=== PATIENT | male | born 1950 | race Caucasian/White ===

== ENCOUNTER 2016-10-10 00:38 | Observation (INO) | payer OTHER ==
[~2016-10-10] VITALS: Ht 172.7 cm; Wt 76.0 kg
[2016-10-10] VITALS (32 sets, daily range): BP systolic 100–145; BP diastolic 50–96; PULSE 48–116; RESP 16–20; TEMP 97.9–98.8; O2SAT 92–100
[~2016-10-10 00:38] MED LIST: 1-ME1LIQ OR; ASPI81TA11 OR; CYCL1PAK PO; GEMF600T PO; IBUP800T23 PO; LEVI20TA PO; LIPI20TA PO; LISI-360 PO; METO25 PO; PRIL40CA PO; RANI150 PO; VENTAER INH
[2016-10-10] MEDS ORDERED: ATOR40TA16 PO (00:49)
[2016-10-10] MEDS ORDERED: ASPI81CH CHEW (00:49)
[2016-10-10] MEDS ORDERED: AMLO10TA2 PO (00:49)
[2016-10-10] MEDS ORDERED: PRIL20TA2 PO (00:49)
[2016-10-10] MEDS ORDERED: METO-424 PO (00:49)
[2016-10-10] MEDS ORDERED: LISI10TA3 PO (00:49)
[2016-10-10] MEDS ORDERED: ASPIRIN 81 MG CHEW TAB PO ONE (01:00)
[2016-10-10] MEDS ORDERED: SODIUM CHLORIDE 0.9% FLUSH 10 ML FLUSH IVF PRN (01:00)
[2016-10-10] MEDS ORDERED: DILTIAZEM HCL 25 MG/5 ML VIAL IV ONE (01:00)
--- NOTE | 2016-10-10 01:06 | RADRPT ---
EXAM DATE/TIME: 10/10/2016 00:45 [place] COMPARISON: No previous studies available for comparison. INDICATIONS : Pt having chest palpitations and A-Fib tonight. MEDICAL HISTORY : Hypertension. Hypercholesterolemia. Gastroesophageal reflux disease. SURGICAL HISTORY : None. ENCOUNTER: Initial ACUITY: 1 day PAIN SCORE: 8/10 LOCATION: Bilateral chest FINDINGS: 2 AP semierect views of the chest demonstrates the lungs to be symmetrically aerated without evidence of mass, infiltrate or effusion. The cardiomediastinal contours are unremarkable. Osseous structur es are intact. CONCLUSION: No acute disease. Mt Dodd MD on October 10, 2016 at 1:04 Board Certified Radiologist. This report was verified electronically.
[2016-10-10] MEDS ORDERED: DILTIAZEM INJ 125 MG in SODIUM CHLORIDE 0.9% INJ 100 ML IV SCH (01:15)
[2016-10-10] MEDS ORDERED: DILTIAZEM HCL 50 MG/10 ML VIAL IV PUSH ONE (01:15)
[2016-10-10 01:17] LABS: AUTOMATED NEUTROPHIL # 4.3 TH/MM3 (1.8-7.7); BASOPHIL # 0.1 TH/MM3 (0-0.2); BASOPHIL % 0.8 % (0.0-2.0); EOSINOPHIL # 0.1 TH/MM3 (0-0.4); EOSINOPHIL % 1.3 % (0.0-4.0); HEMATOCRIT 46.8 % (39.0-51.0); HEMO FLAGS DIFF FINAL; LYMPH % 33.1 % (9.0-44.0); LYMPHOCYTE # 2.4 TH/MM3 (1.0-4.8); MEAN CELL VOLUME 97.3 FL (80.0-100.0); MEAN CORPUSCULAR HEMOGLOBIN 33.8 PG (27.0-34.0); MEAN CORPUSCULAR HGB CONC 34.8 % (32.0-36.0); MONO % 6.4 % (0.0-8.0); NEUT % 58.4 % (16.0-70.0); PLATELET COUNT 219 TH/MM3 (150-450); RED BLOOD COUNT 4.81 MIL/MM3 (4.50-5.90); RED CELL DISTRIBUTION WIDTH 12.5 % (11.6-17.2); WHITE BLOOD COUNT 7.3 TH/MM3 (4.0-11.0)
[2016-10-10] MEDS ORDERED: MORPHINE SULFATE 4 MG/ML INJ IV PUSH ONE ×2 (01:30→05:15)
[2016-10-10 01:38] LABS: ANION GAP 13 MEQ/L (5-15); BICARBONATE 19.9 MEQ/L (21.0-32.0); BLOOD UREA NITROGEN 13 MG/DL (7-18); CHLORIDE 107 MEQ/L (98-107); GLOMERULAR FILTRATION RATE 71 ML/MIN (>89); POTASSIUM 3.6 MEQ/L (3.5-5.1); SODIUM (NA) 140 MEQ/L (136-145)
[2016-10-10 01:42] LABS: CREATINE KINASE 121 U/L (39-308)
[2016-10-10 01:45] LABS: INTERNATIONAL NORMALIZED RATIO 0.9 RATIO; PROTHROMBIN TIME - PATIENT 10.4 SEC (9.8-11.6)
[2016-10-10 01:54] LABS: CKMB 1.7 NG/ML (0.5-3.6)
--- NOTE | 2016-10-10 02:32 | PD ---
HPI Chief Complaint: Cardiac Complaint Time Seen by Provider: 00:47 Travel History International Travel<30 days: No Contact w/Intl Traveler<30days: No Traveled to known affect area: No History of Present Illness HPI Patient is a 66-year-old male who comes in complaining of heart palpitations, chest pain, shortness of breath. He said this started this evening. He says he had about 3 beers tonight. He says he is feeling well prior to the event. He says this happened to him about 10 years ago, and it sounds like he might of had an ablation at that time. He has not been on any medications for this. He denies fever or chills. He denies any recent travel. He denies any leg swelling or calf tenderness. PFSH Past Medical History Blood Disorders: No Anxiety: No Depression: No Heart Rhythm Problems: No Cancer: No Cardiovascular Problems: Yes High Cholesterol: Yes Chemotherapy: No Chest Pain: No Congestive Heart Failure: No Diminished Hearing: No Endocrine: No Gastrointestinal Disorders: Yes GERD: Yes Genitourinary: No Hepatitis: No Hiatal Hernia: No Hypertension: Yes Immune Disorder: No Musculoskeletal: No Neurologic: No Psychiatric: No Reproductive: No Respiratory: No Myocardial Infarction: No Radiation Therapy: No Ulcer: No Past Surgical History Abdominal Surgery: No AICD: No Appendectomy: No Arteriovenous Shunt: No Cardiac Surgery: No Cholecystectomy: No Ear Surgery: No Endocrine Surgery: No Eye Surgery: No Genitourinary Surgery: No Gynecologic Surgery: No Insulin Pump: No Joint Replacement: No Oral Surgery: No Pacemaker: No Thoracic Surgery: No Other Surgery: Yes Social History Alcohol Use: Yes (SOCIAL) Tobacco Use: Yes (1/2 PACK A DAY) Substance Use: No Allergies-Medications (Allergen,Severity, Reaction): Coded Allergies: Monosodium Glutamate (Verified Allergy, Intermediate, Hives, 10/10/16) Reported Meds & Prescriptions Reported Meds & Active Scripts Active Reported Prilosec (Omeprazole Magnesium) 20 Mg Tab 20 Mg PO DAILY Aspirin 81 Mg Chew 81 Mg CHEW DAILY Atorvastatin (Atorvastatin Calcium) 40 Mg Tab 40 Mg PO HS Metoprolol Tartrate 37.5 Mg Tab 37.5 Mg PO DAILY Lisinopril 10 Mg Tab 10 Mg PO DAILY Amlodipine (Amlodipine Besylate) 10 Mg Tab 10 Mg PO DAILY Review of Systems Except as stated in HPI: all other systems reviewed are Neg General / Constitutional: No: Fever, Chills HENT: No: Headaches, Lightheadedness Cardiovascular: Positive: Chest Pain or Discomfort, Palpitations Respiratory: Positive: Shortness of Breath Gastrointestinal: No: Nausea, Vomiting Musculoskeletal: No: Myalgias, Edema, Pain Skin: No Rash, No Change in Pigmentation Neurologic: No: Weakness, Dizziness Physical Exam Narrative GENERAL: Awake and alert, in no acute distress. SKIN: Focused skin assessment warm/dry. HEAD: Atraumatic. Normocephalic. EYES: Pupils equal and round. No scleral icterus. ENT: Mucous membranes pink and moist. NECK: Trachea midline. No JVD. CARDIOVASCULAR: Irregular rhythm, rapid rate. No murmur appreciated. RESPIRATORY: No accessory muscle use. Clear to auscultation. Breath sounds equal bilaterally. GASTROINTESTINAL: Abdomen soft, non-tender, nondistended. MUSCULOSKELETAL: No obvious deformities. No clubbing. No cyanosis. No edema. NEUROLOGICAL: Awake and alert. No obvious cranial nerve deficits. Motor grossly within normal limits. Normal speech. PSYCHIATRIC: Appropriate mood and affect; insight and judgment normal. Data Data Last Documented VS Vital Signs Date Time Temp Pulse Resp B/P Pulse Ox O2 Delivery O2 Flow Rate FiO2 10/10/16 03:00 90 16 105/65 98 Nasal Cannula 2 10/10/16 00:41 98.8 Orders Ecg Monitoring (10/10/16 00:47) Blood Pressure (10/10/16 00:47) Iv Access Insert/Monitor (10/10/16 00:47) Oximetry (10/10/16 00:47) Vital Signs (10/10/16 00:47) Sodium Chloride 0.9% Flush (Ns Flush) (10/10/16 01:00) Diltiazem Inj (Cardizem Inj) (10/10/16 01:15) Basic Metabolic Panel (Bmp) (10/10/16 00:47) Ckmb (Isoenzyme) Profile (10/10/16 00:47) Complete Blood Count With Diff (10/10/16 00:47) Magnesium (Mg) (10/10/16 00:47) Prothrombin Time / Inr (Pt) (10/10/16 00:47) Act Partial Throm Time (Ptt) (10/10/16 00:47) Troponin I (10/10/16 00:47) Chest, Single Ap (10/10/16 00:47) Aspirin Chew (Aspirin Chew) (10/10/16 01:00) Diltiazem Inj (Cardizem Inj) (10/10/16 01:00) Diltiazem Inj (Cardizem Inj) (10/10/16 01:15) Morphine Inj (Morphine Inj) (10/10/16 01:30) CKMB (10/10/16 00:58) CKMB% (10/10/16 00:58) Electrocardiogram (10/10/16 ) Admit Order (Ed Use Only) (10/10/16 ) Labs Laboratory Tests Test 10/10/16 00:58 White Blood Count 7.3 TH/MM3 Red Blood Count 4.81 MIL/MM3 Hemoglobin 16.3 GM/DL Hematocrit 46.8 % Mean Corpuscular Volume 97.3 FL Mean Corpuscular Hemoglobin 33.8 PG Mean Corpuscular Hemoglobin 34.8 % Concent Red Cell Distribution Width 12.5 % Platelet Count 219 TH/MM3 Mean Platelet Volume 7.9 FL Neutrophils (%) (Auto) 58.4 % Lymphocytes (%) (Auto) 33.1 % Monocytes (%) (Auto) 6.4 % Eosinophils (%) (Auto) 1.3 % Basophils (%) (Auto) 0.8 % Neutrophils # (Auto) 4.3 TH/MM3 Lymphocytes # (Auto) 2.4 TH/MM3 Monocytes # (Auto) 0.5 TH/MM3 Eosinophils # (Auto) 0.1 TH/MM3 Basophils # (Auto) 0.1 TH/MM3 CBC Comment DIFF FINAL Differential Comment Prothrombin Time 10.4 SEC Prothromb Time International 0.9 RATIO Ratio Activated Partial 29.0 SEC Thromboplast Time Sodium Level 140 MEQ/L Potassium Level 3.6 MEQ/L Chloride Level 107 MEQ/L Carbon Dioxide Level 19.9 MEQ/L Anion Gap 13 MEQ/L Blood Urea Nitrogen 13 MG/DL Creatinine 1.05 MG/DL Estimat Glomerular Filtration 71 ML/MIN Rate Random Glucose 194 MG/DL Calcium Level 8.7 MG/DL Magnesium Level 2.0 MG/DL Total Creatine Kinase 121 U/L Creatine Kinase MB 1.7 NG/ML Troponin I LESS THAN 0.02 NG/ML MDM Medical Decision Making Medical Screen Exam Complete: Yes Emergency Medical Condition: Yes Medical Record Reviewed: Yes Interpretation(s) ECG shows A. fib with RVR. Differential Diagnosis ACS versus atrial fibrillation versus electrolyte abnormality versus dehydration versus NSTEMI versus STEMI Narrative Course Patient is a 66-year-old male comes in complaining of rapid heart rate and chest pain. He is found to have any irregular rhythm, rapid rate. He is in A. fib with RVR. IV established, patient connected to secured entrance monitor. Labs sent. He received 20 mg of Cardizem by EMS prior to arrival. Given second bolus of Cardizem here and started on a drip. His pulse improved from those 140s to the high 90s, low 100s. He is given morphine for chest pain. Labs show no acute abnormalities. Chest x-ray shows no acute abnormalities. He will be admitted for further management. Diagnosis Primary Impression: Atrial fibrillation with RVR Additional Impression: Chest pain Qualified Code: R07.9 - Chest pain, unspecified type Admitting Information Admitting Physician Requests: Admit Condition: Stable Suzy Ovalle MD Oct 10, 2016 02:32
[2016-10-10] MEDS ORDERED: POTASSIUM CHLORIDE 20 MEQ CONTROLLED RELEASE TAB PO ONE (05:15)
[2016-10-10] MEDS: METOPROLOL TARTRATE 25 MG TAB PO SCH ×2 (09:33→21:15)
[2016-10-10] MEDS ORDERED: CALCIUM CARBONATE 500 MG CHEWABLE TAB CHEW PRN (12:00)
[2016-10-10] MEDS ORDERED: DILTIAZEM HCL 60 MG TAB PO SCH (12:00)
--- NOTE | 2016-10-10 12:11 | ECHRPT ---
Indication: Persistent atrial fibrillation CONCLUSIONS Normal left ventricular size. The left ventricular systolic function is normal with an estimated ejection fraction in the range of 55-60%. Normal left ventricular size. The left ventricular systolic function is normal with an estimated ejection fraction in the range of 55-60%. Mild concentric left ventricular hypertrophy. Normal atrial septal thickness. Mild mitral annular calcification. Mild thickening of the mitral valve leaflets. Trace mitral valve regurgitation. . The aortic valve is not well visualized. Aortic valve sclerosis is present. Mild aortic valve regurgitation. There is mild tricuspid valve regurgitation. RVSP 35mmhg The pulmonary valve is not well visualized. The inferior vena cava is dilated. BP: 100 / 50 HR: 72 Rhythm: MEASUREMENTS (Male / Female) Normal Values Technical Quality:Good, Fair 2D ECHO LV Diastolic Diameter PLAX 4.4 cm 4.2 - 5.9 / 3.9 - 5.3 cm LV Systolic Diameter PLAX 3.2 cm IVS Diastolic Thickness 1.7 cm 0.6 - 1.0 / 0.6 - 0.9 cm LVPW Diastolic Thickness 1.2 cm 0.6 - 1.0 / 0.6 - 0.9 cm LV Relative Wall Thickness 0.7 RV Internal Dim ED PLAX 2.5 cm M-MODE Aortic Root Diameter MM 3.3 cm LA Systolic Diameter MM 3.2 cm LA Ao Ratio MM 1.0 AV Cusp Separation MM 2.1 cm DOPPLER TR Peak Velocity 251.0 cm/s TR Peak Gradient 25.2 mmHg FINDINGS LEFT VENTRICLE Normal left ventricular size. The left ventricular systolic function is normal with an estimated ejection fraction in the range of 55-60%. Mild concentric left ventricular hypertrophy. RIGHT VENTRICLE Normal right ventricular size and systolic function. LEFT ATRIUM The left atrial size is normal. RIGHT ATRIUM The right atrial size is normal. ATRIAL SEPTUM Normal atrial septal thickness. AORTA The aortic root and proximal ascending aorta are normal in size on limited imaging. MITRAL VALVE Mild mitral annular calcification. Mild thickening of the mitral valve leaflets. Trace mitral valve regurgitation. AORTIC VALVE . The aortic valve is not well visualized. Aortic valve sclerosis is present. Mild aortic valve regurgitation. TRICUSPID VALVE Structurally normal tricuspid valve. No tricuspid valve stenosis or regurgitation. There is mild tricuspid valve regurgitation. RVSP 35mmhg PULMONARY VALVE The pulmonary valve is not well visualized. VESSELS The inferior vena cava is dilated. PERICARDIUM No pericardial effusion. OTHER FINDINGS IVC 2.3 Tommy Hill MD (Electronically Signed) Final Date:10 October 2016 12:11
[2016-10-10 12:13] LABS: ANION GAP 10 MEQ/L (5-15); BLOOD UREA NITROGEN 14 MG/DL (7-18); CHLORIDE 108 MEQ/L (98-107); GLOMERULAR FILTRATION RATE 99 ML/MIN (>89); POTASSIUM 4.8 MEQ/L (3.5-5.1); SODIUM (NA) 140 MEQ/L (136-145)
[2016-10-10] MEDS: PANTOPRAZOLE SOD 20 MG DELAYED RELEASE TAB PO SCH (12:14)
[2016-10-10] MEDS: DILTIAZEM HCL 30 MG TAB PO SCH (12:14)
--- NOTE | 2016-10-10 12:43 | HHI.HP ---
HPI Service CP Hospitalists Primary Care Physician No Primary Care Physician Admission Diagnosis Afib with RVR Chief Complaint: palpitations Travel History International Travel<30 Days: No Contact w/Intl Traveler <30 Da: No Traveled to Known Affected Are: No History of Present Illness Patient is a pleasant 66-year-old male with history of hypertension, hyperlipidemia, and prostate cancer. Patient presented to the ER yesterday with complaint of palpitations which had been occurring for approximately 90 minutes prior to arrival. Patient stated that he had some associated mild chest pain. There was no shortness of breath, no nausea or vomiting, no diaphoresis. Per patient in the field his heart rate was in the 130s. In the ER patient was found to be in atrial fibrillation with rapid ventricular response. Patient was given IV Cardizem and then started on a Cardizem drip. This morning patient was hypotensive with controlled heart rate, so Cardizem drip was stopped. Blood pressure readings have improved, and I have started patient on PO Cardizem. Patient has a long smoking history. Patient chronically has what he describes as GERD. Patient complains of a burning pain with GERD and points to his mid chest and left chest. Patient states that he is prescribed Prilosec, but this does not really improve his symptoms. Patient states that he has previously been admitted for palpitations, but could not remember the specifics. I have reviewed the patient's records in [facility]. Patient had several admissions and ER visits in 2005 and 2006 for palpitations. In 2005 patient was brought to the ER by EMS for possible SVT patient received Adenocard in the ER. But per the ER physician's notes, there were no cardiac strips to review. Patient was again in the ER and subsequently admitted in June 2006 with complaint of chest pain and palpitations. 06/17/2006 patient had a Lexiscan which was essentially normal. Patient returned to the ER January 2007 with complaint of chest pain at that time patient had a cardiac catheterization performed by Dr. Bullard 01/14/17. The diagonal branches were noted to have a 30% to 40% stenosis proximally. The first obtuse marginal branch artery mid segment noted to have a 40-50% stenosis. The right coronary artery had a 30-40% stenosis of the mid segment. EF was estimated at 60%. Review of Systems Constitutional: DENIES: Diaphoretic episodes, Fatigue, Fever, Weight gain, Weight loss, Chills, Dizziness, Change in appetite, Night Sweats Endocrine: DENIES: Heat/cold intolerance, Polydipsia, Polyuria, Polyphagia Eyes: DENIES: Blurred vision, Diplopia, Eye inflammation, Eye pain, Vision loss , Photosensitivity, Double Vision Ears, nose, mouth, throat: DENIES: Tinnitus, Hearing loss, Vertigo, Nasal discharge, Oral lesions, Throat pain, Hoarseness, Ear Pain, Running Nose, Epistaxis, Sinus Pain, Toothache, Odynophagia Respiratory: DENIES: Apneas, Cough, Snoring, Wheezing, Hemoptysis, Sputum production, Shortness of breath Cardiovascular: COMPLAINS OF: Chest pain, Palpitations, DENIES: Syncope, Dyspnea on Exertion, PND, Lower Extremity Edema, Orthopnea, Claudication Gastrointestinal: DENIES: Abdominal pain, Black stools, Bloody stools, BRB per rectum, Constipation, Diarrhea, GERD, Nausea, Reflux, Vomiting, Difficulty Swallowing, Anorexia Genitourinary: DENIES: Urinary frequency, Urinary incontinence, Urgency, Hematuria, Dysuria, Nocturia Musculoskeletal: DENIES: Joint pain, Muscle aches, Stiffness, Joint Swelling, Back pain, Neck pain Integumentary: DENIES: Abnormal pigmentation, Nail changes, Pruritus, Rash Hematologic/lymphatic: DENIES: Bruising, Lymphadenopathy Immunologic/allergic: DENIES: Eczema, Urticaria Neurologic: DENIES: Abnormal gait, Headache, Localized weakness, Paresthesias, Seizures, Speech Problems, Tremor, Poor Balance Psychiatric: DENIES: Anxiety, Confusion, Mood changes, Depression, Hallucinations, Agitation, Suicidal Ideation, Homicidal Ideation, Delusions, History of Bipolar, History of Schizophrenia Past Family Social History Past Medical History 1) hypertension 2) hyperlipidemia 3) GERD 4) erectile dysfunction 5) history of prostate cancer, received radiation therapy Past Surgical History Repair of left ankle fracture following orthopedic injuries secondary to fall Reported Medications Reported Meds & Active Scripts Active Reported Prilosec (Omeprazole Magnesium) 20 Mg Tab 20 Mg PO DAILY Aspirin 81 Mg Chew 81 Mg CHEW DAILY Atorvastatin (Atorvastatin Calcium) 40 Mg Tab 40 Mg PO HS Metoprolol Tartrate 37.5 Mg Tab 37.5 Mg PO DAILY Lisinopril 10 Mg Tab 10 Mg PO DAILY Amlodipine (Amlodipine Besylate) 10 Mg Tab 10 Mg PO DAILY Allergies: Coded Allergies: Monosodium Glutamate (Verified Allergy, Intermediate, Hives, 10/10/16) Family History Mother secondary to cancer, possibly lung cancer Father to dates 78, possibly due to unspecified liver disease Patient has 2 brothers and 2 sisters, some of whom have hypertension Social History - originally from [facility] - Patient is retired - , 2 grown children but they do not live locally - Patient smokes one pack per day for the last 45 years - Alcohol: 2 beers per day, patient denies any history of alcohol withdrawal - Patient denies use of marijuana or any other illicit drugs Physical Exam Vital Signs Vital Signs Date Time Temp Pulse Resp B/P Pulse Ox O2 Delivery O2 Flow Rate FiO2 10/10/16 11:21 98.3 92 18 123/96 92 10/10/16 11:01 64 10/10/16 10:00 74 10/10/16 09:00 74 10/10/16 08:45 94 Nasal Cannula 10/10/16 08:45 97.9 97 18 114/77 94 10/10/16 08:01 62 10/10/16 07:00 72 10/10/16 06:15 98.0 79 20 100/50 92 10/10/16 06:15 Nasal Cannula 2.00 10/10/16 05:25 88 16 111/68 98 Nasal Cannula 2 10/10/16 04:32 105 16 127/62 100 Nasal Cannula 2 10/10/16 04:15 95 16 137/84 95 Nasal Cannula 2 10/10/16 03:00 90 16 105/65 98 Nasal Cannula 2 10/10/16 02:27 79 16 138/65 94 Room Air 10/10/16 02:00 105 130/60 10/10/16 01:45 105 110/56 10/10/16 01:30 100 109/57 10/10/16 01:15 105 16 130/67 98 10/10/16 00:41 98.8 116 17 145/86 94 Physical Exam GENERAL: This is a well-nourished, well-developed patient, in no apparent distress. SKIN: No rashes, ecchymoses or lesions. Cool and dry. HEAD: Atraumatic. Normocephalic. No temporal or scalp tenderness. EYES: Pupils equal round and reactive. Extraocular motions intact. No scleral icterus. No injection or drainage. ENT: Nose without bleeding, purulent drainage or septal hematoma. Throat without erythema, tonsillar hypertrophy or exudate. Uvula midline. Airway patent. NECK: Trachea midline. No JVD or lymphadenopathy. Supple, nontender, no meningeal signs. CARDIOVASCULAR: Regular rate and rhythm without murmurs, gallops, or rubs. RESPIRATORY: Clear to auscultation. Breath sounds equal bilaterally. No wheezes , rales, or rhonchi. GASTROINTESTINAL: Abdomen soft, non-tender, nondistended. No hepato-splenomegaly , or palpable masses. No guarding. MUSCULOSKELETAL: Extremities without clubbing, cyanosis, or edema. No joint tenderness, effusion, or edema noted. No calf tenderness. Negative Homans sign bilaterally. NEUROLOGICAL: Awake and alert. Cranial nerves II through XII intact. Motor and sensory grossly within normal limits. Five out of 5 muscle strength in all muscle groups. Normal speech. Laboratory Laboratory Tests Test 10/10/16 10/10/16 10/10/16 00:58 05:09 11:23 White Blood Count 7.3 Red Blood Count 4.81 Hemoglobin 16.3 Hematocrit 46.8 Mean Corpuscular Volume 97.3 Mean Corpuscular Hemoglobin 33.8 Mean Corpuscular Hemoglobin 34.8 Concent Red Cell Distribution Width 12.5 Platelet Count 219 Mean Platelet Volume 7.9 Neutrophils (%) (Auto) 58.4 Lymphocytes (%) (Auto) 33.1 Monocytes (%) (Auto) 6.4 Eosinophils (%) (Auto) 1.3 Basophils (%) (Auto) 0.8 Neutrophils # (Auto) 4.3 Lymphocytes # (Auto) 2.4 Monocytes # (Auto) 0.5 Eosinophils # (Auto) 0.1 Basophils # (Auto) 0.1 CBC Comment DIFF FINAL Differential Comment Prothrombin Time 10.4 Prothromb Time International 0.9 Ratio Activated Partial 29.0 Thromboplast Time Sodium Level 140 140 Potassium Level 3.6 4.8 Chloride Level 107 108 Carbon Dioxide Level 19.9 22.0 Anion Gap 13 10 Blood Urea Nitrogen 13 14 Creatinine 1.05 0.79 Estimat Glomerular Filtration 71 99 Rate Random Glucose 194 101 Calcium Level 8.7 8.8 Magnesium Level 2.0 Total Creatine Kinase 121 Creatine Kinase MB 1.7 Troponin I LESS THAN 0.02 LESS THAN 0.02 LESS THAN 0.02 Thyroid Stimulating Hormone 0.417 3rd Gen Result Diagram: 10/10/16 0058 10/10/16 1123 Imaging Last Impressions Chest X-Ray 10/10/16 0047 Signed Impressions: Service Date/Time: Monday, October 10, 2016 00:45 - CONCLUSION: No acute disease. Mt Dodd MD Septic Shock Reassessment Heart: Regular rate and rhythm Lungs: Clear Skin: Warm Peripheral Pulses: Bounding Right Radial Bounding Left Radial Bounding Right Popliteal Bounding Left Popliteal Bounding Right Dorsalis Pedis Bounding Left Dorsalis Pedis Bounding Right Posterior Tibial Bounding Left Posterior Tibial Capillary Refill: Brisk Assessment and Plan Problem List: (1) Atrial fibrillation with RVR Status: Acute Plan: - Patient admitted with atrial fibrillation with rapid ventricular response - He should receive IV Cardizem boluses and started on Cardizem drip in the ER - Cardizem drip stopped (10/10/16) due to hypotension, blood pressure recovered - Patient started on short acting by mouth Cardizem 30 mg by mouth every 6 hours - TSH is within normal limits - Echocardiogram pending - Patient seen by cardiology, Dr. Hill - Continue aspirin 81 mg by mouth daily - We'll review antiplatelet therapy prior to discharge X - Patient with history of hospitalization in 2005 and 2006 with complaints of chest pain or palpitations - Lexiscan 06/17/2006 --> no acute findings - [facility] 01/[address] Bullard - The diagonal branches were noted to have a 30% to 40% stenosis proximally. - The first obtuse marginal branch artery mid segment noted to have a 40-50% stenosis. - The right coronary artery had a 30-40% stenosis of the mid segment. - EF was estimated at 60%. - Holter 06/2006 - NSR, runs of SVT with longest of 8 beats - case d/w Dr. Hill (10/10/16) - Serial cardiac enzymes are negative - Obtain Lexiscan in a.m. (2) Chest pain Status: Acute Plan: - see above (3) GERD (gastroesophageal reflux disease) Status: Acute Plan: - continue PPI - tums prn - anginal equivalent? (4) Hyperlipidemia Status: Acute Plan: - LDL 141 (09/09/16) - Triglycerides 261 (09/09/16) - Continue statin therapy - Obtain fasting lipid panel in a.m. (5) History of prostate cancer Status: Acute (6) Hypertension Status: Chronic Plan: - Outpatient Mr. Carrasco takes metoprolol, lisinopril, Norvasc - I am starting patient on short acting Cardizem - Hold outpatient blood pressure medications for now - Observe blood pressure readings Physician Certification 2 Midnight Certification Type: Admission for Inpatient Services Order for Inpatient Services The services are ordered in accordance with Medicare regulations or non- Medicare payer requirements, as applicable. In the case of services not specified as inpatient-only, they are appropriately provided as inpatient services in accordance with the 2-midnight benchmark. Estimated LOS (days): 3 3 days is the estimated time the patient will need to remain in the hospital, assuming treatment plan goals are met and no additional complications. Post-Hospital Plan: Not yet determined Problem Qualifiers (1) Chest pain: Qualified Code: R07.9 - Chest pain, unspecified type (2) GERD (gastroesophageal reflux disease): Qualified Code: K21.9 - Gastroesophageal reflux disease, esophagitis presence not specified (3) Hyperlipidemia: Qualified Code: E78.2 - Mixed hyperlipidemia (4) Hypertension: Qualified Code: I10 - Essential hypertension Jaylen Menjivar DO Oct 10, 2016 12:43
--- NOTE | 2016-10-10 14:22 | MB ---
cc: TOMMY HILL EDWARD B. DO DATE OF CONSULTATION 10/10/16 I have reviewed prior hospital records and spoken with the patient. HISTORY OF PRESENT ILLNESS He is a 66-year-old white man I am seeing for atrial fibrillation. The patient has had atypical left-sided chest discomfort in the past with normal SPECT nuclear in 2006. Catheterization 01/2007 showed normal left ventricular function, 30-40% narrowing of the diagonal, 40-50% obtuse marginal #1, 30-40% mid RCA. He gets occasional atypical chest discomfort and reflux which is not exertional and unchanged. Late last night the patient developed fluttering in his heart beat. There were no associated symptoms. He sought attention in the emergency room and apparently had atrial fibrillation with mildly elevated response and was given diltiazem by paramedics. His diltiazem has been stopped because of some bradycardia. EKG showed no acute changes. Chest x-ray showed no active disease. LABORATORY FINDINGS TSH is pending. CBC, PT/PTT normal. Potassium 3.6, glucose 194, troponins negative x2 with normal CPK. MEDICATIONS PRIOR TO ADMISSION Reviewed. PAST MEDICAL HISTORY 1. Hypertension. 2. Hyperlipidemia. 3. COPD with tobacco abuse. 4. Prostate cancer with radiation therapy. 5. Atypical chest pain. SOCIAL HISTORY He is and smokes a half-pack per day and has two to three beers per day. ALLERGIES MSG. FAMILY HISTORY Noncontributory for premature coronary disease. The patient has mild stable dyspnea on exertion but no other cardiopulmonary symptoms or history except for atypical chest discomfort which he still has and has had since yesterday in his left upper anterolateral chest. The patient has mild stable dyspnea at moderate activity level such as climbing stairs. He notes no fevers, chills, sputum production. PHYSICAL EXAMINATION VITAL SIGNS: On exam afebrile. Vital signs stable. HEENT: There are no xanthelasma and oral pharyngeal mucosa normal. CHEST: Without significant kyphoscoliosis. There is markedly decreased breath sounds with mild giang expiratory wheezes. NECK: JVD normal. CARDIOVASCULAR: S1-S2. No murmurs or gallops with an irregular rhythm. ABDOMEN: Benign. EXTREMITIES: Show no cyanosis, clubbing or edema. Pulses 1 to 2+ throughout without bruits. He has not ambulated. PROBLEM 1. Atrial fibrillation with mildly rapid response. 2. Atypical chest pain. 3. Hypertension. 4. Probable diabetes. 5. Hyperlipidemia. 6. Tobacco abuse. RECOMMENDATIONS 1. Diltiazem has been discontinued. I will restart his beta blockers. This can be increased for rate control. 2. Given the patient's risk factors I would lean towards full anticoagulation with one of the newer agents. The risks/benefits/alternatives have been explained. The patient is hesitant and I will leave it to the [facility] hospitalist to discuss with the patient and possibly start. This would be instead of aspirin 3. Low cholesterol/salt diet. 4. Diabetic workup per primary service. 5. TSH level and echocardiogram are pending. 6. Tobacco abstinence which we have discussed. 7. 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 He will likely need a SPECT nuclear stress test as an outpatient but with negative enzyme this can be deferred. I have gone over the importance of risk factor modification. I will not follow but be available if needed. All questions were answered. Tommy Hill MD ASG/DOMITILA /8:30 AM /2:08 PM
[2016-10-10] MEDS: ATORVASTATIN 40 MG TAB PO SCH (21:15)
[2016-10-11] VITALS (27 sets, daily range): BP systolic 104–152; BP diastolic 58–89; PULSE 48–97; RESP 16–20; TEMP 97.8–98.2; O2SAT 92–97
[2016-10-11 05:17] LABS: BICARBONATE 23.2 MEQ/L (21.0-32.0); MAGNESIUM 2.1 MG/DL (1.5-2.5); POTASSIUM 4.2 MEQ/L (3.5-5.1)
[2016-10-11] MEDS: DILTIAZEM HCL 30 MG TAB PO SCH ×2 (06:00→11:10)
[2016-10-11] MEDS: PANTOPRAZOLE SOD 20 MG DELAYED RELEASE TAB PO SCH (08:18)
[2016-10-11] MEDS: ASPIRIN 81 MG CHEW TAB CHEW SCH (08:19)
[2016-10-11] MEDS: METOPROLOL TARTRATE 25 MG TAB PO SCH ×3 (09:00→20:24)
--- NOTE | 2016-10-11 09:52 | EKG ---
Date Performed: 10/10/2016 Time Performed: 04:55:51 PTAGE: 66 years EKG: ATRIAL FIBRILLATION ABNORMAL RHYTHM ECG PREVIOUS TRACING : 01/14/2007 03.38 DOCTOR: Ramiro Arredondo Interpretating Date/Time 10/11/2016 09:41:42
--- NOTE | 2016-10-11 09:55 | EKG ---
Date Performed: 10/10/2016 Time Performed: 00:44:08 PTAGE: 66 years EKG: ATRIAL FIBRILLATION WITH RAPID VENTRICULAR RESPONSE NONSPECIFIC ST & T-WAVE ABNORMALITY ABN ORMAL ECG NO PREVIOUS TRACING DOCTOR: Ramiro Arredondo Interpretating Date/Time 10/11/2016 09:45:42
[2016-10-11] MEDS ORDERED: INFLUENZA VIRUS VACCINE (QUADRIVALENT) 0.5 ML SYR IM ONE (10:00)
[2016-10-11] MEDS ORDERED: PNEUMOCOCCAL POLYVALENT INJ 25 MCG/0.5 ML SYR IM ONE (10:00)
--- NOTE | 2016-10-11 11:24 | HHI.PR ---
Subjective Remarks No palpitations. No chest pain, sob, n/v, or diaphoresis. Objective Vitals Vital Signs Date Time Temp Pulse Resp B/P Pulse Ox O2 Delivery O2 Flow Rate FiO2 10/11/16 10:01 62 10/11/16 09:00 56 10/11/16 08:01 97.9 97 18 132/85 94 10/11/16 08:01 61 10/11/16 08:01 94 Nasal Cannula 10/11/16 07:01 50 10/11/16 06:00 49 10/11/16 05:00 50 10/11/16 04:21 98.1 51 16 112/58 94 10/11/16 04:00 56 10/11/16 03:00 50 10/11/16 02:00 54 10/11/16 01:00 58 10/11/16 00:46 98.1 54 16 104/58 92 10/11/16 00:00 55 10/10/16 23:00 52 10/10/16 22:00 56 10/10/16 21:22 95 Room Air 10/10/16 21:18 63 135/73 10/10/16 21:00 66 10/10/16 20:00 56 10/10/16 20:00 98.0 58 18 135/73 96 10/10/16 19:00 59 10/10/16 18:01 56 10/10/16 17:00 48 10/10/16 16:01 48 10/10/16 15:01 98.0 55 18 120/71 95 10/10/16 15:00 56 10/10/16 14:00 58 10/10/16 13:00 88 10/10/16 12:00 84 10/10/16 10/10/16 10/11/16 15:00 23:00 07:00 Intake Total 740 ml Output Total 1700 ml Balance -960 ml Intake Oral 690 ml IV Total 50 ml Output Urine Total 1700 ml # Voids 5 # Bowel Movements 0 Result Diagram: 10/10/16 0058 10/11/16 0420 Imaging Last Impressions Chest X-Ray 10/10/16 0047 Signed Impressions: Service Date/Time: Monday, October 10, 2016 00:45 - CONCLUSION: No acute disease. Mt Dodd MD Objective Remarks GENERAL: This is a well-nourished, well-developed patient, in no apparent distress. CARDIOVASCULAR: Regular rate and rhythm without murmurs, gallops, or rubs. RESPIRATORY: Clear to auscultation. Breath sounds equal bilaterally. No wheezes , rales, or rhonchi. GASTROINTESTINAL: Abdomen soft, non-tender, nondistended. Normal active bowel sounds MUSCULOSKELETAL: Extremities without clubbing, cyanosis, or edema. NEURO: Alert & Oriented x4 to person, place, time, situation. Moves all ext x4 A/P Problem List: (1) Atrial fibrillation with RVR Status: Acute Plan: - Patient admitted with atrial fibrillation with rapid ventricular response - He should receive IV Cardizem boluses and started on Cardizem drip in the ER - Cardizem drip stopped (10/10/16) due to hypotension, blood pressure recovered - Patient started on short acting by mouth Cardizem 30 mg by mouth every 6 hours , change to long acting cardizem, continue metoprolol 25mg BID - TSH is within normal limits - Echocardiogram pending - Patient seen by cardiology, Dr. Hill - Continue aspirin 81 mg by mouth daily - We'll review antiplatelet therapy prior to discharge X - Patient with history of hospitalization in 2005 and 2006 with complaints of chest pain or palpitations - Lexiscan 06/17/2006 --> no acute findings - [facility] 01/[address] Bullard - The diagonal branches were noted to have a 30% to 40% stenosis proximally. - The first obtuse marginal branch artery mid segment noted to have a 40-50% stenosis. - The right coronary artery had a 30-40% stenosis of the mid segment. - EF was estimated at 60%. - Holter 06/2006 - NSR, runs of SVT with longest of 8 beats - case d/w Dr. Hill (10/10/16) - Serial cardiac enzymes are negative - serial EKGs do NOT show acute ischemic changes - Lexiscan in a.m. 10/12/16. Pt received caffeine 10/11, so the study was postponed. - [id number] score is 1. The score will be 2, once pt turns 67 in 9 months. - would prefer pt start on eliquis. Pt is hesitant. - anticipate d/c to home 10/12, if lexiscan is WNL. (2) Chest pain Status: Acute Plan: - see above (3) GERD (gastroesophageal reflux disease) Status: Acute Plan: - continue PPI - tums prn - anginal equivalent? (4) Hyperlipidemia Status: Acute Plan: - LDL 141 (09/09/16) - Triglycerides 261 (09/09/16) - Continue statin therapy - Obtain fasting lipid panel in a.m. (5) History of prostate cancer Status: Acute (6) Hypertension Status: Chronic Plan: - Outpatient Mr. Carrasco takes metoprolol, lisinopril, Norvasc - I am starting patient on short acting Cardizem - Hold outpatient blood pressure medications for now - Observe blood pressure readings Problem Qualifiers (1) Chest pain: Qualified Code: R07.9 - Chest pain, unspecified type (2) GERD (gastroesophageal reflux disease): Qualified Code: K21.9 - Gastroesophageal reflux disease, esophagitis presence not specified (3) Hyperlipidemia: Qualified Code: E78.2 - Mixed hyperlipidemia (4) Hypertension: Qualified Code: I10 - Essential hypertension Jaylen Menjivar DO Oct 11, 2016 11:24
[2016-10-11] MEDS: DILTIAZEM-CD 120 MG CAP ER PO SCH (20:24)
[2016-10-11] MEDS: ATORVASTATIN 40 MG TAB PO SCH (20:24)
[2016-10-12] VITALS (15 sets, daily range): BP systolic 132–140; BP diastolic 70–87; PULSE 43–80; RESP 18–20; TEMP 97.6–98; O2SAT 94–95
--- NOTE | 2016-10-12 08:27 | HHI.PR ---
Subjective Remarks anxious. Objective Vitals heart reg lung cta abd s/nt ext no edema Vital Signs Date Time Temp Pulse Resp B/P Pulse Ox O2 Delivery O2 Flow Rate FiO2 10/12/16 08:00 52 10/12/16 07:00 97.7 59 20 137/81 95 10/12/16 07:00 61 10/12/16 07:00 95 Room Air 10/12/16 06:00 44 10/12/16 05:00 56 10/12/16 04:00 Room Air 10/12/16 04:00 97.8 43 18 134/87 94 10/12/16 04:00 43 10/12/16 03:00 45 10/12/16 02:00 43 10/12/16 01:00 46 10/12/16 00:00 Room Air 10/12/16 00:00 48 10/12/16 00:00 98.0 46 18 132/74 95 10/11/16 23:00 48 10/11/16 22:00 50 10/11/16 21:00 64 10/11/16 20:00 98.2 66 20 133/82 97 10/11/16 20:00 66 10/11/16 20:00 Room Air 10/11/16 18:01 64 10/11/16 17:00 60 10/11/16 16:01 62 10/11/16 15:01 97.9 61 18 152/85 96 10/11/16 15:00 64 10/11/16 14:00 52 10/11/16 13:01 52 10/11/16 12:00 64 10/11/16 11:01 97.8 72 18 149/89 95 10/11/16 11:00 50 10/11/16 10:01 62 10/11/16 09:00 56 10/11/16 10/11/16 10/12/16 15:00 23:00 07:00 Intake Total 240 ml 720 ml 490 ml Output Total 775 ml 500 ml 900 ml Balance -535 ml 220 ml -410 ml Intake Oral 240 ml 720 ml 480 ml IV Total 10 ml Output Urine Total 775 ml 500 ml 900 ml # Voids 3 # Bowel Movements 0 1 0 Result Diagram: 10/10/16 0058 10/11/16419 Imaging Last Impressions Chest X-Ray 10/10/1646 Signed Impressions: Service Date/Time: Monday, October 10, 2016 00:45 - CONCLUSION: No acute disease. Mt Dodd MD A/P Problem List: (1) Atrial fibrillation with RVR Status: Acute Plan: - Patient admitted with atrial fibrillation with rapid ventricular response - He receive IV Cardizem boluses and started on Cardizem drip in the ER - Cardizem drip stopped (10/10/16) due to hypotension, blood pressure recovered - Patient started on short acting by mouth Cardizem 30 mg by mouth every 6 hours , changed to long acting cardizem, continue metoprolol 25mg BID - TSH is within normal limits - Echocardiogram pending - Patient seen by cardiology, Dr. Hill - Continue aspirin 81 mg by mouth daily - Patient with history of hospitalization in 2005 and 2006 with complaints of chest pain or palpitations - Lexiscan 06/17/2006 --> no acute findings - [facility] 01/[address] Bullard - The diagonal branches were noted to have a 30% to 40% stenosis proximally. - The first obtuse marginal branch artery mid segment noted to have a 40-50% stenosis. - The right coronary artery had a 30-40% stenosis of the mid segment. - EF was estimated at 60%. - Holter 06/2006 - NSR, runs of SVT with longest of 8 beats - Serial cardiac enzymes are negative - serial EKGs do NOT show acute ischemic changes -lexiscan today. long discussion with pt regarding anticoagulation. if juliana neg then d/c home today on bb/ccb/eliquis if he is agreeable. (2) Chest pain Status: Acute Plan: - see above (3) GERD (gastroesophageal reflux disease) Status: Acute Plan: - continue PPI - tums prn - anginal equivalent? (4) Hyperlipidemia Status: Acute Plan: - LDL 141 (09/09/16) - Triglycerides 261 (09/09/16) - Continue statin therapy - Obtain fasting lipid panel in a.m. (5) History of prostate cancer Status: Acute (6) Hypertension Status: Chronic Plan: - Outpatient Mr. Carrasco takes metoprolol, lisinopril, Norvasc - I am starting patient on short acting Cardizem - Hold outpatient blood pressure medications for now - Observe blood pressure readings Problem Qualifiers (1) Chest pain: Qualified Code: R07.9 - Chest pain, unspecified type (2) GERD (gastroesophageal reflux disease): Qualified Code: K21.9 - Gastroesophageal reflux disease, esophagitis presence not specified (3) Hyperlipidemia: Qualified Code: E78.2 - Mixed hyperlipidemia (4) Hypertension: Qualified Code: I10 - Essential hypertension Moises Mcdaniel MD Oct 12, 2016 08:27
[2016-10-12] MEDS ORDERED: REGADENOSON INJ 0.4 MG/5 ML SYR ONE (09:13)
--- NOTE | 2016-10-12 10:23 | RADRPT ---
EXAM DATE/TIME: 10/12/2016 00:00 [place] COMPARISON: No previous studies available for comparison. INDICATIONS : Atrial fibrillation. Left chest pain. Abnormal EKG. DOSE: 27.2 mCi Tc99m Myoview at stress. 8.8 mCi Tc99m Myoview at rest. 0.4 mg Lexiscan STRESS SYMPTOMS: Chest heaviness. EJECTION FRACTION: 61% MEDICAL HISTORY : Hypercholesterolemia. Hypertension. Chronic obstructive pulmonary disease. GERD. Smoker. SURGICAL HISTORY : Tonsillectomy. ENCOUNTER: Initial ACUITY: 1 day PAIN SCALE: 3/10 LOCATION: Left chest TECHNIQUE: The patient underwent pharmacologic stress with infusion of prescribed dose. Continuous ECG tracing was monitored during stress. Gated SPECT imaging was performed after stress and conventional SPECT i maging was performed at rest. The examination was performed on a SPECT/CT scanner, both attenuation and non-corrected datasets were reviewed. FINDINGS: DISTRIBUTION: The maximum perfused segment at stress is in the anteroseptal wall. PERFUSION STUDY: The pattern of perfusion at stress is within normal limits. GATED STUDY: There is intact wall motion and thickening without hypokinetic or dyskinetic segments. CONCLUSION: 1. No reversible perfusion defect to indicate stress-induced myocardial ischemia identified. RISK CATEGORY: Low (<1% Annual Mortality Rate) Bakari Vera MD on October 12, 2016 at 10:20 Board Certified Radiologist. This report was verified electronically.
[2016-10-12] MEDS: DILTIAZEM-CD 120 MG CAP ER PO SCH (10:25)
[2016-10-12] MEDS: METOPROLOL TARTRATE 25 MG TAB PO SCH (10:25)
[2016-10-12] MEDS: ASPIRIN 81 MG CHEW TAB CHEW SCH (10:26)
[2016-10-12] MEDS: PANTOPRAZOLE SOD 20 MG DELAYED RELEASE TAB PO SCH (10:26)
[2016-10-12] MEDS ORDERED: CARD120C4 PO (16:49)
[2016-10-12] MEDS ORDERED: METO25TA3 PO (16:49)
[2016-10-12] MEDS ORDERED: APIX5TAB PO (16:49)
--- NOTE | 2016-10-12 16:54 | HHI.DCPOC ---
Discharge Care Plan Diagnosis: (1) Atrial fibrillation with RVR (2) Hypertension (3) GERD (gastroesophageal reflux disease) (4) Hyperlipidemia Goals to Promote Your Health - NEW MEDICATIONS: - Cardizem 120mg once daily (Heart rate controlling medicine) - Metoprolol 25mg twice daily (Heart rate controlling medicine) --HOLD FOR HEART RATE AT 50 OR BELOW - Eliquis 5mg twice daily (Blood thinner) - HOME MEDICATIONS TO BE STOPPED: - Lisinopril - Amlodipine - Pt is to establish with a PCP, He is assigned to [facility], call for an appt for 1 week after discharge. - Followup with [facility], either Dr. Young or Dr. Arredondo, call for an appt. Directions to Meet Your Goals Take your medications as prescribed Follow your dietary instruction Follow activity as directed Keep your appointments as scheduled Take your immunizations and boosters as scheduled If your symptoms worsen call your PCP, if no PCP go to Urgent Care Center or Emergency Room Smoking is Dangerous to Your Health. Avoid second hand smoke Call the 24-hour hour crisis hotline for domestic abuse at Adeline Joyce Oct 12, 2016 16:54
== END 2016-10-12 17:40 | disposition home or self-care (01) ==
LOC: NEPE 00:38 → NEDA 03:07 → INTOOBSV 03:07 → HCIS 05:51 → UNDODISIN 10-12 17:40
PROVIDERS: ADMIT Hospitalist; ATTEND Hospitalist
DX: I48.91 Unspecified atrial fibrillation (principal); J44.9 Chronic obstructive pulmonary disease, unspecified; I10 Essential (primary) hypertension; R07.89 Other chest pain; K21.0 Gastro-esophageal reflux disease with esophagitis; E78.2 Mixed hyperlipidemia; I47.1 Supraventricular tachycardia; I25.10 Atherosclerotic heart disease of native coronary artery without angina pectoris; F17.210 Nicotine dependence, cigarettes, uncomplicated; Z23 Encounter for immunization; Z80.1 Family history of malignant neoplasm of trachea, bronchus and lung; Z82.49 Family history of ischemic heart disease and other diseases of the circulatory system; Z85.46 Personal history of malignant neoplasm of prostate; Z92.3 Personal history of irradiation
CPT/HCPCS: 71010; 78452; 80048; 82550; 82552; 82948; 83735; 84439; 84443; 84484; 85025; 85610; 85730; 90732; 93005; 93017; 93306; 96365; 96375; 99285; A9502; G0009; G0378; J2270; J2785; 90471

== ENCOUNTER 2016-10-23 21:40 | Inpatient (IN) | payer OTHER ==
[~2016-10-23 21:40] MED LIST changes: -1-ME1LIQ OR; +APIX5TAB PO; -ASPI81TA11 OR; +ATOR40TA16 PO; +CARD120C4 PO; -CYCL1PAK PO; -GEMF600T PO; -IBUP800T23 PO; -LEVI20TA PO; -LIPI20TA PO; -LISI-360 PO; -METO25 PO; +METO25TA3 PO; +PRIL20TA2 PO; -PRIL40CA PO; -RANI150 PO; -VENTAER INH
[2016-10-23 22:15] VITALS: BP 136/76; PULSE 111; RESP 16; TEMP 98.2; O2SAT 95
[2016-10-23] MEDS ORDERED: DILTIAZEM INJ 125 MG in SODIUM CHLORIDE 0.9% INJ 100 ML IV SCH (22:30)
[2016-10-23] MEDS: DILTIAZEM HCL 25 MG/5 ML VIAL IV ONE ×2 (22:30→22:35)
--- NOTE | 2016-10-23 22:35 | PD ---
HPI Chief Complaint: palpitations Time Seen by Provider: 22:14 Travel History International Travel<30 days: No Contact w/Intl Traveler<30days: No Traveled to known affect area: No History of Present Illness HPI The patient states he is watching TV earlier tonight when he developed left- sided chest pain and palpitations. The patient monitors his heart rate, stated it was in the 130s and 140s, subsequently went to the fire department who transferred the patient to the emergency department. The patient has a recent diagnosis of atrial fibrillation in October 2016. The patient was seen in the hospital placed on metoprolol and Cartia, was subsequently discharged home with outpatient follow-up with his real estate intern, Dr. Young. However, the patient has not yet seen Dr. Young, has an appointment later this month. The patient has been taking the metoprolol and Cartia as directed. He did complain of some left-sided chest pain discomfort with his fluttering, mild shortness of breath, but denied any nausea, vomiting, or diaphoresis. The patient was prescribed Eliquis, however, has not taken it, states he would like to have a discussion with his real estate intern prior to taking any anticoagulation medications. The patient did take a baby aspirin earlier today and was provided aspirin by EMS, prior to arrival. The patient's primary physician is Dr. Dickens. [facility] Past Medical History Autoimmune Disease: No Blood Disorders: No Anxiety: Yes Depression: No Heart Rhythm Problems: Yes (Atrial Fib) Cancer: Yes (prostate) Cardiovascular Problems: Yes High Cholesterol: Yes Chemotherapy: No Chest Pain: Yes Congestive Heart Failure: No COPD: Yes Diminished Hearing: No Endocrine: No Gastrointestinal Disorders: Yes GERD: Yes Genitourinary: Yes Hepatitis: No Hiatal Hernia: No Hypertension: Yes Immune Disorder: No Musculoskeletal: No Neurologic: No Psychiatric: Yes Reproductive: No Respiratory: Yes Myocardial Infarction: No Radiation Therapy: Yes Sleep Apnea: No Ulcer: No Past Surgical History Abdominal Surgery: No AICD: No Appendectomy: No Arteriovenous Shunt: No Cardiac Surgery: No Cholecystectomy: No Ear Surgery: No Endocrine Surgery: No Eye Surgery: No Genitourinary Surgery: No Gynecologic Surgery: No Insulin Pump: No Joint Replacement: No Oral Surgery: Yes (Tonsillectomy) Pacemaker: No Thoracic Surgery: No Other Surgery: Yes Social History Alcohol Use: Yes (SOCIAL) Tobacco Use: Yes (1/2 PACK A DAY) Substance Use: No (just alcohol) Allergies-Medications (Allergen,Severity, Reaction): Coded Allergies: Monosodium Glutamate (Verified Allergy, Intermediate, Hives, 10/23/16) Reported Meds & Prescriptions Reported Meds & Active Scripts Active Eliquis (Apixaban) 5 Mg Tab 5 Mg PO BID Metoprolol Tartrate 25 Mg Tab 25 Mg PO Q12HR Ok to hold for heart rate at 50 or below Cardizem CD 24 HR (Diltiazem CD 24 HR) 120 Mg Caper 120 Mg PO DAILY Reported Aspirin 81 Mg Chew 81 Mg CHEW DAILY Hydrochlorothiazide 25 Mg Tab 25 Mg PO DAILY Lisinopril 10 Mg Tab 10 Mg PO DAILY Atorvastatin (Atorvastatin Calcium) 40 Mg Tab 40 Mg PO HS Review of Systems Except as stated in HPI: all other systems reviewed are Neg General / Constitutional: No: Fever HENT: No: Lightheadedness Cardiovascular: Positive: Chest Pain or Discomfort, Palpitations, Irregular Rhythm, Tachycardia, No: Diaphoresis Respiratory: Positive: Shortness of Breath Gastrointestinal: No: Nausea, Vomiting Neurologic: No: Dizziness Physical Exam Narrative GENERAL: Awake, alert, 66-year-old male who appears his stated age and is in no acute respiratory distress. SKIN: Focused skin assessment warm/dry. HEAD: Atraumatic. Normocephalic. EYES: Pupils equal and round. No scleral icterus. No injection or drainage. ENT: No nasal bleeding or discharge. Mucous membranes pink and moist. NECK: Trachea midline. No JVD. CARDIOVASCULAR: Irregularly irregular, heart rate in the 130s. RESPIRATORY: No accessory muscle use. Clear to auscultation. Breath sounds equal bilaterally. GASTROINTESTINAL: Abdomen soft, non-tender, nondistended. No rebound tenderness. MUSCULOSKELETAL: No obvious deformities. No clubbing. No cyanosis. No edema. NEUROLOGICAL: Awake and alert. No obvious cranial nerve deficits. Motor grossly within normal limits. Normal speech. Nonfocal. PSYCHIATRIC: Appropriate mood and affect; insight and judgment normal. Data Data Last Documented VS Vital Signs Date Time Temp Pulse Resp B/P Pulse Ox O2 Delivery O2 Flow Rate FiO2 10/23/16 22:46 96 Nasal Cannula 2 10/23/16 22:15 98.2 111 16 136/76 Orders Electrocardiogram (10/23/16 22:16) Ckmb (Isoenzyme) Profile (10/23/16 22:16) Complete Blood Count With Diff (10/23/16 22:16) Comprehensive Metabolic Panel (10/23/16 22:16) Magnesium (Mg) (10/23/16 22:16) Prothrombin Time / Inr (Pt) (10/23/16 22:16) Act Partial Throm Time (Ptt) (10/23/16 22:16) Troponin I (10/23/16 22:16) Chest, Single Ap (10/23/16 22:16) Ecg Monitoring (10/23/16 22:16) Bilateral Bp Monitoring (10/23/16 22:16) Iv Access Insert/Monitor (10/23/16 22:16) Oximetry (10/23/16 22:16) Oxygen Administration (10/23/16 22:16) Diltiazem Inj (Cardizem Inj) (10/23/16 22:30) Diltiazem Inj (Cardizem Inj) (10/23/16 22:30) Labs Laboratory Tests Test 10/23/16 22:25 White Blood Count 7.5 TH/MM3 Red Blood Count 4.87 MIL/MM3 Hemoglobin 16.2 GM/DL Hematocrit 46.2 % Mean Corpuscular Volume 95.0 FL Mean Corpuscular Hemoglobin 33.2 PG Mean Corpuscular Hemoglobin 34.9 % Concent Red Cell Distribution Width 12.4 % Platelet Count 217 TH/MM3 Mean Platelet Volume 7.6 FL Neutrophils (%) (Auto) 74.5 % Lymphocytes (%) (Auto) 16.5 % Monocytes (%) (Auto) 7.8 % Eosinophils (%) (Auto) 0.6 % Basophils (%) (Auto) 0.6 % Neutrophils # (Auto) 5.6 TH/MM3 Lymphocytes # (Auto) 1.2 TH/MM3 Monocytes # (Auto) 0.6 TH/MM3 Eosinophils # (Auto) 0.0 TH/MM3 Basophils # (Auto) 0.0 TH/MM3 CBC Comment DIFF FINAL Differential Comment Prothrombin Time 10.5 SEC Prothromb Time International 1.0 RATIO Ratio Activated Partial 24.4 SEC Thromboplast Time Sodium Level 138 MEQ/L Potassium Level 3.6 MEQ/L Chloride Level 104 MEQ/L Carbon Dioxide Level 25.6 MEQ/L Anion Gap 8 MEQ/L Blood Urea Nitrogen 21 MG/DL Creatinine 1.03 MG/DL Estimat Glomerular Filtration 73 ML/MIN Rate Random Glucose 109 MG/DL Calcium Level 8.4 MG/DL Magnesium Level 1.8 MG/DL Total Bilirubin 0.9 MG/DL Aspartate Amino Transf 20 U/L (AST/SGOT) Alanine Aminotransferase 41 U/L (ALT/SGPT) Alkaline Phosphatase 82 U/L Total Creatine Kinase 96 U/L Troponin I LESS THAN 0.02 NG/ML Total Protein 6.9 GM/DL Albumin 3.8 GM/DL MDM Medical Decision Making Medical Screen Exam Complete: Yes Emergency Medical Condition: Yes Medical Record Reviewed: Yes Interpretation(s) EKG reveals irregular irregular rhythm, A. fib with RVR, nonspecific T-wave changes. EKG #2 reveals normal sinus rhythm with a rate of 60. No ischemic changes or ectopy noted. Laboratory Tests Test 10/23/16 22:25 White Blood Count 7.5 TH/MM3 Red Blood Count 4.87 MIL/MM3 Hemoglobin 16.2 GM/DL Hematocrit 46.2 % Mean Corpuscular Volume 95.0 FL Mean Corpuscular Hemoglobin 33.2 PG Mean Corpuscular Hemoglobin 34.9 % Concent Red Cell Distribution Width 12.4 % Platelet Count 217 TH/MM3 Mean Platelet Volume 7.6 FL Neutrophils (%) (Auto) 74.5 % Lymphocytes (%) (Auto) 16.5 % Monocytes (%) (Auto) 7.8 % Eosinophils (%) (Auto) 0.6 % Basophils (%) (Auto) 0.6 % Neutrophils # (Auto) 5.6 TH/MM3 Lymphocytes # (Auto) 1.2 TH/MM3 Monocytes # (Auto) 0.6 TH/MM3 Eosinophils # (Auto) 0.0 TH/MM3 Basophils # (Auto) 0.0 TH/MM3 CBC Comment DIFF FINAL Differential Comment Prothrombin Time 10.5 SEC Prothromb Time International 1.0 RATIO Ratio Activated Partial 24.4 SEC Thromboplast Time Sodium Level 138 MEQ/L Potassium Level 3.6 MEQ/L Chloride Level 104 MEQ/L Carbon Dioxide Level 25.6 MEQ/L Anion Gap 8 MEQ/L Blood Urea Nitrogen 21 MG/DL Creatinine 1.03 MG/DL Estimat Glomerular Filtration 73 ML/MIN Rate Random Glucose 109 MG/DL Calcium Level 8.4 MG/DL Magnesium Level 1.8 MG/DL Total Bilirubin 0.9 MG/DL Aspartate Amino Transf 20 U/L (AST/SGOT) Alanine Aminotransferase 41 U/L (ALT/SGPT) Alkaline Phosphatase 82 U/L Total Creatine Kinase 96 U/L Troponin I LESS THAN 0.02 NG/ML Total Protein 6.9 GM/DL Albumin 3.8 GM/DL Differential Diagnosis Differential diagnosis includes atrial fibrillation with RVR, atrial flutter, tachyarrhythmia, electrolyte abnormality, hypokalemia, hypomagnesemia, acute coronary syndrome, congestive heart failure, pulmonary edema, pulmonary embolism , hyperthyroidism, noncompliance. Narrative Course IV was established, labs are drawn and sent, and the patient was placed on cardiac telemetry monitoring and continuous pulse oximetry monitoring. The patient received Cardizem 20 mg intravenously by EMS prior to arrival, his heart rate came down to 120s and 130s, the patient was placed on a Cardizem drip and his heart rate came down and very between the 80s and 120s. Chest x- ray was obtained. EKG was ordered and interpreted. Chest x-ray unremarkable. EKG revealed atrial fibrillation with RVR, rate approximately 110. Nonspecific T-wave changes. The patient states he recently had an echocardiogram and stress test performed, were unremarkable. The patient's echocardiogram revealed an ejection fraction of 55-60%. Nuclear medicine myocardial perfusion scan was unremarkable. The patient continued be somewhat tachycardic, will be admitted on a Cardizem drip. I discussed patient with Dr. Bernardo Hodgson who agrees with admission. Just after 11 PM the patient appeared to convert to normal sinus rhythm with a rate in the 60s, therefore, Cardizem drip was held, the patient will be kept on telemetry monitoring to evaluate if he goes back in A. fib with RVR or continues to stay in normal sinus rhythm. Physician Communication Physician Communication I discussed patient with Dr. Hodgson who agrees with admission. Diagnosis Primary Impression: Atrial fibrillation with RVR Admitting Information Admitting Physician Requests: Admit Condition: Stable Oziel Meyer MD Oct 23, 2016 22:35
--- NOTE | 2016-10-23 22:45 | RADRPT ---
EXAM DATE/TIME: 10/23/2016 22:36 [facility] COMPARISON: CHEST SINGLE AP, October 10, 2016, 0:45. INDICATIONS : Chest pain MEDICAL HISTORY : Cardiovascular disease. Hypertension SURGICAL HISTORY : None. ENCOUNTER: Initial ACUITY: 1 day PAIN SCORE: 5/10 LOCATION: Bilateral chest FINDINGS: A single view of the chest demonstrates the lungs to be symmetrically aerated without evidence of mas s, infiltrate or effusion. The cardiomediastinal contours are unremarkable. Osseous structures are intact. CONCLUSION: No acute disease. Aristeo Marti Jr., MD on October 23, 2016 at 22:43 Board Certified Radiologist. This report was verified electronically.
[2016-10-23 22:46] LABS: AUTOMATED NEUTROPHIL # 5.6 TH/MM3 (1.8-7.7); BASOPHIL % 0.6 % (0.0-2.0); EOSINOPHIL % 0.6 % (0.0-4.0); HEMATOCRIT 46.2 % (39.0-51.0); HEMO FLAGS DIFF FINAL; LYMPH % 16.5 % (9.0-44.0); LYMPHOCYTE # 1.2 TH/MM3 (1.0-4.8); MEAN CORPUSCULAR HEMOGLOBIN 33.2 PG (27.0-34.0); MEAN CORPUSCULAR HGB CONC 34.9 % (32.0-36.0); MONO % 7.8 % (0.0-8.0); NEUT % 74.5 % (16.0-70.0); PLATELET COUNT 217 TH/MM3 (150-450); RED BLOOD COUNT 4.87 MIL/MM3 (4.50-5.90); RED CELL DISTRIBUTION WIDTH 12.4 % (11.6-17.2); WHITE BLOOD COUNT 7.5 TH/MM3 (4.0-11.0)
[2016-10-23] MEDS ORDERED: LISI10TA3 PO (22:53)
[2016-10-23] MEDS ORDERED: HYDR25TA5 PO (22:53)
[2016-10-23] MEDS ORDERED: ASPI81CH CHEW (22:53)
[2016-10-23 23:03] LABS: APTT (PATIENT) 24.4 SEC (24.3-30.1); PROTHROMBIN TIME - PATIENT 10.5 SEC (9.8-11.6)
[2016-10-23 23:05] LABS: ALKALINE PHOSPHATASE 82 U/L (45-117); TOTAL BILIRUBIN ADULT 0.9 MG/DL (0.2-1.0)
[2016-10-23 23:06] LABS: CREATINE KINASE 96 U/L (39-308)
[2016-10-23 23:07] LABS: ALT (GPT) 41 U/L (12-78); ANION GAP 8 MEQ/L (5-15); AST (GOT) 20 U/L (15-37); BICARBONATE 25.6 MEQ/L (21.0-32.0); BLOOD UREA NITROGEN 21 MG/DL (7-18); CHLORIDE 104 MEQ/L (98-107); GLOMERULAR FILTRATION RATE 73 ML/MIN (>89); MAGNESIUM 1.8 MG/DL (1.5-2.5); POTASSIUM 3.6 MEQ/L (3.5-5.1); SODIUM (NA) 138 MEQ/L (136-145)
[2016-10-23] MEDS ORDERED: SODIUM CHLORIDE 0.9% FLUSH 10 ML FLUSH IV FLUSH PRN (23:15)
[2016-10-23] MEDS: APIXABAN 5 MG TABLET PO SCH (23:44)
[2016-10-24] VITALS (26 sets, daily range): BP systolic 106–141; BP diastolic 62–82; PULSE 44–58; RESP 14–20; TEMP 97.6–98.6; O2SAT 95–97
[2016-10-24] MEDS: SODIUM CHLORIDE 0.9% FLUSH 10 ML FLUSH IV FLUSH SCH ×2 (09:00→20:10)
[2016-10-24] MEDS: METOPROLOL TARTRATE 50 MG TAB PO SCH ×2 (09:28→20:10)
[2016-10-24] MEDS: APIXABAN 5 MG TABLET PO SCH ×2 (09:28→20:10)
[2016-10-24] MEDS: DILTIAZEM-CD 240 MG CAP ER PO SCH (09:28)
--- NOTE | 2016-10-24 11:32 | MB ---
cc: [facility] DATE OF CONSULTATION: 10/24/2016 REASON FOR CONSULTATION: Atrial fibrillation. HISTORY OF PRESENT ILLNESS The patient is a pleasant 66-year-old gentleman with a history of paroxysmal atrial fibrillation which was of relatively new diagnosis for him. He has been started on Eliquis and Cardizem / Metoprolol. The patient was doing well over the last 10 days or so until he experienced another bout of rapid palpitations and was found to be in rapid atrial fibrillation was given Cardizem and he converted to sinus rhythm. Currently the patient is asymptomatic denying any current chest pains though he did have some chest discomfort with his palpitations. He has had no lightheadedness or dizziness, syncope or shortness of breath. PAST MEDICAL HISTORY 1. Paroxysmal atrial fibrillation on Eliquis. 2. 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 3. Hyperlipidemia 4. Hypertensive with COPD. 5. Atypical chest pain. CURRENT MEDICATIONS 1. Lopressor 50 mg q. 12 2. Eliquis 5 mg b.i.d. Home medications for rate control included; 3. Lopressor 25 mg twice a day. 4. Cardizem CD 120 mg daily. ALLERGIES MSG PHYSICAL EXAMINATION IN GENERAL: Afebrile, VITAL SIGNS: Pulse 52, respiratory rate 180, BP 106/70 satting 95 room air. IN GENERAL: A very pleasant well-appearing gentleman in no distress. NECK: No JVD. LUNGS: Decreased breath sounds in all cook. CARDIOVASCULAR SYSTEM: Regular rate rhythm. No murmurs appreciated. ABDOMEN: The abdomen is benign. EXTREMITIES: No edema. RADIOLOGIC: Nuclear stress test from October 2016 showed no ischemia. Echocardiogram from October 17 showed normal left ventricular function with left ventricular hypertrophy. LABORATORY DATA Sodium 38,[id number], bicarb 25.6, BUN 21, creatinine 0.03, glucose 29, cardiac enzymes are negative x1. EKG initially showed a mildly rapid atrial fibrillation and now shows sinus rhythm. IMPRESSION 1. Paroxysmal atrial fibrillation. The patient has symptomatic paroxysmal atrial fibrillation and sinus bradycardia. This is somewhat difficult to control medically and I did recommend an ablation. He is considering whether he would like to remain in the hospital until Wednesday for the procedure. Potentially or whether he would like to be discharged home. I do think that it would be safe to discharge him home on a slightly increased oral regimen but does seem somewhat uncomfortable so I will leave that decision to him. I will increase his oral Cardizem 240 mg daily, he can tolerate these slower sinus heart rates. 2. Tobacco abuse, he is in early remission over the last couple of weeks. I have counseled at length for continued tobacco cessation. 3. Further recommendations based on his clinical course. He has needed be discharged home on his increased Cardizem and metoprolol and I would discontinue his lisinopril for now given somewhat low blood pressures currently. 4. I would also continues Eliquis. His other options are to remain in the hospital until deer farm worker can see him next week. Thank you for the opportunity to participate in this patients care. MD INDER Desouza/surendra /8:39 AM /11:26 AM
--- NOTE | 2016-10-24 11:45 | EKG ---
Date Performed: 10/23/2016 Time Performed: 22:03:52 PTAGE: 66 years EKG: ATRIAL FIBRILLATION WITH RAPID VENTRICULAR RESPONSE NONSPECIFIC ST & T-WAVE ABNORMALITY Sin ce previous tracing, no significant change noted ABNORMAL RHYTHM ECG PREVIOUS TRACING : 10/10/2016 04.55 DOCTOR: Nathan Young Interpretating Date/Time 10/24/2016 12:05:14
--- NOTE | 2016-10-24 12:07 | HHI.HP ---
HPI Service CP Hospitalists Primary Care Physician No Primary Care Physician Admission Diagnosis atrial fibrillation with RVR Chief Complaint: palpitations Travel History International Travel<30 Days: No Contact w/Intl Traveler <30 Da: No Traveled to Known Affected Are: No History of Present Illness Patient is a pleasant 66-year-old male with history of hypertension, tobacco use , COPD, and hyperlipidemia. Patient recently diagnosed with paroxysmal atrial fibrillation. Pt was hospitalized at [facility] 10/10 - 10/12/16 d/t [facility] with RVR. Patient was discharged on oral Cardizem, Lopressor, and Eliquis. Per patient he has been taking both the cardizem and the lopressor, but NOT yet taking the Eliquis. Patient presented to the ER complaints of palpitations. Patient found to be in atrial fibrillation with rapid ventricular response patient was given IV Cardizem with conversion to normal sinus rhythm. Patient denies chest pain, shortness breath, nausea vomiting, diaphoresis. - Patient with history of hospitalization in 2005 and 2006 with complaints of chest pain or palpitations - Lexiscan 06/17/2006 --> no acute findings - [facility] 01/[address] Bullard - The diagonal branches were noted to have a 30% to 40% stenosis proximally. - The first obtuse marginal branch artery mid segment noted to have a 40-50% stenosis. - The right coronary artery had a 30-40% stenosis of the mid segment. - EF was estimated at 60%. - Holter 06/2006 - NSR, runs of SVT with longest of 8 beats - Lexiscan 10/12/16 --> no reversible perfusion defects Pt is currently chest pain free. Pt denies palpitations. No dizziness. No SOB or n/v. Review of Systems Constitutional: DENIES: Diaphoretic episodes, Fatigue, Fever, Weight gain, Weight loss, Chills, Dizziness, Change in appetite, Night Sweats Endocrine: DENIES: Heat/cold intolerance, Polydipsia, Polyuria, Polyphagia Eyes: DENIES: Blurred vision, Diplopia, Eye inflammation, Eye pain, Vision loss , Photosensitivity, Double Vision Ears, nose, mouth, throat: DENIES: Tinnitus, Hearing loss, Vertigo, Nasal discharge, Oral lesions, Throat pain, Hoarseness, Ear Pain, Running Nose, Epistaxis, Sinus Pain, Toothache, Odynophagia Respiratory: DENIES: Apneas, Cough, Snoring, Wheezing, Hemoptysis, Sputum production, Shortness of breath Cardiovascular: COMPLAINS OF: Palpitations, DENIES: Chest pain, Syncope, Dyspnea on Exertion, PND, Lower Extremity Edema, Orthopnea, Claudication Gastrointestinal: DENIES: Abdominal pain, Black stools, Bloody stools, BRB per rectum, Constipation, Diarrhea, GERD, Nausea, Reflux, Vomiting, Difficulty Swallowing, Anorexia Genitourinary: DENIES: Urinary frequency, Urinary incontinence, Urgency, Hematuria, Dysuria, Nocturia Musculoskeletal: DENIES: Joint pain, Muscle aches, Stiffness, Joint Swelling, Back pain, Neck pain Integumentary: DENIES: Abnormal pigmentation, Nail changes, Pruritus, Rash Hematologic/lymphatic: DENIES: Bruising, Lymphadenopathy Immunologic/allergic: DENIES: Eczema, Urticaria Neurologic: DENIES: Abnormal gait, Headache, Localized weakness, Paresthesias, Seizures, Speech Problems, Tremor, Poor Balance Psychiatric: COMPLAINS OF: Anxiety, DENIES: Confusion, Mood changes, Depression, Hallucinations, Agitation, Suicidal Ideation, Homicidal Ideation, Delusions, History of Bipolar, History of Schizophrenia Past Family Social History Past Medical History 1) paroxysmal atrial fibrillation - Recent [facility] hospitalization 10/10 through 10/12/16 2) hypertension 3) hyperlipidemia 4) GERD 5) erectile dysfunction 6) history of prostate cancer, received radiation therapy 7) tobacco use Past Surgical History Repair of left ankle fracture following orthopedic injuries secondary to a fall Reported Medications Reported Meds & Active Scripts Active Eliquis (Apixaban) 5 Mg Tab 5 Mg PO BID Metoprolol Tartrate 25 Mg Tab 25 Mg PO Q12HR Ok to hold for heart rate at 50 or below Cardizem CD 24 HR (Diltiazem CD 24 HR) 120 Mg Caper 120 Mg PO DAILY Reported Aspirin 81 Mg Chew 81 Mg CHEW DAILY Hydrochlorothiazide 25 Mg Tab 25 Mg PO DAILY Lisinopril 10 Mg Tab 10 Mg PO DAILY Atorvastatin (Atorvastatin Calcium) 40 Mg Tab 40 Mg PO HS Allergies: Coded Allergies: Monosodium Glutamate (Verified Allergy, Intermediate, Hives, 10/23/16) Family History - Mother secondary to cancer, possibly lung cancer - Father age 78, possibly due to unspecified liver disease - Patient has 2 brothers and 2 sisters, some of whom have hypertension Social History - Patient is originally from [place], [place] - Patient is retired - - 2 grown children, but they do not live locally - Tobacco: Patient has smoked one pack per day for the last 45 years - Alcohol: 2 beers per day, patient denies any history of alcohol withdrawal - No illicit street drugs Physical Exam Vital Signs Vital Signs Date Time Temp Pulse Resp B/P Pulse Ox O2 Delivery O2 Flow Rate FiO2 10/24/16 06:00 52 10/24/16 05:00 52 10/24/16 04:00 52 10/24/16 04:00 97.6 58 18 106/70 95 10/24/16 03:00 55 10/24/16 02:00 50 10/24/16 01:00 54 10/24/16 00:30 97.7 57 14 111/74 96 10/23/16 22:46 96 Nasal Cannula 2 10/23/16 22:15 98.2 111 16 136/76 95 Physical Exam GENERAL: This is a well-nourished, well-developed patient, in no apparent distress. SKIN: No rashes, ecchymoses or lesions. Cool and dry. HEAD: Atraumatic. Normocephalic. No temporal or scalp tenderness. EYES: Pupils equal round and reactive. Extraocular motions intact. No scleral icterus. No injection or drainage. ENT: Nose without bleeding, purulent drainage or septal hematoma. Throat without erythema, tonsillar hypertrophy or exudate. Uvula midline. Airway patent. NECK: Trachea midline. No JVD or lymphadenopathy. Supple, nontender, no meningeal signs. CARDIOVASCULAR: Regular rate and rhythm without murmurs, gallops, or rubs. RESPIRATORY: Clear to auscultation. Breath sounds equal bilaterally. No wheezes , rales, or rhonchi. GASTROINTESTINAL: Abdomen soft, non-tender, nondistended. No hepato-splenomegaly , or palpable masses. No guarding. MUSCULOSKELETAL: Extremities without clubbing, cyanosis, or edema. No joint tenderness, effusion, or edema noted. No calf tenderness. Negative Homans sign bilaterally. NEUROLOGICAL: Awake and alert. Cranial nerves II through XII intact. Motor and sensory grossly within normal limits. Five out of 5 muscle strength in all muscle groups. Normal speech. Laboratory Laboratory Tests Test 10/23/16 22:25 White Blood Count 7.5 Red Blood Count 4.87 Hemoglobin 16.2 Hematocrit 46.2 Mean Corpuscular Volume 95.0 Mean Corpuscular Hemoglobin 33.2 Mean Corpuscular Hemoglobin 34.9 Concent Red Cell Distribution Width 12.4 Platelet Count 217 Mean Platelet Volume 7.6 Neutrophils (%) (Auto) 74.5 Lymphocytes (%) (Auto) 16.5 Monocytes (%) (Auto) 7.8 Eosinophils (%) (Auto) 0.6 Basophils (%) (Auto) 0.6 Neutrophils # (Auto) 5.6 Lymphocytes # (Auto) 1.2 Monocytes # (Auto) 0.6 Eosinophils # (Auto) 0.0 Basophils # (Auto) 0.0 CBC Comment DIFF FINAL Differential Comment Prothrombin Time 10.5 Prothromb Time International 1.0 Ratio Activated Partial 24.4 Thromboplast Time Sodium Level 138 Potassium Level 3.6 Chloride Level 104 Carbon Dioxide Level 25.6 Anion Gap 8 Blood Urea Nitrogen 21 Creatinine 1.03 Estimat Glomerular Filtration 73 Rate Random Glucose 109 Calcium Level 8.4 Magnesium Level 1.8 Total Bilirubin 0.9 Aspartate Amino Transf 20 (AST/SGOT) Alanine Aminotransferase 41 (ALT/SGPT) Alkaline Phosphatase 82 Total Creatine Kinase 96 Troponin I LESS THAN 0.02 Total Protein 6.9 Albumin 3.8 Result Diagram: 10/23/16222410/23/162224 Imaging Last Impressions Chest X-Ray 10/23/162215 Signed Impressions: Service Date/Time: Sunday, October 23, 2016 22:36 - CONCLUSION: No acute disease. Aristeo Marti Jr., MD Septic Shock Reassessment Heart: Regular rate and rhythm Lungs: Clear Skin: Warm Peripheral Pulses: Bounding Right Radial Bounding Left Radial Bounding Right Popliteal Bounding Left Popliteal Bounding Right Dorsalis Pedis Bounding Left Dorsalis Pedis Bounding Right Posterior Tibial Bounding Left Posterior Tibial Capillary Refill: Brisk Assessment and Plan Problem List: (1) Atrial fibrillation with RVR Status: Acute Plan: - Recent, similar hospitalization 10/10- 10/12/16 - Comanagement with cardiology, appreciate input from Dr. Crespo - Cardizem increased to 240 mg daily - Metoprolol 50 mg BID - Some bradycardia which cardiology feels it is okay for now - Patient recommended to have evaluation by electrophysiology and possible EPS study with ablation - Continue Eliquis (2) Hypertension Status: Chronic Plan: - Stable - Cardizem, metoprolol - Lisinopril stopped (3) GERD (gastroesophageal reflux disease) Status: Acute Plan: - Continue PPI (4) Hyperlipidemia Status: Chronic Plan: - Continue Lipitor (5) Tobacco abuse Status: Chronic Plan: - Patient reports no smoking since earlier hospitalization in October (6) History of prostate cancer Status: Acute Physician Certification 2 Midnight Certification Type: Admission for Inpatient Services Order for Inpatient Services The services are ordered in accordance with Medicare regulations or non- Medicare payer requirements, as applicable. In the case of services not specified as inpatient-only, they are appropriately provided as inpatient services in accordance with the 2-midnight benchmark. Estimated LOS (days): 3 3 days is the estimated time the patient will need to remain in the hospital, assuming treatment plan goals are met and no additional complications. Post-Hospital Plan: Home Problem Qualifiers (1) Hypertension: Qualified Code: I10 - Essential hypertension (2) GERD (gastroesophageal reflux disease): Qualified Code: K21.9 - Gastroesophageal reflux disease, esophagitis presence not specified Jaylen Menjivar DO Oct 24, 2016 12:07
--- NOTE | 2016-10-24 12:08 | EKG ---
Date Performed: 10/23/2016 Time Performed: 23:02:45 PTAGE: 66 years EKG: Sinus rhythm Compared to previous tracing, sinus rhythm has replaced atrial fibrillation. NORMAL ECG PREVIOUS TRACING : 10/23/2016 22.03 DOCTOR: Nathan Young Interpretating Date/Time 10/24/2016 12:07:35
[2016-10-25] VITALS (27 sets, daily range): BP systolic 115–131; BP diastolic 68–78; PULSE 42–58; RESP 16–19; TEMP 97.5–98.3; O2SAT 95–96
[2016-10-25] MEDS: APIXABAN 5 MG TABLET PO SCH ×2 (08:41→21:08)
[2016-10-25] MEDS: DILTIAZEM-CD 240 MG CAP ER PO SCH (08:41)
[2016-10-25] MEDS: SODIUM CHLORIDE 0.9% FLUSH 10 ML FLUSH IV FLUSH SCH ×2 (08:41→21:08)
[2016-10-25] MEDS: METOPROLOL TARTRATE 50 MG TAB PO SCH (09:00)
--- NOTE | 2016-10-25 09:35 | HHI.PR ---
Subjective Remarks No new complaints. Pt denies chest pain, palpitations, or dizziness. Objective Vitals Vital Signs Date Time Temp Pulse Resp B/P Pulse Ox O2 Delivery O2 Flow Rate FiO2 10/25/16 06:00 44 10/25/16 05:00 46 10/25/16 04:00 56 10/25/16 03:00 42 10/25/16 03:00 97.5 49 16 116/68 95 10/25/16 02:00 42 10/25/16 01:00 42 10/25/16 00:00 44 10/24/16 23:00 98.4 44 14 114/70 97 10/24/16 23:00 46 10/24/16 22:00 46 10/24/16 21:00 54 10/24/16 20:00 47 10/24/16 19:00 50 10/24/16 19:00 98.6 52 20 113/62 95 10/24/16 18:14 52 10/24/16 17:00 50 10/24/16 16:00 52 10/24/16 15:45 97.7 49 16 121/72 96 10/24/16 15:00 48 10/24/16 14:01 47 10/24/16 13:05 52 10/24/16 12:16 54 10/24/16 11:30 97.7 54 16 127/73 97 10/24/16 11:00 53 10/24/16 10:00 54 10/24/16 10/24/16 10/25/16 15:00 23:00 07:00 Intake Total 1220 ml 480 ml Balance 1220 ml 480 ml Intake Oral 1220 ml 480 ml # Voids 5 3 # Bowel Movements 2 Result Diagram: 10/23/16222410/23/162224 Imaging Last Impressions Chest X-Ray 10/23/162215 Signed Impressions: Service Date/Time: Sunday, October 23, 2016 22:36 - CONCLUSION: No acute disease. Aristeo Marti Jr., MD Objective Remarks GENERAL: This is a well-nourished, well-developed patient, in no apparent distress. CARDIOVASCULAR: Regular rate and rhythm without murmurs, gallops, or rubs. RESPIRATORY: Clear to auscultation. Breath sounds equal bilaterally. No wheezes , rales, or rhonchi. GASTROINTESTINAL: Abdomen soft, non-tender, nondistended. Normal active bowel sounds MUSCULOSKELETAL: Extremities without clubbing, cyanosis, or edema. NEURO: Alert & Oriented x4 to person, place, time, situation. Moves all ext x4 A/P Problem List: (1) Atrial fibrillation with RVR Status: Acute Plan: - Recent, similar hospitalization 10/10- 10/12/16 - Comanagement with cardiology, appreciate input from Dr. Crespo - Cardizem increased to 240 mg daily - Some bradycardia which cardiology feels it is okay for now - Patient recommended to have evaluation by electrophysiology and possible EPS study with ablation - Continue Eliquis - Pt became bradycardic overnight with HR at times dropping into the upper 30s - NO c/o dizziness - stop metoprolol - await [facility] Cardiology Wednesday - consult Dr. Diamond in AM Wednesday (2) Hypertension Status: Chronic Plan: - Stable - Cardizem, metoprolol - Lisinopril stopped (3) GERD (gastroesophageal reflux disease) Status: Acute Plan: - Continue PPI (4) Hyperlipidemia Status: Chronic Plan: - Continue Lipitor (5) Tobacco abuse Status: Chronic Plan: - Patient reports no smoking since earlier hospitalization in October (6) History of prostate cancer Status: Acute Problem Qualifiers (1) Hypertension: Qualified Code: I10 - Essential hypertension (2) GERD (gastroesophageal reflux disease): Qualified Code: K21.9 - Gastroesophageal reflux disease, esophagitis presence not specified Jaylen Menjivar DO Oct 25, 2016 09:35
[2016-10-26] VITALS (13 sets, daily range): BP systolic 123–131; BP diastolic 74–78; PULSE 44–62; RESP 18–20; TEMP 97.7–98; O2SAT 95–98
[2016-10-26 07:33] LABS: BICARBONATE 27.8 MEQ/L (21.0-32.0); MAGNESIUM 2.2 MG/DL (1.5-2.5); POTASSIUM 4.3 MEQ/L (3.5-5.1)
--- NOTE | 2016-10-26 08:17 | HHI.PR ---
Subjective Remarks feels ok no dizziness Objective Vitals heart irreg lung cta abd s/nt ext no edema Vital Signs Date Time Temp Pulse Resp B/P Pulse Ox O2 Delivery O2 Flow Rate FiO2 10/26/16 07:00 97.7 53 20 131/78 98 10/26/16 07:00 58 10/26/16 06:00 46 10/26/16 04:00 44 10/26/16 03:00 98.0 49 18 124/76 95 10/26/16 02:00 46 10/26/16 01:00 56 10/26/16 00:00 53 10/25/16 23:00 44 10/25/16 23:00 98.3 48 18 127/76 96 10/25/16 22:00 50 10/25/16 21:00 48 10/25/16 20:00 54 10/25/16 19:00 98.3 54 18 127/76 96 10/25/16 19:00 50 10/25/16 18:15 51 10/25/16 17:09 46 10/25/16 16:47 58 10/25/16 15:10 98.0 50 16 123/74 96 10/25/16 15:00 49 10/25/16 14:00 56 10/25/16 13:00 56 10/25/16 12:10 53 10/25/16 11:21 97.8 51 19 115/69 96 10/25/16 11:00 48 10/25/16 10:00 54 10/25/16 09:00 46 10/25/16 10/25/16 10/26/16 15:00 23:00 07:00 Intake Total 480 ml 480 ml Output Total 600 ml Balance -120 ml 480 ml Intake Oral 480 ml 480 ml Output Urine Total 600 ml # Voids 3 # Bowel Movements 2 Result Diagram: 10/23/16222410/26/16 0636 Imaging Last Impressions Chest X-Ray 10/23/162215 Signed Impressions: Service Date/Time: Sunday, October 23, 2016 22:36 - CONCLUSION: No acute disease. Aristeo Marti Jr., MD A/P Problem List: (1) Atrial fibrillation with RVR Status: Acute Plan: - Recent, similar hospitalization 10/10- 10/12/16 - Cardizem increased to 240 mg daily and metoprolol was stopped - Patient recommended to have evaluation by electrophysiology and possible EPS study with ablation per cardiology over the weekend due to bradycardia issues with medications - Continue Eliquis consult Dr Diamond per cardiology reccs to consider for ablation cont current medications today. (2) Hypertension Status: Chronic Plan: stop hctz/lisinipril (3) GERD (gastroesophageal reflux disease) Status: Acute Plan: - Continue PPI (4) Hyperlipidemia Status: Chronic Plan: - Continue Lipitor (5) Tobacco abuse Status: Chronic Plan: - Patient reports no smoking since earlier hospitalization in October (6) History of prostate cancer Status: Resolved Problem Qualifiers (1) Hypertension: Qualified Code: I10 - Essential hypertension (2) GERD (gastroesophageal reflux disease): Qualified Code: K21.9 - Gastroesophageal reflux disease, esophagitis presence not specified Moises Mcdaniel MD Oct 26, 2016 08:17
[2016-10-26] MEDS: DILTIAZEM-CD 240 MG CAP ER PO SCH (09:11)
[2016-10-26] MEDS: SODIUM CHLORIDE 0.9% FLUSH 10 ML FLUSH IV FLUSH SCH (09:11)
[2016-10-26] MEDS: APIXABAN 5 MG TABLET PO SCH (09:11)
--- NOTE | 2016-10-26 11:03 | MB ---
cc: STEPHANIE WILSON M.D. DATE OF CONSULTATION: 10/26/2016 REASON FOR CONSULTATION Atrial fibrillation with biventricular response. HISTORY OF PRESENT ILLNESS Mr. Carrasco is a 66-year-old gentleman with history of high blood pressure, hyperlipidemia, atypical chest pain, recent nuclear stress test was negative. The patient used to smoke a pack of cigarettes a day, just stopped a couple of weeks ago. He was admitted through the emergency room due to atrial fibrillation with biventricular response. During hospitalization heart rate was controlled, the patient came back into sinus rhythm. I was consulted for evaluation and management. The chart was reviewed, the patient was evaluated. ALLERGIES MONOSODIUM GLUCOMATE. SOCIAL HISTORY As mentioned before the gentleman is positive for smoking and just stopped a couple of weeks ago. FAMILY HISTORY Noncontributory to his current medical condition. MEDICATIONS The patient currently is on Eliquis 5 mg twice a day. Cardizem CD 240 mg a day. REVIEW OF SYSTEMS The patient refers no chest pain, no chest discomfort. On and off palpitation in the past but no vomiting, no fever. PHYSICAL EXAMINATION GENERAL: Alert, fully oriented. VITAL SIGNS: Blood pressure 124/76, pulse around 56, respiratory rate 18. LUNGS: Ventilated. CARDIOVASCULAR: S1-S2, no gallop or murmur. ABDOMEN: Soft. No mass. No bruit. EXTREMITIES: No edema. ELECTROCARDIOGRAM On hospitalization showed atrial fibrillation, diffuse ST changes. Current electrocardiogram done on the at 11:02 p.m. indicates sinus rhythm, no acute ST and T-wave changes. LABORATORY DATA Hemoglobin 16.2, white blood cell 7.5, potassium 4.3, creatinine 0.90, troponin less than 0.02. INR 1.0. ASSESSMENT AND RECOMMENDATIONS Mr. Carrasco currently is in sinus rhythm. His last nuclear stress study was negative for ischemia. He has a normal ejection fraction. He is back in sinus rhythm. He is on Cardizem as well as Eliquis. The gentleman was in the hospital on October 10 and atrial fibrillation resolved. Most likely he is having on and off episode of atrial fibrillation. My recommendation at this point is continue on Cardizem. Anticoagulation for 3 weeks and readmit the patient for ablation. I did explain to Mr. Carrasco if his atrial fibrillation unable to control, then I will proceed with ablation, otherwise to decrease the risks of stroke and thromboembolism he needs to be anticoagulated for at least 3 weeks. The case was extensively discussed with him. He can be discharged home, he is going to be admitted on November 16 in the afternoon for EP and atrial fibrillation ablation. MD ALEN Hurley/TLL /9:31 AM /10:55 AM
[2016-10-26] MEDS ORDERED: CARD240C6 PO (13:58)
--- NOTE | 2016-10-26 13:59 | HHI.DCPOC ---
Discharge Care Plan Diagnosis: (1) Atrial fibrillation with RVR Goals to Promote Your Health * To prevent worsening of your condition and complications * To maintain your health at the optimal level Directions to Meet Your Goals Take your medications as prescribed Follow your dietary instruction Follow activity as directed Keep your appointments as scheduled Take your immunizations and boosters as scheduled If your symptoms worsen call your PCP, if no PCP go to Urgent Care Center or Emergency Room Smoking is Dangerous to Your Health. Avoid second hand smoke Call the 24-hour hour crisis hotline for domestic abuse at Moises Mcdaniel MD Oct 26, 2016 13:59
== END 2016-10-26 14:45 | disposition home or self-care (01) | DRG 310 ==
LOC: NEPE 21:40 → NEDA 23:12 → HCIS 10-24 00:08 → OBSVTOIN 10-25 09:37
PROVIDERS: ADMIT Hospitalist; ATTEND Hospitalist
DX: I48.0 Paroxysmal atrial fibrillation (principal); J44.9 Chronic obstructive pulmonary disease, unspecified; I10 Essential (primary) hypertension; F41.9 Anxiety disorder, unspecified; K21.9 Gastro-esophageal reflux disease without esophagitis; E78.5 Hyperlipidemia, unspecified; R07.9 Chest pain, unspecified; R00.1 Bradycardia, unspecified; Z92.3 Personal history of irradiation; Z85.46 Personal history of malignant neoplasm of prostate; Z79.82 Long term (current) use of aspirin; Z87.891 Personal history of nicotine dependence
CPT/HCPCS: 71010; 80048; 80053; 82550; 83735; 84484; 85025; 85610; 85730; 93005

== ENCOUNTER 2016-11-02 18:52 | Inpatient (IN) | payer OTHER ==
[~2016-11-02] VITALS: Ht 172.7 cm; Wt 75.5 kg
[~2016-11-02 18:52] MED LIST changes: -CARD120C4 PO; +CARD240C6 PO; -METO25TA3 PO; -PRIL20TA2 PO
[2016-11-02 19:10] VITALS: BP 181/74; PULSE 116; RESP 16; TEMP 98.1; O2SAT 96
[2016-11-02 19:12] VITALS: RESP 16; O2SAT 96
[2016-11-02] MEDS ORDERED: SODIUM CHLORIDE 0.9% FLUSH 10 ML FLUSH IVF PRN (19:15)
[2016-11-02] MEDS ORDERED: DILTIAZEM HCL 25 MG/5 ML VIAL IV ONE (19:15)
--- NOTE | 2016-11-02 19:16 | PD ---
HPI Chief Complaint: Cardiac Complaint Time Seen by Provider: 19:09 Travel History International Travel<30 days: No Contact w/Intl Traveler<30days: No Traveled to known affect area: No History of Present Illness HPI 66-year-old male recently diagnosed with atrial fibrillation, here for the third time for A. fib with RVR. The patient was at his friend's warehouse today when he began to experience palpitations. He is scheduled to have an ablation with production estimator Dr. Diamond. He reports compliance with his Cardizem 240 mg daily. He is also on Eliquis. He denies chest pain or dyspnea. No lightheadedness. No fevers or recent illness. He was given 20 mg of IV Cardizem by EMS prior to arrival for a heart rate of 170. He quit smoking cigarettes 3 weeks ago. He denies alcohol or illicit drug use. PFSH Past Medical History Atrial Fibrillation: Yes Autoimmune Disease: No Blood Disorders: No Anxiety: Yes Depression: No Heart Rhythm Problems: Yes (Atrial Fib) Cancer: Yes (prostate) Cardiovascular Problems: Yes High Cholesterol: Yes Chemotherapy: No Chest Pain: Yes Congestive Heart Failure: No COPD: Yes Diminished Hearing: No Endocrine: No Gastrointestinal Disorders: Yes GERD: Yes Genitourinary: Yes Hepatitis: No Hiatal Hernia: No Hypertension: Yes Immune Disorder: No Musculoskeletal: No Neurologic: No Psychiatric: Yes Reproductive: No Respiratory: Yes Immunizations Current: Yes Myocardial Infarction: No Radiation Therapy: Yes Sleep Apnea: No Ulcer: No Past Surgical History Abdominal Surgery: No AICD: No Appendectomy: No Arteriovenous Shunt: No Cardiac Surgery: No Cholecystectomy: No Ear Surgery: No Endocrine Surgery: No Eye Surgery: No Genitourinary Surgery: No Gynecologic Surgery: No Insulin Pump: No Joint Replacement: No Oral Surgery: Yes (Tonsillectomy) Pacemaker: No Thoracic Surgery: No Other Surgery: Yes Social History Alcohol Use: Yes (SOCIAL) Tobacco Use: No (QUIT EARLY OCTOBER 2016) Substance Use: No (just alcohol) Allergies-Medications (Allergen,Severity, Reaction): Coded Allergies: Monosodium Glutamate (Verified Allergy, Intermediate, Hives, 11/02/16) Reported Meds & Prescriptions Reported Meds & Active Scripts Active Cardizem CD 24 HR (Diltiazem CD 24 HR) 240 Mg Caper 240 Mg PO DAILY Eliquis (Apixaban) 5 Mg Tab 5 Mg PO BID Reported Atorvastatin (Atorvastatin Calcium) 40 Mg Tab 40 Mg PO HS Review of Systems Except as stated in HPI: all other systems reviewed are Neg Physical Exam Narrative GENERAL: Well-developed, well-nourished, awake, alert, comfortable, no acute distress. SKIN: Focused skin assessment warm/dry. HEAD: Atraumatic. Normocephalic. EYES: Pupils equal and round. No scleral icterus. No injection or drainage. ENT: No nasal bleeding or discharge. Mucous membranes pink and moist. NECK: Trachea midline. No JVD. CARDIOVASCULAR: Tachycardic, irregularly irregular, rate 120. RESPIRATORY: No accessory muscle use. Clear to auscultation. Breath sounds equal bilaterally. GASTROINTESTINAL: Abdomen soft, non-tender, nondistended. MUSCULOSKELETAL: No obvious deformities. No clubbing. No cyanosis. No edema. NEUROLOGICAL: Awake and alert. No obvious cranial nerve deficits. Motor grossly within normal limits. Normal speech. PSYCHIATRIC: Appropriate mood and affect; insight and judgment normal. Data Data Last Documented VS Vital Signs Date Time Temp Pulse Resp B/P Pulse Ox O2 Delivery O2 Flow Rate FiO2 11/02/16 19:48 106 16 143/77 97 Room Air 11/02/16 19:10 98.1 Orders Basic Metabolic Panel (Bmp) (11/02/16 19:09) Ckmb (Isoenzyme) Profile (11/02/16 19:09) Complete Blood Count With Diff (11/02/16 19:09) Magnesium (Mg) (11/02/16 19:09) Prothrombin Time / Inr (Pt) (11/02/16 19:09) Act Partial Throm Time (Ptt) (11/02/16 19:09) Troponin I (11/02/16 19:09) Ecg Monitoring (11/02/16 19:09) Iv Access Insert/Monitor (11/02/16 19:09) Oximetry (11/02/16 19:09) Sodium Chloride 0.9% Flush (Ns Flush) (11/02/16 19:15) Diltiazem Inj (Cardizem Inj) (11/02/16 19:15) Labs Laboratory Tests Test 11/02/16 19:20 White Blood Count 5.8 TH/MM3 Red Blood Count 4.68 MIL/MM3 Hemoglobin 15.8 GM/DL Hematocrit 44.2 % Mean Corpuscular Volume 94.5 FL Mean Corpuscular Hemoglobin 33.8 PG Mean Corpuscular Hemoglobin 35.8 % Concent Red Cell Distribution Width 12.2 % Platelet Count 215 TH/MM3 Mean Platelet Volume 8.2 FL Neutrophils (%) (Auto) 61.7 % Lymphocytes (%) (Auto) 28.2 % Monocytes (%) (Auto) 7.9 % Eosinophils (%) (Auto) 1.3 % Basophils (%) (Auto) 0.9 % Neutrophils # (Auto) 3.6 TH/MM3 Lymphocytes # (Auto) 1.6 TH/MM3 Monocytes # (Auto) 0.5 TH/MM3 Eosinophils # (Auto) 0.1 TH/MM3 Basophils # (Auto) 0.1 TH/MM3 CBC Comment DIFF FINAL Differential Comment Prothrombin Time 10.8 SEC Prothromb Time International 1.0 RATIO Ratio Activated Partial 27.8 SEC Thromboplast Time Carbon Dioxide Level 22.8 MEQ/L Blood Urea Nitrogen 16 MG/DL Creatinine 0.99 MG/DL Estimat Glomerular Filtration 76 ML/MIN Rate Random Glucose 96 MG/DL Calcium Level 9.3 MG/DL Magnesium Level 1.6 MG/DL [facility] Medical Decision Making Medical Screen Exam Complete: Yes Emergency Medical Condition: Yes Medical Record Reviewed: Yes Differential Diagnosis A. fib with RVR, metabolic abnormality, ACS Narrative Course Patient's initial heart rate was 120s, A. fib. He was already given 20 mg of IV Cardizem by EMS for heart rate of 170. He was given another 10 mg by me. Heart rate improved, however is irregular with a rate between 90 and 115. Case discussed with [facility] physician Dr. Menjivar. He will start the patient on a Cardizem drip and will admit the patient to his service to the [facility]. Diagnosis Primary Impression: Atrial fibrillation with RVR Admitting Information Admitting Physician Requests: Admit Salvador Sawyer MD Nov 02, 2016 19:16
[2016-11-02 19:45] LABS: AUTOMATED NEUTROPHIL # 3.6 TH/MM3 (1.8-7.7); BASOPHIL # 0.1 TH/MM3 (0-0.2); BASOPHIL % 0.9 % (0.0-2.0); EOSINOPHIL # 0.1 TH/MM3 (0-0.4); EOSINOPHIL % 1.3 % (0.0-4.0); HEMATOCRIT 44.2 % (39.0-51.0); HEMO FLAGS DIFF FINAL; LYMPH % 28.2 % (9.0-44.0); LYMPHOCYTE # 1.6 TH/MM3 (1.0-4.8); MEAN CELL VOLUME 94.5 FL (80.0-100.0); MEAN CORPUSCULAR HEMOGLOBIN 33.8 PG (27.0-34.0); MEAN CORPUSCULAR HGB CONC 35.8 % (32.0-36.0); MONO % 7.9 % (0.0-8.0); NEUT % 61.7 % (16.0-70.0); PLATELET COUNT 215 TH/MM3 (150-450); RED BLOOD COUNT 4.68 MIL/MM3 (4.50-5.90); RED CELL DISTRIBUTION WIDTH 12.2 % (11.6-17.2); WHITE BLOOD COUNT 5.8 TH/MM3 (4.0-11.0)
[2016-11-02 19:48] VITALS: BP 143/77; PULSE 106; RESP 16; O2SAT 97
[2016-11-02 19:56] LABS: APTT (PATIENT) 27.8 SEC (24.3-30.1); BICARBONATE 22.8 MEQ/L (21.0-32.0); BLOOD UREA NITROGEN 16 MG/DL (7-18); GLOMERULAR FILTRATION RATE 76 ML/MIN (>89); MAGNESIUM 1.6 MG/DL (1.5-2.5); PROTHROMBIN TIME - PATIENT 10.8 SEC (9.8-11.6)
[2016-11-02 20:25] LABS: ANION GAP 11 MEQ/L (5-15); CHLORIDE 101 MEQ/L (98-107); POTASSIUM 3.5 MEQ/L (3.5-5.1); SODIUM (NA) 135 MEQ/L (136-145)
[2016-11-02] MEDS ORDERED: MAGNESIUM HYDROXIDE SUSP 30 ML CUP PO PRN (20:30)
[2016-11-02] MEDS ORDERED: TEMAZEPAM 15 MG CAP PO PRN (20:30)
[2016-11-02] MEDS ORDERED: ONDANSETRON HCL 4 MG/2 ML VIAL IVP PRN (20:30)
[2016-11-02] MEDS ORDERED: NALOXONE HCL 0.4 MG/ML AMP IV PRN (20:30)
[2016-11-02] MEDS ORDERED: SODIUM CHLORIDE 0.9% FLUSH 10 ML FLUSH IV FLUSH PRN (20:30)
[2016-11-02 20:32] LABS: CREATINE KINASE 85 U/L (39-308)
[2016-11-02] MEDS ORDERED: DILTIAZEM INJ 125 MG in SODIUM CHLORIDE 0.9% INJ 100 ML IV SCH (21:00)
[2016-11-02] MEDS: APIXABAN 5 MG TABLET PO SCH (21:53)
[2016-11-02] MEDS: SODIUM CHLORIDE 0.9% FLUSH 10 ML FLUSH IV FLUSH SCH (21:53)
[2016-11-02] MEDS: ATORVASTATIN 40 MG TAB PO SCH (21:53)
[2016-11-02 22:05] VITALS: BP 125/96; PULSE 104; RESP 16; TEMP 98.2; O2SAT 96
[2016-11-02 22:10] VITALS: PULSE 93
[2016-11-02 23:00] VITALS: PULSE 85
[2016-11-03] VITALS (25 sets, daily range): BP systolic 91–129; BP diastolic 62–85; PULSE 48–96; RESP 16–18; TEMP 97.3–98.5; O2SAT 95–97
[2016-11-03] MEDS ORDERED: DILTIAZEM INJ 125 MG in SODIUM CHLORIDE 0.9% INJ 100 ML IV PRN (00:45)
[2016-11-03 04:37] LABS: AUTOMATED NEUTROPHIL # 3.1 TH/MM3 (1.8-7.7); BASOPHIL % 0.5 % (0.0-2.0); EOSINOPHIL # 0.1 TH/MM3 (0-0.4); EOSINOPHIL % 1.6 % (0.0-4.0); HEMATOCRIT 42.4 % (39.0-51.0); HEMO FLAGS DIFF FINAL; LYMPH % 32.4 % (9.0-44.0); LYMPHOCYTE # 1.9 TH/MM3 (1.0-4.8); MEAN CELL VOLUME 94.6 FL (80.0-100.0); MEAN CORPUSCULAR HEMOGLOBIN 33.7 PG (27.0-34.0); MEAN CORPUSCULAR HGB CONC 35.7 % (32.0-36.0); MONO % 10.6 % (0.0-8.0); NEUT % 54.9 % (16.0-70.0); PLATELET COUNT 221 TH/MM3 (150-450); RED BLOOD COUNT 4.48 MIL/MM3 (4.50-5.90); RED CELL DISTRIBUTION WIDTH 12.4 % (11.6-17.2); WHITE BLOOD COUNT 5.7 TH/MM3 (4.0-11.0)
[2016-11-03 05:04] LABS: POTASSIUM 3.7 MEQ/L (3.5-5.1)
--- NOTE | 2016-11-03 08:22 | HHI.HP ---
HPI Service [facility] Hospitalists Primary Care Physician Dr. Kyra Dickens Admission Diagnosis A. fib with RVR Chief Complaint: Palpitations Travel History International Travel<30 Days: No Contact w/Intl Traveler <30 Da: No Traveled to Known Affected Are: No History of Present Illness Mr. Carrasco is a pleasant 66 y/o male with A. fib with RVR, hypertension, hx of tobacco use, COPD, and hyperlipidemia. This is the patients third hospitalization in the last month and a half with A. fib RVR. He was hospitalized at [place] 10/10 - 10/12/16 d/t [facility] with RVR. During that admission he had a Lexiscan on 10/12/16 which noted no reversible perfusion defects. Patient was discharged on oral Cardizem, Lopressor, and Eliquis during that admission. Pt was admitted again 10/23-10/26 again with A. fib RVR and was given IV Cardizem with conversion to normal sinus rhythm. His dose of oral Cardizem was increased to 240 mg daily and metoprolol was stopped. pt was seen by Dr. Diamond and was recommended to have evaluation by electrophysiology and possible EPS study with ablation per which was scheduled for November 16, 2016. He was continued on Eliquis. His KEESHA and diuretic were stopped to avoid hypotension. Pt presented to the ED on 11/02/16 again with complaints of palpitations. He was given 20 mg of IV Cardizem by EMS prior to arrival for a heart rate of 170. He was given another 10 mg IV Cardizem in the ED and heart rate improved, however still irregular with a rate between 90 and 115 per the ED notes. Pt was started on a Cardizem gtt and pt converted to NSR. HR has been somewhat bradycardic into the 50's. Pt resumed on Cardizem 240mg po daily. Patient denies chest pain , shortness breath, nausea/vomiting, diaphoresis. He quit smoking cigarettes 3 weeks ago. He denies alcohol or illicit drug use. Review of Systems Constitutional: DENIES: Fever, Chills Eyes: DENIES: Vision loss Ears, nose, mouth, throat: DENIES: Hearing loss Respiratory: DENIES: Cough, Shortness of breath Cardiovascular: COMPLAINS OF: Palpitations, DENIES: Chest pain, Dyspnea on Exertion, Lower Extremity Edema Gastrointestinal: DENIES: Abdominal pain, Nausea, Vomiting Genitourinary: DENIES: Dysuria Musculoskeletal: DENIES: Back pain Integumentary: DENIES: Rash Neurologic: DENIES: Headache Psychiatric: DENIES: Confusion Past Family Social History Past Medical History Paroxysmal atrial fibrillation Hypertension Hyperlipidemia GERD Erectile dysfunction History of prostate cancer, received radiation therapy Hx of tobacco use Past Surgical History Repair of left ankle fracture following orthopedic injuries secondary to a fall [facility] 01/[address] Bullard - The diagonal branches were noted to have a 30% to 40% stenosis proximally. - The first obtuse marginal branch artery mid segment noted to have a 40-50% stenosis. - The right coronary artery had a 30-40% stenosis of the mid segment. - EF was estimated at 60%. Reported Medications Cardizem CD 24 HR 240 Mg PO DAILY Eliquis 5 Mg PO BID Atorvastatin 40 Mg PO HS Allergies: Coded Allergies: Monosodium Glutamate (Verified Allergy, Intermediate, Hives, 11/02/16) Family History Mother secondary to cancer, possibly lung cancer Father age 78, possibly due to unspecified liver disease Patient has 2 brothers and 2 sisters, some of whom have hypertension Social History (+)Hx of tobacco, patient has smoked one pack per day for the last 45 years, quit 3 weeks ago (+)Alcohol use, 2 beers per day, patient denies any history of alcohol withdrawal Denies any illicit drug use Patient is originally from [place], [place] Patient is retired 2 grown children, but they do not live locally Physical Exam Vital Signs Vital Signs Date Time Temp Pulse Resp B/P Pulse Ox O2 Delivery O2 Flow Rate FiO2 11/03/16 06:30 48 11/03/16 05:00 50 11/03/16 04:20 60 11/03/16 03:20 50 11/03/16 03:20 98.5 53 16 113/70 97 11/03/16 02:10 65 11/03/16 01:45 58 11/03/16 00:00 67 11/03/16 00:00 98.3 96 18 91/62 95 11/02/16 23:00 85 11/02/16 22:10 93 11/02/16 22:05 98.2 104 16 125/96 96 11/02/16 19:48 106 16 143/77 97 Room Air 11/02/16 19:17 118 16 100 Room Air 11/02/16 19:12 16 96 Room Air 11/02/16 19:10 98.1 116 16 181/74 96 Physical Exam GENERAL: This is a well-nourished, well-developed patient, in no apparent distress. HEENT: Atraumatic. Normocephalic. No temporal or scalp tenderness. No scleral icterus. Airway patent. NECK: Trachea midline, supple, nontender. CARDIO: Regular RESP: CTA bilaterally. No wheezes, rales, or rhonchi. ABD: +BS, soft, non-tender, nondistended. EXT: Extremities without clubbing, cyanosis, or edema. NEURO: Awake and alert. Motor and sensory grossly within normal limits. Normal speech. Laboratory Laboratory Tests Test 11/02/16 11/03/16 19:20 03:59 White Blood Count 5.8 5.7 Red Blood Count 4.68 4.48 Hemoglobin 15.8 15.1 Hematocrit 44.2 42.4 Mean Corpuscular Volume 94.5 94.6 Mean Corpuscular Hemoglobin 33.8 33.7 Mean Corpuscular Hemoglobin 35.8 35.7 Concent Red Cell Distribution Width 12.2 12.4 Platelet Count 215 221 Mean Platelet Volume 8.2 7.6 Neutrophils (%) (Auto) 61.7 54.9 Lymphocytes (%) (Auto) 28.2 32.4 Monocytes (%) (Auto) 7.9 10.6 Eosinophils (%) (Auto) 1.3 1.6 Basophils (%) (Auto) 0.9 0.5 Neutrophils # (Auto) 3.6 3.1 Lymphocytes # (Auto) 1.6 1.9 Monocytes # (Auto) 0.5 0.6 Eosinophils # (Auto) 0.1 0.1 Basophils # (Auto) 0.1 0.0 CBC Comment DIFF FINAL DIFF FINAL Differential Comment Prothrombin Time 10.8 Prothromb Time International 1.0 Ratio Activated Partial 27.8 Thromboplast Time Sodium Level 135 140 Potassium Level 3.5 3.7 Chloride Level 101 105 Carbon Dioxide Level 22.8 26.0 Anion Gap 11 9 Blood Urea Nitrogen 16 16 Creatinine 0.99 1.00 Estimat Glomerular Filtration 76 75 Rate Random Glucose 96 88 Calcium Level 9.3 9.1 Magnesium Level 1.6 Total Creatine Kinase 85 Troponin I LESS THAN 0.02 Result Diagram: 11/03/16 0359 11/03/16 0359 Septic Shock Reassessment Heart: Regular rate and rhythm Lungs: Clear Skin: Warm Assessment and Plan Problem List: (1) Atrial fibrillation with RVR Status: Chronic Plan: - Pt is a 66 y/o with A. fib RVR. This is the patients third hospitalization in the last month and a half for A. fib RVR. - He was hospitalized at [place] 10/10-10/12/16 during which he had a Lexiscan on 10/12/16 which noted no reversible perfusion defects. Patient was discharged on oral Cardizem, Lopressor, and Eliquis during that admission. - Pt was admitted again 10/23-10/26 again with A. fib RVR and was given IV Cardizem with conversion to normal sinus rhythm. His dose of oral Cardizem was increased to 240 mg daily and metoprolol was stopped. Pt was seen by Dr. Diamond and was recommended to have evaluation by electrophysiology and possible EPS study with ablation per which was scheduled for November 16, 2016. He was continued on Eliquis. His KEESHA and diuretic were stopped to avoid hypotension. - Pt presented to the ED on 11/02/16 again with complaints of palpitations. He was given 20 mg of IV Cardizem by EMS prior to arrival for a heart rate of 170. He was given another 10 mg IV Cardizem in the ED and heart rate improved, however still irregular with a rate between 90 and 115 per the ED notes. Pt was started on a Cardizem gtt and pt converted to NSR. HR has been somewhat bradycardic into the 50's. - Pt resumed on Cardizem 240mg po daily. - Cardiology consulted - Pt continued on Eliquis - Telemetry - Supportive care - DVT prophylaxis (2) Hypertension Status: Chronic Plan: - BP is stable. - Monitor (3) Hyperlipidemia Status: Chronic Plan: - Cont. home meds (4) GERD (gastroesophageal reflux disease) Status: Chronic Plan: - PPI (5) Tobacco abuse Status: Chronic Plan: - Pt quit smoking about 3 weeks ago. Assessment and Plan Patient examined. Assessment and plan formulated with Adeline Joyce PA-C. I agree with the above. Physician Certification 2 Midnight Certification Type: Admission for Inpatient Services Order for Inpatient Services The services are ordered in accordance with Medicare regulations or non- Medicare payer requirements, as applicable. In the case of services not specified as inpatient-only, they are appropriately provided as inpatient services in accordance with the 2-midnight benchmark. Estimated LOS (days): 3 3 days is the estimated time the patient will need to remain in the hospital, assuming treatment plan goals are met and no additional complications. Post-Hospital Plan: Home Adeline Joyce Nov 03, 2016 08:22 Jaylen Menjivar DO Nov 04, 2016 09:50
[2016-11-03] MEDS: SODIUM CHLORIDE 0.9% FLUSH 10 ML FLUSH IV FLUSH SCH ×2 (09:00→19:49)
[2016-11-03] MEDS: DILTIAZEM-CD 240 MG CAP ER PO SCH (09:33)
[2016-11-03] MEDS: APIXABAN 5 MG TABLET PO SCH ×2 (09:33→19:47)
--- NOTE | 2016-11-03 13:20 | EKG ---
Date Performed: 11/02/2016 Time Performed: 19:01:51 PTAGE: 66 years EKG: ATRIAL FIBRILLATION MODERATE ST DEPRESSION ABNORMAL ECG PREVIOUS TRACING : 10/23/2016 23.02 compared to the previous EKG atrial fibrillation with cont rolled ventricular responses new DOCTOR: Danny Abad Interpretating Date/Time 11/03/2016 13:15:27
--- NOTE | 2016-11-03 16:14 | MB ---
cc: ELPIDIO GRIFFITH DO DATE OF CONSULTATION November 03, 2016 REASON FOR CONSULTATION Atrial fibrillation with rapid ventricular response. HISTORY OF PRESENT ILLNESS Hector Carrasco is a pleasant 66-year-old male who presented to [facility] Emergency Room on November 02, 2016 due to palpitations. 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 EMS was called and on arrival he was found to be in atrial fibrillation with rapid ventricular response at a heart rate of 150-170. He was given 20 milligrams of IV Cardizem and then an additional 10 milligrams in the ER. He was placed on a Cardizem drip and admitted to [facility] floor. He has recently had two other episodes of atrial fibrillation with rapid ventricular response on October 25 and October 10. During that time he was seen by Dr. Diamond, EP cardiology, for consideration of ablation. He recommended at that time that the patient be anticoagulated for 3 weeks and then readmitted for possible ablation. In seeing him today he is currently without chest pain or shortness of breath. During the episode that brought him into the emergency room he denies chest pain or shortness of breath, with his only complaint being palpitations. Overnight, he converted from atrial fibrillation to sinus bradycardia but now is currently in atrial fibrillation with a controlled ventricular response around 70-80 beats per minute. PAST MEDICAL HISTORY 1. Paroxysmal atrial fibrillation. 2. Hypertension. 3. Hyperlipidemia. 4. GERD. 5. Erectile dysfunction. 6. History of prostate cancer for which he received radiation therapy. 7. History of tobacco abuse. PAST SURGICAL HISTORY 1. Repair of left ankle fracture following orthopedic injuries secondary to fall. 2. Left heart catheterization (January 14, 2007) left main no significant disease. LAD no significant disease. Diagonal has about a 30-40% stenosis diffuse in the proximal portion. Left circumflex gives rise to two obtuse marginal branches. First obtuse marginal has 44-50% stenosis. RCA has about a 30-40% stenosis of the midportion. ALLERGIES MONOSODIUM GLUTAMATE. MEDICATIONS 1. Eliquis 5 milligrams b.i.d. 2. Cardizem CD 240 milligrams daily 3. Lipitor 40 milligrams every night. FAMILY HISTORY Mother secondary to cancer, thought to be lung cancer. Father at the age of 78 due to unspecified liver disease. The patient has two brothers and two sisters of which their only significant disease is hypertension. SOCIAL HISTORY The patient has a history of tobacco abuse, previously smoking one pack a day for at least 45 years but quit 3 weeks ago. He has a history of drinking two beers per day. Denies illicit drug abuse. REVIEW OF SYSTEMS 14-systems were reviewed including osteopathic, pertinent positives and negatives above otherwise negative. PHYSICAL EXAMINATION VITAL SIGNS: Temperature 97.8, heart rate 70, blood pressure 129/70, respirations 18, pulse ox 95% on room air. GENERAL: In general, the patient appears well in no acute distress, alert, awake and oriented x3. HEENT: Extraocular muscles intact. Mucous membranes moist. NECK: Neck is supple. No JVD at 45 degrees. No carotid bruits heard bilaterally. CARDIOVASCULAR: Heart is irregularly irregular. Positive first and second heart sounds with no noted murmurs, gallops or rubs. PMI is difficult to ascertain but does not appear displaced. LUNGS: Clear to auscultation bilaterally. No wheezes, rales or rhonchi. ABDOMEN: Soft, nontender, nondistended. No organomegaly noted. EXTREMITIES: Show no clubbing, cyanosis or edema. Femoral and distal pulses intact bilaterally. NEUROLOGICALLY: No focal deficits. SKIN: Warm, dry and intact. OSTEOPATHIC: No kyphoscoliosis, lordosis or paraspinal tender points. LABORATORY FINDINGS Hemoglobin 15.1, hematocrit 42.4, platelets 221. Potassium 3.7, BUN 16, creatinine 1.0. Troponin 0.02. CARDIOLOGY STUDIES Electrocardiogram: (November 02, 2016 at 19:01) atrial fibrillation with controlled ventricular response, nonspecific ST-T wave changes. IMPRESSION 1. Multiple admissions for atrial fibrillation with rapid ventricular response. 2. Hypertension. 3. Hyperlipidemia. 4. Gastroesophageal reflux disease. 5. History of tobacco abuse, quitting cigarette 3 weeks ago. 6. Normal myocardial perfusion scan showing no ischemia (October 12, 2016). RECOMMENDATIONS 1. Mr. Carrasco appeared to have presented with atrial fibrillation with rapid ventricular response and has since been placed on a Cardizem drip. Since that time he has converted back to sinus bradycardia and now is in atrial fibrillation with a controlled ventricular response. 2. He had previously seen Dr. Diamond and he is considering atrial fibrillation ablation, although, he would like to have him anticoagulated for three weeks' time before this procedure is done to decrease his risk of stroke. 3. At this time Mr. Carrasco's heart rate is currently controlled on his Cardizem 240 milligrams daily. When he does convert out of atrial fibrillation he is in sinus bradycardia with heart rates in the upper 40s, low 50s, so I have trouble further increasing any of his medications at this time. 4. My goal would be to hopefully discharge him today and have him avoid strenuous activity until seeing Dr. Diamond, as Dr. Diamond is currently out on vacation and unable to consider ablation. 5. Mr. Carrasco should continue on his Eliquis as previously instructed. Thank you for allowing me to see Froy Carrasco. If there are any questions please do not hesitate to call. Elpidio Griffith DO VGP/EO /2:21 PM /4:02 PM
[2016-11-03] MEDS: ATORVASTATIN 40 MG TAB PO SCH (19:47)
[2016-11-03] MEDS: ACETAMINOPHEN 325 MG TAB PO PRN (19:47)
[2016-11-04] VITALS (26 sets, daily range): BP systolic 111–139; BP diastolic 76–89; PULSE 43–80; RESP 18; TEMP 97.6–98.7; O2SAT 94–98
[2016-11-04 06:43] LABS: AUTOMATED NEUTROPHIL # 2.9 TH/MM3 (1.8-7.7); BASOPHIL % 0.8 % (0.0-2.0); EOSINOPHIL # 0.1 TH/MM3 (0-0.4); EOSINOPHIL % 2.4 % (0.0-4.0); HEMATOCRIT 42.1 % (39.0-51.0); HEMO FLAGS DIFF FINAL; LYMPH % 30.2 % (9.0-44.0); LYMPHOCYTE # 1.5 TH/MM3 (1.0-4.8); MEAN CELL VOLUME 95.1 FL (80.0-100.0); MEAN CORPUSCULAR HEMOGLOBIN 34.1 PG (27.0-34.0); MEAN CORPUSCULAR HGB CONC 35.9 % (32.0-36.0); MONO % 8.6 % (0.0-8.0); PLATELET COUNT 206 TH/MM3 (150-450); RED BLOOD COUNT 4.43 MIL/MM3 (4.50-5.90); RED CELL DISTRIBUTION WIDTH 12.3 % (11.6-17.2)
[2016-11-04 07:14] LABS: BICARBONATE 26.8 MEQ/L (21.0-32.0); MAGNESIUM 1.9 MG/DL (1.5-2.5); POTASSIUM 4.3 MEQ/L (3.5-5.1)
--- NOTE | 2016-11-04 08:27 | HHI.DCPOC ---
Discharge Care Plan Diagnosis: (1) Atrial fibrillation with RVR (2) Hypertension (3) Hyperlipidemia (4) GERD (gastroesophageal reflux disease) Goals to Promote Your Health * To prevent worsening of your condition and complications * To maintain your health at the optimal level Directions to Meet Your Goals Take your medications as prescribed Follow your dietary instruction Follow activity as directed Keep your appointments as scheduled Take your immunizations and boosters as scheduled If your symptoms worsen call your PCP, if no PCP go to Urgent Care Center or Emergency Room Smoking is Dangerous to Your Health. Avoid second hand smoke Call the 24-hour hour crisis hotline for domestic abuse at Adeline Joyce Nov 04, 2016 08:26 Jaylen Menjivar DO Nov 08, 2016 10:57
--- NOTE | 2016-11-04 08:48 | HHI.PR ---
Subjective Remarks No new complaints. HR stable overnight. Pt currently in sinus rhythm with HR in the 40's Objective Vitals Vital Signs Date Time Temp Pulse Resp B/P Pulse Ox O2 Delivery O2 Flow Rate FiO2 11/04/16 08:00 98.2 62 18 122/76 96 11/04/16 07:00 52 11/04/16 06:00 47 11/04/16 05:00 48 11/04/16 04:00 45 11/04/16 04:00 98.1 60 18 111/77 96 11/04/16 03:00 58 11/04/16 02:00 46 11/04/16 01:00 43 11/04/16 00:00 97.9 55 18 121/77 97 11/04/16 00:00 47 11/03/16 23:00 50 11/03/16 22:00 52 11/03/16 21:00 56 11/03/16 20:00 98.0 54 18 127/85 97 11/03/16 20:00 64 11/03/16 19:00 58 11/03/16 18:00 54 11/03/16 17:00 76 11/03/16 16:00 97.3 56 18 113/70 95 11/03/16 16:00 52 11/03/16 15:00 52 11/03/16 14:00 60 11/03/16 13:00 60 11/03/16 12:00 58 11/03/16 11:30 97.8 56 18 129/78 95 11/03/16 11:00 58 11/03/16 09:00 62 11/03/16 11/03/16 11/04/16 15:00 23:00 07:00 Intake Total 600 ml 240 ml Output Total 575 ml Balance 600 ml -335 ml Intake Oral 600 ml 240 ml Output Urine Total 575 ml # Voids 4 Result Diagram: 11/04/1661811/04/16618 Other Results Laboratory Tests Test 11/02/16 11/03/16 11/04/16 19:20 03:59 06:19 White Blood Count 5.8 TH/MM3 5.7 TH/MM3 5.0 TH/MM3 Red Blood Count 4.68 MIL/MM3 4.48 MIL/MM3 4.43 MIL/MM3 Hemoglobin 15.8 GM/DL 15.1 GM/DL 15.1 GM/DL Hematocrit 44.2 % 42.4 % 42.1 % Mean Corpuscular Volume 94.5 FL 94.6 FL 95.1 FL Mean Corpuscular Hemoglobin 33.8 PG 33.7 PG 34.1 PG Mean Corpuscular Hemoglobin 35.8 % 35.7 % 35.9 % Concent Red Cell Distribution Width 12.2 % 12.4 % 12.3 % Platelet Count 215 TH/MM3 221 TH/MM3 206 TH/MM3 Mean Platelet Volume 8.2 FL 7.6 FL 7.8 FL Neutrophils (%) (Auto) 61.7 % 54.9 % 58.0 % Lymphocytes (%) (Auto) 28.2 % 32.4 % 30.2 % Monocytes (%) (Auto) 7.9 % 10.6 % 8.6 % Eosinophils (%) (Auto) 1.3 % 1.6 % 2.4 % Basophils (%) (Auto) 0.9 % 0.5 % 0.8 % Neutrophils # (Auto) 3.6 TH/MM3 3.1 TH/MM3 2.9 TH/MM3 Lymphocytes # (Auto) 1.6 TH/MM3 1.9 TH/MM3 1.5 TH/MM3 Monocytes # (Auto) 0.5 TH/MM3 0.6 TH/MM3 0.4 TH/MM3 Eosinophils # (Auto) 0.1 TH/MM3 0.1 TH/MM3 0.1 TH/MM3 Basophils # (Auto) 0.1 TH/MM3 0.0 TH/MM3 0.0 TH/MM3 CBC Comment DIFF FINAL DIFF FINAL DIFF FINAL Differential Comment Prothrombin Time 10.8 SEC Prothromb Time International 1.0 RATIO Ratio Activated Partial 27.8 SEC Thromboplast Time Sodium Level 135 MEQ/L 140 MEQ/L 139 MEQ/L Potassium Level 3.5 MEQ/L 3.7 MEQ/L 4.3 MEQ/L Chloride Level 101 MEQ/L 105 MEQ/L 107 MEQ/L Carbon Dioxide Level 22.8 MEQ/L 26.0 MEQ/L 26.8 MEQ/L Anion Gap 11 MEQ/L 9 MEQ/L 5 MEQ/L Blood Urea Nitrogen 16 MG/DL 16 MG/DL 13 MG/DL Creatinine 0.99 MG/DL 1.00 MG/DL 0.92 MG/DL Estimat Glomerular Filtration 76 ML/MIN 75 ML/MIN 83 ML/MIN Rate Random Glucose 96 MG/DL 88 MG/DL 90 MG/DL Calcium Level 9.3 MG/DL 9.1 MG/DL 8.9 MG/DL Magnesium Level 1.6 MG/DL 1.9 MG/DL Total Creatine Kinase 85 U/L Troponin I LESS THAN 0.02 NG/ML Objective Remarks General: NAD, AAOx3 Chest: CTA Cardiac: Regular Abd: +BS, soft ND/NT Ext: No edema A/P Problem List: (1) Atrial fibrillation with RVR Status: Chronic Plan: - Pt is a 66 y/o with A. fib RVR. This is the patients third hospitalization in the last month and a half for A. fib RVR. - He was hospitalized at [place] 10/10-10/12/16 during which he had a Lexiscan on 10/12/16 which noted no reversible perfusion defects. Patient was discharged on oral Cardizem, Lopressor, and Eliquis during that admission. - Pt was admitted again 10/23-10/26 again with A. fib RVR and was given IV Cardizem with conversion to normal sinus rhythm. His dose of oral Cardizem was increased to 240 mg daily and metoprolol was stopped. Pt was seen by Dr. Diamond and was recommended to have evaluation by electrophysiology and possible EPS study with ablation per which was scheduled for November 16, 2016. He was continued on Eliquis. His KEESHA and diuretic were stopped to avoid hypotension. - Pt presented to the ED on 11/02/16 again with complaints of palpitations. He was given 20 mg of IV Cardizem by EMS prior to arrival for a heart rate of 170. He was given another 10 mg IV Cardizem in the ED and heart rate improved, however still irregular with a rate between 90 and 115 per the ED notes. Pt was started on a Cardizem gtt and pt converted to NSR. HR has been somewhat bradycardic into the 50's. - Pt resumed on Cardizem 240mg po daily. - Cardiology consulted and has recommended that the patient be discharged to followup outpt with Dr. Diamond as he is currently on vacation and unable to see the pt now. Recommended no strenuous activity until seen by Dr. Diamond. - The pt is currently in sinus rhythm, bradycardic into the 40's, which is not unusual for him. - Cont. Cardizem 240mg po daily - Continue Eliquis - Telemetry - Supportive care - We will discuss the case with Cardiology today for clarification on when Dr. Diamond will be back in town. - DVT prophylaxis (2) Hypertension Status: Chronic Plan: - BP is stable. - Monitor (3) Hyperlipidemia Status: Chronic Plan: - Cont. home meds (4) GERD (gastroesophageal reflux disease) Status: Chronic Plan: - PPI (5) Tobacco abuse Status: Chronic Plan: - Pt quit smoking about 3 weeks ago. Assessment and Plan Patient examined. Assessment and plan formulated with Adeline Joyce PA-C. I agree with the above. Adeline Joyce Nov 04, 2016 08:48 Jaylen Menjivar DO Nov 06, 2016 09:39
[2016-11-04] MEDS: DILTIAZEM-CD 240 MG CAP ER PO SCH (09:33)
[2016-11-04] MEDS: SODIUM CHLORIDE 0.9% FLUSH 10 ML FLUSH IV FLUSH SCH ×2 (09:33→19:36)
[2016-11-04] MEDS: APIXABAN 5 MG TABLET PO SCH ×2 (09:33→19:35)
--- NOTE | 2016-11-04 16:16 | PD.CARD.PN ---
Subjective Subjective Remarks No events over night No chest pain, no shortness of breath Telemetry showing sinus tj/sinus rhythm, no atrial fibrillation since yesterday Objective Medications Current Medications Medications (Trade) Dose Ordered Sig/Michelle Route Start Time Stop Time Status Last Admin (NS Flush) 2 ml UNSCH PRN IV FLUSH 11/02/16 20:30 (NS Flush) 2 ml BID IV FLUSH 11/02/16 21:00 11/04/16 09:33 (Tylenol) 650 mg Q4H PRN PO 11/02/16 20:30 11/03/16 19:47 (Zofran Inj) 4 mg Q6H PRN IVP 11/02/16 20:30 (Restoril) 15 mg HS PRN PO 11/02/16 20:30 (Narcan Inj) 0.4 mg UNSCH PRN IV 11/02/16 20:30 (Milk Of Magnesia Liq) 30 ml Q12H PRN PO 11/02/16 20:30 (Eliquis) 5 mg BID PO 11/02/16 21:00 11/04/16 09:33 (Lipitor) 40 mg HS PO 11/02/16 21:00 11/03/16 19:47 Diltiazem HCl 240 mg 240 mg DAILY PO 11/03/16 09:00 11/04/16 09:33 (Cardizem Inj/NS Inj) 125 ml @ 0 mls/hr TITRATE PRN IV 11/03/16 00:45 (Multaq) 400 mg BID PO 11/04/16 21:00 Vital Signs / I&O Vital Signs Date Time Temp Pulse Resp B/P Pulse Ox O2 Delivery O2 Flow Rate FiO2 11/04/16 12:00 60 11/04/16 11:30 97.6 62 18 139/89 94 11/04/16 11:00 67 11/04/16 10:00 60 11/04/16 09:00 58 11/04/16 08:00 98.2 62 18 122/76 96 11/04/16 08:00 46 11/04/16 07:00 52 11/04/16 06:00 47 11/04/16 05:00 48 11/04/16 04:00 45 11/04/16 04:00 98.1 60 18 111/77 96 11/04/16 03:00 58 11/04/16 02:00 46 11/04/16 01:00 43 11/04/16 00:00 97.9 55 18 121/77 97 11/04/16 00:00 47 11/03/16 23:00 50 11/03/16 22:00 52 11/03/16 21:00 56 11/03/16 20:00 98.0 54 18 127/85 97 11/03/16 20:00 64 11/03/16 19:00 58 11/03/16 18:00 54 11/03/16 17:00 76 I/O 11/03/16 11/03/16 11/03/16 11/04/16 11/04/16 11/04/16 07:00 15:00 23:00 07:00 15:00 23:00 Intake Total 252 ml 600 ml 240 ml Output Total 525 ml 575 ml Balance -273 ml 600 ml -335 ml Intake Oral 240 ml 600 ml 240 ml IV Total 12 ml Output Urine Total 525 ml 575 ml # Voids 4 Physical Exam GENERAL: NAD, AAOx3 SKIN: Warm and dry. HEAD: Atraumatic. Normocephalic. EYES: Pupils equal and round. No scleral icterus. No injection or drainage. ENT: No nasal bleeding or discharge. Mucous membranes pink and moist. NECK: Trachea midline. No JVD. CARDIOVASCULAR: Regular rhythm, bradycardic RESPIRATORY: No accessory muscle use. Clear to auscultation. Breath sounds equal bilaterally. GASTROINTESTINAL: Abdomen soft, non-tender, nondistended. Hepatic and splenic margins not palpable. MUSCULOSKELETAL: Extremities without clubbing, cyanosis, or edema. No obvious deformities. NEUROLOGICAL: Awake and alert. No obvious cranial nerve deficits. Motor grossly within normal limits. Five out of 5 muscle strength in the arms and legs. Normal speech. PSYCHIATRIC: Appropriate mood and affect; insight and judgment normal. Laboratory Laboratory Tests Test 11/04/16 06:19 White Blood Count 5.0 TH/MM3 Red Blood Count 4.43 MIL/MM3 Hemoglobin 15.1 GM/DL Hematocrit 42.1 % Mean Corpuscular Volume 95.1 FL Mean Corpuscular Hemoglobin 34.1 PG Mean Corpuscular Hemoglobin 35.9 % Concent Red Cell Distribution Width 12.3 % Platelet Count 206 TH/MM3 Mean Platelet Volume 7.8 FL Neutrophils (%) (Auto) 58.0 % Lymphocytes (%) (Auto) 30.2 % Monocytes (%) (Auto) 8.6 % Eosinophils (%) (Auto) 2.4 % Basophils (%) (Auto) 0.8 % Neutrophils # (Auto) 2.9 TH/MM3 Lymphocytes # (Auto) 1.5 TH/MM3 Monocytes # (Auto) 0.4 TH/MM3 Eosinophils # (Auto) 0.1 TH/MM3 Basophils # (Auto) 0.0 TH/MM3 CBC Comment DIFF FINAL Differential Comment Sodium Level 139 MEQ/L Potassium Level 4.3 MEQ/L Chloride Level 107 MEQ/L Carbon Dioxide Level 26.8 MEQ/L Anion Gap 5 MEQ/L Blood Urea Nitrogen 13 MG/DL Creatinine 0.92 MG/DL Estimat Glomerular Filtration 83 ML/MIN Rate Random Glucose 90 MG/DL Calcium Level 8.9 MG/DL Magnesium Level 1.9 MG/DL Assessment and Plan Problem List: (1) Atrial fibrillation with RVR (2) Hypertension (3) Hyperlipidemia (4) History of prostate cancer Assessment and Plan 1) Multiple admissions for atrial fibrillation with RVR 2) For ablation by Dr. Diamond Wants to have at least 3 weeks of anti-coagulation 3) Con't Eliquis 4) Started on Multaq by Elpidio Duran DO Nov 04, 2016 16:16
[2016-11-04] MEDS: ATORVASTATIN 40 MG TAB PO SCH (19:35)
[2016-11-04] MEDS: DRONEDARONE 400 MG TAB PO SCH (19:36)
[2016-11-05] VITALS (24 sets, daily range): BP systolic 125–133; BP diastolic 76–87; PULSE 42–77; RESP 18–20; TEMP 97.4–98.7; O2SAT 94–98
--- NOTE | 2016-11-05 08:25 | MB ---
cc: DOMINGO WEATHERS MD DATE OF CONSULTATION November 04, 2016 DATE OF [address] Beth and Dr. Menjivar. REASON FOR CONSULTATION Management of atrial fibrillation including evaluation for ablation. HISTORY OF PRESENT ILLNESS Mr. Carrasco is a 66-year-old gentleman known to Dr. Diamond. He does have symptomatic paroxysmal atrial fibrillation with recent multiple hospitalizations for atrial fibrillation. He was admitted between October 10 and October 12 and again on October 23 to October 26 for symptomatic atrial fibrillation. Over the last few days the patient has noticed palpitations, admitted and so far he has come back into a normal sinus rhythm. Occasionally he has sinus bradycardia. He was seen by Dr. Menjivar and Dr. Beth. So far he has been put on Eliquis and scheduled to have ablation with Dr. Diamond on November 16, 2016. He did have cardiac catheterization 2006 which showed 30-40% disease in multiple areas. So far he has converted back in a normal rhythm. No TIA or stroke. He is on Eliquis 5 mg b.i.d. PAST MEDICAL HISTORY As above. Also he is a smoker and has some degree of COPD. ALLERGIES MONOSODIUM GLUTAMATE. FAMILY HISTORY Mother of cancer. Father at age 78 of liver disease. REVIEW OF SYSTEMS HEENT: Normal. GI: No nausea or vomiting. : No dysuria. MSK: Fatigue. CVS: As above. CHEST: Some dyspnea. ENDOCRINE: Normal. SKIN: Normal. PSYCH: Normal. 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 MEDICATIONS 1. Cardizem CD 240 mg daily. 2. Eliquis 5 mg b.i.d. PHYSICAL EXAMINATION VITAL SIGNS: Blood pressure 139/89 with pulse in the 60s and sinus. The patient is afebrile. HEENT: Normal. PERRLA. NECK: There is no thyroid enlargement. LYMPHATIC SYSTEM: No lymphadenopathy. RESPIRATORY: Decreased breath sounds bilaterally but no crackles. CARDIOVASCULAR: Regular rhythm. No rubs, no murmurs. No JVP visualized. GI: Active bowel sounds in all four quadrants. : Deferred. MSK: Normal range of motion. SKIN: No ecchymosis. PSYCH: Patient with good mood and good judgment. TESTS So fat the WBCs of 5.0. Creatinine 0.92. TELEMETRY Sinus with heart rate in the 60s. ASSESSMENT 1. Symptomatic paroxysmal atrial fibrillation with intermittent tachycardia. 2. Palpitations. 3. Hypertension. 4. Hypercholesteremia. 5. Smoking and COPD. PLAN I did discuss with the patient all the options. Dr. Diamond currently is away until Wednesday. I would try to have the patient taking Multaq to see how he does in the next few days. If he is okay, without recurrence of atrial fibrillation, can be discharged with outpatient followup. Dr. Diamond will try to move the patient up sooner once insurance approves ablation for the outpatient setting. I will Eliquis for prevention of stroke. I did emphasize the importance of smoking cessation. Continue Cardizem. If he does have occasional bradycardia, we will see how he does with Multaq at least overnight. If he is feeling okay, may discharge home tomorrow with scheduled outpatient ablation for atrial fibrillation by Dr. Diamond. I would like to thank Dr. Menjivar and Dr. Beth for letting me participate in the care of Mr. Carrasco. MD CHARLENE Madera/DEBORAH /12:56 PM /8:28 AM
[2016-11-05] MEDS: DILTIAZEM-CD 240 MG CAP ER PO SCH (08:48)
[2016-11-05] MEDS: APIXABAN 5 MG TABLET PO SCH ×2 (08:48→22:10)
[2016-11-05] MEDS: DRONEDARONE 400 MG TAB PO SCH (08:49)
[2016-11-05] MEDS: SODIUM CHLORIDE 0.9% FLUSH 10 ML FLUSH IV FLUSH SCH ×2 (08:49→22:11)
--- NOTE | 2016-11-05 09:03 | HHI.PR ---
Subjective Remarks Pt is anxious to go home. No specific complaints today Objective Vitals Vital Signs Date Time Temp Pulse Resp B/P Pulse Ox O2 Delivery O2 Flow Rate FiO2 11/05/16 06:01 50 11/05/16 05:07 50 11/05/16 04:39 98.7 54 18 133/80 95 11/05/16 04:21 49 11/05/16 03:11 52 11/05/16 02:02 42 11/05/16 01:02 53 11/05/16 00:07 52 11/04/16 23:27 98.7 54 18 123/81 98 11/04/16 23:13 54 11/04/16 22:12 58 11/04/16 21:20 61 11/04/16 20:49 58 11/04/16 19:38 98.7 58 18 130/86 96 11/04/16 18:00 50 11/04/16 17:00 56 11/04/16 16:00 50 11/04/16 16:00 97.6 65 18 125/84 96 11/04/16 15:00 58 11/04/16 14:00 66 11/04/16 13:00 80 11/04/16 12:00 60 11/04/16 11:30 97.6 62 18 139/89 94 11/04/16 11:00 67 11/04/16 10:00 60 11/04/16 11/04/16 11/05/16 14:59 22:59 06:59 Intake Total 720 ml 240 ml Balance 720 ml 240 ml Intake Oral 720 ml 240 ml # Voids 4 3 Result Diagram: 11/04/1661811/04/16618 Other Results Laboratory Tests Test 11/04/16 06:19 White Blood Count 5.0 TH/MM3 Red Blood Count 4.43 MIL/MM3 Hemoglobin 15.1 GM/DL Hematocrit 42.1 % Mean Corpuscular Volume 95.1 FL Mean Corpuscular Hemoglobin 34.1 PG Mean Corpuscular Hemoglobin 35.9 % Concent Red Cell Distribution Width 12.3 % Platelet Count 206 TH/MM3 Mean Platelet Volume 7.8 FL Neutrophils (%) (Auto) 58.0 % Lymphocytes (%) (Auto) 30.2 % Monocytes (%) (Auto) 8.6 % Eosinophils (%) (Auto) 2.4 % Basophils (%) (Auto) 0.8 % Neutrophils # (Auto) 2.9 TH/MM3 Lymphocytes # (Auto) 1.5 TH/MM3 Monocytes # (Auto) 0.4 TH/MM3 Eosinophils # (Auto) 0.1 TH/MM3 Basophils # (Auto) 0.0 TH/MM3 CBC Comment DIFF FINAL Differential Comment Sodium Level 139 MEQ/L Potassium Level 4.3 MEQ/L Chloride Level 107 MEQ/L Carbon Dioxide Level 26.8 MEQ/L Anion Gap 5 MEQ/L Blood Urea Nitrogen 13 MG/DL Creatinine 0.92 MG/DL Estimat Glomerular Filtration 83 ML/MIN Rate Random Glucose 90 MG/DL Calcium Level 8.9 MG/DL Magnesium Level 1.9 MG/DL Objective Remarks General: NAD, AAOx3 Chest: CTA Cardiac: Regular Abd: +BS, soft ND/NT Ext: No edema A/P Problem List: (1) Atrial fibrillation with RVR Status: Chronic Plan: - Pt is a 66 y/o with A. fib RVR. This is the patients third hospitalization in the last month and a half for A. fib RVR. - He was hospitalized at [place] 10/10-10/12/16 during which he had a Lexiscan on 10/12/16 which noted no reversible perfusion defects. Patient was discharged on oral Cardizem, Lopressor, and Eliquis during that admission. - Pt was admitted again 10/23-10/26 again with A. fib RVR and was given IV Cardizem with conversion to normal sinus rhythm. His dose of oral Cardizem was increased to 240 mg daily and metoprolol was stopped. Pt was seen by Dr. Diamond and was recommended to have evaluation by electrophysiology and possible EPS study with ablation per which was scheduled for November 16, 2016. He was continued on Eliquis. His KEESHA and diuretic were stopped to avoid hypotension. - Pt presented to the ED on 11/02/16 again with complaints of palpitations. He was given 20 mg of IV Cardizem by EMS prior to arrival for a heart rate of 170. He was given another 10 mg IV Cardizem in the ED and heart rate improved, however still irregular with a rate between 90 and 115 per the ED notes. Pt was started on a Cardizem gtt and pt converted to NSR. HR has been somewhat bradycardic into the 50's. - Pt resumed on Cardizem 240mg po daily. - Appreciate Cardiology consult - Pt has been seen by Dr. Beth and Dr. Sosa. - Pt was to have Multaq 400mg BID started in addition to the Cardizem but his HR has been too low to administer this medication. - Pt continued on Eliquis - Dr. Menjivar spoke with Dr. Sosa this morning and the plan is to d/c the Cardizem and resume the Multaq tomorrow morning. - We will monitor on telemetry - Supportive care - DVT prophylaxis (2) Hypertension Status: Chronic Plan: - BP is stable. - Monitor (3) Hyperlipidemia Status: Chronic Plan: - Cont. home meds (4) GERD (gastroesophageal reflux disease) Status: Chronic Plan: - PPI (5) Tobacco abuse Status: Chronic Plan: - Pt quit smoking about 3 weeks ago. Assessment and Plan Patient examined. Assessment and plan formulated with Adeline Joyce PA-C. I agree with the above. Adeline Joyce Nov 05, 2016 09:03 Jaylen Menjivar DO Nov 07, 2016 12:27
--- NOTE | 2016-11-05 12:39 | PD.CARD.PN ---
Subjective Subjective Remarks No events over night Telemetry showing sinus rhythm, no events No chest pain, no shortness of breath Objective Medications Current Medications Medications (Trade) Dose Ordered Sig/Michelle Route Start Time Stop Time Status Last Admin (NS Flush) 2 ml UNSCH PRN IV FLUSH 11/02/16 20:30 (NS Flush) 2 ml BID IV FLUSH 11/02/16 21:00 11/05/16 08:49 (Tylenol) 650 mg Q4H PRN PO 11/02/16 20:30 11/03/16 19:47 (Zofran Inj) 4 mg Q6H PRN IVP 11/02/16 20:30 (Restoril) 15 mg HS PRN PO 11/02/16 20:30 (Narcan Inj) 0.4 mg UNSCH PRN IV 11/02/16 20:30 (Milk Of Magnesia Liq) 30 ml Q12H PRN PO 11/02/16 20:30 (Eliquis) 5 mg BID PO 11/02/16 21:00 11/05/16 08:48 (Lipitor) 40 mg HS PO 11/02/16 21:00 11/04/16 19:35 Diltiazem HCl 240 mg 240 mg DAILY PO 11/03/16 09:00 11/05/16 08:48 (Cardizem Inj/NS Inj) 125 ml @ 0 mls/hr TITRATE PRN IV 11/03/16 00:45 (Multaq) 400 mg BID PO 11/04/16 21:00 Vital Signs / I&O Vital Signs Date Time Temp Pulse Resp B/P Pulse Ox O2 Delivery O2 Flow Rate FiO2 11/05/16 12:14 59 11/05/16 11:14 97.4 68 18 129/79 95 11/05/16 11:14 68 11/05/16 10:17 64 11/05/16 09:50 63 11/05/16 08:01 59 11/05/16 07:24 49 11/05/16 07:24 97.6 49 18 125/80 98 11/05/16 06:01 50 11/05/16 05:07 50 11/05/16 04:39 98.7 54 18 133/80 95 11/05/16 04:21 49 11/05/16 03:11 52 11/05/16 02:02 42 11/05/16 01:02 53 11/05/16 00:07 52 11/04/16 23:27 98.7 54 18 123/81 98 11/04/16 23:13 54 11/04/16 22:12 58 11/04/16 21:20 61 11/04/16 20:49 58 11/04/16 19:38 98.7 58 18 130/86 96 11/04/16 18:00 50 11/04/16 17:00 56 11/04/16 16:00 50 11/04/16 16:00 97.6 65 18 125/84 96 11/04/16 15:00 58 11/04/16 14:00 66 11/04/16 13:00 80 I/O 11/04/16 11/04/16 11/04/16 11/05/16 11/05/16 11/05/16 07:00 15:00 23:00 07:00 15:00 23:00 Intake Total 240 ml 720 ml 240 ml Output Total 575 ml Balance -335 ml 720 ml 240 ml Intake Oral 240 ml 720 ml 240 ml Output Urine Total 575 ml # Voids 4 3 Physical Exam GENERAL: NAD, AAOx3 SKIN: Warm and dry. HEAD: Atraumatic. Normocephalic. EYES: Pupils equal and round. No scleral icterus. No injection or drainage. ENT: No nasal bleeding or discharge. Mucous membranes pink and moist. NECK: Trachea midline. No JVD. CARDIOVASCULAR: Regular rhythm, bradycardic RESPIRATORY: No accessory muscle use. Clear to auscultation. Breath sounds equal bilaterally. GASTROINTESTINAL: Abdomen soft, non-tender, nondistended. Hepatic and splenic margins not palpable. MUSCULOSKELETAL: Extremities without clubbing, cyanosis, or edema. No obvious deformities. NEUROLOGICAL: Awake and alert. No obvious cranial nerve deficits. Motor grossly within normal limits. Five out of 5 muscle strength in the arms and legs. Normal speech. PSYCHIATRIC: Appropriate mood and affect; insight and judgment normal. Assessment and Plan Problem List: (1) Atrial fibrillation with RVR (2) Hypertension (3) Hyperlipidemia (4) History of prostate cancer Assessment and Plan 1) Multiple admissions for atrial fibrillation with RVR 2) For ablation by Dr. Diamond Wants to have at least 3 weeks of anti-coagulation 3) Con't Eliquis 4) Started on Multaq by Dr. Sosa, but not receiving due to heart rates below 60 5) Patient concerned about heart rate increasing while up walking, was told it was up to 150 bpms... but was all artifact on telemetry Elpidio Beth DO Nov 05, 2016 12:39
[2016-11-05] MEDS: ATORVASTATIN 40 MG TAB PO SCH (22:10)
[2016-11-06] VITALS (24 sets, daily range): BP systolic 120–152; BP diastolic 77–94; PULSE 50–94; RESP 16–18; TEMP 97.6–98.2; O2SAT 94–96
[2016-11-06] MEDS: APIXABAN 5 MG TABLET PO SCH ×2 (08:40→20:37)
[2016-11-06] MEDS: DRONEDARONE 400 MG TAB PO SCH ×2 (08:40→20:37)
[2016-11-06] MEDS: SODIUM CHLORIDE 0.9% FLUSH 10 ML FLUSH IV FLUSH SCH ×2 (08:41→20:37)
--- NOTE | 2016-11-06 09:41 | HHI.PR ---
Subjective Remarks No new complaints. Telemetry still sinus tj Objective Vitals Vital Signs Date Time Temp Pulse Resp B/P Pulse Ox O2 Delivery O2 Flow Rate FiO2 11/06/16 06:00 52 11/06/16 05:00 50 11/06/16 04:00 50 11/06/16 04:00 97.8 58 18 120/84 96 11/06/16 03:00 50 11/06/16 02:00 52 11/06/16 01:00 52 11/06/16 01:00 52 11/06/16 00:00 98.2 54 18 120/82 94 11/06/16 00:00 52 11/05/16 23:00 50 11/05/16 22:00 54 11/05/16 21:00 52 11/05/16 20:00 98.0 58 20 128/87 94 11/05/16 20:00 56 11/05/16 18:24 77 11/05/16 17:03 56 11/05/16 16:47 65 11/05/16 15:41 52 11/05/16 15:41 97.5 56 18 126/76 95 11/05/16 14:03 52 11/05/16 13:05 54 11/05/16 12:14 59 11/05/16 11:14 97.4 68 18 129/79 95 11/05/16 11:14 68 11/05/16 10:17 64 11/05/16 09:50 63 11/05/16 11/05/16 11/06/16 15:00 23:00 07:00 Intake Total 840 ml 240 ml Balance 840 ml 240 ml Intake Oral 840 ml 240 ml # Voids 4 5 # Bowel Movements 1 Result Diagram: 11/04/1661811/04/16618 Objective Remarks General: NAD, AAOx3 Chest: CTA Cardiac: Regular, tj Abd: +BS, soft ND/NT Ext: No edema A/P Problem List: (1) Atrial fibrillation with RVR Status: Chronic Plan: - Pt is a 66 y/o with A. fib RVR. This is the patients third hospitalization in the last month and a half for A. fib RVR. - He was hospitalized at [facility] 10/10-10/12/16 during which he had a Lexiscan on 10/12/16 which noted no reversible perfusion defects. Patient was discharged on oral Cardizem, Lopressor, and Eliquis during that admission. - Pt was admitted again 10/23-10/26 again with A. fib RVR and was given IV Cardizem with conversion to normal sinus rhythm. His dose of oral Cardizem was increased to 240 mg daily and metoprolol was stopped. Pt was seen by Dr. Diamond and was recommended to have evaluation by electrophysiology and possible EPS study with ablation per which was scheduled for November 16, 2016. He was continued on Eliquis. His KEESHA and diuretic were stopped to avoid hypotension. - Pt presented to the ED on 11/02/16 again with complaints of palpitations. He was given 20 mg of IV Cardizem by EMS prior to arrival for a heart rate of 170. He was given another 10 mg IV Cardizem in the ED and heart rate improved, however still irregular with a rate between 90 and 115 per the ED notes. Pt was started on a Cardizem gtt and pt converted to NSR. HR has been somewhat bradycardic into the 50's. - Pt resumed on Cardizem 240mg po daily. - Appreciate Cardiology consult - Pt has been seen by Dr. Beth and Dr. Sosa. - Pt was to have Multaq 400mg BID started in addition to the Cardizem but his HR has been too low to administer this medication. - Pt continued on Eliquis - Dr. Menjivar spoke with Dr. Sosa on 11/05 and the Cardizem was d/c'd and pt is to continue on just Multaq - Still with sinus tj on telemetry - Pt will likely need to stay until Wednesday for continued monitoring of his HR on telemetry and with the change in medications and then be re-evaluated by Dr. Diamond on Wednesday. - Supportive care - DVT prophylaxis (2) Hypertension Status: Chronic Plan: - BP is stable. - Monitor (3) Hyperlipidemia Status: Chronic Plan: - Cont. home meds (4) GERD (gastroesophageal reflux disease) Status: Chronic Plan: - PPI (5) Tobacco abuse Status: Chronic Plan: - Pt quit smoking about 3 weeks ago. Assessment and Plan Patient examined. Assessment and plan formulated with Adeline Joyce PA-C. I agree with the above. Adeline Joyce Nov 06, 2016 09:41 Jaylen Menjivar DO Nov 07, 2016 12:27
--- NOTE | 2016-11-06 14:42 | PD.CARD.PN ---
Subjective Subjective Remarks No events, up and ambulating Telemetry sinus tj/sinus rhythm Objective Medications Current Medications Medications (Trade) Dose Ordered Sig/Michelle Route Start Time Stop Time Status Last Admin (NS Flush) 2 ml UNSCH PRN IV FLUSH 11/02/16 20:30 (NS Flush) 2 ml BID IV FLUSH 11/02/16 21:00 11/06/16 08:41 (Tylenol) 650 mg Q4H PRN PO 11/02/16 20:30 11/03/16 19:47 (Zofran Inj) 4 mg Q6H PRN IVP 11/02/16 20:30 (Restoril) 15 mg HS PRN PO 11/02/16 20:30 (Narcan Inj) 0.4 mg UNSCH PRN IV 11/02/16 20:30 (Milk Of Magnesia Liq) 30 ml Q12H PRN PO 11/02/16 20:30 (Eliquis) 5 mg BID PO 11/02/16 21:00 11/06/16 08:40 Atorvastatin Calcium 40 mg 40 mg HS PO 11/02/16 21:00 11/05/16 22:10 (Cardizem Inj/NS Inj) 125 ml @ 0 mls/hr TITRATE PRN IV 11/03/16 00:45 (Multaq) 400 mg BID PO 11/06/16 09:00 11/06/16 08:40 Vital Signs / I&O Vital Signs Date Time Temp Pulse Resp B/P Pulse Ox O2 Delivery O2 Flow Rate FiO2 11/06/16 14:11 66 11/06/16 13:06 61 11/06/16 12:21 64 11/06/16 11:19 97.9 70 18 131/77 96 11/06/16 11:19 61 11/06/16 10:04 60 11/06/16 09:36 55 11/06/16 08:09 62 11/06/16 07:32 55 11/06/16 07:32 97.8 62 18 122/83 96 11/06/16 06:00 52 11/06/16 05:00 50 11/06/16 04:00 50 11/06/16 04:00 97.8 58 18 120/84 96 11/06/16 03:00 50 11/06/16 02:00 52 11/06/16 01:00 52 11/06/16 01:00 52 11/06/16 00:00 98.2 54 18 120/82 94 11/06/16 00:00 52 11/05/16 23:00 50 11/05/16 22:00 54 11/05/16 21:00 52 11/05/16 20:00 98.0 58 20 128/87 94 11/05/16 20:00 56 11/05/16 18:24 77 11/05/16 17:03 56 11/05/16 16:47 65 11/05/16 15:41 52 11/05/16 15:41 97.5 56 18 126/76 95 I/O 11/05/16 11/05/16 11/05/16 11/06/16 11/06/16 11/06/16 07:00 15:00 23:00 07:00 15:00 23:00 Intake Total 240 ml 840 ml 240 ml Balance 240 ml 840 ml 240 ml Intake Oral 240 ml 840 ml 240 ml # Voids 3 4 5 # Bowel Movements 1 Physical Exam GENERAL: NAD, AAOx3 SKIN: Warm and dry. HEAD: Atraumatic. Normocephalic. EYES: Pupils equal and round. No scleral icterus. No injection or drainage. ENT: No nasal bleeding or discharge. Mucous membranes pink and moist. NECK: Trachea midline. No JVD. CARDIOVASCULAR: Regular rhythm, bradycardic RESPIRATORY: No accessory muscle use. Clear to auscultation. Breath sounds equal bilaterally. GASTROINTESTINAL: Abdomen soft, non-tender, nondistended. Hepatic and splenic margins not palpable. MUSCULOSKELETAL: Extremities without clubbing, cyanosis, or edema. No obvious deformities. NEUROLOGICAL: Awake and alert. No obvious cranial nerve deficits. Motor grossly within normal limits. Five out of 5 muscle strength in the arms and legs. Normal speech. PSYCHIATRIC: Appropriate mood and affect; insight and judgment normal. Assessment and Plan Problem List: (1) Atrial fibrillation with RVR (2) Hypertension (3) Hyperlipidemia (4) History of prostate cancer Assessment and Plan 1) Multiple admissions for atrial fibrillation with RVR 2) For ablation by Dr. Diamond, planned 11/16/16 Wants to have at least 3 weeks of anti-coagulation 3) Con't Eliquis 4) Started on Multaq by Dr. Sosa, but not receiving due to heart rates below 60... Cardizem has been stopped, will attempt Multaq without AV shobha blockade 5) Patient concerned about heart rate increasing while up walking, was told it was up to 150 bpms... but was all artifact on telemetry, has been all sinus/ sinus bradycardia 6) Will see PRN, call with questions Dr. Diamond to be back on Wednesday, if patient still around, can be followed up on Elpidio Beth DO Nov 06, 2016 14:42
[2016-11-06] MEDS: PANTOPRAZOLE SOD 40 MG DELAYED RELEASE TAB PO SCH (19:53)
[2016-11-06] MEDS: CALCIUM CARBONATE 500 MG CHEWABLE TAB CHEW PRN (19:53)
[2016-11-06] MEDS: ATORVASTATIN 40 MG TAB PO SCH (20:37)
[2016-11-07] VITALS (26 sets, daily range): BP systolic 122–144; BP diastolic 80–91; PULSE 53–84; RESP 16–19; TEMP 97.6–99; O2SAT 96–99
[2016-11-07] MEDS: APIXABAN 5 MG TABLET PO SCH ×2 (08:32→20:16)
[2016-11-07] MEDS: PANTOPRAZOLE SOD 40 MG DELAYED RELEASE TAB PO SCH (08:32)
[2016-11-07] MEDS: SODIUM CHLORIDE 0.9% FLUSH 10 ML FLUSH IV FLUSH SCH ×2 (08:34→20:16)
[2016-11-07] MEDS: DRONEDARONE 400 MG TAB PO SCH ×2 (09:00→20:16)
--- NOTE | 2016-11-07 12:34 | HHI.PR ---
Subjective Remarks No new complaints. Telemetry: rhythm converted to NSR Objective Vitals Vital Signs Date Time Temp Pulse Resp B/P Pulse Ox O2 Delivery O2 Flow Rate FiO2 11/07/16 11:15 97.6 64 18 137/87 96 11/07/16 07:40 97.8 72 19 138/88 97 11/07/16 05:00 60 11/07/16 04:00 53 11/07/16 04:00 98.1 62 16 122/80 99 11/07/16 03:00 56 11/07/16 02:00 58 11/07/16 01:00 56 11/07/16 00:00 98.3 72 16 140/91 97 11/07/16 00:00 63 11/06/16 23:00 64 11/06/16 22:00 68 11/06/16 21:00 68 11/06/16 20:00 97.6 74 16 145/94 96 11/06/16 20:00 87 11/06/16 19:00 72 11/06/16 18:16 81 11/06/16 17:26 68 11/06/16 16:23 94 11/06/16 15:39 69 11/06/16 15:39 98.0 81 18 152/93 94 11/06/16 14:11 66 11/06/16 13:06 61 11/06/16 11/06/16 11/07/16 15:00 23:00 07:00 Intake Total 720 ml 620 ml Balance 720 ml 620 ml Intake Oral 720 ml 620 ml IV Total 0 ml # Voids 3 5 # Bowel Movements 1 1 Result Diagram: 11/04/1661811/04/16618 Objective Remarks General: NAD, AAOx3 Chest: CTA Cardiac: Regular, tj Abd: +BS, soft ND/NT Ext: No edema A/P Problem List: (1) Atrial fibrillation with RVR Status: Chronic Plan: - Pt is a 66 y/o with A. fib RVR. This is the patients third hospitalization in the last month and a half for A. fib RVR. - He was hospitalized at [facility] 10/10-10/12/16 during which he had a Lexiscan on 10/12/16 which noted no reversible perfusion defects. Patient was discharged on oral Cardizem, Lopressor, and Eliquis during that admission. - Pt was admitted again 10/23-10/26 again with A. fib RVR and was given IV Cardizem with conversion to normal sinus rhythm. His dose of oral Cardizem was increased to 240 mg daily and metoprolol was stopped. Pt was seen by Dr. Diamond and was recommended to have evaluation by electrophysiology and possible EPS study with ablation per which was scheduled for November 16, 2016. He was continued on Eliquis. His KEESHA and diuretic were stopped to avoid hypotension. - Pt presented to the ED on 11/02/16 again with complaints of palpitations. He was given 20 mg of IV Cardizem by EMS prior to arrival for a heart rate of 170. He was given another 10 mg IV Cardizem in the ED and heart rate improved, however still irregular with a rate between 90 and 115 per the ED notes. Pt was started on a Cardizem gtt and pt converted to NSR. HR has been somewhat bradycardic into the 50's. - Pt resumed on Cardizem 240mg po daily. - Appreciate Cardiology consult - Pt has been seen by Dr. Beth and Dr. Sosa. - Pt was to have Multaq 400mg BID started in addition to the Cardizem but his HR has been too low to administer this medication. - Pt continued on Eliquis - spoke with Dr. Sosa on 11/05 and the Cardizem was d/c'd and pt is to continue on just Multaq - Telemetry (11/07/16) NSR - await Dr. Diamond's review of the case on Wednesday . - Supportive care - DVT prophylaxis (2) Hypertension Status: Chronic Plan: - BP is stable. - Monitor (3) Hyperlipidemia Status: Chronic Plan: - Cont. home meds (4) GERD (gastroesophageal reflux disease) Status: Chronic Plan: - PPI (5) Tobacco abuse Status: Chronic Plan: - Pt quit smoking about 3 weeks ago. Jaylen Menjivar DO Nov 07, 2016 12:34
[2016-11-07] MEDS: ACETAMINOPHEN 325 MG TAB PO PRN (20:15)
[2016-11-07] MEDS: ATORVASTATIN 40 MG TAB PO SCH (20:16)
[2016-11-08] VITALS (26 sets, daily range): BP systolic 109–134; BP diastolic 72–81; PULSE 62–88; RESP 16–20; TEMP 97.7–98.8; O2SAT 96–97
[2016-11-08] MEDS: ACETAMINOPHEN 325 MG TAB PO PRN ×3 (00:10→17:28)
[2016-11-08] MEDS: PANTOPRAZOLE SOD 40 MG DELAYED RELEASE TAB PO SCH (08:33)
[2016-11-08] MEDS: APIXABAN 5 MG TABLET PO SCH (08:33)
[2016-11-08] MEDS: DRONEDARONE 400 MG TAB PO SCH (08:33)
[2016-11-08] MEDS: SODIUM CHLORIDE 0.9% FLUSH 10 ML FLUSH IV FLUSH SCH ×2 (08:35→21:00)
--- NOTE | 2016-11-08 12:58 | HHI.PR ---
Subjective Remarks No new complaints. No chest pain, no palpitations, no sob. Telemetry: NSR 70-80 Objective Vitals Vital Signs Date Time Temp Pulse Resp B/P Pulse Ox O2 Delivery O2 Flow Rate FiO2 11/08/16 12:05 65 11/08/16 11:25 97.8 78 16 109/72 96 11/08/16 11:00 75 11/08/16 10:00 76 11/08/16 09:00 74 11/08/16 08:00 74 11/08/16 07:00 73 11/08/16 07:00 98.7 87 16 113/74 96 11/08/16 06:00 64 11/08/16 05:00 77 11/08/16 04:00 73 11/08/16 04:00 98.0 84 16 134/81 97 11/08/16 03:00 66 11/08/16 02:00 68 11/08/16 01:00 77 11/08/16 00:00 88 16 112/78 96 11/08/16 00:00 83 11/07/16 23:00 82 11/07/16 22:00 84 11/07/16 21:00 84 11/07/16 20:00 99.0 83 16 136/82 96 11/07/16 20:00 81 11/07/16 19:00 82 11/07/16 18:42 82 11/07/16 17:43 70 11/07/16 16:04 73 11/07/16 15:30 97.7 73 16 144/86 96 11/07/16 15:00 73 11/07/16 14:22 70 11/07/16 13:24 59 11/07/16 11/07/16 11/08/16 15:00 23:00 07:00 Intake Total 900 ml 720 ml Balance 900 ml 720 ml Intake Oral 900 ml 720 ml # Voids 4 2 # Bowel Movements 1 Result Diagram: 11/04/1661811/04/16618 Objective Remarks General: NAD, AAOx3 Chest: CTA Cardiac: Regular Abd: +BS, soft ND/NT Ext: No edema A/P Problem List: (1) Atrial fibrillation with RVR Status: Chronic Plan: - comgmt with Cardiology - Pt is a 66 y/o with A. fib RVR. This is the patients third hospitalization in the last month and a half for A. fib RVR. - He was hospitalized at [facility] 10/10-10/12/16 during which he had a Lexiscan on 10/12/16 which noted no reversible perfusion defects. Patient was discharged on oral Cardizem, Lopressor, and Eliquis during that admission. - Pt was admitted again 10/23-10/26 again with A. fib RVR and was given IV Cardizem with conversion to normal sinus rhythm. His dose of oral Cardizem was increased to 240 mg daily and metoprolol was stopped. Pt was seen by Dr. Diamond and was recommended to have evaluation by electrophysiology and possible EPS study with ablation per which was scheduled for November 16, 2016. He was continued on Eliquis. His KEESHA and diuretic were stopped to avoid hypotension. - Pt presented to the ED on 11/02/16 again with complaints of palpitations. He was given 20 mg of IV Cardizem by EMS prior to arrival for a heart rate of 170. He was given another 10 mg IV Cardizem in the ED and heart rate improved, however still irregular with a rate between 90 and 115 per the ED notes. Pt was started on a Cardizem gtt and pt converted to NSR. HR has been somewhat bradycardic into the 50's. - Pt has been seen by Dr. Beth and Dr. Sosa. - Pt started on Multaq 400mg BID, a few dose have been held d/t bradycardia. - Cardizem stopped - Eliquis - Telemetry (11/08/16) --> NSR 70-80 bpm - Case d/w Dr. Diamond (11/08/16). He will round on Mr. Carrasco this evening. - NPO after MN - EPS with possible ablation 11/09/16 - Supportive care - DVT prophylaxis (2) Hypertension Status: Chronic Plan: - BP is stable. - Monitor (3) Hyperlipidemia Status: Chronic Plan: - Cont. home meds (4) GERD (gastroesophageal reflux disease) Status: Chronic Plan: - PPI (5) Tobacco abuse Status: Chronic Plan: - Pt quit smoking about 3 weeks ago. Jaylen Menjivar DO Nov 08, 2016 12:58
[2016-11-08] MEDS ORDERED: LORazepam 1 MG TAB SL SCH (19:30)
--- NOTE | 2016-11-08 20:24 | MB ---
cc: JAMAAL WATTERS HANSCY M.D. Electrophysiology consultation. DATE OF CONSULTATION 11/08/2016 REASON FOR CONSULTATION Atrial fibrillation with rapid ventricular response unable to control with medications. HISTORY OF THE PRESENT ILLNESS Mr. Carrasco is a 66-year-old gentleman with a history of atrial fibrillation. He has previous hospitalization. The gentleman was on Multaq, Cardizem, metoprolol, flecainide. Despite that heart rate still unable to control. The gentleman was discharged home and re-admitted again for atrial fibrillation with rapid ventricular response. Anticoagulation was initiated around two weeks ago. He is on Eliquis. I was consulted for evaluation and management. This is a patient I previously evaluated around a week and a half to two weeks ago. The chart was reviewed. The patient was evaluated. ALLERGIES NONE REPORTED. SOCIAL HISTORY The gentleman was still smoking a week ago. FAMILY HISTORY Noncontributory to his current medical condition. MEDICATIONS Currently he is on: 1. Cardizem IV as needed. 2. Eliquis. 3. Lipitor. 4. Multaq. 5. Reglan. 6. Restoril. REVIEW OF SYSTEMS He refers currently no chest pain or chest discomfort. Some anxiety about the palpitations. No vomiting. No fever. PHYSICAL EXAMINATION GENERAL: Alert and fully oriented. VITAL SIGNS: Blood pressure is 130/79, pulse 76, respiratory rate 18. LUNGS: Ventilated. CARDIOVASCULAR: S1-S2. No gallops. No murmur. ABDOMEN: Soft. No mass. EXTREMITIES: No edema. Electrocardiogram on hospitalization shows atrial fibrillation. Telemetry currently shows sinus rhythm. LABORATORY DATA Hemoglobin is 15.5, white blood cell count 5.0. Potassium is 4.3. Creatinine is 0.92. Troponin less than 0.02. INR 1.0. ASSESSMENT AND RECOMMENDATIONS Mr. Carrasco has incessant episode of atrial fibrillation. Very difficult to control with medications. On Eliquis. He has [id number] maybe 1. He is on Eliquis. Recent left heart catheterization showed no significant occlusion and ejection fraction normal. At this point the best approach is electrophysiology study and ablation. Because the gentleman has incessant episode and multiple hospitalizations, despite less than 3 weeks on anticoagulation, ablation discussed. The risks, the nature and the benefits of the procedure were clearly stated to him. The risks include pneumothorax, cardiac perforation, stroke and even . He understands and agrees to proceed. The procedure will be performed during the hospitalization. The patient will be kept n.p.o. after midnight for procedure in the morning. MD ALEN Hurley/KK /7:33 PM /7:38 PM
[2016-11-08] MEDS: ATORVASTATIN 40 MG TAB PO SCH (21:25)
[2016-11-09] VITALS (21 sets, daily range): BP systolic 109–133; BP diastolic 64–85; PULSE 61–93; RESP 18–20; TEMP 97.4–98.6; O2SAT 93–96
[2016-11-09] MEDS: PANTOPRAZOLE SOD 40 MG DELAYED RELEASE TAB PO SCH (09:00)
[2016-11-09] MEDS: SODIUM CHLORIDE 0.9% FLUSH 10 ML FLUSH IV FLUSH SCH ×2 (09:00→20:43)
--- NOTE | 2016-11-09 09:02 | HHI.PR ---
Subjective Remarks doing ok. no complaints Objective Vitals heart reg lung cta abd s/nt ext no edema Vital Signs Date Time Temp Pulse Resp B/P Pulse Ox O2 Delivery O2 Flow Rate FiO2 11/09/16 06:00 67 11/09/16 05:00 68 11/09/16 04:00 97.7 80 18 128/80 96 11/09/16 04:00 75 11/09/16 03:00 68 11/09/16 02:00 74 11/09/16 01:00 74 11/09/16 00:00 97.8 61 18 109/64 96 11/09/16 00:00 72 11/08/16 23:00 62 11/08/16 22:00 70 11/08/16 21:00 70 11/08/16 20:00 97.7 76 20 124/78 96 11/08/16 20:00 76 11/08/16 19:00 76 11/08/16 18:11 80 11/08/16 17:00 76 11/08/16 16:00 76 11/08/16 15:45 98.8 81 20 130/79 96 11/08/16 15:00 80 11/08/16 14:12 74 11/08/16 13:07 65 11/08/16 12:05 65 11/08/16 11:25 97.8 78 16 109/72 96 11/08/16 11:00 75 11/08/16 10:00 76 11/08/16 09:00 74 11/08/16 11/08/16 11/09/16 15:00 23:00 07:00 Intake Total 920 ml 360 ml Balance 920 ml 360 ml Intake Oral 920 ml 360 ml # Voids 3 4 # Bowel Movements 1 A/P Problem List: (1) Atrial fibrillation with RVR Status: Chronic Plan: - Pt is a 66 y/o with A. fib RVR. This is the patients third hospitalization in the last month and a half for A. fib RVR. - He was hospitalized at [facility] 10/10-10/12/16 during which he had a Lexiscan on 10/12/16 which noted no reversible perfusion defects. Patient was discharged on oral Cardizem, Lopressor, and Eliquis during that admission. - Pt was admitted again 10/23-6/26 again with A. fib RVR and was given IV Cardizem with conversion to normal sinus rhythm. His dose of oral Cardizem was increased to 240 mg daily and metoprolol was stopped. Pt was seen by Dr. Diamond and was recommended to have evaluation by electrophysiology and possible EPS study with ablation per which was scheduled for November 16, 2016. He was continued on Eliquis. His KEESHA and diuretic were stopped to avoid hypotension. - Pt presented to the ED on 11/02/16 again with complaints of palpitations. He was given 20 mg of IV Cardizem by EMS prior to arrival for a heart rate of 170. He was given another 10 mg IV Cardizem in the ED and heart rate improved, however still irregular with a rate between 90 and 115 per the ED notes. Pt was started on a Cardizem gtt and pt converted to NSR. HR has been somewhat bradycardic into the 50's. - Pt has been seen by Dr. Beth and Dr. Sosa. - Pt started on Multaq 400mg BID, a few dose have been held d/t bradycardia. - Cardizem stopped - Petey Diamond to do EPS today (2) Hypertension Status: Chronic Plan: - BP is stable. - Monitor (3) Hyperlipidemia Status: Chronic Plan: - Cont. home meds (4) GERD (gastroesophageal reflux disease) Status: Chronic Plan: - PPI (5) Tobacco abuse Status: Chronic Plan: - Pt quit smoking about 3 weeks ago. Moises Mcdaniel MD Nov 09, 2016 09:02
[2016-11-09] MEDS ORDERED: METOCLOPRAMIDE HCL 10 MG/2 ML VIAL IV PRN (11:45)
[2016-11-09] MEDS ORDERED: LORazepam 2 MG/ML VIAL IV PRN (11:45)
[2016-11-09] MEDS ORDERED: LIDOCAINE HCL 1% 50 ML VIAL INFIL PRN (11:45)
[2016-11-09] MEDS ORDERED: BACITRACIN OINT 0.9 GM PKT TOP ONE (11:45)
[2016-11-09] MEDS ORDERED: oxyCODONE/ACETAMINOPHEN 5 MG/325 MG TAB PO PRN (11:45)
[2016-11-09] MEDS ORDERED: SODIUM CHLOR 0.9% 250 ML INJ 250 ML IV PRN (11:45)
[2016-11-09] MEDS ORDERED: ATROPINE SULFATE 1 MG/ML VIAL IV PRN (11:45)
--- NOTE | 2016-11-09 12:21 | CATHPROC ---
[employer] HIS Report Study Information Study Number Scheduled Start Study Start [id number] 11/09/2016 Nov 09 2016 8:11AM Referring Institution Admit Source Facility Department 1 Other [facility] - Parachute Panel Joiner Physician and Clinical Staff Initial Maria T Blas Habilitation Training Specialist Sterling Best,RT(R) Other Anesthesia, LOFT WORKER PILE DRIVING Recorder Maria Esther Paredes,RN Scrub Sharmaine Kulkarni,DOCUMENT IMPROVEMENT SPECIALIST TECH2 Procedures Performed Procedure Location (Site) Vessel Name Ablation Procedure ICE CATHETER INSERT RA Atruim RF Ablation LT. ATRIUM LT. ATRIUM Equipment Time Electric Power Machine Operator Description Size Mfg Part Number Used/Scraped NEEDLE, TRANSSEPTAL NRG 98 09:37 [facility] [id number] Used C1 [employer]/ EP 09:37 KIT, TRANSDUCER / AFIB [id number] Used PACER [id number] CATHETER, TACTICATH ABLAT BUNDLE 09:37 [facility] Used 65 BUNDLE *[id number] BUNDLE [id number] CATHETER, FR7 OPTIMA SPIRAL 09:37 [facility] FR7 *[id number] Used BUNDLE BUNDLE [id number] 09:37 [facility] CATHETER, JSN, QUAD BUNDLE FR 5 *[id number] Used BUNDLE [id number] 09:37 [facility]UN[facility] CATHETER, JSN, QUAD BUNDLE FR 5 *[id number]- Used BUNDLE [id number] SET, COOL POINT TUBING 09:37 BUND[facility] *[id number]- Used BUNDLE BUNDLE SHEATH, FR8.5 STEERABLE SM 09:37 BUN[facility] 71CM [id number] Used 71CM BUNDLE COVER, TRANSDUCER CABLE 09:37 [employer] [id number] Used ACUNAV 09:37 CORDIS/PACER SHEATH, FR10 EVELYN 11CM FR 10 [id number] Used 09:37 CORDIS/PACER SHEATH, FR9 EVELYN 11CM FR 9 [id number] Used [id number] 09:37 [employer] INDUSTRIES PACK, CCL CUSTOM * Used *[id number] 09:37 [employer] PACER GARCIA, LIMB * 2530 *[id number] Used [id number] 09:37 [employer] MEDICAL SHEATH, FR4.5 PRELUDE 11CM FR 4.5 Used [id number] 09:37 NAMIC TUBING, HIGH PRESSURE 48" 48" Used *[id number] 09:37 NAMIC TUBING, HIGH PRESSURE 48" 48" Used *[id number] 09:37 [employer] MEDICAL BLANKET,WARM AIR CCL * Used *[id number] CATHETER, TACTICATH ABLAT [id number] 10:32 [facility] Used 65 *[id number] 09:37 [facility] MEDICAL ELECTRODE KIT, CRESENCIO X SURFACE * [id number] Used 09:37 [facility] MEDICAL SHEATH, EPS, FR6 FAST CATH FR 6 [id number] Used 09:37 [facility] MEDICAL SHEATH, EPS, FR7 FAST CATH FR 7 [id number] Used 09:37 [facility] MEDICAL SHEATH, EPS, FR8 FAST CATH FR 8 [id number] Used [facility] PAD, ELECTROSURGICAL 09:37 * [id number] *[id number] Used SURGICAL GROUNDING (BLUE) History: Risk Factors Hypertension Dyslipidemia Yes Yes Chronic Lung Disease Labs Hgb (g/dl) Hct (%) RBC (MIL/MM3) WBC (l/cumm) Platelets (thousands) 11.60-17.00 35.00-51.00 4.00-5.90 4.00-11.00 150.00-450.00 15.0 42 5 4.4 206 Glucose (mg/dl) BUN (mg/dl) Creatinine (mg/dl) BUN:Creatinine (1:x) 74.00-106.00 7.00-18.00 0.50-1.30 10.00-20.00 90 13 0.9 14.4 Na (meq/l) K (meq/l) 136.00-145.00 3.50-5.10 139 4.3 INR (PTT:PT) 0.90-1.10 1 Medication Medication Total Dose (Bolus/Oral) Medication Total Dosage/Unit 1% XYLOCAINE 40 mL HEPARIN 27297 units Medications (Bolus/Oral) Medication Time Given Dosage/Unit Administered By Reason 1% XYLOCAINE 11/09/2016 10:05:05 AM 20 mL Maria T Diamond 20 mL 1% XYLOCAINE given in lab by Maria T Diamond in Left Groin via Subcutaneous. 1% XYLOCAINE 11/09/2016 10:08:52 AM 20 mL Maria T Diamond 20 mL 1% XYLOCAINE given in lab by Maria T Diamond in Right Groin via Subcutaneous. HEPARIN 11/09/2016 10:21:04 AM 97933 units Anesthesia, LOFT WORKER PILE DRIVING As per physicians verbal order 02305 units HEPARIN given in lab by Anesthesia, LOFT WORKER PILE DRIVING via Peripheral IV. Ordered by Maria T Diamond. Priscila son: As per physicians verbal order. HEPARIN 11/09/2016 10:34:30 AM 2000 units Anesthesia, LOFT WORKER PILE DRIVING 2000 units HEPARIN given in lab by Anesthesia, LOFT WORKER PILE DRIVING via Peripheral IV. Ordered by Maria T Diamond. Medication (Drip) Medication Time Given Dosage/Unit Concentration/Unit Diluent (ml) Solution HEPARIN DRIP 11/09/2016 10:35:42 AM 1000 units/hr 19029 units 250 D5W 1000 units/hr HEPARIN DRIP given in lab by Anesthesia, LOFT WORKER PILE DRIVING via Peripheral IV. Pump/Drip Flow = 10 ml /hr using D5[place] [address] units in 250 ml. Ordered by Maria T Diamond. ISUPREL 11/09/2016 11:21:24 AM 20 mcg/min 1 mg 250 NaCl .9 20 mcg/min ISUPREL given in lab by Anesthesia, LOFT WORKER PILE DRIVING via Peripheral IV. Pump/Drip Flow = 300 ml/hr usi ng NaCl .9 with a concentration of 1 mg in 250 ml. Ordered by Maria T Diamond. LEVAQUIN 11/09/2016 9:47:46 AM 100 mL/hr 500 100 NaCl .9 100 mL/hr LEVAQUIN given in lab by Anesthesia, LOFT WORKER PILE DRIVING via Peripheral IV. Pump/Drip Flow = 0 ml/hr using NaCl .9 with a concentration of 500 in 100 ml. Ordered by Maria T Diamond. Reason: As per physicians verbal order. vincent insertion Initial Case Assessment Cardiovascular HR Rhythm NIBP Chest Pain 80 sr 166/95 0 Edema Present Skin color Skin None Normal Warm Dry Circulatory - Right Pulses Dorsalis Pedis 3 Scale (0,1,2,3,4,d) Circulatory - Left Pulses Dorsalis Pedis 3 Scale (0,1,2,3,4,d) Circulatory - Lower Extremities Color Lower Right Color Lower Left Normal Normal Neurological State Oriented to time-place- Alert Moves all extremities person Respiration - General Respiration Rate SpO2 (%) (B/min) 20 95 Final Case Assessment Cardiovascular HR Rhythm NIBP Chest Pain 84 REGULAR 179/101 0 Edema Present Skin color Skin None Normal Warm Dry Circulatory - Right Pulses Dorsalis Pedis 3 Scale (0,1,2,3,4,d) Circulatory - Left Pulses Dorsalis Pedis 3 Scale (0,1,2,3,4,d) Neurological State Oriented to time-place- Alert Moves all extremities person Respiration - General Respiration Rate SpO2 (%) O2 (lpm) (B/min) 18 96 4 Chronological Log Time Study Chronological Log 9:08:41 Patient arrived via Bed. 9:08:42 Patient Name, D.O.B, / Armband Verified By R.N. 9:08:43 Consent signed by the physician and the patient and verified by the Parachute Panel Joiner staff. 9:12:57 Pre-op and post- op instructions given; patient acknowledges understanding of instructions. 9:13:00 Verbal Stimulation=2 Physical Stimulation=2 Airway=2 Respiration=2 TOTAL=8. (0=absent, 1=li mited, 2=present) 9:13:12 Patient has been NPO for More than 6Hrs. 9:13:14 Skin Breakdown- none per pt 9:13:22 Patient Warmer Placed on the Table. 9:13:23 Disposable Defibrillator Pads Placed On Patient. 9:13:24 Dorita Prominences Protected 9:13:26 A # 20 IV was noted in the Wrist (left). Grade = 0 0.9ns kvo 9:13:27 A # 20 IV was noted in the Forearm (right). Grade = 0 0.9ns kvo 9:13:28 History and physical on the chart or being dictated. Assessment: Initial Case, HR=80 BPM, Rhythm=sr, FMTH=934/95 mmhg, Chest Pain=0, Edema=None, Col or=Normal, Skin = Warm, Dry Right Pulses: Azar Ped=3 Left Pulses: Azar Ped=3 9:26:07 Lower Right Extremities: Color=Normal Lower Left Extremities: Color=Normal Neurological: State=Alert, Ox3, TOBIAS Respiration: Resp=20 B/min, SpO2=95 % 9:28:55 Table restraints applied according to hospital policy 9:30:45 Anesthesia at bedside. Assumes care of patient. 9:33:40 Reference ECG taken 9:45:20 Anesthesiologist present for intubation. 14 Fr vincent inserted w/o difficulty. Clear yellow u rine obtained. 100 mL/hr LEVAQUIN given in lab by Anesthesia, LOFT WORKER PILE DRIVING via Peripheral IV. Pump/Drip Flow = 0 ml/hr using NaCl .9 with 9:47:46 a concentration of 500 in 100 ml. Ordered by Maria T Diamond. Reason: As per physicians verbal or ree. vincent insertion 9:48:25 Bilateral groins prepped with 2% chlorhexidine, and with a 3 min. waiting time. 9:51:00 MD paged 9:52:03 MD responded 9:58:33 MD arrived. Time Out. Correct patient, procedure, procedure equipment, site and side verified with physicia n present. Time 10:00:00 concurred by MD, individual staff and LOFT WORKER PILE DRIVING. Time Out #2 - Consents verified, patient in correct position, all results are labled and displa yed, safety precautions 10:00:28 taken, antibiotics administered. Time out concurred by MD, individual staff and LOFT WORKER PILE DRIVING in procedu re 10:00:48 Case Start 10:00:51 YEISON in progress 10:04:25 Yeison complete 10:05:05 20 mL 1% XYLOCAINE given in lab by Maria T Diamond in Left Groin via Subcutaneous. 10:05:48 Vascular access was obtained in the Fem Vein (left). 10:05:50 Vascular access was obtained in the Fem Vein (left). 10:05:55 Vascular access was obtained in the Fem Vein (left). 10:06:03 Vascular access was obtained in the Fem Art (left). A SHEATH, FR4.5 PRELUDE 11CM FR 4.5 was advanced into the Fem Art (left) using the Modified Angle mera technique. 10:06:34 0.9ns pressure bag connected. 10:07:05 A SHEATH, EPS, FR6 FAST CATH FR 6 was advanced into the Fem Vein (left) using the Modified Seldinger technique. 10:07:19 A SHEATH, EPS, FR7 FAST CATH FR 7 was advanced into the Fem Vein (left) using the Modified Seldinger technique. 10:07:57 A SHEATH, FR10 EVELYN 11CM FR 10 was advanced into the Fem Vein (left) using the Modified S eldinger technique. 10:08:52 20 mL 1% XYLOCAINE given in lab by Maria T Diamond in Right Groin via Subcutaneous. 10:10:02 Vascular access was obtained in the Fem Vein (right). 10:11:16 A SHEATH, EPS, FR8 FAST CATH FR 8 was advanced into the Fem Vein (right) using the Modified Seldinger technique. A CATHETER, JSN, QUAD BUNDLE FR 5 was advanced vis Fem Vein (left) and placed in the CS. Placem ent was visually 10:13:44 confirmed under fluoroscopy. A CATHETER, JSN, QUAD BUNDLE FR 5 was advanced vis Fem Vein (left) and placed in the HIS. Place ment was 10:13:54 visually confirmed under fluoroscopy. 10:15:36 ice catheter Was Postioned. A SHEATH, FR8.5 STEERABLE SM 71CM BUNDLE 71CM was exchanged in the Fem Vein (right). This was n ecessary in 10:15:56 order for catheter support. 10:16:45 BAYLIS IN FEM VEIN RIGHT 10:20:26 A eps was advanced to the right atrium and passed through the septal wall to the left atriu [place]. 21273 units HEPARIN given in lab by Anesthesia, LOFT WORKER PILE DRIVING via Peripheral IV. Ordered by Eugene Diamond Reason: As per 10:21:04 physicians verbal order. 10:21:09 BAYLIS OUT A CATHETER, FR7 OPTIMA SPIRAL BUNDLE FR7 was advanced vis Fem Vein (right) and placed in the LA . Placement 10:22:29 was visually confirmed under fluoroscopy. MAPPING IN PROGRESS 10:27:29 Activated Clotting Time Drawn 10:30:42 MAPPING COMPLETE. SPIRAL Catheter was removed A CATHETER, TACTICATH ABLAT 65 was advanced vis Fem Vein (right) and placed in the LA. Placemen t was visually 10:31:33 confirmed under fluoroscopy. 10:34:13 ACT (Normal Range 90-180) = 314 10:34:30 2000 units HEPARIN given in lab by Anesthesia, LOFT WORKER PILE DRIVING via Peripheral IV. Ordered by Shad Diamond 1000 units/hr HEPARIN DRIP given in lab by Anesthesia, LOFT WORKER PILE DRIVING via Peripheral IV. Pump/Drip Flow = 10 ml/hr using 10:35:42 [place] [address] units in 250 ml. Ordered by Hanscy. Lobo 10:36:35 RF Ablation of the LT. ATRIUM with a eps. 10:41:40 Activated Clotting Time Drawn 10:50:34 ACT (Normal Range 90-180) = 351 11:09:01 ABL Catheter was removed A CATHETER, FR7 OPTIMA SPIRAL BUNDLE FR7 was advanced vis Fem Vein (right) and placed in the LA . Placement 11:09:10 was visually confirmed under fluoroscopy. A CATHETER, TACTICATH ABLAT 65 was advanced vis Fem Vein (right) and placed in the LA. Placemen t was visually 11:13:00 confirmed under fluoroscopy. 11:13:32 RF Ablation of the LT. ATRIUM with a eps. 11:16:25 Activated Clotting Time Drawn 11:21:13 ABLATION COMPLETE 20 mcg/min ISUPREL given in lab by Anesthesia, LOFT WORKER PILE DRIVING via Peripheral IV. Pump/Drip Flow = 300 ml/ hr using NaCl .9 11:21:24 with a concentration of 1 mg in 250 ml. Ordered by Maria T Diamond. 11:26:12 ACT (Normal Range 90-180) = 342 11:30:12 ISUPREL OFF 11:34:08 Catheter(s) removed without difficulty 11:34:27 Ablation procedure performed: AFIB. 11:34:32 EP Procedure was performed. 11:34:48 Case End 11:34:51 No case complications noted. 11:34:55 Bedside Report will be given. 11:34:58 PACU called. Spoke to JESSEE 11:35:00 Bedside Report will be given. 11:35:06 Defibrillator and ground pads removed. Skin intact. 11:35:16 40MG PROTAMINE IV GIVEN BY LOFT WORKER PILE DRIVING. 11:44:00 Activated Clotting Time Drawn 11:52:41 ACT (Normal Range 90-180) = 141 11:52:48 Sheath removed; pressure applied to access site. DC to right groin. DB to left groin. Assessment: Final Case, HR=84 BPM, Rhythm=REGULAR, UBWB=217/101 mmhg, Chest Pain=0, Edema=None, Color=Normal, Skin = Warm, Dry Right Pulses: Azar Ped=3 12:00:56 Left Pulses: Azar Ped=3 Neurological: State=Alert, Ox3, TOBIAS Respiration: Resp=18 B/min, SpO2=96 %, O2=4 lpm 12:11:22 Cine recording checked. 12:11:33 Verbal Stimulation=2 Physical Stimulation=2 Airway=2 Respiration=2 TOTAL=8. (0=absent, 1=li mited, 2=present) 12:20:00 Sterile dressings applied to sites. Bilateral groins wnl. 12:25:29 Patient moved to the [facility] End Study - Contrast Media Used In Study Contrast Total Opened (mL) Total Used (mL) Total Wasted (mL) Unspecified 0 0 0 End Study - Maximum Contrast Load Max Contrast Load (mL) 416.7 End Study - Radiation Exposure Fluoro Time (minutes) 1.1 End Study - Sheaths Sheaths Pulled By Sheath Hold Time (min) Sterling Best 20 End Study - Patient Disposition Complications Transferred To Interventional Outcome No Telemetry Bed successful
[2016-11-09] MEDS ORDERED: DO NOT ADM ANY ANTICOAGULANT DRUGS PRN (12:34)
[2016-11-09] MEDS: ONDANSETRON HCL 4 MG/2 ML VIAL IV PRN (13:00)
[2016-11-09] MEDS: oxyCODONE/ACETAMINOPHEN 5 MG/325 MG TAB PO PRN (14:51)
[2016-11-09] MEDS ORDERED: PROPOFOL 200 MG/20 ML AMP IV ONE (15:54)
[2016-11-09] MEDS: ATORVASTATIN 40 MG TAB PO SCH (20:43)
[2016-11-09] MEDS: APIXABAN 5 MG TABLET PO SCH (20:43)
[2016-11-09] MEDS: METOPROLOL SUCCINATE 25 MG EXTENDED RELEASE TAB PO SCH (20:46)
[2016-11-09] MEDS: ACETAMINOPHEN 325 MG TAB PO PRN (23:52)
[2016-11-10] VITALS (10 sets, daily range): BP systolic 123–148; BP diastolic 73–88; PULSE 60–78; RESP 20; TEMP 97.4–97.7; O2SAT 93–97
[2016-11-10] MEDS: oxyCODONE/ACETAMINOPHEN 5 MG/325 MG TAB PO PRN (02:52)
[2016-11-10] MEDS: ONDANSETRON HCL 4 MG/2 ML VIAL IV PRN (03:15)
[2016-11-10] MEDS: CALCIUM CARBONATE 500 MG CHEWABLE TAB CHEW PRN (03:17)
[2016-11-10 06:14] LABS: APTT (PATIENT) 29.4 SEC (24.3-30.1); PROTHROMBIN TIME - PATIENT 10.9 SEC (9.8-11.6)
--- NOTE | 2016-11-10 08:25 | PD.CARD ---
Atrial Fibrillation Ablation PROCEDURE DATE: Nov 09, 2016 PROCEDURES PERFORMED: 1. Electrophysiology study on Isuprel infusion 2. CS cannulation 3. 3-D mapping 4. Transseptal approach 5. Right and left heart catheterization 6. Intracardiac echo 7. Radiofrequency ablation of atrial fibrillation 8. Pulmonary vein isolation 9. Posterior wall ablation 10. Mitral line creation 11. Anterior wall ablation INDICATIONS FOR THE PROCEDURE Mr. Carrasco is a 66-year-old male with recurrent episodes of atrial fibrillation despite multiple medications, very symptomatic, referred for electrophysiology study and ablation. The risks, the nature and the benefits of the procedure were clearly stated to him. The risks include pneumothorax, cardiac perforation, stroke, need for open heart surgery and even . The patient understood and agreed to proceed. DESCRIPTION OF THE PROCEDURE IN DETAIL As written informed consent was obtained prior to esophageal echocardiogram, the patient was kept on the table where he was prepped and draped in the usual sterile fashion. Conscious sedation was initiated and maintained throughout the procedure by the anesthesiologist. Once sedation was verified, the right and left inguinal areas were anesthetized with 2% Xylocaine. Using modified Seldinger technique, the left femoral vein was cannulated on three occasions, three guidewires were advanced. Over the wire a 6, 7 and a 10-[place] Hemaquet were advanced. Then the left femoral artery was cannulated on one occasion, one guidewire was advanced. Over the wire a 4-[place] Hemaquet was advanced. Then the right femoral vein was cannulated on one occasion, one guidewire was advanced. Over the wire a 8-[place] Hemaquet was advanced. Then under fluoroscopic guidance through the 6 and 7-[place]icar[place] Hemaquet, two 5-[place]icaraguan Kwasi curved quadripolar electrophysiology catheters were advanced and placed around the His as well as coronary sinus. Basic interval was measured. The patient was in sinus rhythm. Through the 10-[place] Hemaquet, a Cordis Ybarra AcuNav intracardiac echo catheter was advanced and placed at the right atrium. Multiple view was obtained. There is pericardial effusion, pulmonary vein was seen, atrial septal was visualized. Then the 8-[place] Hemaquet in the right femoral vein was exchanged for Agilis transseptal sheath that was placed all the way to the superior vena cava. Through the sheath a Zachary needle was advanced, then the sheath, the dilator and the needle were progressed until foci engaged. Once engaged, the needle was advanced. RF was delivered for 2 seconds. I was able to cross into the left atrium. Once the needle crossed, the dilator was advanced. Once the dilator crossed, the sheath was advanced. Once the sheath crossed, the dilator and the needle were removed. At this point I did flood the system and fluid movement was seen in the left atrium the indicates the sheath is in good position. The patient already received 10,000 units of heparin. The goal is to keep an ACT around 350 during ablation. Then through the sheath a [place]. Gil 20 pulse circumferential catheter was advanced. Using [employer] endocardial solution mapping system, a two-dimensional configuration of the left atrium was obtained. Points were taken at the left superior and inferior veins, right superior and inferior veins, mitral valve, and appendages. Then through the sheath a St. Gil TactiCath 65cm 3.5mm irrigated tipped mapping and radiofrequency ablation catheter was advanced. Esophageal probe was placed temperature monitoring during ablation. When it increased to 0.5 degrees Celsius above baseline, I moved to a different area of the atrium. First I did isolate the left superior and inferior vein. I did make a [place] around the veins. Posterior was ablated. A mitral line was created. Then , I did proceed with right superior and inferior veins isolation. Posterior and anterior wall were ablated. At that point I did advance the circumferential catheter again into the vein. There was no signal into the vein, pacing from the vein showed no conduction to the atrium. At the beginning of the case, the veins were very active. Isuprel infusion was initiated at 20 mcg for 10 minutes. No tachyarrhythmia was induced , post Isuprel no tachyarrhythmia was induced. At that point the procedure was complete. All catheters were removed, atrial septal sheath was exchanged for 9- [place] Hemaquet, intracardiac echo showed no pericardial effusion. There is still good flow in the pulmonary vein. The patient is going to be transferred to the recovery room. No incident report. The patient tolerated the procedure. Blood loss was minimal. FINDINGS 1. Electrocardiogram: At baseline the patient was in sinus rhythm. post procedure electrocardiogram was unchanged. 2. Basic interval: Base cycle length was around 840ms. AH at 80 and HV at 50 milliseconds. 3. Tachyarrhythmia: Atrial fibrillation was mapped and ablated. The ablation was successful. CONCLUSION Successful electrophysiology study, mapping, radiofrequency ablation of atrial fibrillation, left atrial tachycardia, pulmonary vein isolation, posterior ablation, mitral line creation. COMMENTS AND RECOMMENDATIONS The patient is going to be transferred to the telemetry unit. Will be observed and when stable can be discharged home. Maria T Dimaond MD Nov 10, 2016 08:25
--- NOTE | 2016-11-10 08:53 | HHI.PR ---
Subjective Remarks doing ok. eager for d/c Objective Vitals heart reg lung cta abd /st ext no edema Vital Signs Date Time Temp Pulse Resp B/P Pulse Ox O2 Delivery O2 Flow Rate FiO2 11/10/16 06:00 70 11/10/16 05:00 60 11/10/16 04:00 97.4 68 20 148/82 94 11/10/16 04:00 64 11/10/16 03:00 68 11/10/16 02:00 66 11/10/16 01:00 66 11/10/16 00:00 97.7 78 20 123/73 93 11/10/16 00:00 72 11/09/16 23:00 72 11/09/16 22:00 80 11/09/16 21:00 74 11/09/16 20:00 97.4 74 20 124/75 95 11/09/16 20:00 74 11/09/16 19:00 72 11/09/16 18:00 76 11/09/16 17:00 89 11/09/16 16:00 90 11/09/16 15:08 98.6 93 18 133/80 93 11/09/16 13:30 97.0 74 18 122/80 94 Nasal Cannula 2 11/09/16 13:15 74 18 130/86 92 Nasal Cannula 2 11/09/16 13:13 75 11/09/16 13:00 75 19 125/84 93 Nasal Cannula 2 11/09/16 12:45 75 19 124/81 95 Nasal Cannula 2 11/09/16 12:35 97.5 76 16 127/77 96 Nasal Cannula 3 11/09/16 10:00 68 11/09/16 09:20 71 11/09/16 11/09/16 11/10/16 15:00 23:00 07:00 Intake Total 2400 ml 2240 ml 680 ml Output Total 1900 ml 1700 ml 200 ml Balance 500 ml 540 ml 480 ml Intake Oral 740 ml 680 ml IV Total 400 ml 1500 ml Other 2000 ml Output Urine Total 1900 ml 1700 ml 200 ml # Voids 1 # Bowel Movements 0 A/P Problem List: (1) Atrial fibrillation with RVR Status: Chronic Plan: - Pt is a 66 y/o with A. fib RVR. This is the patients third hospitalization in the last month and a half for A. fib RVR. - He was hospitalized at [place] 10/10-10/12/16 during which he had a Lexiscan on 10/12/16 which noted no reversible perfusion defects. Patient was discharged on oral Cardizem, Lopressor, and Eliquis during that admission. - Pt was admitted again 10/23-10/26 again with A. fib RVR and was given IV Cardizem with conversion to normal sinus rhythm. His dose of oral Cardizem was increased to 240 mg daily and metoprolol was stopped. Pt was seen by Dr. Diamond and was recommended to have evaluation by electrophysiology and possible EPS study with ablation per which was scheduled for November 16, 2016. He was continued on Eliquis. His KEESHA and diuretic were stopped to avoid hypotension. - Pt presented to the ED on 11/02/16 again with complaints of palpitations. He was given 20 mg of IV Cardizem by EMS prior to arrival for a heart rate of 170. He was given another 10 mg IV Cardizem in the ED and heart rate improved, however still irregular with a rate between 90 and 115 per the ED notes. Pt was started on a Cardizem gtt and pt converted to NSR. HR has been somewhat bradycardic into the 50's. - Pt started on Multaq 400mg BID, a few dose have been held d/t bradycardia. - Cardizem stopped - Eliquis s/p EPS 11/09 Dr Diamond. s/p ablation. spoke with dr Diamond today. ok for d/c and f/u (2) Hypertension Status: Chronic Plan: - BP is stable. - Monitor (3) Hyperlipidemia Status: Chronic Plan: - Cont. home meds (4) GERD (gastroesophageal reflux disease) Status: Chronic Plan: - PPI (5) Tobacco abuse Status: Chronic Plan: - Pt quit smoking about 3 weeks ago. Moises Mcdaniel MD Nov 10, 2016 08:53
[2016-11-10] MEDS ORDERED: PANT40TA3 PO ×2 (08:54→08:55)
[2016-11-10] MEDS ORDERED: METO25TA6 PO ×2 (08:54→08:55)
[2016-11-10] MEDS ORDERED: LISI10TA3 PO (08:58)
[2016-11-10] MEDS: SODIUM CHLORIDE 0.9% FLUSH 10 ML FLUSH IV FLUSH SCH (09:00)
[2016-11-10] MEDS: APIXABAN 5 MG TABLET PO SCH (09:31)
[2016-11-10] MEDS: PANTOPRAZOLE SOD 40 MG DELAYED RELEASE TAB PO SCH (09:31)
[2016-11-10] MEDS: METOPROLOL SUCCINATE 25 MG EXTENDED RELEASE TAB PO SCH (09:31)
--- NOTE | 2016-11-10 09:56 | EKG ---
Date Performed: 11/10/2016 Time Performed: 05:50:56 PTAGE: 66 years EKG: Sinus rhythm Compared to prior tracing no significant change Normal ECG PREVIOUS TRACING : 11/09/2016 13.13 DOCTOR: Ronaldo Andrade Interpretating Date/Time 11/10/2016 09:51:02
--- NOTE | 2016-11-10 10:14 | EKG ---
Date Performed: 11/09/2016 Time Performed: 13:13:59 PTAGE: 66 years EKG: Sinus rhythm NORMAL ECG PREVIOUS TRACING : 11/02/2016 19.01 Patient is no longer in atrial fibrillation compared to the prior tracing. DOCTOR: Ronaldo Andrade Interpretating Date/Time 11/10/2016 10:13:39
--- NOTE | 2016-11-10 11:57 | HHI.PR ---
Subjective Remarks Feeling better. No more palpitation Objective Vital Signs Date Time Temp Pulse Resp B/P Pulse Ox O2 Delivery O2 Flow Rate FiO2 11/10/16 09:00 62 11/10/16 08:00 97.6 67 20 139/88 97 11/10/16 08:00 62 11/10/16 07:00 62 11/10/16 06:00 70 11/10/16 05:00 60 11/10/16 04:00 97.4 68 20 148/82 94 11/10/16 04:00 64 11/10/16 03:00 68 11/10/16 02:00 66 11/10/16 01:00 66 11/10/16 00:00 97.7 78 20 123/73 93 11/10/16 00:00 72 11/09/16 23:00 72 11/09/16 22:00 80 11/09/16 21:00 74 11/09/16 20:00 97.4 74 20 124/75 95 11/09/16 20:00 74 11/09/16 19:00 72 11/09/16 18:00 76 11/09/16 17:00 89 11/09/16 16:00 90 11/09/16 15:08 98.6 93 18 133/80 93 11/09/16 13:30 97.0 74 18 122/80 94 Nasal Cannula 2 11/09/16 13:15 74 18 130/86 92 Nasal Cannula 2 11/09/16 13:13 75 11/09/16 13:00 75 19 125/84 93 Nasal Cannula 2 11/09/16 12:45 75 19 124/81 95 Nasal Cannula 2 11/09/16 12:35 97.5 76 16 127/77 96 Nasal Cannula 3 I/O 11/09/16 11/09/16 11/09/16 11/10/16 11/10/16 11/10/16 07:00 15:00 23:00 07:00 15:00 23:00 Intake Total 360 ml 2400 ml 2240 ml 680 ml Output Total 1900 ml 1700 ml 200 ml Balance 360 ml 500 ml 540 ml 480 ml Intake Oral 360 ml 740 ml 680 ml IV Total 400 ml 1500 ml Other 2000 ml Output Urine Total 1900 ml 1700 ml 200 ml # Voids 4 1 # Bowel Movements 0 Imaging Alert, fully oriented Lungs: ventilated Heart: S1, S2 regular, no gallop Abdomen: soft, no mass Ext: no edema Assessment and Plan Problem List: (1) Atrial fibrillation with RVR Status: Chronic Plan: SP ablation. Doing well In sinus rhythm. No tachy reported Can be DH Follow up in 3 weeks (2) Hypertension Status: Chronic Plan: SBP 139. Maria T Diamond MD Nov 10, 2016 11:57
== END 2016-11-10 11:22 | disposition home or self-care (01) | DRG 274 ==
LOC: NEPE 18:52 → NEDA 20:29 → HCIS 22:05
PROVIDERS: ADMIT Hospitalist; ATTEND Hospitalist
PROC: 02583ZZ Destruction of Conduction Mechanism, Percutaneous Approach (ICD-10-PCS; principal; 2016-11-10)
PROC: 4A023FZ Measurement of Cardiac Rhythm, Percutaneous Approach (ICD-10-PCS; 2016-11-10)
PROC: 4A0234Z Measurement of Cardiac Electrical Activity, Percutaneous Approach (ICD-10-PCS; 2016-11-10)
PROC: 02K83ZZ Map Conduction Mechanism, Percutaneous Approach (ICD-10-PCS; 2016-11-10)
PROC: B246ZZZ Ultrasonography of Right and Left Heart (ICD-10-PCS; 2016-11-10)
PROC: 4A023N8 Measurement of Cardiac Sampling and Pressure, Bilateral, Percutaneous Approach (ICD-10-PCS; 2016-11-10)
DX: I48.0 Paroxysmal atrial fibrillation (principal); I10 Essential (primary) hypertension; J44.9 Chronic obstructive pulmonary disease, unspecified; F41.9 Anxiety disorder, unspecified; Z87.891 Personal history of nicotine dependence; E78.00 Pure hypercholesterolemia, unspecified; K21.9 Gastro-esophageal reflux disease without esophagitis; E78.5 Hyperlipidemia, unspecified; N52.9 Male erectile dysfunction, unspecified; Z85.46 Personal history of malignant neoplasm of prostate; Z92.3 Personal history of irradiation; R00.1 Bradycardia, unspecified; Z79.02 Long term (current) use of antithrombotics/antiplatelets
CPT/HCPCS: 80048; 82550; 83735; 84484; 85002; 85025; 85610; 85730; 93005; 93613; 93623; 93656; 93662; 96374; C1730; C1731; C1732; C1759; C1766; C2630; J2405; J2765; J3010

== ENCOUNTER 2016-11-14 20:16 | Emergency (ER) | payer OTHER ==
[~2016-11-14] VITALS: Ht 177.8 cm; Wt 74.0 kg
[~2016-11-14 20:16] MED LIST changes: -CARD240C6 PO; +LISI10TA3 PO; +METO25TA6 PO; +PANT40TA3 PO
[2016-11-14 20:18] VITALS: BP 179/102; PULSE 120; RESP 18; TEMP 97.8; O2SAT 98
[2016-11-14] MEDS ORDERED: SODIUM CHLORIDE 0.9% FLUSH 10 ML FLUSH IVF PRN (21:00)
[2016-11-14 21:05] VITALS: RESP 16; O2SAT 98
--- NOTE | 2016-11-14 21:06 | PD ---
HPI Chief Complaint: Cardiac Complaint Time Seen by Provider: 21:04 Travel History International Travel<30 days: No Contact w/Intl Traveler<30days: No History of Present Illness HPI 66-year-old male presents to the emergency department for evaluation of palpitations, heart racing. Patient has history A. fib RVR, hypertension, COPD , hyperlipidemia. Patient's history tobacco use. Patient has been hospitalized 3 times in the past month for A. fib with RVR. Patient recently had ablation done on November 09, [address] Diamond. Patient had a Lexiscan on October 12, 2016 which noted no reversible perfusion deficits. He states he recently followed-up with Dr. Young a few days ago and everything was doing well. Patient states his Cardizem was stopped after ablation. He is currently on metoprolol, eliquis, lisinopril, protonix, atorvastatin. Patient reports left-sided chest pain that he states he gets when he gets in A. fib RVR. He states it is a aching pain. No shortness of breath. He states he is going to the [employer] concert when he suddenly felt his heart racing. Patient denies any abdominal pain. No nausea, vomiting, diarrhea. Patient does appear well on exam. PFSH Past Medical History Atrial Fibrillation: Yes Autoimmune Disease: No Blood Disorders: No Anxiety: Yes Depression: No Heart Rhythm Problems: Yes (Atrial Fib) Cancer: Yes (prostate) Cardiovascular Problems: Yes High Cholesterol: Yes Chemotherapy: No Chest Pain: Yes Congestive Heart Failure: No COPD: Yes Diabetes: Yes (type 2 on metformin ) Patient Takes Glucophage: Yes Diminished Hearing: No Endocrine: Yes Gastrointestinal Disorders: Yes GERD: Yes Genitourinary: Yes Hepatitis: No Hiatal Hernia: No Hypertension: Yes Immune Disorder: No Musculoskeletal: No Neurologic: No Psychiatric: Yes Reproductive: No Respiratory: Yes Immunizations Current: Yes Myocardial Infarction: No Radiation Therapy: Yes (5-6 years ago) Sleep Apnea: No Ulcer: No Tetanus Vaccination: Unknown Influenza Vaccination: No Past Surgical History Abdominal Surgery: No AICD: No Appendectomy: No Arteriovenous Shunt: No Cardiac Surgery: No Cholecystectomy: No Ear Surgery: No Endocrine Surgery: No Eye Surgery: No Genitourinary Surgery: No Gynecologic Surgery: No Insulin Pump: No Joint Replacement: No Oral Surgery: Yes (Tonsillectomy) Pacemaker: No Thoracic Surgery: No Tonsillectomy: Yes Other Surgery: Yes (Tonsilectomy) Social History Alcohol Use: Yes (SOCIAL) Tobacco Use: No (QUIT EARLY OCTOBER 2016) Substance Use: No Allergies-Medications (Allergen,Severity, Reaction): Coded Allergies: Monosodium Glutamate (Verified Allergy, Intermediate, Hives, 11/02/16) Reported Meds & Prescriptions Reported Meds & Active Scripts Active Lisinopril 10 Mg Tab 10 Mg PO DAILY Pantoprazole (Pantoprazole Sodium) 40 Mg Tab 40 Mg PO DAILY Metoprolol Succinate ER 24 HR (Metoprolol Succinate) 25 Mg Tab 25 Mg PO DAILY Eliquis (Apixaban) 5 Mg Tab 5 Mg PO BID Reported Atorvastatin (Atorvastatin Calcium) 40 Mg Tab 40 Mg PO HS Review of Systems Except as stated in HPI: all other systems reviewed are Neg Physical Exam Narrative GENERAL: Well-nourished, well-developed male patient, ambulatory. Afebrile. SKIN: Focused skin assessment warm/dry. HEAD: Normocephalic. Atraumatic. EYES: No scleral icterus. No injection or drainage. NECK: Supple, trachea midline. No JVD or lymphadenopathy. CARDIOVASCULAR: Irregular rhythm, heart rate 101-138, without murmurs, gallops, or rubs. Bilateral radial and pedal pulses are 2+. RESPIRATORY: Breath sounds equal bilaterally. No accessory muscle use. Lungs sounds are clear to auscultation. GASTROINTESTINAL: Abdomen soft, non-tender, nondistended. MUSCULOSKELETAL: No cyanosis, or edema. BACK: Nontender without obvious deformity. No CVA tenderness. Data Data Last Documented VS Vital Signs Date Time Temp Pulse Resp B/P Pulse Ox O2 Delivery O2 Flow Rate FiO2 11/14/16 22:03 65 16 120/78 96 Room Air 11/14/16 20:18 97.8 Orders Electrocardiogram (11/14/16 ) Basic Metabolic Panel (Bmp) (11/14/16 20:59) Ckmb (Isoenzyme) Profile (11/14/16 20:59) Complete Blood Count With Diff (11/14/16 20:59) Magnesium (Mg) (11/14/16 20:59) Prothrombin Time / Inr (Pt) (11/14/16 20:59) Act Partial Throm Time (Ptt) (11/14/16 20:59) Troponin I (11/14/16 20:59) Chest, Single Ap (11/14/16 20:59) Ecg Monitoring (11/14/16 20:59) Bilateral Bp Monitoring (11/14/16 20:59) Iv Access Insert/Monitor (11/14/16 20:59) Oximetry (11/14/16 20:59) Oxygen Administration (11/14/16 20:59) Sodium Chloride 0.9% Flush (Ns Flush) (11/14/16 21:00) Diltiazem Inj (Cardizem Inj) (11/14/16 21:15) Labs Laboratory Tests Test 11/14/16 21:15 White Blood Count 7.3 TH/MM3 Red Blood Count 4.45 MIL/MM3 Hemoglobin 14.7 GM/DL Hematocrit 41.7 % Mean Corpuscular Volume 93.7 FL Mean Corpuscular Hemoglobin 33.1 PG Mean Corpuscular Hemoglobin 35.4 % Concent Red Cell Distribution Width 12.0 % Platelet Count 270 TH/MM3 Mean Platelet Volume 7.8 FL Neutrophils (%) (Auto) 63.9 % Lymphocytes (%) (Auto) 25.3 % Monocytes (%) (Auto) 8.2 % Eosinophils (%) (Auto) 1.9 % Basophils (%) (Auto) 0.7 % Neutrophils # (Auto) 4.7 TH/MM3 Lymphocytes # (Auto) 1.8 TH/MM3 Monocytes # (Auto) 0.6 TH/MM3 Eosinophils # (Auto) 0.1 TH/MM3 Basophils # (Auto) 0.1 TH/MM3 CBC Comment DIFF FINAL Differential Comment Prothrombin Time 10.4 SEC Prothromb Time International 0.9 RATIO Ratio Activated Partial 28.2 SEC Thromboplast Time Sodium Level 138 MEQ/L Potassium Level 4.4 MEQ/L Chloride Level 107 MEQ/L Carbon Dioxide Level 22.0 MEQ/L Anion Gap 9 MEQ/L Blood Urea Nitrogen 22 MG/DL Creatinine 0.95 MG/DL Estimat Glomerular Filtration 80 ML/MIN Rate Random Glucose 94 MG/DL Calcium Level 8.8 MG/DL Magnesium Level 2.2 MG/DL Total Creatine Kinase 68 U/L Troponin I 0.05 NG/ML MDM Medical Decision Making Medical Screen Exam Complete: Yes Emergency Medical Condition: Yes Medical Record Reviewed: Yes Interpretation(s) chest x-ray - CONCLUSION: Slight bibasilar atelectasis. Differential Diagnosis A. fib with RVR versus electrolyte abnormality versus ACS Narrative Course 66-year-old male presents to the emergency department in A. fib with RVR. This is the patient's fourth visit for the same. EKG shows atrial fibrillation with RVR, heart rate 121. CBC, BMP, CK, troponin, magnesium, PTT and PT/INR are ordered and pending. Chest x-ray is ordered and pending. Patient is given Cardizem 0.25 mg/kg. CBC shows no acute abnormality. BMP shows no acute abnormality. CK is 68. Troponin is 0.05. Magnesium is 2.2. Coags are unremarkable. Chest x-ray shows slight bibasilar atelectasis. After cardizem, patient converted to SR, HR 64. My attending physician, Dr. Yoo, examined patient as well. Patient has been in SR since cardizem. Patient is instructed to follow up with loader operator supervisor. He is to return for any acute, worsening of symptoms. Diagnosis Primary Impression: Atrial fibrillation with RVR Referrals: Office Nurse Practitioner 2 days Patient Instructions: Atrial Fibrillation (ED), General Instructions Additional Instructions: Follow up with loader operator supervisor. Return to the emergency department for any acute, worsening of symptoms. Med/Other Pt SpecificInfo: No Change to Meds Disposition: 01 DISCHARGE HOME Condition: Stable Mahnaz Massey Nov 14, 2016 21:06
[2016-11-14] MEDS ORDERED: DILTIAZEM HCL 25 MG/5 ML VIAL IV PUSH ONE (21:15)
[2016-11-14 21:16] VITALS: BP_SYST 120; BP_SYST 134; BP_DIAS 65; BP_DIAS 78
--- NOTE | 2016-11-14 21:27 | RADRPT ---
EXAM DATE/TIME: 11/14/2016 20:56 [facility] COMPARISON: CHEST SINGLE AP, October 23, 2016, 22:36. INDICATIONS : Chest pain. MEDICAL HISTORY : Cardiovascular disease. Hypertension SURGICAL HISTORY : None. ENCOUNTER: Initial ACUITY: 1 day PAIN SCORE: 10/10 LOCATION: Bilateral chest FINDINGS: Heart and mediastinum are unremarkable for technique. Slight bibasilar atelectasis is seen. CONCLUSION: Slight bibasilar atelectasis. Pooja Cheng MD on November 14, 2016 at 21:25 Board Certified Radiologist. This report was verified electronically.
[2016-11-14 22:02] LABS: AUTOMATED NEUTROPHIL # 4.7 TH/MM3 (1.8-7.7); BASOPHIL # 0.1 TH/MM3 (0-0.2); BASOPHIL % 0.7 % (0.0-2.0); EOSINOPHIL # 0.1 TH/MM3 (0-0.4); EOSINOPHIL % 1.9 % (0.0-4.0); HEMATOCRIT 41.7 % (39.0-51.0); HEMO FLAGS DIFF FINAL; LYMPH % 25.3 % (9.0-44.0); LYMPHOCYTE # 1.8 TH/MM3 (1.0-4.8); MEAN CELL VOLUME 93.7 FL (80.0-100.0); MEAN CORPUSCULAR HEMOGLOBIN 33.1 PG (27.0-34.0); MEAN CORPUSCULAR HGB CONC 35.4 % (32.0-36.0); MONO % 8.2 % (0.0-8.0); NEUT % 63.9 % (16.0-70.0); PLATELET COUNT 270 TH/MM3 (150-450); RED BLOOD COUNT 4.45 MIL/MM3 (4.50-5.90); WHITE BLOOD COUNT 7.3 TH/MM3 (4.0-11.0)
[2016-11-14 22:03] VITALS: BP 120/78; PULSE 65; RESP 16; O2SAT 96
[2016-11-14 22:13] LABS: APTT (PATIENT) 28.2 SEC (24.3-30.1); INTERNATIONAL NORMALIZED RATIO 0.9 RATIO; PROTHROMBIN TIME - PATIENT 10.4 SEC (9.8-11.6)
[2016-11-14 22:45] LABS: MAGNESIUM 2.2 MG/DL (1.5-2.5); POTASSIUM 4.4 MEQ/L (3.5-5.1)
--- NOTE | 2016-11-14 22:48 | PD ---
Data Data Last Documented VS Vital Signs Date Time Temp Pulse Resp B/P Pulse Ox O2 Delivery O2 Flow Rate FiO2 11/14/16 22:03 65 16 120/78 96 Room Air 11/14/16 20:18 97.8 Orders Electrocardiogram (11/14/16 ) Basic Metabolic Panel (Bmp) (11/14/16 20:59) Ckmb (Isoenzyme) Profile (11/14/16 20:59) Complete Blood Count With Diff (11/14/16 20:59) Magnesium (Mg) (11/14/16 20:59) Prothrombin Time / Inr (Pt) (11/14/16 20:59) Act Partial Throm Time (Ptt) (11/14/16 20:59) Troponin I (11/14/16 20:59) Chest, Single Ap (11/14/16 20:59) Ecg Monitoring (11/14/16 20:59) Bilateral Bp Monitoring (11/14/16 20:59) Iv Access Insert/Monitor (11/14/16 20:59) Oximetry (11/14/16 20:59) Oxygen Administration (11/14/16 20:59) Sodium Chloride 0.9% Flush (Ns Flush) (11/14/16 21:00) Diltiazem Inj (Cardizem Inj) (11/14/16 21:15) Labs Laboratory Tests Test 11/14/16 21:15 White Blood Count 7.3 TH/MM3 Red Blood Count 4.45 MIL/MM3 Hemoglobin 14.7 GM/DL Hematocrit 41.7 % Mean Corpuscular Volume 93.7 FL Mean Corpuscular Hemoglobin 33.1 PG Mean Corpuscular Hemoglobin 35.4 % Concent Red Cell Distribution Width 12.0 % Platelet Count 270 TH/MM3 Mean Platelet Volume 7.8 FL Neutrophils (%) (Auto) 63.9 % Lymphocytes (%) (Auto) 25.3 % Monocytes (%) (Auto) 8.2 % Eosinophils (%) (Auto) 1.9 % Basophils (%) (Auto) 0.7 % Neutrophils # (Auto) 4.7 TH/MM3 Lymphocytes # (Auto) 1.8 TH/MM3 Monocytes # (Auto) 0.6 TH/MM3 Eosinophils # (Auto) 0.1 TH/MM3 Basophils # (Auto) 0.1 TH/MM3 CBC Comment DIFF FINAL Differential Comment Prothrombin Time 10.4 SEC Prothromb Time International 0.9 RATIO Ratio Activated Partial 28.2 SEC Thromboplast Time Sodium Level 138 MEQ/L Potassium Level 4.4 MEQ/L Chloride Level 107 MEQ/L Carbon Dioxide Level 22.0 MEQ/L Anion Gap 9 MEQ/L Blood Urea Nitrogen 22 MG/DL Creatinine 0.95 MG/DL Estimat Glomerular Filtration 80 ML/MIN Rate Random Glucose 94 MG/DL Calcium Level 8.8 MG/DL Magnesium Level 2.2 MG/DL Total Creatine Kinase 68 U/L Troponin I 0.05 NG/ML MDM Supervised Visit with DANIELLA: Yes Narrative Course The history, exam, and medical decision-making in the associated mid-level provider note were completed with my assistance. I reviewed and agree with the findings presented. I attest that I had a [id number] encounter with the patient on the same day, and personally performed and documented my assessment and findings in the medical record. *My assessment and Findings: 66 old man, A. fib RVR history of recent ablation, spontaneously converted. Labs unremarkable. His artery on blood thinners and beta blockers. Recommend outpatient follow-up. Ramiro Yoo MD Nov 14, 2016 22:48
--- NOTE | 2016-11-15 13:20 | EKG ---
Date Performed: 11/14/2016 Time Performed: 20:46:33 PTAGE: 66 years EKG: ATRIAL FIBRILLATION WITH RAPID VENTRICULAR RESPONSE NONSPECIFIC T-WAVE ABNORMALITY ABNORMAL RHYTHM ECG PREVIOUS TRACING : 11/10/2016 05.50 Since prior tracing, the atrial fibrillation with rapid izabella tricular response has replaced Sinus rhythm . DOCTOR: Michael Vargas Interpretating Date/Time 11/15/2016 13:18:54
== END 2016-11-14 23:07 | disposition home or self-care (01) ==
LOC: NEPC 20:16
DX: I48.0 Paroxysmal atrial fibrillation (principal); Z87.891 Personal history of nicotine dependence
CPT/HCPCS: 71010; 80048; 82550; 83735; 84484; 85025; 85610; 85730; 93005; 96374

== ENCOUNTER 2016-11-22 14:35 | Inpatient (IN) | payer OTHER ==
[2016-11-22] VITALS (11 sets, daily range): BP systolic 89–121; BP diastolic 56–78; PULSE 54–120; RESP 16–20; TEMP 98.1; O2SAT 96–100
[~2016-11-22] VITALS: Ht 172.7 cm; Wt 75.5 kg
[2016-11-22] MEDS ORDERED: MORPHINE SULFATE 8 MG/ML INJ IV PUSH ONE (15:15)
[2016-11-22] MEDS ORDERED: SODIUM CHLORIDE 0.9% FLUSH 10 ML FLUSH IVF PRN (15:15)
--- NOTE | 2016-11-22 15:35 | RADRPT ---
EXAM DATE/TIME: 11/22/2016 15:06 [facility] COMPARISON: CHEST SINGLE AP, November 14, 2016, 20:56. INDICATIONS : Chest pain in center of chest. Had an ablation 2 weeks ago. MEDICAL HISTORY : Cardiovascular disease. Hypertension. A-fib. SURGICAL HISTORY : Ablation. ENCOUNTER: Initial ACUITY: 1 day PAIN SCORE: 8/10 LOCATION: Bilateral chest FINDINGS: A single view of the chest demonstrates minimal bibasilar atelectasis. Heart normal in size. The card iomediastinal contours are unremarkable. Osseous structures are intact. CONCLUSION: Bibasilar atelectasis. Ananth Mejias MD on November 22, 2016 at 15:33 Board Certified Radiologist. This report was verified electronically.
[2016-11-22 15:45] LABS: AUTOMATED NEUTROPHIL # 6.3 TH/MM3 (1.8-7.7); BASOPHIL % 0.2 % (0.0-2.0); EOSINOPHIL # 0.1 TH/MM3 (0-0.4); EOSINOPHIL % 0.6 % (0.0-4.0); HEMATOCRIT 41.1 % (39.0-51.0); HEMO FLAGS DIFF FINAL; LYMPH % 21.4 % (9.0-44.0); LYMPHOCYTE # 1.9 TH/MM3 (1.0-4.8); MEAN CELL VOLUME 95.1 FL (80.0-100.0); MEAN CORPUSCULAR HEMOGLOBIN 33.2 PG (27.0-34.0); MEAN CORPUSCULAR HGB CONC 34.9 % (32.0-36.0); MONO % 8.1 % (0.0-8.0); NEUT % 69.7 % (16.0-70.0); PLATELET COUNT 233 TH/MM3 (150-450); RED BLOOD COUNT 4.32 MIL/MM3 (4.50-5.90); RED CELL DISTRIBUTION WIDTH 12.1 % (11.6-17.2)
[2016-11-22 15:50] LABS: APTT (PATIENT) 32.5 SEC (24.3-30.1); PROTHROMBIN TIME - PATIENT 11.5 SEC (9.8-11.6)
[2016-11-22 15:57] LABS: ANION GAP 10 MEQ/L (5-15); BICARBONATE 24.9 MEQ/L (21.0-32.0); BLOOD UREA NITROGEN 14 MG/DL (7-18); CHLORIDE 104 MEQ/L (98-107); GLOMERULAR FILTRATION RATE 84 ML/MIN (>89); POTASSIUM 3.8 MEQ/L (3.5-5.1); SODIUM (NA) 139 MEQ/L (136-145)
[2016-11-22] MEDS ORDERED: SODIUM CHLOR 0.9% 1000 ML INJ 1,000 ML IV ONE ×2 (16:30→17:45)
[2016-11-22 16:33] LABS: CREATINE KINASE 34 U/L (39-308)
[2016-11-22] MEDS ORDERED: METO25TA3 PO (16:58)
[2016-11-22] MEDS ORDERED: METF500T PO (16:59)
[2016-11-22] MEDS ORDERED: DILTIAZEM INJ 125 MG in SODIUM CHLORIDE 0.9% INJ 100 ML IV SCH (17:00)
[2016-11-22] MEDS ORDERED: DILTIAZEM HCL 25 MG/5 ML VIAL IV ONE (17:15)
[2016-11-22] MEDS ORDERED: DILTIAZEM HCL 50 MG/10 ML VIAL IV PUSH ONE (17:15)
[2016-11-22] MEDS ORDERED: TEMAZEPAM 15 MG CAP PO PRN (17:30)
[2016-11-22] MEDS ORDERED: NALOXONE HCL 0.4 MG/ML AMP IV PRN (17:30)
[2016-11-22] MEDS ORDERED: ONDANSETRON HCL 4 MG/2 ML VIAL IVP PRN (17:30)
[2016-11-22] MEDS ORDERED: MAGNESIUM HYDROXIDE SUSP 30 ML CUP PO PRN (17:30)
[2016-11-22] MEDS ORDERED: ACETAMINOPHEN 325 MG TAB PO PRN (17:30)
[2016-11-22] MEDS ORDERED: SODIUM CHLORIDE 0.9% FLUSH 10 ML FLUSH IV FLUSH PRN (17:30)
--- NOTE | 2016-11-22 17:32 | PD ---
HPI Chief Complaint: Cardiac Complaint Time Seen by Provider: 14:58 Travel History International Travel<30 days: No Contact w/Intl Traveler<30days: No Traveled to known affect area: No History of Present Illness HPI Patient is a 66-year-old male who comes in complaining of chest pain. He has history of atrial fibrillation and says he recently had an ablation. Today he felt his heart racing. He says he feels a pain in the middle of his chest. He denies shortness of breath or nausea. He reports taking his medications as directed. He denies fever or chills. He denies cough or cold. PFSH Past Medical History Hx Anticoagulant Therapy: Yes Atrial Fibrillation: Yes Autoimmune Disease: No Blood Disorders: No Anxiety: Yes Depression: No Heart Rhythm Problems: Yes (Atrial Fib) Cancer: Yes (prostate) Cardiovascular Problems: Yes High Cholesterol: Yes Chemotherapy: No Chest Pain: Yes Congestive Heart Failure: No COPD: Yes Diabetes: Yes Patient Takes Glucophage: Yes Diminished Hearing: No Endocrine: Yes Gastrointestinal Disorders: Yes GERD: Yes Genitourinary: Yes Hepatitis: No Hiatal Hernia: No Hypertension: Yes Immune Disorder: No Musculoskeletal: No Neurologic: No Psychiatric: Yes Reproductive: No Respiratory: Yes Immunizations Current: Yes Myocardial Infarction: No Radiation Therapy: Yes (5-6 years ago) Sleep Apnea: No Ulcer: No Past Surgical History Abdominal Surgery: No AICD: No Appendectomy: No Arteriovenous Shunt: No Cardiac Surgery: No Cholecystectomy: No Ear Surgery: No Endocrine Surgery: No Eye Surgery: No Genitourinary Surgery: No Gynecologic Surgery: No Insulin Pump: No Joint Replacement: No Oral Surgery: Yes (Tonsillectomy) Pacemaker: No Thoracic Surgery: No Tonsillectomy: Yes Other Surgery: Yes (Tonsilectomy) Social History Alcohol Use: Yes (SOCIAL) Tobacco Use: No (QUIT EARLY OCTOBER 2016) Substance Use: No Allergies-Medications (Allergen,Severity, Reaction): Coded Allergies: Monosodium Glutamate (Verified Allergy, Intermediate, Hives, 11/02/16) Reported Meds & Prescriptions Reported Meds & Active Scripts Active Lisinopril 10 Mg Tab 10 Mg PO DAILY Pantoprazole (Pantoprazole Sodium) 40 Mg Tab 40 Mg PO DAILY Eliquis (Apixaban) 5 Mg Tab 5 Mg PO BID Reported Metformin (Metformin HCl) 500 Mg Tab 500 Mg PO BIDPC With meals Metoprolol Tartrate 25 Mg Tab 25 Mg PO BID Atorvastatin (Atorvastatin Calcium) 40 Mg Tab 40 Mg PO HS Review of Systems Except as stated in HPI: all other systems reviewed are Neg General / Constitutional: No: Fever, Chills Eyes: No: Blurred Vision HENT: No: Headaches, Lightheadedness Cardiovascular: Positive: Chest Pain or Discomfort, Palpitations Respiratory: No: Shortness of Breath Gastrointestinal: No: Nausea, Vomiting Genitourinary: No: Dysuria Musculoskeletal: No: Edema Skin: No Rash, No Change in Pigmentation Neurologic: No: Weakness, Dizziness Physical Exam Narrative GENERAL: Awake and alert, in no acute distress. SKIN: Focused skin assessment warm/dry. HEAD: Atraumatic. Normocephalic. EYES: Pupils equal and round. No scleral icterus. No injection or drainage. ENT: Mucous membranes pink and moist. NECK: Trachea midline. No JVD. CARDIOVASCULAR: irregular rhythm, rapid rate. No murmur appreciated. RESPIRATORY: No accessory muscle use. Clear to auscultation. Breath sounds equal bilaterally. GASTROINTESTINAL: Abdomen soft, non-tender, nondistended. MUSCULOSKELETAL: No obvious deformities. No clubbing. No cyanosis. No edema. NEUROLOGICAL: Awake and alert. No obvious cranial nerve deficits. Motor grossly within normal limits. Normal speech. PSYCHIATRIC: Appropriate mood and affect; insight and judgment normal. Data Data Last Documented VS Vital Signs Date Time Temp Pulse Resp B/P Pulse Ox O2 Delivery O2 Flow Rate FiO2 11/22/16 17:11 120 16 110/62 100 11/22/16 15:47 Nasal Cannula 2 11/22/16 14:49 98.1 Orders Electrocardiogram (11/22/16 15:03) Basic Metabolic Panel (Bmp) (11/22/16 15:03) Ckmb (Isoenzyme) Profile (11/22/16 15:03) Complete Blood Count With Diff (11/22/16 15:03) Prothrombin Time / Inr (Pt) (11/22/16 15:03) Act Partial Throm Time (Ptt) (11/22/16 15:03) Troponin I (11/22/16 15:03) Chest, Single Ap (11/22/16 15:03) Ecg Monitoring (11/22/16 15:03) Bilateral Bp Monitoring (11/22/16 15:03) Iv Access Insert/Monitor (11/22/16 15:03) Oximetry (11/22/16 15:03) Oxygen Administration (11/22/16 15:03) Sodium Chloride 0.9% Flush (Ns Flush) (11/22/16 15:15) Morphine Inj (Morphine Inj) (11/22/16 15:15) Sodium Chlor 0.9% 1000 Ml Inj (Ns 1000 M (11/22/16 16:30) Diltiazem Inj (Cardizem Inj) (11/22/16 17:00) Diltiazem Inj (Cardizem Inj) (11/22/16 17:15) Labs Laboratory Tests Test 11/22/16 15:15 White Blood Count 9.0 TH/MM3 Red Blood Count 4.32 MIL/MM3 Hemoglobin 14.3 GM/DL Hematocrit 41.1 % Mean Corpuscular Volume 95.1 FL Mean Corpuscular Hemoglobin 33.2 PG Mean Corpuscular Hemoglobin 34.9 % Concent Red Cell Distribution Width 12.1 % Platelet Count 233 TH/MM3 Mean Platelet Volume 7.9 FL Neutrophils (%) (Auto) 69.7 % Lymphocytes (%) (Auto) 21.4 % Monocytes (%) (Auto) 8.1 % Eosinophils (%) (Auto) 0.6 % Basophils (%) (Auto) 0.2 % Neutrophils # (Auto) 6.3 TH/MM3 Lymphocytes # (Auto) 1.9 TH/MM3 Monocytes # (Auto) 0.7 TH/MM3 Eosinophils # (Auto) 0.1 TH/MM3 Basophils # (Auto) 0.0 TH/MM3 CBC Comment DIFF FINAL Differential Comment Prothrombin Time 11.5 SEC Prothromb Time International 1.0 RATIO Ratio Activated Partial 32.5 SEC Thromboplast Time Sodium Level 139 MEQ/L Potassium Level 3.8 MEQ/L Chloride Level 104 MEQ/L Carbon Dioxide Level 24.9 MEQ/L Anion Gap 10 MEQ/L Blood Urea Nitrogen 14 MG/DL Creatinine 0.91 MG/DL Estimat Glomerular Filtration 84 ML/MIN Rate Random Glucose 85 MG/DL Calcium Level 8.7 MG/DL Total Creatine Kinase 34 U/L Troponin I LESS THAN 0.02 NG/ML MDM Medical Decision Making Medical Screen Exam Complete: Yes Emergency Medical Condition: Yes Medical Record Reviewed: Yes Interpretation(s) ECG shows A. fib with RVR at a rate of 102. Differential Diagnosis ACS vs NSTEMI vs STEMI vs Afib with RVR Narrative Course Patient is a 66-year-old male comes in complaining of chest pain and palpitations. Patient was found to be in A. fib with RVR by EMS. He was given 20 mg of Cardizem which improved his rate. Here he was connected to the vest front presser and labs were sent. His heart rate started to increase again. He was given a second bolus of Cardizem and started on a Cardizem drip. Labs show no acute abnormalities. He did receive aspirin and nitroglycerin by EMS. He was given morphine here for chest pain. She will be admitted for further management. Diagnosis Primary Impression: Atrial fibrillation with RVR Additional Impression: Chest pain Qualified Code: R07.9 - Chest pain, unspecified type Admitting Information Admitting Physician Requests: Admit Condition: Stable Suzy Ovalle MD Nov 22, 2016 17:32
[2016-11-22] MEDS: metFORMIN HCL 500 MG TAB PO SCH (18:05)
--- NOTE | 2016-11-22 18:47 | EKG ---
Date Performed: 11/22/2016 Time Performed: 14:50:20 PTAGE: 66 years EKG: ATRIAL FIBRILLATION WITH RAPID VENTRICULAR RESPONSE NONSPECIFIC T-WAVE ABNORMALITY ABNORMAL RHYTHM ECG PREVIOUS TRACING : 11/14/2016 20.46 No significant change from previous tracing noted. DOCTOR: hCele Salinas Interpretating Date/Time 11/22/2016 18:46:37
[2016-11-22] MEDS: SODIUM CHLORIDE 0.9% FLUSH 10 ML FLUSH IV FLUSH SCH (20:22)
[2016-11-22] MEDS: APIXABAN 5 MG TABLET PO SCH (21:00)
[2016-11-22] MEDS: METOPROLOL TARTRATE 25 MG TAB PO SCH (21:00)
[2016-11-22] MEDS: ATORVASTATIN 40 MG TAB PO SCH (21:00)
--- NOTE | 2016-11-22 21:39 | HHI.HP ---
HPI Service [facility] Hospitalists Primary Care Physician Kyra Dickens MD Admission Diagnosis Chest pain, Afib with RVR Chief Complaint: chest pain palpitations Travel History International Travel<30 Days: No Contact w/Intl Traveler <30 Da: No Traveled to Known Affected Are: No History of Present Illness - Pt is a 66 y/o with A. fib RVR. This is the patients fourth hospitalization, in the last two months for A. fib RVR. - He was hospitalized at [place] 10/10-10/12/16 during which he had a Lexiscan on 10/12/16 which noted no reversible perfusion defects. Patient was discharged on oral Cardizem, Lopressor, and Eliquis during that admission. - Pt was admitted again 10/23-10/26/16 again with A. fib RVR and was given IV Cardizem with conversion to normal sinus rhythm. His dose of oral Cardizem was increased to 240 mg daily and metoprolol was stopped. Pt was seen by Dr. Diamond and was recommended to have evaluation by electrophysiology and possible EPS study with ablation per which was scheduled for November 16, 2016. - Pt was again hospitalized 11/02 - 11/10/16. Pt underwent EPS with ablation performed by Dr. Diamond (11/09/16). Pt was discharged on eliquis and metoprolol. - Pt now again presents to the [place] ER with c/o chest pain and palpitation which started today at 3PM at rest. Pt was found to be in A.Fib with RVR. Pt was started on IV Cardizem and admitted to [place] for further evaluation and treatment. - Pt states that he had an episode of Afib RVR a week ago. At that time pt reports that he was treated in the ER and released. Apparently, not at [place] since there is nothing in [facility]. Dr. Diamond was notified of Mr. Carrasco's admission and will consult in the morning. Review of Systems Constitutional: DENIES: Diaphoretic episodes, Fatigue, Fever, Weight gain, Weight loss, Chills, Dizziness, Change in appetite, Night Sweats Endocrine: DENIES: Heat/cold intolerance, Polydipsia, Polyuria, Polyphagia Eyes: DENIES: Blurred vision, Diplopia, Eye inflammation, Eye pain, Vision loss , Photosensitivity, Double Vision Ears, nose, mouth, throat: DENIES: Tinnitus, Hearing loss, Vertigo, Nasal discharge, Oral lesions, Throat pain, Hoarseness, Ear Pain, Running Nose, Epistaxis, Sinus Pain, Toothache, Odynophagia Respiratory: DENIES: Apneas, Cough, Snoring, Wheezing, Hemoptysis, Sputum production, Shortness of breath Cardiovascular: COMPLAINS OF: Palpitations, DENIES: Chest pain, Syncope, Dyspnea on Exertion, PND, Lower Extremity Edema, Orthopnea, Claudication Gastrointestinal: COMPLAINS OF: See HPI, DENIES: Abdominal pain, Black stools , Bloody stools, BRB per rectum, Constipation, Diarrhea, GERD, Nausea, Reflux, Vomiting, Difficulty Swallowing, Anorexia Genitourinary: DENIES: Urinary frequency, Urinary incontinence, Urgency, Hematuria, Dysuria, Nocturia Musculoskeletal: DENIES: Joint pain, Muscle aches, Stiffness, Joint Swelling, Back pain, Neck pain Integumentary: DENIES: Abnormal pigmentation, Nail changes, Pruritus, Rash Hematologic/lymphatic: DENIES: Bruising, Lymphadenopathy Immunologic/allergic: DENIES: Eczema, Urticaria Neurologic: DENIES: Abnormal gait, Headache, Localized weakness, Paresthesias, Seizures, Speech Problems, Tremor, Poor Balance Psychiatric: DENIES: Anxiety, Confusion, Mood changes, Depression, Hallucinations, Agitation, Suicidal Ideation, Homicidal Ideation, Delusions, History of Bipolar, History of Schizophrenia Past Family Social History Past Medical History Paroxysmal atrial fibrillation Hypertension DM Hyperlipidemia GERD Erectile dysfunction History of prostate cancer, received radiation therapy Hx of tobacco use Past Surgical History 1) Repair of left ankle fracture following orthopedic injuries secondary to a fall 2) [facility] 2006 3) [facility] 10/2016 4) EPS with ablation performed by Dr. Diamond (11/09/16) Reported Medications Reported Meds & Active Scripts Active Lisinopril 10 Mg Tab 10 Mg PO DAILY Pantoprazole (Pantoprazole Sodium) 40 Mg Tab 40 Mg PO DAILY Eliquis (Apixaban) 5 Mg Tab 5 Mg PO BID Reported Metformin (Metformin HCl) 500 Mg Tab 500 Mg PO BIDPC With meals Metoprolol Tartrate 25 Mg Tab 25 Mg PO BID Atorvastatin (Atorvastatin Calcium) 40 Mg Tab 40 Mg PO HS Allergies: Coded Allergies: Monosodium Glutamate (Verified Allergy, Intermediate, Hives, 11/02/16) Family History Mother secondary to cancer, possibly lung cancer Father age 78, possibly due to unspecified liver disease Patient has 2 brothers and 2 sisters, some of whom have hypertension Social History (+)Hx of tobacco, patient has smoked one pack per day for the last 45 years, quit 2 months ago (+)Alcohol use, 2 beers per day, Denies any illicit drug use Physical Exam Vital Signs Vital Signs Date Time Temp Pulse Resp B/P Pulse Ox O2 Delivery O2 Flow Rate FiO2 11/22/16 18:28 112 16 110/63 97 Room Air 11/22/16 18:07 118 18 97/63 97 Nasal Cannula 2 11/22/16 17:47 119 18 95/78 97 Nasal Cannula 2 11/22/16 17:11 120 16 110/62 100 11/22/16 15:47 113 16 94/66 98 Nasal Cannula 2 11/22/16 14:49 98.1 99 20 121/69 96 11/22/16 14:48 98 Nasal Cannula 2 11/22/16 14:48 98 2 Physical Exam GENERAL: This is a well-nourished, well-developed patient, in no apparent distress. SKIN: No rashes, ecchymoses or lesions. Cool and dry. HEAD: Atraumatic. Normocephalic. No temporal or scalp tenderness. EYES: Pupils equal round and reactive. Extraocular motions intact. No scleral icterus. No injection or drainage. ENT: Nose without bleeding, purulent drainage or septal hematoma. Throat without erythema, tonsillar hypertrophy or exudate. Uvula midline. Airway patent. NECK: Trachea midline. No JVD or lymphadenopathy. Supple, nontender, no meningeal signs. CARDIOVASCULAR: Regular rate and rhythm without murmurs, gallops, or rubs. RESPIRATORY: Clear to auscultation. Breath sounds equal bilaterally. No wheezes , rales, or rhonchi. GASTROINTESTINAL: Abdomen soft, non-tender, nondistended. No hepato-splenomegaly , or palpable masses. No guarding. MUSCULOSKELETAL: Extremities without clubbing, cyanosis, or edema. No joint tenderness, effusion, or edema noted. No calf tenderness. Negative Homans sign bilaterally. NEUROLOGICAL: Awake and alert. Cranial nerves II through XII intact. Motor and sensory grossly within normal limits. Five out of 5 muscle strength in all muscle groups. Normal speech. Laboratory Laboratory Tests Test 11/22/16 15:15 White Blood Count 9.0 Red Blood Count 4.32 Hemoglobin 14.3 Hematocrit 41.1 Mean Corpuscular Volume 95.1 Mean Corpuscular Hemoglobin 33.2 Mean Corpuscular Hemoglobin 34.9 Concent Red Cell Distribution Width 12.1 Platelet Count 233 Mean Platelet Volume 7.9 Neutrophils (%) (Auto) 69.7 Lymphocytes (%) (Auto) 21.4 Monocytes (%) (Auto) 8.1 Eosinophils (%) (Auto) 0.6 Basophils (%) (Auto) 0.2 Neutrophils # (Auto) 6.3 Lymphocytes # (Auto) 1.9 Monocytes # (Auto) 0.7 Eosinophils # (Auto) 0.1 Basophils # (Auto) 0.0 CBC Comment DIFF FINAL Differential Comment Prothrombin Time 11.5 Prothromb Time International 1.0 Ratio Activated Partial 32.5 Thromboplast Time Sodium Level 139 Potassium Level 3.8 Chloride Level 104 Carbon Dioxide Level 24.9 Anion Gap 10 Blood Urea Nitrogen 14 Creatinine 0.91 Estimat Glomerular Filtration 84 Rate Random Glucose 85 Calcium Level 8.7 Total Creatine Kinase 34 Troponin I LESS THAN 0.02 Result Diagram: 11/22/16 1515 11/22/16 1515 Imaging Last Impressions Chest X-Ray 11/22/16 1503 Signed Impressions: Service Date/Time: Tuesday, November 22, 2016 15:06 - CONCLUSION: Bibasilar atelectasis. Ananth Mejias MD Septic Shock Reassessment Heart: Regular rate and rhythm Lungs: Clear Skin: Warm Peripheral Pulses: Bounding Right Radial Bounding Left Radial Bounding Right Popliteal Bounding Left Popliteal Bounding Right Dorsalis Pedis Bounding Left Dorsalis Pedis Bounding Right Posterior Tibial Bounding Left Posterior Tibial Capillary Refill: Brisk Assessment and Plan Problem List: (1) Atrial fibrillation with RVR Status: Chronic Plan: - Pt has had multiple hospitalization for A.Fib in the last 2 month. This is his fourth. - Pt underwent EPS and ablation performed by Dr. Diamond (11/09/16) - Pt was discharged afterwards on eliquis and metoprolol - Pt now readmitted to [place] with c/o chest pain and palpitations - Telemetry on admission showed afib with RVR - Cardizem drip - Eliquis continued - Dr. Diamond notified. He will consult in the morning. (2) Hypertension Status: Chronic Plan: - stable - metoprolol - pt on cardizem gtt (3) GERD (gastroesophageal reflux disease) Status: Chronic Plan: - PPI (4) History of prostate cancer Status: Resolved Physician Certification 2 Midnight Certification Type: Admission for Inpatient Services Order for Inpatient Services The services are ordered in accordance with Medicare regulations or non- Medicare payer requirements, as applicable. In the case of services not specified as inpatient-only, they are appropriately provided as inpatient services in accordance with the 2-midnight benchmark. Estimated LOS (days): 3 3 days is the estimated time the patient will need to remain in the hospital, assuming treatment plan goals are met and no additional complications. Post-Hospital Plan: Home Problem Qualifiers (1) Hypertension: Qualified Code: I10 - Essential hypertension Jaylen Menjivar DO Nov 22, 2016 21:39
[2016-11-23] VITALS (24 sets, daily range): BP systolic 91–136; BP diastolic 60–92; PULSE 54–160; RESP 16–20; TEMP 98–98.3; O2SAT 92–97
[2016-11-23] MEDS ORDERED: DILTIAZEM INJ 125 MG in SODIUM CHLORIDE 0.9% INJ 100 ML IV SCH (00:15)
[2016-11-23 05:27] LABS: BICARBONATE 24.5 MEQ/L (21.0-32.0); POTASSIUM 3.6 MEQ/L (3.5-5.1)
[2016-11-23 05:31] LABS: AUTOMATED NEUTROPHIL # 3.4 TH/MM3 (1.8-7.7); BASOPHIL % 0.3 % (0.0-2.0); EOSINOPHIL # 0.1 TH/MM3 (0-0.4); EOSINOPHIL % 1.4 % (0.0-4.0); HEMATOCRIT 35.5 % (39.0-51.0); HEMO FLAGS DIFF FINAL; LYMPH % 27.5 % (9.0-44.0); LYMPHOCYTE # 1.5 TH/MM3 (1.0-4.8); MEAN CELL VOLUME 95.2 FL (80.0-100.0); MEAN CORPUSCULAR HEMOGLOBIN 32.8 PG (27.0-34.0); MEAN CORPUSCULAR HGB CONC 34.4 % (32.0-36.0); MONO % 10.2 % (0.0-8.0); NEUT % 60.6 % (16.0-70.0); PLATELET COUNT 199 TH/MM3 (150-450); RED BLOOD COUNT 3.73 MIL/MM3 (4.50-5.90); RED CELL DISTRIBUTION WIDTH 11.9 % (11.6-17.2); WHITE BLOOD COUNT 5.6 TH/MM3 (4.0-11.0)
[2016-11-23] MEDS: PANTOPRAZOLE SOD 40 MG DELAYED RELEASE TAB PO SCH (08:30)
[2016-11-23] MEDS: APIXABAN 5 MG TABLET PO SCH ×2 (08:31→21:31)
[2016-11-23] MEDS: METOPROLOL TARTRATE 25 MG TAB PO SCH ×2 (08:31→21:30)
[2016-11-23] MEDS: metFORMIN HCL 500 MG TAB PO SCH ×2 (08:31→17:48)
[2016-11-23] MEDS: SODIUM CHLORIDE 0.9% FLUSH 10 ML FLUSH IV FLUSH SCH ×2 (08:33→21:00)
--- NOTE | 2016-11-23 09:09 | HHI.PR ---
Subjective Remarks c/o palpitation Objective Vitals heart irreg lung cta abd s/nt ext no edema Vital Signs Date Time Temp Pulse Resp B/P Pulse Ox O2 Delivery O2 Flow Rate FiO2 11/23/16 08:01 70 11/23/16 07:00 98.0 69 18 110/74 97 11/23/16 07:00 64 11/23/16 06:04 56 11/23/16 05:00 58 11/23/16 04:00 55 11/23/16 03:00 54 11/23/16 03:00 98.0 60 20 91/60 97 11/23/16 02:00 54 11/23/16 01:00 54 11/23/16 00:00 55 11/22/16 23:00 98.1 59 20 89/56 98 11/22/16 23:00 54 11/22/16 22:00 56 11/22/16 21:00 92 11/22/16 20:00 82 11/22/16 18:28 112 16 110/63 97 Room Air 11/22/16 18:07 118 18 97/63 97 Nasal Cannula 2 11/22/16 17:47 119 18 95/78 97 Nasal Cannula 2 11/22/16 17:11 120 16 110/62 100 11/22/16 15:47 113 16 94/66 98 Nasal Cannula 2 11/22/16 14:49 98.1 99 20 121/69 96 11/22/16 14:48 98 Nasal Cannula 2 11/22/16 14:48 98 2 11/22/16 11/22/16 11/23/16 14:59 22:59 06:59 Intake Total 553 ml Output Total 825 ml Balance -272 ml Intake Oral 480 ml IV Total 73 ml Output Urine Total 825 ml Result Diagram: 11/23/16 0412 11/23/16 0412 Imaging Last Impressions Chest X-Ray 11/22/16 1503 Signed Impressions: Service Date/Time: Tuesday, November 22, 2016 15:06 - CONCLUSION: Bibasilar atelectasis. Ananth Mejias MD A/P Problem List: (1) Atrial fibrillation with RVR Status: Chronic Plan: - Pt has had multiple hospitalization for A.Fib in the last 2 month. This is his fourth. - Pt underwent EPS and ablation performed by Dr. Diamond (11/09/16) - Pt was discharged afterwards on eliquis and metoprolol - Pt now readmitted to [place] with c/o chest pain and palpitations - Telemetry on admission showed afib with RVR - Cardizem drip - Eliquis continued - Dr. Diamond notified. await consultation today. (2) Hypertension Status: Chronic Plan: - stable - metoprolol - pt on cardizem gtt (3) GERD (gastroesophageal reflux disease) Status: Chronic Plan: - PPI (4) History of prostate cancer Status: Resolved Problem Qualifiers (1) Hypertension: Qualified Code: I10 - Essential hypertension Moises Mcdaniel MD Nov 23, 2016 09:09
[2016-11-23] MEDS: ATORVASTATIN 40 MG TAB PO SCH (21:31)
[2016-11-23] MEDS ORDERED: DILTIAZEM HCL 25 MG/5 ML VIAL IV ONE (22:15)
[2016-11-24] VITALS (24 sets, daily range): BP systolic 92–114; BP diastolic 59–75; PULSE 61–121; RESP 18–20; TEMP 97.9–99; O2SAT 94–97
[2016-11-24] MEDS: metFORMIN HCL 500 MG TAB PO SCH ×2 (09:03→17:51)
[2016-11-24] MEDS: METOPROLOL TARTRATE 25 MG TAB PO SCH (09:03)
[2016-11-24] MEDS: PANTOPRAZOLE SOD 40 MG DELAYED RELEASE TAB PO SCH (09:03)
[2016-11-24] MEDS: APIXABAN 5 MG TABLET PO SCH ×2 (09:03→20:16)
[2016-11-24] MEDS: SODIUM CHLORIDE 0.9% FLUSH 10 ML FLUSH IV FLUSH SCH ×2 (09:04→20:17)
--- NOTE | 2016-11-24 09:06 | HHI.PR ---
Subjective Remarks taken off cardizem gtt last night. then afib/rvr and resumed. pt frustrated Objective Vitals heart irreg lung cta abd s/nt ext on edema Vital Signs Date Time Temp Pulse Resp B/P Pulse Ox O2 Delivery O2 Flow Rate FiO2 11/24/16 06:00 70 11/24/16 05:00 102 11/24/16 04:00 64 11/24/16 03:20 97.9 65 18 92/66 96 11/24/16 03:20 96 Nasal Cannula 2.00 11/24/16 03:00 64 11/24/16 02:00 86 11/24/16 01:00 121 11/24/16 00:52 83 11/24/16 00:48 105 11/24/16 00:00 103 11/23/16 23:59 137 11/23/16 23:10 95 Nasal Cannula 2.00 11/23/16 23:10 98.0 91 18 109/91 95 11/23/16 23:00 101 11/23/16 22:50 122 11/23/16 22:00 118 11/23/16 21:00 92 Nasal Cannula 2.00 11/23/16 21:00 160 11/23/16 20:45 98.2 145 18 136/92 92 11/23/16 20:45 92 Nasal Cannula 2.00 11/23/16 20:00 74 11/23/16 19:00 77 11/23/16 17:14 74 11/23/16 15:00 98.2 67 16 125/82 94 11/23/16 15:00 67 11/23/16 13:00 70 11/23/16 12:00 71 11/23/16 11:00 66 11/23/16 11:00 98.3 70 18 115/74 93 11/23/16 10:00 66 11/23/16 11/23/16 11/24/16 15:00 23:00 07:00 Intake Total 586 ml 515 ml Output Total 1 ml 1850 ml Balance 585 ml -1335 ml Intake Oral 550 ml 480 ml IV Total 36 ml 35 ml Output Urine Total 1850 ml Stool Total 1 ml # Voids 5 # Bowel Movements 1 Result Diagram: 11/23/16 0412 11/23/16 0412 Imaging Last Impressions Chest X-Ray 11/22/16 1503 Signed Impressions: Service Date/Time: Tuesday, November 22, 2016 15:06 - CONCLUSION: Bibasilar atelectasis. Ananth Mejias MD A/P Problem List: (1) Atrial fibrillation with RVR Status: Chronic Plan: - Pt has had multiple hospitalization for A.Fib in the last 2 month. This is his fourth. - Pt underwent EPS and ablation performed by Dr. Diamond (11/09/16) - Pt was discharged afterwards on eliquis and metoprolol - Pt now readmitted to [place] with c/o chest pain and palpitations - Telemetry on admission showed afib with RVR - Cardizem drip - Eliquis continued - Dr. Diamond following..await management decisions. on cardizem not and rate controlled. (2) Hypertension Status: Chronic Plan: stable. (3) GERD (gastroesophageal reflux disease) Status: Chronic Plan: - PPI (4) History of prostate cancer Status: Resolved Problem Qualifiers (1) Hypertension: Qualified Code: I10 - Essential hypertension Moises Mcdaniel MD Nov 24, 2016 09:05
--- NOTE | 2016-11-24 13:23 | HHI.PR ---
Subjective Remarks Had afib last night Objective Vital Signs Date Time Temp Pulse Resp B/P Pulse Ox O2 Delivery O2 Flow Rate FiO2 11/24/16 13:10 63 11/24/16 12:07 62 11/24/16 11:12 94 Nasal Cannula 2.00 11/24/16 11:12 64 11/24/16 11:12 98.0 64 18 99/59 94 11/24/16 10:10 61 11/24/16 09:29 65 11/24/16 07:36 96 Nasal Cannula 2.00 11/24/16 07:36 66 11/24/16 07:36 98.0 68 18 103/69 96 11/24/16 07:21 68 11/24/16 06:00 70 11/24/16 05:00 102 11/24/16 04:00 64 11/24/16 03:20 97.9 65 18 92/66 96 11/24/16 03:20 96 Nasal Cannula 2.00 11/24/16 03:00 64 11/24/16 02:00 86 11/24/16 01:00 121 11/24/16 00:52 83 11/24/16 00:48 105 11/24/16 00:00 103 11/23/16 23:59 137 11/23/16 23:10 95 Nasal Cannula 2.00 11/23/16 23:10 98.0 91 18 109/91 95 11/23/16 23:00 101 11/23/16 22:50 122 11/23/16 22:00 118 11/23/16 21:00 92 Nasal Cannula 2.00 11/23/16 21:00 160 11/23/16 20:45 98.2 145 18 136/92 92 11/23/16 20:45 92 Nasal Cannula 2.00 11/23/16 20:00 74 11/23/16 19:00 77 11/23/16 17:14 74 11/23/16 15:00 98.2 67 16 125/82 94 11/23/16 15:00 67 I/O 11/23/16 11/23/16 11/23/16 11/24/16 11/24/16 11/24/16 07:00 15:00 23:00 07:00 15:00 23:00 Intake Total 553 ml 586 ml 515 ml Output Total 825 ml 1 ml 1850 ml Balance -272 ml 585 ml -1335 ml Intake Oral 480 ml 550 ml 480 ml IV Total 73 ml 36 ml 35 ml Output Urine Total 825 ml 1850 ml Stool Total 1 ml # Voids 5 # Bowel Movements 1 Result Diagram: 11/23/1641111/23/16411 Imaging Alert, fully oriented, in bed Lungs: ventilated Heart: S1, S2 regular, no gallop Abdomen: soft, no mass Ext: no edema Last Impressions Chest X-Ray 11/22/16 1503 Signed Impressions: Service Date/Time: Tuesday, November 22, 2016 15:06 - CONCLUSION: Bibasilar atelectasis. Ananth Mejias MD Current Medications Medications (Trade) Dose Ordered Sig/Michelle Route Start Time Stop Time Status Last Admin (NS Flush) 2 ml UNSCH PRN IV FLUSH 11/22/16 17:30 (NS Flush) 2 ml BID IV FLUSH 11/22/16 21:00 11/24/16 09:04 (Tylenol) 650 mg Q4H PRN PO 11/22/16 17:30 (Zofran Inj) 4 mg Q6H PRN IVP 11/22/16 17:30 (Restoril) 15 mg HS PRN PO 11/22/16 17:30 11/22/16 21:29 (Narcan Inj) 0.4 mg UNSCH PRN IV 11/22/16 17:30 (Milk Of Magnesia Liq) 30 ml Q12H PRN PO 11/22/16 17:30 (Eliquis) 5 mg BID PO 11/22/16 21:00 11/24/16 09:03 (Lipitor) 40 mg HS PO 11/22/16 21:00 11/23/16 21:31 (Glucophage) 500 mg BIDPC PO 11/22/16 18:00 11/24/16 09:03 (Lopressor) 25 mg BID PO 11/22/16 21:00 11/24/16 09:03 Pantoprazole Sodium 40 mg 40 mg DAILY PO 11/23/16 09:00 11/24/16 09:03 (Cardizem Inj/NS Inj) 125 ml @ 0 mls/hr TITRATE IV 11/23/16 00:15 Assessment and Plan Problem List: (1) Atrial fibrillation with RVR Status: Chronic Plan: Back into sinus rhythm Recent ablation. May be still in the healing [hase. Will wait for redo except if HR cannot be controlled. For now, I will DC cardizem and metoprolol. Amio will be added Case discussed again extensively with patient (2) Chest pain Status: Acute Plan: Refers feeling his "heart siena" No acute ST changes. No chest pain Not sure what the patient is referred to. 2 D echo will be requested Problem Qualifiers (1) Chest pain: Qualified Code: R07.9 - Chest pain, unspecified type Maria T Diamond MD Nov 24, 2016 13:23
--- NOTE | 2016-11-24 13:32 | MB ---
cc: JAMAAL WATTERS HANSCY M.D. DATE OF CONSULTATION 11/23/2016 REASON FOR ELECTROPHYSIOLOGY CONSULTATION Atrial fibrillation. HISTORY OF PRESENT ILLNESS Mr. Carrasco is a 66-year-old gentleman with history of atrial fibrillation. He has a previous ablation at the end of October. The gentleman was discharged home. Subsequently he came to the emergency room with atrial fibrillation. He received Cardizem and went back into sinus rhythm. The gentleman referred he came to the emergency room more because it feels like squeezing of his heart whenever it is beating. I was consulted for evaluation and management. The chart was reviewed. The patient was evaluated, the case extensively discussed with him. ALLERGIES MONOSODIUM GLUTAMATE. SOCIAL HISTORY The gentleman at this point denies smoking and drinking. FAMILY HISTORY Noncontributory to his current medical condition. MEDICATIONS 1. Lisinopril. 2. Protonix. 3. Eliquis. 4. Cardizem. 5. Metformin. 6. Metoprolol. 7. Atorvastatin. REVIEW OF SYSTEMS Referred as the feeling better but feels "squeezing with every beat". No chest pain, no discomfort. PHYSICAL EXAMINATION GENERAL: Alert, fully oriented. VITAL SIGNS: His blood pressure on evaluation was 125/82, pulse 67, respiratory rate 18. LUNGS: Ventilated. CARDIOVASCULAR: S1, S2 regular. ABDOMEN: Soft. No mass. LOWER EXTREMITIES: No edema. ELECTROCARDIOGRAM Showed atrial fibrillation. TELEMETRY Showing currently sinus rhythm. LABORATORY DATA Hemoglobin 12.2, white blood cell count 5.6. Potassium 3.6, creatinine 0.69. INR 1.1. ASSESSMENT AND RECOMMENDATIONS Mr. Carrasco is in sinus rhythm. He had a recent ablation. He was back into sinus rhythm. At this point my recommendation is observation. The gentleman is still in the healing phase. I am going to discontinue the Cardizem and metoprolol. I am going to start him on amiodarone. The gentleman is complained about his heart is "squeezing". I am not sure what he means by that. There is no chest pain, no chest discomfort. Troponin is okay. If necessary I may be ordering an echo in the morning. I will monitor him during his hospitalization. MD ALEN Hurley/SSB /1:15 PM /1:29 PM
[2016-11-24] MEDS: AMIODARONE 200 MG TAB PO SCH ×2 (15:43→20:16)
[2016-11-24] MEDS: ATORVASTATIN 40 MG TAB PO SCH (20:16)
[2016-11-25] VITALS (27 sets, daily range): BP systolic 95–140; BP diastolic 56–82; PULSE 57–66; RESP 18–20; TEMP 97.8–98.5; O2SAT 94–98
--- NOTE | 2016-11-25 08:22 | HHI.PR ---
Subjective Remarks says he feels better. would like to go home Objective Vitals heart reg lung cta abd s/nt ext no edema Vital Signs Date Time Temp Pulse Resp B/P Pulse Ox O2 Delivery O2 Flow Rate FiO2 11/25/16 07:53 60 11/25/16 07:53 97.8 60 18 113/71 96 11/25/16 06:04 59 11/25/16 05:41 59 11/25/16 05:28 98.3 58 18 113/75 98 11/25/16 04:02 60 11/25/16 03:09 59 11/25/16 02:07 63 11/25/16 01:04 65 11/25/16 00:06 65 11/25/16 00:00 98.5 63 20 95/56 98 11/24/16 23:17 64 11/24/16 22:00 63 11/24/16 20:19 99.0 67 20 114/75 97 11/24/16 18:13 66 11/24/16 17:20 61 11/24/16 16:30 62 11/24/16 15:49 95 Room Air 11/24/16 15:49 98.0 68 18 105/66 95 11/24/16 15:49 68 11/24/16 13:10 63 11/24/16 12:07 62 11/24/16 11:12 94 Nasal Cannula 2.00 11/24/16 11:12 64 11/24/16 11:12 98.0 64 18 99/59 94 11/24/16 10:10 61 11/24/16 09:29 65 11/24/16 11/24/16 11/25/16 15:00 23:00 07:00 Intake Total 766 ml 240 ml Balance 766 ml 240 ml Intake Oral 720 ml 240 ml IV Total 46 ml # Voids 5 2 # Bowel Movements 1 Result Diagram: 11/23/16 0412 11/23/16 0412 Imaging Last Impressions Chest X-Ray 11/22/16 1503 Signed Impressions: Service Date/Time: Tuesday, November 22, 2016 15:06 - CONCLUSION: Bibasilar atelectasis. Ananth Mejias MD A/P Problem List: (1) Atrial fibrillation with RVR Status: Chronic Plan: - Pt has had multiple hospitalization for A.Fib in the last 2 month. This is his fourth. - Pt underwent EPS and ablation performed by Dr. Diamond (11/09/16) - Pt was discharged afterwards on eliquis and metoprolol - Pt now readmitted to [place] with c/o chest pain and palpitations - Telemetry on admission showed afib with RVR - Eliquis continued - Dr. Diamond following..off cardizem and bb. now on amiodarone. controlled so far. ambulate and assess control and d/c when ok with cardiology (2) Hypertension Status: Chronic Plan: stable. (3) GERD (gastroesophageal reflux disease) Status: Chronic Plan: - PPI (4) History of prostate cancer Status: Resolved Problem Qualifiers (1) Hypertension: Qualified Code: I10 - Essential hypertension Moises Mcdaniel MD Nov 25, 2016 08:22
[2016-11-25] MEDS: SODIUM CHLORIDE 0.9% FLUSH 10 ML FLUSH IV FLUSH SCH ×2 (09:00→21:00)
[2016-11-25] MEDS: PANTOPRAZOLE SOD 40 MG DELAYED RELEASE TAB PO SCH (09:30)
[2016-11-25] MEDS: AMIODARONE 200 MG TAB PO SCH ×2 (09:30→20:59)
[2016-11-25] MEDS: metFORMIN HCL 500 MG TAB PO SCH ×2 (09:30→18:25)
[2016-11-25] MEDS: APIXABAN 5 MG TABLET PO SCH ×2 (09:31→20:59)
--- NOTE | 2016-11-25 19:23 | HHI.PR ---
Subjective Remarks Feeling better Objective Vital Signs Date Time Temp Pulse Resp B/P Pulse Ox O2 Delivery O2 Flow Rate FiO2 11/25/16 18:20 65 11/25/16 17:12 60 11/25/16 16:39 57 11/25/16 15:31 66 11/25/16 15:31 Room Air 11/25/16 15:31 97.9 66 18 140/76 96 11/25/16 14:11 59 11/25/16 13:10 57 11/25/16 12:13 65 11/25/16 11:21 61 11/25/16 11:21 Room Air 11/25/16 11:21 97.8 61 18 107/70 94 11/25/16 10:08 64 11/25/16 09:18 60 11/25/16 08:01 62 11/25/16 07:53 60 11/25/16 07:53 97.8 60 18 113/71 96 11/25/16 06:04 59 11/25/16 05:41 59 11/25/16 05:28 98.3 58 18 113/75 98 11/25/16 04:02 60 11/25/16 03:09 59 11/25/16 02:07 63 11/25/16 01:04 65 11/25/16 00:06 65 11/25/16 00:00 98.5 63 20 95/56 98 11/24/16 23:17 64 11/24/16 22:00 63 11/24/16 20:19 99.0 67 20 114/75 97 I/O 11/24/16 11/24/16 11/24/16 11/25/16 11/25/16 11/25/16 06:59 14:59 22:59 06:59 14:59 22:59 Intake Total 515 ml 766 ml 240 ml 960 ml Output Total 1850 ml 250 ml Balance -1335 ml 766 ml 240 ml 710 ml Intake Oral 480 ml 720 ml 240 ml 960 ml IV Total 35 ml 46 ml Output Urine Total 1850 ml 250 ml # Voids 5 2 4 # Bowel Movements 1 1 1 Result Diagram: 11/23/1641111/23/16411 Imaging Alert, fully oriented Lungs: ventilated Heart: S1, S2 regular, no gallop Abdomen: soft, no mass Ext: no edema Assessment and Plan Problem List: (1) Atrial fibrillation with RVR Status: Chronic Plan: In sinus rhythm Doing welll Can be DH follow up in 3 weeks (2) Chest pain Status: Acute Plan: No chest pain reported Problem Qualifiers (1) Chest pain: Qualified Code: R07.9 - Chest pain, unspecified type Maria T Diamond MD Nov 25, 2016 19:23
[2016-11-25] MEDS: ATORVASTATIN 40 MG TAB PO SCH (20:59)
[2016-11-26] VITALS (8 sets, daily range): BP systolic 120–121; BP diastolic 75–81; PULSE 56–67; RESP 18; TEMP 98.2–98.4; O2SAT 95
[2016-11-26] MEDS: AMIODARONE 200 MG TAB PO SCH (08:11)
[2016-11-26] MEDS: PANTOPRAZOLE SOD 40 MG DELAYED RELEASE TAB PO SCH (08:11)
[2016-11-26] MEDS: metFORMIN HCL 500 MG TAB PO SCH (08:11)
[2016-11-26] MEDS: SODIUM CHLORIDE 0.9% FLUSH 10 ML FLUSH IV FLUSH SCH (08:12)
[2016-11-26] MEDS: APIXABAN 5 MG TABLET PO SCH (08:12)
--- NOTE | 2016-11-26 08:39 | HHI.PR ---
Subjective Remarks wants to go home. Objective Vitals heart reg lung cta abd s/nt ext no edema Vital Signs Date Time Temp Pulse Resp B/P Pulse Ox O2 Delivery O2 Flow Rate FiO2 11/26/16 08:00 98.2 63 18 121/75 95 11/26/16 08:00 Room Air 11/26/16 08:00 60 11/26/16 06:00 58 11/26/16 05:00 56 11/26/16 04:00 67 11/26/16 03:00 57 11/26/16 03:00 98.4 62 18 120/81 95 11/26/16 03:00 96 Room Air 11/26/16 02:00 57 11/26/16 01:00 64 11/26/16 00:00 63 11/25/16 23:00 96 Room Air 11/25/16 23:00 98.2 62 18 129/82 96 11/25/16 23:00 57 11/25/16 22:00 62 11/25/16 21:00 60 11/25/16 20:00 62 11/25/16 19:43 97 Room Air 11/25/16 19:43 98.2 63 18 123/74 97 11/25/16 19:00 66 11/25/16 18:20 65 11/25/16 17:12 60 11/25/16 16:39 57 11/25/16 15:31 66 11/25/16 15:31 Room Air 11/25/16 15:31 97.9 66 18 140/76 96 11/25/16 14:11 59 11/25/16 13:10 57 11/25/16 12:13 65 11/25/16 11:21 61 11/25/16 11:21 Room Air 11/25/16 11:21 97.8 61 18 107/70 94 11/25/16 10:08 64 11/25/16 09:18 60 11/25/16 11/25/16 11/26/16 15:00 23:00 07:00 Intake Total 960 ml 480 ml Output Total 250 ml 950 ml Balance 710 ml -470 ml Intake Oral 960 ml 480 ml Output Urine Total 250 ml 950 ml # Voids 4 # Bowel Movements 1 Result Diagram: 11/23/16 0412 11/23/16 0412 Imaging Last Impressions Chest X-Ray 11/22/16 1503 Signed Impressions: Service Date/Time: Tuesday, November 22, 2016 15:06 - CONCLUSION: Bibasilar atelectasis. Ananth Mejias MD A/P Problem List: (1) Atrial fibrillation with RVR Status: Chronic Plan: - Pt has had multiple hospitalization for A.Fib in the last 2 month. This is his fourth. - Pt underwent EPS and ablation performed by Dr. Velasquez (11/09/16) - Pt was discharged afterwards on eliquis and metoprolol - Pt now readmitted to [facility] with c/o chest pain and palpitations - Telemetry on admission showed afib with RVR - Eliquis continued - Dr. Velasquez following..off cardizem and bb. now on amiodarone. controlled so far. d/c home with amiodarone. f/u dr velasquez (2) Hypertension Status: Chronic Plan: stable. (3) GERD (gastroesophageal reflux disease) Status: Chronic Plan: - PPI (4) History of prostate cancer Status: Resolved Problem Qualifiers (1) Hypertension: Qualified Code: I10 - Essential hypertension Moises Mcdaniel MD Nov 26, 2016 08:39
[2016-11-26] MEDS ORDERED: AMIO200T PO (08:40)
--- NOTE | 2016-11-26 08:40 | HHI.DCPOC ---
Discharge Care Plan Diagnosis: (1) Atrial fibrillation with RVR Goals to Promote Your Health * To prevent worsening of your condition and complications * To maintain your health at the optimal level Directions to Meet Your Goals Take your medications as prescribed Follow your dietary instruction Follow activity as directed Keep your appointments as scheduled Take your immunizations and boosters as scheduled If your symptoms worsen call your PCP, if no PCP go to Urgent Care Center or Emergency Room Smoking is Dangerous to Your Health. Avoid second hand smoke Call the 24-hour hour crisis hotline for domestic abuse at Moises Mcdaniel MD Nov 26, 2016 08:40
== END 2016-11-26 09:43 | disposition home or self-care (01) | DRG 309 ==
LOC: NEPE 14:35 → NEDA 17:33 → HCIS 19:19
PROVIDERS: ADMIT Hospitalist; ATTEND Hospitalist
DX: I48.0 Paroxysmal atrial fibrillation (principal); J98.11 Atelectasis; I10 Essential (primary) hypertension; E11.9 Type 2 diabetes mellitus without complications; E78.5 Hyperlipidemia, unspecified; J44.9 Chronic obstructive pulmonary disease, unspecified; K21.9 Gastro-esophageal reflux disease without esophagitis; Z85.46 Personal history of malignant neoplasm of prostate; Z87.891 Personal history of nicotine dependence; N52.9 Male erectile dysfunction, unspecified; Z92.3 Personal history of irradiation
CPT/HCPCS: 71010; 80048; 82550; 84484; 85025; 85610; 85730; 93005; 96361; 96374; 96375; J2270; J7030

== ENCOUNTER 2016-12-01 09:20 | Observation (INO) | payer OTHER ==
[2016-12-01] VITALS (9 sets, daily range): BP systolic 116–158; BP diastolic 67–83; PULSE 73–92; RESP 20–24; TEMP 97.7–99.4; O2SAT 92–95
[~2016-12-01] VITALS: Ht 172.7 cm; Wt 74.0 kg
[~2016-12-01 09:20] MED LIST changes: +AMIO200T PO; +METF500T PO; -METO25TA6 PO
--- NOTE | 2016-12-01 09:27 | PD ---
HPI Chief Complaint: chest pain Time Seen by Provider: 09:27 Travel History International Travel<30 days: No Contact w/Intl Traveler<30days: No Traveled to known affect area: No History of Present Illness HPI 66-year-old male came to the emergency room brought by EMS for chest pain. Patient describes this pain as pressure and started this morning. He also continues to say that he is feeling palpitations. He was given 2 sublingual nitroglycerin sprays but as per the patient it hasn't eased the pressure. Patient is on Eliquis for atrial fibrillation. Vital signs are stable. Patient recently had an ablation done by Dr. Diamond which was successful. The 12 -lead EKG done by EMS was nonspecific. Patient describes the pain to be in the center of his chest and no radiation. [facility] Past Medical History Narrative Medical List of his past medical, surgical, social and family history is reviewed from the nursing note. Hx Anticoagulant Therapy: Yes Atrial Fibrillation: Yes Autoimmune Disease: No Blood Disorders: No Anxiety: Yes Depression: No Heart Rhythm Problems: Yes (Atrial Fib) Cancer: Yes (prostate) Cardiovascular Problems: Yes High Cholesterol: Yes Chemotherapy: No Chest Pain: Yes Congestive Heart Failure: No COPD: Yes Diabetes: Yes Diminished Hearing: No Endocrine: Yes Gastrointestinal Disorders: Yes GERD: Yes Genitourinary: Yes Hepatitis: No Hiatal Hernia: No Hypertension: Yes Immune Disorder: No Musculoskeletal: No Neurologic: No Psychiatric: Yes Reproductive: No Respiratory: Yes Immunizations Current: Yes Myocardial Infarction: No Radiation Therapy: Yes (5-6 years ago) Sleep Apnea: No Ulcer: No Past Surgical History Abdominal Surgery: No AICD: No Appendectomy: No Arteriovenous Shunt: No Cardiac Surgery: Yes (Ablation) Cholecystectomy: No Ear Surgery: No Endocrine Surgery: No Eye Surgery: No Genitourinary Surgery: No Gynecologic Surgery: No Insulin Pump: No Joint Replacement: No Oral Surgery: Yes (Tonsillectomy) Pacemaker: No Thoracic Surgery: No Tonsillectomy: Yes Other Surgery: Yes (Tonsilectomy) Social History Alcohol Use: Yes (SOCIAL) Tobacco Use: No (QUIT EARLY OCTOBER 2016) Substance Use: No Allergies-Medications (Allergen,Severity, Reaction): Coded Allergies: Monosodium Glutamate (Verified Allergy, Intermediate, Hives, 12/02/16) Comments List of his allergies reviewed from the nursing note. Reported Meds & Prescriptions Reported Meds & Active Scripts Active Naproxen 500 Mg Tab 500 Mg PO BID 5 Days Amiodarone (Amiodarone HCl) 200 Mg Tab 400 Mg PO DIRECTED 30 Days 400mg po bid x 10 days then 200mg po daily Lisinopril 10 Mg Tab 10 Mg PO DAILY Pantoprazole (Pantoprazole Sodium) 40 Mg Tab 40 Mg PO DAILY Eliquis (Apixaban) 5 Mg Tab 5 Mg PO BID Reported Metformin (Metformin HCl) 500 Mg Tab 500 Mg PO BIDPC With meals Atorvastatin (Atorvastatin Calcium) 40 Mg Tab 40 Mg PO HS Narrative Medication List of his home medications reviewed from the nursing note. Review of Systems Except as stated in HPI: all other systems reviewed are Neg Physical Exam Narrative GENERAL: Awake, alert, anxious, moderate distress SKIN: Focused skin assessment warm/dry. HEAD: Atraumatic. Normocephalic. EYES: Pupils equal and round. No scleral icterus. No injection or drainage. ENT: No nasal bleeding or discharge. Mucous membranes pink and moist. NECK: Trachea midline. No JVD. CARDIOVASCULAR: Regular rate and rhythm. No murmur appreciated. RESPIRATORY: No accessory muscle use. Clear to auscultation. Breath sounds equal bilaterally. GASTROINTESTINAL: Abdomen soft, non-tender, nondistended. Hepatic and splenic margins not palpable. MUSCULOSKELETAL: No obvious deformities. No clubbing. No cyanosis. No edema. NEUROLOGICAL: Awake and alert. No obvious cranial nerve deficits. Motor grossly within normal limits. Normal speech. PSYCHIATRIC: Appropriate mood and affect; insight and judgment normal. Data Data Last Documented VS Vital Signs Date Time Temp Pulse Resp B/P Pulse Ox O2 Delivery O2 Flow Rate FiO2 12/01/16 09:48 126/80 12/01/16 09:44 97.7 73 20 92 Nasal Cannula 2 Orders Electrocardiogram (12/01/16 09:31) Basic Metabolic Panel (Bmp) (12/01/16 09:31) Ckmb (Isoenzyme) Profile (12/01/16 09:31) Complete Blood Count With Diff (12/01/16 09:31) Magnesium (Mg) (12/01/16 09:31) Prothrombin Time / Inr (Pt) (12/01/16 09:31) Act Partial Throm Time (Ptt) (12/01/16 09:31) Troponin I (12/01/16 09:31) Chest, Single Ap (12/01/16 09:31) Ecg Monitoring (12/01/16 09:31) Bilateral Bp Monitoring (12/01/16 09:31) Iv Access Insert/Monitor (12/01/16 09:31) Oximetry (12/01/16 09:31) Oxygen Administration (12/01/16 09:31) Sodium Chloride 0.9% Flush (Ns Flush) (12/01/16 09:45) Drug Screen, Random Urine (12/01/16 09:31) Magnesium Sulfate 1 Gm Premix (Magnesium (12/01/16 10:45) Admit Order (Ed Use Only) (12/01/16 10:45) Labs Laboratory Tests Test 12/01/16 09:55 White Blood Count 9.4 TH/MM3 Red Blood Count 4.36 MIL/MM3 Hemoglobin 14.3 GM/DL Hematocrit 40.8 % Mean Corpuscular Volume 93.6 FL Mean Corpuscular Hemoglobin 32.7 PG Mean Corpuscular Hemoglobin 34.9 % Concent Red Cell Distribution Width 11.9 % Platelet Count 254 TH/MM3 Mean Platelet Volume 7.5 FL Neutrophils (%) (Auto) 82.0 % Lymphocytes (%) (Auto) 11.5 % Monocytes (%) (Auto) 5.3 % Eosinophils (%) (Auto) 0.6 % Basophils (%) (Auto) 0.6 % Neutrophils # (Auto) 7.7 TH/MM3 Lymphocytes # (Auto) 1.1 TH/MM3 Monocytes # (Auto) 0.5 TH/MM3 Eosinophils # (Auto) 0.1 TH/MM3 Basophils # (Auto) 0.1 TH/MM3 CBC Comment DIFF FINAL Differential Comment Prothrombin Time 11.7 SEC Prothromb Time International 1.1 RATIO Ratio Activated Partial 32.2 SEC Thromboplast Time Sodium Level 139 MEQ/L Potassium Level 3.8 MEQ/L Chloride Level 104 MEQ/L Carbon Dioxide Level 26.1 MEQ/L Anion Gap 9 MEQ/L Blood Urea Nitrogen 17 MG/DL Creatinine 0.87 MG/DL Estimat Glomerular Filtration 88 ML/MIN Rate Random Glucose 106 MG/DL Calcium Level 8.9 MG/DL Magnesium Level 1.3 MG/DL Total Creatine Kinase 43 U/L Troponin I LESS THAN 0.02 NG/ML MDM Medical Decision Making Medical Screen Exam Complete: Yes Emergency Medical Condition: Yes Medical Record Reviewed: Yes Interpretation(s) Twelve-lead EKG was reviewed by me. Normal sinus rhythm, normal axis, nonspecific ST-T wave changes. Heart rate of 76 bpm. Differential Diagnosis ACS, non-STEMI, nonspecific chest pain Narrative Course 9:47 AM awaiting for the blood test results. 11:10 AM blood test results are back and they are within acceptable limits. However patient does have risk factors and I have admitted him to the chest pain center to be ruled out. Procedures EKG Prior to Arrival: Yes Diagnosis Primary Impression: Chest pain Qualified Code: R07.9 - Chest pain, unspecified type Admitting Information Admitting Physician Requests: Observation Scripts Naproxen 500 Mg [id number] Mg PO BID 5 Days Ref 0 Prov:Zaina Glynn 12/01/16 Monica Esqueda MD Dec 01, 2016 09:27
[2016-12-01] MEDS ORDERED: SODIUM CHLORIDE 0.9% FLUSH 10 ML FLUSH IVF PRN (09:45)
[2016-12-01 10:12] LABS: AUTOMATED NEUTROPHIL # 7.7 TH/MM3 (1.8-7.7); BASOPHIL # 0.1 TH/MM3 (0-0.2); BASOPHIL % 0.6 % (0.0-2.0); EOSINOPHIL # 0.1 TH/MM3 (0-0.4); EOSINOPHIL % 0.6 % (0.0-4.0); HEMATOCRIT 40.8 % (39.0-51.0); HEMO FLAGS DIFF FINAL; LYMPH % 11.5 % (9.0-44.0); LYMPHOCYTE # 1.1 TH/MM3 (1.0-4.8); MEAN CELL VOLUME 93.6 FL (80.0-100.0); MEAN CORPUSCULAR HEMOGLOBIN 32.7 PG (27.0-34.0); MEAN CORPUSCULAR HGB CONC 34.9 % (32.0-36.0); MONO % 5.3 % (0.0-8.0); PLATELET COUNT 254 TH/MM3 (150-450); RED BLOOD COUNT 4.36 MIL/MM3 (4.50-5.90); RED CELL DISTRIBUTION WIDTH 11.9 % (11.6-17.2); WHITE BLOOD COUNT 9.4 TH/MM3 (4.0-11.0)
--- NOTE | 2016-12-01 10:17 | RADRPT ---
EXAM DATE/TIME: 12/01/2016 09:46 [facility] COMPARISON: CHEST SINGLE AP, November 22, 2016, 15:06. INDICATIONS : Chest pain. MEDICAL HISTORY : Cardiovascular disease. Hypertension SURGICAL HISTORY : None. ENCOUNTER: Initial ACUITY: 1 day PAIN SCORE: 6/10 LOCATION: Bilateral chest FINDINGS: Bibasilar linear parenchymal opacities similar to previous examination. No new focal pleural or paren chymal opacities. Cardiomediastinal contours are stable. Remainder of exam is unchanged. CONCLUSION: 1. Stable bibasilar atelectasis/scarring. 2. No acute abnormality or interval change. Jose Luis Khoury MD on December 01, 2016 at 10:14 Board Certified Radiologist. This report was verified electronically.
[2016-12-01 10:21] LABS: APTT (PATIENT) 32.2 SEC (24.3-30.1); INTERNATIONAL NORMALIZED RATIO 1.1 RATIO; PROTHROMBIN TIME - PATIENT 11.7 SEC (9.8-11.6)
[2016-12-01 10:36] LABS: ANION GAP 9 MEQ/L (5-15); BICARBONATE 26.1 MEQ/L (21.0-32.0); BLOOD UREA NITROGEN 17 MG/DL (7-18); CHLORIDE 104 MEQ/L (98-107); GLOMERULAR FILTRATION RATE 88 ML/MIN (>89); MAGNESIUM 1.3 MG/DL (1.5-2.5); POTASSIUM 3.8 MEQ/L (3.5-5.1); SODIUM (NA) 139 MEQ/L (136-145)
[2016-12-01 10:37] LABS: CREATINE KINASE 43 U/L (39-308)
[2016-12-01] MEDS ORDERED: MAGNESIUM SULFATE 1 GM PREMIX 100 ML IV ONE (10:45)
[2016-12-01] MEDS ORDERED: MORPHINE SULFATE 4 MG/ML INJ IV PUSH ONE (11:30)
[2016-12-01] MEDS ORDERED: ONDANSETRON HCL 4 MG/2 ML VIAL IV PRN (12:00)
[2016-12-01] MEDS ORDERED: ACETAMINOPHEN 500 MG CPLT PO PRN (12:00)
[2016-12-01] MEDS ORDERED: NITROGLYCERIN 0.4 MG SL 25 TABS/BTL SL PRN (12:00)
--- NOTE | 2016-12-01 13:57 | HHI.HP ---
[facility] Primary Care Physician Kyra Dickens MD Chief Complaint Chest pain History of Present Illness Mr. Carrasco is a 66-year-old male patient with a known medical history of atrial fibrillation on Eliquis, HTN, diabetes, hyperlipidemia, GERD and multiple recent hospital admissions who presented to the ED with complaints of chest pain. Patient states he was awoken suddenly out of his sleep with anterior chest pain, throbbing in nature and noticed significant associated palpitations. At that time patient states pain was a 6/10 on pain scale. Pain worsens when sitting up, increased movement and with deep breathing. Pain is reproducible with palpation. Patient does state one hour after symptoms began he attempted taking his regularly scheduled medications which had no relief. He also mentions that he experienced this same pain last evening around 5pm but suddenly went away after a few minutes. Denies any recent illness, cough, shortness of breath, abdominal pain. Denies any associated diaphoresis, nausea or vomiting. Patient states these symptoms are similar to when he goes into a fib RVR. Level Vial Grinder is Dr. Diamond, last seen on 11/09/16 when he underwent EPS with ablation. This is patient's fifth hospitalization in the last couple months. Summary of recent hospitalizations Hospitalized at [facility] 10/10-10/12/16 during which he had a Lexiscan on which noted no reversible perfusion defects. Patient was discharged on oral Cardizem, Lopressor, and Eliquis during that admission. Admitted 10/23-10/26/16 again with A. fib RVR and was given IV Cardizem with conversion to normal sinus rhythm. His dose of oral Cardizem was increased to 240 mg daily and metoprolol was stopped. Patient was seen by and was recommended to have evaluation by electrophysiology and possible EPS study with ablation per which was scheduled for November 16, 2016. Hospitalized 11/02 - 11/10/16. Underwent EPS with ablation performed by Dr. Diamond (11/09/16). Pt was discharged on Eliquis and metoprolol. Admitted 11/22/16 with c/o chest pain and palpitation which started today at 3PM at rest. Found in a fib RVR. Given Cardizem IV. Patient at that time discharged on amiodarone, continued Eliquis and to follow up with Dr. Diamond. Review of Systems Cardiovascular: COMPLAINS OF: Chest pain, Palpitations, Tachycardia Past Family Social History Allergies: Coded Allergies: Monosodium Glutamate (Verified Allergy, Intermediate, Hives, 12/01/16) Past Medical History Paroxysmal atrial fibrillation Hypertension DM Hyperlipidemia GERD Erectile dysfunction History of prostate cancer, received radiation therapy Hx of tobacco use Past Surgical History Repair of left ankle fracture following orthopedic injuries secondary to a fall [facility] 2006 [facility] 10/2016 EPS with ablation performed by Dr. Diamond (11/09/16) Reported Medications Reported Meds & Active Scripts Active Amiodarone (Amiodarone HCl) 200 Mg Tab 400 Mg PO DIRECTED 30 Days 400mg po bid x 10 days then 200mg po daily Lisinopril 10 Mg Tab 10 Mg PO DAILY Pantoprazole (Pantoprazole Sodium) 40 Mg Tab 40 Mg PO DAILY Eliquis (Apixaban) 5 Mg Tab 5 Mg PO BID Reported Metformin (Metformin HCl) 500 Mg Tab 500 Mg PO BIDPC With meals Atorvastatin (Atorvastatin Calcium) 40 Mg Tab 40 Mg PO HS Active Ordered Medications Current Medications Medications (Trade) Dose Ordered Sig/Michelle Route Start Time Stop Time Status Last Admin (NS Flush) 2 ml UNSCH PRN IVF 12/01/16 09:45 (NS Flush) 2 ml BID IV FLUSH 12/01/16 21:00 (Tylenol) 500 mg Q4H PRN PO 12/01/16 12:00 (Zofran Inj) 4 mg Q6H PRN IV 12/01/16 12:00 (Nitrostat Sl) 0.4 mg Q5M PRN SL 12/01/16 12:00 (Aspirin) 325 mg DAILY PO 12/02/16 09:00 Family History Paternal medical history significant for liver cancer, . Maternal family medical history significant for CA of unknown origin, . Denies any significant family medical history of cardiovascular disease. Social History Patient is . Does admit to tobacco use x 45 years. Has quit smoking in . Admits to occasional alcohol use. Denies any illicit drug use. Physical Exam Vital Signs Vital Signs Date Time Temp Pulse Resp B/P Pulse Ox O2 Delivery O2 Flow Rate FiO2 12/01/16 09:48 126/80 12/01/16 09:47 135/83 12/01/16 09:44 97.7 73 20 135/83 92 Nasal Cannula 2 12/01/16 09:43 92 Nasal Cannula 2 12/01/16 09:43 20 92 Nasal Cannula 2 12/01/16 09:25 97.7 75 20 135/83 92 Physical Exam GENERAL: Well-nourished, well-developed male patient, complaining of 6/10 chest discomfort. SKIN: No rashes, ecchymoses or lesions. Warm and dry. HEENT: Atraumatic. Normocephalic. Pupils equal round and reactive. No scleral icterus. No injection or drainage. Nose without bleeding. Airway patent. NECK: Trachea midline. No JVD. Supple. CARDIOVASCULAR: Tachycardic. No murmur appreciated. RESPIRATORY: Clear to auscultation. Breath sounds equal bilaterally. No wheezes , rales, or rhonchi. GASTROINTESTINAL: Abdomen soft, non-tender, nondistended. No hepato-splenomegaly , or palpable masses. No guarding. MUSCULOSKELETAL: Extremities without clubbing, cyanosis, or edema. No joint tenderness, effusion, or edema noted. NEUROLOGICAL: Awake and alert. Cranial nerves II through XII intact. Motor and sensory grossly within normal limits. Five out of 5 muscle strength in all muscle groups. Normal speech. Laboratory Laboratory Tests Test 12/01/16 09:55 White Blood Count 9.4 Red Blood Count 4.36 Hemoglobin 14.3 Hematocrit 40.8 Mean Corpuscular Volume 93.6 Mean Corpuscular Hemoglobin 32.7 Mean Corpuscular Hemoglobin 34.9 Concent Red Cell Distribution Width 11.9 Platelet Count 254 Mean Platelet Volume 7.5 Neutrophils (%) (Auto) 82.0 Lymphocytes (%) (Auto) 11.5 Monocytes (%) (Auto) 5.3 Eosinophils (%) (Auto) 0.6 Basophils (%) (Auto) 0.6 Neutrophils # (Auto) 7.7 Lymphocytes # (Auto) 1.1 Monocytes # (Auto) 0.5 Eosinophils # (Auto) 0.1 Basophils # (Auto) 0.1 CBC Comment DIFF FINAL Differential Comment Prothrombin Time 11.7 Prothromb Time International 1.1 Ratio Activated Partial 32.2 Thromboplast Time Sodium Level 139 Potassium Level 3.8 Chloride Level 104 Carbon Dioxide Level 26.1 Anion Gap 9 Blood Urea Nitrogen 17 Creatinine 0.87 Estimat Glomerular Filtration 88 Rate Random Glucose 106 Calcium Level 8.9 Magnesium Level 1.3 Total Creatine Kinase 43 Troponin I LESS THAN 0.02 Result Diagram: 12/01/16 0955 12/01/16 0955 Imaging Last Impressions Chest X-Ray 12/01/16 0931 Signed Impressions: Service Date/Time: Thursday, December 01, 2016 09:46 - CONCLUSION: 1. Stable bibasilar atelectasis/scarring. 2. No acute abnormality or interval change. Jose Luis Khoury MD Assessment and Plan Assessment and Plan #1 Chest pain: likely musculoskeletal in nature. Admitted to chest pain center. Serial troponins and EKGs ordered to rule out Will be seen by Dr. Maricarmen Morales for further evaluation and work up. Was given Morphine IV x 1 in ED. Will order one dose of Toradol 30 mg IV. #2 Hypomagnesium - Given 1 gram magnesium IV x 1 in ED. #3 Hypertension - Relatively controlled. Continue home Lisinopril. Monitor. #4 Atrial fibrillation - Currently in sinus tachycardia, no presence of atrial fibrillation since presentation. Will continue home Amiodarone 400 mg PO BID for now. Patient was told to decrease dose to 200 mg PO daily this 07/17. Continue home Eliquis. Will continue continuous cardiac monitoring. #5 Diabetes - Patient NPO at this time. Will hold metformin and monitor. #6 Hyperlipidemia - Continue home atorvastatin. #7 GERD - Continue home Protonix. Patient is agreeable to the plan of care. 15:30 Seen and evaluated by Dr. Morales. Chest pain musculoskeletal, plan for discharge this afternoon. Patient does not want to be discharged due to continued discomfort with movement and palpation of aware. Will call Dr Diamond and Dr Young to make aware of patient arrival to chest pain center. 15:[address] Diamond, updated him on admission to patient and current complaints. MD duarteay with discharge and Naproxen and aware patient taking Eliquis. 16:[address] Young, no further cardiac testing at this time. Zaina Glynn Dec 01, 2016 13:57
[2016-12-01] MEDS ORDERED: KETOROLAC TROMETHAMINE 30 MG/ML (IVP) VIAL IV PUSH ONE (15:00)
[2016-12-01] MEDS ORDERED: NAPR500T PO (17:05)
--- NOTE | 2016-12-01 17:07 | HHI.DCPOC ---
Discharge Care Plan Diagnosis: (1) Musculoskeletal chest pain Goals to Promote Your Health * To prevent worsening of your condition and complications * To maintain your health at the optimal level Directions to Meet Your Goals Take your medications as prescribed Follow your dietary instruction Follow activity as directed Keep your appointments as scheduled Take your immunizations and boosters as scheduled If your symptoms worsen call your PCP, if no PCP go to Urgent Care Center or Emergency Room Smoking is Dangerous to Your Health. Avoid second hand smoke Call the 24-hour hour crisis hotline for domestic abuse at Zaina Glynn Dec 01, 2016 17:07
[2016-12-01 17:12] LABS: AMPHETAMINE, URINE NEG (NEG); BARBITURATES, URINE NEG (NEG); COCAINE, URINE NEG (NEG)
[2016-12-01] MEDS ORDERED: ATORVASTATIN 40 MG TAB PO SCH (21:00)
[2016-12-01] MEDS ORDERED: AMIODARONE 200 MG TAB PO SCH (21:00)
[2016-12-01] MEDS ORDERED: SODIUM CHLORIDE 0.9% FLUSH 10 ML FLUSH IV FLUSH SCH (21:00)
[2016-12-01] MEDS ORDERED: APIXABAN 5 MG TABLET PO SCH (21:00)
[2016-12-02] MEDS ORDERED: TYLETAB34 PO (03:49)
[2016-12-02] MEDS ORDERED: LEVA750T9 PO (03:49)
[2016-12-02] MEDS ORDERED: ASPIRIN 325 MG TAB PO SCH (09:00)
[2016-12-02] MEDS ORDERED: PANTOPRAZOLE SOD 40 MG DELAYED RELEASE TAB PO SCH (09:00)
[2016-12-02] MEDS ORDERED: LISINOPRIL 10 MG TAB PO SCH (09:00)
--- NOTE | 2016-12-02 11:50 | EKG ---
Date Performed: 12/01/2016 Time Performed: 09:35:33 PTAGE: 66 years EKG: Sinus rhythm NONSPECIFIC T-WAVE ABNORMALITY BORDERLINE ECG PREVIOUS TRACING : 11/22/2016 14.50 DOCTOR: Ramiro Arredondo Interpretating Date/Time 12/02/2016 11:49:53
== END 2016-12-01 17:58 | disposition home or self-care (01) ==
LOC: NEPE 09:20 → NEDA 10:55 → NEPFCDU 13:28
PROVIDERS: ADMIT Internal Medicine Interventional Cardiology; ATTEND Internal Medicine Interventional Cardiology
DX: R07.89 Other chest pain (principal); I10 Essential (primary) hypertension; I48.91 Unspecified atrial fibrillation; E11.9 Type 2 diabetes mellitus without complications; K21.9 Gastro-esophageal reflux disease without esophagitis; E78.5 Hyperlipidemia, unspecified; E78.00 Pure hypercholesterolemia, unspecified; E83.42 Hypomagnesemia; J44.9 Chronic obstructive pulmonary disease, unspecified; F41.9 Anxiety disorder, unspecified; Z87.891 Personal history of nicotine dependence; Z85.46 Personal history of malignant neoplasm of prostate; Z79.01 Long term (current) use of anticoagulants; Z92.3 Personal history of irradiation; Z79.899 Other long term (current) drug therapy; Z79.84 Long term (current) use of oral hypoglycemic drugs
CPT/HCPCS: 71010; 80048; 80307; 82550; 83735; 84484; 85025; 85610; 85730; 93005; 96365; 96375; 99285; G0378; J1885; J2270; J3475

== ENCOUNTER 2016-12-02 01:06 | Emergency (ER) | payer OTHER ==
[~2016-12-02] VITALS: Ht 175.3 cm; Wt 72.0 kg
[~2016-12-02 01:06] MED LIST changes: +NAPR500T PO
[2016-12-02 01:10] VITALS: BP 122/75; PULSE 86; RESP 18; TEMP 98.4; O2SAT 89
[2016-12-02 01:20] VITALS: RESP 18; O2SAT 95
--- NOTE | 2016-12-02 01:20 | PD ---
HPI Chief Complaint: Chest Pain Time Seen by Provider: 01:07 Travel History International Travel<30 days: No Contact w/Intl Traveler<30days: No Traveled to known affect area: No History of Present Illness HPI 66-year-old male complains of chest pain. Patient states that his chest pain started this morning and has been persistent since then. Patient states the pain and pressure pain aching pain localized around the substernal area. Patient denies any pain radiation. Patient states that he has palpitation and diaphoresis with the chest pain. Patient denies any nausea vomiting. Patient states that the chest pain is worse with deep inspiration or movement. Patient was seen in emergency room this morning admitted to the chest pain center. Serial EKG cardiac enzymes were normal. Patient was discharged home this afternoon with prescription for Naprosyn. Patient has not filled the prescription as directed. Patient states that he has persistent pain this evening and EMS was called. Patient was transported to the ED for evaluation. Patient has history of atrial fibrillation on Eliquis, hypertension, diabetes, hyperlipidemia. Patient quit smoking recently. Patient was admitted in October 2016 during which she had a Lexiscan on October 12, 2016 which noted no reversible perfusion defects. Patient was admitted in October again for atrial fibrillation with RVR and given Cardizem. Patient was admitted in October and underwent EPS with ablation procedure by Dr. Diamond. Patient again was admitted November 22, 2016 with chest pain and palpitation. Patient was in A. fib with RVR at that time the patient was discharged home on amiodarone and continue with Eliquis. PFSH Past Medical History Hx Anticoagulant Therapy: Yes Atrial Fibrillation: Yes Autoimmune Disease: No Blood Disorders: No Anxiety: Yes Depression: No Heart Rhythm Problems: Yes (Atrial Fib) Cancer: Yes (prostate) Cardiovascular Problems: Yes High Cholesterol: Yes Chemotherapy: No Chest Pain: Yes Congestive Heart Failure: No COPD: Yes Diabetes: Yes Diminished Hearing: No Endocrine: Yes Gastrointestinal Disorders: Yes GERD: Yes Genitourinary: Yes Hepatitis: No Hiatal Hernia: No Hypertension: Yes Immune Disorder: No Musculoskeletal: No Neurologic: No Psychiatric: Yes Reproductive: No Respiratory: Yes Immunizations Current: Yes Myocardial Infarction: No Radiation Therapy: Yes (5-6 years ago) Sleep Apnea: No Ulcer: No Past Surgical History Abdominal Surgery: No AICD: No Appendectomy: No Arteriovenous Shunt: No Cardiac Surgery: Yes (Ablation) Cholecystectomy: No Ear Surgery: No Endocrine Surgery: No Eye Surgery: No Genitourinary Surgery: No Gynecologic Surgery: No Insulin Pump: No Joint Replacement: No Oral Surgery: Yes (Tonsillectomy) Pacemaker: No Thoracic Surgery: No Tonsillectomy: Yes Other Surgery: Yes (Tonsilectomy) Social History Alcohol Use: Yes (SOCIAL) Tobacco Use: No (QUIT EARLY OCTOBER 2016) Substance Use: No Allergies-Medications (Allergen,Severity, Reaction): Coded Allergies: Monosodium Glutamate (Verified Allergy, Intermediate, Hives, 12/02/16) Reported Meds & Prescriptions Reported Meds & Active Scripts Active Naproxen 500 Mg Tab 500 Mg PO BID 5 Days Amiodarone (Amiodarone HCl) 200 Mg Tab 400 Mg PO DIRECTED 30 Days 400mg po bid x 10 days then 200mg po daily Lisinopril 10 Mg Tab 10 Mg PO DAILY Pantoprazole (Pantoprazole Sodium) 40 Mg Tab 40 Mg PO DAILY Eliquis (Apixaban) 5 Mg Tab 5 Mg PO BID Reported Metformin (Metformin HCl) 500 Mg Tab 500 Mg PO BIDPC With meals Atorvastatin (Atorvastatin Calcium) 40 Mg Tab 40 Mg PO HS Review of Systems General / Constitutional: No: Fever Eyes: No: Visual changes HENT: No: Headaches Cardiovascular: Positive: Chest Pain or Discomfort Respiratory: No: Shortness of Breath Gastrointestinal: No: Abdominal Pain Genitourinary: No: Dysuria Musculoskeletal: No: Pain Skin: No Rash Neurologic: No: Weakness Psychiatric: No: Depression Endocrine: No: Polydipsia Hematologic/Lymphatic: No: Easy Bruising Physical Exam Narrative GENERAL: Well-nourished, well-developed patient. SKIN: Focused skin assessment warm/dry. HEAD: Normocephalic. EYES: No scleral icterus. No injection or drainage. NECK: Supple, trachea midline. No JVD or lymphadenopathy. CARDIOVASCULAR: Regular rate and rhythm without murmurs, gallops, or rubs. Patient had reproducible tenderness around the sternal area on palpation. RESPIRATORY: Breath sounds equal bilaterally. No accessory muscle use. GASTROINTESTINAL: Abdomen soft, non-tender, nondistended. MUSCULOSKELETAL: No cyanosis, or edema. BACK: Nontender without obvious deformity. No CVA tenderness. Neurologic exam normal. Data Data Last Documented VS Vital Signs Date Time Temp Pulse Resp B/P Pulse Ox O2 Delivery O2 Flow Rate FiO2 12/02/16 01:20 18 95 Nasal Cannula 3 12/02/16 01:10 98.4 86 122/75 Orders Electrocardiogram (12/02/16 01:08) Complete Blood Count With Diff (12/02/16 01:08) Comprehensive Metabolic Panel (12/02/16 01:08) Creatine Kinase (Cpk) (12/02/16 01:08) Troponin I (12/02/16 01:08) Prothrombin Time / Inr (Pt) (12/02/16 01:08) Act Partial Throm Time (Ptt) (12/02/16 01:08) D-Dimer (12/02/16 01:08) Thyroid Stimulating Hormone (12/02/16 01:08) Chest, Single Ap (12/02/16 01:08) Iv Access Insert/Monitor (12/02/16 01:08) Ecg Monitoring (12/02/16 01:08) Oximetry (12/02/16 01:08) Ct Pulmonary Angiogram (12/02/16 01:12) Ketorolac Inj (Toradol Inj) (12/02/16 02:15) Iohexol 350 Inj (Omnipaque 350 Inj) (12/02/16 03:02) Levofloxacin (Levaquin) (12/02/16 03:45) Labs Laboratory Tests Test 12/02/16 01:10 White Blood Count 11.7 TH/MM3 Red Blood Count 4.24 MIL/MM3 Hemoglobin 13.9 GM/DL Hematocrit 39.6 % Mean Corpuscular Volume 93.4 FL Mean Corpuscular Hemoglobin 32.8 PG Mean Corpuscular Hemoglobin 35.1 % Concent Red Cell Distribution Width 12.1 % Platelet Count 261 TH/MM3 Mean Platelet Volume 7.5 FL Neutrophils (%) (Auto) 86.4 % Lymphocytes (%) (Auto) 7.0 % Monocytes (%) (Auto) 6.2 % Eosinophils (%) (Auto) 0.0 % Basophils (%) (Auto) 0.4 % Neutrophils # (Auto) 10.1 TH/MM3 Lymphocytes # (Auto) 0.8 TH/MM3 Monocytes # (Auto) 0.7 TH/MM3 Eosinophils # (Auto) 0.0 TH/MM3 Basophils # (Auto) 0.0 TH/MM3 CBC Comment DIFF FINAL Differential Comment Prothrombin Time 13.1 SEC Prothromb Time International 1.2 RATIO Ratio Activated Partial 35.1 SEC Thromboplast Time D-Dimer Quantitative (PE/DVT) 0.26 MG/L FEU Sodium Level 135 MEQ/L Potassium Level 3.6 MEQ/L Chloride Level 100 MEQ/L Carbon Dioxide Level 23.6 MEQ/L Anion Gap 11 MEQ/L Blood Urea Nitrogen 17 MG/DL Creatinine 1.03 MG/DL Estimat Glomerular Filtration 73 ML/MIN Rate Random Glucose 112 MG/DL Calcium Level 8.5 MG/DL Total Bilirubin 1.6 MG/DL Aspartate Amino Transf 10 U/L (AST/SGOT) Alanine Aminotransferase 23 U/L (ALT/SGPT) Alkaline Phosphatase 85 U/L Total Creatine Kinase 37 U/L Troponin I LESS THAN 0.02 NG/ML Total Protein 6.8 GM/DL Albumin 3.2 GM/DL Thyroid Stimulating Hormone 1.050 uIU/ML [address] [place] [address] Medical Decision Making Medical Screen Exam Complete: Yes Emergency Medical Condition: Yes Interpretation(s) Last Impressions Chest X-Ray 12/02/16107 Signed Impressions: Service Date/Time: Friday, December 02, 2016 01:25 - CONCLUSION: No acute disease. Mt Dodd MD 2 33 AM. CBC WBC 11.7. 86 neutrophil. CMP within normal limit. Total bili 1.6. Cardiac enzymes are normal. Last Impressions CT Angiography 12/02/16111 Signed Impressions: Service Date/Time: Friday, December 02, 2016 02:56 - CONCLUSION: 1. No evidence of pulmonary embolism. 2. Small to moderate pericardial effusion. 3. Mild dense consolidation in both posterior lung bases left greater than right. 4. Minimal pleural fluid. Mt Dodd MD Chest X-Ray 12/02/16107 Signed Impressions: Service Date/Time: Friday, December 02, 2016 01:25 - CONCLUSION: No acute disease. Mt Dodd MD Differential Diagnosis Differential diagnosis including musculoskeletal, angina, IN, PE, pneumothorax. Narrative Course 66-year-old male with recurrent chest pain. History of atrial fibrillation status post ablation. Toradol 30 mg IV. Levaquin 750 mg by mouth. Diagnosis Primary Impression: Atypical chest pain Additional Impression: Pneumonia Qualified Code: J18.9 - Pneumonia of both lower lobes due to infectious organism Patient Instructions: General Instructions Additional Instructions: Take medications as needed for pain. Levaquin as directed. Follow-up with personal physician. Return if worse. Med/Other Pt SpecificInfo: Prescription(s) given Scripts Acetaminophen-Codeine (Tylenol-Codeine #3)300-30 mg Tab1-2 Tab PO Q6H PRN (PAIN ) #30 TAB Ref 0 Prov:Reymundo Unger MD 12/02/16 Levofloxacin (Levaquin)750 Mg Tablet1 Tab PO DAILY #10 Prov:Reymundo Unger MD 12/02/16 Disposition: 01 DISCHARGE HOME Condition: Stable Reymundo Unger MD Dec 02, 2016 01:20
[2016-12-02 01:38] LABS: AUTOMATED NEUTROPHIL # 10.1 TH/MM3 (1.8-7.7); BASOPHIL % 0.4 % (0.0-2.0); HEMATOCRIT 39.6 % (39.0-51.0); HEMO FLAGS DIFF FINAL; LYMPHOCYTE # 0.8 TH/MM3 (1.0-4.8); MEAN CELL VOLUME 93.4 FL (80.0-100.0); MEAN CORPUSCULAR HEMOGLOBIN 32.8 PG (27.0-34.0); MEAN CORPUSCULAR HGB CONC 35.1 % (32.0-36.0); MONO % 6.2 % (0.0-8.0); NEUT % 86.4 % (16.0-70.0); PLATELET COUNT 261 TH/MM3 (150-450); RED BLOOD COUNT 4.24 MIL/MM3 (4.50-5.90); RED CELL DISTRIBUTION WIDTH 12.1 % (11.6-17.2); WHITE BLOOD COUNT 11.7 TH/MM3 (4.0-11.0)
[2016-12-02 01:52] LABS: APTT (PATIENT) 35.1 SEC (24.3-30.1); INTERNATIONAL NORMALIZED RATIO 1.2 RATIO; PROTHROMBIN TIME - PATIENT 13.1 SEC (9.8-11.6)
--- NOTE | 2016-12-02 01:58 | RADRPT ---
EXAM DATE/TIME: 12/02/2016 01:25 [facility] COMPARISON: CHEST SINGLE AP, December 01, 2016, 9:46. INDICATIONS : Chest pain. MEDICAL HISTORY : None. SURGICAL HISTORY : None. ENCOUNTER: Initial ACUITY: 1 day PAIN SCORE: 0/10 LOCATION: Bilateral chest FINDINGS: A single view of the chest demonstrates the lungs to be symmetrically aerated without evidence of mas s, infiltrate or effusion. The cardiomediastinal contours are unremarkable. Osseous structures are intact. There are multiple overlying electrocardiogram leads. CONCLUSION: No acute disease. Mt Dodd MD on December 02, 2016 at 1:56 Board Certified Radiologist. This report was verified electronically.
[2016-12-02 02:07] LABS: ALT (GPT) 23 U/L (12-78); ANION GAP 11 MEQ/L (5-15); AST (GOT) 10 U/L (15-37); BICARBONATE 23.6 MEQ/L (21.0-32.0); BLOOD UREA NITROGEN 17 MG/DL (7-18); CHLORIDE 100 MEQ/L (98-107); GLOMERULAR FILTRATION RATE 73 ML/MIN (>89); POTASSIUM 3.6 MEQ/L (3.5-5.1); SODIUM (NA) 135 MEQ/L (136-145)
[2016-12-02] MEDS ORDERED: KETOROLAC TROMETHAMINE 30 MG/ML (IVP) VIAL IV PUSH ONE (02:15)
[2016-12-02 02:17] LABS: ALKALINE PHOSPHATASE 85 U/L (45-117); TOTAL BILIRUBIN ADULT 1.6 MG/DL (0.2-1.0)
[2016-12-02 02:21] LABS: CREATINE KINASE 37 U/L (39-308)
[2016-12-02] MEDS ORDERED: IOHEXOL 350 MG/ML 10 ML VIAL (for RAD DIAG) IV ONE (03:02)
--- NOTE | 2016-12-02 03:11 | RADRPT ---
EXAM DATE/TIME: 12/02/2016 02:56 [facility] COMPARISON: CHEST SINGLE AP, December 02, 2016, 1:25. INDICATIONS : Mid chest pain and shortness of breath. IV CONTRAST: 75 cc Omnipaque 350 (iohexol) IV RADIATION DOSE: 23.44 CTDIvol (mGy) MEDICAL HISTORY : Hypertension. Chronic obstructive pulmonary disease. Gastroesophageal reflux disease.Diabetes. Prosta te cancer. SURGICAL HISTORY : None. ENCOUNTER: Initial ACUITY: 2 days PAIN SCALE: 9/10 LOCATION: chest TECHNIQUE: Volumetric scanning of the chest was performed using a pulmonary embolism protocol MIP images were re constructed. Using automated exposure control and adjustment of the mA and/or kV according to patien t size, radiation dose was kept as low as reasonably achievable to obtain optimal diagnostic quality images. DICOM format image data is available electronically for review and comparison. Follow-up recommendations for incidentally detected pulmonary nodules are based at a minimum on nodul e size and patient risk factors according to Fleischner Society Guidelines. FINDINGS: PULMONARY ARTERIES: No filling defects are seen in the pulmonary arteries through the segmental level. LUNGS: There is no pneumothorax . No concerning pulmonary nodule is visualized. There is underlying emphyse ma with mild hyperinflation. There is dense consolidation in both posterior lung bases left greater t norman right. PLEURAE: There is no focal pleural effusion. There is minimal pleural fluid bilaterally left greater than righ t adjacent to the consolidation. MEDIASTINUM: There is good visualization of the great vessels of the middle mediastinum. No evidence of mediastin al or hilar adenopathy/mass. There is a small to moderate pericardial effusion. Coronary artery calci fications are present. MUSCULOSKELETAL: Within normal limits for patient age. MISCELLANEOUS: The visualized upper abdominal organs demonstrate no acute abnormality. CONCLUSION: 1. No evidence of pulmonary embolism. 2. Small to moderate pericardial effusion. 3. Mild dense consolidation in both posterior lung bases left greater than right. 4. Minimal pleural fluid. Mt Dodd MD on December 02, 2016 at 3:07 Board Certified Radiologist. This report was verified electronically.
[2016-12-02] MEDS ORDERED: LEVOFLOXACIN 750 MG TAB PO ONE (03:45)
[2016-12-02] MEDS ORDERED: LEVA750T9 PO (03:49)
[2016-12-02] MEDS ORDERED: TYLETAB34 PO (03:49)
--- NOTE | 2016-12-02 09:08 | EKG ---
Date Performed: 12/02/2016 Time Performed: 01:07:53 PTAGE: 66 years EKG: Sinus rhythm NONSPECIFIC ST ELEVATION PROLONGED QT INTERVAL ABNORMAL ECG PREVIOUS TRACING : 12/01/2016 09.35 DOCTOR: Ramiro Arredondo Interpretating Date/Time 12/02/2016 09:07:25
== END 2016-12-02 05:39 | disposition home or self-care (01) ==
LOC: NEPC 01:06
DX: J18.9 Pneumonia, unspecified organism (principal); I48.91 Unspecified atrial fibrillation; E78.00 Pure hypercholesterolemia, unspecified; J44.9 Chronic obstructive pulmonary disease, unspecified; E11.9 Type 2 diabetes mellitus without complications; I10 Essential (primary) hypertension; Z79.01 Long term (current) use of anticoagulants; Z87.891 Personal history of nicotine dependence; Z85.46 Personal history of malignant neoplasm of prostate
CPT/HCPCS: 71010; 71275; 80053; 82550; 84443; 84484; 85025; 85379; 85610; 85730; 93005; 96374; 99285; J1885; Q9967

== ENCOUNTER 2016-12-07 07:55 | Inpatient (IN) | payer OTHER ==
[~2016-12-07] VITALS: Ht 172.7 cm; Wt 79.0 kg
[2016-12-07] VITALS (14 sets, daily range): BP systolic 98–132; BP diastolic 56–96; PULSE 73–130; RESP 16–20; TEMP 98.4; O2SAT 90–96
[~2016-12-07 07:55] MED LIST changes: +LEVA750T9 PO; +TYLETAB34 PO
[2016-12-07] MEDS ORDERED: DILTIAZEM HCL 25 MG/5 ML VIAL IV ONE (08:15)
[2016-12-07] MEDS ORDERED: PANTOPRAZOLE SODIUM 40 MG VIAL IV PUSH ONE (08:15)
--- NOTE | 2016-12-07 08:19 | PD ---
HPI Chief Complaint: Cold / Flu Symptoms Time Seen by Provider: 08:02 Travel History International Travel<30 days: No Contact w/Intl Traveler<30days: No Traveled to known affect area: No History of Present Illness HPI 66-year-old male complains of chest pain shortness of breath and dyspepsia. Patient has history of recurrent chest pain. Patient states that the pain accommodation sharp pain in pressure pain localized around the substernal area. Patient denies any pain radiation. Patient complains of palpitation this morning. Patient states that probably his atrial fibrillation problem. Patient denies any coughing congestion fever chills. Patient complains of a lot of burping this morning. Patient denies any nausea vomiting diarrhea. Patient denies abdominal pain. Patient was seen several times in the emergency room recently for the same problem. Patient has history of atrial fibrillation on Eliquis and amiodarone, hypertension, diabetes, hyperlipidemia. Patient states that he quit smoking recently. Patient has been seen by Dr. Diamond and status post EPS ablation in October 2016. PFSH Past Medical History Hx Anticoagulant Therapy: Yes Atrial Fibrillation: Yes Autoimmune Disease: No Blood Disorders: No Anxiety: Yes Depression: No Heart Rhythm Problems: Yes (Atrial Fib) Cancer: Yes (prostate) Cardiovascular Problems: Yes High Cholesterol: Yes Chemotherapy: No Chest Pain: Yes Congestive Heart Failure: No COPD: Yes Diabetes: Yes Diminished Hearing: No Endocrine: Yes Gastrointestinal Disorders: Yes GERD: Yes Genitourinary: Yes Hepatitis: No Hiatal Hernia: No Hypertension: Yes Immune Disorder: No Musculoskeletal: No Neurologic: No Psychiatric: Yes Reproductive: No Respiratory: Yes Immunizations Current: Yes Myocardial Infarction: No Radiation Therapy: Yes (5-6 years ago) Sleep Apnea: No Ulcer: No Past Surgical History Abdominal Surgery: No AICD: No Appendectomy: No Arteriovenous Shunt: No Cardiac Surgery: Yes (Ablation) Cholecystectomy: No Ear Surgery: No Endocrine Surgery: No Eye Surgery: No Genitourinary Surgery: No Gynecologic Surgery: No Insulin Pump: No Joint Replacement: No Oral Surgery: Yes (Tonsillectomy) Pacemaker: No Thoracic Surgery: No Tonsillectomy: Yes Other Surgery: Yes (Tonsilectomy) Social History Alcohol Use: Yes (SOCIAL) Tobacco Use: No (QUIT EARLY OCTOBER 2016) Substance Use: No Allergies-Medications (Allergen,Severity, Reaction): Coded Allergies: Monosodium Glutamate (Verified Allergy, Intermediate, Hives, 12/02/16) Reported Meds & Prescriptions Reported Meds & Active Scripts Active Tylenol-Codeine #3 (Acetaminophen-Codeine) 300-30 mg Tab 1-2 Tab PO Q6H PRN Levaquin (Levofloxacin) 750 Mg Tablet 1 Tab PO DAILY Amiodarone (Amiodarone HCl) 200 Mg Tab 400 Mg PO DIRECTED 30 Days 400mg po bid x 10 days then 200mg po daily Lisinopril 10 Mg Tab 10 Mg PO DAILY Pantoprazole (Pantoprazole Sodium) 40 Mg Tab 40 Mg PO DAILY Eliquis (Apixaban) 5 Mg Tab 5 Mg PO BID Reported Atorvastatin (Atorvastatin Calcium) 40 Mg Tab 40 Mg PO HS Review of Systems General / Constitutional: No: Fever Eyes: No: Visual changes HENT: No: Headaches Cardiovascular: Positive: Chest Pain or Discomfort, Palpitations Respiratory: No: Shortness of Breath Gastrointestinal: No: Abdominal Pain Genitourinary: No: Dysuria Musculoskeletal: No: Pain Skin: No Rash Neurologic: No: Weakness Psychiatric: No: Depression Endocrine: No: Polydipsia Hematologic/Lymphatic: No: Easy Bruising Physical Exam Narrative GENERAL: Well-nourished, well-developed patient. SKIN: Focused skin assessment warm/dry. HEAD: Normocephalic. EYES: No scleral icterus. No injection or drainage. NECK: Supple, trachea midline. No JVD or lymphadenopathy. CARDIOVASCULAR: Irregularly irregular rate and rhythm without murmurs, gallops, or rubs. RESPIRATORY: Breath sounds equal bilaterally. No accessory muscle use. GASTROINTESTINAL: Abdomen soft, non-tender, nondistended. MUSCULOSKELETAL: No cyanosis, or edema. BACK: Nontender without obvious deformity. No CVA tenderness. Neurologic exam normal. Data Data Last Documented VS Vital Signs Date Time Temp Pulse Resp B/P Pulse Ox O2 Delivery O2 Flow Rate FiO2 12/07/16 09:14 125 18 101/72 92 Nasal Cannula 3 12/07/16 08:00 98.4 Orders Electrocardiogram (12/07/16 08:10) Complete Blood Count With Diff (12/07/16 08:10) Comprehensive Metabolic Panel (12/07/16 08:10) Creatine Kinase (Cpk) (12/07/16 08:10) Troponin I (12/07/16 08:10) B-Type Natriuretic Peptide (12/07/16 08:10) Prothrombin Time / Inr (Pt) (12/07/16 08:10) Act Partial Throm Time (Ptt) (12/07/16 08:10) Thyroid Stimulating Hormone (12/07/16 08:10) Chest, Single Ap (12/07/16 08:10) Iv Access Insert/Monitor (12/07/16 08:10) Ecg Monitoring (12/07/16 08:10) Oxygen Administration (12/07/16 08:10) Oximetry (12/07/16 08:10) Diltiazem Inj (Cardizem Inj) (12/07/16 08:15) Sodium Chlor 0.9% 1000 Ml Inj (Ns 1000 M (12/07/16 08:15) Pantoprazole Inj (Protonix Inj) (12/07/16 08:15) Vital Signs (Adult) Q15MX4,Q4H (12/07/16 08:50) Compensation Specialist / Telemetry GARRET.Q8H (12/07/16 08:50) Cardiac Rhythm GARRET.Q8H (12/07/16 08:50) Notify Dr: Other (12/07/16 08:50) Diltiazem Inj (Cardizem Inj) (12/07/16 09:00) Digoxin Inj (Lanoxin Inj) (12/07/16 09:15) Sodium Chlorid 0.9% 500 Ml Inj (Ns 500 M (12/07/16 09:30) Sodium Chlorid 0.9% 500 Ml Inj (Ns 500 M (12/07/16 09:30) Consult Cardiology (12/07/16 ) Admit Order (Ed Use Only) (12/07/16 09:39) Labs Laboratory Tests Test 12/07/16 08:15 White Blood Count 13.3 TH/MM3 Red Blood Count 4.13 MIL/MM3 Hemoglobin 13.2 GM/DL Hematocrit 38.5 % Mean Corpuscular Volume 93.2 FL Mean Corpuscular Hemoglobin 31.9 PG Mean Corpuscular Hemoglobin 34.3 % Concent Red Cell Distribution Width 12.3 % Platelet Count 336 TH/MM3 Mean Platelet Volume 8.0 FL Neutrophils (%) (Auto) 82.7 % Lymphocytes (%) (Auto) 8.9 % Monocytes (%) (Auto) 8.0 % Eosinophils (%) (Auto) 0.2 % Basophils (%) (Auto) 0.2 % Neutrophils # (Auto) 11.0 TH/MM3 Lymphocytes # (Auto) 1.2 TH/MM3 Monocytes # (Auto) 1.1 TH/MM3 Eosinophils # (Auto) 0.0 TH/MM3 Basophils # (Auto) 0.0 TH/MM3 CBC Comment DIFF FINAL Differential Comment Prothrombin Time 15.1 SEC Prothromb Time International 1.3 RATIO Ratio Activated Partial 38.3 SEC Thromboplast Time Sodium Level 122 MEQ/L Potassium Level 3.7 MEQ/L Chloride Level 88 MEQ/L Carbon Dioxide Level 19.3 MEQ/L Anion Gap 15 MEQ/L Blood Urea Nitrogen 33 MG/DL Creatinine 1.24 MG/DL Estimat Glomerular Filtration 59 ML/MIN Rate Random Glucose 126 MG/DL Calcium Level 8.5 MG/DL Total Bilirubin 1.1 MG/DL Aspartate Amino Transf 18 U/L (AST/SGOT) Alanine Aminotransferase 25 U/L (ALT/SGPT) Alkaline Phosphatase 113 U/L Total Creatine Kinase 65 U/L Troponin I LESS THAN 0.02 NG/ML B-Type Natriuretic Peptide 176 PG/ML Total Protein 6.8 GM/DL Albumin 2.7 GM/DL Thyroid Stimulating Hormone 0.645 uIU/ML [facility] Medical Decision Making Medical Screen Exam Complete: Yes Emergency Medical Condition: Yes Medical Record Reviewed: Yes Interpretation(s) 10:31 AM. CBC WBC 13.3. Hemoglobin 13.2 hematocrit 38.5. 82 neutrophil. Sodium 122. Bicarbonate 19.3. UA and 33. Cardiac enzymes are normal. BNP 17. Differential Diagnosis Differential diagnosis including atrial fibrillation with RVR, atypical chest pain, angina, IN, PE, pneumothorax. Narrative Course 66-year-old male with recurrent chest pain and atrial fibrillation with RVR. Patient has multiple visits to the emergency room for chest pain. EKG and cardiac enzymes have been negative. Dr. Diamond came to see the patient. Advised Cardizem bolus and drip, digoxin bolus 0.5 mg IV, [facility] admission for ablation procedure tomorrow. Normal saline solution 1 L IV bolus given. Normal saline solution 100 cc an hour. Diagnosis Primary Impression: Atrial fibrillation with RVR Additional Impressions: Chest pain Qualified Code: R07.9 - Chest pain, unspecified type Hyponatremia Admitting Information Admitting Physician Requests: Admit Reymundo Unger MD Dec 07, 2016 08:19
[2016-12-07] MEDS: SODIUM CHLOR 0.9% 1000 ML INJ 1,000 ML IV SCH ×2 (08:24→19:20)
[2016-12-07 09:00] LABS: BASOPHIL % 0.2 % (0.0-2.0); EOSINOPHIL % 0.2 % (0.0-4.0); HEMATOCRIT 38.5 % (39.0-51.0); HEMO FLAGS DIFF FINAL; LYMPH % 8.9 % (9.0-44.0); LYMPHOCYTE # 1.2 TH/MM3 (1.0-4.8); MEAN CELL VOLUME 93.2 FL (80.0-100.0); MEAN CORPUSCULAR HEMOGLOBIN 31.9 PG (27.0-34.0); MEAN CORPUSCULAR HGB CONC 34.3 % (32.0-36.0); NEUT % 82.7 % (16.0-70.0); PLATELET COUNT 336 TH/MM3 (150-450); RED BLOOD COUNT 4.13 MIL/MM3 (4.50-5.90); RED CELL DISTRIBUTION WIDTH 12.3 % (11.6-17.2); WHITE BLOOD COUNT 13.3 TH/MM3 (4.0-11.0)
--- NOTE | 2016-12-07 09:02 | RADRPT ---
EXAM DATE/TIME: 12/07/2016 08:16 [facility] COMPARISON: CHEST SINGLE AP, December 02, 2016, 1:25. CT PULMONARY ANGIOGRAM, December 02, 2016, 2:56. INDICATIONS : Patient has been short of breath for one week. MEDICAL HISTORY : Cardiovascular disease. Hypertension SURGICAL HISTORY : None. ENCOUNTER: Initial ACUITY: 1 week PAIN SCORE: 0/10 LOCATION: Bilateral chest FINDINGS: There is a right base infiltrate. Moderate enlargement of the cardiac silhouette, significantly incre ased from recent previous exam raising possibility of pericardial effusion.. Likely small pleural eff usions. Pulmonary vascularity is stable and grossly normal CONCLUSION: Right base infiltrate. Likely small effusions. Change in cardiac silhouette appearance raises the pos sibility of pericardial effusion or Davey Butler MD on December 07, 2016 at 8:54 Board Certified Radiologist. This report was verified electronically.
[2016-12-07 09:09] LABS: APTT (PATIENT) 38.3 SEC (24.3-30.1); INTERNATIONAL NORMALIZED RATIO 1.3 RATIO; PROTHROMBIN TIME - PATIENT 15.1 SEC (9.8-11.6)
[2016-12-07] MEDS ORDERED: DIGOXIN 0.5 MG/2 ML VIAL IV PUSH ONE (09:15)
[2016-12-07] MEDS ORDERED: SODIUM CHLORID 0.9% 500 ML INJ 500 ML IV ONE ×2 (09:30)
[2016-12-07 09:48] LABS: ALKALINE PHOSPHATASE 113 U/L (45-117); ALT (GPT) 25 U/L (12-78); ANION GAP 15 MEQ/L (5-15); AST (GOT) 18 U/L (15-37); BICARBONATE 19.3 MEQ/L (21.0-32.0); BLOOD UREA NITROGEN 33 MG/DL (7-18); CHLORIDE 88 MEQ/L (98-107); GLOMERULAR FILTRATION RATE 59 ML/MIN (>89); POTASSIUM 3.7 MEQ/L (3.5-5.1); TOTAL BILIRUBIN ADULT 1.1 MG/DL (0.2-1.0)
[2016-12-07] MEDS: DILTIAZEM INJ 125 MG in SODIUM CHLORIDE 0.9% INJ 100 ML IV SCH ×2 (09:48→19:42)
[2016-12-07 10:07] LABS: CREATINE KINASE 65 U/L (39-308)
[2016-12-07 10:10] LABS: SODIUM (NA) 122 MEQ/L (136-145)
[2016-12-07] MEDS ORDERED: RESP: ALBUTEROL 2.5 MG/IPRATROPIUM 0.5 MG NEB (SCH) INH ONE (11:15)
--- NOTE | 2016-12-07 11:36 | HHI.HP ---
HPI Service [facility] Hospitalists Primary Care Physician Kyra Dickens MD Admission Diagnosis atrial fibrillation with RVR. Chest pain. Chief Complaint: cp/palpitation Travel History International Travel<30 Days: No Contact w/Intl Traveler <30 Da: No Traveled to Known Affected Are: No History of Present Illness Pt is 66 yo with recurrent afib/rvr. He has undergone ablation x 1. He has been on amiodarone, multaq,lopressor, digoxin, and cardizem. He has had more palpitations and cp. He was seen in ED again this past week and given levaquin for possible pna. I spoke to that ED doctor and clinically it was probably not pna. he was seen in cp center as well. He had a negative lexiscan a few months ago. A CTA chest done 5 days ago showed some basilar consolidations and a new moderate size pericardial effusion. Review of Systems Other cp and palpitation. Past Family Social History Past Medical History Paroxysmal atrial fibrillation Hypertension DM Hyperlipidemia GERD Erectile dysfunction History of prostate cancer, received radiation therapy Hx of tobacco use Repair of left ankle fracture following orthopedic injuries secondary to a fall EPS with ablation performed by Dr. Diamond (11/09/16) Reported Medications Reported Meds & Active Scripts Active Tylenol-Codeine #3 (Acetaminophen-Codeine) 300-30 mg Tab 1-2 Tab PO Q6H PRN Levaquin (Levofloxacin) 750 Mg Tablet 1 Tab PO DAILY Amiodarone (Amiodarone HCl) 200 Mg Tab 400 Mg PO DIRECTED 30 Days 400mg po bid x 10 days then 200mg po daily Lisinopril 10 Mg Tab 10 Mg PO DAILY Pantoprazole (Pantoprazole Sodium) 40 Mg Tab 40 Mg PO DAILY Eliquis (Apixaban) 5 Mg Tab 5 Mg PO BID Reported Atorvastatin (Atorvastatin Calcium) 40 Mg Tab 40 Mg PO HS Allergies: Coded Allergies: Monosodium Glutamate (Verified Allergy, Intermediate, Hives, 12/02/16) Family History Mother secondary to cancer, possibly lung cancer Father age 78, possibly due to unspecified liver disease Patient has 2 brothers and 2 sisters, some of whom have hypertension Social History (+)Hx of tobacco, patient has smoked one pack per day for the last 45 years, quit 2 months ago (+)Alcohol use, 2 beers per day, Denies any illicit drug use Physical Exam Vital Signs heent neg heart irreg lung few course bs bases abd s/nt ext no edema Vital Signs Date Time Temp Pulse Resp B/P Pulse Ox O2 Delivery O2 Flow Rate FiO2 12/07/16 11:30 100 16 107/77 94 Nasal Cannula 3 12/07/16 10:37 119 16 105/72 92 Room Air 3 12/07/16 09:49 120 16 102/68 92 Nasal Cannula 3 12/07/16 09:14 125 18 101/72 92 Nasal Cannula 3 12/07/16 09:01 118 98/71 92 Nasal Cannula 3 12/07/16 08:33 90 Nasal Cannula 3 12/07/16 08:33 130 18 104/67 90 Nasal Cannula 3 12/07/16 08:28 90 Nasal Cannula 2 12/07/16 08:00 98.4 120 130/96 90 Laboratory Laboratory Tests Test 12/07/16 08:15 White Blood Count 13.3 Red Blood Count 4.13 Hemoglobin 13.2 Hematocrit 38.5 Mean Corpuscular Volume 93.2 Mean Corpuscular Hemoglobin 31.9 Mean Corpuscular Hemoglobin 34.3 Concent Red Cell Distribution Width 12.3 Platelet Count 336 Mean Platelet Volume 8.0 Neutrophils (%) (Auto) 82.7 Lymphocytes (%) (Auto) 8.9 Monocytes (%) (Auto) 8.0 Eosinophils (%) (Auto) 0.2 Basophils (%) (Auto) 0.2 Neutrophils # (Auto) 11.0 Lymphocytes # (Auto) 1.2 Monocytes # (Auto) 1.1 Eosinophils # (Auto) 0.0 Basophils # (Auto) 0.0 CBC Comment DIFF FINAL Differential Comment Prothrombin Time 15.1 Prothromb Time International 1.3 Ratio Activated Partial 38.3 Thromboplast Time Sodium Level 122 Potassium Level 3.7 Chloride Level 88 Carbon Dioxide Level 19.3 Anion Gap 15 Blood Urea Nitrogen 33 Creatinine 1.24 Estimat Glomerular Filtration 59 Rate Random Glucose 126 Calcium Level 8.5 Total Bilirubin 1.1 Aspartate Amino Transf 18 (AST/SGOT) Alanine Aminotransferase 25 (ALT/SGPT) Alkaline Phosphatase 113 Total Creatine Kinase 65 Troponin I LESS THAN 0.02 B-Type Natriuretic Peptide 176 Total Protein 6.8 Albumin 2.7 Thyroid Stimulating Hormone 0.645 3rd Gen Result Diagram: 12/07/16 0815 12/07/16 0815 Assessment and Plan Problem List: (1) Atrial fibrillation with RVR Status: Chronic Plan: Recurrent afib/rvr. s/p ablation x 1 lexiscan negative Pt noted to have a pericardial effusion on recent CT chest and this is most likely secondary to inflammation from the cardiac ablation. I repeated the echo...call by dr Arredondo and he says it is at least moderate size..currently no collapse of right atria/ventricle and no tamponade physiology so far I will call Dr Diamond as he is planning to do EP study and ablation in the morning. The effusion may need drained. cont cardizem gtt hold eliquis. (2) Hyponatremia Status: Acute Plan: probably related to dehydration/hypovolemia will gently hydrate with saline and monitor na urine na, osmols. serum osmols. (3) Pericardial effusion Status: Acute Plan: see above (4) Lung consolidation Status: Acute Plan: has been on levaquin but not clearly pna. (5) Hypertension Status: Chronic (6) COPD (chronic obstructive pulmonary disease) Status: Chronic Physician Certification 2 Midnight Certification Type: Admission for Inpatient Services Order for Inpatient Services 3The services are ordered in accordance with Medicare regulations or non- Medicare payer requirements, as applicable. In the case of services not specified as inpatient-only, they are appropriately provided as inpatient services in accordance with the 2-midnight benchmark. Estimated LOS (days): 3 3 days is the estimated time the patient will need to remain in the hospital, assuming treatment plan goals are met and no additional complications. Post-Hospital Plan: Home Moises Mcdaniel MD Dec 07, 2016 11:36
--- NOTE | 2016-12-07 15:24 | EKG ---
Date Performed: 12/07/2016 Time Performed: 08:11:18 PTAGE: 66 years EKG: ATRIAL FLUTTER/TACHYCARDIA WITH RAPID VENTRICULAR RESPONSE LOW QRS VOLTAGE IN EXTREMITY JACIEL DS ACUTE PERICARDITIS - EXCLUDE ACUTE CO ACUTE CO Consider acute pericarditis vs anterolateral and inferior injury pattern. Clinical correlation recommended. Prolonged corrected QT interval. PREVIOUS TRACING : 12/02/2016 01.07 DOCTOR: Fernando Moy Interpretating Date/Time 12/07/2016 15:23:05
--- NOTE | 2016-12-07 17:15 | ECHRPT ---
Indication: Pleural effusion, not elsewhere classified CONCLUSIONS Normal left ventricular size. Wall thickness is normal. The left ventricular systolic function is low normal with an estimated ejection fraction in the rang e of 50- 55%. Mitral annular calcification is present. There is trace tricuspid valve regurgitation. There is estimated mild pulmonary hypertension present ( 46 mmHg). The pulmonary valve is not well visualized. There is a moderate pericardial effusion present. The possibility of hemodynamic compromise cannot be excluded on the basis of the available images. Clinical correlation is recommended.. No associated right atrial or right ventricular chamber collapse was noted. There was abnormal respirophasic change in transvalvular flow velocities observed. BP: / HR: Rhythm: MEASUREMENTS (Male / Female) Normal Values Technical Quality: 2D ECHO LV Diastolic Diameter PLAX 5.1 cm 4.2 - 5.9 / 3.9 - 5.3 cm LV Systolic Diameter PLAX 4.2 cm IVS Diastolic Thickness 1.0 cm 0.6 - 1.0 / 0.6 - 0.9 cm LVPW Diastolic Thickness 0.9 cm 0.6 - 1.0 / 0.6 - 0.9 cm LV Relative Wall Thickness 0.4 RV Internal Dim ED PLAX 2.1 cm M-MODE Aortic Root Diameter MM 3.7 cm AV Cusp Separation MM 1.9 cm DOPPLER Mitral E Point Velocity 56.3 cm/s Mitral A Point Velocity 72.1 cm/s Mitral E to A Ratio 0.8 TR Peak Velocity 278.0 cm/s TR Peak Gradient 30.9 mmHg FINDINGS LEFT VENTRICLE Normal left ventricular size. Wall thickness is normal. The left ventricular systolic function is low normal with an estimated ejection fraction in the rang e of 50- 55%. RIGHT VENTRICLE Normal right ventricular size and systolic function. LEFT ATRIUM The left atrial size is normal. RIGHT ATRIUM The right atrial size is normal. ATRIAL SEPTUM Normal atrial septal thickness without atrial level shunting by limited color doppler interrogation. AORTA The aortic root and proximal ascending aorta are normal in size on limited imaging. MITRAL VALVE Mitral annular calcification is present. AORTIC VALVE Trileaflet aortic valve. No aortic valve stenosis or regurgitation. TRICUSPID VALVE There is trace tricuspid valve regurgitation. There is estimated mild pulmonary hypertension present ( 46 mmHg). PULMONARY VALVE The pulmonary valve is not well visualized. VESSELS The inferior vena cava is normal in size. PERICARDIUM There is a moderate pericardial effusion present. The possibility of hemodynamic compromise cannot be excluded on the basis of the available images. Clinical correlation is recommended.. No associated right atrial or right ventricular chamber collapse was noted. There was abnormal respirophasic change in transvalvular flow velocities observed. Ramiro Arredondo MD, FACC (Electronically Signed) Final Date:07 December 2016 17:14
[2016-12-07] MEDS ORDERED: DEXTROSE 5% IN WATE 1000ML INJ 1,000 ML IV SCH (21:00)
[2016-12-07] MEDS: ATORVASTATIN 40 MG TAB PO SCH (21:16)
[2016-12-08] VITALS (16 sets, daily range): BP systolic 106–139; BP diastolic 62–76; PULSE 64–80; RESP 16–22; TEMP 97–98.6; O2SAT 90–97
[2016-12-08] MEDS ORDERED: methylPREDNISolone SOD SUCC 40 MG/1 ML VIAL IV ONE (03:15)
[2016-12-08] MEDS ORDERED: RESP: ALBUTEROL 2.5 MG/IPRATROPIUM 0.5 MG NEB (PRN) NEB (03:15)
[2016-12-08] MEDS: DILTIAZEM INJ 125 MG in SODIUM CHLORIDE 0.9% INJ 100 ML IV SCH (06:41)
[2016-12-08] MEDS ORDERED: MIDAZOLAM HCL 2 MG/2 ML VIAL ONE ×2 (06:57→08:23)
[2016-12-08] MEDS ORDERED: SODIUM CHLOR 0.9% 250 ML INJ 250 ML ONE (06:57)
[2016-12-08] MEDS ORDERED: ISOPROTERENOL HCL 1 MG/5 ML AMP ONE (06:57)
[2016-12-08] MEDS ORDERED: HEPARIN SODIUM - IV 10,000 UNITS/10 ML VIAL ONE (07:04)
[2016-12-08] MEDS ORDERED: HEPARIN-NS/PF INJ 500 ML ONE (07:04)
[2016-12-08] MEDS ORDERED: HYDROCORTISONE SOD SUCCINATE 100 MG VIAL ONE (07:39)
[2016-12-08 07:53] LABS: BICARBONATE 23.2 MEQ/L (21.0-32.0); POTASSIUM 4.2 MEQ/L (3.5-5.1)
--- NOTE | 2016-12-08 08:10 | HHI.PR ---
Subjective Remarks Tired Objective Vital Signs Date Time Temp Pulse Resp B/P Pulse Ox O2 Delivery O2 Flow Rate FiO2 12/08/16 04:28 97.0 80 22 139/66 92 12/08/16 04:24 91 Nasal Cannula 5.00 12/08/16 04:00 91 Nasal Cannula 5.00 12/08/16 01:00 Nasal Cannula 4.00 12/08/16 00:05 98.6 66 18 109/66 91 12/08/16 00:00 70 12/07/16 21:52 74 20 117/73 95 Nasal Cannula 3 12/07/16 19:31 75 20 123/74 96 Nasal Cannula 2 12/07/16 17:41 77 121/77 92 Nasal Cannula 3 12/07/16 15:20 73 16 132/90 93 Nasal Cannula 3 12/07/16 13:28 75 16 117/70 93 Nasal Cannula 3 12/07/16 12:15 104 16 110/56 93 Nasal Cannula 3 12/07/16 11:30 100 16 107/77 94 Nasal Cannula 3 12/07/16 11:22 93 Nasal Cannula 3.00 12/07/16 10:37 119 16 105/72 92 Room Air 3 12/07/16 09:49 120 16 102/68 92 Nasal Cannula 3 12/07/16 09:14 125 18 101/72 92 Nasal Cannula 3 12/07/16 09:01 118 98/71 92 Nasal Cannula 3 12/07/16 08:33 90 Nasal Cannula 3 12/07/16 08:33 130 18 104/67 90 Nasal Cannula 3 12/07/16 08:28 90 Nasal Cannula 2 I/O 12/07/16 12/07/16 12/07/16 12/08/16 12/08/16 12/08/16 07:00 15:00 23:00 07:00 15:00 23:00 Intake Total 0 ml Output Total 400 ml 1050 ml 700 ml Balance -400 ml -1050 ml -700 ml Intake Oral 0 ml Output Urine Total 400 ml 1050 ml 700 ml # Voids 3 # Bowel Movements 0 Result Diagram: 12/07/16 0815 12/08/16 0625 Imaging Alert, fully oriented lungs : Ventilated, no rale, no crackle Abdomen: soft, no mass Ext: no edema Last Impressions Chest X-Ray 12/07/16 0810 Signed Impressions: Service Date/Time: Wednesday, December 07, 2016 08:16 - CONCLUSION: Right base infiltrate. Likely small effusions. Change in cardiac silhouette appearance raises the possibility of pericardial effusion or Davey Butler MD Current Medications Medications (Trade) Dose Ordered Sig/Michelle Route Start Time Stop Time Status Last Admin (Cardizem Inj/NS Inj) 125 ml @ 0 mls/hr TITRATE IV 12/07/16 09:00 12/08/16 06:41 (Lipitor) 40 mg HS PO 12/07/16 21:00 12/07/16 21:16 Pantoprazole Sodium 40 mg 40 mg DAILY PO 12/08/16 09:00 (D5W 1000 ml Inj) 1,000 ml @ 50 mls/hr Q20H IV 12/07/16 21:00 12/07/16 21:16 Assessment and Plan Problem List: (1) Atrial fibrillation with RVR Status: Chronic Plan: On IV cardizem. HR control 2 D echo shows large pericardial effusion Afib may be due to inflammatory response Because effusion is so large and malignancy has to be ruled out also, pericardiocentesis requested. colchicine will be initiated. Ablation cancel (2) Chest pain Status: Acute Plan: May be due to pericardial effusion. Possible inflammatory response Problem Qualifiers (1) Chest pain: Qualified Code: R07.9 - Chest pain, unspecified type Maria T Diamond MD Dec 08, 2016 08:10
[2016-12-08] MEDS ORDERED: LIDOCAINE HCL 1% 20 ML VIAL ONE (08:17)
[2016-12-08] MEDS ORDERED: fentaNYL CITRATE 250 MCG/5 ML AMP ONE (08:23)
--- NOTE | 2016-12-08 09:29 | PD.RAD ---
Post CT Procedure Prog Note Pre Procedure Diagnosis: (1) Pericardial effusion with cardiac tamponade Post Procedure Diagnosis: (1) Pericardial effusion with cardiac tamponade Procedure Date: Dec 08, 2016 Supervising Radiologist: Roman Cordero Anesthesia: Local, Conscious Sedation Plan of Activity Patient to Unit: Critical Care Patient Condition: Fair See PACS Report for procedural detail/treatment Drainage Procedure Procedure 1 Imaging Guidance: CT Side: Left Procedure Type: Chest Tube Non-Tunneled Procedure: Placement Bulgarian: 7 Drainage: Suction Fluid Removal (CCs): 600 Fluid Description: Cloudy, Yellow, Green Findings: Large pericardial effusion Plan Accordion drainage for 24 hrs. Roman Cordero MD Dec 08, 2016 09:29
--- NOTE | 2016-12-08 10:19 | RADRPT ---
EXAM DATE/TIME: 12/08/2016 08:43 [facility] COMPARISON: No previous studies available for comparison. INDICATIONS : Pericardial fluid SEDATION TIME: 30 minutes MEDICATION(S): 1.) 1.5 mg midazolam (Versed) IV 2.) 75 mcg fentanyl (Sublimaze) IV DEVICE(S): 1.) 7fr skater FLUID: Total volume of 600 cc of clear, yellow fluid was removed. Fluid was sent for laboratory ordered studies. MEDICAL HISTORY : Chronic obstructive pulmonary disease. Hypertension. Diabetes mellitus type 1. A-fib SURGICAL HISTORY : a-fib ablation ENCOUNTER: Initial ACUITY: 1 day PAIN SCORE: 0/10 LOCATION: PROCEDURE: 1.) Conscious sedation with continuous EKG and oximetry monitoring. 2.) EKG and oximetry remained stable throughout the procedure. PROCEDURE : CT guided pericardial centesis The risks, benefits and alternatives to the procedure were explained and verbal and written consent w as obtained. Using automated exposure control and adjustment of the mA and/or kV according to patien t size, radiation dose was kept as low as reasonably achievable to obtain optimal diagnostic quality images. The site was prepped in sterile fashion. Full sterile technique was used, including cap, ma sk, sterile gloves and gown and a large sterile sheet. Hand hygiene and 2% chlorhexidine and/or beta dine/alcohol prep was utilized per protocol for cutaneous antisepsis. The skin and subcutaneous tiss ues were infiltrated with local anesthetic solution. DICOM format image data is available electronic ally for review and comparison. Under CT guidance a 7 Maltese all-purpose pigtail drainage catheter was inserted in the pericardial sp lior. 600 cc of cloudy yellow-green fluid was removed. Catheter was left in place and connected to an accordion drain. Patient tolerated procedure well. CONCLUSION: Uncomplicated CT-guided pericardial centesis as above. Roman Cordero MD on December 08, 2016 at 10:15 Board Certified Radiologist. This report was verified electronically.
--- NOTE | 2016-12-08 10:20 | HHI.PR ---
Subjective Remarks breathing easier after pericardiocentesis Objective Vitals no labored breathing heart reg; lung good air entry. occ wheeze abd s/nt ext no edema left chest pericardial drain noted. Vital Signs Date Time Temp Pulse Resp B/P Pulse Ox O2 Delivery O2 Flow Rate FiO2 12/08/16 09:52 71 12/08/16 09:45 71 20 111/67 97 12/08/16 09:35 97.5 75 16 106/70 91 12/08/16 04:28 97.0 80 22 139/66 92 12/08/16 04:24 91 Nasal Cannula 5.00 12/08/16 04:00 91 Nasal Cannula 5.00 12/08/16 01:00 Nasal Cannula 4.00 12/08/16 00:05 98.6 66 18 109/66 91 12/08/16 00:00 70 12/07/16 21:52 74 20 117/73 95 Nasal Cannula 3 12/07/16 19:31 75 20 123/74 96 Nasal Cannula 2 12/07/16 17:41 77 121/77 92 Nasal Cannula 3 12/07/16 15:20 73 16 132/90 93 Nasal Cannula 3 12/07/16 13:28 75 16 117/70 93 Nasal Cannula 3 12/07/16 12:15 104 16 110/56 93 Nasal Cannula 3 12/07/16 11:30 100 16 107/77 94 Nasal Cannula 3 12/07/16 11:22 93 Nasal Cannula 3.00 12/07/16 10:37 119 16 105/72 92 Room Air 3 12/07/16 12/07/16 12/08/16 14:59 22:59 06:59 Intake Total 0 ml Output Total 400 ml 1050 ml 700 ml Balance -400 ml -1050 ml -700 ml Intake Oral 0 ml Output Urine Total 400 ml 1050 ml 700 ml # Voids 3 # Bowel Movements 0 Result Diagram: 12/07/16 0815 12/08/16 0625 A/P Problem List: (1) Atrial fibrillation with RVR Status: Chronic Plan: Recurrent afib/rvr. s/p ablation x 1 lexiscan negative Pt noted to have a pericardial effusion on recent CT chest and this is most likely secondary to inflammation from the cardiac ablation. I repeated the echo...call by dr Arredondo and he says it is at least moderate size..currently no collapse of right atria/ventricle and no tamponade physiology so far spoke to Dr Diamond who cancelled the ablation....He ordered IR consult for pericardiocentesis...s/p 600cc yellow/cloudy fluid removed. colchicine started. still on cardizem gtt..will defer rate control meds to cardiology. eliquis on hold monitor drain output. (2) Hyponatremia Status: Acute Plan: probably related to dehydration/hypovolemia na corrected to 136 with ED fluid rx..I gave d5w overnight to lower the 24hr correction back to 10 points total. monitor. d/c ivf. (3) Pericardial effusion Status: Acute Plan: see above (4) Lung consolidation Status: Acute Plan: has been on levaquin but not clearly pna. (5) Hypertension Status: Chronic (6) COPD (chronic obstructive pulmonary disease) Status: Chronic Plan: nebs. Moises Mcdaniel MD Dec 08, 2016 10:19
--- NOTE | 2016-12-08 10:59 | MB ---
cc: STEPHANIE WILSON M.D. DATE OF CONSULTATION: 12/07/2016 REASON FOR CONSULTATION Atrial fibrillation with biventricular response. HISTORY OF PRESENT ILLNESS Mr. Carrasco is a 66-year-old gentleman, previous hospitalization due to atrial fibrillation, previous ablation, was discharged home and re-admitted on two subsequent occasions due to atrial fibrillation with biventricular response. He is on multiple medications. He is on amiodarone, he is on metoprolol, he is on Eliquis. I was consulted for evaluation and management. The chart was reviewed. The patient was evaluated. ALLERGIES MONOSODIUM GLUCONATE. SOCIAL HISTORY Negative for smoking and drinking. FAMILY HISTORY Noncontributory to his current medical condition. MEDICATIONS 1. Eliquis. 2. Lisinopril. 3. Amiodarone. 4. Levaquin. 5. Tylenol. REVIEW OF SYSTEMS Refers no chest pain, some palpitation, shortness of breath. No fever. PHYSICAL EXAMINATION GENERAL: Alert, fully oriented. VITAL SIGNS: His blood pressure on evaluation was 102/68, pulse 120, respiratory rate 18. LUNGS: Ventilated. CARDIOVASCULAR: S1, S2, tachycardic, irregular. ABDOMEN: Soft. No mass. No bruit. EXTREMITIES: No edema. ELECTROCARDIOGRAM Atrial fibrillation with biventricular response. LABORATORY DATA Hemoglobin 12, white blood cell 13.3, sodium 127, potassium 3.7, creatinine 0.02. INR 1.3. ASSESSMENT AND RECOMMENDATION Mr. Carrasco has atrial fibrillation. He had previous ablation. He is on and off in atrial fibrillation. He will need a redo procedure. The risks, the nature and the benefit of the procedure are clearly stated to him. The risks include pneumothorax, cardiac perforation, stroke and even . He understood and agreed to proceed. Procedure will be performed during hospitalization. Stephanie Wilson MD HS/TLL /7:01 PM /10:48 AM
[2016-12-08 11:11] LABS: PERICARDIAL HISTIOCYTES 1 %; PERICARDIAL LYMPHS 5 %; PERICARDIAL MONOS 2 %; PERICARDIAL POLYS(SEGS) 92 %; PERICARDIAL RBC 2475 /MM3 (0-0); PERICARDIAL WBC 638 /MM3 (0-10)
[2016-12-08] MEDS: BENZONATATE 100 MG CAP PO SCH ×2 (13:10→18:00)
[2016-12-08] MEDS: guaiFENesin SOLUTION 200 MG/10 ML CUP PO PRN ×2 (13:10→23:08)
[2016-12-08] MEDS: PANTOPRAZOLE SOD 40 MG DELAYED RELEASE TAB PO SCH (15:01)
[2016-12-08] MEDS: RESP: IPRATROPIUM 0.5 MG/2.5 ML NEB NEB SCH ×3 (16:29→21:56)
[2016-12-08] MEDS: ATORVASTATIN 40 MG TAB PO SCH (20:33)
[2016-12-08] MEDS: COLCHICINE 0.6 MG TAB PO SCH (20:33)
[2016-12-09] VITALS (28 sets, daily range): BP systolic 106–143; BP diastolic 53–88; PULSE 61–96; RESP 20; TEMP 97.5–97.9; O2SAT 88–97
[2016-12-09] MEDS: TEMAZEPAM 15 MG CAP PO PRN (00:48)
[2016-12-09] MEDS: RESP: IPRATROPIUM 0.5 MG/2.5 ML NEB NEB SCH ×6 (04:19→23:52)
[2016-12-09] MEDS: guaiFENesin SOLUTION 200 MG/10 ML CUP PO PRN (04:38)
[2016-12-09 06:08] LABS: BICARBONATE 25.5 MEQ/L (21.0-32.0); POTASSIUM 4.4 MEQ/L (3.5-5.1)
--- NOTE | 2016-12-09 08:09 | HHI.PR ---
Subjective Remarks still with cough/congestion Objective Vitals still sleepy heart irreg left ant chest drain..yellow fluid lung rhonci/wheeze eladio abd s/nt ext no edema Vital Signs Date Time Temp Pulse Resp B/P Pulse Ox O2 Delivery O2 Flow Rate FiO2 12/09/16 04:22 90 Nasal Cannula 4.00 12/09/16 00:00 97.7 78 20 106/53 90 12/09/16 00:00 97.5 75 20 114/67 92 12/08/16 20:00 98.0 71 20 119/76 91 12/08/16 18:06 76 12/08/16 17:55 72 12/08/16 16:12 71 12/08/16 15:09 71 12/08/16 15:09 90 Nasal Cannula 4.00 12/08/16 10:45 68 20 106/62 90 12/08/16 10:15 70 20 128/65 92 12/08/16 10:15 70 12/08/16 09:52 71 12/08/16 09:45 71 20 111/67 97 12/08/16 09:35 97.5 75 16 106/70 91 12/08/16 12/08/16 12/09/16 14:59 22:59 06:59 Intake Total 480 ml 240 ml Output Total 650 ml 450 ml 425 ml Balance -650 ml 30 ml -185 ml Intake Oral 480 ml 240 ml Output Urine Total 650 ml 450 ml 425 ml # Bowel Movements 1 0 Result Diagram: 12/07/16 0815 12/09/16 0515 A/P Problem List: (1) Atrial fibrillation with RVR Status: Chronic Plan: Recurrent afib/rvr. s/p ablation x 1 lexiscan negative Pt noted to have a pericardial effusion on recent CT chest and this is most likely secondary to inflammation from the cardiac ablation. I repeated the echo...call by dr Arredondo and he says it is at least moderate size..currently no collapse of right atria/ventricle and no tamponade physiology so far spoke to Dr Diamond who cancelled the ablation....He ordered IR consult for pericardiocentesis...s/p 600cc yellow/cloudy fluid removed. colchicine started. pericardial drain still in place and draining today.. still on cardizem gtt..will defer rate control meds to cardiology. eliquis on hold monitor drain output. (2) Hyponatremia Status: Acute Plan: probably related to dehydration/hypovolemia na corrected with IVF. monitor. (3) Pericardial effusion Status: Acute Plan: see above (4) Lung consolidation Status: Acute Plan: has been on levaquin but not clearly pna. (5) COPD (chronic obstructive pulmonary disease) Status: Acute Plan: pt having more wheezing and probably has some copd exacerbation. atrovent nebs. no albuterol due to tachy. budesonide. has refused some rx's. dose solumedrol. cxr. (6) Hypertension Status: Chronic Moises Mcdaniel MD Dec 09, 2016 08:09
[2016-12-09] MEDS ORDERED: RESP: BUDESONIDE 0.5 MG/2 ML NEB NEB ONE (08:15)
[2016-12-09] MEDS ORDERED: methylPREDNISolone SOD SUCC 125 MG/2 ML VIAL IV PUSH ONE (08:15)
[2016-12-09] MEDS: BENZONATATE 100 MG CAP PO SCH ×3 (09:22→17:32)
[2016-12-09] MEDS: COLCHICINE 0.6 MG TAB PO SCH ×2 (09:22→21:00)
[2016-12-09] MEDS: PANTOPRAZOLE SOD 40 MG DELAYED RELEASE TAB PO SCH (09:22)
--- NOTE | 2016-12-09 09:35 | RADRPT ---
EXAM DATE/TIME: 12/09/2016 08:30 [facility] COMPARISON: CHEST SINGLE AP, December 07, 2016, 8:16. CT GUIDED PERICARDIOCENTESIS, December 08, 2016, 8:43. CHEST SINGLE AP, December 02, 2016, 1:25. INDICATIONS : Shortness of breath. MEDICAL HISTORY : Chronic obstructive pulmonary disease. Hypertension Diabetes mellitus type II. Atrial fibrillatio n SURGICAL HISTORY : A-Fib Ablation. ENCOUNTER: Subsequent ACUITY: 3 days PAIN SCORE: 3/10 LOCATION: chest FINDINGS: A pigtail drain is present, presumably in the pericardium. Cardiac silhouette is decreased in size re lative to prior exam. There is consolidative change at the left base obscured left diaphragm. Hazy pa renchymal opacity right base is grossly stable. CONCLUSION: Interval improvement in cardiac silhouette with pericardial drain in place. Worsening left base aerat ion Davey Butler MD on December 09, 2016 at 9:32 Board Certified Radiologist. This report was verified electronically.
[2016-12-09] MEDS: RESP: BUDESONIDE 0.5 MG/2 ML NEB NEB SCH (19:37)
[2016-12-09] MEDS: ATORVASTATIN 40 MG TAB PO SCH (21:07)
[2016-12-10] VITALS (30 sets, daily range): BP systolic 109–155; BP diastolic 65–87; PULSE 63–109; RESP 20; TEMP 97.3–98.8; O2SAT 92–97
[2016-12-10] MEDS: TEMAZEPAM 15 MG CAP PO PRN (00:47)
[2016-12-10] MEDS: RESP: IPRATROPIUM 0.5 MG/2.5 ML NEB NEB SCH ×6 (04:00→23:11)
[2016-12-10] MEDS: PANTOPRAZOLE SOD 40 MG DELAYED RELEASE TAB PO SCH (08:32)
[2016-12-10] MEDS: BENZONATATE 100 MG CAP PO SCH ×3 (08:32→18:16)
[2016-12-10] MEDS: COLCHICINE 0.6 MG TAB PO SCH ×2 (08:32→21:00)
[2016-12-10] MEDS: AMIODARONE 200 MG TAB PO SCH (08:34)
[2016-12-10] MEDS: methylPREDNISolone SOD SUCC 125 MG/2 ML VIAL IV PUSH SCH (08:35)
[2016-12-10] MEDS: RESP: BUDESONIDE 0.5 MG/2 ML NEB NEB SCH ×2 (08:55→20:10)
--- NOTE | 2016-12-10 09:54 | HHI.PR ---
Subjective Remarks Pt doing ok. still with cough/congestion. Objective Vitals heart reg lung improved. less rhonci/wheeze abd s/nt ext no edema left chest pericardial drain. Vital Signs Date Time Temp Pulse Resp B/P Pulse Ox O2 Delivery O2 Flow Rate FiO2 12/10/16 09:01 94 Nasal Cannula 3.00 12/10/16 07:01 63 12/10/16 06:00 66 12/10/16 05:00 93 Nasal Cannula 4.00 12/10/16 05:00 98.8 67 20 110/73 93 12/10/16 04:00 66 12/10/16 03:00 64 12/10/16 02:00 64 12/10/16 01:00 68 12/10/16 00:00 76 12/09/16 23:52 97 Nasal Cannula 4.00 12/09/16 23:00 74 12/09/16 22:00 72 12/09/16 21:00 72 12/09/16 20:00 75 12/09/16 20:00 95 Nasal Cannula 4.00 12/09/16 20:00 97.9 76 20 143/77 95 12/09/16 19:37 92 Nasal Cannula 4.00 12/09/16 19:00 72 12/09/16 18:13 89 12/09/16 17:37 77 12/09/16 16:39 76 12/09/16 15:45 73 12/09/16 15:45 90 Nasal Cannula 4.00 12/09/16 15:45 97.5 78 20 142/88 90 12/09/16 14:15 61 12/09/16 13:18 70 12/09/16 12:10 65 12/09/16 11:41 71 12/09/16 11:41 92 Nasal Cannula 4.00 12/09/16 11:41 97.6 74 20 117/74 92 12/09/16 10:34 96 12/09/16 12/09/16 12/10/16 14:59 22:59 06:59 Intake Total 720 ml 769 ml Output Total 795 ml 350 ml Balance -75 ml 419 ml Intake Oral 720 ml 480 ml IV Total 289 ml Output Urine Total 750 ml 350 ml Drainage Total 45 ml 0 ml # Bowel Movements 1 Result Diagram: 12/07/1615 12/09/1615 A/P Problem List: (1) Atrial fibrillation with RVR Status: Chronic Plan: Recurrent afib/rvr. s/p ablation x 1 lexiscan negative Pt noted to have a pericardial effusion on recent CT chest and this is most likely secondary to inflammation from the cardiac ablation. I repeated the echo...call by dr Arredondo and he says it is at least moderate size..currently no collapse of right atria/ventricle and no tamponade physiology so far spoke to Dr Diamond who cancelled the ablation....He ordered IR consult for pericardiocentesis...s/p 600cc yellow/cloudy fluid removed initially. colchicine started. pericardial drain still in place..nursing tells me there was no drainage overnight. still on cardizem gtt..checked with dr Diamond who is ok with resuming amiodarone and stopping cardizem gtt. eliquis on hold check with IR/cardiology about drain removal. (2) Hyponatremia Status: Acute Plan: probably related to dehydration/hypovolemia na corrected with IVF. monitor. (3) Pericardial effusion Status: Acute Plan: see above (4) Lung consolidation Status: Acute Plan: has been on levaquin but not clearly pna. (5) COPD (chronic obstructive pulmonary disease) Status: Acute Plan: pt having more wheezing and probably has some copd exacerbation. atrovent nebs. no albuterol due to tachy. budesonide. has refused some rx's. dose solumedrol. If unable to get off oxygen might repeat the ct (6) Hypertension Status: Chronic Moises Mcdaniel MD Dec 10, 2016 09:54
[2016-12-10 15:44] LABS: ANION GAP 10 MEQ/L (5-15); BICARBONATE 22.6 MEQ/L (21.0-32.0); BLOOD UREA NITROGEN 21 MG/DL (7-18); CHLORIDE 103 MEQ/L (98-107); GLOMERULAR FILTRATION RATE 106 ML/MIN (>89); POTASSIUM 4.5 MEQ/L (3.5-5.1); SODIUM (NA) 136 MEQ/L (136-145)
[2016-12-10 16:19] LABS: HEMOGLOBIN A1a 0.9 %; HEMOGLOBIN A1b 0.9 %; HEMOGLOBIN Ao 85.5 %; HEMOGLOBIN F 0.8 %; HEMOGLOBIN LA1C 2.3 %
--- NOTE | 2016-12-10 17:30 | HHI.PR ---
Subjective Remarks Feeling better Objective Vital Signs Date Time Temp Pulse Resp B/P Pulse Ox O2 Delivery O2 Flow Rate FiO2 12/10/16 17:22 94 21 12/10/16 17:01 76 12/10/16 16:00 70 12/10/16 15:30 97.8 75 20 124/87 94 12/10/16 15:30 94 Nasal Cannula 1.00 12/10/16 15:07 94 Nasal Cannula 1.00 12/10/16 15:00 74 12/10/16 14:01 76 12/10/16 13:00 74 12/10/16 12:00 74 12/10/16 11:30 97.3 73 20 132/78 97 12/10/16 11:30 97 Nasal Cannula 2.00 12/10/16 11:00 73 12/10/16 10:00 72 12/10/16 09:01 94 Nasal Cannula 3.00 12/10/16 09:00 72 12/10/16 08:15 97.8 77 20 115/78 94 12/10/16 08:15 94 Nasal Cannula 3.00 12/10/16 08:00 78 12/10/16 07:01 63 12/10/16 06:00 66 12/10/16 05:00 93 Nasal Cannula 4.00 12/10/16 05:00 98.8 67 20 110/73 93 12/10/16 04:00 66 12/10/16 03:00 64 12/10/16 02:00 64 12/10/16 01:00 68 12/10/16 00:00 76 12/09/16 23:52 97 Nasal Cannula 4.00 12/09/16 23:00 74 12/09/16 22:00 72 12/09/16 21:00 72 12/09/16 20:00 75 12/09/16 20:00 95 Nasal Cannula 4.00 12/09/16 20:00 97.9 76 20 143/77 95 12/09/16 19:37 92 Nasal Cannula 4.00 12/09/16 19:00 72 12/09/16 18:13 89 12/09/16 17:37 77 I/O 12/09/16 12/09/16 12/09/16 12/10/16 12/10/16 12/10/16 06:59 14:59 22:59 06:59 14:59 22:59 Intake Total 240 ml 720 ml 769 ml Output Total 425 ml 795 ml 350 ml Balance -185 ml -75 ml 419 ml Intake Oral 240 ml 720 ml 480 ml IV Total 289 ml Output Urine Total 425 ml 750 ml 350 ml Drainage Total 45 ml 0 ml # Bowel Movements 1 Result Diagram: 12/07/1681412/10/16 1500 Imaging Alert, fully oriented Lungs: ventilated Heart: S1, S2 regular Abdomen: soft, no mass Ext: no edema Last Impressions Chest X-Ray 12/09/16 0000 Signed Impressions: Service Date/Time: Friday, December 09, 2016 08:30 - CONCLUSION: Interval improvement in cardiac silhouette with pericardial drain in place. Worsening left base aeration Davey Butler MD Pericardiocentesis 12/08/16814 Signed Impressions: Service Date/Time: Thursday, December 08, 2016 08:43 - CONCLUSION: Uncomplicated CT-guided pericardial centesis as above. Roman Cordero MD Current Medications Medications (Trade) Dose Ordered Sig/Michelle Route Start Time Stop Time Status Last Admin (Lipitor) 40 mg HS PO 12/07/16 21:00 12/09/16 21:07 (Protonix) 40 mg DAILY PO 12/08/16 09:00 12/10/16 08:32 (Colchicine) 0.6 mg BID PO 12/08/16 09:00 12/10/16 08:32 (Tessalon) 200 mg TID PO 12/08/16 13:00 12/10/16 13:49 (Robitussin Liq) 200 mg Q4H PRN PO 12/08/16 12:15 12/09/16 04:38 (Restoril) 15 mg HS PRN PO 12/08/16 18:30 12/10/16 00:47 (SoluMEDROL INJ) 60 mg DAILY IV PUSH 12/10/16 09:00 12/10/16 08:35 (Cordarone) 200 mg DAILY PO 12/10/16 09:00 12/10/16 08:34 Assessment and Plan Problem List: (1) Atrial fibrillation with RVR Status: Chronic Plan: In sinus rhythm Doing better Minimal drainage from the mediastinal tube on colchicine for the next 5 days Continue with current management I will be available on a PRN basis (2) Chest pain Status: Acute Plan: Doing better Problem Qualifiers (1) Chest pain: Qualified Code: R07.9 - Chest pain, unspecified type Maria T Diamond MD Dec 10, 2016 17:30
[2016-12-10] MEDS: ATORVASTATIN 40 MG TAB PO SCH (21:45)
[2016-12-10] MEDS: LOPERAMIDE HCL 2 MG CAP PO PRN (22:28)
[2016-12-11] VITALS (30 sets, daily range): BP systolic 111–142; BP diastolic 72–90; PULSE 64–84; RESP 20; TEMP 97.8–98.4; O2SAT 90–95
[2016-12-11] MEDS: TEMAZEPAM 15 MG CAP PO PRN (00:45)
[2016-12-11] MEDS: RESP: IPRATROPIUM 0.5 MG/2.5 ML NEB NEB SCH ×5 (03:04→20:58)
[2016-12-11] MEDS: LOPERAMIDE HCL 2 MG CAP PO PRN (08:42)
[2016-12-11] MEDS: BENZONATATE 100 MG CAP PO SCH ×3 (08:42→18:18)
[2016-12-11] MEDS: AMIODARONE 200 MG TAB PO SCH (08:42)
[2016-12-11] MEDS: COLCHICINE 0.6 MG TAB PO SCH (08:42)
[2016-12-11] MEDS: PANTOPRAZOLE SOD 40 MG DELAYED RELEASE TAB PO SCH (08:42)
[2016-12-11] MEDS: methylPREDNISolone SOD SUCC 125 MG/2 ML VIAL IV PUSH SCH (08:43)
[2016-12-11] MEDS: RESP: BUDESONIDE 0.5 MG/2 ML NEB NEB SCH ×2 (08:54→20:58)
[2016-12-11] MEDS ORDERED: guaiFENesin E.R. 600 MG TAB PO ONE (09:15)
--- NOTE | 2016-12-11 09:16 | HHI.PR ---
Subjective Remarks still with cough. Objective Vitals pericardial drain heart reg luing improved air entry abd s/nt ext no edema Vital Signs Date Time Temp Pulse Resp B/P Pulse Ox O2 Delivery O2 Flow Rate FiO2 12/11/16 09:03 94 12/11/16 07:01 68 12/11/16 06:06 67 12/11/16 05:00 68 12/11/16 04:00 66 12/11/16 03:50 97.9 70 117/72 90 12/11/16 03:08 Room Air 12/11/16 03:00 67 12/11/16 02:00 68 12/11/16 01:00 68 12/11/16 00:00 68 12/10/16 23:00 Room Air 21 12/10/16 23:00 98.2 109 109/65 92 12/10/16 23:00 67 12/10/16 22:00 74 12/10/16 21:00 70 12/10/16 20:00 74 12/10/16 20:00 Room Air 12/10/16 20:00 97.7 74 155/84 96 12/10/16 19:00 73 12/10/16 18:01 80 12/10/16 17:22 94 21 12/10/16 17:01 76 12/10/16 16:00 70 12/10/16 15:30 97.8 75 20 124/87 94 12/10/16 15:30 94 Nasal Cannula 1.00 12/10/16 15:07 94 Nasal Cannula 1.00 12/10/16 15:00 74 12/10/16 14:01 76 12/10/16 13:00 74 12/10/16 12:00 74 12/10/16 11:30 97.3 73 20 132/78 97 12/10/16 11:30 97 Nasal Cannula 2.00 12/10/16 11:00 73 12/10/16 10:00 72 12/10/16 12/10/16 12/11/16 14:59 22:59 06:59 Intake Total 968 ml 480 ml Output Total 640 ml 20 ml Balance 328 ml 460 ml Intake Oral 940 ml 480 ml IV Total 28 ml Output Urine Total 600 ml Chest Tube Drainage Total 40 ml Drainage Total 20 ml # Voids 5 3 # Bowel Movements 3 3 Result Diagram: 12/07/16 0815 12/10/16 1500 A/P Problem List: (1) Atrial fibrillation with RVR Status: Chronic Plan: Recurrent afib/rvr. s/p ablation x 1 lexiscan negative Pt noted to have a pericardial effusion on recent CT chest and this is most likely secondary to inflammation from the cardiac ablation. I repeated the echo...call by dr Arredondo and he says it is at least moderate size..currently no collapse of right atria/ventricle and no tamponade physiology so far spoke to Dr Diamond who cancelled the ablation....He ordered IR consult for pericardiocentesis...s/p 600cc yellow/cloudy fluid removed initially. colchicine started. lowered due to diarrhea. pericardial drain still in place..nursing tells me there was no drainage overnight. cardizem gtt stopped 12/10...resumed amiodarone. eliquis on hold...will resume once drain removed. check with IR/cardiology about drain removal. (2) Hyponatremia Status: Acute Plan: probably related to dehydration/hypovolemia na corrected with IVF. monitor. (3) Pericardial effusion Status: Acute Plan: see above (4) Lung consolidation Status: Acute Plan: has been on levaquin but not clearly pna. (5) COPD (chronic obstructive pulmonary disease) Status: Acute Plan: pt having more wheezing and probably has some copd exacerbation. atrovent nebs. no albuterol due to tachy. budesonide. has refused some rx's. dose solumedrol. mucinex IS currently weaned off o2 If persistent congestion consider reimaging chest. (6) Hypertension Status: Chronic Moises Mcdaniel MD Dec 11, 2016 09:16
[2016-12-11] MEDS: ATORVASTATIN 40 MG TAB PO SCH (20:53)
[2016-12-11] MEDS: guaiFENesin E.R. 600 MG TAB PO SCH (20:53)
[2016-12-12] VITALS (25 sets, daily range): BP systolic 122–160; BP diastolic 75–90; PULSE 62–82; RESP 20–22; TEMP 97.6–98.5; O2SAT 91–96
[2016-12-12] MEDS: RESP: IPRATROPIUM 0.5 MG/2.5 ML NEB NEB SCH ×7 (01:58→23:48)
[2016-12-12] MEDS: RESP: BUDESONIDE 0.5 MG/2 ML NEB NEB SCH ×2 (08:29→19:54)
--- NOTE | 2016-12-12 08:52 | HHI.PR ---
Subjective Remarks still with some pulmonary congestion. Objective Vitals heart reg lung good air entry abd s/nt ext no edema Vital Signs Date Time Temp Pulse Resp B/P Pulse Ox O2 Delivery O2 Flow Rate FiO2 12/12/16 08:30 96 12/12/16 06:00 64 12/12/16 05:00 62 12/12/16 04:00 92 Room Air Nasal Cannula 12/12/16 04:00 98.5 64 20 141/90 92 12/12/16 04:00 62 12/12/16 03:00 62 12/12/16 02:00 64 12/12/16 01:00 62 12/12/16 00:00 63 12/12/16 00:00 98.2 66 20 122/80 92 12/12/16 00:00 92 Room Air Nasal Cannula 12/11/16 23:00 68 12/11/16 22:00 66 12/11/16 21:00 68 12/11/16 20:58 94 21 12/11/16 20:00 72 12/11/16 20:00 94 Room Air 12/11/16 20:00 98.4 69 20 142/90 94 12/11/16 19:00 64 12/11/16 18:01 74 12/11/16 17:01 84 12/11/16 16:00 66 12/11/16 15:30 92 Room Air 12/11/16 15:30 97.8 78 20 127/77 95 12/11/16 15:00 81 12/11/16 14:00 72 12/11/16 13:00 70 12/11/16 12:01 78 12/11/16 11:01 98.2 75 20 111/77 92 12/11/16 11:01 92 Room Air 12/11/16 11:00 75 12/11/16 10:00 66 12/11/16 09:03 94 12/11/16 09:00 66 12/11/16 12/11/16 12/12/16 15:00 23:00 07:00 Intake Total 720 ml 240 ml Output Total 750 ml Balance -30 ml 240 ml Intake Oral 720 ml 240 ml Output Urine Total 750 ml # Voids 5 3 # Bowel Movements 0 Result Diagram: 12/10/16 1500 A/P Problem List: (1) Atrial fibrillation with RVR Status: Chronic Plan: Recurrent afib/rvr. s/p ablation x 1 lexiscan negative Pt noted to have a pericardial effusion on recent CT chest and this is most likely secondary to inflammation from the cardiac ablation. I repeated the echo...call by dr Arredondo and he says it is at least moderate size..currently no collapse of right atria/ventricle and no tamponade physiology so far spoke to Dr Diamond who cancelled the ablation....He ordered IR consult for pericardiocentesis...s/p 600cc yellow/cloudy fluid removed initially. colchicine started. lowered due to diarrhea. pericardial drain removed 12/11 cardizem gtt stopped 12/10...resumed amiodarone. eliquis on hold...will resume reimage lungs. plan for d/c Wednesday. (2) Hyponatremia Status: Acute Plan: probably related to dehydration/hypovolemia na corrected with IVF. monitor. (3) Pericardial effusion Status: Acute Plan: see above (4) Lung consolidation Status: Acute Plan: has been on levaquin but not clearly pna. (5) COPD (chronic obstructive pulmonary disease) Status: Acute Plan: pt having more wheezing and probably has some copd exacerbation. atrovent nebs. no albuterol due to tachy. budesonide. has refused some rx's. dose solumedrol. mucinex IS currently weaned off o2 If persistent congestion consider reimaging chest. (6) Hypertension Status: Chronic Moises Mcdaniel MD Dec 12, 2016 08:52
[2016-12-12] MEDS: methylPREDNISolone SOD SUCC 125 MG/2 ML VIAL IV PUSH SCH (08:55)
[2016-12-12] MEDS: PANTOPRAZOLE SOD 40 MG DELAYED RELEASE TAB PO SCH (08:55)
[2016-12-12] MEDS: AMIODARONE 200 MG TAB PO SCH (08:55)
[2016-12-12] MEDS: BENZONATATE 100 MG CAP PO SCH ×3 (08:55→18:23)
[2016-12-12] MEDS: COLCHICINE 0.6 MG TAB PO SCH (08:55)
[2016-12-12] MEDS: guaiFENesin E.R. 600 MG TAB PO SCH ×2 (08:56→21:00)
[2016-12-12] MEDS: LISINOPRIL 10 MG TAB PO SCH (09:00)
[2016-12-12] MEDS ORDERED: SIMETHICONE 125 MG CHEWABLE TAB PO SCH (09:00)
[2016-12-12] MEDS: LOPERAMIDE HCL 2 MG CAP PO PRN (10:56)
[2016-12-12] MEDS: SIMETHICONE 125 MG CHEWABLE TAB PO SCH ×3 (10:56→21:09)
--- NOTE | 2016-12-12 12:36 | RADRPT ---
EXAM DATE/TIME: 12/12/2016 12:13 [facility] COMPARISON: CT GUIDED PERICARDIOCENTESIS, December 08, 2016, 8:43. INDICATIONS : Shortness of breath. RADIATION DOSE: 9.51 CTDIvol (mGy) MEDICAL HISTORY : Cardiovascular disease. Hypertension. Carcinoma, prostate. SURGICAL HISTORY : Cardiac ablation. ENCOUNTER: Initial ACUITY: 1 day PAIN SCALE: 0/10 LOCATION: chest TECHNIQUE: Volumetric scanning of the chest was performed. Using automated exposure control and adjustment of t he mA and/or kV according to patient size, radiation dose was kept as low as reasonably achievable to obtain optimal diagnostic quality images. DICOM format image data is available electronically for r eview and comparison. Follow-up recommendations for detected pulmonary nodules are based at a minimum on nodule size and pa tient risk factors according to Fleischner Society Guidelines. FINDINGS: LUNGS: Mild subsegmental consolidating airspace disease is seen posteriorly in both lower lobes. Lungs are o therwise clear without significant congestion. PLEURAE: Small bilateral pleural effusions are present. MEDIASTINUM: Small pericardial effusion remains evident however it significantly smaller when compared to prior st udy. The heart is normal in size. AXILLAE: Within normal limits. No lymphadenopathy. MUSCULOSKELETAL: Within normal limits for patient age. MISCELLANEOUS: The visualized upper abdominal organs demonstrate no acute abnormality. CONCLUSION: 1. Small bilateral pleural effusions and subsegmental consolidating airspace disease in the bases. 2. Persistent small pericardial effusion. 3. No other significant abnormality. Roman Cordero MD on December 12, 2016 at 12:30 Board Certified Radiologist. This report was verified electronically.
[2016-12-12] MEDS: ATORVASTATIN 40 MG TAB PO SCH (21:09)
[2016-12-12] MEDS ORDERED: NITROGLYCERIN 0.4 MG SL 25 TABS/BTL SL ONE (22:45)
[2016-12-12] MEDS: ACETAMINOPHEN 325 MG TAB PO PRN (23:13)
[2016-12-12 23:48] LABS: CREATINE KINASE 49 U/L (39-308)
[2016-12-13] VITALS (30 sets, daily range): BP systolic 114–163; BP diastolic 77–100; PULSE 68–141; RESP 18–22; TEMP 97.4–99.1; O2SAT 90–97
[2016-12-13] MEDS: TEMAZEPAM 15 MG CAP PO PRN (00:31)
[2016-12-13] MEDS: MORPHINE SULFATE 4 MG/ML INJ IV PUSH PRN ×2 (01:22→15:33)
[2016-12-13] MEDS: RESP: IPRATROPIUM 0.5 MG/2.5 ML NEB NEB SCH ×5 (04:02→21:52)
[2016-12-13 04:18] LABS: BLOOD GAS BASE EXCESS -1.2 mmol/L (-2-2); BLOOD GAS CARBOXYHEMOGLOBIN 1.6 % (0-4); BLOOD GAS HCO3 22 mmol/L (22-26); BLOOD GAS METHEMOGLOBIN 0.9 % (0-2); BLOOD GAS O2 HGB SATURATION 92 % (90-100); BLOOD GAS OXYGEN CONTENT 18.1 Vol % (12.0-20.0); BLOOD GAS PCO2 30 mmHg (38-42); BLOOD GAS PO2 70 mmHg (61-120); BLOOD GAS TOTAL HGB 14.1 G/DL (12.0-16.0); CRITICAL VALUE NO; DRAW SITE RT RADIAL; LITER FLOW 3.5 L/M; NUMBER OF ARTERIAL PUNCTURES 1; OXYGEN DEVICE NASAL CANNULA; STAT YES; TEMP CORR TO 98.6; ULNAR PULSE PRESENT
[2016-12-13] MEDS ORDERED: LORazepam 2 MG/ML VIAL ONE (04:27)
[2016-12-13] MEDS ORDERED: FUROSEMIDE 40 MG/4 ML VIAL ONE (04:47)
[2016-12-13] MEDS: PANTOPRAZOLE SOD 40 MG DELAYED RELEASE TAB PO SCH ×2 (04:52→08:26)
[2016-12-13 05:43] LABS: AUTOMATED NEUTROPHIL # 12.4 TH/MM3 (1.8-7.7); BASOPHIL % 0.2 % (0.0-2.0); HEMATOCRIT 38.5 % (39.0-51.0); HEMO FLAGS DIFF FINAL; LYMPH % 1.3 % (9.0-44.0); LYMPHOCYTE # 0.2 TH/MM3 (1.0-4.8); MEAN CELL VOLUME 91.4 FL (80.0-100.0); MEAN CORPUSCULAR HEMOGLOBIN 32.5 PG (27.0-34.0); MEAN CORPUSCULAR HGB CONC 35.5 % (32.0-36.0); MONO % 0.4 % (0.0-8.0); NEUT % 98.1 % (16.0-70.0); PLATELET COUNT 295 TH/MM3 (150-450); RED BLOOD COUNT 4.22 MIL/MM3 (4.50-5.90); RED CELL DISTRIBUTION WIDTH 12.2 % (11.6-17.2); WHITE BLOOD COUNT 12.6 TH/MM3 (4.0-11.0)
--- NOTE | 2016-12-13 05:45 | RADRPT ---
EXAM DATE/TIME: 12/13/2016 03:53 [facility] COMPARISON: CHEST SINGLE AP, December 09, 2016, 8:30. INDICATIONS : Severe shortness of breath with uncontrollable shaking. MEDICAL HISTORY : Cardiovascular disease. Hypertension Carcinoma, prostatic. SURGICAL HISTORY : Cardiac ablation Pericardiocentesis ENCOUNTER: Subsequent ACUITY: 1 week PAIN SCORE: 0/10 LOCATION: Bilateral chest FINDINGS: A single view of the chest demonstrates minimal bibasilar densities. Heart normal in size.. The card iomediastinal contours are unremarkable. Osseous structures are intact. CONCLUSION: Minimal bibasilar densities. Ananth Mejias MD on December 13, 2016 at 5:41 Board Certified Radiologist. This report was verified electronically.
[2016-12-13] MEDS: SIMETHICONE 125 MG CHEWABLE TAB PO SCH ×3 (06:22→21:16)
[2016-12-13 06:26] LABS: ALT (GPT) 75 U/L (12-78); ANION GAP 11 MEQ/L (5-15); AST (GOT) 22 U/L (15-37); BICARBONATE 24.6 MEQ/L (21.0-32.0); BLOOD UREA NITROGEN 20 MG/DL (7-18); CHLORIDE 99 MEQ/L (98-107); GLOMERULAR FILTRATION RATE 86 ML/MIN (>89); POTASSIUM 3.9 MEQ/L (3.5-5.1); SODIUM (NA) 135 MEQ/L (136-145)
[2016-12-13 06:28] LABS: ALKALINE PHOSPHATASE 134 U/L (45-117); TOTAL BILIRUBIN ADULT 1.2 MG/DL (0.2-1.0)
[2016-12-13] MEDS ORDERED: LORazepam 2 MG TAB PO PRN (06:30)
[2016-12-13] MEDS ORDERED: LORazepam 2 MG/ML VIAL IV PUSH PRN ×4 (06:30)
[2016-12-13] MEDS ORDERED: FLUMAZENIL 0.5 MG/5 ML VIAL IV PUSH PRN (06:30)
[2016-12-13] MEDS ORDERED: LORazepam 1 MG TAB PO PRN (06:30)
[2016-12-13 07:36] LABS: LACTIC ACID GHOST NOT REPORTABLE
[2016-12-13] MEDS: RESP: BUDESONIDE 0.5 MG/2 ML NEB NEB SCH ×2 (08:00→21:52)
[2016-12-13] MEDS: LISINOPRIL 10 MG TAB PO SCH (08:26)
[2016-12-13] MEDS: AMIODARONE 200 MG TAB PO SCH (08:26)
[2016-12-13] MEDS: BENZONATATE 100 MG CAP PO SCH (08:27)
[2016-12-13] MEDS: COLCHICINE 0.6 MG TAB PO SCH (08:27)
[2016-12-13] MEDS: methylPREDNISolone SOD SUCC 125 MG/2 ML VIAL IV PUSH SCH (08:27)
[2016-12-13] MEDS: guaiFENesin E.R. 600 MG TAB PO SCH ×2 (08:27→21:00)
--- NOTE | 2016-12-13 08:46 | HHI.PR ---
Subjective Remarks discussed with RN. pt awoke in middle night and had severe cp. he had cxr/ekg/abg/cxr/labs. seemed confused and given ativan x 2 then morphine x 2. no focal neuro weakness. No h/a until given ntg. has been in sinus rhythm. currently sleepy from the medications but is currently cooperative and denies any cp or h/a. He is oriented at moment. Objective Vitals sleepy but arousable and follows commands cn 2-12 grossly intact moves all 4 ext and no weakness heart reg lung good air entry b abd s/nt ext no edema scd's Vital Signs Date Time Temp Pulse Resp B/P Pulse Ox O2 Delivery O2 Flow Rate FiO2 12/13/16 07:55 94 Nasal Cannula 3.00 12/13/16 07:55 97.4 90 22 119/82 94 12/13/16 07:55 90 12/13/16 06:00 86 12/13/16 05:00 88 12/13/16 04:00 84 12/13/16 03:00 68 12/13/16 03:00 97.8 82 22 163/100 93 12/13/16 03:00 93 Nasal Cannula 2.00 12/13/16 02:00 68 12/13/16 01:30 20 12/13/16 01:00 74 12/13/16 00:14 20 12/13/16 00:00 74 12/12/16 23:11 20 12/12/16 23:00 97 Nasal Cannula 2.00 12/12/16 23:00 97.9 80 22 160/90 91 12/12/16 23:00 74 12/12/16 22:00 82 12/12/16 21:00 68 12/12/16 20:00 66 12/12/16 19:56 93 21 12/12/16 19:00 70 12/12/16 19:00 97.9 66 20 133/76 94 12/12/16 19:00 94 Room Air 12/12/16 18:25 66 12/12/16 17:13 65 12/12/16 16:58 69 12/12/16 15:26 98.3 66 20 130/76 92 12/12/16 15:26 66 12/12/16 15:26 92 Room Air Nasal Cannula 12/12/16 13:13 74 12/12/16 12:59 74 12/12/16 11:06 98.4 66 20 134/77 93 12/12/16 11:06 66 12/12/16 11:06 93 Room Air Nasal Cannula 12/12/16 10:02 62 12/12/16 09:48 65 12/12/16 12/12/16 12/13/16 15:00 23:00 07:00 Intake Total 1120 ml 720 ml Output Total 325 ml Balance 1120 ml 395 ml Intake Oral 1120 ml 720 ml Output Urine Total 325 ml # Voids 6 5 # Bowel Movements 2 Result Diagram: 12/13/1652712/13/16527 A/P Problem List: (1) Atrial fibrillation with RVR Status: Chronic Plan: Recurrent afib/rvr. has been in sinus rhythm s/p ablation x 1 lexiscan negative Pt noted to have a pericardial effusion on recent CT chest and this is most likely secondary to inflammation from the cardiac ablation. I repeated the echo...call by dr Arredondo and he says it is at least moderate size..currently no collapse of right atria/ventricle and no tamponade physiology so far spoke to Dr Diamond who cancelled the ablation....He ordered IR consult for pericardiocentesis...s/p 600cc yellow/cloudy fluid removed initially. colchicine started. lowered due to diarrhea. pericardial drain removed 12/11 cardizem gtt stopped 12/10...resumed amiodarone. scd's. low dose lovenox. plan to resume eliquis eliquis on hold due to cardiac procedure Repeat CT chest 12/12 shows small pleural/pericardial effusions and consolidations Pt became acutely confused with cp this morning Discussed with RN. Pt was ambulatory all yesterday and eager for d/c...will observe him today. pericardial fluid path pending (2) Hyponatremia Status: Acute Plan: probably related to dehydration/hypovolemia na corrected with IVF. monitor. (3) Pericardial effusion Status: Acute Plan: see above (4) Lung consolidation Status: Acute Plan: has been on levaquin but not clearly pna. (5) COPD (chronic obstructive pulmonary disease) Status: Acute Plan: ---pt having more wheezing and probably has some copd exacerbation. ..atrovent nebs. no albuterol due to tachy. ..budesonide. ..solumedrol to pred. taper. ..mucinex ..IS ..currently weaned off o2 (6) Hypertension Status: Chronic Moises Mcdaniel MD Dec 13, 2016 08:46
[2016-12-13] MEDS: ENOXAPARIN SODIUM 40 MG/0.4 ML SYRINGE SQ SCH (09:49)
[2016-12-13] MEDS ORDERED: DILTIAZEM INJ 125 MG in SODIUM CHLORIDE 0.9% INJ 100 ML IV SCH (16:00)
[2016-12-13] MEDS: ACETAMINOPHEN 325 MG TAB PO PRN (21:16)
[2016-12-13] MEDS: predniSONE 20 MG TAB PO SCH (21:17)
[2016-12-13] MEDS: ATORVASTATIN 40 MG TAB PO SCH (21:19)
[2016-12-13 23:54] LABS: BLOOD, URINE NEG (NEG); GLUCOSE,URINE NEG (NEG); KETONE, URINE NEG (NEG); MUCUS URINE FEW /lpf (OCC); NITRITE,URINE NEG (NEG); PH, URINE 6.5 (5.0-8.5); URINE COLOR YELLOW (YELLW/STRAW)
[2016-12-13 23:56] LABS: COMMENT (UR) CULT NOT INDICATED; CULTURE IF INDICATED CULT NOT INDICATED
[2016-12-14] VITALS (18 sets, daily range): BP systolic 97–131; BP diastolic 61–97; PULSE 81–137; RESP 20–29; TEMP 97.6–99.8; O2SAT 92–100
[2016-12-14] MEDS: LORazepam 1 MG TAB PO PRN (02:45)
[2016-12-14] MEDS: RESP: IPRATROPIUM 0.5 MG/2.5 ML NEB NEB SCH ×6 (02:46→20:00)
--- NOTE | 2016-12-14 03:50 | HHI.PR ---
Addendum to Inpatient Note Additional Information Subjective: Residents paged to assess 66 yo M with history of A fib w/ RVR with acute neurologic change. Nurses state that 20 minutes prior he was at baseline but now he is having difficulty raising his L arm. Denied chest pain and SOB Objective: Vitals: HR 135, BP 120/63, O2 95% on 3 L (baseline), Temp 99.1 Gen: awake and alert gentleman laying in bed in NAD CV: irregularly irregular, no murmur appreciated Resp: CTAB, good air movement with no wheezes or crackles Neuro: Confusion noted, slightly worse than baseline per staff radiologist. Oriented to person and place but not time. Confusion on following commands. Repetition intact. 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 2/5 muscle strength on raising L arm and biceps contraction. Normal strength in BLE. No facial droop appreciated, symmetric smile and eyebrow raise Assessment and Plan 66 yo M with Afib w/ RVR who was assessed for acute neurologic changes Physical exam findings concerning for acute stroke CT head w/o contrast ordered Stroke alert - neurology consulted Troponin, CBC, BMP ordered Did not feel it appropriate to transfer from [facility] at this time Thomas Gregorio MD R1 Dec 14, 2016 03:50
[2016-12-14 04:02] LABS: I-STAT POTASSIUM 4.6 MMOL/L (3.5-4.9)
[2016-12-14 04:03] LABS: AUTOMATED NEUTROPHIL # 19.3 TH/MM3 (1.8-7.7); BASOPHIL # 0.2 TH/MM3 (0-0.2); LYMPH % 1.6 % (9.0-44.0); LYMPHOCYTE # 0.3 TH/MM3 (1.0-4.8); MEAN CELL VOLUME 93.6 FL (80.0-100.0); MEAN CORPUSCULAR HEMOGLOBIN 31.7 PG (27.0-34.0); MEAN CORPUSCULAR HGB CONC 33.9 % (32.0-36.0); NEUT % 95.4 % (16.0-70.0); PLATELET COUNT 217 TH/MM3 (150-450); RED BLOOD COUNT 4.17 MIL/MM3 (4.50-5.90); RED CELL DISTRIBUTION WIDTH 12.3 % (11.6-17.2); WHITE BLOOD COUNT 20.3 TH/MM3 (4.0-11.0)
[2016-12-14 04:06] LABS: HEMO FLAGS AUTO DIFF
--- NOTE | 2016-12-14 04:09 | RADRPT ---
EXAM DATE/TIME: 12/14/2016 03:54 [facility] COMPARISON: No previous studies available for comparison. INDICATIONS : Stroke alert; left arm weakness and garbled speech RADIATION DOSE: 32.43 CTDIvol (mGy) Several attempts were made to call the report to Dr Andres at 0400 hours. Connection was succesfull y made at 0407 hours. MEDICAL HISTORY : Chronic obstructive pulmonary disease. Gastroesophageal reflux disease. Cardiovascular diseaseHyperte nsion. Diabetes. Prostate cancer. SURGICAL HISTORY : None. ENCOUNTER: Initial ACUITY: 1 day PAIN SCALE: 0/10 LOCATION: cranial TECHNIQUE: Multiple contiguous axial images were obtained of the head. Using automated exposure control and adj ustment of the mA and/or kV according to patient size, radiation dose was kept as low as reasonably a chievable to obtain optimal diagnostic quality images. DICOM format image data is available electro nically for review and comparison. FINDINGS: CEREBRUM: The ventricles are normal for age. No evidence of midline shift, mass lesion, hemorrhage or acute in farction. No extra-axial fluid collections are seen. POSTERIOR FOSSA: The cerebellum and brainstem are intact. The 4th ventricle is midline. The cerebellopontine angle i s unremarkable. EXTRACRANIAL: The visualized portion of the orbits is intact. SKULL: The calvaria is intact. No evidence of skull fracture. CONCLUSION: Negative noncontrast CT brain. Aristeo Tellez MD on December 14, 2016 at 4:00 Board Certified Radiologist. This report was verified electronically.
[2016-12-14 04:19] LABS: APTT (PATIENT) 26.9 SEC (24.3-30.1); INTERNATIONAL NORMALIZED RATIO 1.1 RATIO; PROTHROMBIN TIME - PATIENT 12.6 SEC (9.8-11.6)
[2016-12-14] MEDS ORDERED: IOHEXOL 350 MG/ML 10 ML VIAL (for RAD DIAG) IV ONE (04:28)
[2016-12-14 04:45] LABS: SCAN/DIFF AUTO DIFF CONFIRMED
--- NOTE | 2016-12-14 04:48 | RADRPT ---
EXAM DATE/TIME: 12/14/2016 04:20 [facility] COMPARISON: No previous studies available for comparison. INDICATIONS : Stroke alert; left arm weakness and garbled speech. IV CONTRAST: 76 cc Omnipaque 350 (iohexol) IV ; Cumulative dose for multiple exams. RADIATION DOSE: 27.22 CTDIvol (mGy) ; Combined studies MEDICAL HISTORY : Chronic obstructive pulmonary disease. Gastroesophageal reflux disease. Cardiovascular diseaseHyperte nsion. Prostate cancer. Diabetes SURGICAL HISTORY : None. ENCOUNTER: Initial ACUITY: 1 day PAIN SCALE: 0/10 LOCATION: cranial TECHNIQUE: Volumetric scanning was performed using a multi-row detector CT scanner. The data was post processed with a variety of visualization algorithms including full volume maximum intensity projection, multi -planar sliding thin slab reformation, curved planar reformation, and surface rendering techniques. Using automated exposure control and adjustment of the mA and/or kV according to patient size, radiat ion dose was kept as low as reasonably achievable to obtain optimal diagnostic quality images. DICO M format image data is available electronically for review and comparison. FINDINGS: There is excellent visualization of the major intracranial arteries out to the second-order branch ve ssels. Symmetric appearance to the MCA side branches bilaterally. There is no evidence for aneurysm , vessel truncation or stenosis, and no evidence for vascular malformation. Normal size to the anterior communicating artery. Flow is discernible in the left PCOM. The basilar artery has a normal configuration. CONCLUSION: Negative intracranial CTA. No evidence of vessel truncation. Aristeo Tellez MD on December 14, 2016 at 4:45 Board Certified Radiologist. This report was verified electronically.
--- NOTE | 2016-12-14 04:50 | RADRPT ---
EXAM DATE/TIME: 12/14/2016 04:20 [facility] COMPARISON: No previous studies available for comparison. INDICATIONS : Stroke alert; left arm weakness and garbled speech. IV CONTRAST: 76 cc Omnipaque 350 (iohexol) IV ; Cumulative dose for multiple exams. RADIATION DOSE: 27.22 CTDIvol (mGy) ; Combined studies MEDICAL HISTORY : Chronic obstructive pulmonary disease. Gastroesophageal reflux disease. Cardiovascular diseaseProstat e cancer. Diabetes. Prostate cancer. Hypertension. SURGICAL HISTORY : None. ENCOUNTER: Initial ACUITY: 1 day PAIN SCALE: 0/10 LOCATION: neck Elevated flow velocities and ICA/CCA ratios have been found to correlate with increased degrees of vessel stenosis, calculated as percentage of diameter relative to a normal segment of distal ICA/CCA. TECHNIQUE: Volumetric scanning was performed using a multirow detector CT scanner. The data was post processed with a variety of visualization algorithms including full-volume maximum intensity projection, multip lanar sliding thin-slab reformation, curved-planar reformation, and surface-rendering techniques. Us ing automated exposure control and adjustment of the mA and/or kV according to patient size, radiatio n dose was kept as low as reasonably achievable to obtain optimal diagnostic quality images. DICOM f ormat image data is available electronically for review and comparison. FINDINGS: AORTIC ARCH: There is a three-vessel origin of the great vessels from the aorta. No evidence of ostial narrowing. RIGHT CAROTID: The common carotid artery is intact. The carotid bulb has a normal configuration without ulceration o r narrowing. There is some wall calcification without luminal narrowing. The internal carotid arter y lumen is smooth without stenosis. The external carotid artery is intact. LEFT CAROTID: The common carotid artery is intact. The carotid bulb has a normal configuration without ulceration or narrowing. There is small calcification without luminal narrowing. The internal carotid artery l umen is smooth without stenosis. The external carotid artery is intact. VERTEBRALS: The right vertebral artery is slightly larger the left. No stenotic lesions are seen. CONCLUSION: No significant stenoses in the carotids. Incidental note of bilateral pleural effusions and upper lo be emphysema. Aristeo Tellez MD on December 14, 2016 at 4:47 Board Certified Radiologist. This report was verified electronically.
[2016-12-14] MEDS ORDERED: SODIUM BICARBONATE 8.4% INJ 50 MEQ/50 ML SYR IV ONE (05:00)
[2016-12-14] MEDS ORDERED: EPINEPHrine HCL (1:10,000) 1 MG/10 ML SYRINGE IV ONE (05:00)
[2016-12-14] MEDS ORDERED: ALTEPLASE BOLUS IV ONE (05:45)
[2016-12-14] MEDS ORDERED: [UNRECOGNIZED DRUG - REMARK] PRN (05:45)
[2016-12-14] MEDS ORDERED: [UNRECOGNIZED DRUG - REMARK] PRN (05:45)
[2016-12-14] MEDS ORDERED: SODIUM CHLORIDE 0.9% 50 ML BAG IV FLUSH ONE (05:45)
[2016-12-14] MEDS ORDERED: ALTEPLASE DRIP IV ONE (05:45)
[2016-12-14] MEDS ORDERED: METOPROLOL TARTRATE 5 MG/5 ML VIAL IV PUSH ONE ×2 (06:05→06:10)
--- NOTE | 2016-12-14 06:23 | PD.CARD.PN ---
Subjective Subjective Remarks The patient has minimal residual chest discomfort which is unchanged. He otherwise has no cardiac complaints. I was called because of a left hemiparesis. This has significantly improved. His EKG showed rapid atrial fibrillation with nonspecific T-wave changes and minimal lateral precordial ST elevation which he did have earlier in the hospital stay. He is alert and oriented. Objective Medications Reviewed Vital Signs / I&O Vital Signs Date Time Temp Pulse Resp B/P Pulse Ox O2 Delivery O2 Flow Rate FiO2 12/14/16 01:00 112 12/14/16 00:00 112 12/13/16 23:00 99.1 120 20 114/86 95 12/13/16 23:00 95 Nasal Cannula 3.00 12/13/16 23:00 116 12/13/16 22:36 20 12/13/16 22:00 72 12/13/16 21:56 94 Nasal Cannula 3.00 12/13/16 21:00 74 12/13/16 20:00 74 12/13/16 19:00 98.7 71 22 124/77 95 12/13/16 19:00 78 12/13/16 19:00 95 Nasal Cannula 3.00 12/13/16 18:02 77 12/13/16 17:12 74 12/13/16 16:26 74 12/13/16 16:23 18 12/13/16 15:55 98.7 139 18 126/79 93 12/13/16 15:40 98.7 125 18 129/79 95 12/13/16 15:35 98.7 121 18 129/88 92 12/13/16 15:13 141 12/13/16 15:11 98.7 137 18 144/93 97 12/13/16 15:11 97 Nasal Cannula 3.00 12/13/16 14:39 128 12/13/16 13:19 78 12/13/16 12:19 79 12/13/16 12:06 90 12/13/16 11:32 81 12/13/16 11:32 98.6 82 18 135/84 92 12/13/16 11:32 92 Nasal Cannula 3.00 12/13/16 10:15 85 12/13/16 09:31 87 12/13/16 08:40 86 12/13/16 07:55 94 Nasal Cannula 3.00 12/13/16 07:55 97.4 90 22 119/82 94 12/13/16 07:55 90 I/O 12/13/16 12/13/16 12/13/16 12/14/16 12/14/16 12/14/16 07:00 15:00 23:00 07:00 15:00 23:00 Intake Total 720 ml 480 ml Output Total 325 ml Balance 395 ml 480 ml Intake Oral 720 ml 480 ml Output Urine Total 325 ml # Voids 5 5 Physical Exam GENERAL: Well-nourished, well-developed patient in no apparent distress. SKIN: Warm and dry. NECK: JVD normal - less than or equal to 5 cm H20. CARDIOVASCULAR: Irregular rate and rhythm without murmurs, gallops, or rubs. RESPIRATORY: Normal breath sounds - equal bilaterally. No accessory muscle use. No wheezes, rales or rubs. PERIPHERY: No cyanosis, or edema. Mild left hand weakness. Laboratory Laboratory Tests Test 12/13/16 12/13/16 12/14/16 12:24 23:22 03:45 Lactic Acid Level 2.6 mmol/L Urine Color YELLOW Urine Turbidity CLEAR Urine pH 6.5 Urine Specific [place] 1.023 Urine Protein TRACE mg/dL Urine Glucose (UA) NEG mg/dL Urine Ketones NEG mg/dL Urine Occult Blood NEG Urine Nitrite NEG Urine Bilirubin NEG Urine Urobilinogen LESS THAN 2.0 MG/DL Urine Leukocyte Esterase NEG Urine RBC 1 /hpf Urine WBC 2 /hpf Urine Mucus FEW /lpf Microscopic Urinalysis Comment CULT NOT INDICATED White Blood Count 20.3 TH/MM3 Red Blood Count 4.17 MIL/MM3 Hemoglobin 13.2 GM/DL Bedside Hemoglobin 13.3 G/DL Hematocrit 39.0 % Bedside Hematocrit 39.0 % Mean Corpuscular Volume 93.6 FL Mean Corpuscular Hemoglobin 31.7 PG Mean Corpuscular Hemoglobin 33.9 % Concent Red Cell Distribution Width 12.3 % Platelet Count 217 TH/MM3 Mean Platelet Volume 7.0 FL Neutrophils (%) (Auto) 95.4 % Lymphocytes (%) (Auto) 1.6 % Monocytes (%) (Auto) 2.0 % Eosinophils (%) (Auto) 0.0 % Basophils (%) (Auto) 1.0 % Neutrophils # (Auto) 19.3 TH/MM3 Lymphocytes # (Auto) 0.3 TH/MM3 Monocytes # (Auto) 0.4 TH/MM3 Eosinophils # (Auto) 0.0 TH/MM3 Basophils # (Auto) 0.2 TH/MM3 CBC Comment AUTO DIFF Differential Comment AUTO DIFF CONFIRMED Prothrombin Time 12.6 SEC Prothromb Time International 1.1 RATIO Ratio Activated Partial 26.9 SEC Thromboplast Time Fibrinogen 425 mg/dL Bedside Sodium 133 MMOL/L Bedside Potassium 4.6 MMOL/L Bedside Chloride 98 MMOL/L Bedside Blood Urea Nitrogen 29 MG/DL Bedside Creatinine 1.0 MG/DL Bedside Glucose 156 MG/DL Total Creatine Kinase 135 U/L Troponin I 6.02 NG/ML Blood Type B POSITIVE Antibody Screen NEGATIVE Blood Bank Comment Imaging Last 48 hours Impressions Neck CTA 12/14/16 0000 Signed Impressions: Service Date/Time: Wednesday, December 14, 2016 04:20 - CONCLUSION: No significant stenoses in the carotids. Incidental note of bilateral pleural effusions and upper lobe emphysema. Aristeo Tellez MD Head CTA 12/14/16 0000 Signed Impressions: Service Date/Time: Wednesday, December 14, 2016 04:20 - CONCLUSION: Negative intracranial CTA. No evidence of vessel truncation. Aristeo Tellez MD Head CT 12/14/16 0000 Signed Impressions: Service Date/Time: Wednesday, December 14, 2016 03:54 - CONCLUSION: Negative noncontrast CT brain. Aristeo Tellez MD Chest X-Ray 12/13/16 0000 Signed Impressions: Service Date/Time: Tuesday, December 13, 2016 03:53 - CONCLUSION: Minimal bibasilar densities. Ananth Mejias MD Assessment and Plan Assessment and Plan Problems: New stroke/TIA Recent pericardial effusion with pericardial drainage Atrial fibrillation Hypertension Hyperlipidemia Recommendations: Continue amiodarone and Cardizem and I will add in intravenous and oral metoprolol for rate control. We will hold off on TPA as his neurologic status is improving and he had recent pericardial drainage. I have asked the nursing staff to contact neurology regarding this. I have spoken with Dr. Mariscal of critical care. They will consult on the patient. I am concerned about full anticoagulation in him given his pericarditis but this may be necessary. Tommy Hill MD Dec 14, 2016 06:23
[2016-12-14] MEDS ORDERED: CHLORHEXIDINE GLUCONATE 2 % 1 PACK (2 CLOTHS)(extra cloths) TOPICAL PRN (06:30)
[2016-12-14] MEDS ORDERED: METOPROLOL TARTRATE 25 MG TAB PO SCH (06:30)
[2016-12-14] MEDS: SIMETHICONE 125 MG CHEWABLE TAB PO SCH ×3 (06:50→22:18)
--- NOTE | 2016-12-14 07:30 | MB ---
cc: NANDA MCARTHUR M.D. DATE OF CONSULTATION: 12/14/2016 HISTORY OF PRESENT ILLNESS The patient is a 66-year-old seen for a Stroke Alert. The stroke alert was called around 3:40 this morning. I spoke to the nurse taking care of the urgent status and we went over the situation on several occasions. The patient was doing well neurologic-ny and reportedly holding his oxygen treatment with the left hand about 15 minutes or so before he was discovered to have a neurologic deficit. The patient called for the nursing staff and he was found to have left-sided weakness. He was evaluated promptly and when I was called the patient was already being taken to the CT scan. Subsequent to that I received a call from the radiologist with a no acute abnormality seen on the CT scan of the brain. We went over the patient's neurologic exam and the NIH assess was 7. We felt the patient was a candidate for TPA. There was the use of Eliquis at home but this was seven days ago and the patient has been receiving Lovenox but only 40 mg daily. He did have a pericardiocentesis on 12/08/2016 and the chest tube was removed I believe on the or . His current medications were reviewed. 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 The troponin was elevated and both the medicine team and cardiology agreed with the TPA. NEUROLOGICAL EXAMINATION When I examined him about 20 minutes ago the patient was awake, alert, grossly oriented, although he had some difficulty with the date, but according to the nursing staff he never knows the specific day of the week. He has understanding about his medical background and provided information on this that was appropriate. He says he has been taking the Eliquis for six months or so. His speech is minimally dysarthric but probably nothing acute. He does have left hemiparesis. His hemiparesis is maximum proximally. 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 He does well with the right-sided limbs. No obvious sensory deficit. Reflexes are 1-2+ including the ankles. Plantar responses are flexor. ASSESSMENT 1. Left hemiparetic acute syndrome. 2. Atrial fibrillation, intermittent, status post ablation in the past. 3. Pleural effusion, recently treated with pericardiocentesis. 4. Elevated troponin, possible acute MA. PLAN/RECOMMENDATIONS Despite the risks, we felt that this patient was a reasonable candidate for TPA. The patient was in agreement with the TPA and by the time I was examining him he was just about to start the TPA bolus as it had just arrived in the room. I had talked to the pharmacist before this could be accomplished due to some questions about the timing and had numerous conversations in between the Stroke Alert call and the time of this dictation with the nurse taking care of this urgent situation. The patient is to be transferred to the intensive care unit after the TPA is given. I should mention that I looked at the labs and his platelet count was 217, APTT was normal and the blood sugar was around 115. Thank you for asking us to assist in his care. I will follow this patient with you. MD JUSTEN Rebollar/BT /6:01 AM /7:10 AM
[2016-12-14] MEDS: RESP: BUDESONIDE 0.5 MG/2 ML NEB NEB SCH ×2 (08:04→20:58)
[2016-12-14] MEDS: guaiFENesin E.R. 600 MG TAB PO SCH ×2 (08:21→22:18)
[2016-12-14] MEDS: ENOXAPARIN SODIUM 40 MG/0.4 ML SYRINGE SQ SCH (08:22)
[2016-12-14] MEDS: PANTOPRAZOLE SOD 40 MG DELAYED RELEASE TAB PO SCH (08:22)
[2016-12-14] MEDS: AMIODARONE 200 MG TAB PO SCH (08:22)
[2016-12-14] MEDS: LISINOPRIL 10 MG TAB PO SCH (08:22)
[2016-12-14] MEDS: predniSONE 20 MG TAB PO SCH (08:22)
[2016-12-14] MEDS: MORPHINE SULFATE 4 MG/ML INJ IV PUSH PRN (08:23)
[2016-12-14] MEDS ORDERED: ETOMIDATE 20 MG/10 ML VIAL ONE (08:33)
[2016-12-14] MEDS ORDERED: MIDAZOLAM HCL 5 MG/ML VIAL (1 ML) ONE (08:45)
[2016-12-14] MEDS ORDERED: VECURONIUM BROMIDE 10 MG VIAL ONE (08:51)
[2016-12-14 09:02] LABS: BLOOD GAS BASE EXCESS -3.4 mmol/L (-2-2); BLOOD GAS CARBOXYHEMOGLOBIN 1.2 % (0-4); BLOOD GAS HCO3 21 mmol/L (22-26); BLOOD GAS O2 HGB SATURATION 97 % (90-100); BLOOD GAS PCO2 41 mmHg (38-42); BLOOD GAS PO2 281 mmHg (61-120); BLOOD GAS TOTAL HGB 12.7 G/DL (12.0-16.0); CRITICAL VALUE NO; TEMP CORR TO 98.6
[2016-12-14 09:03] LABS: DRAW SITE ART LINE; FIO2 100 %; NUMBER OF ARTERIAL PUNCTURES 0; OXYGEN DEVICE VENTILATOR; STAT NO; ULNAR PULSE PRESENT
--- NOTE | 2016-12-14 09:10 | PD.PROCEDR ---
Procedure Note Procedure REASON FOR PROCEDURE Hemodynamic instability, invasive blood pressure monitoring PROCEDURE PERFORMED Right femoral arterial catheter placement CONSENT Emergency procedure, profound shock ANESTHESIA Local injection of 1% Lidocaine DESCRIPTION OF THE PROCEDURE The patient was placed in supine, position. The right groin area was exposed and cleansed with ChloraPrep, times two. Sterile drape was used to cover the patient, with the site exposed, under sterile conditions including cap, face mask, sterile gown, and sterile gloves. Procedure done as emergency and unable to follow full sterile precautions. The introducer needle was inserted with negative pressure in syringe and arterial flash was obtained. The guide wire was then advanced without any restriction and the needle was removed. Using Seldinger technique the 20 G arterial catheter was advanced over the guide wire. The guide wire was removed. Good arterial wave form noted after connecting to transducer. Antibiotic disc was placed around arterial line line at puncture site. The arterial line was secured to the skin with one interrupted 2.0 silk sutures. COMPLICATIONS: No apparent complications ESTIMATED BLOOD LOSS: Less than 3 cc. Rosanne Mariscal MD Dec 14, 2016 09:10
--- NOTE | 2016-12-14 09:25 | PD.PROCEDR ---
Central Line Procedure REASON FOR PROCEDURE Central venous access PROCEDURE PERFORMED Central line placement: Right IJ CONSENT Procedure was done emergently as patient was hemodynamically stable ANESTHESIA Local injection of 1% Lidocaine DESCRIPTION OF THE PROCEDURE The patient was placed in supine, mild Trendelenburg position. The area was exposed and cleansed with ChloraPrep, times two. Large sterile drape was used to cover the patient, with the site exposed, under sterile conditions including cap, face mask, sterile gown, and sterile gloves. On single attempt, the introducer needle was inserted with negative pressure in syringe and venous flash was obtained. The guide wire was then advanced without any restriction and the needle was removed. The dilator was used without any complications. Using Seldinger technique the [ ] catheter was advanced over the guide wire to a depth of [ ] centimeters. The guide wire was removed. All ports were aspirated with dark venous blood return and flushed easily with sterile saline. All ports were capped. Antibiotic disc was placed around central line at puncture site. The central line was secured to the skin with two interrupted 2.0 silk sutures. The area was bandaged with sterile see-through central line bandage. RADIOLOGICAL DATA Ultrasound guidance was used to locate right IJ vein. CXR ordered to verify line placement COMPLICATIONS: No apparent complications ESTIMATED BLOOD LOSS: Less than 1 cc. Ann-Marie Tejada MD Dec 14, 2016 09:25
[2016-12-14] MEDS ORDERED: POTASSIUM PHOSPHATE INJ 30 MMOL in SODIUM CHLOR 0.9% 250 ML INJ 250 ML IV PRN (09:30)
[2016-12-14] MEDS ORDERED: POTASSIUM CHLORIDE 25 MEQ EFFERVESCENT TAB PO PRN (09:30)
[2016-12-14] MEDS ORDERED: POTASSIUM PHOSPHATE MONOBASIC 500 MG TAB PO/TUBE PRN (09:30)
[2016-12-14] MEDS ORDERED: POTASSIUM PHOSPHATE MONOBASIC 500 MG TAB PO PRN (09:30)
[2016-12-14] MEDS ORDERED: MAGNESIUM OXIDE 400 MG TAB PO PRN (09:30)
[2016-12-14] MEDS ORDERED: MAGNESIUM SULFATE INJ 4 GM in SODIUM CHLORIDE 0.9% INJ 92 ML IV PRN (09:30)
[2016-12-14] MEDS ORDERED: POTASSIUM CHLOR 20 MEQ PREMIX 100 ML IV PRN ×2 (09:30)
[2016-12-14] MEDS ORDERED: SODIUM PHOSPHATE INJ 30 MMOL in SODIUM CHLOR 0.9% 250 ML INJ 240 ML IV PRN (09:30)
[2016-12-14] MEDS ORDERED: MAGNESIUM SULFATE INJ 2 GM in SODIUM CHLORIDE 0.9% INJ 96 ML IV PRN (09:30)
[2016-12-14] MEDS ORDERED: POTASSIUM CHLOR 40 MEQ PREMIX 100 ML IV PRN ×2 (09:30)
[2016-12-14] MEDS ORDERED: GLUCAGON 1 MG/ML VIAL OTHER PRN (09:45)
[2016-12-14] MEDS ORDERED: VANCOMYCIN INJ 1,000 MG in SODIUM CHLOR 0.9% 250 ML INJ 250 ML IV ONE (09:45)
[2016-12-14] MEDS ORDERED: DEXTROSE 50% IN WATER 50 ML VIAL(D50) IV PRN (09:45)
--- NOTE | 2016-12-14 09:56 | RADRPT ---
EXAM DATE/TIME: 12/14/2016 09:26 [facility] COMPARISON: CHEST SINGLE AP, December 13, 2016, 3:53. INDICATIONS : Endotracheal tube and line placement. MEDICAL HISTORY : Chronic obstructive pulmonary disease. Hypertension. Diabetes mellitus type Afib SURGICAL HISTORY : ablation Afib ENCOUNTER: Subsequent ACUITY: 4 - 6 days PAIN SCORE: Non-responsive. LOCATION: Bilateral upper chest FINDINGS: ET tube, nasogastric tube and central line are in good position. The heart is enlarged without overt congestive failure. There is no pneumothorax. The portion of the bony skeleton visualized is unrema rkable.CONCLUSION: Support apparatus in good position. Ang Vera MD FACR on December 14, 2016 at 9:54 Board Certified Radiologist. This report was verified electronically.
[2016-12-14] MEDS: INSULIN NovoLIN REGULAR SUPPLEMENTAL SCALE SQ SCH ×4 (10:00→22:52)
--- NOTE | 2016-12-14 10:08 | EKG ---
Date Performed: 12/12/2016 Time Performed: 22:36:26 PTAGE: 66 years EKG: Sinus rhythm Compared to the previous tracing sinus rhythm replaced atrial flutter with normalization of tracing Normal ECG PREVIOUS TRACING : 12/07/2016 08.11 DOCTOR: Bernardo Davidson Interpretating Date/Time 12/14/2016 10:08:21
[2016-12-14] MEDS: RESP: ALBUTEROL 2.5 MG/IPRATROPIUM 0.5 MG NEB (SCH) NEB ×3 (10:22→20:58)
[2016-12-14 10:35] LABS: AUTOMATED NEUTROPHIL # 22.3 TH/MM3 (1.8-7.7); BASOPHIL # 0.2 TH/MM3 (0-0.2); BASOPHIL % 0.7 % (0.0-2.0); HEMATOCRIT 37.9 % (39.0-51.0); HEMO FLAGS DIFF FINAL; LYMPH % 0.8 % (9.0-44.0); LYMPHOCYTE # 0.2 TH/MM3 (1.0-4.8); MEAN CELL VOLUME 93.7 FL (80.0-100.0); MEAN CORPUSCULAR HEMOGLOBIN 31.6 PG (27.0-34.0); MEAN CORPUSCULAR HGB CONC 33.7 % (32.0-36.0); MONO % 1.4 % (0.0-8.0); NEUT % 97.1 % (16.0-70.0); PLATELET COUNT 220 TH/MM3 (150-450); RED BLOOD COUNT 4.05 MIL/MM3 (4.50-5.90); RED CELL DISTRIBUTION WIDTH 12.6 % (11.6-17.2); WHITE BLOOD COUNT 22.9 TH/MM3 (4.0-11.0)
[2016-12-14] MEDS: VASOPRESSIN INJ 40 UNITS in DEXTROSE 5% IN WATER 100ML INJ 98 ML IV SCH ×2 (10:38)
[2016-12-14] MEDS ORDERED: Vancomycin Consult Pharmacy 1 EA OTHER SCH (10:45)
[2016-12-14] MEDS ORDERED: NOREPINEPHRINE-DEXTROSE DRIP 250 ML IV ONE (10:54)
[2016-12-14] MEDS: PIPERACIL-TAZO 4.5 GM PREMIX 100 ML IV SCH ×3 (10:57→22:19)
[2016-12-14 11:00] LABS: BICARBONATE 26.1 MEQ/L (21.0-32.0); MAGNESIUM 2.1 MG/DL (1.5-2.5); POTASSIUM 4.2 MEQ/L (3.5-5.1)
[2016-12-14 11:01] LABS: CALCIUM-PROTEIN CORRECTED 8.1 MG/DL (8.5-10.1); TOTAL BILIRUBIN ADULT 1.9 MG/DL (0.2-1.0)
[2016-12-14] MEDS: SODIUM CHLOR 0.9% 1000 ML INJ 1,000 ML IV SCH ×2 (11:03→22:52)
[2016-12-14] MEDS ORDERED: TERBUTALINE INJ 1 MG/ML AMP SQ PRN (11:15)
[2016-12-14 11:22] LABS: CREATINE KINASE 75 U/L (39-308)
--- NOTE | 2016-12-14 11:27 | MB ---
cc: SILVERIO DRUMMOND DATE OF CONSULTATION: 12/14/2016 1952 HISTORY OF PRESENT ILLNESS The patient is a 66-year-old male with past medical history of chronic atrial fibrillation on Eliquis at home with multiple ablations in the past, COPD, diabetes mellitus, hypertension and gastroesophageal reflux disease. He was admitted on December [address] Mcdaniel's service for chest pain associated with shortness of breath and dyspepsia. He had chest x-ray on arrival which showed a right base infiltrate and possibility of pericardial effusion. He underwent CT-guided pericardiocentesis on December 08 with removal of 600 mL of pericardial fluid. CT scan of the chest was obtained on December 12 which showed small bilateral pleural effusion and consolidating airspace disease in the bases, in addition to persistent small pericardial effusion. No other significant abnormalities noted. During his hospital course he had an echocardiogram which showed LV systolic function low normal with EF of 50-55% and moderate pericardial effusion. Overnight the patient had acute neurologic Changes. Stroke alert was called as the patient was found to have left-sided hemiparesis and neurology service was consulted. The patient was seen by Dr. Andres and the patient was transferred from [facility] to the [facility]. The patient initially was scheduled to undergo TPA, however, that was placed on hold as his neurologic status was improving. In addition he had a recent pericardial drainage. The patient was on Cardizem drip overnight at 15 mg an hour for atrial fibrillation with RVR and he was on 4 liters nasal cannula. However, the patient suddenly became unresponsive with agonal breathing, hypoxic with saturation in the 60s and he was found to be in V-tach arrest. He received one round of epi bicarb and was shocked x1 with 200 joules. The patient was intubated by myself and placed on full mechanical ventilation. ABG post intubation showed a pH of 7.34, CO2 41, pAO2 281, bicarb 21, saturation of 97% on assist control ventilation rate of 20, tidal volume 600, PEEP of 5 and 100% FIO2. His labs from this morning showed an increase of troponin from 0.02 on December 12 to 6.02 this morning. From a neuro standpoint he had a stat CT scan of the brain earlier this morning which did not show any evidence of acute intracranial process. In addition a CTA of the neck showed no significant stenosis in the carotids and CT of the brain was negative as well. When doing the code the patient became hypotensive and was started on Levophed and is currently sedated with fentanyl. PAST MEDICAL HISTORY Past medical history significant for: 1. COPD. 2. Diabetes mellitus. 3. Gastroesophageal reflux disease. 4. Chronic atrial fibrillation with previous multiple ablations. 5. Hyperlipidemia. 6. Erectile dysfunction. 7. History of prostate cancer status post radiation therapy. PAST SURGICAL HISTORY 1. Status post CT-guided pericardiocentesis on December 08. 2. Previous EPS with ablation studies last performed by Dr. Diamond on November 09. 3. Repair of left ankle fracture. SOCIAL HISTORY The patient has history of tobacco use. ALLERGIES MONOSODIUM GLUTAMATE. MEDICATIONS Reported medications include: 1. Levaquin. 2. Amiodarone. 3. Lisinopril. 4. Protonix. 5. Eliquis. 6. Atorvastatin. FAMILY HISTORY Liver disease, malignancy, hypertension runs in the family. REVIEW OF SYSTEMS As per HPI, the rest of the review of systems limited as the patient is intubated. PHYSICAL EXAMINATION The patient is a 66-year-old status post V-tach arrest, currently intubated, sedated and on pressors. VITAL SIGNS: Afebrile with temperature of 99.1. Pulse of 80 currently with blood pressure 115/58, MAP of 76, saturation 100%. HEENT: Atraumatic, normocephalic. Pupils equal, round, reactive to light and accommodation. Extraocular muscles intact. Conjunctivae pink. Nonicteric sclerae. Oral mucosa within normal. NECK: Supple. No JVD, adenopathy or thyromegaly. Trachea midline. Orally intubated. CARDIOVASCULAR: Tachycardic, irregularly, irregular. Normal S1-S2. No murmurs, rubs or gallops noted. PULMONARY: Bilateral equal air entry with no rales or wheezing. ABDOMEN: Soft, nontender, no distension. Positive bowel sounds. EXTREMITIES: No cyanosis, clubbing or edema. NEURO: Intubated, sedated. LABORATORY DATA Sodium 133, potassium 4.6, chloride 98, BUN 29, creatinine 1.0, glucose 156, total CK 135, troponin 6.02, WBC 20, hemoglobin 13, hematocrit 39, platelet count of 217, INR 1.1, PT 12.6, PTT 26.9, fibrinogen 425. RADIOGRAPHIC STUDIES The CT scan of the brain, CTA of the head, CTA of the neck showed no acute process. A chest x-ray on December 13 showed minimal bibasilar densities. IMPRESSION 1. Status post V-tach arrest. 2. Status post CT-guided pericardiocentesis with removal of 600 mL pericardial fluid on December 08. 3. Atrial fibrillation with rapid ventricular response. 4. Acute coronary syndrome with elevated troponins. 5. Acute CVA with left-sided hemiparesis. 6. Leukocytosis. 7. Hypotension. 8. COPD. 9. Diabetes mellitus. 10. Gastroesophageal reflux disease. 11. History of prostate cancer. RECOMMENDATIONS 1. Monitor neuro status closely and continue with fentanyl drip for sedation and vent synchrony. The patient noted to have left-sided hemiparesis during the night and was seen by Dr. Andres from neurology service. Decision for TPA was placed on hold given recent pericardial effusion and resolution of his neuro deficits. A CT scan of the brain along with CT of the neck and the head are negative for acute intracranial process. Will repeat CT scan of the brain. 2. Continue with vent support and maintain sats above 92%. 3. Bronchodilators in the form of DuoNeb q. 6 and will initiate ICU vent bundle. The patient is on prednisone 20 mg p.o. b.i.d. 4. Will check chest x-ray post-intubation. 5. Wean off Levophed, monitor heart rate and blood pressure closely and maintain MAP greater than 65 mmHg. 6. Monitor cardiac enzymes with troponins. The patient is status post pericardiocentesis on December 08 with 600 mL of pericardial fluid. The patient was seen with by Dr. Hill earlier. Will repeat limited echo. 7. Hold Cardizem drip, lisinopril and Lopressor for now as the patient is on pressors. 8. Monitor renal function, I&O's and place on electrolyte replacement protocol. 9. IV fluids in the form of NS at 100 mL an hour. 10. Keep n.p.o. for now and place on Protonix 40 mg IV daily for GI prophylaxis. 11. Start empiric antibiotics in the form of Zosyn 4.5 mg IV q. 6 and will give one dose of vancomycin [address] scan of the chest from December 12 showed consolidating airspace disease in the bases. Will obtain sputum culture with gram stain. Followup on blood cultures and fluid culture. In addition will obtain strep pneumonia and Legionella urinary antigen. I will consult infectious disease service for worsening leukocytosis. 12. Monitor CBC and coags. 13. Place on sliding scale insulin with Accu-Chek q. 4-hour for glycemic control. 14. GI prophylaxis with Protonix 40 mg IV daily and DVT prophylaxis with SCDs. In addition the patient is on Lovenox 40 mg subcu daily. 15. Lines. Right IJ central line and right radial art line were placed. 16. Further recommendations will be based on hospital course. 17. Critical care time 40 minutes excluding procedures. MD ALIZA Sung/PORFIRIO /9:38 AM /10:42 AM
[2016-12-14] MEDS ORDERED: VANCOMYCIN INJ 1,000 MG in SODIUM CHLOR 0.9% 250 ML INJ 250 ML IV SCH (12:00)
[2016-12-14] MEDS ORDERED: VANCOMYCIN INJ 1,250 MG in SODIUM CHLOR 0.9% 250 ML INJ 250 ML IV SCH (13:00)
--- NOTE | 2016-12-14 13:01 | ECHRPT ---
Indication: CONCLUSIONS There is a moderate size pericardial effusion present. Anterior measures @ 17mm and Posterior measures @ 15mm, no hemodynamically significant echocardiographic features were observed (no pre-tamponade physiology). BP: / HR: Rhythm: Sinus Technical Quality:Good FINDINGS PERICARDIUM There is a moderate size pericardial effusion present. Anterior measures @ 17mm and Posterior measures @ 15mm, no hemodynamically significant echocardiographic features were observed (no pre-tamponade physiology). Maria Alejandra Delatorre MD, FACC (Electronically Signed) Final Date:14 December 2016 12:59
[2016-12-14] MEDS: HYDROCORTISONE SOD SUCCINATE 100 MG VIAL IV PUSH SCH ×2 (14:18→22:19)
[2016-12-14] MEDS: NOREPINEPHRINE-DEXTROSE DRIP 250 ML IV SCH (14:40)
--- NOTE | 2016-12-14 15:39 | RADRPT ---
EXAM DATE/TIME: 12/14/2016 14:56 [facility] COMPARISON: CTA BRAIN W 3D RECON, December 14, 2016, 4:20. CT BRAIN W/O CONTRAST, December 14, 2016, 3:54. INDICATIONS : Post code today; neurological changes. RADIATION DOSE: 56.35 CTDIvol (mGy) MEDICAL HISTORY : Cardiovascular disease. Cardiovascular disease Carcinoma, prostate. SURGICAL HISTORY : cardiac ablation ENCOUNTER: Initial ACUITY: 1 day PAIN SCALE: Non-responsive LOCATION: cranial TECHNIQUE: Multiple contiguous axial images were obtained of the head. Using automated exposure control and adj ustment of the mA and/or kV according to patient size, radiation dose was kept as low as reasonably a chievable to obtain optimal diagnostic quality images. DICOM format image data is available electro nically for review and comparison. FINDINGS: CEREBRUM: Ventricles are normal. There is mild periventricular white matter low attenuation. In the left basal ganglia there is a new 6 mm area of low-density. The small locules of air are present in the left occ ipital region and near the right cerebellum, possibly within the sinus. No midline shift, mass lesio n, hemorrhage or acute infarction. No extra-axial fluid collections are seen. POSTERIOR FOSSA: There is a stable linear low density in the right cerebellum. EXTRACRANIAL: Visualized sinuses are clear. Nasogastric tube and endotracheal tube are present. Fluid pools depende ntly in the nasopharynx. SKULL: The calvaria is intact. No evidence of skull fracture. CONCLUSION: 1. There is a new 6 mm area low density in the left basal ganglia which could represent a recent area of ischemia. There is stable encephalomalacia in the right cerebellum. 2. Nonspecific punctate areas of air near the right cerebellum and left occipital region. These are o f uncertain etiology but may be related to retrograde venous air. The air in the right cerebellar reg ion is near the sinus. Since this is of uncertain etiology consider followup CT to assess for change. Davey Hernandez MD on December 14, 2016 at 15:32 Board Certified Radiologist. This report was verified electronically.
--- NOTE | 2016-12-14 16:21 | EKG ---
Date Performed: 12/14/2016 Time Performed: 09:40:02 PTAGE: 66 years EKG: Sinus rhythm . Possible anterior infarct - age undetermined Inferior/lateral ST-T changes may be due to myocardial ischemia Low QRS voltages in limb leads Abnormal ECG PREVIOUS TRACING : 12/14/2016 04.43 Compared to previous tracing, patient has converted to sinu s rhythm from prior atrial fibrillation. DOCTOR: Sabrina Ramirez Interpretating Date/Time 12/14/2016 16:20:10
--- NOTE | 2016-12-14 16:21 | EKG ---
Date Performed: 12/14/2016 Time Performed: 04:43:26 PTAGE: 66 years EKG: Atrial fibrillation with rapid ventricular response. Extensive ST-T changes may be due to m yocardial ischemia Abnormal ECG PREVIOUS TRACING : 12/12/2016 22.36 Compared to previous tracing, patient is now in atrial fibr illation. DOCTOR: Sabrina Ramirez Interpretating Date/Time 12/14/2016 16:19:44
--- NOTE | 2016-12-14 16:42 | PD.CONS ---
History of Present Illness Service Infectious disease Consult Requested By Dr Tejada Reason for Consult Evaluate patient with leukocytosis Primary Care Physician Kyra Dickens MD Diagnoses: History of Present Illness Patient seen and examined. Records reviewed. Patient is a 66-year-old male, who has had problem with recurrent atrial fibrillation with RVR, presented to the hospital complaining of chest pain, shortness of breath, and some heartburn. He has had multiple admissions for A. fib with RVR. In November 09, he underwent ablation. Despite that he continued to have problem rapid atrial fibrillation. On this admission he came in for the same problem, and he had an echo which showed moderate pericardial effusion. He underwent pericardiocentesis done by IR. The fluid looks exudative. He was seen by cardiology again, and he was being evaluated for repeat ablation. His had continued problem with chest pain on top of his atrial arrhythmia. Early this morning stroke alert was called since she was noted to have left-sided weakness. He was transferred to the intensive care unit, was being evaluated for thrombolytic therapy. Patient subsequently had cardiac arrest, and ended up getting intubated. He is currently on sedation. He is on Levophed. His monitor shows controlled rate. His white count went up to above 20,000, an infectious disease consultation has been requested to evaluate the patient. The pericardial fluid culture is negative. 2 blood cultures were done yesterday and those are now reported as growing strep anginosus. He had another echocardiogram today and again showing moderate pericardial effusion. Highest temperature has been about 99.8. He is currently on the vent. Infectious disease consultation has been requested to evaluate the patient with leukocytosis. Review of Systems ROS Limitations: Clinical Condition, Intubated Past Family Social History Allergies: Coded Allergies: Monosodium Glutamate (Verified Allergy, Intermediate, Hives, 12/02/16) Past Medical History Paroxysmal atrial fibrillation Hypertension DM Hyperlipidemia GERD Erectile dysfunction History of prostate cancer, received radiation therapy Hx of tobacco use Past Surgical History Repair of left ankle fracture following orthopedic injuries secondary to a fall EPS with ablation performed by Dr. Diamond (11/09/16) Active Ordered Medications Tylenol Albuterol Cordarone Lipitor Pulmicort Culture seen Cardizem Lovenox Fentanyl Romazicon Robitussin Solu-Cortef Insulin Atrovent Imodium Ativan Magnesium Morphine Levophed Protonix Zosyn Potassium Vancomycin Family History History of cancer, liver disease,, and hypertension Social History (+)Hx of tobacco, patient has smoked one pack per day for the last 45 years, quit 2 months ago (+)Alcohol use, 2 beers per day, Denies any illicit drug use Physical Exam Vital Signs Vital Signs Date Time Temp Pulse Resp B/P Pulse Ox O2 Delivery O2 Flow Rate FiO2 12/14/16 15:25 93 40 12/14/16 15:23 99 100 12/14/16 14:00 83 12/14/16 12:00 99.8 87 20 101/73 92 109/61 12/14/16 12:00 87 12/14/16 12:00 40 12/14/16 11:55 94 40 12/14/16 10:00 81 12/14/16 08:38 100 100 12/14/16 08:09 93 Nasal Cannula 4.00 12/14/16 08:00 104 29 97/73 94 12/14/16 08:00 109 12/14/16 08:00 94 Nasal Cannula 4.00 12/14/16 03:23 137 131/97 94 12/14/16 03:00 94 Nasal Cannula 4.00 12/14/16 01:00 112 12/14/16 00:00 112 12/13/16 23:00 99.1 120 20 114/86 95 12/13/16 23:00 95 Nasal Cannula 3.00 12/13/16 23:00 116 12/13/16 22:36 20 12/13/16 22:00 72 12/13/16 21:56 94 Nasal Cannula 3.00 12/13/16 21:00 74 12/13/16 20:00 74 12/13/16 19:00 98.7 71 22 124/77 95 12/13/16 19:00 78 12/13/16 19:00 95 Nasal Cannula 3.00 12/13/16 18:02 77 12/13/16 17:12 74 12/13/16 16:26 74 12/13/16 16:23 18 Physical Exam GENERAL: Patient is a well-nourished, well-developed CM; looks acutely ill appearing, diaphoretic, eyes open, L gaze, sedated on the vent, not responding , not in respiratory distress. SKIN: Warm and diaphoretic. No generalized rash, no ecchymoses and no evidence of embolic lesions. HEAD: Atraumatic. Normocephalic. No temporal wasting, or tenderness. EYES: [place] conjunctiva. No petechia or hemorrhage. Pupils equal, round and reactive to light. No scleral icterus. No injection or drainage. Orally intubated No sinus tenderness. Mucous membranes pink and moist. No oral lesions noted. No exudate. No oral thrush. NECK: Trachea midline. Supple and not tender, no meningeal signs CARDIOVASCULAR: Irregular rate and rhythm. Soft heart sounds. No murmurs, rubs or gallops heard RESPIRATORY: Coarse breath sounds bilaterally. Decreased at the bases. ABDOMEN: Soft, non-tender, nondistended. Bowel sounds present and normoactive. No guarding. No rebound. No organomegaly. EXTREMITIES: No clubbing, cyanosis, or edema. No joint effusion. No mottled NEUROLOGICAL: Has L gaze, eyes open, not responding PSYCHIATRIC: Unable to assess LINE: No evidence of infection : Muro in place, urine looks clear Laboratory Laboratory Tests Test 12/13/16 12/14/16 12/14/16 12/14/16 23:22 03:45 06:05 08:55 Urine Color YELLOW Urine Turbidity CLEAR Urine pH 6.5 Urine Specific [place] 1.023 Urine Protein TRACE Urine Glucose (UA) NEG Urine Ketones NEG Urine Occult Blood NEG Urine Nitrite NEG Urine Bilirubin NEG Urine Urobilinogen LESS THAN 2.0 Urine Leukocyte Esterase NEG Urine RBC 1 Urine WBC 2 Urine Mucus FEW Microscopic Urinalysis Comment CULT NOT INDICATED White Blood Count 20.3 Red Blood Count 4.17 Hemoglobin 13.2 Bedside Hemoglobin 13.3 Hematocrit 39.0 Bedside Hematocrit 39.0 Mean Corpuscular Volume 93.6 Mean Corpuscular Hemoglobin 31.7 Mean Corpuscular Hemoglobin 33.9 Concent Red Cell Distribution Width 12.3 Platelet Count 217 Mean Platelet Volume 7.0 Neutrophils (%) (Auto) 95.4 Lymphocytes (%) (Auto) 1.6 Monocytes (%) (Auto) 2.0 Eosinophils (%) (Auto) 0.0 Basophils (%) (Auto) 1.0 Neutrophils # (Auto) 19.3 Lymphocytes # (Auto) 0.3 Monocytes # (Auto) 0.4 Eosinophils # (Auto) 0.0 Basophils # (Auto) 0.2 CBC Comment AUTO DIFF Differential Comment AUTO DIFF CONFIRMED Prothrombin Time 12.6 Prothromb Time International 1.1 Ratio Activated Partial 26.9 Thromboplast Time Fibrinogen 425 Bedside Sodium 133 Bedside Potassium 4.6 Bedside Chloride 98 Bedside Blood Urea Nitrogen 29 Bedside Creatinine 1.0 Bedside Glucose 156 Total Creatine Kinase 135 Troponin I 6.02 Blood Type B POSITIVE Antibody Screen NEGATIVE Blood Bank Comment Nasal Screen MRSA (PCR) MRSA NOT DETECTED Blood Gas Puncture Site ART LINE Blood Gas Patient Temperature 98.6 Blood Gas HCO3 21 Blood Gas Base Excess -3.4 Blood Gas Oxygen Saturation 97 Arterial Blood pH 7.34 Arterial Blood Partial 41 Pressure CO2 Arterial Blood Partial 281 Pressure O2 Arterial Blood Oxygen Content 18.0 Arterial Blood 1.2 Carboxyhemoglobin Arterial Blood Methemoglobin 1.0 Blood Gas Hemoglobin 12.7 Oxygen Delivery Device VENTILATOR Blood Gas Ventilator Setting AC1/20/600/+5 Blood Gas Inspired Oxygen 100 Test 12/14/16 10:00 White Blood Count 22.9 Red Blood Count 4.05 Hemoglobin 12.8 Hematocrit 37.9 Mean Corpuscular Volume 93.7 Mean Corpuscular Hemoglobin 31.6 Mean Corpuscular Hemoglobin 33.7 Concent Red Cell Distribution Width 12.6 Platelet Count 220 Mean Platelet Volume 7.6 Neutrophils (%) (Auto) 97.1 Lymphocytes (%) (Auto) 0.8 Monocytes (%) (Auto) 1.4 Eosinophils (%) (Auto) 0.0 Basophils (%) (Auto) 0.7 Neutrophils # (Auto) 22.3 Lymphocytes # (Auto) 0.2 Monocytes # (Auto) 0.3 Eosinophils # (Auto) 0.0 Basophils # (Auto) 0.2 CBC Comment DIFF FINAL Differential Comment Sodium Level 132 Potassium Level 4.2 Chloride Level 99 Carbon Dioxide Level 26.1 Anion Gap 7 Blood Urea Nitrogen 33 Creatinine 1.04 Estimat Glomerular Filtration 72 Rate Random Glucose 235 Lactic Acid Level 2.7 Calcium Level 7.1 Protein Corrected Calcium 8.1 Phosphorus Level 3.9 Magnesium Level 2.1 Total Bilirubin 1.9 Aspartate Amino Transf 34 (AST/SGOT) Alanine Aminotransferase 55 (ALT/SGPT) Alkaline Phosphatase 87 Total Creatine Kinase 75 Troponin I 4.88 Total Protein 5.2 Albumin 2.2 Date/Time Procedure Status Source Growth 12/14/16 11:30 Gram Stain Received Sputum Endotracheal Pending 12/14/16 11:30 Sputum Culture Received Sputum Endotracheal Pending 12/14/16 10:40 Streptococcus pneumoniae Antigen (M - Final Complete Urine Catheterized Urine PRESUMPTIVE NEGATIVE FOR STREPTOCOCCU... 12/14/16 10:40 Legionella Antigen - Final Complete Urine Catheterized Urine PRESUMPTIVE NEGATIVE FOR LEGIONELLA P... 12/13/16 05:33 Aerobic Blood Culture - Preliminary Resulted Blood Peripheral Strep Anginosus/Milleri 12/13/16 05:33 Anaerobic Blood Culture - Preliminary Resulted Gram Positive Cocci Result Diagram: 12/14/16 1000 12/14/16 1000 Imaging RADIOLOGY STUDIES/FILMS REVIEWED Neck CTA 12/14/16 0000 Signed Impressions: Service Date/Time: Wednesday, December 14, 2016 04:20 - CONCLUSION: No significant stenoses in the carotids. Incidental note of bilateral pleural effusions and upper lobe emphysema. Aristeo Tellez MD Head CTA 12/14/16 0000 Signed Impressions: Service Date/Time: Wednesday, December 14, 2016 04:20 - CONCLUSION: Negative intracranial CTA. No evidence of vessel truncation. Aristeo Tellez MD Head CT 12/14/16 0000 Signed Impressions: Service Date/Time: Wednesday, December 14, 2016 14:56 - CONCLUSION: 1. There is a new 6 mm area low density in the left basal ganglia which could represent a recent area of ischemia. There is stable encephalomalacia in the right cerebellum. 2. Nonspecific punctate areas of air near the right cerebellum and left occipital region. These are of uncertain etiology but may be related to retrograde venous air. The air in the right cerebellar region is near the sinus. Since this is of uncertain etiology consider followup CT to assess for change. Davey Hernandez MD Chest X-Ray 12/14/16 0000 Signed Impressions: Service Date/Time: Wednesday, December 14, 2016 09:26 - CONCLUSION: Support apparatus in good position. Ang Vera MD FACR Chest CT 12/12/16 0000 Signed Impressions: Service Date/Time: Monday, December 12, 2016 12:13 - CONCLUSION: 1. Small bilateral pleural effusions and subsegmental consolidating airspace disease in the bases. 2. Persistent small pericardial effusion. 3. No other significant abnormality. Roman Cordero MD Pericardiocentesis 12/08/16 0815 Signed Impressions: Service Date/Time: Thursday, December 08, 2016 08:43 - CONCLUSION: Uncomplicated CT-guided pericardial centesis as above. Roman Cordero MD Assessment and Plan Assessment and Plan IMPRESSION Leukocytosis, worsening? - has (+) BC with Strep anginosus, ?endocarditis - reactive from recent arrest Recurrent atril fib?RVR, S/P ablation 11/09 Recurrent pericardial effusion, ?complication from ablation Strep anginosus sepsis, ?IE, ?complication of ablation - pericardial effusion C/S negative S/P arrest CVA Respiratory failure RECOMMENDATION Continue Zosyn and Vancomycin Repeat BC Follow C/S BP support Will adjust Abx once C/S finalized Monitor progress I will follow along with you Thank you for this consultation Keely Barth MD Dec 14, 2016 16:42
[2016-12-14] MEDS: VANCOMYCIN 1,000 MG/NS 250 ML IV SCH ×2 (16:55)
--- NOTE | 2016-12-14 18:46 | RADRPT ---
EXAM DATE/TIME: 12/14/2016 17:58 [facility] COMPARISON: CT BRAIN W/O CONTRAST, December 14, 2016, 14:56. INDICATIONS : CVA. MEDICAL HISTORY : Diabetes mellitus type 2. Carcinoma, prostate. Afib, Gerd, Pericardiacentesis. SURGICAL HISTORY : Tonsillectomy. Cardiac ablation, Left ankle sx ENCOUNTER: Initial ACUITY: 1 day PAIN SCORE: Nonresponsive. LOCATION: Bilateral cranial TECHNIQUE: Multiplanar, multisequence MRI of the brain was performed without contrast. FINDINGS: 4 x 10 mm focus of restricted diffusion seen in the abbey-thalamic region of the left basal ganglia. T here is patchy subcortical restricted diffusion , most conspicuous of the left greater than right occipital lobes but also involving the vertices of the right greater the left frontal and parietal l obes. There are several areas of her stricture diffusion involving the right side of the cerebellum m easuring up to 1 x 2 cm in size. No acute hemorrhage demonstrated. No mass, mass effect or midline shift. CONCLUSION: Numerous mostly small acute or subacute bilateral cerebral and right cerebellar infarcts as described above. No bleed, mass effect or midline shift. Davey Nicholas MD on December 14, 2016 at 18:41 Board Certified Radiologist. This report was verified electronically.
[2016-12-14] MEDS: fentaNYL 2,500 MCG/NS 250 ML IV SCH (19:03)
[2016-12-14 19:25] LABS: LACTIC ACID GHOST NOT REPORTABLE
--- NOTE | 2016-12-14 21:52 | HHI.PR ---
Subjective Remarks called to evaluate patient for witnessed seizure event and changes in EKG. this is a patient who was originally admitted for SOB and found to have a moderate pericardial effusion which was drained, and now had this morning an acute unresponsive episode followed by a pulseless VTach event requiring short run of ACLS. He was intubated. MRI tonight demonstrates multiple scattered infarcts. His EKG demonstrates what appears to be STEMI in both the interior leads and far lateral leads with reciprocal changes. Discussed case with Dr. Pool who came and evaluated patient. given new stroke, relative contra- indication for acute [facility] intervention. will plan to trend troponins, keep goal HR < 100. continue Levophed for goal map > 65 mmHg and to maintain coronary perfusion. discussed with cardiology and we agree needs to be anticoagulated so will start ASA and heparin drip. Objective Vital Signs Date Time Temp Pulse Resp B/P Pulse Ox O2 Delivery O2 Flow Rate FiO2 12/14/16 20:58 94 45 12/14/16 18:00 82 12/14/16 18:00 98 100 12/14/16 16:00 86 12/14/16 16:00 98.8 86 24 115/75 92 119/66 12/14/16 16:00 40 12/14/16 15:25 93 40 12/14/16 15:23 99 100 12/14/16 14:00 83 12/14/16 12:00 99.8 87 20 101/73 92 109/61 12/14/16 12:00 87 12/14/16 12:00 40 12/14/16 11:55 94 40 12/14/16 10:00 81 12/14/16 08:38 100 100 12/14/16 08:09 93 Nasal Cannula 4.00 12/14/16 08:00 104 29 97/73 94 12/14/16 08:00 109 12/14/16 08:00 94 Nasal Cannula 4.00 12/14/16 03:23 137 131/97 94 12/14/16 03:00 94 Nasal Cannula 4.00 12/14/16 01:00 112 12/14/16 00:00 112 12/13/16 23:00 99.1 120 20 114/86 95 12/13/16 23:00 95 Nasal Cannula 3.00 12/13/16 23:00 116 12/13/16 22:36 20 12/13/16 22:00 72 12/13/16 21:56 94 Nasal Cannula 3.00 I/O 12/13/16 12/13/16 12/13/16 12/14/16 12/14/16 12/14/16 07:00 15:00 23:00 07:00 15:00 23:00 Intake Total 720 ml 480 ml 480 ml 3058 ml Output Total 325 ml 500 ml 850 ml Balance 395 ml 480 ml -20 ml 2208 ml Intake Oral 720 ml 480 ml 480 ml IV Total 3058 ml Output Urine Total 325 ml 500 ml 700 ml Gastric Drainage Total 150 ml # Voids 5 5 4 Result Diagram: 12/14/16 1000 12/14/16 1000 Imaging Last Impressions Neck CTA 12/14/16 0000 Signed Impressions: Service Date/Time: Wednesday, December 14, 2016 04:20 - CONCLUSION: No significant stenoses in the carotids. Incidental note of bilateral pleural effusions and upper lobe emphysema. Aristeo Tellez MD Head CTA 12/14/16 0000 Signed Impressions: Service Date/Time: Wednesday, December 14, 2016 04:20 - CONCLUSION: Negative intracranial CTA. No evidence of vessel truncation. Aristeo Tellez MD Head CT 12/14/16 0000 Signed Impressions: Service Date/Time: Wednesday, December 14, 2016 14:56 - CONCLUSION: 1. There is a new 6 mm area low density in the left basal ganglia which could represent a recent area of ischemia. There is stable encephalomalacia in the right cerebellum. 2. Nonspecific punctate areas of air near the right cerebellum and left occipital region. These are of uncertain etiology but may be related to retrograde venous air. The air in the right cerebellar region is near the sinus. Since this is of uncertain etiology consider followup CT to assess for change. Davey Hernandez MD Chest X-Ray 12/14/16 0000 Signed Impressions: Service Date/Time: Wednesday, December 14, 2016 09:26 - CONCLUSION: Support apparatus in good position. 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 No bleed, mass effect or midline shift. Davey Nicholas MD Chest CT 12/12/16 0000 Signed Impressions: Service Date/Time: Monday, December 12, 2016 12:13 - CONCLUSION: 1. Small bilateral pleural effusions and subsegmental consolidating airspace disease in the bases. 2. Persistent small pericardial effusion. 3. No other significant abnormality. Roman Cordero MD Pericardiocentesis 12/08/16 0815 Signed Impressions: Service Date/Time: Thursday, December 08, 2016 08:43 - CONCLUSION: Uncomplicated CT-guided pericardial centesis as above. Roman Cordero MD Objective Remarks middle-aged male, lying in bed, intubated, unresponsive. spontaneous eye opening. otherwise no movement to deep painful stimuli on levophed. back in sinus rhythm with 1st degree avb ekg demonstrates ST elevations of II, III, aVF, V4-V6 with reciprocal changes Assessment and Plan Assessment and Plan Assessment: 66yM with multiple embolic appearing infarcts and STEMI. Active Problems: STEMI Acute embolic infarcts Plan: -- plavix -- asa -- heparin drip -- hold betablockers given blood pressure and vasopressors -- frequent neuro checks -- trend troponins -- not a [facility] intervention candidate given risk/benefit after recent acute cerebral infarct. Critical Care time: 66 minutes, exclusive of separately billable procedures. this time in addition to any previously documented critical care time on this patient. Fawad Meyer MD Dec 14, 2016 21:52
[2016-12-14] MEDS: ATORVASTATIN 40 MG TAB PO SCH (22:18)
[2016-12-14] MEDS: CHLORHEXIDINE 0.12% (ORAL KIT) 15 ML CUP MT SCH (22:19)
--- NOTE | 2016-12-14 22:58 | PD.CARD.PN ---
Subjective Subjective Remarks Call in by Dr. Meyer for abnormal EKG EKG showing ST elevation in inferior leads with reciprocal changes, sinus rhythm New CVA with +MRI/ tPA candidate NOT GIVEN Seizure Activity V Tach arrest this AM s/p intubation and ACLS Critically ill Objective Medications Current Medications Medications (Trade) Dose Ordered Sig/Michelle Route Start Time Stop Time Status Last Admin (Lipitor) 40 mg HS PO 12/07/16 21:00 12/14/16 22:18 (Robitussin Liq) 200 mg Q4H PRN PO 12/08/16 12:15 12/09/16 04:38 (Restoril) 15 mg HS PRN PO 12/08/16 18:30 12/13/16 00:31 (Cordarone) 200 mg DAILY PO 12/10/16 09:00 12/14/16 08:22 (Colchicine) 0.6 mg DAILY PO 12/11/16 09:00 12/13/16 08:27 (Imodium) 2 mg Q6H PRN PO 12/10/16 22:00 12/12/16 10:56 (Mucinex Er) 600 mg BID PO 12/11/16 21:00 12/14/16 22:18 (Phazyme Chew) 125 mg Q8HR PO 12/12/16 10:00 12/14/16 22:18 (Tylenol) 650 mg Q6H PRN PO 12/12/16 22:45 12/13/16 21:16 (Morphine Inj) 2 mg Q8H PRN IV PUSH 12/13/16 01:15 12/14/16 08:23 (Romazicon Inj) 0.2 mg Q1M PRN IV PUSH 12/13/16 06:30 (Lovenox Inj) 40 mg Q24H SQ 12/13/16 09:00 12/14/16 08:22 Lorazepam 1 mg 1 mg Q6H PRN PO 12/13/16 08:45 12/14/16 02:45 (Cardizem Inj/NS Inj) 125 ml @ 0 mls/hr TITRATE IV 12/13/16 16:00 12/14/16 06:21 Miscellaneous Information No Heparin, Warfarin, Aspir... UNSCH PRN .XX 12/14/16 05:45 12/15/16 05:44 Miscellaneous Information If patient on Metfor... UNSCH PRN .XX 12/14/16 05:45 12/16/16 05:44 Miscellaneous Information Patient in critical care unit? Ass... Q361D .XX 12/14/16 06:30 12/14/16 06:26 (Chlorhexidine 2% Cloth) 3 pack DAILY@04 TOPICAL 12/15/16 04:00 12/19/16 04:01 (Chlorhexidine 2% Cloth) 3 pack UNSCH PRN TOPICAL 12/14/16 06:30 12/19/16 06:24 Chlorhexidine Gluconate 15 ml 15 ml BID@08,20 MT 12/14/16 20:00 12/14/16 22:19 Potassium Chloride 100 ml @ 50 mls/hr Q2H PRN IV 12/14/16 09:30 (KCl 20 Meq Premix Inj) 100 ml @ 50 mls/hr Q2H PRN IV 12/14/16 09:30 Potassium Bicarb/ Potassium Chloride 50 meq 50 meq UNSCH PRN PO 12/14/16 09:30 Potassium Chloride 100 ml @ 25 mls/hr UNSCH PRN IV 12/14/16 09:30 Potassium Chloride 100 ml @ 50 mls/hr Q2H PRN IV 12/14/16 09:30 (Magnesium Sulfate Inj/NS Inj) 100 ml @ 50 mls/hr UNSCH PRN IV 12/14/16 09:30 Magnesium Oxide 800 mg 800 mg UNSCH PRN PO 12/14/16 09:30 (Magnesium Sulfate Inj/NS Inj) 100 ml @ 50 mls/hr UNSCH PRN IV 12/14/16 09:30 Potassium Phosphate 2000 mg 2,000 mg Q4H PRN PO 12/14/16 09:30 (Sodium Phosphate Inj/NS 250 ml Inj) 250 ml @ 42 mls/hr UNSCH PRN IV 12/14/16 09:30 Potassium Phosphate 2000 mg 2,000 mg UNSCH PRN PO/TUBE 12/14/16 09:30 Potassium Phosphate 30 mmol/ Sodium Chloride 260 ml @ 42 mls/hr UNSCH PRN IV 12/14/16 09:30 Sodium Chloride 1,000 ml @ 100 mls/hr Q10H IV 12/14/16 10:00 12/14/16 11:03 (Zosyn 4.5 Gm Premix) 100 ml @ 200 mls/hr Q6H IV 12/14/16 10:00 12/14/16 22:19 (D50w (Vial) Inj) 50 ml UNSCH PRN IV 12/14/16 09:45 (Glucagon Inj) 1 mg UNSCH PRN OTHER 12/14/16 09:45 (NovoLIN R SUPPLEMENTAL SCALE) 1 Q4H SQ 12/14/16 10:00 12/14/16 18:00 (Protonix Inj) 40 mg Q24H IV PUSH 12/15/16 10:00 Hydrocortisone Sodium Succinate 50 mg 50 mg Q6H IV PUSH 12/14/16 15:00 12/14/16 22:19 Fentanyl Citrate 250 ml @ 0 mls/hr TITRATE IV 12/14/16 10:30 12/14/16 19:03 Pharmacy Profile Note 0 ml @ 0 mls/hr UNSCH OTHER 12/14/16 10:45 Vasopressin 40 units/Dextrose 100 ml @ 4.5 mls/hr [id number] IV 12/14/16 10:38 (Levophed-Dextrose Drip) 250 ml @ 0 mls/hr TITRATE IV 12/14/16 11:15 12/14/16 14:40 (Brethine Inj) 1 mg UNSCH PRN SQ 12/14/16 11:15 Miscellaneous Information SPECIFIC LAB TO BE ARISTEO... ONCE ONCE .XX 12/16/16 00:45 12/16/16 00:46 (Vancomycin Inj/ NS 250 ml Inj) 250 ml @ 250 mls/hr Q12H IV 12/15/16 01:00 12/14/16 16:55 Vital Signs / I&O Vital Signs Date Time Temp Pulse Resp B/P Pulse Ox O2 Delivery O2 Flow Rate FiO2 12/14/16 20:58 94 45 12/14/16 18:00 82 12/14/16 18:00 98 100 12/14/16 16:00 86 12/14/16 16:00 98.8 86 24 115/75 92 119/66 12/14/16 16:00 40 12/14/16 15:25 93 40 12/14/16 15:23 99 100 12/14/16 14:00 83 12/14/16 12:00 99.8 87 20 101/73 92 109/61 12/14/16 12:00 87 12/14/16 12:00 40 12/14/16 11:55 94 40 12/14/16 10:00 81 12/14/16 08:38 100 100 12/14/16 08:09 93 Nasal Cannula 4.00 12/14/16 08:00 104 29 97/73 94 12/14/16 08:00 109 12/14/16 08:00 94 Nasal Cannula 4.00 12/14/16 03:23 137 131/97 94 12/14/16 03:00 94 Nasal Cannula 4.00 12/14/16 01:00 112 12/14/16 00:00 112 12/13/16 23:00 99.1 120 20 114/86 95 12/13/16 23:00 95 Nasal Cannula 3.00 12/13/16 23:00 116 I/O 12/13/16 12/13/16 12/13/16 12/14/16 12/14/16 12/14/16 06:59 14:59 22:59 06:59 14:59 22:59 Intake Total 720 ml 480 ml 480 ml 3058 ml Output Total 325 ml 500 ml 850 ml Balance 395 ml 480 ml -20 ml 2208 ml Intake Oral 720 ml 480 ml 480 ml IV Total 3058 ml Output Urine Total 325 ml 500 ml 700 ml Gastric Drainage Total 150 ml # Voids 5 5 4 Physical Exam GENERAL: Intubated, sedated SKIN: Warm and dry. HEAD: Normocephalic. EYES: No scleral icterus. No injection or drainage. NECK: Supple, trachea midline. No JVD or lymphadenopathy. CARDIOVASCULAR: Regular rate and rhythm without murmurs, gallops, or rubs. RESPIRATORY: Vented. No accessory muscle use. GASTROINTESTINAL: Abdomen soft, non-tender, nondistended. EXTREMITIES: No cyanosis, or edema. Laboratory Laboratory Tests Test 12/13/16 12/14/16 12/14/16 12/14/16 23:22 03:45 06:05 08:55 Urine Color YELLOW Urine Turbidity CLEAR Urine pH 6.5 Urine Specific [place] 1.023 Urine Protein TRACE mg/dL Urine Glucose (UA) NEG mg/dL Urine Ketones NEG mg/dL Urine Occult Blood NEG Urine Nitrite NEG Urine Bilirubin NEG Urine Urobilinogen LESS THAN 2.0 MG/DL Urine Leukocyte Esterase NEG Urine RBC 1 /hpf Urine WBC 2 /hpf Urine Mucus FEW /lpf Microscopic Urinalysis Comment CULT NOT INDICATED White Blood Count 20.3 TH/MM3 Red Blood Count 4.17 MIL/MM3 Hemoglobin 13.2 GM/DL Bedside Hemoglobin 13.3 G/DL Hematocrit 39.0 % Bedside Hematocrit 39.0 % Mean Corpuscular Volume 93.6 FL Mean Corpuscular Hemoglobin 31.7 PG Mean Corpuscular Hemoglobin 33.9 % Concent Red Cell Distribution Width 12.3 % Platelet Count 217 TH/MM3 Mean Platelet Volume 7.0 FL Neutrophils (%) (Auto) 95.4 % Lymphocytes (%) (Auto) 1.6 % Monocytes (%) (Auto) 2.0 % Eosinophils (%) (Auto) 0.0 % Basophils (%) (Auto) 1.0 % Neutrophils # (Auto) 19.3 TH/MM3 Lymphocytes # (Auto) 0.3 TH/MM3 Monocytes # (Auto) 0.4 TH/MM3 Eosinophils # (Auto) 0.0 TH/MM3 Basophils # (Auto) 0.2 TH/MM3 CBC Comment AUTO DIFF Differential Comment AUTO DIFF CONFIRMED Prothrombin Time 12.6 SEC Prothromb Time International 1.1 RATIO Ratio Activated Partial 26.9 SEC Thromboplast Time Fibrinogen 425 mg/dL Bedside Sodium 133 MMOL/L Bedside Potassium 4.6 MMOL/L Bedside Chloride 98 MMOL/L Bedside Blood Urea Nitrogen 29 MG/DL Bedside Creatinine 1.0 MG/DL Bedside Glucose 156 MG/DL Total Creatine Kinase 135 U/L Troponin I 6.02 NG/ML Blood Type B POSITIVE Antibody Screen NEGATIVE Blood Bank Comment Nasal Screen MRSA (PCR) MRSA NOT DETECTED Blood Gas Puncture Site ART LINE Blood Gas Patient Temperature 98.6 Blood Gas HCO3 21 mmol/L Blood Gas Base Excess -3.4 mmol/L Blood Gas Oxygen Saturation 97 % Arterial Blood pH 7.34 Arterial Blood Partial 41 mmHg Pressure CO2 Arterial Blood Partial 281 mmHg Pressure O2 Arterial Blood Oxygen Content 18.0 Vol % Arterial Blood 1.2 % Carboxyhemoglobin Arterial Blood Methemoglobin 1.0 % Blood Gas Hemoglobin 12.7 G/DL Oxygen Delivery Device VENTILATOR Blood Gas Ventilator Setting AC1/20/600/+5 Blood Gas Inspired Oxygen 100 % Test 12/14/16 12/14/16 12/14/16 12/14/16 10:00 17:20 20:40 21:36 White Blood Count 22.9 TH/MM3 Red Blood Count 4.05 MIL/MM3 Hemoglobin 12.8 GM/DL Hematocrit 37.9 % Mean Corpuscular Volume 93.7 FL Mean Corpuscular Hemoglobin 31.6 PG Mean Corpuscular Hemoglobin 33.7 % Concent Red Cell Distribution Width 12.6 % Platelet Count 220 TH/MM3 Mean Platelet Volume 7.6 FL Neutrophils (%) (Auto) 97.1 % Lymphocytes (%) (Auto) 0.8 % Monocytes (%) (Auto) 1.4 % Eosinophils (%) (Auto) 0.0 % Basophils (%) (Auto) 0.7 % Neutrophils # (Auto) 22.3 TH/MM3 Lymphocytes # (Auto) 0.2 TH/MM3 Monocytes # (Auto) 0.3 TH/MM3 Eosinophils # (Auto) 0.0 TH/MM3 Basophils # (Auto) 0.2 TH/MM3 CBC Comment DIFF FINAL Differential Comment Sodium Level 132 MEQ/L Potassium Level 4.2 MEQ/L Chloride Level 99 MEQ/L Carbon Dioxide Level 26.1 MEQ/L Anion Gap 7 MEQ/L Blood Urea Nitrogen 33 MG/DL Creatinine 1.04 MG/DL Estimat Glomerular Filtration 72 ML/MIN Rate Random Glucose 235 MG/DL Lactic Acid Level 2.7 mmol/L 2.7 mmol/L 3.4 mmol/L Calcium Level 7.1 MG/DL Protein Corrected Calcium 8.1 MG/DL Phosphorus Level 3.9 MG/DL Magnesium Level 2.1 MG/DL Total Bilirubin 1.9 MG/DL Aspartate Amino Transf 34 U/L (AST/SGOT) Alanine Aminotransferase 55 U/L (ALT/SGPT) Alkaline Phosphatase 87 U/L Total Creatine Kinase 75 U/L Troponin I 4.88 NG/ML 3.44 NG/ML Total Protein 5.2 GM/DL Albumin 2.2 GM/DL Imaging Last Impressions Neck CTA 12/14/16 0000 Signed Impressions: Service Date/Time: Wednesday, December 14, 2016 04:20 - CONCLUSION: No significant stenoses in the carotids. Incidental note of bilateral pleural effusions and upper lobe emphysema. Aristeo Tellez MD Head CTA 12/14/16 0000 Signed Impressions: Service Date/Time: Wednesday, December 14, 2016 04:20 - CONCLUSION: Negative intracranial CTA. No evidence of vessel truncation. Aristeo Tellez MD Head CT 12/14/16 0000 Signed Impressions: Service Date/Time: Wednesday, December 14, 2016 14:56 - CONCLUSION: 1. There is a new 6 mm area low density in the left basal ganglia which could represent a recent area of ischemia. There is stable encephalomalacia in the right cerebellum. 2. Nonspecific punctate areas of air near the right cerebellum and left occipital region. These are of uncertain etiology but may be related to retrograde venous air. The air in the right cerebellar region is near the sinus. Since this is of uncertain etiology consider followup CT to assess for change. Davey Hernandez MD Chest X-Ray 12/14/16 0000 Signed Impressions: Service Date/Time: Wednesday, December 14, 2016 09:26 - CONCLUSION: Support apparatus in good position. 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 No bleed, mass effect or midline shift. Davey Nicholas MD Chest CT 12/12/16 0000 Signed Impressions: Service Date/Time: Monday, December 12, 2016 12:13 - CONCLUSION: 1. Small bilateral pleural effusions and subsegmental consolidating airspace disease in the bases. 2. Persistent small pericardial effusion. 3. No other significant abnormality. Roman Cordero MD Pericardiocentesis 12/08/16 0815 Signed Impressions: Service Date/Time: Thursday, December 08, 2016 08:43 - CONCLUSION: Uncomplicated CT-guided pericardial centesis as above. Roman Cordero MD Assessment and Plan Problem List: (1) STEMI (ST elevation myocardial infarction) Assessment and Plan: 66 y/o M critically ill with cardiac risk factors HTN, HLD, also Afib s/p ablation on OAC. He developed a pericardial effusion (PE) in the setting of recent afib ablation. Pericardiocentesis drained 600cc of clear fluid. Hospital stay has complicated with VT arrest and CVA. He is critically ill requiring pressors. Tonight pt had an episode of seizures and repeat EKG showed STEMI in the inferior leads. Unfortunately give patient recent CVA and change of MS he is not candidate for primary PCI, thus he should be management with medications. Recommendations: - Aspirin - Plavix - Statins - Hold BB and ACEI given low BP - Heparin drip - 2Decho in AM - Wean Levophed as tolerated Case discussed with Dr. Meyer (2) COPD exacerbation (3) Tobacco abuse (4) Hypertension (5) Atrial fibrillation with RVR (6) Pericardial effusion (7) Chest pain (8) Pericardial effusion with cardiac tamponade Problem Qualifiers (1) Chest pain: Qualified Code: R07.9 - Chest pain, unspecified type Benton Gavin MD Dec 14, 2016 22:58
[2016-12-14] MEDS ORDERED: CLOPIDOGREL 75 MG TAB PO ONE (23:15)
[2016-12-14] MEDS ORDERED: HEPARIN-D5W 25,000 U/250 ML 250 ML IV SCH (23:15)
[2016-12-14] MEDS ORDERED: ASPIRIN 81 MG CHEW TAB CHEW ONE (23:15)
[2016-12-14 23:45] LABS: HEMATOCRIT 38.5 % (39.0-51.0); MEAN CELL VOLUME 93.8 FL (80.0-100.0); MEAN CORPUSCULAR HEMOGLOBIN 31.3 PG (27.0-34.0); MEAN CORPUSCULAR HGB CONC 33.4 % (32.0-36.0); PLATELET COUNT 185 TH/MM3 (150-450); RED BLOOD COUNT 4.11 MIL/MM3 (4.50-5.90); RED CELL DISTRIBUTION WIDTH 12.8 % (11.6-17.2); REVIEW FLAG FINAL
[2016-12-14 23:59] LABS: APTT (PATIENT) 32.2 SEC (24.3-30.1); INTERNATIONAL NORMALIZED RATIO 1.1 RATIO
[2016-12-15] VITALS (58 sets, daily range): BP systolic 78–111; BP diastolic 53–80; PULSE 85–145; RESP 18–20; TEMP 97.7–99.3; O2SAT 91–97
[2016-12-15] MEDS: fentaNYL 2,500 MCG/NS 250 ML IV SCH ×2 (00:35→07:41)
[2016-12-15] MEDS: NOREPINEPHRINE-DEXTROSE DRIP 250 ML IV SCH ×5 (00:37→22:21)
[2016-12-15] MEDS: INSULIN NovoLIN REGULAR SUPPLEMENTAL SCALE SQ SCH ×6 (02:00→22:00)
[2016-12-15] MEDS: HYDROCORTISONE SOD SUCCINATE 100 MG VIAL IV PUSH SCH ×4 (02:52→22:21)
[2016-12-15] MEDS: PIPERACIL-TAZO 4.5 GM PREMIX 100 ML IV SCH ×4 (02:53→22:20)
[2016-12-15] MEDS: CHLORHEXIDINE GLUCONATE 2 % 1 PACK (2 CLOTHS)(taper/protocol) TOPICAL SCH (03:06)
[2016-12-15] MEDS: MAGNESIUM SULFATE 1 GM PREMIX 100 ML IV SCH ×2 (03:56→04:59)
[2016-12-15] MEDS: RESP: IPRATROPIUM 0.5 MG/2.5 ML NEB NEB SCH ×3 (04:00→20:00)
[2016-12-15] MEDS ORDERED: AMIODARONE INJ 150 MG in DEXTROSE 5% IN WATER 100ML INJ 97 ML IV ONE ×2 (04:00)
[2016-12-15] MEDS: AMIODARONE INJ 450 MG in DEXTROSE 5% IN WATE(EXCEL) INJ 241 ML IV SCH ×4 (04:17→12:18)
[2016-12-15] MEDS: RESP: ALBUTEROL 2.5 MG/IPRATROPIUM 0.5 MG NEB (SCH) NEB ×5 (04:23→21:02)
[2016-12-15] MEDS: SODIUM CHLOR 0.9% 1000 ML INJ 1,000 ML IV SCH ×2 (04:59→16:02)
--- NOTE | 2016-12-15 05:04 | EKG ---
Date Performed: 12/14/2016 Time Performed: 21:17:26 PTAGE: 66 years EKG: --- Warning: Data quality may affect interpretation --- CONSIDER ACUTE ST ELEVATION ND Sinus rhythm with 1st degree A-V block. Inferior ST elevation, CONSIDER ACUTE INFARCT Anteroseptal ST depression is probably reciprocal to inferior infarct Lateral ST-T changes may be due to myocardial ischemia Abn ormal ECG NO PREVIOUS TRACING DOCTOR: Tommy Hill Interpretating Date/Time 12/15/2016 05:02:49
[2016-12-15] MEDS: SIMETHICONE 125 MG CHEWABLE TAB PO SCH ×3 (05:07→22:19)
[2016-12-15 06:08] LABS: AUTOMATED NEUTROPHIL # 23.1 TH/MM3 (1.8-7.7); BASOPHIL % 0.1 % (0.0-2.0); HEMATOCRIT 36.6 % (39.0-51.0); HEMO FLAGS DIFF FINAL; LYMPHOCYTE # 0.3 TH/MM3 (1.0-4.8); MEAN CELL VOLUME 93.3 FL (80.0-100.0); MEAN CORPUSCULAR HEMOGLOBIN 32.4 PG (27.0-34.0); MEAN CORPUSCULAR HGB CONC 34.7 % (32.0-36.0); MONO % 4.9 % (0.0-8.0); PLATELET COUNT 178 TH/MM3 (150-450); RED BLOOD COUNT 3.92 MIL/MM3 (4.50-5.90); RED CELL DISTRIBUTION WIDTH 12.8 % (11.6-17.2); WHITE BLOOD COUNT 24.6 TH/MM3 (4.0-11.0)
[2016-12-15 06:18] LABS: APTT (PATIENT) 39.7 SEC (24.3-30.1)
[2016-12-15 06:27] LABS: BICARBONATE 22.4 MEQ/L (21.0-32.0); CALCIUM-PROTEIN CORRECTED 8.3 MG/DL (8.5-10.1); POTASSIUM 4.3 MEQ/L (3.5-5.1); TOTAL BILIRUBIN ADULT 3.2 MG/DL (0.2-1.0)
[2016-12-15] MEDS: RESP: BUDESONIDE 0.5 MG/2 ML NEB NEB SCH ×2 (07:29→21:02)
[2016-12-15] MEDS: ENOXAPARIN SODIUM 40 MG/0.4 ML SYRINGE SQ SCH (07:33)
[2016-12-15] MEDS: CLOPIDOGREL 75 MG TAB PO SCH (08:27)
[2016-12-15] MEDS: COLCHICINE 0.6 MG TAB PO SCH ×2 (08:28→08:58)
[2016-12-15] MEDS: ASPIRIN 81 MG CHEW TAB CHEW SCH (08:29)
[2016-12-15] MEDS: guaiFENesin E.R. 600 MG TAB PO SCH ×2 (08:32→21:00)
[2016-12-15] MEDS: PANTOPRAZOLE SODIUM 40 MG VIAL IV PUSH SCH (08:32)
[2016-12-15] MEDS: AMIODARONE 200 MG TAB PO SCH (08:33)
[2016-12-15] MEDS: VASOPRESSIN INJ 40 UNITS in DEXTROSE 5% IN WATER 100ML INJ 98 ML IV SCH ×4 (08:52→17:58)
--- NOTE | 2016-12-15 09:07 | HHI.PR ---
Review/Management Daily Summary 12/[address] Steven yest after pt became unrespoionsive later in the night had a seizure spoke to RN this am and just spoke to dr Steven can start keppra, eeg, continue heparin echo not suggestive of vegetations, likely shower embolism from thrombus/a fib prognosis guarded Subjective Subjective Comments unresponsive yest then intubated and seizures Active Medications Current Medications Medications (Trade) Dose Ordered Sig/Michelle Route Start Time Stop Time Status Last Admin (Lipitor) 40 mg HS PO 12/07/16 21:00 12/14/16 22:18 (Robitussin Liq) 200 mg Q4H PRN PO 12/08/16 12:15 12/09/16 04:38 (Cordarone) 200 mg DAILY PO 12/10/16 09:00 12/14/16 08:22 (Colchicine) 0.6 mg DAILY PO 12/11/16 09:00 12/15/16 08:28 (Imodium) 2 mg Q6H PRN PO 12/10/16 22:00 12/12/16 10:56 (Mucinex Er) 600 mg BID PO 12/11/16 21:00 12/14/16 22:18 (Phazyme Chew) 125 mg Q8HR PO 12/12/16 10:00 12/15/16 05:07 (Tylenol) 650 mg Q6H PRN PO 12/12/16 22:45 12/13/16 21:16 (Morphine Inj) 2 mg Q8H PRN IV PUSH 12/13/16 01:15 12/14/16 08:23 (Romazicon Inj) 0.2 mg Q1M PRN IV PUSH 12/13/16 06:30 (Lovenox Inj) 40 mg Q24H SQ 12/13/16 09:00 12/14/16 08:22 Lorazepam 1 mg 1 mg Q6H PRN PO 12/13/16 08:45 12/14/16 02:45 (Cardizem Inj/NS Inj) 125 ml @ 0 mls/hr TITRATE IV 12/13/16 16:00 12/14/16 06:21 Miscellaneous Information If patient on Metfor... UNSCH PRN .XX 12/14/16 05:45 12/16/16 05:44 Miscellaneous Information Patient in critical care unit? Ass... Q361D .XX 12/14/16 06:30 12/14/16 06:26 (Chlorhexidine 2% Cloth) 3 pack DAILY@04 TOPICAL 12/15/16 04:00 12/19/16 04:01 12/15/16 03:06 (Chlorhexidine 2% Cloth) 3 pack UNSCH PRN TOPICAL 12/14/16 06:30 12/19/16 06:24 Chlorhexidine Gluconate 15 ml 15 ml BID@08,20 MT 12/14/16 20:00 12/14/16 22:19 Potassium Chloride 100 ml @ 50 mls/hr Q2H PRN IV 12/14/16 09:30 (KCl 20 Meq Premix Inj) 100 ml @ 50 mls/hr Q2H PRN IV 12/14/16 09:30 Potassium Bicarb/ Potassium Chloride 50 meq 50 meq UNSCH PRN PO 12/14/16 09:30 Potassium Chloride 100 ml @ 25 mls/hr UNSCH PRN IV 12/14/16 09:30 Potassium Chloride 100 ml @ 50 mls/hr Q2H PRN IV 12/14/16 09:30 (Magnesium Sulfate Inj/NS Inj) 100 ml @ 50 mls/hr UNSCH PRN IV 12/14/16 09:30 Magnesium Oxide 800 mg 800 mg UNSCH PRN PO 12/14/16 09:30 (Magnesium Sulfate Inj/NS Inj) 100 ml @ 50 mls/hr UNSCH PRN IV 12/14/16 09:30 Potassium Phosphate 2000 mg 2,000 mg Q4H PRN PO 12/14/16 09:30 (Sodium Phosphate Inj/NS 250 ml Inj) 250 ml @ 42 mls/hr UNSCH PRN IV 12/14/16 09:30 Potassium Phosphate 2000 mg 2,000 mg UNSCH PRN PO/TUBE 12/14/16 09:30 Potassium Phosphate 30 mmol/ Sodium Chloride 260 ml @ 42 mls/hr UNSCH PRN IV 12/14/16 09:30 Sodium Chloride 1,000 ml @ 100 mls/hr Q10H IV 12/14/16 10:00 12/15/16 04:59 (Zosyn 4.5 Gm Premix) 100 ml @ 200 mls/hr Q6H IV 12/14/16 10:00 12/15/16 08:27 (D50w (Vial) Inj) 50 ml UNSCH PRN IV 12/14/16 09:45 (Glucagon Inj) 1 mg UNSCH PRN OTHER 12/14/16 09:45 (NovoLIN R SUPPLEMENTAL SCALE) 1 Q4H SQ 12/14/16 10:00 12/15/16 05:07 (Protonix Inj) 40 mg Q24H IV PUSH 12/15/16 10:00 12/15/16 08:32 Hydrocortisone Sodium Succinate 50 mg 50 mg Q6H IV PUSH 12/14/16 15:00 12/15/16 08:31 Fentanyl Citrate 250 ml @ 0 mls/hr TITRATE IV 12/14/16 10:30 12/15/16 07:41 Pharmacy Profile Note 0 ml @ 0 mls/hr UNSCH OTHER 12/14/16 10:45 Vasopressin 40 units/Dextrose 100 ml @ 4.5 mls/hr [id number] IV 12/14/16 10:38 (Levophed-Dextrose Drip) 250 ml @ 0 mls/hr TITRATE IV 12/14/16 11:15 12/15/16 05:07 (Brethine Inj) 1 mg UNSCH PRN SQ 12/14/16 11:15 Miscellaneous Information SPECIFIC LAB TO BE ARISTEO... ONCE ONCE .XX 12/16/16 00:45 12/16/16 00:46 (Vancomycin Inj/ NS 250 ml Inj) 250 ml @ 250 mls/hr Q12H IV 12/15/16 01:00 12/14/16 16:55 Aspirin 324 mg 324 mg DAILY CHEW 12/15/16 09:00 12/15/16 08:29 (Heparin-D5W Inj) 250 ml @ 0 mls/hr TITRATE IV 12/14/16 23:15 12/14/16 23:40 Clopidogrel Bisulfate 75 mg 75 mg DAILY PO 12/15/16 09:00 12/15/16 08:27 (Cordarone Inj/ D5W ([place]) Inj) 250 ml @ 0 mls/hr CONTINUOUS IV 12/15/16 04:00 12/15/16 04:17 Allergies Allergies Coded Allergies Monosodium Glutamate (Verified Allergy, Intermediate, Hives, 12/02/16) Exam I&O / VS 12/14/16 12/14/16 12/15/16 14:59 22:59 06:59 Intake Total 3058 ml 1570 ml 1836 ml Output Total 850 ml 200 ml 275 ml Balance 2208 ml 1370 ml 1561 ml IV Total 3058 ml 1570 ml 1736 ml Other 100 ml Output Urine Total 700 ml 200 ml 175 ml Gastric Drainage Total 150 ml 100 ml Vital Signs Date Time Temp Pulse Resp B/P Pulse Ox O2 Delivery O2 Flow Rate FiO2 12/15/16 07:30 91 45 12/15/16 06:00 131 12/15/16 04:23 92 45 12/15/16 04:00 131 12/15/16 04:00 99.3 131 20 83/68 95 92/60 12/15/16 04:00 45 12/15/16 02:00 85 12/15/16 01:06 95 40 12/15/16 00:00 99.3 87 20 94/62 94 102/63 12/15/16 00:00 45 12/15/16 00:00 87 12/14/16 22:00 108 12/14/16 21:10 90 12/14/16 20:58 94 45 12/14/16 20:00 92 Mechanical Ventilator 45 12/14/16 20:00 45 12/14/16 20:00 83 12/14/16 20:00 97.6 83 104/73 92 109/65 12/14/16 18:00 82 12/14/16 18:00 98 100 12/14/16 16:00 86 12/14/16 16:00 98.8 86 24 115/75 92 119/66 12/14/16 16:00 40 12/14/16 15:25 93 40 12/14/16 15:23 99 100 12/14/16 14:00 83 12/14/16 12:00 99.8 87 20 101/73 92 109/61 12/14/16 12:00 87 12/14/16 12:00 40 12/14/16 11:55 94 40 12/14/16 10:00 81 Objective Radiology Results Last 48 hours Impressions Neck CTA 12/14/16 0000 Signed Impressions: Service Date/Time: Wednesday, December 14, 2016 04:20 - CONCLUSION: No significant stenoses in the carotids. Incidental note of bilateral pleural effusions and upper lobe emphysema. Aristeo Tellez MD Head CTA 12/14/16 0000 Signed Impressions: Service Date/Time: Wednesday, December 14, 2016 04:20 - CONCLUSION: Negative intracranial CTA. No evidence of vessel truncation. Aristeo Tellez MD Head CT 12/14/16 0000 Signed Impressions: Service Date/Time: Wednesday, December 14, 2016 14:56 - CONCLUSION: 1. There is a new 6 mm area low density in the left basal ganglia which could represent a recent area of ischemia. There is stable encephalomalacia in the right cerebellum. 2. Nonspecific punctate areas of air near the right cerebellum and left occipital region. These are of uncertain etiology but may be related to retrograde venous air. The air in the right cerebellar region is near the sinus. Since this is of uncertain etiology consider followup CT to assess for change. Davey Hernandez MD Head CT 12/14/16 0000 Signed Impressions: Service Date/Time: Wednesday, December 14, 2016 03:54 - CONCLUSION: Negative noncontrast CT brain. Aristeo Tellez MD Chest X-Ray 12/14/16 0000 Signed Impressions: Service Date/Time: Wednesday, December 14, 2016 09:26 - CONCLUSION: Support apparatus in good position. 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 No bleed, mass effect or midline shift. Davey Nicholas MD Micro and Labs Laboratory Tests Test 12/14/16 12/14/16 12/14/16 12/14/16 10:00 17:20 20:40 21:36 White Blood Count 22.9 Red Blood Count 4.05 Hemoglobin 12.8 Hematocrit 37.9 Mean Corpuscular Volume 93.7 Mean Corpuscular Hemoglobin 31.6 Mean Corpuscular Hemoglobin 33.7 Concent Red Cell Distribution Width 12.6 Platelet Count 220 Mean Platelet Volume 7.6 Neutrophils (%) (Auto) 97.1 Lymphocytes (%) (Auto) 0.8 Monocytes (%) (Auto) 1.4 Eosinophils (%) (Auto) 0.0 Basophils (%) (Auto) 0.7 Neutrophils # (Auto) 22.3 Lymphocytes # (Auto) 0.2 Monocytes # (Auto) 0.3 Eosinophils # (Auto) 0.0 Basophils # (Auto) 0.2 CBC Comment DIFF FINAL Differential Comment Sodium Level 132 Potassium Level 4.2 Chloride Level 99 Carbon Dioxide Level 26.1 Anion Gap 7 Blood Urea Nitrogen 33 Creatinine 1.04 Estimat Glomerular Filtration 72 Rate Random Glucose 235 Lactic Acid Level 2.7 2.7 3.4 Calcium Level 7.1 Protein Corrected Calcium 8.1 Phosphorus Level 3.9 Magnesium Level 2.1 Total Bilirubin 1.9 Aspartate Amino Transf 34 (AST/SGOT) Alanine Aminotransferase 55 (ALT/SGPT) Alkaline Phosphatase 87 Total Creatine Kinase 75 Troponin I 4.88 3.44 Total Protein 5.2 Albumin 2.2 Test 12/14/16 12/15/16 23:18 05:30 White Blood Count 26.0 24.6 Red Blood Count 4.11 3.92 Hemoglobin 12.9 12.7 Hematocrit 38.5 36.6 Mean Corpuscular Volume 93.8 93.3 Mean Corpuscular Hemoglobin 31.3 32.4 Mean Corpuscular Hemoglobin 33.4 34.7 Concent Red Cell Distribution Width 12.8 12.8 Platelet Count 185 178 Mean Platelet Volume 8.2 8.7 Prothrombin Time 12.0 Prothromb Time International 1.1 Ratio Activated Partial 32.2 39.7 Thromboplast Time Neutrophils (%) (Auto) 94.0 Lymphocytes (%) (Auto) 1.0 Monocytes (%) (Auto) 4.9 Eosinophils (%) (Auto) 0.0 Basophils (%) (Auto) 0.1 Neutrophils # (Auto) 23.1 Lymphocytes # (Auto) 0.3 Monocytes # (Auto) 1.2 Eosinophils # (Auto) 0.0 Basophils # (Auto) 0.0 CBC Comment DIFF FINAL Differential Comment Sodium Level 131 Potassium Level 4.3 Chloride Level 99 Carbon Dioxide Level 22.4 Anion Gap 10 Blood Urea Nitrogen 46 Creatinine 1.54 Estimat Glomerular Filtration 46 Rate Random Glucose 229 Calcium Level 7.4 Protein Corrected Calcium 8.3 Total Bilirubin 3.2 Aspartate Amino Transf 48 (AST/SGOT) Alanine Aminotransferase 44 (ALT/SGPT) Alkaline Phosphatase 75 Total Protein 5.4 Albumin 1.9 Date/Time Procedure Status Source Growth 12/15/16 06:09 Aerobic Blood Culture Received Blood Peripheral Pending 12/15/16 06:09 Anaerobic Blood Culture Received Blood Peripheral Pending 12/14/16 11:30 Gram Stain Received Sputum Endotracheal Pending 12/14/16 11:30 Sputum Culture Received Sputum Endotracheal Pending 12/14/16 10:40 Streptococcus pneumoniae Antigen (M - Final Complete Urine Catheterized Urine PRESUMPTIVE NEGATIVE FOR STREPTOCOCCU... 12/14/16 10:40 Legionella Antigen - Final Complete Urine Catheterized Urine PRESUMPTIVE NEGATIVE FOR LEGIONELLA P... 12/13/16 05:33 Aerobic Blood Culture - Preliminary Resulted Blood Peripheral Strep Anginosus/Milleri 12/13/16 05:33 Anaerobic Blood Culture - Preliminary Resulted Gram Positive Cocci Elizabeth Andres MD Dec 15, 2016 09:07
--- NOTE | 2016-12-15 09:12 | HHI.CCPN ---
Subjective Remarks/Hospital Course The patient is a 66-year-old male with past medical history of chronic atrial fibrillation on Eliquis at home with multiple ablations in the past, COPD, diabetes mellitus, hypertension and gastroesophageal reflux disease. He was admitted on December [address] Mcdaniel's service for chest pain associated with shortness of breath and dyspepsia. He had chest x-ray on arrival which showed a right base infiltrate and possibility of pericardial effusion. He underwent CT-guided pericardiocentesis on December 08 with removal of 600 mL of pericardial fluid. CT scan of the chest was obtained on December 12 which showed small bilateral pleural effusion and consolidating airspace disease in the bases, in addition to persistent small pericardial effusion. No other significant abnormalities noted. During his hospital course he had an echocardiogram which showed LV systolic function low normal with EF of 50-55% and moderate pericardial effusion. Overnight the patient had acute neurologic Changes. Stroke alert was called as the patient was found to have left-sided hemiparesis and neurology service was consulted. The patient was seen by Dr. Andres and the patient was transferred from [facility] to the [facility] [place]. The patient initially was scheduled to undergo TPA, however, that was placed on hold as his neurologic status was improving. In addition he had a recent pericardial drainage. The patient was on Cardizem drip overnight at 15 mg an hour for atrial fibrillation with RVR and he was on 4 liters nasal cannula. However, the patient suddenly became unresponsive with agonal breathing, hypoxic with saturation in the 60s and he was found to be in V-tach arrest. He received one round of epi bicarb and was shocked x1 with 200 joules. The patient was intubated by myself and placed on full mechanical ventilation. ABG post intubation showed a pH of 7.34, CO2 41, pAO2 281, bicarb 21, saturation of 97% on assist control ventilation rate of 20, tidal volume 600, PEEP of and 100% FIO2. His labs from this morning showed an increase of troponin from 0.02 on December 12 to 6.02 this morning. From a neuro standpoint he had a stat CT scan of the brain earlier this morning which did not show any evidence of acute intracranial process. In addition a CTA of the neck showed no significant stenosis in the carotids and CT of the brain was negative as well. When doing the code the patient became hypotensive and was started on Levophed and is currently sedated with fentanyl. 12/15 Patient remains intubated and sedated Levophed down 12 mics. He was given Amio bolus and placed on Amio drip last night. MRI brain showed numerous small acute or subacute bilateral cerebral and right cerebellar infarcts, no masses or hemorrhage. Patient had seizure last night and received Ativan. He was placed on Heparin drip. Objective Vital Signs Date Time Temp Pulse Resp B/P Pulse Ox O2 Delivery O2 Flow Rate FiO2 12/15/16 07:30 91 45 12/15/16 06:00 131 12/15/16 04:00 99.3 20 83/68 92/60 12/14/16 20:00 Mechanical Ventilator 12/14/16 08:09 4.00 Intake and Output 12/14/16 12/14/16 12/15/16 08:00 16:00 00:00 Intake Total 480 ml 3058 ml 1570 ml Output Total 500 ml 850 ml 200 ml Balance -20 ml 2208 ml 1370 ml Result Diagram: 12/15/16 0530 12/15/16 0530 Other Results Laboratory Tests Test 12/14/16 12/14/16 12/14/16 12/14/16 10:00 17:20 20:40 21:36 White Blood Count 22.9 TH/MM3 Red Blood Count 4.05 MIL/MM3 Hemoglobin 12.8 GM/DL Hematocrit 37.9 % Mean Corpuscular Volume 93.7 FL Mean Corpuscular Hemoglobin 31.6 PG Mean Corpuscular Hemoglobin 33.7 % Concent Red Cell Distribution Width 12.6 % Platelet Count 220 TH/MM3 Mean Platelet Volume 7.6 FL Neutrophils (%) (Auto) 97.1 % Lymphocytes (%) (Auto) 0.8 % Monocytes (%) (Auto) 1.4 % Eosinophils (%) (Auto) 0.0 % Basophils (%) (Auto) 0.7 % Neutrophils # (Auto) 22.3 TH/MM3 Lymphocytes # (Auto) 0.2 TH/MM3 Monocytes # (Auto) 0.3 TH/MM3 Eosinophils # (Auto) 0.0 TH/MM3 Basophils # (Auto) 0.2 TH/MM3 CBC Comment DIFF FINAL Differential Comment Sodium Level 132 MEQ/L Potassium Level 4.2 MEQ/L Chloride Level 99 MEQ/L Carbon Dioxide Level 26.1 MEQ/L Anion Gap 7 MEQ/L Blood Urea Nitrogen 33 MG/DL Creatinine 1.04 MG/DL Estimat Glomerular Filtration 72 ML/MIN Rate Random Glucose 235 MG/DL Lactic Acid Level 2.7 mmol/L 2.7 mmol/L 3.4 mmol/L Calcium Level 7.1 MG/DL Protein Corrected Calcium 8.1 MG/DL Phosphorus Level 3.9 MG/DL Magnesium Level 2.1 MG/DL Total Bilirubin 1.9 MG/DL Aspartate Amino Transf 34 U/L (AST/SGOT) Alanine Aminotransferase 55 U/L (ALT/SGPT) Alkaline Phosphatase 87 U/L Total Creatine Kinase 75 U/L Troponin I 4.88 NG/ML 3.44 NG/ML Total Protein 5.2 GM/DL Albumin 2.2 GM/DL Test 12/14/16 12/15/16 23:18 05:30 White Blood Count 26.0 TH/MM3 24.6 TH/MM3 Red Blood Count 4.11 MIL/MM3 3.92 MIL/MM3 Hemoglobin 12.9 GM/DL 12.7 GM/DL Hematocrit 38.5 % 36.6 % Mean Corpuscular Volume 93.8 FL 93.3 FL Mean Corpuscular Hemoglobin 31.3 PG 32.4 PG Mean Corpuscular Hemoglobin 33.4 % 34.7 % Concent Red Cell Distribution Width 12.8 % 12.8 % Platelet Count 185 TH/MM3 178 TH/MM3 Mean Platelet Volume 8.2 FL 8.7 FL Prothrombin Time 12.0 SEC Prothromb Time International 1.1 RATIO Ratio Activated Partial 32.2 SEC 39.7 SEC Thromboplast Time Neutrophils (%) (Auto) 94.0 % Lymphocytes (%) (Auto) 1.0 % Monocytes (%) (Auto) 4.9 % Eosinophils (%) (Auto) 0.0 % Basophils (%) (Auto) 0.1 % Neutrophils # (Auto) 23.1 TH/MM3 Lymphocytes # (Auto) 0.3 TH/MM3 Monocytes # (Auto) 1.2 TH/MM3 Eosinophils # (Auto) 0.0 TH/MM3 Basophils # (Auto) 0.0 TH/MM3 CBC Comment DIFF FINAL Differential Comment Sodium Level 131 MEQ/L Potassium Level 4.3 MEQ/L Chloride Level 99 MEQ/L Carbon Dioxide Level 22.4 MEQ/L Anion Gap 10 MEQ/L Blood Urea Nitrogen 46 MG/DL Creatinine 1.54 MG/DL Estimat Glomerular Filtration 46 ML/MIN Rate Random Glucose 229 MG/DL Calcium Level 7.4 MG/DL Protein Corrected Calcium 8.3 MG/DL Total Bilirubin 3.2 MG/DL Aspartate Amino Transf 48 U/L (AST/SGOT) Alanine Aminotransferase 44 U/L (ALT/SGPT) Alkaline Phosphatase 75 U/L Total Protein 5.4 GM/DL Albumin 1.9 GM/DL Imaging Last Impressions Neck CTA 12/14/16 0000 Signed Impressions: Service Date/Time: Wednesday, December 14, 2016 04:20 - CONCLUSION: No significant stenoses in the carotids. Incidental note of bilateral pleural effusions and upper lobe emphysema. Aristeo Tellez MD Head CTA 12/14/16 0000 Signed Impressions: Service Date/Time: Wednesday, December 14, 2016 04:20 - CONCLUSION: Negative intracranial CTA. No evidence of vessel truncation. Aristeo Tellez MD Head CT 12/14/16 0000 Signed Impressions: Service Date/Time: Wednesday, December 14, 2016 14:56 - CONCLUSION: 1. There is a new 6 mm area low density in the left basal ganglia which could represent a recent area of ischemia. There is stable encephalomalacia in the right cerebellum. 2. Nonspecific punctate areas of air near the right cerebellum and left occipital region. These are of uncertain etiology but may be related to retrograde venous air. The air in the right cerebellar region is near the sinus. Since this is of uncertain etiology consider followup CT to assess for change. Davey Hernandez MD Chest X-Ray 12/14/16 0000 Signed Impressions: Service Date/Time: Wednesday, December 14, 2016 09:26 - CONCLUSION: Support apparatus in good position. 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 No bleed, mass effect or midline shift. Davey Nicholas MD Chest CT 12/12/16 0000 Signed Impressions: Service Date/Time: Monday, December 12, 2016 12:13 - CONCLUSION: 1. Small bilateral pleural effusions and subsegmental consolidating airspace disease in the bases. 2. Persistent small pericardial effusion. 3. No other significant abnormality. Roman Cordero MD Pericardiocentesis 12/08/16 0815 Signed Impressions: Service Date/Time: Thursday, December 08, 2016 08:43 - CONCLUSION: Uncomplicated CT-guided pericardial centesis as above. Roman Cordero MD Objective Remarks GENERAL: Patient is 66 yo critically ill intubated, sedated and on Levophed SKIN: Warm and dry. HEAD: Normocephalic. EYES: No scleral icterus. No injection or drainage. NECK: Supple, trachea midline. No JVD or lymphadenopathy. Orally intubated CARDIOVASCULAR: Tachycardic without murmurs, gallops, or rubs. RESPIRATORY: Breath sounds equal bilaterally. No accessory muscle use. GASTROINTESTINAL: Abdomen soft, non-tender, nondistended. MUSCULOSKELETAL: No cyanosis, or edema. Neuro: Sedated, intubated A/P Assessment and Plan 1. Status post V-tach arrest. 2. S/p CT-guided pericardiocentesis with removal of 600 mL pericardial fluid on December 08. 3. Atrial fibrillation with RVR 4. ACS with elevated troponins. 5. Acute CVA 6. Gram positive bacteremia 7. Septic shock 8. COPD. 9. Diabetes mellitus. 10. Leukocytosis. 11. History of prostate cancer. Plan Neuro: On Fentanyl drip for sedation. Monitor neuro status. 12/14: MRI brain: Numerous mostly small acute or subacute bilateral cerebral and right cerebellar infarcts. No bleed, mass effect or midline shift CT brain: 6 mm area low density in the left basal ganglia which could represent a recent area of ischemia. There is stable encephalomalacia in the right cerebellum. . Nonspecific punctate areas of air near the right cerebellum and left occipital region CTA head, CTA neck: negative Check EEG today, place on Keppra 500mg IV Q12, Ativan PRN for seizures Discussed with Dr. Andres and Dr. Beth regarding continuation of Heparin drip given risk of hemorrhagic conversion is high will continue with full anticoagulation for ow now as it is likely embolic stroke Pulm: Continue with vent support and maintain sats > 92%. Bronchodilators, ICU vent bundle. CV: Wean off Levophed, monitor HR and BP maintain MAP > 65 mmHg. On stress dose steroids-50mg Q6, serial lactic acid monitoring s/p pericardiocentesis on 12/08 with 600 mL of pericardial fluid. Repeat echo 12/14: mod pericardial effusion with no pre tamponade physiology Echo 12/07: EF 50-55% Continue with ASA, Plavix, Lipitor, Heparin and Amio drips. Cards is following- Discussed with Dr. Beth. Might need YOANDY to r/o endocarditis : Monitor renal function, I&O's and place on electrolyte replacement protocol. NS at 75 mL an hour. GI: On Protonix 40 mg IV daily for GI prophylaxis. Start tube feeds- Glucerna 1.5with goal rate 45ml/hr ID: Continue abx (Vanco, Zosyn) ID is following. Monitor for signs of infections ( Fever, WBC) 12/13 BC: GPC, strep Anginosus Follow up on Blood and sputum cx from 12/14 Strep pneumonia nad Legionella urinary Ag negative 12/14 Heme: Monitor CBC and coags- patient is on Heparin drip. Endo: SSI with Accu-Chek q. 4-hour for glycemic control. GI prophylaxis with Protonix 40 mg IV daily and DVT prophylaxis with SCDs, Heparin drip Consult palliative care to asses with goals of care Lines: Right IJ CVP, Right femoral Art line placed 12/14 Patent is critically ill with resp failure, ACS, Atrial fib, septic shock, bacteremia and multiple ischemic infracts on MRI brain. CCT 30 mins Ann-Marie Tejada MD Dec 15, 2016 09:12
[2016-12-15] MEDS: levETIRAcetam INJ 500 MG in SODIUM CHLORIDE 0.9% INJ 100 ML IV SCH ×2 (09:49→22:20)
[2016-12-15] MEDS: CHLORHEXIDINE 0.12% (ORAL KIT) 15 ML CUP MT SCH ×2 (09:49→22:27)
--- NOTE | 2016-12-15 10:19 | PD.CARD.PN ---
Subjective Subjective Remarks Events over past 24 hours reviewed Currently hemodynamically stable on Levophed Objective Medications Current Medications Medications (Trade) Dose Ordered Sig/Michelle Route Start Time Stop Time Status Last Admin (Lipitor) 40 mg HS PO 12/07/16 21:00 12/14/16 22:18 (Robitussin Liq) 200 mg Q4H PRN PO 12/08/16 12:15 12/09/16 04:38 (Cordarone) 200 mg DAILY PO 12/10/16 09:00 12/14/16 08:22 (Colchicine) 0.6 mg DAILY PO 12/11/16 09:00 12/15/16 08:58 (Imodium) 2 mg Q6H PRN PO 12/10/16 22:00 12/12/16 10:56 (Mucinex Er) 600 mg BID PO 12/11/16 21:00 12/14/16 22:18 (Phazyme Chew) 125 mg Q8HR PO 12/12/16 10:00 12/15/16 05:07 (Tylenol) 650 mg Q6H PRN PO 12/12/16 22:45 12/13/16 21:16 (Morphine Inj) 2 mg Q8H PRN IV PUSH 12/13/16 01:15 12/14/16 08:23 (Romazicon Inj) 0.2 mg Q1M PRN IV PUSH 12/13/16 06:30 (Lovenox Inj) 40 mg Q24H SQ 12/13/16 09:00 12/14/16 08:22 Lorazepam 1 mg 1 mg Q6H PRN PO 12/13/16 08:45 12/14/16 02:45 (Cardizem Inj/NS Inj) 125 ml @ 0 mls/hr TITRATE IV 12/13/16 16:00 12/14/16 06:21 Miscellaneous Information If patient on Metfor... UNSCH PRN .XX 12/14/16 05:45 12/16/16 05:44 Miscellaneous Information Patient in critical care unit? Ass... Q361D .XX 12/14/16 06:30 12/14/16 06:26 (Chlorhexidine 2% Cloth) 3 pack DAILY@04 TOPICAL 12/15/16 04:00 12/19/16 04:01 12/15/16 03:06 (Chlorhexidine 2% Cloth) 3 pack UNSCH PRN TOPICAL 12/14/16 06:30 12/19/16 06:24 Chlorhexidine Gluconate 15 ml 15 ml BID@08,20 MT 12/14/16 20:00 12/15/16 09:49 Potassium Chloride 100 ml @ 50 mls/hr Q2H PRN IV 12/14/16 09:30 (KCl 20 Meq Premix Inj) 100 ml @ 50 mls/hr Q2H PRN IV 12/14/16 09:30 Potassium Bicarb/ Potassium Chloride 50 meq 50 meq UNSCH PRN PO 12/14/16 09:30 Potassium Chloride 100 ml @ 25 mls/hr UNSCH PRN IV 12/14/16 09:30 Potassium Chloride 100 ml @ 50 mls/hr Q2H PRN IV 12/14/16 09:30 (Magnesium Sulfate Inj/NS Inj) 100 ml @ 50 mls/hr UNSCH PRN IV 12/14/16 09:30 Magnesium Oxide 800 mg 800 mg UNSCH PRN PO 12/14/16 09:30 (Magnesium Sulfate Inj/NS Inj) 100 ml @ 50 mls/hr UNSCH PRN IV 12/14/16 09:30 Potassium Phosphate 2000 mg 2,000 mg Q4H PRN PO 12/14/16 09:30 (Sodium Phosphate Inj/NS 250 ml Inj) 250 ml @ 42 mls/hr UNSCH PRN IV 12/14/16 09:30 Potassium Phosphate 2000 mg 2,000 mg UNSCH PRN PO/TUBE 12/14/16 09:30 Potassium Phosphate 30 mmol/ Sodium Chloride 260 ml @ 42 mls/hr UNSCH PRN IV 12/14/16 09:30 Sodium Chloride 1,000 ml @ 100 mls/hr Q10H IV 12/14/16 10:00 12/15/16 04:59 (Zosyn 4.5 Gm Premix) 100 ml @ 200 mls/hr Q6H IV 12/14/16 10:00 12/15/16 08:27 (D50w (Vial) Inj) 50 ml UNSCH PRN IV 12/14/16 09:45 (Glucagon Inj) 1 mg UNSCH PRN OTHER 12/14/16 09:45 (NovoLIN R SUPPLEMENTAL SCALE) 1 Q4H SQ 12/14/16 10:00 12/15/16 05:07 (Protonix Inj) 40 mg Q24H IV PUSH 12/15/16 10:00 12/15/16 08:32 Hydrocortisone Sodium Succinate 50 mg 50 mg Q6H IV PUSH 12/14/16 15:00 12/15/16 08:31 Fentanyl Citrate 250 ml @ 0 mls/hr TITRATE IV 12/14/16 10:30 12/15/16 07:41 Pharmacy Profile Note 0 ml @ 0 mls/hr UNSCH OTHER 12/14/16 10:45 Vasopressin 40 units/Dextrose 100 ml @ 4.5 mls/hr [id number] IV 12/14/16 10:38 (Levophed-Dextrose Drip) 250 ml @ 0 mls/hr TITRATE IV 12/14/16 11:15 12/15/16 05:07 (Brethine Inj) 1 mg UNSCH PRN SQ 12/14/16 11:15 Miscellaneous Information SPECIFIC LAB TO BE ARISTEO... ONCE ONCE .XX 12/16/16 00:45 12/16/16 00:46 (Vancomycin Inj/ NS 250 ml Inj) 250 ml @ 250 mls/hr Q12H IV 12/15/16 01:00 12/14/16 16:55 Aspirin 324 mg 324 mg DAILY CHEW 12/15/16 09:00 12/15/16 08:29 (Heparin-D5W Inj) 250 ml @ 0 mls/hr TITRATE IV 12/14/16 23:15 12/14/16 23:40 Clopidogrel Bisulfate 75 mg 75 mg DAILY PO 12/15/16 09:00 12/15/16 08:27 Amiodarone HCl 450 mg/Dextrose 250 ml @ 0 mls/hr CONTINUOUS IV 12/15/16 04:00 12/15/16 04:17 (Keppra Inj/NS Inj) 105 ml @ 420 mls/hr Q12H IV 12/15/16 10:00 12/15/16 09:49 Vital Signs / I&O Vital Signs Date Time Temp Pulse Resp B/P Pulse Ox O2 Delivery O2 Flow Rate FiO2 12/15/16 07:30 91 45 12/15/16 06:00 131 12/15/16 04:23 92 45 12/15/16 04:00 131 12/15/16 04:00 99.3 131 20 83/68 95 92/60 8/15/17 04:00 45 12/15/16 02:00 85 12/15/16 01:06 95 40 12/15/16 00:00 99.3 87 20 94/62 94 102/63 12/15/16 00:00 45 12/15/16 00:00 87 12/14/16 22:00 108 12/14/16 21:10 90 12/14/16 20:58 94 45 12/14/16 20:00 92 Mechanical Ventilator 45 12/14/16 20:00 45 12/14/16 20:00 83 12/14/16 20:00 97.6 83 104/73 92 109/65 12/14/16 18:00 82 12/14/16 18:00 98 100 12/14/16 16:00 86 12/14/16 16:00 98.8 86 24 115/75 92 119/66 12/14/16 16:00 40 12/14/16 15:25 93 40 12/14/16 15:23 99 100 12/14/16 14:00 83 12/14/16 12:00 99.8 87 20 101/73 92 109/61 12/14/16 12:00 87 12/14/16 12:00 40 12/14/16 11:55 94 40 I/O 12/14/16 12/14/16 12/14/16 12/15/16 12/15/16 12/15/16 07:00 15:00 23:00 07:00 15:00 23:00 Intake Total 480 ml 3058 ml 1570 ml 1836 ml Output Total 500 ml 850 ml 200 ml 275 ml Balance -20 ml 2208 ml 1370 ml 1561 ml Intake Oral 480 ml IV Total 3058 ml 1570 ml 1736 ml Other 100 ml Output Urine Total 500 ml 700 ml 200 ml 175 ml Gastric Drainage Total 150 ml 100 ml # Voids 4 Physical Exam GENERAL: Intubated SKIN: Warm and dry. HEAD: Atraumatic. Normocephalic. EYES: Pupils equal and round. No scleral icterus. No injection or drainage. ENT: No nasal bleeding or discharge. Mucous membranes pink and moist. NECK: Trachea midline. No JVD. CARDIOVASCULAR: Tachycardia RESPIRATORY: No accessory muscle use. Decreased breath sounds bilaterally GASTROINTESTINAL: Abdomen soft, non-tender, nondistended. Hepatic and splenic margins not palpable. MUSCULOSKELETAL: Extremities without clubbing, cyanosis, or edema. No obvious deformities. NEUROLOGICAL: Intubated. Gag and corneal reflex positive. No reaction to threat. No reaction to pain Laboratory Laboratory Tests Test 12/14/16 12/14/16 12/14/16 12/14/16 17:20 20:40 21:36 23:18 Lactic Acid Level 2.7 mmol/L 3.4 mmol/L Troponin I 3.44 NG/ML White Blood Count 26.0 TH/MM3 Red Blood Count 4.11 MIL/MM3 Hemoglobin 12.9 GM/DL Hematocrit 38.5 % Mean Corpuscular Volume 93.8 FL Mean Corpuscular Hemoglobin 31.3 PG Mean Corpuscular Hemoglobin 33.4 % Concent Red Cell Distribution Width 12.8 % Platelet Count 185 TH/MM3 Mean Platelet Volume 8.2 FL Prothrombin Time 12.0 SEC Prothromb Time International 1.1 RATIO Ratio Activated Partial 32.2 SEC Thromboplast Time Test 12/15/16 05:30 White Blood Count 24.6 TH/MM3 Red Blood Count 3.92 MIL/MM3 Hemoglobin 12.7 GM/DL Hematocrit 36.6 % Mean Corpuscular Volume 93.3 FL Mean Corpuscular Hemoglobin 32.4 PG Mean Corpuscular Hemoglobin 34.7 % Concent Red Cell Distribution Width 12.8 % Platelet Count 178 TH/MM3 Mean Platelet Volume 8.7 FL Neutrophils (%) (Auto) 94.0 % Lymphocytes (%) (Auto) 1.0 % Monocytes (%) (Auto) 4.9 % Eosinophils (%) (Auto) 0.0 % Basophils (%) (Auto) 0.1 % Neutrophils # (Auto) 23.1 TH/MM3 Lymphocytes # (Auto) 0.3 TH/MM3 Monocytes # (Auto) 1.2 TH/MM3 Eosinophils # (Auto) 0.0 TH/MM3 Basophils # (Auto) 0.0 TH/MM3 CBC Comment DIFF FINAL Differential Comment Activated Partial 39.7 SEC Thromboplast Time Sodium Level 131 MEQ/L Potassium Level 4.3 MEQ/L Chloride Level 99 MEQ/L Carbon Dioxide Level 22.4 MEQ/L Anion Gap 10 MEQ/L Blood Urea Nitrogen 46 MG/DL Creatinine 1.54 MG/DL Estimat Glomerular Filtration 46 ML/MIN Rate Random Glucose 229 MG/DL Calcium Level 7.4 MG/DL Protein Corrected Calcium 8.3 MG/DL Total Bilirubin 3.2 MG/DL Aspartate Amino Transf 48 U/L (AST/SGOT) Alanine Aminotransferase 44 U/L (ALT/SGPT) Alkaline Phosphatase 75 U/L Total Protein 5.4 GM/DL Albumin 1.9 GM/DL Assessment and Plan Problem List: (1) STEMI (ST elevation myocardial infarction) (2) COPD exacerbation (3) Tobacco abuse (4) Hypertension (5) Atrial fibrillation with RVR (6) Pericardial effusion (7) Chest pain (8) Pericardial effusion with cardiac tamponade Assessment and Plan 1) CVA with numerous ischemic areas on MRI Possible thrombus vs. endocarditis Did have positive blood cultures with Gram positive cocci Considering YOANDY, although unsure if it changes management 2) Inferolateral STEMI last night Not a candidate for invasive therapy with CVA/mental status change Con't medical management Placed on heparin, concern for transition of ischemia CVA to hemorrhagic, but neurology ok with heparin 3) Cardiac arrest with VT, most likely ischemic in nature 4) VDRF 5) Discussed with critical care team and nursing 6) Greater than 30mins of critical care time spent Problem Qualifiers (1) Chest pain: Qualified Code: R07.9 - Chest pain, unspecified type Elpidio Beth DO Dec 15, 2016 10:19
--- NOTE | 2016-12-15 11:59 | PD.CONS ---
Consult Service Palliative Care Consult Requested By Dr. Tejada . Primary Care Physician Kyra Dickens MD Reason for Consultation a. To assist with evaluation and management of symptoms including: dyspnea, chest pain, malnutrition b. To assist medical decision maker(s) with: better understanding of current medical conditions; weighing benefits/burdens of medical treatment options; making medical treatment decisions. (Radha Bailey) HPI History of Present Illness This 66-year-old patient presented to the ED on 12/07/16 with complaints of chest pain, shortness of breath, dyspepsia. He reported sharp pain, pressure localize around substernal region. Denied radiation. Complained of palpitations that morning. He denied cough, congestion, fever or chills. Endorsed frequent burping, but no nausea vomiting or diarrhea or abdominal pain. Known history of atrial fibrillation, hypertension, diabetes, hyperlipidemia. Status post EPS ablation with Dr. Diamond last month. Patient reported recently quit smoking. Has had multiple visits in October/October to ED for A. fib/cardiac complaints- noted to have been recently treated with Levaquin for possible pneumonia, also recently seen in chest pain center, recent LEXISCAN scan which was negative, CTA chest done 5 days prior indicating basilar consolidation and moderate size pericardial effusion. Hospital course: * Patient noted to be in atrial flutter/tachycardia with RVR in ED. started on Cardizem drip. Pericardial effusion on recent CT chest imaging felt to be likely secondary to inflammation from cardiac ablation. Ordered for repeat echo. Cardiology Dr. Diamond consulted. Though patient on Levaquin not clear that patient has pneumonia. CXR 12/07 indicates right base infiltrate likely small effusions, change in cardiac silhouette appearance raises possibility of pericardial effusion. CBC with mild leukocytosis 13.3. Chemistry notable for hyponatremia sodium 122, BUN 33. Initiated on IV fluids. Troponin less than 0.02. BNP 176. BUN 2.7. TSH unremarkable. LFTs unremarkable. Admitted for further evaluation management. * 2-D echo 12/07= normal left ventricular size, wall thickness normal. Ventricular systolic function low normal EF 5055 percent. Trace tricuspid regurg. Mild pulmonary hypertension. Moderate pericardial effusion. Possibility of hemodynamic compromise cannot be excluded. No associated right atrial or right ventricular chamber collapse noted. * 12/08--to interventional radiology CT-guided pericardiocentesis, .s/p 600cc yellow/cloudy fluid removed. dyspnea improved post procedure. Cardiology Dr. Diamond known to patient consulted--notes patient with known history of atrial fibrillation with previous ablation. He is in and out of atrial fibrillation, will require repeat of procedure. Planned for repeat ablation at some point during hospitalization. * 12/10 Cardizem drip discontinued, resumed amiodarone. * 12/11pericardial drain removed. Some wheezing felt to be secondary to COPD. * 12/12Repeat CT chest = small pleural/pericardial effusions and consolidations * 12/13 patient awoke overnight with chest painfull workup completed. He was also having some confusion received Ativan 2, morphine 2. No focal neuro weakness was noted. Received nitroglycerin. No headache prior to nitroglycerin. Was in sinus rhythm. Later in the day up out of bed and active no further chest pain. Back in A. fib/RVR later in the afternoon, resumed on Cardizem drip. * 12/14 cardiology following continues amiodarone, Cardizem, adding IV and oral metoprolol. Called as stroke alert for left hemiparesis which later improved. CT brain negative for acute process. Transfer to ICU. Neurology consulted. Patient felt to be appropriate candidate for TPA, with left hemiparetic acute syndrome. Planned for TPA. CTA neck with no significant stenosis and carotids. CTA brain negative. * 12/14 repeat echo moderate-sized pericardial effusion noted hemodynamically significant echocardiographic features observed. Neurological status started to improve and TPA was held; patient later became suddenly unresponsive, with agonal breathing, hypoxic O2 sats in the 60s noted to be in V. tach. ACLS protocol initiated receiving round of epi, bicarbonate, as well as shock. INTUBATED and placed on mechanical vent. Hypotension during/postcode initiated on Levophed, fentanyl sedation. Started on empiric antibiotics, Zosyn, Vanco. ID consulted for worsening leukocytosis. Central, arterial lines placed. * ID consulted: Repeat blood cultures pending. Continue Zosyn, Vanco. * 12/14 MRI obtained later notes numerous small scattered acute or subacute infarcts no mass effect. EKG notable for STEMI in both inferior leads and far lateral leads with reciprocal changes. Serial enzymes pending. Due to new stroke findings contraindicated for acute [facility] interventions by cardiology. Will require anticoagulation ASA, heparin. * 12/15 remains intubated, sedated. On Levophed. On amiodarone drip. On heparin drip. Patient with seizures overnight requiring Ativan. Started on Keppra. Continued with anticoagulation as felt to be embolic stroke. Per cardiology: Possible thrombus vs. endocarditis , +positive blood cultures with Gram positive cocci, Considering YOANDY, although unsure if it changes management. Palliative care consulted to assist with clarification of goals of treatment. Patient seen in room no family present. Nursing to notify me when family arrives. Discussed at length with primary nurse, critical care. Family Arrived later in the afternoon, met with them at length. See family conference for additional detail. Function/Cognitive Trajectory Lives at home with his , independent with ADLs. 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 Past Surgical History Left ankle ORIF EPS with ablation 10/2016 . Reported Medications Tylenol-Codeine #3 (Acetaminophen-Codeine) 300-30 mg Tab 1-2 Tab PO Q6H PRN Levaquin (Levofloxacin) 750 Mg Tablet 1 Tab PO DAILY Amiodarone (Amiodarone HCl) 200 Mg Tab 400 Mg PO DIRECTED 30 Days 400mg po bid x 10 days, then 200mg po daily Lisinopril 10 Mg Tab 10 Mg PO DAILY Pantoprazole (Pantoprazole Sodium) 40 Mg Tab 40 Mg PO DAILY Eliquis (Apixaban) 5 Mg Tab 5 Mg PO BID Atorvastatin (Atorvastatin Calcium) 40 Mg Tab 40 Mg PO HS . Current Medications Medications (Trade) Dose Ordered Sig/Michelle Route Start Time Stop Time Status Last Admin (Lipitor) 40 mg HS PO 12/07/16 21:00 12/14/16 22:18 (Robitussin Liq) 200 mg Q4H PRN PO 12/08/16 12:15 12/09/16 04:38 (Cordarone) 200 mg DAILY PO 12/10/16 09:00 12/14/16 08:22 (Colchicine) 0.6 mg DAILY PO 12/11/16 09:00 12/15/16 08:58 (Imodium) 2 mg Q6H PRN PO 12/10/16 22:00 12/12/16 10:56 (Mucinex Er) 600 mg BID PO 12/11/16 21:00 12/14/16 22:18 (Phazyme Chew) 125 mg Q8HR PO 12/12/16 10:00 12/15/16 05:07 (Tylenol) 650 mg Q6H PRN PO 12/12/16 22:45 12/13/16 21:16 (Morphine Inj) 2 mg Q8H PRN IV PUSH 12/13/16 01:15 12/14/16 08:23 (Romazicon Inj) 0.2 mg Q1M PRN IV PUSH 12/13/16 06:30 Lorazepam 1 mg 1 mg Q6H PRN PO 12/13/16 08:45 12/14/16 02:45 (Cardizem Inj/NS Inj) 125 ml @ 0 mls/hr TITRATE IV 12/13/16 16:00 12/14/16 06:21 Miscellaneous Information If patient on Metfor... UNSCH PRN .XX 12/14/16 05:45 12/16/16 05:44 Miscellaneous Information Patient in critical care unit? Ass... Q361D .XX 12/14/16 06:30 12/14/16 06:26 (Chlorhexidine 2% Cloth) 3 pack DAILY@04 TOPICAL 12/15/16 04:00 12/19/16 04:01 12/15/16 03:06 (Chlorhexidine 2% Cloth) 3 pack UNSCH PRN TOPICAL 12/14/16 06:30 12/19/16 06:24 Chlorhexidine Gluconate 15 ml 15 ml BID@08,20 MT 12/14/16 20:00 12/15/16 09:49 Potassium Chloride 100 ml @ 50 mls/hr Q2H PRN IV 12/14/16 09:30 (KCl 20 Meq Premix Inj) 100 ml @ 50 mls/hr Q2H PRN IV 12/14/16 09:30 Potassium Bicarb/ Potassium Chloride 50 meq 50 meq UNSCH PRN PO 12/14/16 09:30 Potassium Chloride 100 ml @ 25 mls/hr UNSCH PRN IV 12/14/16 09:30 Potassium Chloride 100 ml @ 50 mls/hr Q2H PRN IV 12/14/16 09:30 (Magnesium Sulfate Inj/NS Inj) 100 ml @ 50 mls/hr UNSCH PRN IV 12/14/16 09:30 Magnesium Oxide 800 mg 800 mg UNSCH PRN PO 12/14/16 09:30 (Magnesium Sulfate Inj/NS Inj) 100 ml @ 50 mls/hr UNSCH PRN IV 12/14/16 09:30 Potassium Phosphate 2000 mg 2,000 mg Q4H PRN PO 12/14/16 09:30 (Sodium Phosphate Inj/NS 250 ml Inj) 250 ml @ 42 mls/hr UNSCH PRN IV 12/14/16 09:30 Potassium Phosphate 2000 mg 2,000 mg UNSCH PRN PO/TUBE 12/14/16 09:30 Potassium Phosphate 30 mmol/ Sodium Chloride 260 ml @ 42 mls/hr UNSCH PRN IV 12/14/16 09:30 Sodium Chloride 1,000 ml @ 75 mls/hr [id number] IV 12/14/16 10:00 12/15/16 04:59 (Zosyn 4.5 Gm Premix) 100 ml @ 200 mls/hr Q6H IV 12/14/16 10:00 12/15/16 08:27 (D50w (Vial) Inj) 50 ml UNSCH PRN IV 12/14/16 09:45 (Glucagon Inj) 1 mg UNSCH PRN OTHER 12/14/16 09:45 (NovoLIN R SUPPLEMENTAL SCALE) 1 Q4H SQ 12/14/16 10:00 12/15/16 10:00 (Protonix Inj) 40 mg Q24H IV PUSH 12/15/16 10:00 12/15/16 08:32 Hydrocortisone Sodium Succinate 50 mg 50 mg Q6H IV PUSH 12/14/16 15:00 12/15/16 08:31 Fentanyl Citrate 250 ml @ 0 mls/hr TITRATE IV 12/14/16 10:30 12/15/16 07:41 Pharmacy Profile Note 0 ml @ 0 mls/hr UNSCH OTHER 12/14/16 10:45 Vasopressin 40 units/Dextrose 100 ml @ 4.5 mls/hr [id number] IV 12/14/16 10:38 (Levophed-Dextrose Drip) 250 ml @ 0 mls/hr TITRATE IV 12/14/16 11:15 12/15/16 05:07 (Brethine Inj) 1 mg UNSCH PRN SQ 12/14/16 11:15 Miscellaneous Information SPECIFIC LAB TO BE ARISTEO... ONCE ONCE .XX 12/16/16 00:45 12/16/16 00:46 (Vancomycin Inj/ NS 250 ml Inj) 250 ml @ 250 mls/hr Q12H IV 12/15/16 01:00 12/14/16 16:55 Aspirin 324 mg 324 mg DAILY CHEW 12/15/16 09:00 12/15/16 08:29 (Heparin-D5W Inj) 250 ml @ 0 mls/hr TITRATE IV 12/14/16 23:15 12/14/16 23:40 Clopidogrel Bisulfate 75 mg 75 mg DAILY PO 12/15/16 09:00 12/15/16 08:27 Amiodarone HCl 450 mg/Dextrose 250 ml @ 0 mls/hr CONTINUOUS IV 12/15/16 04:00 12/15/16 04:17 (Keppra Inj/NS Inj) 105 ml @ 420 mls/hr Q12H IV 12/15/16 10:00 12/15/16 09:49 (Ativan Inj) 1 mg Q4H PRN IV PUSH 12/15/16 09:45 Family History Mother secondary to cancer, possibly lung cancer Father age 78, possibly due to unspecified liver disease Patient has 2 brothers and 2 sisters, some of whom have hypertension . Substance Use Tobacco: 1 PPD 45 years, quit 2 months ago Alcohol: 2 beers daily Prescription med abuse: Denies Illicits: Denies . Psychosocial History Lives at home with his . 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 Supported By 2 adult children. Originally from [place] and lived in [place] since the . . Spiritual/Cultural Factors Protestant believes in God diet attendant has been in to see (Radha Bailey) Living Will: Never completed Health Care Surrogate: Never completed Ethical and Legal Issues Patient is not able to participate in decision-making due to clinical condition. Not clear if he will regain ability. No advanced directive or HCS. Per [place] statutes his would be appropriate legal proxy. (LynnRadha GIOVANNY) Physical Exam Vital Signs Date Time Temp Pulse Resp B/P Pulse Ox O2 Delivery O2 Flow Rate FiO2 12/15/16 11:07 97 45 12/15/16 07:30 91 45 12/15/16 06:00 131 12/15/16 04:23 92 45 12/15/16 04:00 131 12/15/16 04:00 99.3 131 20 83/68 95 92/60 12/15/16 04:00 45 12/15/16 02:00 85 12/15/16 01:06 95 40 12/15/16 00:00 99.3 87 20 94/62 94 102/63 12/15/16 00:00 45 12/15/16 00:00 87 12/14/16 22:00 108 12/14/16 21:10 90 12/14/16 20:58 94 45 12/14/16 20:00 92 Mechanical Ventilator 45 12/14/16 20:00 45 12/14/16 20:00 83 12/14/16 20:00 97.6 83 104/73 92 109/65 12/14/16 18:00 82 12/14/16 18:00 98 100 12/14/16 16:00 86 12/14/16 16:00 98.8 86 24 115/75 92 119/66 12/14/16 16:00 40 12/14/16 15:25 93 40 12/14/16 15:23 99 100 12/14/16 14:00 83 12/14/16 12:00 99.8 87 20 101/73 92 109/61 12/14/16 12:00 87 12/14/16 12:00 40 12/14/16 11:55 94 40 12/14/16 12/15/16 19:00 07:00 Intake Total 3058 ml 3406 ml Output Total 850 ml 475 ml Balance 2208 ml 2931 ml IV Total 3058 ml 3306 ml Other 100 ml Output Urine Total 700 ml 375 ml Gastric Drainage Total 150 ml 100 ml Exam CONSTITUTIONAL/GENERAL: This is an adequately nourished patient, comfortable mechanical vent TUBES/LINES/DRAINS: Central line right IJ, OG tube, ET tube, Muro catheter SKIN: No jaundice, rashes, or lesions. No wounds seen anteriorly. Skin temperature warmdistal feet cool. Not diaphoretic. HEAD: Atraumatic. Normocephalic. EYES: Pupils 2 mm, slight reaction to light. No scleral icterus. No injection or drainage. Fundi not examined. ENT: Nose without bleeding or purulent drainage. Unable to fully visualize oropharynx due to ET tube, OG tube NECK: Trachea midline. Supple, nontender. No palpable thyroid enlargement or nodularity. CARDIOVASCULAR: Irregular rate and rhythm, atrial fib visualized on monitor. No JVD. Peripheral pulses symmetric-pedal pulses are very faint, feet cool to touch, slight mottling to palmar surface of foot RESPIRATORY/CHEST: Symmetric, unlabored respirations via mechanical vent. Clear to auscultation. Breath sounds equal bilaterally. GASTROINTESTINAL: Abdomen soft, and able to determine tenderness, slightly distended. No hepato-splenomegaly, or palpable masses. Bowel sounds hypoactive. GENITOURINARY: Without palpable bladder distension. Muro catheter in place. Clear yellow urine. MUSCULOSKELETAL: Extremities without clubbing, cyanosis, or edema. LYMPHATICS: No palpable cervical or supraclavicular adenopathy. NEUROLOGICAL: Sedated on mechanical vent. Does not stir to my light touch or exam. No eye opening to touch. PSYCHIATRIC: Limited exam due to clinical condition. No apparent anxiety. (Radha Bailey) Diagnostic Tests Laboratory Laboratory Tests Test 12/12/16 12/13/16 12/13/16 12/13/16 22:44 04:10 05:28 12:24 Total Creatine Kinase 49 U/L (39-308) Troponin I LESS THAN 0.02 NG/ML (0.02-0.05) Blood Gas Puncture Site RT RADIAL Blood Gas Patient Temperature 98.6 Blood Gas HCO3 22 mmol/L (22-26) Blood Gas Base Excess -1.2 mmol/L (-2-2) Blood Gas Oxygen Saturation 92 % (90-100) Arterial Blood pH 7.47 (7.380-7.420) Arterial Blood Partial 30 mmHg (38-42) Pressure CO2 Arterial Blood Partial 70 mmHg Pressure O2 (61-120) Arterial Blood Oxygen Content 18.1 Vol % (12.0-20.0) Arterial Blood 1.6 % (0-4) Carboxyhemoglobin Arterial Blood Methemoglobin 0.9 % (0-2) Blood Gas Hemoglobin 14.1 G/DL (12.0-16.0) Oxygen Delivery Device NASAL CANNULA Blood Gas Liter Flow 3.5 L/M White Blood Count 12.6 TH/MM3 (4.0-11.0) Red Blood Count 4.22 MIL/MM3 (4.50-5.90) Hemoglobin 13.7 GM/DL (13.0-17.0) Hematocrit 38.5 % (39.0-51.0) Mean Corpuscular Volume 91.4 FL (80.0-100.0) Mean Corpuscular Hemoglobin 32.5 PG (27.0-34.0) Mean Corpuscular Hemoglobin 35.5 % Concent (32.0-36.0) Red Cell Distribution Width 12.2 % (11.6-17.2) Platelet Count 295 TH/MM3 (150-450) Mean Platelet Volume 7.4 FL (7.0-11.0) Neutrophils (%) (Auto) 98.1 % (16.0-70.0) Lymphocytes (%) (Auto) 1.3 % (9.0-44.0) Monocytes (%) (Auto) 0.4 % (0.0-8.0) Eosinophils (%) (Auto) 0.0 % (0.0-4.0) Basophils (%) (Auto) 0.2 % (0.0-2.0) Neutrophils # (Auto) 12.4 TH/MM3 (1.8-7.7) Lymphocytes # (Auto) 0.2 TH/MM3 (1.0-4.8) Monocytes # (Auto) 0.0 TH/MM3 (0-0.9) Eosinophils # (Auto) 0.0 TH/MM3 (0-0.4) Basophils # (Auto) 0.0 TH/MM3 (0-0.2) CBC Comment DIFF FINAL Differential Comment Sodium Level 135 MEQ/L (136-145) Potassium Level 3.9 MEQ/L (3.5-5.1) Chloride Level 99 MEQ/L (98-107) Carbon Dioxide Level 24.6 MEQ/L (21.0-32.0) Anion Gap 11 MEQ/L (5-15) Blood Urea Nitrogen 20 MG/DL (7-18) Creatinine 0.89 MG/DL (0.60-1.30) Estimat Glomerular Filtration 86 ML/MIN (>89) Rate Random Glucose 106 MG/DL (74-106) Lactic Acid Level 2.5 mmol/L 2.6 mmol/L (0.4-2.0) (0.4-2.0) Calcium Level 8.5 MG/DL (8.5-10.1) Total Bilirubin 1.2 MG/DL (0.2-1.0) Aspartate Amino Transf 22 U/L (15-37) (AST/SGOT) Alanine Aminotransferase 75 U/L (12-78) (ALT/SGPT) Alkaline Phosphatase 134 U/L (45-117) Total Protein 6.4 GM/DL (6.4-8.2) Albumin 2.9 GM/DL (3.4-5.0) Test 12/13/16 12/14/16 12/14/16 12/14/16 23:22 03:45 06:05 08:55 Urine Color YELLOW (YELLW/STRAW) Urine Turbidity CLEAR (CLEAR) Urine pH 6.5 (5.0-8.5) Urine Specific [place] 1.023 (1.002-1.035) Urine Protein TRACE mg/dL (NEG-TRACE) Urine Glucose (UA) NEG mg/dL (NEG) Urine Ketones NEG mg/dL (NEG) Urine Occult Blood NEG (NEG) Urine Nitrite NEG (NEG) Urine Bilirubin NEG (NEG) Urine Urobilinogen LESS THAN 2.0 MG/DL (LESS THAN 2.0) Urine Leukocyte Esterase NEG (NEG) Urine RBC 1 /hpf (0-3) Urine WBC 2 /hpf (0-5) Urine Mucus FEW /lpf (OCC) Microscopic Urinalysis Comment CULT NOT INDICATED White Blood Count 20.3 TH/MM3 (4.0-11.0) Red Blood Count 4.17 MIL/MM3 (4.50-5.90) Hemoglobin 13.2 GM/DL (13.0-17.0) Bedside Hemoglobin 13.3 G/DL (12.0-17.0) Hematocrit 39.0 % (39.0-51.0) Bedside Hematocrit 39.0 % (38.0-51.0) Mean Corpuscular Volume 93.6 FL (80.0-100.0) Mean Corpuscular Hemoglobin 31.7 PG (27.0-34.0) Mean Corpuscular Hemoglobin 33.9 % Concent (32.0-36.0) Red Cell Distribution Width 12.3 % (11.6-17.2) Platelet Count 217 TH/MM3 (150-450) Mean Platelet Volume 7.0 FL (7.0-11.0) Neutrophils (%) (Auto) 95.4 % (16.0-70.0) Lymphocytes (%) (Auto) 1.6 % (9.0-44.0) Monocytes (%) (Auto) 2.0 % (0.0-8.0) Eosinophils (%) (Auto) 0.0 % (0.0-4.0) Basophils (%) (Auto) 1.0 % (0.0-2.0) Neutrophils # (Auto) 19.3 TH/MM3 (1.8-7.7) Lymphocytes # (Auto) 0.3 TH/MM3 (1.0-4.8) Monocytes # (Auto) 0.4 TH/MM3 (0-0.9) Eosinophils # (Auto) 0.0 TH/MM3 (0-0.4) Basophils # (Auto) 0.2 TH/MM3 (0-0.2) CBC Comment AUTO DIFF Differential Comment AUTO DIFF CONFIRMED Prothrombin Time 12.6 SEC (9.8-11.6) Prothromb Time International 1.1 RATIO Ratio Activated Partial 26.9 SEC Thromboplast Time (24.3-30.1) Fibrinogen 425 mg/dL (227-377) Bedside Sodium 133 MMOL/L (138-146) Bedside Potassium 4.6 MMOL/L (3.5-4.9) Bedside Chloride 98 MMOL/L (98-109) Bedside Blood Urea Nitrogen 29 MG/DL (8-26) Bedside Creatinine 1.0 MG/DL (0.8-1.3) Bedside Glucose 156 MG/DL (60-95) Total Creatine Kinase 135 U/L (39-308) Troponin I 6.02 NG/ML (0.02-0.05) Blood Type B POSITIVE Antibody Screen NEGATIVE Blood Bank Comment Nasal Screen MRSA (PCR) MRSA NOT DETECTED (NOT DETECT) Blood Gas Puncture Site ART LINE Blood Gas Patient Temperature 98.6 Blood Gas HCO3 21 mmol/L (22-26) Blood Gas Base Excess -3.4 mmol/L (-2-2) Blood Gas Oxygen Saturation 97 % (90-100) Arterial Blood pH 7.34 (7.380-7.420) Arterial Blood Partial 41 mmHg (38-42) Pressure CO2 Arterial Blood Partial 281 mmHg Pressure O2 (61-120) Arterial Blood Oxygen Content 18.0 Vol % (12.0-20.0) Arterial Blood 1.2 % (0-4) Carboxyhemoglobin Arterial Blood Methemoglobin 1.0 % (0-2) Blood Gas Hemoglobin 12.7 G/DL (12.0-16.0) Oxygen Delivery Device VENTILATOR Blood Gas Ventilator Setting AC1/20/600/+5 Blood Gas Inspired Oxygen 100 % Test 12/14/16 12/14/16 12/14/16 12/14/16 10:00 17:20 20:40 21:36 White Blood Count 22.9 TH/MM3 (4.0-11.0) Red Blood Count 4.05 MIL/MM3 (4.50-5.90) Hemoglobin 12.8 GM/DL (13.0-17.0) Hematocrit 37.9 % (39.0-51.0) Mean Corpuscular Volume 93.7 FL (80.0-100.0) Mean Corpuscular Hemoglobin 31.6 PG (27.0-34.0) Mean Corpuscular Hemoglobin 33.7 % Concent (32.0-36.0) Red Cell Distribution Width 12.6 % (11.6-17.2) Platelet Count 220 TH/MM3 (150-450) Mean Platelet Volume 7.6 FL (7.0-11.0) Neutrophils (%) (Auto) 97.1 % (16.0-70.0) Lymphocytes (%) (Auto) 0.8 % (9.0-44.0) Monocytes (%) (Auto) 1.4 % (0.0-8.0) Eosinophils (%) (Auto) 0.0 % (0.0-4.0) Basophils (%) (Auto) 0.7 % (0.0-2.0) Neutrophils # (Auto) 22.3 TH/MM3 (1.8-7.7) Lymphocytes # (Auto) 0.2 TH/MM3 (1.0-4.8) Monocytes # (Auto) 0.3 TH/MM3 (0-0.9) Eosinophils # (Auto) 0.0 TH/MM3 (0-0.4) Basophils # (Auto) 0.2 TH/MM3 (0-0.2) CBC Comment DIFF FINAL Differential Comment Sodium Level 132 MEQ/L (136-145) Potassium Level 4.2 MEQ/L (3.5-5.1) Chloride Level 99 MEQ/L (98-107) Carbon Dioxide Level 26.1 MEQ/L (21.0-32.0) Anion Gap 7 MEQ/L (5-15) Blood Urea Nitrogen 33 MG/DL (7-18) Creatinine 1.04 MG/DL (0.60-1.30) Estimat Glomerular Filtration 72 ML/MIN (>89) Rate Random Glucose 235 MG/DL (74-106) Lactic Acid Level 2.7 mmol/L 2.7 mmol/L 3.4 mmol/L (0.4-2.0) (0.4-2.0) (0.4-2.0) Calcium Level 7.1 MG/DL (8.5-10.1) Protein Corrected Calcium 8.1 MG/DL (8.5-10.1) Phosphorus Level 3.9 MG/DL (2.5-4.9) Magnesium Level 2.1 MG/DL (1.5-2.5) Total Bilirubin 1.9 MG/DL (0.2-1.0) Aspartate Amino Transf 34 U/L (15-37) (AST/SGOT) Alanine Aminotransferase 55 U/L (12-78) (ALT/SGPT) Alkaline Phosphatase 87 U/L (45-117) Total Creatine Kinase 75 U/L (39-308) Troponin I 4.88 NG/ML 3.44 NG/ML (0.02-0.05) (0.02-0.05) Total Protein 5.2 GM/DL (6.4-8.2) Albumin 2.2 GM/DL (3.4-5.0) Test 12/14/16 12/15/16 12/15/16 23:18 05:30 10:30 White Blood Count 26.0 TH/MM3 24.6 TH/MM3 (4.0-11.0) (4.0-11.0) Red Blood Count 4.11 MIL/MM3 3.92 MIL/MM3 (4.50-5.90) (4.50-5.90) Hemoglobin 12.9 GM/DL 12.7 GM/DL (13.0-17.0) (13.0-17.0) Hematocrit 38.5 % 36.6 % (39.0-51.0) (39.0-51.0) Mean Corpuscular Volume 93.8 FL 93.3 FL (80.0-100.0) (80.0-100.0) Mean Corpuscular Hemoglobin 31.3 PG 32.4 PG (27.0-34.0) (27.0-34.0) Mean Corpuscular Hemoglobin 33.4 % 34.7 % Concent (32.0-36.0) (32.0-36.0) Red Cell Distribution Width 12.8 % 12.8 % (11.6-17.2) (11.6-17.2) Platelet Count 185 TH/MM3 178 TH/MM3 (150-450) (150-450) Mean Platelet Volume 8.2 FL 8.7 FL (7.0-11.0) (7.0-11.0) Prothrombin Time 12.0 SEC (9.8-11.6) Prothromb Time International 1.1 RATIO Ratio Activated Partial 32.2 SEC 39.7 SEC Thromboplast Time (24.3-30.1) (24.3-30.1) Neutrophils (%) (Auto) 94.0 % (16.0-70.0) Lymphocytes (%) (Auto) 1.0 % (9.0-44.0) Monocytes (%) (Auto) 4.9 % (0.0-8.0) Eosinophils (%) (Auto) 0.0 % (0.0-4.0) Basophils (%) (Auto) 0.1 % (0.0-2.0) Neutrophils # (Auto) 23.1 TH/MM3 (1.8-7.7) Lymphocytes # (Auto) 0.3 TH/MM3 (1.0-4.8) Monocytes # (Auto) 1.2 TH/MM3 (0-0.9) Eosinophils # (Auto) 0.0 TH/MM3 (0-0.4) Basophils # (Auto) 0.0 TH/MM3 (0-0.2) CBC Comment DIFF FINAL Differential Comment Sodium Level 131 MEQ/L (136-145) Potassium Level 4.3 MEQ/L (3.5-5.1) Chloride Level 99 MEQ/L (98-107) Carbon Dioxide Level 22.4 MEQ/L (21.0-32.0) Anion Gap 10 MEQ/L (5-15) Blood Urea Nitrogen 46 MG/DL (7-18) Creatinine 1.54 MG/DL (0.60-1.30) Estimat Glomerular Filtration 46 ML/MIN (>89) Rate Random Glucose 229 MG/DL (74-106) Calcium Level 7.4 MG/DL (8.5-10.1) Protein Corrected Calcium 8.3 MG/DL (8.5-10.1) Total Bilirubin 3.2 MG/DL (0.2-1.0) Aspartate Amino Transf 48 U/L (15-37) (AST/SGOT) Alanine Aminotransferase 44 U/L (12-78) (ALT/SGPT) Alkaline Phosphatase 75 U/L (45-117) Total Protein 5.4 GM/DL (6.4-8.2) Albumin 1.9 GM/DL (3.4-5.0) Lactic Acid Level 2.2 mmol/L (0.4-2.0) Troponin I 13.60 NG/ML (0.02-0.05) (Radha Bailey) Result Diagram: 12/15/1652912/15/16529 Microbiology Microbiology Date/Time Procedure Status Source Growth 12/13/16 05:28 Aerobic Blood Culture - Preliminary Resulted Blood Peripheral Gram Positive Cocci 12/13/16 05:28 Anaerobic Blood Culture - Preliminary Resulted Gram Positive Cocci 12/13/16 05:33 Aerobic Blood Culture - Preliminary Resulted Blood Peripheral Strep Anginosus/Milleri 12/13/16 05:33 Anaerobic Blood Culture - Preliminary Resulted Gram Positive Cocci 12/14/16 10:40 Streptococcus pneumoniae Antigen (M - Final Complete Urine Catheterized Urine PRESUMPTIVE NEGATIVE FOR STREPTOCOCCU... 12/14/16 10:40 Legionella Antigen - Final Complete Urine Catheterized Urine PRESUMPTIVE NEGATIVE FOR LEGIONELLA P... 12/14/16 11:30 Gram Stain - Final Resulted Sputum Endotracheal 12/14/16 11:30 Sputum Culture Resulted Sputum Endotracheal Pending 12/14/16 17:20 Aerobic Blood Culture - Preliminary Resulted Blood Peripheral NO GROWTH IN 1 DAY 12/14/16 17:20 Anaerobic Blood Culture - Preliminary Resulted Blood Peripheral NO GROWTH IN 1 DAY 12/14/16 17:25 Aerobic Blood Culture - Preliminary Resulted Blood Peripheral NO GROWTH IN 1 DAY 12/14/16 17:25 Anaerobic Blood Culture - Preliminary Resulted Blood Peripheral NO GROWTH IN 1 DAY 12/15/16 06:09 Aerobic Blood Culture Received Blood Peripheral Pending 12/15/16 06:09 Anaerobic Blood Culture Received Blood Peripheral Pending Imaging Last Impressions Neck CTA 12/14/16 0000 Signed Impressions: Service Date/Time: Wednesday, December 14, 2016 04:20 - CONCLUSION: No significant stenoses in the carotids. Incidental note of bilateral pleural effusions and upper lobe emphysema. Aristeo Tellez MD Head CTA 12/14/16 0000 Signed Impressions: Service Date/Time: Wednesday, December 14, 2016 04:20 - CONCLUSION: Negative intracranial CTA. No evidence of vessel truncation. Aristeo Tellez MD Head CT 12/14/16 0000 Signed Impressions: Service Date/Time: Wednesday, December 14, 2016 14:56 - CONCLUSION: 1. There is a new 6 mm area low density in the left basal ganglia which could represent a recent area of ischemia. There is stable encephalomalacia in the right cerebellum. 2. Nonspecific punctate areas of air near the right cerebellum and left occipital region. These are of uncertain etiology but may be related to retrograde venous air. The air in the right cerebellar region is near the sinus. Since this is of uncertain etiology consider followup CT to assess for change. Davey Hernandez MD Chest X-Ray 12/14/16 0000 Signed Impressions: Service Date/Time: Wednesday, December 14, 2016 09:26 - CONCLUSION: Support apparatus in good position. 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 No bleed, mass effect or midline shift. Davey Nicholas MD Chest CT 12/12/16 0000 Signed Impressions: Service Date/Time: Monday, December 12, 2016 12:13 - CONCLUSION: 1. Small bilateral pleural effusions and subsegmental consolidating airspace disease in the bases. 2. Persistent small pericardial effusion. 3. No other significant abnormality. Roman Cordero MD Pericardiocentesis 12/08/16 0815 Signed Impressions: Service Date/Time: Thursday, December 08, 2016 08:43 - CONCLUSION: Uncomplicated CT-guided pericardial centesis as above. Roman Cordero MD Procedures 12/14femoral arterial line right, right IJ central line 12/08--to interventional radiology CT-guided pericardiocentesis . (Radha Bailey) Patient/Family Conference Present at Family Conference: Daughter, son, , [id number] Family Conference Time (mins): 40 (minutes) Family Conference Location: Consult Room Issues Discussed: Met with patient family at length in the conference room, Rosa BALTAZAR also participated in meeting discussion included the following: * Palliative care role, purpose, approach * Additional medical, psychosocial, and spiritual history * Patients general health, functional status, and cognitive changes in the months leading up to the current hospitalization * Patient/family understanding of the current medical problems * Patient/family understanding of prognosis * Patients goals of care as best understood from advance directives and/or conversations and/or values * Current medical treatment options and benefits/burdens of those options * CODE STATUSwife elects full code * [place] statutes/legal decision makers- wishes to continue to service proxy, she understands that this means she needs to be available to provide consent for any ongoing needs * Likely scenarios comparing ongoing aggressive care with a transition to comfort measures only * Questions answered to the best of my ability * Palliative care contact information provided Son and daughter appear to have a reasonable understanding of conditions and overall prognosis. appears To be struggling to understand conditions and overall prognosis. For now goals are aggressive, they wish to continue maximize medical treatment available for various conditions, and are hopeful the patient can improve and make some recovery. However they are also open ongoing discussions as clinical course evolves. does verbalize the patient would not want to live like this long-term. Advised that in the coming days we will likely have additional information regarding conditions and prognosis. (Radha Bailey) Assessment and Plan Disease Oriented Problem List: (1) V-tach Comment: Status post V. tach arrest (2) Acute CVA (cerebrovascular accident) Comment: Likely embolic (3) ACS (acute coronary syndrome) (4) STEMI (ST elevation myocardial infarction) (5) Septic shock Comment: Gram-positive bacteremia (6) COPD (chronic obstructive pulmonary disease) (7) COPD exacerbation (8) Pericardial effusion (9) Atrial fibrillation with RVR (10) Lung consolidation (11) Hypertension (12) Hyponatremia (13) GERD (gastroesophageal reflux disease) (14) Hyperlipidemia (15) Leukocytosis (16) Diabetes Symptom Scale: (1) Dyspnea (2) Malnutrition (3) Pain (4) Encephalopathy Pertinent Non-Medical Issues Psychosocial: Spiritual: Legal:Patient is not able to participate in decision-making due to clinical condition. Not clear if he will regain ability. No advanced directive or HCS. Per [place] statutes his would be appropriate legal proxy. Ethical issues impacting care: Important Contacts Chantal Carrasco [phone] Brother Davey Carrasco [phone] . Prognosis This patient was admitted for chest pain, findings of atrial fib RVR, status post multiple ED visits for A. fib, chest pain, status post EPS ablation last month. This admission now with pericardial effusion, sepsis, multiple small areas of infarct per brain MRI, status post V. tach arrest 12/14. Now vented in ICU. High risk for ongoing complications and setbacks though possible patient can survive. Extent of recovery not known at this point, pending clinical course. . Code Status: Full Code Plan * Legal decision maker:Patient is not able to participate in decision-making due to clinical condition. Not clear if he will regain ability. No advanced directive or HCS. Per [place] statutes his would be appropriate legal proxy. * Goals: Goals aggressive for now, including FULL CODE. Family open to ongoing discussions regarding goals of treatment as clinical course evolves. * CODE STATUS: Full code * SYMPTOMS: --Dyspnea-emergently intubated during cardiac arrest 12/14, currently breathing comfortably on mechanical vent sedation with fentanyl. --Malnutrition- OG tube in place, tube feeding begun at low rate. Bowel sounds hypoactive. Albumin 1.9. Will continue to monitor. --Chest pain-patient presented with chest pain, multiple episodes of chest pain in the past months. Has required ongoing cardiac interventions secondary to ACS, STEMI, currently appears comfortable on fentanyl drip, will continue to evaluate -- encephalopathy- + mult areas small infarct per MRI, some neuro changes prior to acute cardiac event and intubation. Now sedated on mech vent. * Palliative care will continue to follow during hospital course as condition evolves, to assist patient/decision-maker with understanding of medical conditions, weighing benefits/burdens of treatment options, for clarification of goals of treatment. Additionally will assist with any symptoms of palliative concern (Radha Bailey) Time Spent Total Floor Time (mins): 60 (Radha Bailey) Thank you for the opportunity to participate in the care of Mr. Carrasco. (Radha Bailey) Attestation To help prompt me to consider important information that might be impacting today's encounter and assessment, information from prior notes written by myself or my colleagues may have been "brought forward" into today's note. My signature on this note, however, is an attestation that I personally performed the exam, history, and/or decision-making noted today, and, unless otherwise indicated, the interactions with patient, family, and staff as well as the review of records all occurred today. I also attest that the listed assessment and stated plan reflect my best clinical judgment today based on the combination of historical information, prior notes, and today's exam/ interactions. When time spent is documented, it refers only to time spent today by the signer, or if indicated, combined time spent today by collaborating physician/nurse practitioner. (Radha Bailey) Collaborating MD Comments Discussed with GIOVANNY, agree with assessment and plan (Bao Ward MD) Radha Bailey Dec 15, 2016 11:59 Bao Ward MD Dec 17, 2016 15:11
[2016-12-15] MEDS: VANCOMYCIN 1,000 MG/NS 250 ML IV SCH ×2 (13:48)
--- NOTE | 2016-12-15 14:13 | HHI.IDPN ---
Subjective Subjective Remarks Patient is a 66-year-old male, who has had problem with recurrent atrial fibrillation with RVR, presented to the hospital complaining of chest pain, shortness of breath, and some heartburn. He has had multiple admissions for A. fib with RVR. In November 09, he underwent ablation. Despite that he continued to have problem rapid atrial fibrillation. On this admission he came in for the same problem, and he had an echo which showed moderate pericardial effusion. He underwent pericardiocentesis done by IR. The fluid looks exudative. He was seen by cardiology again, and he was being evaluated for repeat ablation. His had continued problem with chest pain on top of his atrial arrhythmia. Early this morning stroke alert was called since she was noted to have left-sided weakness. He was transferred to the intensive care unit, was being evaluated for thrombolytic therapy. Patient subsequently had cardiac arrest, and ended up getting intubated. He is currently on sedation. He is on Levophed. His monitor shows controlled rate. His white count went up to above 20,000, an infectious disease consultation has been requested to evaluate the patient. The pericardial fluid culture is negative. 2 blood cultures were done yesterday and those are now reported as growing strep anginosus. He had another echocardiogram today and again showing moderate pericardial effusion. Highest temperature has been about 99.8. He is currently on the vent. Notes reviewed Sedated on the vent On pressors Temps ok Went into afib last night Had SEMI Also had SZ last night Brain MRI with mulitple infarct For YOANDY this afternoon C with Strep anginosus Antibiotics Vanco Zosyn Lines RIJ TLC R groin A line Past Medical History Paroxysmal atrial fibrillation Hypertension DM Hyperlipidemia GERD Erectile dysfunction History of prostate cancer, received radiation therapy Hx of tobacco use Past Surgical History Repair of left ankle fracture following orthopedic injuries secondary to a fall EPS with ablation performed by Dr. Diamond (11/09/16) Allergies: Coded Allergies: monosodium glutamate (Unverified Allergy, Intermediate, Hives, 12/15/16) Objective . Vital Signs Date Time Temp Pulse Resp B/P Pulse Ox O2 Delivery O2 Flow Rate FiO2 12/15/16 11:07 97 45 12/15/16 10:00 125 12/15/16 08:00 98.2 111 20 98/64 94 92/60 12/15/16 08:00 45 12/15/16 08:00 111 12/15/16 07:30 91 45 12/15/16 06:00 131 12/15/16 04:23 92 45 12/15/16 04:00 131 12/15/16 04:00 99.3 131 20 83/68 95 92/60 12/15/16 04:00 45 12/15/16 02:00 85 12/15/16 01:06 95 40 12/15/16 00:00 99.3 87 20 94/62 94 102/63 12/15/16 00:00 45 12/15/16 00:00 87 12/14/16 22:00 108 12/14/16 21:10 90 12/14/16 20:58 94 45 12/14/16 20:00 92 Mechanical Ventilator 45 12/14/16 20:00 45 12/14/16 20:00 83 12/14/16 20:00 97.6 83 104/73 92 109/65 12/14/16 18:00 82 12/14/16 18:00 98 100 12/14/16 16:00 86 12/14/16 16:00 98.8 86 24 115/75 92 119/66 12/14/16 16:00 40 12/14/16 15:25 93 40 12/14/16 15:23 99 100 12/14/16 12/14/16 12/15/16 15:00 23:00 07:00 Intake Total 3058 ml 1570 ml 1836 ml Output Total 850 ml 200 ml 275 ml Balance 2208 ml 1370 ml 1561 ml IV Total 3058 ml 1570 ml 1736 ml Other 100 ml Output Urine Total 700 ml 200 ml 175 ml Gastric Drainage Total 150 ml 100 ml . Laboratory Tests Test 12/14/16 12/14/16 12/14/16 12/15/16 03:45 10:00 23:18 05:30 White Blood Count 20.3 TH/MM3 22.9 TH/MM3 26.0 TH/MM3 24.6 TH/MM3 Red Blood Count 4.17 MIL/MM3 4.05 MIL/MM3 4.11 MIL/MM3 3.92 MIL/MM3 Hemoglobin 13.2 GM/DL 12.8 GM/DL 12.9 GM/DL 12.7 GM/DL Bedside Hemoglobin 13.3 G/DL Hematocrit 39.0 % 37.9 % 38.5 % 36.6 % Bedside Hematocrit 39.0 % Mean Corpuscular Volume 93.6 FL 93.7 FL 93.8 FL 93.3 FL Mean Corpuscular Hemoglobin 31.7 PG 31.6 PG 31.3 PG 32.4 PG Mean Corpuscular Hemoglobin 33.9 % 33.7 % 33.4 % 34.7 % Concent Red Cell Distribution Width 12.3 % 12.6 % 12.8 % 12.8 % Platelet Count 217 TH/MM3 220 TH/MM3 185 TH/MM3 178 TH/MM3 Mean Platelet Volume 7.0 FL 7.6 FL 8.2 FL 8.7 FL Neutrophils (%) (Auto) 95.4 % 97.1 % 94.0 % Lymphocytes (%) (Auto) 1.6 % 0.8 % 1.0 % Monocytes (%) (Auto) 2.0 % 1.4 % 4.9 % Eosinophils (%) (Auto) 0.0 % 0.0 % 0.0 % Basophils (%) (Auto) 1.0 % 0.7 % 0.1 % Neutrophils # (Auto) 19.3 TH/MM3 22.3 TH/MM3 23.1 TH/MM3 Lymphocytes # (Auto) 0.3 TH/MM3 0.2 TH/MM3 0.3 TH/MM3 Monocytes # (Auto) 0.4 TH/MM3 0.3 TH/MM3 1.2 TH/MM3 Eosinophils # (Auto) 0.0 TH/MM3 0.0 TH/MM3 0.0 TH/MM3 Basophils # (Auto) 0.2 TH/MM3 0.2 TH/MM3 0.0 TH/MM3 CBC Comment AUTO DIFF DIFF FINAL DIFF FINAL Differential Comment AUTO DIFF CONFIRMED Laboratory Tests Test 12/14/16 12/14/16 12/14/16 12/14/16 03:45 10:00 17:20 20:40 Bedside Sodium 133 MMOL/L Bedside Potassium 4.6 MMOL/L Bedside Chloride 98 MMOL/L Bedside Blood Urea Nitrogen 29 MG/DL Bedside Creatinine 1.0 MG/DL Bedside Glucose 156 MG/DL Total Creatine Kinase 135 U/L 75 U/L Troponin I 6.02 NG/ML 4.88 NG/ML Sodium Level 132 MEQ/L Potassium Level 4.2 MEQ/L Chloride Level 99 MEQ/L Carbon Dioxide Level 26.1 MEQ/L Anion Gap 7 MEQ/L Blood Urea Nitrogen 33 MG/DL Creatinine 1.04 MG/DL Estimat Glomerular Filtration 72 ML/MIN Rate Random Glucose 235 MG/DL Lactic Acid Level 2.7 mmol/L 2.7 mmol/L 3.4 mmol/L Calcium Level 7.1 MG/DL Protein Corrected Calcium 8.1 MG/DL Phosphorus Level 3.9 MG/DL Magnesium Level 2.1 MG/DL Total Bilirubin 1.9 MG/DL Aspartate Amino Transf 34 U/L (AST/SGOT) Alanine Aminotransferase 55 U/L (ALT/SGPT) Alkaline Phosphatase 87 U/L Total Protein 5.2 GM/DL Albumin 2.2 GM/DL Test 12/14/16 12/15/16 12/15/16 21:36 05:30 10:30 Troponin I 3.44 NG/ML 13.60 NG/ML Sodium Level 131 MEQ/L Potassium Level 4.3 MEQ/L Chloride Level 99 MEQ/L Carbon Dioxide Level 22.4 MEQ/L Anion Gap 10 MEQ/L Blood Urea Nitrogen 46 MG/DL Creatinine 1.54 MG/DL Estimat Glomerular Filtration 46 ML/MIN Rate Random Glucose 229 MG/DL Calcium Level 7.4 MG/DL Protein Corrected Calcium 8.3 MG/DL Total Bilirubin 3.2 MG/DL Aspartate Amino Transf 48 U/L (AST/SGOT) Alanine Aminotransferase 44 U/L (ALT/SGPT) Alkaline Phosphatase 75 U/L Total Protein 5.4 GM/DL Albumin 1.9 GM/DL Lactic Acid Level 2.2 mmol/L Microbiology Date/Time Procedure Status Source Growth 12/13/16 05:28 Aerobic Blood Culture - Preliminary Resulted Blood Peripheral Gram Positive Cocci 12/13/16 05:28 Anaerobic Blood Culture - Preliminary Resulted Gram Positive Cocci 12/13/16 05:33 Aerobic Blood Culture - Preliminary Resulted Blood Peripheral Strep Anginosus/Milleri 12/13/16 05:33 Anaerobic Blood Culture - Preliminary Resulted Gram Positive Cocci 12/14/16 10:40 Streptococcus pneumoniae Antigen (M - Final Complete Urine Catheterized Urine PRESUMPTIVE NEGATIVE FOR STREPTOCOCCU... 12/14/16 10:40 Legionella Antigen - Final Complete Urine Catheterized Urine PRESUMPTIVE NEGATIVE FOR LEGIONELLA P... 12/14/16 11:30 Gram Stain - Final Resulted Sputum Endotracheal 12/14/16 11:30 Sputum Culture - Preliminary Resulted Sputum Endotracheal HEAVY GROWTH NORMAL RESPIRATORY SULTANA... 12/14/16 17:20 Aerobic Blood Culture - Preliminary Resulted Blood Peripheral NO GROWTH IN 1 DAY 12/14/16 17:20 Anaerobic Blood Culture - Preliminary Resulted Blood Peripheral NO GROWTH IN 1 DAY 12/14/16 17:25 Aerobic Blood Culture - Preliminary Resulted Blood Peripheral NO GROWTH IN 1 DAY 12/14/16 17:25 Anaerobic Blood Culture - Preliminary Resulted Blood Peripheral NO GROWTH IN 1 DAY 12/15/16 06:09 Aerobic Blood Culture Received Blood Peripheral Pending 12/15/16 06:09 Anaerobic Blood Culture Received Blood Peripheral Pending Imaging Neck CTA 12/14/16 0000 Signed Impressions: Service Date/Time: Wednesday, December 14, 2016 04:20 - CONCLUSION: No significant stenoses in the carotids. Incidental note of bilateral pleural effusions and upper lobe emphysema. Aristeo Tellez MD Head CTA 12/14/16 0000 Signed Impressions: Service Date/Time: Wednesday, December 14, 2016 04:20 - CONCLUSION: Negative intracranial CTA. No evidence of vessel truncation. Aristeo Tellez MD Head CT 12/14/16 0000 Signed Impressions: Service Date/Time: Wednesday, December 14, 2016 14:56 - CONCLUSION: 1. There is a new 6 mm area low density in the left basal ganglia which could represent a recent area of ischemia. There is stable encephalomalacia in the right cerebellum. 2. Nonspecific punctate areas of air near the right cerebellum and left occipital region. These are of uncertain etiology but may be related to retrograde venous air. The air in the right cerebellar region is near the sinus. Since this is of uncertain etiology consider followup CT to assess for change. Davey Hernandez MD Chest X-Ray 12/14/16 0000 Signed Impressions: Service Date/Time: Wednesday, December 14, 2016 09:26 - CONCLUSION: Support apparatus in good position. 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 No bleed, mass effect or midline shift. Davey Nicholas MD Chest CT 12/12/16 0000 Signed Impressions: Service Date/Time: Monday, December 12, 2016 12:13 - CONCLUSION: 1. Small bilateral pleural effusions and subsegmental consolidating airspace disease in the bases. 2. Persistent small pericardial effusion. 3. No other significant abnormality. Roman Cordero MD Pericardiocentesis 12/08/16 0815 Signed Impressions: Service Date/Time: Thursday, December 08, 2016 08:43 - CONCLUSION: Uncomplicated CT-guided pericardial centesis as above. Roman Cordero MD Physical Exam GENERAL: On vent, NAD. HAs gaze to L SKIN: Cool and diaphoretic. No generalized rash, no ecchymoses and no evidence of embolic lesions. HEAD: Atraumatic. Normocephalic. No temporal wasting, or tenderness. EYES: Tat Momoli conjunctiva. No petechia or hemorrhage. Pupils equal, round and reactive to light. No scleral icterus. No injection or drainage. Orally intubated NECK: Trachea midline. Supple and not tender, no meningeal signs CARDIOVASCULAR: Irregular rate and rhythm. Soft heart sounds. No murmurs, rubs or gallops heard RESPIRATORY: Coarse breath sounds bilaterally. Decreased at the bases. ABDOMEN: Soft, non-tender, nondistended. Bowel sounds present and normoactive. No guarding. No rebound. No organomegaly. EXTREMITIES: No clubbing, cyanosis, or edema. No joint effusion. No mottled NEUROLOGICAL: Has L gaze, eyes open, not responding PSYCHIATRIC: Unable to assess LINE: No evidence of infection : Muro in place, urine looks clear Assessment & Plan Remarks IMPRESSION Strep anginosus sepsis, ?IE, ?complication of ablation - pericardial effusion C/S negative - very suspicious for IE Leukocytosis, worsening? - has (+) BC with Strep anginosus, ?endocarditis - reactive from recent arrest Recurrent atril fib?RVR, S/P ablation 11/09 Recurrent pericardial effusion, ?complication from ablation S/P arrest CVA, embolic, due to IE or thrombus from AF Respiratory failure RECOMMENDATION Continue Zosyn and Vancomycin Repeat BC Follow C/S BP support Will adjust Abx once C/S finalized Monitor progress For YOANDY D/W RN D/W Dr Beth (Field Investigator) Keely Barth MD Dec 15, 2016 14:12
[2016-12-15] MEDS ORDERED: MIDAZOLAM HCL 5 MG/ML VIAL (1 ML) ONE (14:19)
[2016-12-15] MEDS ORDERED: MIDAZOLAM HCL 5 MG/ML VIAL (1 ML) IV PUSH ONE (15:30)
--- NOTE | 2016-12-15 16:48 | ECHRPT ---
Indication: CVA/TIA CONCLUSIONS The left ventricular systolic function is mildly reduced with an estimated ejection fraction in the range of 45- 50%. Normal left atrial appendage size with no evidence of thrombus formation. There is spontaneous echo contrast present in the right atrial cavity consistent with low cardiac ou tput. Normal left atrial appendage size with no evidence of thrombus formation. Trace aortic valve regurgitation. BP: / HR: 145 Rhythm: Atrial fibrillation Technical Quality:Good Medications Complications None Proc. Components Patient was intubated. Given 1mg Versed. YOANDY probe placed and removed without c omplication. FINDINGS LEFT VENTRICLE The left ventricular systolic function is mildly reduced with an estimated ejection fraction in the range of 45- 50%. RIGHT VENTRICLE Grossly normal LEFT ATRIUM The left atrial size is upper limits of normal. RIGHT ATRIUM The right atrial size is normal. There is spontaneous echo contrast present in the right atrial cavity consistent with low cardiac ou tput. ATRIAL APPENDAGES Normal left atrial appendage size with no evidence of thrombus formation. ATRIAL SEPTUM Normal atrial septal thickness. No atrial level shunt is demonstrated by color flow Doppler interrogation. No atrial level shunt is observed with agitated saline contrast administration. AORTA The aortic root and proximal ascending aorta are normal in size on limited imaging. MITRAL VALVE Structurally normal mitral valve. Trace mitral valve regurgitation. AORTIC VALVE Trileaflet aortic valve. Aortic valve sclerosis is present. Trace aortic valve regurgitation. No aortic valve stenosis. TRICUSPID VALVE Structurally normal tricuspid valve. There is trace tricuspid valve regurgitation. No tricuspid valv e stenosis. VESSELS The pulmonary valve is not well visualized. PERICADIUM There is a small to moderate pericardial effusion present. Elpidio Beth DO (Electronically Signed) Final Date:15 December 2016 16:46
[2016-12-15] MEDS: ATORVASTATIN 40 MG TAB PO SCH (22:20)
[2016-12-15 22:41] LABS: APTT (PATIENT) 41.5 SEC (24.3-30.1)
[2016-12-16] VITALS (18 sets, daily range): BP systolic 87–118; BP diastolic 54–73; PULSE 68–113; RESP 20; TEMP 97.6–99.6; O2SAT 92–98
[2016-12-16] MEDS ORDERED: PHARMACY ORDERED LAB ONE (00:45)
[2016-12-16] MEDS: VANCOMYCIN 1,000 MG/NS 250 ML IV SCH ×2 (00:47)
[2016-12-16] MEDS: INSULIN NovoLIN REGULAR SUPPLEMENTAL SCALE SQ SCH ×6 (02:00→20:00)
[2016-12-16] MEDS: HYDROCORTISONE SOD SUCCINATE 100 MG VIAL IV PUSH SCH ×4 (02:27→20:01)
[2016-12-16] MEDS: PIPERACIL-TAZO 4.5 GM PREMIX 100 ML IV SCH ×4 (02:27→20:12)
[2016-12-16] MEDS: RESP: IPRATROPIUM 0.5 MG/2.5 ML NEB NEB SCH ×3 (03:11→08:00)
[2016-12-16] MEDS: RESP: ALBUTEROL 2.5 MG/IPRATROPIUM 0.5 MG NEB (SCH) NEB ×4 (03:12→19:37)
[2016-12-16] MEDS: CHLORHEXIDINE GLUCONATE 2 % 1 PACK (2 CLOTHS)(taper/protocol) TOPICAL SCH (03:43)
[2016-12-16] MEDS: NOREPINEPHRINE-DEXTROSE DRIP 250 ML IV SCH (05:21)
[2016-12-16] MEDS: AMIODARONE INJ 450 MG in DEXTROSE 5% IN WATE(EXCEL) INJ 241 ML IV SCH ×2 (05:21)
[2016-12-16] MEDS: HEPARIN-D5W 25,000 U/250 ML 250 ML IV SCH ×2 (05:26→16:03)
[2016-12-16] MEDS: SODIUM CHLOR 0.9% 1000 ML INJ 1,000 ML IV SCH ×2 (05:30→14:09)
[2016-12-16] MEDS: SIMETHICONE 125 MG CHEWABLE TAB PO SCH (05:30)
--- NOTE | 2016-12-16 05:37 | RADRPT ---
EXAM DATE/TIME: 12/16/2016 04:31 [facility] COMPARISON: CHEST SINGLE AP, December 14, 2016, 9:26. INDICATIONS : Shortness of breath. MEDICAL HISTORY : Diabetes mellitus type 2. Carcinoma, prostate. Afib, Gerd, Pericardiacentesis SURGICAL HISTORY : Tonsillectomy. Cardiac ablation, Left ankle sx ENCOUNTER: Subsequent ACUITY: 2 weeks PAIN SCORE: Non-responsive. LOCATION: Bilateral chest FINDINGS: ET tube tip 3 cm above the ninfa. Gastric tube tip and side-port project within the stomach. Right internal jugular catheter tip at the cavoatrial junction. Increasing consolidation left lower lung, now with complete loss of delineation left hemidiaphragm. The right lung is clear. The heart is st able in size. CONCLUSION: Interval increase in left lower lobe consolidation. Aristeo Tellez MD on December 16, 2016 at 5:35 Board Certified Radiologist. This report was verified electronically.
[2016-12-16 05:47] LABS: AUTOMATED NEUTROPHIL # 18.5 TH/MM3 (1.8-7.7); BASOPHIL % 0.2 % (0.0-2.0); HEMATOCRIT 34.1 % (39.0-51.0); HEMO FLAGS DIFF FINAL; LYMPH % 2.3 % (9.0-44.0); LYMPHOCYTE # 0.4 TH/MM3 (1.0-4.8); MEAN CELL VOLUME 92.8 FL (80.0-100.0); MEAN CORPUSCULAR HEMOGLOBIN 32.2 PG (27.0-34.0); MEAN CORPUSCULAR HGB CONC 34.7 % (32.0-36.0); NEUT % 93.5 % (16.0-70.0); PLATELET COUNT 168 TH/MM3 (150-450); RED BLOOD COUNT 3.67 MIL/MM3 (4.50-5.90); RED CELL DISTRIBUTION WIDTH 12.7 % (11.6-17.2); WHITE BLOOD COUNT 19.8 TH/MM3 (4.0-11.0)
[2016-12-16 06:03] LABS: APTT (PATIENT) 41.9 SEC (24.3-30.1)
[2016-12-16 06:19] LABS: BICARBONATE 21.5 MEQ/L (21.0-32.0); CALCIUM-PROTEIN CORRECTED 8.3 MG/DL (8.5-10.1); MAGNESIUM 3.1 MG/DL (1.5-2.5); POTASSIUM 4.2 MEQ/L (3.5-5.1); TOTAL BILIRUBIN ADULT 2.8 MG/DL (0.2-1.0)
[2016-12-16] MEDS: RESP: BUDESONIDE 0.5 MG/2 ML NEB NEB SCH ×2 (08:00→19:37)
[2016-12-16] MEDS: levETIRAcetam INJ 500 MG in SODIUM CHLORIDE 0.9% INJ 100 ML IV SCH ×2 (08:40→20:12)
[2016-12-16] MEDS: PANTOPRAZOLE SODIUM 40 MG VIAL IV PUSH SCH (08:40)
[2016-12-16] MEDS: CLOPIDOGREL 75 MG TAB PO SCH (08:41)
[2016-12-16] MEDS: COLCHICINE 0.6 MG TAB PO SCH (08:41)
[2016-12-16] MEDS: AMIODARONE 200 MG TAB PO SCH (08:41)
[2016-12-16] MEDS: ASPIRIN 81 MG CHEW TAB CHEW SCH (08:41)
[2016-12-16] MEDS: guaiFENesin E.R. 600 MG TAB PO SCH (08:42)
[2016-12-16] MEDS: CHLORHEXIDINE 0.12% (ORAL KIT) 15 ML CUP MT SCH ×3 (08:42→20:13)
--- NOTE | 2016-12-16 10:09 | HHI.CCPN ---
Subjective Remarks/Hospital Course The patient is a 66-year-old male with past medical history of chronic atrial fibrillation on Eliquis at home with multiple ablations in the past, COPD, diabetes mellitus, hypertension and gastroesophageal reflux disease. He was admitted on December [address] Mcdaniel's service for chest pain associated with shortness of breath and dyspepsia. He had chest x-ray on arrival which showed a right base infiltrate and possibility of pericardial effusion. He underwent CT-guided pericardiocentesis on December 08 with removal of 600 mL of pericardial fluid. CT scan of the chest was obtained on December 12 which showed small bilateral pleural effusion and consolidating airspace disease in the bases, in addition to persistent small pericardial effusion. No other significant abnormalities noted. During his hospital course he had an echocardiogram which showed LV systolic function low normal with EF of 50-55% and moderate pericardial effusion. Overnight the patient had acute neurologic Changes. Stroke alert was called as the patient was found to have left-sided hemiparesis and neurology service was consulted. The patient was seen by Dr. Andres and the patient was transferred from [facility] [place] [facility] [place] patient initially was scheduled to undergo TPA, however, that was placed on hold as his neurologic status was improving. In addition he had a recent pericardial drainage. The patient was on Cardizem drip overnight at 15 mg an hour for atrial fibrillation with RVR and he was on 4 liters nasal cannula. However, the patient suddenly became unresponsive with agonal breathing, hypoxic with saturation in the 60s and he was found to be in V-tach arrest. He received one round of epi bicarb and was shocked x1 with 200 joules. The patient was intubated by myself and placed on full mechanical ventilation. ABG post intubation showed a pH of 7.34, CO2 41, pAO2 281, bicarb 21, saturation of 97% on assist control ventilation rate of 20, tidal volume 600, PEEP of and 100% FIO2. His labs from this morning showed an increase of troponin from 0.02 on December 12 to 6.02 this morning. From a neuro standpoint he had a stat CT scan of the brain earlier this morning which did not show any evidence of acute intracranial process. In addition a CTA of the neck showed no significant stenosis in the carotids and CT of the brain was negative as well. When doing the code the patient became hypotensive and was started on Levophed and is currently sedated with fentanyl. Subjective: 12/15 Patient remains intubated and sedated Levophed down 12 mics. He was given Amio bolus and placed on Amio drip last night. MRI brain showed numerous small acute or subacute bilateral cerebral and right cerebellar infarcts, no masses or hemorrhage. Patient had seizure last night and received Ativan. He was placed on Heparin drip. 12/16: Tmax 97.8. The patient remains on norepinephrine infusion at 12mcgs, inability to wean. Leukocytosis beginning to resolve. However noted worsening of left lower lobe consolidation this a.m. upon chest x-ray. Patient continues on amiodarone infusion with A. fib rate controlled. Objective Vital Signs Date Time Temp Pulse Resp B/P Pulse Ox O2 Delivery O2 Flow Rate FiO2 12/16/16 08:08 94 40 12/16/16 06:00 106 12/16/16 04:00 97.8 20 90/62 87/54 12/14/16 20:00 Mechanical Ventilator 12/14/16 08:09 4.00 Intake and Output 12/15/16 12/15/16 12/16/16 08:00 16:00 00:00 Intake Total 1836 ml 1712 ml 1720 ml Output Total 275 ml 350 ml 300 ml Balance 1561 ml 1362 ml 1420 ml Result Diagram: 12/16/16 0519 12/16/16 0519 Other Results Microbiology Date/Time Procedure Status Source Growth 12/14/16 10:40 Streptococcus pneumoniae Antigen (M - Final Complete Urine Catheterized Urine PRESUMPTIVE NEGATIVE FOR STREPTOCOCCU... 12/14/16 10:40 Legionella Antigen - Final Complete Urine Catheterized Urine PRESUMPTIVE NEGATIVE FOR LEGIONELLA P... 12/14/16 11:30 Gram Stain - Final Complete Sputum Endotracheal 12/14/16 11:30 Sputum Culture - Final Complete Sputum Endotracheal HEAVY GROWTH NORMAL RESPIRATORY [facility] Imaging Last Impressions Chest X-Ray 12/16/16 0000 Signed Impressions: Service Date/Time: Friday, December 16, 2016 04:31 - CONCLUSION: Interval increase in left lower lobe consolidation. Aristeo Tellez MD Neck CTA 12/14/16 0000 Signed Impressions: Service Date/Time: Wednesday, December 14, 2016 04:20 - CONCLUSION: No significant stenoses in the carotids. Incidental note of bilateral pleural effusions and upper lobe emphysema. Aristeo Tellez MD Head CTA 12/14/16 0000 Signed Impressions: Service Date/Time: Wednesday, December 14, 2016 04:20 - CONCLUSION: Negative intracranial CTA. No evidence of vessel truncation. Aristeo Tellez MD Head CT 12/14/16 0000 Signed Impressions: Service Date/Time: Wednesday, December 14, 2016 14:56 - CONCLUSION: 1. There is a new 6 mm area low density in the left basal ganglia which could represent a recent area of ischemia. There is stable encephalomalacia in the right cerebellum. 2. Nonspecific punctate areas of air near the right cerebellum and left occipital region. These are of uncertain etiology but may be related to retrograde venous air. The air in the right cerebellar region is near the sinus. Since this is of uncertain etiology consider followup CT to assess for change. Davey Hernandez MD Brain MRI 12/14/16 0000 Signed Impressions: Service Date/Time: Wednesday, December 14, 2016 17:58 - CONCLUSION: Numerous mostly small acute or subacute bilateral cerebral and right cerebellar infarcts as described above. No bleed, mass effect or midline shift. Davey Nicholas MD Chest CT 12/12/16 0000 Signed Impressions: Service Date/Time: Monday, December 12, 2016 12:13 - CONCLUSION: 1. Small bilateral pleural effusions and subsegmental consolidating airspace disease in the bases. 2. Persistent small pericardial effusion. 3. No other significant abnormality. Roman Cordero MD Pericardiocentesis 12/08/16 0815 Signed Impressions: Service Date/Time: Thursday, December 08, 2016 08:43 - CONCLUSION: Uncomplicated CT-guided pericardial centesis as above. Roman Cordero MD Last Impressions Neck CTA 12/14/16 0000 Signed Impressions: Service Date/Time: Wednesday, December 14, 2016 04:20 - CONCLUSION: No significant stenoses in the carotids. Incidental note of bilateral pleural effusions and upper lobe emphysema. Aristeo Tellez MD Head CTA 12/14/16 0000 Signed Impressions: Service Date/Time: Wednesday, December 14, 2016 04:20 - CONCLUSION: Negative intracranial CTA. No evidence of vessel truncation. Aristeo Tellez MD Head CT 12/14/16 0000 Signed Impressions: Service Date/Time: Wednesday, December 14, 2016 14:56 - CONCLUSION: 1. There is a new 6 mm area low density in the left basal ganglia which could represent a recent area of ischemia. There is stable encephalomalacia in the right cerebellum. 2. Nonspecific punctate areas of air near the right cerebellum and left occipital region. These are of uncertain etiology but may be related to retrograde venous air. The air in the right cerebellar region is near the sinus. Since this is of uncertain etiology consider followup CT to assess for change. Davey Hernandez MD Chest X-Ray 12/14/16 0000 Signed Impressions: Service Date/Time: Wednesday, December 14, 2016 09:26 - CONCLUSION: Support apparatus in good position. 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 No bleed, mass effect or midline shift. Davey Nicholas MD Chest CT 12/12/16 0000 Signed Impressions: Service Date/Time: Monday, December 12, 2016 12:13 - CONCLUSION: 1. Small bilateral pleural effusions and subsegmental consolidating airspace disease in the bases. 2. Persistent small pericardial effusion. 3. No other significant abnormality. Roman Cordero MD Pericardiocentesis 12/08/16 0815 Signed Impressions: Service Date/Time: Thursday, December 08, 2016 08:43 - CONCLUSION: Uncomplicated CT-guided pericardial centesis as above. Roman Cordero MD Objective Remarks Infusions: Heparin 1000 units/hour Amiodarone 0.5 mg/hour Norepinephrine 12 mcgs/min Vasopressin 0.03 mics/kg/hr Fentanyl 200 mcgs/hr NS 75cc/hr BP 111/68 Pulse 94 O2 saturation 97% GENERAL: Patient is 66 yo critically ill intubated, sedated and on multiple pressors SKIN: Warm and dry. HEAD: Normocephalic. EYES: No scleral icterus. No injection or drainage. NECK: Supple, trachea midline. No JVD or lymphadenopathy. Orally intubated CARDIOVASCULAR: Irregularly irregular rate. without murmurs, gallops, or rubs. RESPIRATORY: Mechanical ventilation Breath sounds equal bilaterally. No accessory muscle use. GASTROINTESTINAL: Abdomen soft, non-tender, nondistended. MUSCULOSKELETAL: No cyanosis, or edema. Neuro: GCS 3T Sedated, intubated A/P Assessment and Plan 1. Status post V-tach arrest. 2. S/p CT-guided pericardiocentesis with removal of 600 mL pericardial fluid on December 08. 3. Atrial fibrillation with RVR 4. ACS with elevated troponins. 5. Acute CVA 6. Gram positive bacteremia 7. Septic shock 8. COPD. 9. Diabetes mellitus. 10. Leukocytosis. 11. History of prostate cancer. Plan Neuro: On Fentanyl drip for sedation. Monitor neuro status. 12/14: MRI brain: Numerous mostly small acute or subacute bilateral cerebral and right cerebellar infarcts. No bleed, mass effect or midline shift CT brain: 6 mm area low density in the left basal ganglia which could represent a recent area of ischemia. There is stable encephalomalacia in the right cerebellum. . Nonspecific punctate areas of air near the right cerebellum and left occipital region CTA head, CTA neck: negative Check EEG today, place on Keppra 500mg IV Q12, Ativan PRN for seizures Discussed with Dr. Andres and Dr. Beth regarding continuation of Heparin drip given risk of ICH hemorrhagic conversion is high will continue with full anticoagulation for now as it is likely embolic stroke Pulm: Continue with vent support and maintain sats > 92%. Bronchodilators, ICU vent bundle. CV: Continue to Wean off Levophed, monitor HR and BP maintain MAP > 65 mmHg. On stress dose steroids-50mg Q6, serial lactic acid monitoring s/p pericardiocentesis on 12/08 with 600 mL of pericardial fluid. Repeat echo 12/14: mod pericardial effusion with no pre tamponade physiology Echo 12/07: EF 50-55% YOANDY 12/16: EF 45-50%, low cardiac output, trace TR MR and AR. Small to moderate pericardial effusion Continue with ASA, Plavix, Lipitor, Heparin and Amio drips. Cards is following- Discussed with Dr. Beth. Might need YOANDY to r/o endocarditis : Monitor renal function, I&O's and place on electrolyte replacement protocol. NS at 75 mL an hour. GI: On Protonix 40 mg IV daily for GI prophylaxis. Start tube feeds- Glucerna 1.5with goal rate 45ml/hr ID: Continue abx (Vanco, Zosyn) ID is following. Monitor for signs of infections ( Fever, WBC) 12/13 BC: GPC, strep Anginosus Follow up on Blood and sputum cx from 12/14 Strep pneumonia nad Legionella urinary Ag negative 12/14 Heme: Monitor CBC and coags- patient is on Heparin drip. Endo: SSI with Accu-Chek q. 4-hour for glycemic control. GI prophylaxis with Protonix 40 mg IV daily and DVT prophylaxis with SCDs, Heparin drip Consult palliative care to assess with goals of care Lines: Right IJ CVP, Right femoral Art line placed 12/14 Patent is critically ill with resp failure, ACS, Atrial fib, septic shock, bacteremia and multiple ischemic infarcts on MRI brain. Dispo: Discussed with family(patient's children at bedside), VALIDATION TECHNICIAN at bedside. All questions answered. This patient remains critically ill with one or more organ systems which are or may become a threat to life. I have spent in excess of 37 minutes discontinuously in the care and management of this patient. This time is exclusive of procedures, and includes, but is not limited to, evaluation of the patient, review of the medical record, discussions with family, consultants, nursing staff, or respiratory therapy, and documentation in the medical record. Physician Hina Worley MD Dec 16, 2016 10:09
--- NOTE | 2016-12-16 10:47 | PD.CARD.PN ---
Subjective Subjective Remarks No events overnight Stable on vasopressor therapy Objective Medications Current Medications Medications (Trade) Dose Ordered Sig/Michelle Route Start Time Stop Time Status Last Admin (Lipitor) 40 mg HS PO 12/07/16 21:00 12/15/16 22:20 (Robitussin Liq) 200 mg Q4H PRN PO 12/08/16 12:15 Hold 12/09/16 04:38 (Cordarone) 200 mg DAILY PO 12/10/16 09:00 12/16/16 08:41 (Colchicine) 0.6 mg DAILY PO 12/11/16 09:00 12/16/16 08:41 (Imodium) 2 mg Q6H PRN PO 12/10/16 22:00 12/12/16 10:56 (Mucinex Er) 600 mg BID PO 12/11/16 21:00 Hold 12/14/16 22:18 (Phazyme Chew) 125 mg Q8HR PO 12/12/16 10:00 Hold 12/16/16 05:30 (Tylenol) 650 mg Q6H PRN PO 12/12/16 22:45 12/13/16 21:16 (Romazicon Inj) 0.2 mg Q1M PRN IV PUSH 12/13/16 06:30 Lorazepam 1 mg 1 mg Q6H PRN PO 12/13/16 08:45 12/14/16 02:45 (Cardizem Inj/NS Inj) 125 ml @ 0 mls/hr TITRATE IV 12/13/16 16:00 12/14/16 06:21 Miscellaneous Information Patient in critical care unit? Ass... [id number] .XX 12/14/16 06:30 12/14/16 06:26 (Chlorhexidine 2% Cloth) 3 pack DAILY@04 TOPICAL 12/15/16 04:00 12/19/16 04:01 12/16/16 03:43 (Chlorhexidine 2% Cloth) 3 pack UNSCH PRN TOPICAL 12/14/16 06:30 12/19/16 06:24 Chlorhexidine Gluconate 15 ml 15 ml BID@08,20 MT 12/14/16 20:00 12/16/16 08:42 Potassium Chloride 100 ml @ 50 mls/hr Q2H PRN IV 12/14/16 09:30 (KCl 20 Meq Premix Inj) 100 ml @ 50 mls/hr Q2H PRN IV 12/14/16 09:30 Potassium Bicarb/ Potassium Chloride 50 meq 50 meq UNSCH PRN PO 12/14/16 09:30 Potassium Chloride 100 ml @ 25 mls/hr UNSCH PRN IV 12/14/16 09:30 Potassium Chloride 100 ml @ 50 mls/hr Q2H PRN IV 12/14/16 09:30 (Magnesium Sulfate Inj/NS Inj) 100 ml @ 50 mls/hr UNSCH PRN IV 12/14/16 09:30 Magnesium Oxide 800 mg 800 mg UNSCH PRN PO 12/14/16 09:30 (Magnesium Sulfate Inj/NS Inj) 100 ml @ 50 mls/hr UNSCH PRN IV 12/14/16 09:30 Potassium Phosphate 2000 mg 2,000 mg Q4H PRN PO 12/14/16 09:30 (Sodium Phosphate Inj/NS 250 ml Inj) 250 ml @ 42 mls/hr UNSCH PRN IV 12/14/16 09:30 Potassium Phosphate 2000 mg 2,000 mg UNSCH PRN PO/TUBE 12/14/16 09:30 Potassium Phosphate 30 mmol/ Sodium Chloride 260 ml @ 42 mls/hr UNSCH PRN IV 12/14/16 09:30 Sodium Chloride 1,000 ml @ 75 mls/hr [id number] IV 12/14/16 10:00 12/16/16 05:30 (Zosyn 4.5 Gm Premix) 100 ml @ 200 mls/hr Q6H IV 12/14/16 10:00 12/16/16 02:27 (D50w (Vial) Inj) 50 ml UNSCH PRN IV 12/14/16 09:45 (Glucagon Inj) 1 mg UNSCH PRN OTHER 12/14/16 09:45 (NovoLIN R SUPPLEMENTAL SCALE) 1 Q4H SQ 12/14/16 10:00 12/16/16 05:29 (Protonix Inj) 40 mg Q24H IV PUSH 12/15/16 10:00 12/16/16 08:40 Hydrocortisone Sodium Succinate 50 mg 50 mg Q6H IV PUSH 12/14/16 15:00 12/16/16 08:41 Fentanyl Citrate 250 ml @ 0 mls/hr TITRATE IV 12/14/16 10:30 12/15/16 07:41 Pharmacy Profile Note 0 ml @ 0 mls/hr UNSCH OTHER 12/14/16 10:45 Vasopressin 40 units/Dextrose 100 ml @ 4.5 mls/hr [id number] IV 12/14/16 10:38 12/15/16 17:58 (Levophed-Dextrose Drip) 250 ml @ 0 mls/hr TITRATE IV 12/14/16 11:15 12/16/16 05:21 (Brethine Inj) 1 mg UNSCH PRN SQ 12/14/16 11:15 (Aspirin Chew) 324 mg DAILY CHEW 12/15/16 09:00 12/16/16 08:41 Clopidogrel Bisulfate 75 mg 75 mg DAILY PO 12/15/16 09:00 12/16/16 08:41 Amiodarone HCl 450 mg/Dextrose 250 ml @ 0 mls/hr CONTINUOUS IV 12/15/16 04:00 12/16/16 05:21 (Keppra Inj/NS Inj) 105 ml @ 420 mls/hr Q12H IV 12/15/16 10:00 12/16/16 08:40 Lorazepam 1 mg 1 mg Q4H PRN IV PUSH 12/15/16 09:45 Heparin Sodium/ Dextrose 250 ml @ 0 mls/hr TITRATE IV 12/15/16 16:00 12/16/16 05:26 (Vancomycin Inj/ NS 250 ml Inj) 262.5 ml @ 250 mls/hr Q12H IV 12/16/16 13:00 Miscellaneous Information SPECIFIC LAB TO BE DRAWN:VANCOMYCIN TROUGH DATE TO... ONCE ONCE .XX 12/18/16 00:45 12/18/16 00:46 (Tears Naturale Opth Soln) 1 drop Q4HR EACH EYE 12/16/16 09:45 (Peridex 0.12% Liq) 15 ml BID@08,20 MT 12/16/16 20:00 Vital Signs / I&O Vital Signs Date Time Temp Pulse Resp B/P Pulse Ox O2 Delivery O2 Flow Rate FiO2 12/16/16 10:33 97 40 12/16/16 10:00 91 12/16/16 08:08 94 40 12/16/16 08:00 99.6 86 20 118/69 94 117/68 12/16/16 08:00 45 12/16/16 08:00 86 12/16/16 06:00 106 16 04:32 98 45 1617 04:00 45 1617 04:00 97.8 113 20 90/62 97 87/54 1617 04:00 113 1617 02:00 111 16 00:00 110 16 00:00 110 16 00:00 45 12/16/16 00:00 97.6 110 20 95/67 96 95/60 12/15/16 22:00 110 12/15/16 21:02 97 45 12/15/16 20:00 45 12/15/16 20:00 121 12/15/16 20:00 97.7 121 20 101/80 97 105/68 15 18:30 120 20 107/77 96 103/70 15/17 18:15 145 20 107/71 95 99/72 15/17 18:00 123 12/15/16 18:00 123 20 104/76 94 103/66 15/17 17:45 117 20 93/69 95 101/65 15/17 17:30 122 20 104/66 94 101/64 15/17 17:15 125 20 102/71 93 99/63 15/17 17:00 120 20 100/75 95 100/63 15/17 16:45 123 20 95/72 93 100/61 15/17 16:30 121 20 97/70 93 101/60 15/17 16:15 119 20 95/70 94 99/60 15/17 16:00 97.9 120 20 87/65 94 93/57 15/17 16:00 120 1517 16:00 45 15/17 15:45 118 20 83/68 95 96/58 815/17 15:30 117 20 87/62 95 95/58 815/17 15:19 97 45 15/17 15:15 124 20 88/65 93 96/59 815/17 15:00 118 20 89/65 95 92/57 815/17 14:45 125 20 86/70 95 96/58 815/17 14:30 117 20 85/66 96 98/59 815/17 14:15 121 20 78/61 97 89/57 12/15/16 14:00 118 12/15/16 14:00 118 20 88/61 97 95/60 12/15/16 13:45 108 20 96/66 96 100/62 12/15/16 13:30 103 20 79/63 95 90/58 12/15/16 13:15 102 20 84/68 96 90/59 12/15/16 13:00 112 20 84/59 96 93/58 12/15/16 12:45 107 20 89/65 96 96/61 12/15/16 12:30 104 20 82/61 96 90/58 12/15/16 12:15 113 20 87/57 95 95/60 12/15/16 12:00 45 12/15/16 12:00 114 12/15/16 12:00 97.9 114 20 79/57 96 87/53 12/15/16 11:45 109 20 85/64 95 94/59 12/15/16 11:30 118 20 83/61 94 93/59 12/15/16 11:15 104 20 86/64 94 95/60 12/15/16 11:07 97 45 12/15/16 11:00 115 19 88/68 96 97/61 12/15/16 10:45 112 20 87/65 95 98/60 I/O 12/15/16 12/15/16 12/15/16 12/16/16 12/16/16 12/16/16 07:00 15:00 23:00 07:00 15:00 23:00 Intake Total 1836 ml 1712 ml 1720 ml 1995 ml Output Total 275 ml 350 ml 300 ml 300 ml Balance 1561 ml 1362 ml 1420 ml 1695 ml Intake Oral 0 ml IV Total 1736 ml 1652 ml 1496 ml 1702 ml Tube Feeding 164 ml 233 ml Other 100 ml 60 ml 60 ml 60 ml Output Urine Total 175 ml 250 ml 300 ml 300 ml Gastric Drainage Total 100 ml 100 ml Tube Feeding Residual Discard 0 ml # Bowel Movements 0 0 Physical Exam GENERAL: Intubated SKIN: Warm and dry. HEAD: Atraumatic. Normocephalic. EYES: Pupils equal and round. No scleral icterus. No injection or drainage. ENT: No nasal bleeding or discharge. Mucous membranes pink and moist. NECK: Trachea midline. No JVD. CARDIOVASCULAR: Tachycardia RESPIRATORY: No accessory muscle use. Decreased breath sounds bilaterally GASTROINTESTINAL: Abdomen soft, non-tender, nondistended. Hepatic and splenic margins not palpable. MUSCULOSKELETAL: Extremities without clubbing, cyanosis, or edema. No obvious deformities. NEUROLOGICAL: Intubated. Gag and corneal reflex positive. No reaction to threat. No reaction to pain Laboratory Laboratory Tests Test 12/15/16 12/15/16 12/16/16 21:56 23:55 05:19 Activated Partial 41.5 SEC 41.9 SEC Thromboplast Time Vancomycin Level Trough 13.6 MCG/ML White Blood Count 19.8 TH/MM3 Red Blood Count 3.67 MIL/MM3 Hemoglobin 11.8 GM/DL Hematocrit 34.1 % Mean Corpuscular Volume 92.8 FL Mean Corpuscular Hemoglobin 32.2 PG Mean Corpuscular Hemoglobin 34.7 % Concent Red Cell Distribution Width 12.7 % Platelet Count 168 TH/MM3 Mean Platelet Volume 9.8 FL Neutrophils (%) (Auto) 93.5 % Lymphocytes (%) (Auto) 2.3 % Monocytes (%) (Auto) 4.0 % Eosinophils (%) (Auto) 0.0 % Basophils (%) (Auto) 0.2 % Neutrophils # (Auto) 18.5 TH/MM3 Lymphocytes # (Auto) 0.4 TH/MM3 Monocytes # (Auto) 0.8 TH/MM3 Eosinophils # (Auto) 0.0 TH/MM3 Basophils # (Auto) 0.0 TH/MM3 CBC Comment DIFF FINAL Differential Comment Sodium Level 131 MEQ/L Potassium Level 4.2 MEQ/L Chloride Level 101 MEQ/L Carbon Dioxide Level 21.5 MEQ/L Anion Gap 9 MEQ/L Blood Urea Nitrogen 49 MG/DL Creatinine 1.22 MG/DL Estimat Glomerular Filtration 60 ML/MIN Rate Random Glucose 180 MG/DL Calcium Level 7.4 MG/DL Protein Corrected Calcium 8.3 MG/DL Phosphorus Level 3.4 MG/DL Magnesium Level 3.1 MG/DL Total Bilirubin 2.8 MG/DL Aspartate Amino Transf 38 U/L (AST/SGOT) Alanine Aminotransferase 39 U/L (ALT/SGPT) Alkaline Phosphatase 81 U/L Total Protein 5.5 GM/DL Albumin 1.7 GM/DL Assessment and Plan Problem List: (1) STEMI (ST elevation myocardial infarction) (2) COPD exacerbation (3) Tobacco abuse (4) Hypertension (5) Atrial fibrillation with RVR (6) Pericardial effusion (7) Chest pain (8) Pericardial effusion with cardiac tamponade Assessment and Plan 1) CVA with numerous ischemic areas on MRI Possible thrombus vs. endocarditis Did have positive blood cultures with Gram positive cocci YOANDY showing neither endocarditis or thrombus, but noted smoke in right atrium showing spontaneous contrast showing higher rate of thrombus formation 2) Inferolateral STEMI Not a candidate for invasive therapy with CVA/mental status change Con't medical management Placed on heparin, concern for transition of ischemia CVA to hemorrhagic, but neurology ok with heparin 3) Cardiac arrest with VT, most likely ischemic in nature 4) VDRF 5) Discussed with critical care team and nursing 6) Wean Fentanyl to see about neurologic status Problem Qualifiers (1) Chest pain: Qualified Code: R07.9 - Chest pain, unspecified type Elpidio Beth DO Dec 16, 2016 10:47
--- NOTE | 2016-12-16 12:35 | HHI.HCPN ---
Reason for visit a. To assist with evaluation and management of symptoms including: dyspnea, chest pain, malnutrition b. To assist medical decision maker(s) with: better understanding of current medical conditions; weighing benefits/burdens of medical treatment options; making medical treatment decisions. Subjective/Interval History Patient seen today to follow-up on comfort, goals with family. Stable overnight in the ICU. Fentanyl has been weaned to off for further neurological assessments today. Remains on Levophed 9 mics/minute. WBC down slightly 19.8. CXR today with worsening LLL consolidation. Patient seen in room with daughter remained at bedside. has not come in today, she indicates that is too distressed seeing him in this condition and that she is staying updated through 2 adult children. Updated on current condition, assessment, tx in place, recent diagnostics. She asks specific questions regarding neuro prognosis and level of recovery-- explore mult. areas of infarct and that is very early to have full picture of level of recovery, and that this will also be influenced by other acute conditions/course. She will update other family members.Goals remain aggressive. All questions answered to the best of my ability. They have palliative contact information. . Advance Directives Living Will: Never completed Health Care Surrogate: Never completed Objective Vital Signs Date Time Temp Pulse Resp B/P Pulse Ox O2 Delivery O2 Flow Rate FiO2 12/16/16 10:33 97 40 12/16/16 10:00 91 12/16/16 08:08 94 40 12/16/16 08:00 99.6 86 20 118/69 94 117/68 12/16/16 08:00 45 12/16/16 08:00 86 12/16/16 06:00 106 12/16/16 04:32 98 45 12/16/16 04:00 45 12/16/16 04:00 97.8 113 20 90/62 97 87/54 12/16/16 04:00 113 12/16/16 02:00 111 12/16/16 00:00 110 12/16/16 00:00 110 12/16/16 00:00 45 12/16/16 00:00 97.6 110 20 95/67 96 95/60 12/15/16 22:00 110 12/15/16 21:02 97 45 12/15/16 20:00 45 12/15/16 20:00 121 12/15/16 20:00 97.7 121 20 101/80 97 105/68 15/17 18:30 120 20 107/77 96 103/70 15/17 18:15 145 20 107/71 95 99/72 15/17 18:00 123 1517 18:00 123 20 104/76 94 103/66 15/17 17:45 117 20 93/69 95 101/65 15/17 17:30 122 20 104/66 94 101/64 15/17 17:15 125 20 102/71 93 99/63 15/17 17:00 120 20 100/75 95 100/63 15/17 16:45 123 20 95/72 93 100/61 15/17 16:30 121 20 97/70 93 101/60 15/17 16:15 119 20 95/70 94 99/60 15/17 16:00 97.9 120 20 87/65 94 93/57 15/17 16:00 120 12/15/16 16:00 45 15/17 15:45 118 20 83/68 95 96/58 15/17 15:30 117 20 87/62 95 95/58 15/17 15:19 97 45 15/17 15:15 124 20 88/65 93 96/59 15/17 15:00 118 20 89/65 95 92/57 15/17 14:45 125 20 86/70 95 96/58 15/17 14:30 117 20 85/66 96 98/59 15/17 14:15 121 20 78/61 97 89/57 15/17 14:00 118 17 14:00 118 20 88/61 97 95/60 15/17 13:45 108 20 96/66 96 100/62 15/17 13:30 103 20 79/63 95 90/58 15/17 13:15 102 20 84/68 96 90/59 15/17 13:00 112 20 84/59 96 93/58 15/17 12:45 107 20 89/65 96 96/61 15/17 12:30 104 20 82/61 96 90/58 Intake & Output 12/16/16 07:00 19:00 Intake Total 3715 ml Output Total 600 ml Balance 3115 ml Intake Oral 0 ml IV Total 3198 ml Tube Feeding 397 ml Other 120 ml Output Urine Total 600 ml Tube Feeding Residual Discard 0 ml # Bowel Movements 0 Physical Exam CONSTITUTIONAL/GENERAL: This is an adequately nourished patient, comfortable mechanical vent TUBES/LINES/DRAINS: Central line right IJ, OG tube, ET tube, Muro catheter SKIN: No jaundice, rashes, or lesions. No wounds seen anteriorly. Skin temperature warmdistal feet cool. Not diaphoretic. HEAD: Atraumatic. Normocephalic. EYES: Pupils 2 mm, slight reaction to light. No scleral icterus. No injection or drainage. Fundi not examined. ENT: Nose without bleeding or purulent drainage. Unable to fully visualize oropharynx due to ET tube, OG tube NECK: Trachea midline. Supple, nontender. No palpable thyroid enlargement or nodularity. CARDIOVASCULAR: Irregular rate and rhythm, atrial fib visualized on monitor. No JVD. Peripheral pulses symmetric-pedal pulses are very faint, feet cool to touch, slight mottling to palmar surface of foot RESPIRATORY/CHEST: Symmetric, unlabored respirations via mechanical vent. Clear to auscultation. Breath sounds equal bilaterally. GASTROINTESTINAL: Abdomen soft, and able to determine tenderness, slightly distended. No hepato-splenomegaly, or palpable masses. Bowel sounds hypoactive. GENITOURINARY: Without palpable bladder distension. Muro catheter in place. Clear yellow urine. MUSCULOSKELETAL: Extremities without clubbing, cyanosis, or edema. LYMPHATICS: No palpable cervical or supraclavicular adenopathy. NEUROLOGICAL: Sedated on mechanical vent. Does not stir to my light touch or exam. No eye opening to touch. PSYCHIATRIC: Limited exam due to clinical condition. No apparent anxiety. Diagnostic Tests Laboratory Laboratory Tests Test 12/13/16 12/13/16 12/14/16 12/14/16 12:24 23:22 03:45 06:05 Lactic Acid Level 2.6 mmol/L (0.4-2.0) Urine Color YELLOW (YELLW/STRAW) Urine Turbidity CLEAR (CLEAR) Urine pH 6.5 (5.0-8.5) Urine Specific [place] 1.023 (1.002-1.035) Urine Protein TRACE mg/dL (NEG-TRACE) Urine Glucose (UA) NEG mg/dL (NEG) Urine Ketones NEG mg/dL (NEG) Urine Occult Blood NEG (NEG) Urine Nitrite NEG (NEG) Urine Bilirubin NEG (NEG) Urine Urobilinogen LESS THAN 2.0 MG/DL (LESS THAN 2.0) Urine Leukocyte Esterase NEG (NEG) Urine RBC 1 /hpf (0-3) Urine WBC 2 /hpf (0-5) Urine Mucus FEW /lpf (OCC) Microscopic Urinalysis Comment CULT NOT INDICATED White Blood Count 20.3 TH/MM3 (4.0-11.0) Red Blood Count 4.17 MIL/MM3 (4.50-5.90) Hemoglobin 13.2 GM/DL (13.0-17.0) Bedside Hemoglobin 13.3 G/DL (12.0-17.0) Hematocrit 39.0 % (39.0-51.0) Bedside Hematocrit 39.0 % (38.0-51.0) Mean Corpuscular Volume 93.6 FL (80.0-100.0) Mean Corpuscular Hemoglobin 31.7 PG (27.0-34.0) Mean Corpuscular Hemoglobin 33.9 % Concent (32.0-36.0) Red Cell Distribution Width 12.3 % (11.6-17.2) Platelet Count 217 TH/MM3 (150-450) Mean Platelet Volume 7.0 FL (7.0-11.0) Neutrophils (%) (Auto) 95.4 % (16.0-70.0) Lymphocytes (%) (Auto) 1.6 % (9.0-44.0) Monocytes (%) (Auto) 2.0 % (0.0-8.0) Eosinophils (%) (Auto) 0.0 % (0.0-4.0) Basophils (%) (Auto) 1.0 % (0.0-2.0) Neutrophils # (Auto) 19.3 TH/MM3 (1.8-7.7) Lymphocytes # (Auto) 0.3 TH/MM3 (1.0-4.8) Monocytes # (Auto) 0.4 TH/MM3 (0-0.9) Eosinophils # (Auto) 0.0 TH/MM3 (0-0.4) Basophils # (Auto) 0.2 TH/MM3 (0-0.2) CBC Comment AUTO DIFF Differential Comment AUTO DIFF CONFIRMED Prothrombin Time 12.6 SEC (9.8-11.6) Prothromb Time International 1.1 RATIO Ratio Activated Partial 26.9 SEC Thromboplast Time (24.3-30.1) Fibrinogen 425 mg/dL (227-377) Bedside Sodium 133 MMOL/L (138-146) Bedside Potassium 4.6 MMOL/L (3.5-4.9) Bedside Chloride 98 MMOL/L (98-109) Bedside Blood Urea Nitrogen 29 MG/DL (8-26) Bedside Creatinine 1.0 MG/DL (0.8-1.3) Bedside Glucose 156 MG/DL (60-95) Total Creatine Kinase 135 U/L (39-308) Troponin I 6.02 NG/ML (0.02-0.05) Blood Type B POSITIVE Antibody Screen NEGATIVE Blood Bank Comment Nasal Screen MRSA (PCR) MRSA NOT DETECTED (NOT DETECT) Test 12/14/16 12/14/16 12/14/16 12/14/16 08:55 10:00 17:20 20:40 Blood Gas Puncture Site ART LINE Blood Gas Patient Temperature 98.6 Blood Gas HCO3 21 mmol/L (22-26) Blood Gas Base Excess -3.4 mmol/L (-2-2) Blood Gas Oxygen Saturation 97 % (90-100) Arterial Blood pH 7.34 (7.380-7.420) Arterial Blood Partial 41 mmHg (38-42) Pressure CO2 Arterial Blood Partial 281 mmHg Pressure O2 (61-120) Arterial Blood Oxygen Content 18.0 Vol % (12.0-20.0) Arterial Blood 1.2 % (0-4) Carboxyhemoglobin Arterial Blood Methemoglobin 1.0 % (0-2) Blood Gas Hemoglobin 12.7 G/DL (12.0-16.0) Oxygen Delivery Device VENTILATOR Blood Gas Ventilator Setting AC1/20/600/+5 Blood Gas Inspired Oxygen 100 % White Blood Count 22.9 TH/MM3 (4.0-11.0) Red Blood Count 4.05 MIL/MM3 (4.50-5.90) Hemoglobin 12.8 GM/DL (13.0-17.0) Hematocrit 37.9 % (39.0-51.0) Mean Corpuscular Volume 93.7 FL (80.0-100.0) Mean Corpuscular Hemoglobin 31.6 PG (27.0-34.0) Mean Corpuscular Hemoglobin 33.7 % Concent (32.0-36.0) Red Cell Distribution Width 12.6 % (11.6-17.2) Platelet Count 220 TH/MM3 (150-450) Mean Platelet Volume 7.6 FL (7.0-11.0) Neutrophils (%) (Auto) 97.1 % (16.0-70.0) Lymphocytes (%) (Auto) 0.8 % (9.0-44.0) Monocytes (%) (Auto) 1.4 % (0.0-8.0) Eosinophils (%) (Auto) 0.0 % (0.0-4.0) Basophils (%) (Auto) 0.7 % (0.0-2.0) Neutrophils # (Auto) 22.3 TH/MM3 (1.8-7.7) Lymphocytes # (Auto) 0.2 TH/MM3 (1.0-4.8) Monocytes # (Auto) 0.3 TH/MM3 (0-0.9) Eosinophils # (Auto) 0.0 TH/MM3 (0-0.4) Basophils # (Auto) 0.2 TH/MM3 (0-0.2) CBC Comment DIFF FINAL Differential Comment Sodium Level 132 MEQ/L (136-145) Potassium Level 4.2 MEQ/L (3.5-5.1) Chloride Level 99 MEQ/L (98-107) Carbon Dioxide Level 26.1 MEQ/L (21.0-32.0) Anion Gap 7 MEQ/L (5-15) Blood Urea Nitrogen 33 MG/DL (7-18) Creatinine 1.04 MG/DL (0.60-1.30) Estimat Glomerular Filtration 72 ML/MIN (>89) Rate Random Glucose 235 MG/DL (74-106) Lactic Acid Level 2.7 mmol/L 2.7 mmol/L 3.4 mmol/L (0.4-2.0) (0.4-2.0) (0.4-2.0) Calcium Level 7.1 MG/DL (8.5-10.1) Protein Corrected Calcium 8.1 MG/DL (8.5-10.1) Phosphorus Level 3.9 MG/DL (2.5-4.9) Magnesium Level 2.1 MG/DL (1.5-2.5) Total Bilirubin 1.9 MG/DL (0.2-1.0) Aspartate Amino Transf 34 U/L (15-37) (AST/SGOT) Alanine Aminotransferase 55 U/L (12-78) (ALT/SGPT) Alkaline Phosphatase 87 U/L (45-117) Total Creatine Kinase 75 U/L (39-308) Troponin I 4.88 NG/ML (0.02-0.05) Total Protein 5.2 GM/DL (6.4-8.2) Albumin 2.2 GM/DL (3.4-5.0) Test 12/14/16 12/14/16 12/15/16 12/15/16 21:36 23:18 05:30 10:30 Troponin I 3.44 NG/ML 13.60 NG/ML (0.02-0.05) (0.02-0.05) White Blood Count 26.0 TH/MM3 24.6 TH/MM3 (4.0-11.0) (4.0-11.0) Red Blood Count 4.11 MIL/MM3 3.92 MIL/MM3 (4.50-5.90) (4.50-5.90) Hemoglobin 12.9 GM/DL 12.7 GM/DL (13.0-17.0) (13.0-17.0) Hematocrit 38.5 % 36.6 % (39.0-51.0) (39.0-51.0) Mean Corpuscular Volume 93.8 FL 93.3 FL (80.0-100.0) (80.0-100.0) Mean Corpuscular Hemoglobin 31.3 PG 32.4 PG (27.0-34.0) (27.0-34.0) Mean Corpuscular Hemoglobin 33.4 % 34.7 % Concent (32.0-36.0) (32.0-36.0) Red Cell Distribution Width 12.8 % 12.8 % (11.6-17.2) (11.6-17.2) Platelet Count 185 TH/MM3 178 TH/MM3 (150-450) (150-450) Mean Platelet Volume 8.2 FL 8.7 FL (7.0-11.0) (7.0-11.0) Prothrombin Time 12.0 SEC (9.8-11.6) Prothromb Time International 1.1 RATIO Ratio Activated Partial 32.2 SEC 39.7 SEC Thromboplast Time (24.3-30.1) (24.3-30.1) Neutrophils (%) (Auto) 94.0 % (16.0-70.0) Lymphocytes (%) (Auto) 1.0 % (9.0-44.0) Monocytes (%) (Auto) 4.9 % (0.0-8.0) Eosinophils (%) (Auto) 0.0 % (0.0-4.0) Basophils (%) (Auto) 0.1 % (0.0-2.0) Neutrophils # (Auto) 23.1 TH/MM3 (1.8-7.7) Lymphocytes # (Auto) 0.3 TH/MM3 (1.0-4.8) Monocytes # (Auto) 1.2 TH/MM3 (0-0.9) Eosinophils # (Auto) 0.0 TH/MM3 (0-0.4) Basophils # (Auto) 0.0 TH/MM3 (0-0.2) CBC Comment DIFF FINAL Differential Comment Sodium Level 131 MEQ/L (136-145) Potassium Level 4.3 MEQ/L (3.5-5.1) Chloride Level 99 MEQ/L (98-107) Carbon Dioxide Level 22.4 MEQ/L (21.0-32.0) Anion Gap 10 MEQ/L (5-15) Blood Urea Nitrogen 46 MG/DL (7-18) Creatinine 1.54 MG/DL (0.60-1.30) Estimat Glomerular Filtration 46 ML/MIN (>89) Rate Random Glucose 229 MG/DL (74-106) Calcium Level 7.4 MG/DL (8.5-10.1) Protein Corrected Calcium 8.3 MG/DL (8.5-10.1) Total Bilirubin 3.2 MG/DL (0.2-1.0) Aspartate Amino Transf 48 U/L (15-37) (AST/SGOT) Alanine Aminotransferase 44 U/L (12-78) (ALT/SGPT) Alkaline Phosphatase 75 U/L (45-117) Total Protein 5.4 GM/DL (6.4-8.2) Albumin 1.9 GM/DL (3.4-5.0) Lactic Acid Level 2.2 mmol/L (0.4-2.0) Test 12/15/16 12/15/16 12/16/16 21:56 23:55 05:19 Activated Partial 41.5 SEC 41.9 SEC Thromboplast Time (24.3-30.1) (24.3-30.1) Vancomycin Level Trough 13.6 MCG/ML (5.0-10.0) White Blood Count 19.8 TH/MM3 (4.0-11.0) Red Blood Count 3.67 MIL/MM3 (4.50-5.90) Hemoglobin 11.8 GM/DL (13.0-17.0) Hematocrit 34.1 % (39.0-51.0) Mean Corpuscular Volume 92.8 FL (80.0-100.0) Mean Corpuscular Hemoglobin 32.2 PG (27.0-34.0) Mean Corpuscular Hemoglobin 34.7 % Concent (32.0-36.0) Red Cell Distribution Width 12.7 % (11.6-17.2) Platelet Count 168 TH/MM3 (150-450) Mean Platelet Volume 9.8 FL (7.0-11.0) Neutrophils (%) (Auto) 93.5 % (16.0-70.0) Lymphocytes (%) (Auto) 2.3 % (9.0-44.0) Monocytes (%) (Auto) 4.0 % (0.0-8.0) Eosinophils (%) (Auto) 0.0 % (0.0-4.0) Basophils (%) (Auto) 0.2 % (0.0-2.0) Neutrophils # (Auto) 18.5 TH/MM3 (1.8-7.7) Lymphocytes # (Auto) 0.4 TH/MM3 (1.0-4.8) Monocytes # (Auto) 0.8 TH/MM3 (0-0.9) Eosinophils # (Auto) 0.0 TH/MM3 (0-0.4) Basophils # (Auto) 0.0 TH/MM3 (0-0.2) CBC Comment DIFF FINAL Differential Comment Sodium Level 131 MEQ/L (136-145) Potassium Level 4.2 MEQ/L (3.5-5.1) Chloride Level 101 MEQ/L (98-107) Carbon Dioxide Level 21.5 MEQ/L (21.0-32.0) Anion Gap 9 MEQ/L (5-15) Blood Urea Nitrogen 49 MG/DL (7-18) Creatinine 1.22 MG/DL (0.60-1.30) Estimat Glomerular Filtration 60 ML/MIN (>89) Rate Random Glucose 180 MG/DL (74-106) Calcium Level 7.4 MG/DL (8.5-10.1) Protein Corrected Calcium 8.3 MG/DL (8.5-10.1) Phosphorus Level 3.4 MG/DL (2.5-4.9) Magnesium Level 3.1 MG/DL (1.5-2.5) Total Bilirubin 2.8 MG/DL (0.2-1.0) Aspartate Amino Transf 38 U/L (15-37) (AST/SGOT) Alanine Aminotransferase 39 U/L (12-78) (ALT/SGPT) Alkaline Phosphatase 81 U/L (45-117) Total Protein 5.5 GM/DL (6.4-8.2) Albumin 1.7 GM/DL (3.4-5.0) Result Diagram: 12/16/1651812/16/1619 Microbiology Microbiology Date/Time Procedure Status Source Growth 12/14/16 10:40 Streptococcus pneumoniae Antigen (M - Final Complete Urine Catheterized Urine PRESUMPTIVE NEGATIVE FOR STREPTOCOCCU... 12/14/16 10:40 Legionella Antigen - Final Complete Urine Catheterized Urine PRESUMPTIVE NEGATIVE FOR LEGIONELLA P... 12/14/16 11:30 Gram Stain - Final Complete Sputum Endotracheal 12/14/16 11:30 Sputum Culture - Final Complete Sputum Endotracheal HEAVY GROWTH NORMAL RESPIRATORY [place] 12/14/16 17:20 Aerobic Blood Culture - Preliminary Resulted Blood Peripheral NO GROWTH IN 2 DAYS 12/14/16 17:20 Anaerobic Blood Culture - Preliminary Resulted Blood Peripheral NO GROWTH IN 2 DAYS 12/14/16 17:25 Aerobic Blood Culture - Preliminary Resulted Blood Peripheral NO GROWTH IN 2 DAYS 12/14/16 17:25 Anaerobic Blood Culture - Preliminary Resulted Blood Peripheral NO GROWTH IN 2 DAYS 12/15/16 06:09 Aerobic Blood Culture - Preliminary Resulted Blood Peripheral NO GROWTH IN 1 DAY 12/15/16 06:09 Anaerobic Blood Culture - Preliminary Resulted Blood Peripheral NO GROWTH IN 1 DAY Procedures 12/14femoral arterial line right, right IJ central line 12/08--to interventional radiology CT-guided pericardiocentesis . Assessment and Plan Disease Oriented Problem List: (1) V-tach Comment: Status post V. tach arrest (2) Acute CVA (cerebrovascular accident) Comment: Likely embolic (3) ACS (acute coronary syndrome) (4) STEMI (ST elevation myocardial infarction) (5) Septic shock Comment: Gram-positive bacteremia (6) COPD (chronic obstructive pulmonary disease) (7) COPD exacerbation (8) Pericardial effusion (9) Atrial fibrillation with RVR (10) Lung consolidation (11) Hypertension (12) Hyponatremia (13) GERD (gastroesophageal reflux disease) (14) Hyperlipidemia (15) Leukocytosis (16) Diabetes Symptom Scale: (1) Dyspnea (2) Malnutrition (3) Pain (4) Encephalopathy (5) Constipation Pertinent Non-Medical Issues Psychosocial: Spiritual: Legal:Patient is not able to participate in decision-making due to clinical condition. Not clear if he will regain ability. No advanced directive or HCS. Per [place] statutes his would be appropriate legal proxy. Ethical issues impacting care: Important Contacts Chantal Carrasco [phone] Brother Davey Carrasco [phone] . Prognosis This patient was admitted for chest pain, findings of atrial fib RVR, status post multiple ED visits for A. fib, chest pain, status post EPS ablation last month. This admission now with pericardial effusion, sepsis, multiple small areas of infarct per brain MRI, status post V. tach arrest 12/14. Now vented in ICU. High risk for ongoing complications and setbacks though possible patient can survive. Extent of recovery not known at this point, pending clinical course. . Code Status: Full Code Plan * Legal decision maker:Patient is not able to participate in decision-making due to clinical condition. Not clear if he will regain ability. No advanced directive or HCS. Per [place] statutes his would be appropriate legal proxy. * Goals: Goals aggressive for now, including FULL CODE. Family open to ongoing discussions regarding goals of treatment as clinical course evolves. * CODE STATUS: Full code * SYMPTOMS: --Dyspnea-emergently intubated during cardiac arrest 12/14, currently breathing comfortably on mechanical vent, fentanyl off --Malnutrition- OG tube in place, tube feeding begun at low rate. Bowel sounds hypoactive. tolerating TF. Albumin 1.9. Will continue to monitor. --Chest pain-patient presented with chest pain, multiple episodes of chest pain in the past months. Has required ongoing cardiac interventions secondary to ACS, STEMI, currently appears comfortable fentanyl drip weaned off, will continue to evaluate -- encephalopathy- + mult areas small infarct per MRI, some neuro changes prior to acute cardiac event and intubation. Now on mech vent. Off fentanyl as of today, minimal neuro response today. -- constipation- last BM 12/13-- no bowel regimen in place, recommend senna scheduled daily, PRN dulcolax. * Palliative care will continue to follow during hospital course as condition evolves, to assist patient/decision-maker with understanding of medical conditions, weighing benefits/burdens of treatment options, for clarification of goals of treatment. Additionally will assist with any symptoms of palliative concern Attestation To help prompt me to consider important information that might be impacting today's encounter and assessment, information from prior notes written by myself or my colleagues may have been "brought forward" into today's note. My signature on this note, however, is an attestation that I personally performed the exam, history, and/or decision-making noted today, and, unless otherwise indicated, the interactions with patient, family, and staff as well as the review of records all occurred today. I also attest that the listed assessment and stated plan reflect my best clinical judgment today based on the combination of historical information, prior notes, and today's exam/ interactions. When time spent is documented, it refers only to time spent today by the signer, or if indicated, combined time spent today by collaborating physician/nurse practitioner. Radha Bailey Dec 16, 2016 12:35
--- NOTE | 2016-12-16 13:01 | MG ---
cc: INA COTA M.D. Lab No: [id number] Date: 12/15/16 Age: 66 Sex: M Race: MEDICATIONS: Fentanyl, amiodarone, Lipitor. DESCRIPTION: 66 year-old man. A-fib. Numerous infarcts bilaterally. There is some small sharply contoured waves over the right posterior head region in the beginning. The patient is noted to have eyes deviated up. These occur with phase reversal over the P3 or left parietal head region. At times sharply contoured. Semi periodic a small PLED. This occurs throughout much of the recording, although does not appear to spread throughout the rest of the brain, appears to be fairly focal. Hyperventilation not performed. Photic stimulation is performed without significant posterior driving. IMPRESSION: Left posterior temporal epileptiform activity, fairly constant and a left posterior temporal lesion should be ruled out. No electroencephalographic were noted throughout this recording but this certainly could be a seizure focus and was quite active. Clinical correlation is needed. MD TERRI Howard/KEIRY /5:34 PM /12:50 PM
[2016-12-16] MEDS: VANCOMYCIN INJ 1,250 MG in SODIUM CHLOR 0.9% 250 ML INJ 250 ML IV SCH (14:02)
[2016-12-16] MEDS: ARTIFICIAL TEARS OPTH SOLN 15 ML BTL EACH EYE SCH ×2 (16:01→20:13)
[2016-12-16] MEDS: VASOPRESSIN INJ 40 UNITS in DEXTROSE 5% IN WATER 100ML INJ 98 ML IV SCH ×2 (17:12)
[2016-12-16] MEDS: ATORVASTATIN 40 MG TAB PO SCH (20:01)
--- NOTE | 2016-12-16 21:26 | HHI.PR ---
Review/Management Diagnosis multiple bilateral embolic strokes SZ Plan recheck MRI brain Wednesday Diagnosis/Plan: Daily Summary 12/[address] Steven yest after pt became unrespoionsive later in the night had a seizure spoke to RN this am and just spoke to dr Steven can start keppra, eeg, continue heparin echo not suggestive of vegetations, likely shower embolism from thrombus/a fib prognosis guarded Subjective Subjective Comments No acute events reported No additional SZ. Active Medications Current Medications Medications (Trade) Dose Ordered Sig/Michelle Route Start Time Stop Time Status Last Admin (Lipitor) 40 mg HS PO 12/07/16 21:00 12/16/16 20:01 (Robitussin Liq) 200 mg Q4H PRN PO 12/08/16 12:15 Hold 12/09/16 04:38 (Cordarone) 200 mg DAILY PO 12/10/16 09:00 12/16/16 08:41 (Colchicine) 0.6 mg DAILY PO 12/11/16 09:00 12/16/16 08:41 (Imodium) 2 mg Q6H PRN PO 12/10/16 22:00 12/12/16 10:56 (Mucinex Er) 600 mg BID PO 12/11/16 21:00 Hold 12/14/16 22:18 (Phazyme Chew) 125 mg Q8HR PO 12/12/16 10:00 Hold 12/16/16 05:30 (Tylenol) 650 mg Q6H PRN PO 12/12/16 22:45 12/13/16 21:16 (Romazicon Inj) 0.2 mg Q1M PRN IV PUSH 12/13/16 06:30 Lorazepam 1 mg 1 mg Q6H PRN PO 12/13/16 08:45 12/14/16 02:45 (Cardizem Inj/NS Inj) 125 ml @ 0 mls/hr TITRATE IV 12/13/16 16:00 12/14/16 06:21 Miscellaneous Information Patient in critical care unit? Ass... Q361D .XX 12/14/16 06:30 12/14/16 06:26 (Chlorhexidine 2% Cloth) 3 pack DAILY@04 TOPICAL 12/15/16 04:00 12/19/16 04:01 12/16/16 03:43 (Chlorhexidine 2% Cloth) 3 pack UNSCH PRN TOPICAL 12/14/16 06:30 12/19/16 06:24 Chlorhexidine Gluconate 15 ml 15 ml BID@08,20 MT 12/14/16 20:00 12/16/16 20:13 Potassium Chloride 100 ml @ 50 mls/hr Q2H PRN IV 12/14/16 09:30 (KCl 20 Meq Premix Inj) 100 ml @ 50 mls/hr Q2H PRN IV 12/14/16 09:30 Potassium Bicarb/ Potassium Chloride 50 meq 50 meq UNSCH PRN PO 12/14/16 09:30 Potassium Chloride 100 ml @ 25 mls/hr UNSCH PRN IV 12/14/16 09:30 Potassium Chloride 100 ml @ 50 mls/hr Q2H PRN IV 12/14/16 09:30 (Magnesium Sulfate Inj/NS Inj) 100 ml @ 50 mls/hr UNSCH PRN IV 12/14/16 09:30 Magnesium Oxide 800 mg 800 mg UNSCH PRN PO 12/14/16 09:30 (Magnesium Sulfate Inj/NS Inj) 100 ml @ 50 mls/hr UNSCH PRN IV 12/14/16 09:30 Potassium Phosphate 2000 mg 2,000 mg Q4H PRN PO 12/14/16 09:30 (Sodium Phosphate Inj/NS 250 ml Inj) 250 ml @ 42 mls/hr UNSCH PRN IV 12/14/16 09:30 Potassium Phosphate 2000 mg 2,000 mg UNSCH PRN PO/TUBE 12/14/16 09:30 Potassium Phosphate 30 mmol/ Sodium Chloride 260 ml @ 42 mls/hr UNSCH PRN IV 12/14/16 09:30 Sodium Chloride 1,000 ml @ 75 mls/hr [id number] IV 12/14/16 10:00 12/16/16 14:09 (Zosyn 4.5 Gm Premix) 100 ml @ 200 mls/hr Q6H IV 12/14/16 10:00 12/16/16 20:12 (D50w (Vial) Inj) 50 ml UNSCH PRN IV 12/14/16 09:45 (Glucagon Inj) 1 mg UNSCH PRN OTHER 12/14/16 09:45 (NovoLIN R SUPPLEMENTAL SCALE) 1 Q4H SQ 12/14/16 10:00 12/16/16 20:00 (Protonix Inj) 40 mg Q24H IV PUSH 12/15/16 10:00 12/16/16 08:40 Hydrocortisone Sodium Succinate 50 mg 50 mg Q6H IV PUSH 12/14/16 15:00 12/16/16 20:01 Fentanyl Citrate 250 ml @ 0 mls/hr TITRATE IV 12/14/16 10:30 Hold 12/15/16 07:41 Pharmacy Profile Note 0 ml @ 0 mls/hr UNSCH OTHER 12/14/16 10:45 Vasopressin 40 units/Dextrose 100 ml @ 4.5 mls/hr [id number] IV 12/14/16 10:38 12/16/16 17:12 (Levophed-Dextrose Drip) 250 ml @ 0 mls/hr TITRATE IV 12/14/16 11:15 12/16/16 05:21 (Brethine Inj) 1 mg UNSCH PRN SQ 12/14/16 11:15 (Aspirin Chew) 324 mg DAILY CHEW 12/15/16 09:00 12/16/16 08:41 Clopidogrel Bisulfate 75 mg 75 mg DAILY PO 12/15/16 09:00 12/16/16 08:41 Amiodarone HCl 450 mg/Dextrose 250 ml @ 0 mls/hr CONTINUOUS IV 12/15/16 04:00 12/16/16 05:21 (Keppra Inj/NS Inj) 105 ml @ 420 mls/hr Q12H IV 12/15/16 10:00 12/16/16 20:12 Lorazepam 1 mg 1 mg Q4H PRN IV PUSH 12/15/16 09:45 Heparin Sodium/ Dextrose 250 ml @ 0 mls/hr TITRATE IV 12/15/16 16:00 12/16/16 16:03 (Vancomycin Inj/ NS 250 ml Inj) 262.5 ml @ 250 mls/hr Q12H IV 12/16/16 13:00 12/16/16 14:02 Miscellaneous Information SPECIFIC LAB TO BE DRAWN:VANCOMYCIN TROUGH DATE TO... ONCE ONCE .XX 12/18/16 00:45 12/18/16 00:46 (Tears Naturale Opth Soln) 1 drop Q4HR EACH EYE 12/16/16 09:45 12/16/16 20:13 (Peridex 0.12% Liq) 15 ml BID@08,20 MT 8/16/17 20:00 12/16/16 20:00 Allergies Allergies Coded Allergies monosodium glutamate (Unverified Allergy, Intermediate, Hives, 12/15/16) Exam I&O / VS 12/15/16 12/15/16 12/16/16 14:59 22:59 06:59 Intake Total 1712 ml 1720 ml 1995 ml Output Total 350 ml 300 ml 300 ml Balance 1362 ml 1420 ml 1695 ml Intake Oral 0 ml IV Total 1652 ml 1496 ml 1702 ml Tube Feeding 164 ml 233 ml Other 60 ml 60 ml 60 ml Output Urine Total 250 ml 300 ml 300 ml Gastric Drainage Total 100 ml Tube Feeding Residual Discard 0 ml # Bowel Movements 0 0 Vital Signs Date Time Temp Pulse Resp B/P Pulse Ox O2 Delivery O2 Flow Rate FiO2 12/16/16 20:00 68 12/16/16 20:00 45 12/16/16 20:00 98.0 68 20 103/65 93 106/58 12/16/16 19:37 93 40 12/16/16 18:00 68 12/16/16 16:00 76 12/16/16 16:00 99.1 76 20 102/63 94 103/59 12/16/16 16:00 45 12/16/16 15:35 93 40 12/16/16 14:00 79 12/16/16 13:22 45 12/16/16 13:05 94 40 12/16/16 12:00 82 12/16/16 12:00 45 12/16/16 12:00 99.5 82 20 116/73 92 116/71 12/16/16 10:33 97 40 12/16/16 10:00 91 12/16/16 08:08 94 40 12/16/16 08:00 99.6 86 20 118/69 94 117/68 12/16/16 08:00 45 12/16/16 08:00 86 12/16/16 06:00 106 12/16/16 04:32 98 45 12/16/16 04:00 45 12/16/16 04:00 97.8 113 20 90/62 97 87/54 12/16/16 04:00 113 12/16/16 02:00 111 12/16/16 00:00 110 12/16/16 00:00 110 12/16/16 00:00 45 12/16/16 00:00 97.6 110 20 95/67 96 95/60 12/15/16 22:00 110 Exam Comments nonresponsive PERRL EOM intact to occulocephalics. Motor -- no focal deficits, no spontaneous limb movement Objective Micro and Labs Laboratory Tests Test 12/15/16 12/15/16 12/16/16 12/16/16 21:56 23:55 05:19 13:10 Activated Partial 41.5 41.9 Thromboplast Time Vancomycin Level Trough 13.6 White Blood Count 19.8 Red Blood Count 3.67 Hemoglobin 11.8 Hematocrit 34.1 Mean Corpuscular Volume 92.8 Mean Corpuscular Hemoglobin 32.2 Mean Corpuscular Hemoglobin 34.7 Concent Red Cell Distribution Width 12.7 Platelet Count 168 Mean Platelet Volume 9.8 Neutrophils (%) (Auto) 93.5 Lymphocytes (%) (Auto) 2.3 Monocytes (%) (Auto) 4.0 Eosinophils (%) (Auto) 0.0 Basophils (%) (Auto) 0.2 Neutrophils # (Auto) 18.5 Lymphocytes # (Auto) 0.4 Monocytes # (Auto) 0.8 Eosinophils # (Auto) 0.0 Basophils # (Auto) 0.0 CBC Comment DIFF FINAL Differential Comment Sodium Level 131 Potassium Level 4.2 Chloride Level 101 Carbon Dioxide Level 21.5 Anion Gap 9 Blood Urea Nitrogen 49 Creatinine 1.22 Estimat Glomerular Filtration 60 Rate Random Glucose 180 Calcium Level 7.4 Protein Corrected Calcium 8.3 Phosphorus Level 3.4 Magnesium Level 3.1 Total Bilirubin 2.8 Aspartate Amino Transf 38 (AST/SGOT) Alanine Aminotransferase 39 (ALT/SGPT) Alkaline Phosphatase 81 Total Protein 5.5 Albumin 1.7 Lactic Acid Level 2.7 Date/Time Procedure Status Source Growth 12/15/16 06:09 Aerobic Blood Culture - Preliminary Resulted Blood Peripheral NO GROWTH IN 1 DAY 12/15/16 06:09 Anaerobic Blood Culture - Preliminary Resulted Blood Peripheral NO GROWTH IN 1 DAY 12/14/16 11:30 Gram Stain - Final Complete Sputum Endotracheal 12/14/16 11:30 Sputum Culture - Final Complete Sputum Endotracheal HEAVY GROWTH NORMAL RESPIRATORY SULTANA 12/14/16 10:40 Streptococcus pneumoniae Antigen (M - Final Complete Urine Catheterized Urine PRESUMPTIVE NEGATIVE FOR STREPTOCOCCU... 12/14/16 10:40 Legionella Antigen - Final Complete Urine Catheterized Urine PRESUMPTIVE NEGATIVE FOR LEGIONELLA P... 12/13/16 05:33 Aerobic Blood Culture - Final Complete Blood Peripheral Viridans Streptococcus Grp Staph Sp Coagulase Negative 12/13/16 05:33 Anaerobic Blood Culture - Final Complete Viridans Streptococcus Grp Staph Sp Coagulase Negative Arun Loaiza PhD Dec 16, 2016 21:26
[2016-12-17] VITALS (18 sets, daily range): BP systolic 90–197; BP diastolic 54–92; PULSE 69–127; RESP 15–24; TEMP 98.4–100.4; O2SAT 92–96
[2016-12-17] MEDS: ARTIFICIAL TEARS OPTH SOLN 15 ML BTL EACH EYE SCH ×6 (01:26→21:31)
[2016-12-17] MEDS: HYDROCORTISONE SOD SUCCINATE 100 MG VIAL IV PUSH SCH ×4 (01:26→21:29)
[2016-12-17] MEDS: VANCOMYCIN INJ 1,250 MG in SODIUM CHLOR 0.9% 250 ML INJ 250 ML IV SCH ×2 (01:29→14:30)
[2016-12-17] MEDS: INSULIN NovoLIN REGULAR SUPPLEMENTAL SCALE SQ SCH ×6 (01:33→21:29)
[2016-12-17] MEDS: RESP: ALBUTEROL 2.5 MG/IPRATROPIUM 0.5 MG NEB (SCH) NEB ×4 (01:33→19:46)
[2016-12-17] MEDS: CHLORHEXIDINE GLUCONATE 2 % 1 PACK (2 CLOTHS)(taper/protocol) TOPICAL SCH (02:17)
[2016-12-17] MEDS: PIPERACIL-TAZO 4.5 GM PREMIX 100 ML IV SCH ×4 (03:18→21:30)
[2016-12-17 05:01] LABS: BLOOD GAS BASE EXCESS -3.9 mmol/L (-2-2); BLOOD GAS CARBOXYHEMOGLOBIN 1.2 % (0-4); BLOOD GAS HCO3 20 mmol/L (22-26); BLOOD GAS METHEMOGLOBIN 0.9 % (0-2); BLOOD GAS O2 HGB SATURATION 94 % (90-100); BLOOD GAS OXYGEN CONTENT 22.4 Vol % (12.0-20.0); BLOOD GAS PCO2 31 mmHg (38-42); BLOOD GAS PO2 85 mmHg (61-120); BLOOD GAS TOTAL HGB 16.9 G/DL (12.0-16.0); TEMP CORR TO 98.6
[2016-12-17 05:03] LABS: CRITICAL VALUE NO; OXYGEN DEVICE VENTILATOR
[2016-12-17 05:04] LABS: DRAW SITE ALINE; FIO2 50 %; STAT NO
--- NOTE | 2016-12-17 06:01 | RADRPT ---
EXAM DATE/TIME: 12/17/2016 03:32 [facility] COMPARISON: CHEST SINGLE AP, December 16, 2016, 4:31. INDICATIONS : Shortness of breath, possible pulmonary disease. MEDICAL HISTORY : Diabetes mellitus type II. Carcinoma, prostatic. Gastroesophageal reflux disease. A-Fib SURGICAL HISTORY : Tonsillectomy. Cardiac ablation ENCOUNTER: Subsequent ACUITY: 2 weeks PAIN SCORE: Non-responsive. LOCATION: Bilateral chest FINDINGS: Endotracheal tube tip 1.4 cm above the ninfa. An internal jugular catheter tip at the cavoatrial ju nction. Gastric tube traverses the [id number]. Persisting consolidation in the left lower lung w ith possible elevation left hemidiaphragm. The right lung is clear. No pneumothorax. CONCLUSION: Persistent left lower lobe consolidation. ET tube tip is close to the ninfa and needs to be withdra wn 1 cm. Aristeo Tellez MD on December 17, 2016 at 5:59 Board Certified Radiologist. This report was verified electronically.
[2016-12-17 06:20] LABS: HEMATOCRIT 30.6 % (39.0-51.0); MEAN CELL VOLUME 92.9 FL (80.0-100.0); MEAN CORPUSCULAR HEMOGLOBIN 32.1 PG (27.0-34.0); MEAN CORPUSCULAR HGB CONC 34.5 % (32.0-36.0); PLATELET COUNT 137 TH/MM3 (150-450); RED BLOOD COUNT 3.29 MIL/MM3 (4.50-5.90); RED CELL DISTRIBUTION WIDTH 13.1 % (11.6-17.2); REVIEW FLAG FINAL; WHITE BLOOD COUNT 15.3 TH/MM3 (4.0-11.0)
[2016-12-17 06:33] LABS: APTT (PATIENT) 34.9 SEC (24.3-30.1)
[2016-12-17 06:44] LABS: BICARBONATE 22.4 MEQ/L (21.0-32.0)
[2016-12-17] MEDS: RESP: BUDESONIDE 0.5 MG/2 ML NEB NEB SCH (07:48)
[2016-12-17] MEDS: CHLORHEXIDINE 0.12% (ORAL KIT) 15 ML CUP MT SCH ×3 (08:00→21:33)
[2016-12-17] MEDS: PANTOPRAZOLE SODIUM 40 MG VIAL IV PUSH SCH (09:37)
[2016-12-17] MEDS: CLOPIDOGREL 75 MG TAB PO SCH (09:38)
[2016-12-17] MEDS: levETIRAcetam INJ 500 MG in SODIUM CHLORIDE 0.9% INJ 100 ML IV SCH ×2 (09:39→21:28)
[2016-12-17] MEDS: ASPIRIN 81 MG CHEW TAB CHEW SCH (09:39)
[2016-12-17] MEDS: AMIODARONE 200 MG TAB PO SCH (09:41)
[2016-12-17] MEDS: COLCHICINE 0.6 MG TAB PO SCH (09:41)
[2016-12-17] MEDS: VASOPRESSIN INJ 40 UNITS in DEXTROSE 5% IN WATER 100ML INJ 98 ML IV SCH ×2 (14:30)
--- NOTE | 2016-12-17 14:37 | HHI.PR ---
Review/Management Diagnosis multiple bilateral embolic strokes SZ Plan recheck MRI brain Wednesday Diagnosis/Plan: Daily Summary 12/[address] Steven yest after pt became unrespoionsive later in the night had a seizure spoke to RN this am and just spoke to dr Steven can start keppra, eeg, continue heparin echo not suggestive of vegetations, likely shower embolism from thrombus/a fib prognosis guarded Subjective Subjective Comments No acute events reported opening eyes to command when fentanyl held Active Medications Current Medications Medications (Trade) Dose Ordered Sig/Michelle Route Start Time Stop Time Status Last Admin (Lipitor) 40 mg HS PO 12/07/16 21:00 12/16/16 20:01 (Robitussin Liq) 200 mg Q4H PRN PO 12/08/16 12:15 Hold 12/09/16 04:38 (Cordarone) 200 mg DAILY PO 12/10/16 09:00 12/17/16 09:41 (Colchicine) 0.6 mg DAILY PO 12/11/16 09:00 12/17/16 09:41 (Imodium) 2 mg Q6H PRN PO 12/10/16 22:00 12/12/16 10:56 (Mucinex Er) 600 mg BID PO 12/11/16 21:00 Hold 12/14/16 22:18 (Phazyme Chew) 125 mg Q8HR PO 12/12/16 10:00 Hold 12/16/16 05:30 (Tylenol) 650 mg Q6H PRN PO 12/12/16 22:45 12/13/16 21:16 (Romazicon Inj) 0.2 mg Q1M PRN IV PUSH 12/13/16 06:30 Lorazepam 1 mg 1 mg Q6H PRN PO 12/13/16 08:45 12/14/16 02:45 (Cardizem Inj/NS Inj) 125 ml @ 0 mls/hr TITRATE IV 12/13/16 16:00 12/14/16 06:21 Miscellaneous Information Patient in critical care unit? Ass... Q361D .XX 12/14/16 06:30 12/14/16 06:26 (Chlorhexidine 2% Cloth) 3 pack DAILY@04 TOPICAL 12/15/16 04:00 12/19/16 04:01 12/17/16 02:17 (Chlorhexidine 2% Cloth) 3 pack UNSCH PRN TOPICAL 12/14/16 06:30 12/19/16 06:24 Chlorhexidine Gluconate 15 ml 15 ml BID@08,20 MT 12/14/16 20:00 12/17/16 09:43 Potassium Chloride 100 ml @ 50 mls/hr Q2H PRN IV 12/14/16 09:30 (KCl 20 Meq Premix Inj) 100 ml @ 50 mls/hr Q2H PRN IV 12/14/16 09:30 Potassium Bicarb/ Potassium Chloride 50 meq 50 meq UNSCH PRN PO 12/14/16 09:30 Potassium Chloride 100 ml @ 25 mls/hr UNSCH PRN IV 12/14/16 09:30 Potassium Chloride 100 ml @ 50 mls/hr Q2H PRN IV 12/14/16 09:30 (Magnesium Sulfate Inj/NS Inj) 100 ml @ 50 mls/hr UNSCH PRN IV 12/14/16 09:30 Magnesium Oxide 800 mg 800 mg UNSCH PRN PO 12/14/16 09:30 (Magnesium Sulfate Inj/NS Inj) 100 ml @ 50 mls/hr UNSCH PRN IV 12/14/16 09:30 Potassium Phosphate 2000 mg 2,000 mg Q4H PRN PO 12/14/16 09:30 (Sodium Phosphate Inj/NS 250 ml Inj) 250 ml @ 42 mls/hr UNSCH PRN IV 12/14/16 09:30 12/17/16 09:40 Potassium Phosphate 2000 mg 2,000 mg UNSCH PRN PO/TUBE 12/14/16 09:30 Potassium Phosphate 30 mmol/ Sodium Chloride 260 ml @ 42 mls/hr UNSCH PRN IV 12/14/16 09:30 Sodium Chloride 1,000 ml @ 75 mls/hr [id number] IV 12/14/16 10:00 12/16/16 14:09 (Zosyn 4.5 Gm Premix) 100 ml @ 200 mls/hr Q6H IV 12/14/16 10:00 12/17/16 14:29 (D50w (Vial) Inj) 50 ml UNSCH PRN IV 12/14/16 09:45 (Glucagon Inj) 1 mg UNSCH PRN OTHER 12/14/16 09:45 (NovoLIN R SUPPLEMENTAL SCALE) 1 Q4H SQ 12/14/16 10:00 12/17/16 11:50 (Protonix Inj) 40 mg Q24H IV PUSH 12/15/16 10:00 12/17/16 09:37 Hydrocortisone Sodium Succinate 50 mg 50 mg Q6H IV PUSH 12/14/16 15:00 12/17/16 14:31 Fentanyl Citrate 250 ml @ 0 mls/hr TITRATE IV 12/14/16 10:30 Hold 12/15/16 07:41 Pharmacy Profile Note 0 ml @ 0 mls/hr UNSCH OTHER 12/14/16 10:45 Vasopressin 40 units/Dextrose 100 ml @ 4.5 mls/hr [id number] IV 12/14/16 10:38 12/17/16 14:30 (Levophed-Dextrose Drip) 250 ml @ 0 mls/hr TITRATE IV 12/14/16 11:15 12/16/16 05:21 (Brethine Inj) 1 mg UNSCH PRN SQ 12/14/16 11:15 (Aspirin Chew) 324 mg DAILY CHEW 12/15/16 09:00 12/17/16 09:39 Clopidogrel Bisulfate 75 mg 75 mg DAILY PO 12/15/16 09:00 12/17/16 09:38 Amiodarone HCl 450 mg/Dextrose 250 ml @ 0 mls/hr CONTINUOUS IV 12/15/16 04:00 12/16/16 05:21 (Keppra Inj/NS Inj) 105 ml @ 420 mls/hr Q12H IV 12/15/16 10:00 12/17/16 09:39 Lorazepam 1 mg 1 mg Q4H PRN IV PUSH 12/15/16 09:45 Heparin Sodium/ Dextrose 250 ml @ 0 mls/hr TITRATE IV 12/15/16 16:00 12/16/16 16:03 (Vancomycin Inj/ NS 250 ml Inj) 262.5 ml @ 250 mls/hr Q12H IV 12/16/16 13:00 12/17/16 14:30 Miscellaneous Information SPECIFIC LAB TO BE DRAWN:VANCOMYCIN TROUGH DATE TO... ONCE ONCE .XX 12/18/16 00:45 12/18/16 00:46 (Tears Naturale Opth Soln) 1 drop Q4HR EACH EYE 12/16/16 09:45 12/17/16 14:30 (Peridex 0.12% Liq) 15 ml BID@08,20 MT 12/16/16 20:00 12/16/16 20:00 Allergies Allergies Coded Allergies monosodium glutamate (Unverified Allergy, Intermediate, Hives, 12/15/16) Exam I&O / VS 12/16/16 12/16/16 12/17/16 15:00 23:00 07:00 Intake Total 1861 ml 1075 ml 2183 ml Output Total 400 ml 500 ml 600 ml Balance 1461 ml 575 ml 1583 ml IV Total 1488 ml 785 ml 1835 ml Tube Feeding 253 ml 290 ml 288 ml Other 120 ml 60 ml Output Urine Total 400 ml 500 ml 600 ml Tube Feeding Residual Discard 0 ml 0 ml # Bowel Movements 0 0 Vital Signs Date Time Temp Pulse Resp B/P Pulse Ox O2 Delivery O2 Flow Rate FiO2 12/17/16 12:17 96 50 12/17/16 07:48 96 50 12/17/16 06:19 45 12/17/16 06:00 74 12/17/16 04:14 94 40 12/17/16 04:00 85 12/17/16 04:00 45 12/17/16 04:00 98.4 85 20 159/80 92 146/67 12/17/16 02:00 69 12/17/16 01:33 95 40 12/17/16 00:00 69 12/17/16 00:00 98.4 69 20 110/72 94 115/58 12/17/16 00:00 45 12/16/16 22:00 68 12/16/16 20:00 68 12/16/16 20:00 45 12/16/16 20:00 98.0 68 20 103/65 93 106/58 12/16/16 19:37 93 40 12/16/16 18:00 68 12/16/16 16:00 76 12/16/16 16:00 99.1 76 20 102/63 94 103/59 12/16/16 16:00 45 12/16/16 15:35 93 40 Exam Comments nonresponsive PERRL EOM intact to occulocephalics. Motor -- no focal deficits, no spontaneous limb movement Objective Micro and Labs Laboratory Tests Test 12/17/16 12/17/16 04:46 05:12 Blood Gas Puncture Site JAIRON Blood Gas Patient Temperature 98.6 Blood Gas HCO3 20 Blood Gas Base Excess -3.9 Blood Gas Oxygen Saturation 94 Arterial Blood pH 7.43 Arterial Blood Partial 31 Pressure CO2 Arterial Blood Partial 85 Pressure O2 Arterial Blood Oxygen Content 22.4 Arterial Blood 1.2 Carboxyhemoglobin Arterial Blood Methemoglobin 0.9 Blood Gas Hemoglobin 16.9 Oxygen Delivery Device VENTILATOR Blood Gas Ventilator Setting SEE COMMENT Blood Gas Inspired Oxygen 50 White Blood Count 15.3 Red Blood Count 3.29 Hemoglobin 10.6 Hematocrit 30.6 Mean Corpuscular Volume 92.9 Mean Corpuscular Hemoglobin 32.1 Mean Corpuscular Hemoglobin 34.5 Concent Red Cell Distribution Width 13.1 Platelet Count 137 Mean Platelet Volume 9.2 Activated Partial 34.9 Thromboplast Time Sodium Level 136 Potassium Level 4.0 Chloride Level 103 Carbon Dioxide Level 22.4 Anion Gap 11 Blood Urea Nitrogen 44 Creatinine 0.86 Estimat Glomerular Filtration 90 Rate Random Glucose 156 Calcium Level 7.6 Phosphorus Level 1.7 Magnesium Level 3.0 Date/Time Procedure Status Source Growth 12/15/16 06:09 Aerobic Blood Culture - Preliminary Resulted Blood Peripheral NO GROWTH IN 2 DAYS 12/15/16 06:09 Anaerobic Blood Culture - Preliminary Resulted Blood Peripheral NO GROWTH IN 2 DAYS 12/14/16 11:30 Gram Stain - Final Complete Sputum Endotracheal 12/14/16 11:30 Sputum Culture - Final Complete Sputum Endotracheal HEAVY GROWTH NORMAL RESPIRATORY SULTANA 12/14/16 10:40 Streptococcus pneumoniae Antigen (M - Final Complete Urine Catheterized Urine PRESUMPTIVE NEGATIVE FOR STREPTOCOCCU... 12/14/16 10:40 Legionella Antigen - Final Complete Urine Catheterized Urine PRESUMPTIVE NEGATIVE FOR LEGIONELLA P... 12/13/16 05:33 Aerobic Blood Culture - Final Complete Blood Peripheral Viridans Streptococcus Grp Staph Sp Coagulase Negative 12/13/16 05:33 Anaerobic Blood Culture - Final Complete Viridans Streptococcus Grp Staph Sp Coagulase Negative Arun Loaiza PhD Dec 17, 2016 14:37
[2016-12-17] MEDS ORDERED: MANNITOL 12.5 GM/50 ML VIAL IV ONE (15:30)
[2016-12-17] MEDS ORDERED: fentaNYL 2,500 MCG/NS 250 ML IV SCH (15:30)
--- NOTE | 2016-12-17 15:37 | HHI.IDPN ---
Subjective Subjective Remarks Patient is a 66-year-old male, who has had problem with recurrent atrial fibrillation with RVR, presented to the hospital complaining of chest pain, shortness of breath, and some heartburn. He has had multiple admissions for A. fib with RVR. In November 09, he underwent ablation. Despite that he continued to have problem rapid atrial fibrillation. On this admission he came in for the same problem, and he had an echo which showed moderate pericardial effusion. He underwent pericardiocentesis done by IR. The fluid looks exudative. He was seen by cardiology again, and he was being evaluated for repeat ablation. His had continued problem with chest pain on top of his atrial arrhythmia. Early this morning stroke alert was called since she was noted to have left-sided weakness. He was transferred to the intensive care unit, was being evaluated for thrombolytic therapy. Patient subsequently had cardiac arrest, and ended up getting intubated. He is currently on sedation. He is on Levophed. His monitor shows controlled rate. His white count went up to above 20,000, an infectious disease consultation has been requested to evaluate the patient. The pericardial fluid culture is negative. 2 blood cultures were done yesterday and those are now reported as growing strep anginosus. He had another echocardiogram today and again showing moderate pericardial effusion. Highest temperature has been about 99.8. He is currently on the vent. Notes reviewed Sedated on the vent Looks dyspneic BP running high Temps ok Brain MRI with mulitple infarct YOANDY no vegetation BC with Viridans Strep and Coag Neg Staph No new (+) BC Sputum normal melecio CXR LLL consolidation Creatinine better Antibiotics Vanco Zosyn Lines RIJ TLC R groin A line Past Medical History Paroxysmal atrial fibrillation Hypertension DM Hyperlipidemia GERD Erectile dysfunction History of prostate cancer, received radiation therapy Hx of tobacco use Past Surgical History Repair of left ankle fracture following orthopedic injuries secondary to a fall EPS with ablation performed by Dr. Diamond (11/09/16) Allergies: Coded Allergies: monosodium glutamate (Unverified Allergy, Intermediate, Hives, 12/15/16) Objective . Vital Signs Date Time Temp Pulse Resp B/P Pulse Ox O2 Delivery O2 Flow Rate FiO2 12/17/16 12:17 96 50 12/17/16 07:48 96 50 12/17/16 06:19 45 12/17/16 06:00 74 12/17/16 04:14 94 40 12/17/16 04:00 85 12/17/16 04:00 45 12/17/16 04:00 98.4 85 20 159/80 92 146/67 12/17/16 02:00 69 12/17/16 01:33 95 40 12/17/16 00:00 69 12/17/16 00:00 98.4 69 20 110/72 94 115/58 12/17/16 00:00 45 12/16/16 22:00 68 12/16/16 20:00 68 12/16/16 20:00 45 12/16/16 20:00 98.0 68 20 103/65 93 106/58 12/16/16 19:37 93 40 12/16/16 18:00 68 12/16/16 16:00 76 12/16/16 16:00 99.1 76 20 102/63 94 103/59 12/16/16 16:00 45 12/16/16 15:35 93 40 12/16/16 12/16/16 12/17/16 15:00 23:00 07:00 Intake Total 1861 ml 1075 ml 2183 ml Output Total 400 ml 500 ml 600 ml Balance 1461 ml 575 ml 1583 ml IV Total 1488 ml 785 ml 1835 ml Tube Feeding 253 ml 290 ml 288 ml Other 120 ml 60 ml Output Urine Total 400 ml 500 ml 600 ml Tube Feeding Residual Discard 0 ml 0 ml # Bowel Movements 0 0 . Laboratory Tests Test 12/16/16 12/17/16 05:19 05:12 White Blood Count 19.8 TH/MM3 15.3 TH/MM3 Red Blood Count 3.67 MIL/MM3 3.29 MIL/MM3 Hemoglobin 11.8 GM/DL 10.6 GM/DL Hematocrit 34.1 % 30.6 % Mean Corpuscular Volume 92.8 FL 92.9 FL Mean Corpuscular Hemoglobin 32.2 PG 32.1 PG Mean Corpuscular Hemoglobin 34.7 % 34.5 % Concent Red Cell Distribution Width 12.7 % 13.1 % Platelet Count 168 TH/MM3 137 TH/MM3 Mean Platelet Volume 9.8 FL 9.2 FL Neutrophils (%) (Auto) 93.5 % Lymphocytes (%) (Auto) 2.3 % Monocytes (%) (Auto) 4.0 % Eosinophils (%) (Auto) 0.0 % Basophils (%) (Auto) 0.2 % Neutrophils # (Auto) 18.5 TH/MM3 Lymphocytes # (Auto) 0.4 TH/MM3 Monocytes # (Auto) 0.8 TH/MM3 Eosinophils # (Auto) 0.0 TH/MM3 Basophils # (Auto) 0.0 TH/MM3 CBC Comment DIFF FINAL Differential Comment Laboratory Tests Test 12/16/16 12/16/16 12/17/16 05:19 13:10 05:12 Sodium Level 131 MEQ/L 136 MEQ/L Potassium Level 4.2 MEQ/L 4.0 MEQ/L Chloride Level 101 MEQ/L 103 MEQ/L Carbon Dioxide Level 21.5 MEQ/L 22.4 MEQ/L Anion Gap 9 MEQ/L 11 MEQ/L Blood Urea Nitrogen 49 MG/DL 44 MG/DL Creatinine 1.22 MG/DL 0.86 MG/DL Estimat Glomerular Filtration 60 ML/MIN 90 ML/MIN Rate Random Glucose 180 MG/DL 156 MG/DL Calcium Level 7.4 MG/DL 7.6 MG/DL Protein Corrected Calcium 8.3 MG/DL Phosphorus Level 3.4 MG/DL 1.7 MG/DL Magnesium Level 3.1 MG/DL 3.0 MG/DL Total Bilirubin 2.8 MG/DL Aspartate Amino Transf 38 U/L (AST/SGOT) Alanine Aminotransferase 39 U/L (ALT/SGPT) Alkaline Phosphatase 81 U/L Total Protein 5.5 GM/DL Albumin 1.7 GM/DL Lactic Acid Level 2.7 mmol/L Microbiology Date/Time Procedure Status Source Growth 12/14/16 17:20 Aerobic Blood Culture - Preliminary Resulted Blood Peripheral NO GROWTH IN 3 DAYS 12/14/16 17:20 Anaerobic Blood Culture - Preliminary Resulted Blood Peripheral NO GROWTH IN 3 DAYS 12/14/16 17:25 Aerobic Blood Culture - Preliminary Resulted Blood Peripheral NO GROWTH IN 3 DAYS 12/14/16 17:25 Anaerobic Blood Culture - Preliminary Resulted Blood Peripheral NO GROWTH IN 3 DAYS 12/15/16 06:09 Aerobic Blood Culture - Preliminary Resulted Blood Peripheral NO GROWTH IN 2 DAYS 12/15/16 06:09 Anaerobic Blood Culture - Preliminary Resulted Blood Peripheral NO GROWTH IN 2 DAYS Imaging Neck CTA 12/14/16 0000 Signed Impressions: Service Date/Time: Wednesday, December 14, 2016 04:20 - CONCLUSION: No significant stenoses in the carotids. Incidental note of bilateral pleural effusions and upper lobe emphysema. Aristeo Tellez MD Head CTA 12/14/16 0000 Signed Impressions: Service Date/Time: Wednesday, December 14, 2016 04:20 - CONCLUSION: Negative intracranial CTA. No evidence of vessel truncation. Aristeo Tellez MD Head CT 12/14/16 0000 Signed Impressions: Service Date/Time: Wednesday, December 14, 2016 14:56 - CONCLUSION: 1. There is a new 6 mm area low density in the left basal ganglia which could represent a recent area of ischemia. There is stable encephalomalacia in the right cerebellum. 2. Nonspecific punctate areas of air near the right cerebellum and left occipital region. These are of uncertain etiology but may be related to retrograde venous air. The air in the right cerebellar region is near the sinus. Since this is of uncertain etiology consider followup CT to assess for change. Davey Hernandez MD Chest X-Ray 12/14/16 0000 Signed Impressions: Service Date/Time: Wednesday, December 14, 2016 09:26 - CONCLUSION: Support apparatus in good position. 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 No bleed, mass effect or midline shift. Davey Nicholas MD Chest CT 12/12/16 0000 Signed Impressions: Service Date/Time: Monday, December 12, 2016 12:13 - CONCLUSION: 1. Small bilateral pleural effusions and subsegmental consolidating airspace disease in the bases. 2. Persistent small pericardial effusion. 3. No other significant abnormality. Roman Cordero MD Pericardiocentesis 12/08/16 0815 Signed Impressions: Service Date/Time: Thursday, December 08, 2016 08:43 - CONCLUSION: Uncomplicated CT-guided pericardial centesis as above. Roman Cordero MD Physical Exam GENERAL: On vent, dyspneic. Sedated SKIN: Cool and diaphoretic. No generalized rash, no ecchymoses and no evidence of embolic lesions. HEAD: Atraumatic. Normocephalic. No temporal wasting, or tenderness. EYES: Export conjunctiva. No petechia or hemorrhage. Pupils equal, round and reactive to light. No scleral icterus. No injection or drainage. Orally intubated NECK: Trachea midline. Supple and not tender, no meningeal signs CARDIOVASCULAR: Irregular rate and rhythm. Soft heart sounds. No murmurs, rubs or gallops heard RESPIRATORY: Coarse breath sounds bilaterally. Decreased at the bases. ABDOMEN: Soft, non-tender, nondistended. Bowel sounds present and normoactive. No guarding. No rebound. No organomegaly. EXTREMITIES: No clubbing, cyanosis, or edema. No joint effusion. 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
[2016-12-17] MEDS ORDERED: PROPOFOL 1000 MG/100 ML INJ 100 ML ONE (15:38)
--- NOTE | 2016-12-17 15:45 | HHI.CCPN ---
Subjective Remarks/Hospital Course The patient is a 66-year-old male with past medical history of chronic atrial fibrillation on Eliquis at home with multiple ablations in the past, COPD, diabetes mellitus, hypertension and gastroesophageal reflux disease. He was admitted on December [address] Mcdaniel's service for chest pain associated with shortness of breath and dyspepsia. He had chest x-ray on arrival which showed a right base infiltrate and possibility of pericardial effusion. He underwent CT-guided pericardiocentesis on December 08 with removal of 600 mL of pericardial fluid. CT scan of the chest was obtained on December 12 which showed small bilateral pleural effusion and consolidating airspace disease in the bases, in addition to persistent small pericardial effusion. No other significant abnormalities noted. During his hospital course he had an echocardiogram which showed LV systolic function low normal with EF of 50-55% and moderate pericardial effusion. Overnight the patient had acute neurologic Changes. Stroke alert was called as the patient was found to have left-sided hemiparesis and neurology service was consulted. The patient was seen by Dr. Andres and the patient was transferred from [facility] to the [facility]. The patient initially was scheduled to undergo TPA, however, that was placed on hold as his neurologic status was improving. In addition he had a recent pericardial drainage. The patient was on Cardizem drip overnight at 15 mg an hour for atrial fibrillation with RVR and he was on 4 liters nasal cannula. However, the patient suddenly became unresponsive with agonal breathing, hypoxic with saturation in the 60s and he was found to be in V-tach arrest. He received one round of epi bicarb and was shocked x1 with 200 joules. The patient was intubated by myself and placed on full mechanical ventilation. ABG post intubation showed a pH of 7.34, CO2 41, pAO2 281, bicarb 21, saturation of 97% on assist control ventilation rate of 20, tidal volume 600, PEEP of and 100% FIO2. His labs from this morning showed an increase of troponin from 0.02 on December 12 to 6.02 this morning. From a neuro standpoint he had a stat CT scan of the brain earlier this morning which did not show any evidence of acute intracranial process. In addition a CTA of the neck showed no significant stenosis in the carotids and CT of the brain was negative as well. When doing the code the patient became hypotensive and was started on Levophed and is currently sedated with fentanyl. Subjective: 12/15 Patient remains intubated and sedated Levophed down 12 mics. He was given Amio bolus and placed on Amio drip last night. MRI brain showed numerous small acute or subacute bilateral cerebral and right cerebellar infarcts, no masses or hemorrhage. Patient had seizure last night and received Ativan. He was placed on Heparin drip. 12/16: Tmax 97.8. The patient remains on norepinephrine infusion at 12mcgs, inability to wean. Leukocytosis beginning to resolve. However noted worsening of left lower lobe consolidation this a.m. upon chest x-ray. Patient continues on amiodarone infusion with A. fib rate controlled. 12/17: No acute issues overnight. Patient has been weaned off vasopressin. Heparin infusion continues. Patient was weaned off of fentanyl for the last 24 hours stat EEG was performed. Fentanyl infusion resumed at low dose, for ventilator synchrony. This afternoon the patient was noted to have abruptly severe hypertension 237/111 with a heart rate of 106. Fentanyl bolus infusion increased, mannitol 25 g IV push given, propofol infusion added. Stat CT brain pending. Objective Vital Signs Date Time Temp Pulse Resp B/P Pulse Ox O2 Delivery O2 Flow Rate FiO2 12/17/16 12:17 96 50 12/17/16 06:00 74 12/17/16 04:00 98.4 20 159/80 146/67 12/14/16 20:00 Mechanical Ventilator 12/14/16 08:09 4.00 Intake and Output 12/16/16 12/16/16 12/17/16 08:00 16:00 00:00 Intake Total 1995 ml 1861 ml 1075 ml Output Total 300 ml 400 ml 500.0 ml Balance 1695 ml 1461 ml 575.0 ml Result Diagram: 12/17/16 0512 12/17/16 0512 Other Results Laboratory Tests Test 12/17/16 04:46 Blood Gas Puncture Site JAIRON Blood Gas Patient Temperature 98.6 Blood Gas HCO3 20 mmol/L (22-26) Blood Gas Base Excess -3.9 mmol/L (-2-2) Blood Gas Oxygen Saturation 94 % (90-100) Arterial Blood pH 7.43 (7.380-7.420) Arterial Blood Partial 31 mmHg (38-42) Pressure CO2 Arterial Blood Partial 85 mmHg Pressure O2 (61-120) Arterial Blood Oxygen Content 22.4 Vol % (12.0-20.0) Arterial Blood 1.2 % (0-4) Carboxyhemoglobin Arterial Blood Methemoglobin 0.9 % (0-2) Blood Gas Hemoglobin 16.9 G/DL (12.0-16.0) Oxygen Delivery Device VENTILATOR Blood Gas Ventilator Setting SEE COMMENT Blood Gas Inspired Oxygen 50 % Imaging Last Impressions Chest X-Ray 12/16/16 0000 Signed Impressions: Service Date/Time: Friday, December 16, 2016 04:31 - CONCLUSION: Interval increase in left lower lobe consolidation. Aristeo Tellez MD Neck CTA 12/14/16 0000 Signed Impressions: Service Date/Time: Wednesday, December 14, 2016 04:20 - CONCLUSION: No significant stenoses in the carotids. Incidental note of bilateral pleural effusions and upper lobe emphysema. Aristeo Tellez MD Head CTA 12/14/16 0000 Signed Impressions: Service Date/Time: Wednesday, December 14, 2016 04:20 - CONCLUSION: Negative intracranial CTA. No evidence of vessel truncation. Aristeo Tellez MD Head CT 12/14/16 0000 Signed Impressions: Service Date/Time: Wednesday, December 14, 2016 14:56 - CONCLUSION: 1. There is a new 6 mm area low density in the left basal ganglia which could represent a recent area of ischemia. There is stable encephalomalacia in the right cerebellum. 2. Nonspecific punctate areas of air near the right cerebellum and left occipital region. These are of uncertain etiology but may be related to retrograde venous air. The air in the right cerebellar region is near the sinus. Since this is of uncertain etiology consider followup CT to assess for change. Davey Hernandez MD Brain MRI 12/14/16 0000 Signed Impressions: Service Date/Time: Wednesday, December 14, 2016 17:58 - CONCLUSION: Numerous mostly small acute or subacute bilateral cerebral and right cerebellar infarcts as described above. No bleed, mass effect or midline shift. Davey Nicholas MD Chest CT 12/12/16 0000 Signed Impressions: Service Date/Time: Monday, December 12, 2016 12:13 - CONCLUSION: 1. Small bilateral pleural effusions and subsegmental consolidating airspace disease in the bases. 2. Persistent small pericardial effusion. 3. No other significant abnormality. Roman Cordero MD Pericardiocentesis [id number]/08/[id number] Signed Impressions: Service Date/Time: Thursday, December 08, 2016 08:43 - CONCLUSION: Uncomplicated CT-guided pericardial centesis as above. Roman Cordero MD Last Impressions Neck CTA 12/14/16 Signed Impressions: Service Date/Time: Wednesday, December 14, 2016 04:20 - CONCLUSION: No significant stenoses in the carotids. Incidental note of bilateral pleural effusions and upper lobe emphysema. Aristeo Tellez MD Head CTA 12/14/16 Signed Impressions: Service Date/Time: Wednesday, December 14, 2016 04:20 - CONCLUSION: Negative intracranial CTA. No evidence of vessel truncation. Aristeo Tellez MD Head CT 12/14/16 Signed Impressions: Service Date/Time: Wednesday, December 14, 2016 14:56 - CONCLUSION: 1. There is a new 6 mm area low density in the left basal ganglia which could represent a recent area of ischemia. There is stable encephalomalacia in the right cerebellum. 2. Nonspecific punctate areas of air near the right cerebellum and left occipital region. These are of uncertain etiology but may be related to retrograde venous air. The air in the right cerebellar region is near the sinus. Since this is of uncertain etiology consider followup CT to assess for change. Davey Hernandez MD Chest X-Ray 12/14/16 Signed Impressions: Service Date/Time: Wednesday, December 14, 2016 09:26 - CONCLUSION: Support apparatus in good position. Ang Vera MD FACR Brain MRI 12/14/16 Signed Impressions: Service Date/Time: Wednesday, December 14, 2016 17:58 - CONCLUSION: Numerous mostly small acute or subacute bilateral cerebral and right cerebellar infarcts as described above. No bleed, mass effect or midline shift. Davey Nicholas MD Chest CT 12/12/16 Signed Impressions: Service Date/Time: Monday, December 12, 2016 12:13 - CONCLUSION: 1. Small bilateral pleural effusions and subsegmental consolidating airspace disease in the bases. 2. Persistent small pericardial effusion. 3. No other significant abnormality. Roman Coredro MD Pericardiocentesis [id number]/[id number] Signed Impressions: Service Date/Time: Thursday, December 08, 2016 08:43 - CONCLUSION: Uncomplicated CT-guided pericardial centesis as above. Roman Cordero MD Objective Remarks Infusions: Heparin 1000 units/hour Fentanyl 250 mcgs/hr NS 75cc/hr BP 154/75 -> 237/111 Pulse 74-> 105 O2 saturation 97% GENERAL: Patient is 66 yo critically ill intubated, and sedated SKIN: Warm and dry. HEAD: Normocephalic. EYES: No scleral icterus. No injection or drainage. NECK: Supple, trachea midline. No JVD or lymphadenopathy. Orally intubated CARDIOVASCULAR: Irregularly irregular rate. without murmurs, gallops, or rubs. RESPIRATORY: Mechanical ventilation Breath sounds equal bilaterally. No accessory muscle use. GASTROINTESTINAL: Abdomen soft, non-tender, nondistended. MUSCULOSKELETAL: No cyanosis, or edema. Neuro: GCS 3T Sedated, intubated-fentanyl infusion A/P Assessment and Plan 1. Status post V-tach arrest. 2. S/p CT-guided pericardiocentesis with removal of 600 mL pericardial fluid on December 08. 3. Atrial fibrillation with RVR 4. ACS with elevated troponins. 5. Acute CVA 6. Gram positive bacteremia 7. Septic shock 8. COPD. 9. Diabetes mellitus. 10. Leukocytosis. 11. History of prostate cancer. Plan Neuro: On Fentanyl drip for sedation and ventilator synchrony, resumed. Monitor neuro status. 12/17 Patient on fentanyl infusion for 24 hours, stat EEG performed. Patient was noted to open on a spontaneously. 12/14: MRI brain: Numerous mostly small acute or subacute bilateral cerebral and right cerebellar infarcts. No bleed, mass effect or midline shift CT brain: 6 mm area low density in the left basal ganglia which could represent a recent area of ischemia. There is stable encephalomalacia in the right cerebellum. . Nonspecific punctate areas of air near the right cerebellum and left occipital region CTA head, CTA neck: negative Check EEG today, place on Keppra 500mg IV Q12, Ativan PRN for seizures Discussed with Dr. Andres and Dr. Beth regarding continuation of Heparin drip given risk of ICH hemorrhagic conversion is high will continue with full anticoagulation for now as it is likely embolic stroke 12/17: Stat repeat CT pending, Mannitol 25 g Pulm: Continue with vent support and maintain sats > 92%. Bronchodilators, ICU vent bundle. CV:Monitor HR and BP maintain MAP > 65 mmHg. On stress dose steroids-50mg Q6, serial lactic acid monitoring s/p pericardiocentesis on 12/08 with 600 mL of pericardial fluid. Repeat echo 12/14: mod pericardial effusion with no pre tamponade physiology Echo 12/07: EF 50-55% YOANDY 12/16: EF 45-50%, low cardiac output, trace TR MR and AR. Small to moderate pericardial effusion Continue with ASA, Plavix, Lipitor, Heparin and Amio drips. Cards is following- Discussed with Dr. Beth. Might need YOANDY to r/o endocarditis 12/16- Levophed, Sy-Synephrine discontinued. 12/17 -vasopressin discontinued : Monitor renal function, I&O's and place on electrolyte replacement protocol. NS at 75 mL an hour. GI: On Protonix 40 mg IV daily for GI prophylaxis. Start tube feeds- Glucerna 1.5with goal rate 45ml/hr ID: Continue abx (Vanco, Zosyn) ID is following. Monitor for signs of infections ( Fever, WBC) 12/13 BC: GPC, strep Anginosus Follow up on Blood and sputum cx from 12/14 Strep pneumonia nad Legionella urinary Ag negative 12/14 Leukocytosis resolving WBC 19->15, continue to monitor Heme: Monitor CBC and coags- patient is on Heparin drip. Endo: SSI with Accu-Chek q. 4-hour for glycemic control. GI prophylaxis with Protonix 40 mg IV daily and DVT prophylaxis with SCDs, Heparin drip Consult palliative care to assess with goals of care Lines: Right IJ CVP, Right femoral Art line placed 12/14 Patent is critically ill with resp failure, ACS, Atrial fib, septic shock, bacteremia and multiple ischemic infarcts on MRI brain. Dispo: Discussed with family(patient's children at bedside), HABILITATION SPECIALIST at bedside. All questions answered. This patient remains critically ill with one or more organ systems which are or may become a threat to life. I have spent in excess of 35 minutes discontinuously in the care and management of this patient. This time is exclusive of procedures, and includes, but is not limited to, evaluation of the patient, review of the medical record, discussions with family, consultants, nursing staff, or respiratory therapy, and documentation in the medical record. Physician Hina Worley MD Dec 17, 2016 15:45
--- NOTE | 2016-12-17 16:05 | HHI.HCPN ---
Reason for visit a. To assist with evaluation and management of symptoms including: dyspnea, seizure, malnutrition b. To assist medical decision maker(s) with: better understanding of current medical conditions; weighing benefits/burdens of medical treatment options; making medical treatment decisions. . Subjective/Interval History Patient seen and examined in ICU to follow-up on comfort, goals with family. Daughter and son at bedside. Patient remains on mech vent, FiO2 50%. Afebrile. Diaphoretic. WBC 15.3, hemoglobin 10.6, platelets 137. Albumin 1.7. Repeat blood cultures 12/14 and negative to date. Chest xray persistent left lower lobe consolidation. Patient with labored respirations, hypertenison and tachycardia after bath and repositioning. . Family/friend interactions Spoke with son and daughter at bedside. They requested I come back when mother ( pts ) arrives later today. Later came back to room, daughter at bedside. is standing outside the room. seems to have a simple understanding of current medical condition. She wants to talk about pre-hospitalization and does not seem to want to talk about current medical problems. We agreed to meet with and children on 12/18 after repeat EEG and MRI brain are available. Family is very appreciative. . Advance Directives Living Will: Never completed Health Care Surrogate: Never completed Advance Directive Specifics Significant change in goals: FULL CODE. Family meeting planned 12/18/16 after repeat EEG and MRI available. . Objective Vital Signs Date Time Temp Pulse Resp B/P Pulse Ox O2 Delivery O2 Flow Rate FiO2 12/17/16 12:17 96 50 12/17/16 07:48 96 50 12/17/16 06:19 45 12/17/16 06:00 74 12/17/16 04:14 94 40 12/17/16 04:00 85 12/17/16 04:00 45 12/17/16 04:00 98.4 85 20 159/80 92 146/67 12/17/16 02:00 69 12/17/16 01:33 95 40 12/17/16 00:00 69 12/17/16 00:00 98.4 69 20 110/72 94 115/58 12/17/16 00:00 45 12/16/16 22:00 68 12/16/16 20:00 68 12/16/16 20:00 45 12/16/16 20:00 98.0 68 20 103/65 93 106/58 12/16/16 19:37 93 40 12/16/16 18:00 68 12/16/16 16:00 76 12/16/16 16:00 99.1 76 20 102/63 94 103/59 12/16/16 16:00 45 Intake & Output 12/17/16 12/17/16 07:00 19:00 Intake Total 3258 ml Output Total 1100.0 ml Balance 2158.0 ml IV Total 2620 ml Tube Feeding 578 ml Other 60 ml Output Urine Total 1100 ml Tube Feeding Residual Discard 0 ml # Bowel Movements 0 Physical Exam CONSTITUTIONAL/GENERAL: This is an adequately nourished patient, comfortable mechanical vent TUBES/LINES/DRAINS: Central line right IJ, OG tube, ET tube, Muro catheter SKIN: No jaundice, rashes, or lesions. No wounds seen anteriorly. Skin temperature warmdistal feet cool. Diaphoretic. EYES: eyes closed. ENT: Nose without bleeding or purulent drainage. Unable to fully visualize oropharynx due to ET tube, OG tube NECK: Trachea midline. CARDIOVASCULAR: Irregular rate and rhythm, atrial fib visualized on monitor. Peripheral pulses symmetric-pedal pulses are very faint, feet cool to touch, slight mottling to palmar surface of foot RESPIRATORY/CHEST: Symmetric, labored respirations via mechanical vent. Clear to auscultation. Breath sounds equal bilaterally. GASTROINTESTINAL: Abdomen soft, and able to determine tenderness, slightly distended. Bowel sounds hypoactive. GENITOURINARY: Without palpable bladder distension. Muro catheter in place. MUSCULOSKELETAL: Extremities without clubbing, cyanosis, or edema. NEUROLOGICAL: Sedated on mechanical vent. Does not stir to my light touch or exam. No eye opening to touch. PSYCHIATRIC: Limited exam due to clinical condition. No apparent anxiety. . Diagnostic Tests Laboratory Laboratory Tests Test 12/14/16 12/14/16 12/14/16 12/14/16 17:20 20:40 21:36 23:18 Lactic Acid Level 2.7 mmol/L 3.4 mmol/L (0.4-2.0) (0.4-2.0) Troponin I 3.44 NG/ML (0.02-0.05) White Blood Count 26.0 TH/MM3 (4.0-11.0) Red Blood Count 4.11 MIL/MM3 (4.50-5.90) Hemoglobin 12.9 GM/DL (13.0-17.0) Hematocrit 38.5 % (39.0-51.0) Mean Corpuscular Volume 93.8 FL (80.0-100.0) Mean Corpuscular Hemoglobin 31.3 PG (27.0-34.0) Mean Corpuscular Hemoglobin 33.4 % Concent (32.0-36.0) Red Cell Distribution Width 12.8 % (11.6-17.2) Platelet Count 185 TH/MM3 (150-450) Mean Platelet Volume 8.2 FL (7.0-11.0) Prothrombin Time 12.0 SEC (9.8-11.6) Prothromb Time International 1.1 RATIO Ratio Activated Partial 32.2 SEC Thromboplast Time (24.3-30.1) Test 12/15/16 12/15/16 12/15/16 12/15/16 05:30 10:30 21:56 23:55 White Blood Count 24.6 TH/MM3 (4.0-11.0) Red Blood Count 3.92 MIL/MM3 (4.50-5.90) Hemoglobin 12.7 GM/DL (13.0-17.0) Hematocrit 36.6 % (39.0-51.0) Mean Corpuscular Volume 93.3 FL (80.0-100.0) Mean Corpuscular Hemoglobin 32.4 PG (27.0-34.0) Mean Corpuscular Hemoglobin 34.7 % Concent (32.0-36.0) Red Cell Distribution Width 12.8 % (11.6-17.2) Platelet Count 178 TH/MM3 (150-450) Mean Platelet Volume 8.7 FL (7.0-11.0) Neutrophils (%) (Auto) 94.0 % (16.0-70.0) Lymphocytes (%) (Auto) 1.0 % (9.0-44.0) Monocytes (%) (Auto) 4.9 % (0.0-8.0) Eosinophils (%) (Auto) 0.0 % (0.0-4.0) Basophils (%) (Auto) 0.1 % (0.0-2.0) Neutrophils # (Auto) 23.1 TH/MM3 (1.8-7.7) Lymphocytes # (Auto) 0.3 TH/MM3 (1.0-4.8) Monocytes # (Auto) 1.2 TH/MM3 (0-0.9) Eosinophils # (Auto) 0.0 TH/MM3 (0-0.4) Basophils # (Auto) 0.0 TH/MM3 (0-0.2) CBC Comment DIFF FINAL Differential Comment Activated Partial 39.7 SEC 41.5 SEC Thromboplast Time (24.3-30.1) (24.3-30.1) Sodium Level 131 MEQ/L (136-145) Potassium Level 4.3 MEQ/L (3.5-5.1) Chloride Level 99 MEQ/L (98-107) Carbon Dioxide Level 22.4 MEQ/L (21.0-32.0) Anion Gap 10 MEQ/L (5-15) Blood Urea Nitrogen 46 MG/DL (7-18) Creatinine 1.54 MG/DL (0.60-1.30) Estimat Glomerular Filtration 46 ML/MIN (>89) Rate Random Glucose 229 MG/DL (74-106) Calcium Level 7.4 MG/DL (8.5-10.1) Protein Corrected Calcium 8.3 MG/DL (8.5-10.1) Total Bilirubin 3.2 MG/DL (0.2-1.0) Aspartate Amino Transf 48 U/L (15-37) (AST/SGOT) Alanine Aminotransferase 44 U/L (12-78) (ALT/SGPT) Alkaline Phosphatase 75 U/L (45-117) Total Protein 5.4 GM/DL (6.4-8.2) Albumin 1.9 GM/DL (3.4-5.0) Lactic Acid Level 2.2 mmol/L (0.4-2.0) Troponin I 13.60 NG/ML (0.02-0.05) Vancomycin Level Trough 13.6 MCG/ML (5.0-10.0) Test 12/16/16 12/16/16 12/17/16 12/17/16 05:19 13:10 04:46 05:12 White Blood Count 19.8 TH/MM3 15.3 TH/MM3 (4.0-11.0) (4.0-11.0) Red Blood Count 3.67 MIL/MM3 3.29 MIL/MM3 (4.50-5.90) (4.50-5.90) Hemoglobin 11.8 GM/DL 10.6 GM/DL (13.0-17.0) (13.0-17.0) Hematocrit 34.1 % 30.6 % (39.0-51.0) (39.0-51.0) Mean Corpuscular Volume 92.8 FL 92.9 FL (80.0-100.0) (80.0-100.0) Mean Corpuscular Hemoglobin 32.2 PG 32.1 PG (27.0-34.0) (27.0-34.0) Mean Corpuscular Hemoglobin 34.7 % 34.5 % Concent (32.0-36.0) (32.0-36.0) Red Cell Distribution Width 12.7 % 13.1 % (11.6-17.2) (11.6-17.2) Platelet Count 168 TH/MM3 137 TH/MM3 (150-450) (150-450) Mean Platelet Volume 9.8 FL 9.2 FL (7.0-11.0) (7.0-11.0) Neutrophils (%) (Auto) 93.5 % (16.0-70.0) Lymphocytes (%) (Auto) 2.3 % (9.0-44.0) Monocytes (%) (Auto) 4.0 % (0.0-8.0) Eosinophils (%) (Auto) 0.0 % (0.0-4.0) Basophils (%) (Auto) 0.2 % (0.0-2.0) Neutrophils # (Auto) 18.5 TH/MM3 (1.8-7.7) Lymphocytes # (Auto) 0.4 TH/MM3 (1.0-4.8) Monocytes # (Auto) 0.8 TH/MM3 (0-0.9) Eosinophils # (Auto) 0.0 TH/MM3 (0-0.4) Basophils # (Auto) 0.0 TH/MM3 (0-0.2) CBC Comment DIFF FINAL Differential Comment Activated Partial 41.9 SEC 34.9 SEC Thromboplast Time (24.3-30.1) (24.3-30.1) Sodium Level 131 MEQ/L 136 MEQ/L (136-145) (136-145) Potassium Level 4.2 MEQ/L 4.0 MEQ/L (3.5-5.1) (3.5-5.1) Chloride Level 101 MEQ/L 103 MEQ/L (98-107) (98-107) Carbon Dioxide Level 21.5 MEQ/L 22.4 MEQ/L (21.0-32.0) (21.0-32.0) Anion Gap 9 MEQ/L (5-15) 11 MEQ/L (5-15) Blood Urea Nitrogen 49 MG/DL (7-18) 44 MG/DL (7-18) Creatinine 1.22 MG/DL 0.86 MG/DL (0.60-1.30) (0.60-1.30) Estimat Glomerular Filtration 60 ML/MIN (>89) 90 ML/MIN (>89) Rate Random Glucose 180 MG/DL 156 MG/DL (74-106) (74-106) Calcium Level 7.4 MG/DL 7.6 MG/DL (8.5-10.1) (8.5-10.1) Protein Corrected Calcium 8.3 MG/DL (8.5-10.1) Phosphorus Level 3.4 MG/DL 1.7 MG/DL (2.5-4.9) (2.5-4.9) Magnesium Level 3.1 MG/DL 3.0 MG/DL (1.5-2.5) (1.5-2.5) Total Bilirubin 2.8 MG/DL (0.2-1.0) Aspartate Amino Transf 38 U/L (15-37) (AST/SGOT) Alanine Aminotransferase 39 U/L (12-78) (ALT/SGPT) Alkaline Phosphatase 81 U/L (45-117) Total Protein 5.5 GM/DL (6.4-8.2) Albumin 1.7 GM/DL (3.4-5.0) Lactic Acid Level 2.7 mmol/L (0.4-2.0) Blood Gas Puncture Site JAIRON Blood Gas Patient Temperature 98.6 Blood Gas HCO3 20 mmol/L (22-26) Blood Gas Base Excess -3.9 mmol/L (-2-2) Blood Gas Oxygen Saturation 94 % (90-100) Arterial Blood pH 7.43 (7.380-7.420) Arterial Blood Partial 31 mmHg (38-42) Pressure CO2 Arterial Blood Partial 85 mmHg Pressure O2 (61-120) Arterial Blood Oxygen Content 22.4 Vol % (12.0-20.0) Arterial Blood 1.2 % (0-4) Carboxyhemoglobin Arterial Blood Methemoglobin 0.9 % (0-2) Blood Gas Hemoglobin 16.9 G/DL (12.0-16.0) Oxygen Delivery Device VENTILATOR Blood Gas Ventilator Setting SEE COMMENT Blood Gas Inspired Oxygen 50 % Result Diagram: 12/17/16 0512 12/17/16 0512 Microbiology Microbiology Date/Time Procedure Status Source Growth 12/14/16 17:20 Aerobic Blood Culture - Preliminary Resulted Blood Peripheral NO GROWTH IN 3 DAYS 12/14/16 17:20 Anaerobic Blood Culture - Preliminary Resulted Blood Peripheral NO GROWTH IN 3 DAYS 12/14/16 17:25 Aerobic Blood Culture - Preliminary Resulted Blood Peripheral NO GROWTH IN 3 DAYS 12/14/16 17:25 Anaerobic Blood Culture - Preliminary Resulted Blood Peripheral NO GROWTH IN 3 DAYS 12/15/16 06:09 Aerobic Blood Culture - Preliminary Resulted Blood Peripheral NO GROWTH IN 2 DAYS 12/15/16 06:09 Anaerobic Blood Culture - Preliminary Resulted Blood Peripheral NO GROWTH IN 2 DAYS . Imaging Last Impressions Chest X-Ray 12/17/16 0600 Signed Impressions: Service Date/Time: December 03:32 - CONCLUSION: Persistent left lower lobe consolidation. ET tube tip is close to the ninfa and needs to be withdrawn 1 cm. Aristeo Tellez MD Neck CTA 12/14/16 0000 Signed Impressions: Service Date/Time: Wednesday, December 14, 2016 04:20 - CONCLUSION: No significant stenoses in the carotids. Incidental note of bilateral pleural effusions and upper lobe emphysema. Aristeo Tellez MD Head CTA 12/14/16 0000 Signed Impressions: Service Date/Time: Wednesday, December 14, 2016 04:20 - CONCLUSION: Negative intracranial CTA. No evidence of vessel truncation. Aristeo Tellez MD Head CT 12/14/16 0000 Signed Impressions: Service Date/Time: Wednesday, December 14, 2016 14:56 - CONCLUSION: 1. There is a new 6 mm area low density in the left basal ganglia which could represent a recent area of ischemia. There is stable encephalomalacia in the right cerebellum. 2. Nonspecific punctate areas of air near the right cerebellum and left occipital region. These are of uncertain etiology but may be related to retrograde venous air. The air in the right cerebellar region is near the sinus. Since this is of uncertain etiology consider followup CT to assess for change. Davey Hernandez MD Brain MRI 12/14/16 0000 Signed Impressions: Service Date/Time: Wednesday, December 14, 2016 17:58 - CONCLUSION: Numerous mostly small acute or subacute bilateral cerebral and right cerebellar infarcts as described above. No bleed, mass effect or midline shift. Davey Nicholas MD Chest CT 12/12/16 0000 Signed Impressions: Service Date/Time: Monday, December 12, 2016 12:13 - CONCLUSION: 1. Small bilateral pleural effusions and subsegmental consolidating airspace disease in the bases. 2. Persistent small pericardial effusion. 3. No other significant abnormality. Roman Cordero MD Pericardiocentesis 12/08/16 0815 Signed Impressions: Service Date/Time: Thursday, December 08, 2016 08:43 - CONCLUSION: Uncomplicated CT-guided pericardial centesis as above. Roman Cordero MD . Procedures 12/14femoral arterial line right, right IJ central line 12/08--to interventional radiology CT-guided pericardiocentesis . Assessment and Plan Disease Oriented Problem List: (1) V-tach Comment: Status post V. tach arrest (2) Acute CVA (cerebrovascular accident) Comment: Likely embolic (3) ACS (acute coronary syndrome) (4) STEMI (ST elevation myocardial infarction) (5) Septic shock Comment: Gram-positive bacteremia (6) COPD (chronic obstructive pulmonary disease) (7) COPD exacerbation (8) Pericardial effusion (9) Atrial fibrillation with RVR (10) Lung consolidation (11) Hypertension (12) Hyponatremia (13) GERD (gastroesophageal reflux disease) (14) Hyperlipidemia (15) Leukocytosis (16) Diabetes Symptom Scale: (1) Dyspnea 0-10 Scale: Unable to quantify (2) Malnutrition 0-10 Scale: Unable to quantify Comment: Albumin 1.7. (3) Pain 0-10 Scale: Unable to quantify (4) Encephalopathy 0-10 Scale: Unable to quantify (5) Constipation 0-10 Scale: Unable to quantify Pertinent Non-Medical Issues Psychosocial: . 1 son and 1 daughter. Spiritual: Unknown. Legal: Patient is not able to participate in decision-making due to clinical condition. Not clear if he will regain ability. No advanced directive or HCS. According to [place] statutes, health care proxy decision making falls to his spouse. Ethical issues impacting care: No known concerns at this time. . Important Contacts Chantal Carrasco [phone] Brother Davey Carrasco [phone] . Prognosis This patient was admitted for chest pain, findings of atrial fib RVR, status post multiple ED visits for A. fib, chest pain, status post EPS ablation last month. This admission now with pericardial effusion, sepsis, multiple small areas of infarct per brain MRI, status post V. tach arrest 12/14. Now vented in ICU. High risk for ongoing complications and setbacks though possible patient can survive. Extent of recovery not known at this point, pending clinical course. . Code Status: Full Code Plan * Legal decision maker:Patient is not able to participate in decision-making due to clinical condition. Not clear if he will regain ability. No advanced directive or HCS. According to [place] statutes, health care proxy decision making falls to his spouse. * Goals: Goals aggressive for now, including FULL CODE. Plan for family meeting 12/18/16 after repeat EEG and MRI available. * FULL CODE. * SYMPTOMS: --Dyspnea-emergently intubated during cardiac arrest 12/14, currently breathing comfortably on mechanical vent, fentanyl off --Malnutrition- OG tube in place, tube feeding begun at low rate. Bowel sounds hypoactive. tolerating TF. Albumin 1.9. Will continue to monitor. --Chest pain-patient presented with chest pain, multiple episodes of chest pain in the past months. Has required ongoing cardiac interventions secondary to ACS, STEMI, currently appears comfortable fentanyl drip weaned off, will continue to evaluate -- encephalopathy- + mult areas small infarct per MRI, some neuro changes prior to acute cardiac event and intubation. Now on mech vent. Off fentanyl as of today, minimal neuro response today. -- constipation- last BM 12/13-- no bowel regimen in place, recommend senna scheduled daily, PRN dulcolax. * Palliative care will continue to follow during hospital course as condition evolves, to assist patient/decision-maker with understanding of medical conditions, weighing benefits/burdens of treatment options, for clarification of goals of treatment. Additionally will assist with any symptoms of palliative concern. . Attestation To help prompt me to consider important information that might be impacting today's encounter and assessment, information from prior notes written by myself or my colleagues may have been "brought forward" into today's note. My signature on this note, however, is an attestation that I personally performed the exam, history, and/or decision-making noted today, and, unless otherwise indicated, the interactions with patient, family, and staff as well as the review of records all occurred today. I also attest that the listed assessment and stated plan reflect my best clinical judgment today based on the combination of historical information, prior notes, and today's exam/ interactions. When time spent is documented, it refers only to time spent today by the signer, or if indicated, combined time spent today by collaborating physician/nurse practitioner. Beronica Solomon Dec 17, 2016 16:05
--- NOTE | 2016-12-17 16:17 | MG ---
cc: [facility] Lab No: Date: Age: Sex: M Race: Hyperventilation not performed. Left posterior temporal epileptiform activity prior. Possible seizure. Atrial fibrillation. Infarcts bilaterally. Keppra. Aspirin. Lipitor. DESCRIPTION OF THE RECORD: Diffuse 5 hertz slowing is seen. The recording overall is synchronous and symmetric. No hemisphere asymmetries are noted. Photic stimulation was performed without significant posterior driving. Hyperventilation not performed. IMPRESSION: Diffuse slowing consistent with a moderate diffuse encephalopathy but no focal abnormality was noted. No seizure activity was seen. MD TERRI Howard/TYRA /3:14 PM /4:08 PM
[2016-12-17] MEDS: fentaNYL DRIP 250 ML IV SCH (16:20)
[2016-12-17] MEDS: PROPOFOL 1000 MG/100 ML INJ 100 ML IV SCH ×2 (16:30→21:30)
--- NOTE | 2016-12-17 17:38 | RADRPT ---
EXAM DATE/TIME: 12/17/2016 17:01 [facility] COMPARISON: MRI BRAIN W/O CONTRAST, December 14, 2016, 17:58. CT BRAIN W/O CONTRAST, December 14, 2016, 14:56. INDICATIONS : Severe hypertension. History of multiple infarcts seen on MRI.. RADIATION DOSE: 43.43 CTDIvol (mGy) MEDICAL HISTORY : Cardiovascular disease. Carcinoma, prostate. Chronic obstructive pulmonary disease.Diabetes, hyperten quinton. SURGICAL HISTORY : None. ENCOUNTER: Initial ACUITY: 1 day PAIN SCALE: 0/10 LOCATION: cranial TECHNIQUE: Multiple contiguous axial images were obtained of the head. Using automated exposure control and adj ustment of the mA and/or kV according to patient size, radiation dose was kept as low as reasonably a chievable to obtain optimal diagnostic quality images. DICOM format image data is available electro nically for review and comparison. FINDINGS: Study is degraded by streak and motion artifact. CEREBRUM: The ventricles are normal for age. No evidence of midline shift, mass lesion, hemorrhage or acute in farction. There is a stable low attenuation in the left basal ganglia without change. No extra-axial fluid collections are seen. POSTERIOR FOSSA: The cerebellum and brainstem are intact. The 4th ventricle is midline. The cerebellopontine angle i s unremarkable. EXTRACRANIAL: The visualized portion of the orbits is intact. SKULL: The calvaria is intact. No evidence of skull fracture. CONCLUSION: 1. The study is degraded by streak and motion artifact limiting. 2. Stable area of decreased attenuation noted in the left basal ganglia. This appears to correspond t o one of the areas of subacute infarction seen on MRI. 3. No definite acute hemorrhage or mass effect visualized. Mt Dodd MD on December 17, 2016 at 17:33 Board Certified Radiologist. This report was verified electronically.
--- NOTE | 2016-12-17 18:08 | HHI.PR ---
Subjective Remarks On mechanical ventilation Objective Vital Signs Date Time Temp Pulse Resp B/P Pulse Ox O2 Delivery O2 Flow Rate FiO2 12/17/16 15:58 93 50 12/17/16 12:17 96 50 12/17/16 07:48 96 50 12/17/16 06:19 45 12/17/16 06:00 74 12/17/16 04:14 94 40 12/17/16 04:00 85 12/17/16 04:00 45 12/17/16 04:00 98.4 85 20 159/80 92 146/67 12/17/16 02:00 69 12/17/16 01:33 95 40 12/17/16 00:00 69 12/17/16 00:00 98.4 69 20 110/72 94 115/58 12/17/16 00:00 45 12/16/16 22:00 68 12/16/16 20:00 68 12/16/16 20:00 45 12/16/16 20:00 98.0 68 20 103/65 93 106/58 12/16/16 19:37 93 40 12/16/16 18:00 68 I/O 12/16/16 12/16/16 12/16/16 12/17/16 12/17/16 12/17/16 07:00 15:00 23:00 07:00 15:00 23:00 Intake Total 1995 ml 1861 ml 1075 ml 2183 ml Output Total 300 ml 400 ml 500 ml 600 ml Balance 1695 ml 1461 ml 575 ml 1583 ml IV Total 1702 ml 1488 ml 785 ml 1835 ml Tube Feeding 233 ml 253 ml 290 ml 288 ml Other 60 ml 120 ml 60 ml Output Urine Total 300 ml 400 ml 500 ml 600 ml Tube Feeding Residual Discard 0 ml 0 ml # Bowel Movements 0 0 0 Result Diagram: 12/17/1651112/17/1612 Imaging Sedated, intubated, on mechanical ventilation lungs: ventilated Heart: S1, S2 irregular Abdomen: soft, no mass Ext: no edema Last Impressions Chest X-Ray 12/17/16 0600 Signed Impressions: Service Date/Time: December 03:32 - CONCLUSION: Persistent left lower lobe consolidation. ET tube tip is close to the ninfa and needs to be withdrawn 1 cm. Aristeo Tellez MD Head CT 12/17/16 0000 Signed Impressions: Service Date/Time: December 17:01 - CONCLUSION: 1. The study is degraded by streak and motion artifact limiting. 2. Stable area of decreased attenuation noted in the left basal ganglia. This appears to correspond to one of the areas of subacute infarction seen on MRI. 3. No definite acute hemorrhage or mass effect visualized. Mt Dodd MD Neck CTA 12/14/16 0000 Signed Impressions: Service Date/Time: Wednesday, December 14, 2016 04:20 - CONCLUSION: No significant stenoses in the carotids. Incidental note of bilateral pleural effusions and upper lobe emphysema. Aristeo Tellez MD Head CTA 12/14/16 0000 Signed Impressions: Service Date/Time: Wednesday, December 14, 2016 04:20 - CONCLUSION: Negative intracranial CTA. No evidence of vessel truncation. Aristeo Tellez MD Brain MRI 12/14/16 0000 Signed Impressions: Service Date/Time: Wednesday, December 14, 2016 17:58 - CONCLUSION: Numerous mostly small acute or subacute bilateral cerebral and right cerebellar infarcts as described above. No bleed, mass effect or midline shift. Davey Nicholas MD Chest CT 12/12/16 0000 Signed Impressions: Service Date/Time: Monday, December 12, 2016 12:13 - CONCLUSION: 1. Small bilateral pleural effusions and subsegmental consolidating airspace disease in the bases. 2. Persistent small pericardial effusion. 3. No other significant abnormality. Roman Cordero MD Pericardiocentesis 12/08/16 0815 Signed Impressions: Service Date/Time: Thursday, December 08, 2016 08:43 - CONCLUSION: Uncomplicated CT-guided pericardial centesis as above. Roman Cordero MD Current Medications Medications (Trade) Dose Ordered Sig/Michelle Route Start Time Stop Time Status Last Admin (Lipitor) 40 mg HS PO 12/07/16 21:00 12/16/16 20:01 (Robitussin Liq) 200 mg Q4H PRN PO 12/08/16 12:15 Hold 12/09/16 04:38 (Cordarone) 200 mg DAILY PO 12/10/16 09:00 12/17/16 09:41 (Colchicine) 0.6 mg DAILY PO 12/11/16 09:00 12/17/16 09:41 (Imodium) 2 mg Q6H PRN PO 12/10/16 22:00 12/12/16 10:56 (Mucinex Er) 600 mg BID PO 12/11/16 21:00 Hold 12/14/16 22:18 (Phazyme Chew) 125 mg Q8HR PO 12/12/16 10:00 Hold 12/16/16 05:30 (Tylenol) 650 mg Q6H PRN PO 12/12/16 22:45 12/13/16 21:16 (Romazicon Inj) 0.2 mg Q1M PRN IV PUSH 12/13/16 06:30 Lorazepam 1 mg 1 mg Q6H PRN PO 12/13/16 08:45 12/14/16 02:45 (Cardizem Inj/NS Inj) 125 ml @ 0 mls/hr TITRATE IV 12/13/16 16:00 12/14/16 06:21 Miscellaneous Information Patient in critical care unit? Ass... Q361D .XX 12/14/16 06:30 12/14/16 06:26 (Chlorhexidine 2% Cloth) 3 pack DAILY@04 TOPICAL 12/15/16 04:00 12/19/16 04:01 12/17/16 02:17 (Chlorhexidine 2% Cloth) 3 pack UNSCH PRN TOPICAL 12/14/16 06:30 12/19/16 06:24 Chlorhexidine Gluconate 15 ml 15 ml BID@08,20 MT 12/14/16 20:00 12/17/16 09:43 Potassium Chloride 100 ml @ 50 mls/hr Q2H PRN IV 12/14/16 09:30 (KCl 20 Meq Premix Inj) 100 ml @ 50 mls/hr Q2H PRN IV 12/14/16 09:30 Potassium Bicarb/ Potassium Chloride 50 meq 50 meq UNSCH PRN PO 12/14/16 09:30 Potassium Chloride 100 ml @ 25 mls/hr UNSCH PRN IV 12/14/16 09:30 Potassium Chloride 100 ml @ 50 mls/hr Q2H PRN IV 12/14/16 09:30 (Magnesium Sulfate Inj/NS Inj) 100 ml @ 50 mls/hr UNSCH PRN IV 12/14/16 09:30 Magnesium Oxide 800 mg 800 mg UNSCH PRN PO 12/14/16 09:30 (Magnesium Sulfate Inj/NS Inj) 100 ml @ 50 mls/hr UNSCH PRN IV 12/14/16 09:30 Potassium Phosphate 2000 mg 2,000 mg Q4H PRN PO 12/14/16 09:30 (Sodium Phosphate Inj/NS 250 ml Inj) 250 ml @ 42 mls/hr UNSCH PRN IV 12/14/16 09:30 12/17/16 09:40 Potassium Phosphate 2000 mg 2,000 mg UNSCH PRN PO/TUBE 12/14/16 09:30 Potassium Phosphate 30 mmol/ Sodium Chloride 260 ml @ 42 mls/hr UNSCH PRN IV 12/14/16 09:30 Sodium Chloride 1,000 ml @ 0 mls/hr Q0M IV 12/14/16 10:00 12/16/16 14:09 (Zosyn 4.5 Gm Premix) 100 ml @ 200 mls/hr Q6H IV 12/14/16 10:00 12/17/16 14:29 (D50w (Vial) Inj) 50 ml UNSCH PRN IV 12/14/16 09:45 (Glucagon Inj) 1 mg UNSCH PRN OTHER 12/14/16 09:45 (NovoLIN R SUPPLEMENTAL SCALE) 1 Q4H SQ 12/14/16 10:00 12/17/16 11:50 (Protonix Inj) 40 mg Q24H IV PUSH 12/15/16 10:00 12/17/16 09:37 Hydrocortisone Sodium Succinate 50 mg 50 mg Q6H IV PUSH 12/14/16 15:00 12/17/16 14:31 Pharmacy Profile Note 0 ml @ 0 mls/hr UNSCH OTHER 12/14/16 10:45 Vasopressin 40 units/Dextrose 100 ml @ 4.5 mls/hr [id number] IV 12/14/16 10:38 12/17/16 14:30 (Levophed-Dextrose Drip) 250 ml @ 0 mls/hr TITRATE IV 12/14/16 11:15 12/16/16 05:21 (Brethine Inj) 1 mg UNSCH PRN SQ 12/14/16 11:15 (Aspirin Chew) 324 mg DAILY CHEW 12/15/16 09:00 12/17/16 09:39 Clopidogrel Bisulfate 75 mg 75 mg DAILY PO 12/15/16 09:00 12/17/16 09:38 Amiodarone HCl 450 mg/Dextrose 250 ml @ 0 mls/hr CONTINUOUS IV 12/15/16 04:00 12/16/16 05:21 (Keppra Inj/NS Inj) 105 ml @ 420 mls/hr Q12H IV 12/15/16 10:00 12/17/16 09:39 Lorazepam 1 mg 1 mg Q4H PRN IV PUSH 12/15/16 09:45 Heparin Sodium/ Dextrose 250 ml @ 0 mls/hr TITRATE IV 12/15/16 16:00 12/16/16 16:03 (Vancomycin Inj/ NS 250 ml Inj) 262.5 ml @ 250 mls/hr Q12H IV 12/16/16 13:00 12/17/16 14:30 Miscellaneous Information SPECIFIC LAB TO BE DRAWN:VANCOMYCIN TROUGH DATE TO... ONCE ONCE .XX 12/18/16 00:45 12/18/16 00:46 (Tears Naturale Opth Soln) 1 drop Q4HR EACH EYE 12/16/16 09:45 12/17/16 16:29 Chlorhexidine Gluconate 15 ml 15 ml BID@08,20 MT 12/16/16 20:00 12/16/16 20:00 Fentanyl Citrate 250 ml @ 0 mls/hr TITRATE IV 12/17/16 15:30 Fentanyl Citrate 250 ml @ 0 mls/hr TITRATE IV 12/17/16 15:30 (Diprivan 1000 Mg/100ml Inj) 100 ml @ 0 mls/hr TITRATE IV 12/17/16 16:00 Assessment and Plan Problem List: (1) Atrial fibrillation with RVR Status: Chronic Plan: Patient was admitted for atrial fibrillation with FVR. During hospitalization, ablation was contemplated. Due to pericardial effusion, it was cancelled. Pericardiocentesis was performed by radiologist. Subsequently developed sepsis and CVA. Currently on mechanical ventilation. Head CT was performed today to r/o swelling. No clot, no vegetation seen on YOANDY. Source of emboli unknown. On IV antibiotic and heparin. HR in the 110s. Afib SBP 97. No room to add negative chronotropic meds for now. Will continue on current management, His condition is critical. His prognosis is poor (2) Chest pain Status: Acute Plan: Sedated , on mechanical ventilation. No new ST changes Problem Qualifiers (1) Chest pain: Qualified Code: R07.9 - Chest pain, unspecified type Maria T Diamond MD Dec 17, 2016 18:08
[2016-12-17] MEDS ORDERED: DILTIAZEM HCL 25 MG/5 ML VIAL IVP ONE (19:30)
[2016-12-17] MEDS ORDERED: DILTIAZEM INJ 125 MG in SODIUM CHLORIDE 0.9% INJ 100 ML IV SCH (19:30)
[2016-12-17] MEDS ORDERED: DILTIAZEM HCL 25 MG/5 ML VIAL IV ONE (21:00)
[2016-12-17 21:21] LABS: APTT (PATIENT) 34.8 SEC (24.3-30.1)
[2016-12-17] MEDS: ATORVASTATIN 40 MG TAB PO SCH (21:29)
[2016-12-17] MEDS: ACETAMINOPHEN 325 MG TAB PO PRN (21:29)
[2016-12-17] MEDS ORDERED: TERBUTALINE INJ 1 MG/ML AMP SQ PRN (22:30)
[2016-12-18] VITALS (18 sets, daily range): BP systolic 83–132; BP diastolic 55–82; PULSE 61–125; RESP 15–26; TEMP 98.1–100.5; O2SAT 92–100
[2016-12-18] MEDS ORDERED: PHARMACY ORDERED LAB ONE (00:45)
[2016-12-18] MEDS: VANCOMYCIN INJ 1,250 MG in SODIUM CHLOR 0.9% 250 ML INJ 250 ML IV SCH ×2 (01:00→13:15)
[2016-12-18] MEDS: INSULIN NovoLIN REGULAR SUPPLEMENTAL SCALE SQ SCH ×6 (02:00→22:00)
[2016-12-18] MEDS: HYDROCORTISONE SOD SUCCINATE 100 MG VIAL IV PUSH SCH ×4 (03:03→20:55)
[2016-12-18] MEDS: CHLORHEXIDINE GLUCONATE 2 % 1 PACK (2 CLOTHS)(taper/protocol) TOPICAL SCH (03:04)
[2016-12-18] MEDS: ARTIFICIAL TEARS OPTH SOLN 15 ML BTL EACH EYE SCH ×6 (03:04→19:25)
[2016-12-18] MEDS: PIPERACIL-TAZO 4.5 GM PREMIX 100 ML IV SCH ×4 (03:05→20:56)
[2016-12-18] MEDS: RESP: ALBUTEROL 2.5 MG/IPRATROPIUM 0.5 MG NEB (SCH) NEB (04:20)
--- NOTE | 2016-12-18 04:50 | RADRPT ---
EXAM DATE/TIME: 12/18/2016 03:24 [facility] COMPARISON: CHEST SINGLE AP, December 17, 2016, 3:32. INDICATIONS : Shortness of breath MEDICAL HISTORY : Diabetes mellitus type II. Carcinoma, prostatic. Gastroesophageal reflux disease. A-fib SURGICAL HISTORY : Tonsillectomy, Cardiac ablation ENCOUNTER: Subsequent ACUITY: 2 weeks PAIN SCORE: Non-responsive. LOCATION: Bilateral chest FINDINGS: A single view of the chest demonstrates the lungs to be symmetrically aerated with persistent left ba silar consolidation/effusion. Minimal, stable atelectatic changes above the right hemidiaphragm. Hear t size is prominent. Life support tubes are all stable in position. CONCLUSION: 1. Stable left basilar consolidation/effusion with minimal atelectatic changes of the right hemidiaph ragm. 2. Stable cardiomegaly. Stable position of life support tubes. Josse Cho MD on December 18, 2016 at 4:48 Board Certified Radiologist. This report was verified electronically.
[2016-12-18] MEDS: ASPIRIN 81 MG CHEW TAB CHEW SCH (07:59)
[2016-12-18] MEDS: CLOPIDOGREL 75 MG TAB PO SCH (07:59)
[2016-12-18] MEDS: AMIODARONE 200 MG TAB PO SCH (07:59)
[2016-12-18] MEDS: RESP: BUDESONIDE 0.5 MG/2 ML NEB NEB SCH ×3 (08:00→20:00)
[2016-12-18] MEDS: HEPARIN-D5W 25,000 U/250 ML 250 ML IV SCH (08:02)
[2016-12-18] MEDS: CHLORHEXIDINE 0.12% (ORAL KIT) 15 ML CUP MT SCH ×2 (08:03→19:25)
[2016-12-18] MEDS: COLCHICINE 0.6 MG TAB PO SCH (08:21)
[2016-12-18] MEDS: PANTOPRAZOLE SODIUM 40 MG VIAL IV PUSH SCH (10:01)
[2016-12-18] MEDS: levETIRAcetam INJ 500 MG in SODIUM CHLORIDE 0.9% INJ 100 ML IV SCH ×2 (10:01→20:55)
[2016-12-18] MEDS: PROPOFOL 1000 MG/100 ML INJ 100 ML IV SCH (10:02)
[2016-12-18] MEDS: fentaNYL DRIP 250 ML IV SCH (10:02)
--- NOTE | 2016-12-18 12:15 | RADRPT ---
EXAM DATE/TIME: 12/18/2016 11:07 [facility] COMPARISON: CTA BRAIN W 3D RECON, December 14, 2016, 4:20. MRI BRAIN W/O CONTRAST, December 14, 2016, 17:58. INDICATIONS : Altered mental status. MEDICAL HISTORY : Chronic obstructive pulmonary disease. Diabetes mellitus type 2. Carcinoma, prostate. SURGICAL HISTORY : Ablations,lt ankle ENCOUNTER: Subsequent ACUITY: 4-6 days PAIN SCORE: Nonresponsive. LOCATION: head TECHNIQUE: Multiplanar, multisequence MRI of the brain was performed without contrast. FINDINGS: The diffusion restricted images demonstrate patchy areas of abnormal restricted diffusion involving t he basal ganglia and around the cortices. The examination is concerning for laminar necrosis and glob al hypoxia. This is significantly worse than seen on previous examination. The ventricles are normal in size and configuration. No abnormal extra-axial fluid collections are se en. No mass lesion is identified. Imaging through the posterior fossa again demonstrates abnormal diffusion signal around the cerebellu m concerning for global anoxia. The visualized sinus and orbit are clear. CONCLUSION: Diffuse abnormal diffusion signal within sulci and gyri of both hemispheres, the caudate, basal gangl ia and cerebellar hemispheres. The findings are concerning for global and anoxia. This is significant ly worse than seen on previous study. Bakari Vera MD on December 18, 2016 at 12:10 Board Certified Radiologist. This report was verified electronically.
--- NOTE | 2016-12-18 12:51 | HHI.IDPN ---
Subjective Subjective Remarks Patient is a 66-year-old male, who has had problem with recurrent atrial fibrillation with RVR, presented to the hospital complaining of chest pain, shortness of breath, and some heartburn. He has had multiple admissions for A. fib with RVR. In November 09, he underwent ablation. Despite that he continued to have problem rapid atrial fibrillation. On this admission he came in for the same problem, and he had an echo which showed moderate pericardial effusion. He underwent pericardiocentesis done by IR. The fluid looks exudative. He was seen by cardiology again, and he was being evaluated for repeat ablation. His had continued problem with chest pain on top of his atrial arrhythmia. Early this morning stroke alert was called since she was noted to have left-sided weakness. He was transferred to the intensive care unit, was being evaluated for thrombolytic therapy. Patient subsequently had cardiac arrest, and ended up getting intubated. He is currently on sedation. He is on Levophed. His monitor shows controlled rate. His white count went up to above 20,000, an infectious disease consultation has been requested to evaluate the patient. The pericardial fluid culture is negative. 2 blood cultures were done yesterday and those are now reported as growing strep anginosus. He had another echocardiogram today and again showing moderate pericardial effusion. Highest temperature has been about 99.8. He is currently on the vent. Notes reviewed Sedated on the vent Temps occ low grade BP ok Had afib RVR last night, sinus now Repeat MRI brain worse, C/W global anoxia First Brain MRI with mulitple infarct YOANDY no vegetation BC with Viridans Strep and Coag Neg Staph No new (+) BC Sputum normal melecio CXR LLL consolidation Antibiotics Vanco Zosyn Lines RIJ TLC R groin A line Past Medical History Paroxysmal atrial fibrillation Hypertension DM Hyperlipidemia GERD Erectile dysfunction History of prostate cancer, received radiation therapy Hx of tobacco use Past Surgical History Repair of left ankle fracture following orthopedic injuries secondary to a fall EPS with ablation performed by Dr. Diamond (11/09/16) Allergies: Coded Allergies: monosodium glutamate (Unverified Allergy, Intermediate, Hives, 12/15/16) Objective . Vital Signs Date Time Temp Pulse Resp B/P Pulse Ox O2 Delivery O2 Flow Rate FiO2 12/18/16 08:26 99 60 12/18/16 08:00 60 12/18/16 08:00 98.4 63 18 108/69 100 119/62 12/18/16 08:00 63 12/18/16 06:00 61 12/18/16 04:00 77 12/18/16 04:00 60 12/18/16 04:00 98.1 77 15 96/63 99 100/57 12/18/16 02:00 72 12/18/16 00:15 98 60 12/18/16 00:00 94 12/18/16 00:00 60 12/18/16 00:00 100.0 94 19 97/63 98 102/58 12/17/16 22:00 118 12/17/16 20:00 127 12/17/16 20:00 100.4 127 15 91/62 92 90/54 12/17/16 20:00 70 12/17/16 19:47 93 70 12/17/16 18:00 126 12/17/16 16:00 45 12/17/16 16:00 105 12/17/16 16:00 99.0 105 22 154/88 92 154/72 12/17/16 15:58 93 50 12/17/16 14:00 87 12/17/16 12/17/16 12/18/16 14:59 22:59 06:59 Intake Total 1506 ml 1046 ml 956 ml Output Total 500 ml 650 ml 275 ml Balance 1006 ml 396 ml 681 ml IV Total 1049 ml 911 ml 892 ml Tube Feeding 337 ml 35 ml 64 ml Other 120 ml 100 ml Output Urine Total 500 ml 650 ml 275 ml # Bowel Movements 1 . Laboratory Tests Test 12/17/16 05:12 White Blood Count 15.3 TH/MM3 Red Blood Count 3.29 MIL/MM3 Hemoglobin 10.6 GM/DL Hematocrit 30.6 % Mean Corpuscular Volume 92.9 FL Mean Corpuscular Hemoglobin 32.1 PG Mean Corpuscular Hemoglobin 34.5 % Concent Red Cell Distribution Width 13.1 % Platelet Count 137 TH/MM3 Mean Platelet Volume 9.2 FL Laboratory Tests Test 12/16/16 12/17/16 13:10 05:12 Lactic Acid Level 2.7 mmol/L Sodium Level 136 MEQ/L Potassium Level 4.0 MEQ/L Chloride Level 103 MEQ/L Carbon Dioxide Level 22.4 MEQ/L Anion Gap 11 MEQ/L Blood Urea Nitrogen 44 MG/DL Creatinine 0.86 MG/DL Estimat Glomerular Filtration 90 ML/MIN Rate Random Glucose 156 MG/DL Calcium Level 7.6 MG/DL Phosphorus Level 1.7 MG/DL Magnesium Level 3.0 MG/DL Imaging Brain MRI 12/18/16 0900 Draft Impressions: Service Date/Time: Sunday, December 18, 2016 11:07 - CONCLUSION: Diffuse abnormal diffusion signal within sulci and gyri of both hemispheres, the caudate, basal ganglia and cerebellar hemispheres. The findings are concerning for global and anoxia. This is significantly worse than seen on previous study. Bakari Vera MD Chest X-Ray 12/18/16 0600 Signed Impressions: Service Date/Time: Sunday, December 18, 2016 03:24 - CONCLUSION: 1. Stable left basilar consolidation/effusion with minimal atelectatic changes of the right hemidiaphragm. 2. Stable cardiomegaly. Stable position of life support tubes. Josse Cho MD Chest X-Ray 12/17/16 0600 Signed Impressions: Service Date/Time: December 03:32 - CONCLUSION: Persistent left lower lobe consolidation. ET tube tip is close to the ninfa and needs to be withdrawn 1 cm. Aristeo Tellez MD Head CT 12/17/16 0000 Signed Impressions: Service Date/Time: December 17:01 - CONCLUSION: 1. The study is degraded by streak and motion artifact limiting. 2. Stable area of decreased attenuation noted in the left basal ganglia. This appears to correspond to one of the areas of subacute infarction seen on MRI. 3. No definite acute hemorrhage or mass effect visualized. Mt Dodd MD Chest X-Ray 12/16/16 0000 Signed Impressions: Service Date/Time: Friday, December 16, 2016 04:31 - CONCLUSION: Interval increase in left lower lobe consolidation. Aristeo Tellez MD Neck CTA 12/14/16 0000 Signed Impressions: Service Date/Time: Wednesday, December 14, 2016 04:20 - CONCLUSION: No significant stenoses in the carotids. Incidental note of bilateral pleural effusions and upper lobe emphysema. Aristeo Tellez MD Head CTA 12/14/16 0000 Signed Impressions: Service Date/Time: Wednesday, December 14, 2016 04:20 - CONCLUSION: Negative intracranial CTA. No evidence of vessel truncation. Aristeo Tellez MD Head CT 12/14/16 0000 Signed Impressions: Service Date/Time: Wednesday, December 14, 2016 14:56 - CONCLUSION: 1. There is a new 6 mm area low density in the left basal ganglia which could represent a recent area of ischemia. There is stable encephalomalacia in the right cerebellum. 2. Nonspecific punctate areas of air near the right cerebellum and left occipital region. These are of uncertain etiology but may be related to retrograde venous air. The air in the right cerebellar region is near the sinus. Since this is of uncertain etiology consider followup CT to assess for change. Davey Hernandez MD Chest X-Ray 12/14/16 0000 Signed Impressions: Service Date/Time: Wednesday, December 14, 2016 09:26 - CONCLUSION: Support apparatus in good position. 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 No bleed, mass effect or midline shift. Davey Nicholas MD Chest CT 12/12/16 0000 Signed Impressions: Service Date/Time: Monday, December 12, 2016 12:13 - CONCLUSION: 1. Small bilateral pleural effusions and subsegmental consolidating airspace disease in the bases. 2. Persistent small pericardial effusion. 3. No other significant abnormality. Roman Cordero MD Pericardiocentesis 12/08/16 0815 Signed Impressions: Service Date/Time: Thursday, December 08, 2016 08:43 - CONCLUSION: Uncomplicated CT-guided pericardial centesis as above. Roman Cordero MD Physical Exam GENERAL: On vent, looks comfortable, Sedated SKIN: Warm, no generalized rash, no ecchymoses and no evidence of embolic lesions. HEAD: Atraumatic. Normocephalic. No temporal wasting, or tenderness. EYES: [place] conjunctiva. No petechia or hemorrhage. Pupils equal, round and reactive to light. No scleral icterus. No injection or drainage. Orally intubated NECK: Trachea midline. Supple and not tender, no meningeal signs CARDIOVASCULAR: Irregular rate and rhythm. Soft heart sounds. No murmurs, rubs or gallops heard RESPIRATORY: Coarse breath sounds bilaterally. Decreased at the bases. ABDOMEN: Soft, no reaction to palpation, distended. Bowel sounds present and normoactive. EXTREMITIES: No clubbing, cyanosis, or edema. No joint effusion. 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
[2016-12-18] MEDS: LORazepam 1 MG TAB PO PRN (13:26)
--- NOTE | 2016-12-18 14:47 | HHI.HCPN ---
Reason for visit a. To assist with evaluation and management of symptoms including: dyspnea, seizure, malnutrition b. To assist medical decision maker(s) with: better understanding of current medical conditions; weighing benefits/burdens of medical treatment options; making medical treatment decisions. . Subjective/Interval History Patient seen and examined in ICU to follow-up on comfort, goals with family. Son , Josse and daughter, Asyia at bedside. Nurses at bedside. Patient just returned from MRI. Patient remains on mech vent, FiO2 50%. Color dusky today. Afebrile. Repeat CT yesterday afternoon, no change from previous CT scan. During the night the patient went into A. fib RVR was given Cardizem. Cardizem was discontinued with resumption of normal sinus rhythm. Patient was on Sy-Synephrine overnight, has since been DCd. MRI brain performed today showed findings consistent with most likely global anoxia. The patient was noted to have feculent material emanating from NG tube KUB performed resulted in no free air. NG tube to low continuous suction. Abdomen x-ray revealed no free air. Chest x-ray stable left basilar consolidation/effusion with minimal atelectasis changes of the right ashli diaphragm, stable cardiomegaly. Patient with intermittently labile blood pressures. Discussed with Dr. Carrasco. Left message for Dr. Loaiza to discuss repeat MRI results, awaiting return call. . Family/friend interactions But with patient's son, Josse and his girlfriend Lorna and daughter, Asiya with Dr. Carrasco at bedside to review repeat MRI results. Then spoke with patient 's son and daughter in consult room. They provided a handwritten note from the patient's spouse, Mrs. Chantal Carrasco indicating that she didn't not want to participate in health care proxy decision-making, she writes that she prefers that her children make medical decisions for the rest of his life. Medical update provided including repeat EEG and MRI results. Reviewed additional findings of inability to tolerate tube feeding, foul smelling gastric drainage and overall poor prognosis for meaningful recovery. I called Mrs. Chantal Carrasco who confirms that she wrote this note stating she does not wish to participate in medical decision-making. She did request a medical update of test results, reviewed MRI and repeat EEG results. Reviewed overall poor prognosis for meaningful recovery. She again tells me she wishes for her children Josse and Asiya to make medical decisions from now on. This conversation was witnessed by nurse, Marie and pulling unit floorhand, Pita. I then went to speak with Asiya and Josse again to notified my conversation with their mother who confirms she does not wish to participate in medical decision-making. Asiya and Josse have elected NO CODE status. They feel that their father would elect NO CODE in the setting of poor prognosis. They indicate that he would not want to live like this or in independent state. Both of them verbalize witnessing continued decline instead of clinical improvement throughout the hospitalization. There considering transition to comfort focused care and possible withdrawal of life support in the coming days. They would like to speak with neurology, Dr. Loaiza as per Dr. Carrasco and my recommendations for further prognostication guarding repeat MRI results. Questions answered to their satisfaction. Exhibits B&C placed on chart, Dr. Ward completed signature as specialty development consultant should the family wish to proceed with transition to comfort/withdrawal of life support over the weekend. . Advance Directives Living Will: Never completed Health Care Surrogate: Never completed Advance Directive Specifics Significant change in goals: NO CODE. Desires continued aggressive care at this time short of NO CODE. Considering possible transition to comfort focused care and withdrawal of life support in the coming days. . Objective Vital Signs Date Time Temp Pulse Resp B/P Pulse Ox O2 Delivery O2 Flow Rate FiO2 12/18/16 08:26 99 60 12/18/16 08:00 60 12/18/16 08:00 98.4 63 18 108/69 100 119/62 12/18/16 08:00 63 12/18/16 06:00 61 12/18/16 04:00 77 12/18/16 04:00 60 12/18/16 04:00 98.1 77 15 96/63 99 100/57 12/18/16 02:00 72 12/18/16 00:15 98 60 12/18/16 00:00 94 12/18/16 00:00 60 12/18/16 00:00 100.0 94 19 97/63 98 102/58 12/17/16 22:00 118 12/17/16 20:00 127 12/17/16 20:00 100.4 127 15 91/62 92 90/54 12/17/16 20:00 70 12/17/16 19:47 93 70 12/17/16 18:00 126 12/17/16 16:00 45 12/17/16 16:00 105 12/17/16 16:00 99.0 105 22 154/88 92 154/72 12/17/16 15:58 93 50 Intake & Output 12/18/16 12/18/16 07:00 19:00 Intake Total 2002 ml Output Total 925 ml Balance 1077 ml IV Total 1803 ml Tube Feeding 99 ml Other 100 ml Output Urine Total 925 ml Physical Exam CONSTITUTIONAL/GENERAL: This is an adequately nourished patient, comfortable mechanical vent TUBES/LINES/DRAINS: Central line right IJ, OG tube, ET tube, Muro catheter SKIN: dusky. skin temperature warmdistal feet cool. ENT: Nose without bleeding or purulent drainage. Unable to fully visualize oropharynx due to ET tube, OG tube CARDIOVASCULAR: Irregular rate and rhythm. RESPIRATORY/CHEST: Symmetric, labored respirations on mechanical vent. Scattered course breath sounds. GASTROINTESTINAL: OG to suctioning with foul-smelling fecal appearing drainage. Slightly distended. GENITOURINARY: Without palpable bladder distension. Muro catheter in place. MUSCULOSKELETAL: Extremities without clubbing, cyanosis, or edema. NEUROLOGICAL: Sedated on mechanical vent. Does not stir to my light touch or exam. Does not withdraw to pain. No eye opening to touch. PSYCHIATRIC: Limited exam due to clinical condition. No apparent anxiety. . Diagnostic Tests Laboratory Laboratory Tests Test 12/15/16 12/15/16 12/16/16 12/16/16 21:56 23:55 05:19 13:10 Activated Partial 41.5 SEC 41.9 SEC Thromboplast Time (24.3-30.1) (24.3-30.1) Vancomycin Level Trough 13.6 MCG/ML (5.0-10.0) White Blood Count 19.8 TH/MM3 (4.0-11.0) Red Blood Count 3.67 MIL/MM3 (4.50-5.90) Hemoglobin 11.8 GM/DL (13.0-17.0) Hematocrit 34.1 % (39.0-51.0) Mean Corpuscular Volume 92.8 FL (80.0-100.0) Mean Corpuscular Hemoglobin 32.2 PG (27.0-34.0) Mean Corpuscular Hemoglobin 34.7 % Concent (32.0-36.0) Red Cell Distribution Width 12.7 % (11.6-17.2) Platelet Count 168 TH/MM3 (150-450) Mean Platelet Volume 9.8 FL (7.0-11.0) Neutrophils (%) (Auto) 93.5 % (16.0-70.0) Lymphocytes (%) (Auto) 2.3 % (9.0-44.0) Monocytes (%) (Auto) 4.0 % (0.0-8.0) Eosinophils (%) (Auto) 0.0 % (0.0-4.0) Basophils (%) (Auto) 0.2 % (0.0-2.0) Neutrophils # (Auto) 18.5 TH/MM3 (1.8-7.7) Lymphocytes # (Auto) 0.4 TH/MM3 (1.0-4.8) Monocytes # (Auto) 0.8 TH/MM3 (0-0.9) Eosinophils # (Auto) 0.0 TH/MM3 (0-0.4) Basophils # (Auto) 0.0 TH/MM3 (0-0.2) CBC Comment DIFF FINAL Differential Comment Sodium Level 131 MEQ/L (136-145) Potassium Level 4.2 MEQ/L (3.5-5.1) Chloride Level 101 MEQ/L (98-107) Carbon Dioxide Level 21.5 MEQ/L (21.0-32.0) Anion Gap 9 MEQ/L (5-15) Blood Urea Nitrogen 49 MG/DL (7-18) Creatinine 1.22 MG/DL (0.60-1.30) Estimat Glomerular Filtration 60 ML/MIN (>89) Rate Random Glucose 180 MG/DL (74-106) Calcium Level 7.4 MG/DL (8.5-10.1) Protein Corrected Calcium 8.3 MG/DL (8.5-10.1) Phosphorus Level 3.4 MG/DL (2.5-4.9) Magnesium Level 3.1 MG/DL (1.5-2.5) Total Bilirubin 2.8 MG/DL (0.2-1.0) Aspartate Amino Transf 38 U/L (15-37) (AST/SGOT) Alanine Aminotransferase 39 U/L (12-78) (ALT/SGPT) Alkaline Phosphatase 81 U/L (45-117) Total Protein 5.5 GM/DL (6.4-8.2) Albumin 1.7 GM/DL (3.4-5.0) Lactic Acid Level 2.7 mmol/L (0.4-2.0) Test 12/17/16 12/17/16 12/17/16 12/18/16 04:46 05:12 20:35 01:00 Blood Gas Puncture Site JAIRON Blood Gas Patient Temperature 98.6 Blood Gas HCO3 20 mmol/L (22-26) Blood Gas Base Excess -3.9 mmol/L (-2-2) Blood Gas Oxygen Saturation 94 % (90-100) Arterial Blood pH 7.43 (7.380-7.420) Arterial Blood Partial 31 mmHg (38-42) Pressure CO2 Arterial Blood Partial 85 mmHg Pressure O2 (61-120) Arterial Blood Oxygen Content 22.4 Vol % (12.0-20.0) Arterial Blood 1.2 % (0-4) Carboxyhemoglobin Arterial Blood Methemoglobin 0.9 % (0-2) Blood Gas Hemoglobin 16.9 G/DL (12.0-16.0) Oxygen Delivery Device VENTILATOR Blood Gas Ventilator Setting SEE COMMENT Blood Gas Inspired Oxygen 50 % White Blood Count 15.3 TH/MM3 (4.0-11.0) Red Blood Count 3.29 MIL/MM3 (4.50-5.90) Hemoglobin 10.6 GM/DL (13.0-17.0) Hematocrit 30.6 % (39.0-51.0) Mean Corpuscular Volume 92.9 FL (80.0-100.0) Mean Corpuscular Hemoglobin 32.1 PG (27.0-34.0) Mean Corpuscular Hemoglobin 34.5 % Concent (32.0-36.0) Red Cell Distribution Width 13.1 % (11.6-17.2) Platelet Count 137 TH/MM3 (150-450) Mean Platelet Volume 9.2 FL (7.0-11.0) Activated Partial 34.9 SEC 34.8 SEC Thromboplast Time (24.3-30.1) (24.3-30.1) Sodium Level 136 MEQ/L (136-145) Potassium Level 4.0 MEQ/L (3.5-5.1) Chloride Level 103 MEQ/L (98-107) Carbon Dioxide Level 22.4 MEQ/L (21.0-32.0) Anion Gap 11 MEQ/L (5-15) Blood Urea Nitrogen 44 MG/DL (7-18) Creatinine 0.86 MG/DL (0.60-1.30) Estimat Glomerular Filtration 90 ML/MIN (>89) Rate Random Glucose 156 MG/DL (74-106) Calcium Level 7.6 MG/DL (8.5-10.1) Phosphorus Level 1.7 MG/DL (2.5-4.9) Magnesium Level 3.0 MG/DL (1.5-2.5) Vancomycin Level Trough 19.1 MCG/ML (5.0-10.0) Test 12/18/16 12/18/16 04:40 08:37 Activated Partial 39.0 SEC Thromboplast Time (24.3-30.1) Phosphorus Level 3.2 MG/DL (2.5-4.9) Result Diagram: 12/17/1651112/17/16511 Microbiology Microbiology Date/Time Procedure Status Source Growth 12/15/16 06:09 Aerobic Blood Culture - Preliminary Resulted Blood Peripheral NO GROWTH IN 3 DAYS 12/15/16 06:09 Anaerobic Blood Culture - Preliminary Resulted Blood Peripheral NO GROWTH IN 3 DAYS 12/14/16 11:30 Gram Stain - Final Complete Sputum Endotracheal 12/14/16 11:30 Sputum Culture - Final Complete Sputum Endotracheal HEAVY GROWTH NORMAL RESPIRATORY S[place]TA[place] 12/14/16 10:40 Streptococcus pneumoniae Antigen (M - Final Complete Urine Catheterized Urine PRESUMPTIVE NEGATIVE FOR STREPTOCOCCU... 12/14/16 10:40 Legionella Antigen - Final Complete Urine Catheterized Urine PRESUMPTIVE NEGATIVE FOR LEGIONELLA P... Imaging Last Impressions Brain MRI 12/18/16 0900 Signed Impressions: Service Date/Time: Sunday, December 18, 2016 11:07 - CONCLUSION: Diffuse abnormal diffusion signal within sulci and gyri of both hemispheres, the caudate, basal ganglia and cerebellar hemispheres. The findings are concerning for global and anoxia. This is significantly worse than seen on previous study. Bakari Vera MD Chest X-Ray 12/18/16 0600 Signed Impressions: Service Date/Time: Sunday, December 18, 2016 03:24 - CONCLUSION: 1. Stable left basilar consolidation/effusion with minimal atelectatic changes of the right hemidiaphragm. 2. Stable cardiomegaly. Stable position of life support tubes. Josse Cho MD Abdomen X-Ray 12/18/16 0000 Signed Impressions: Service Date/Time: Sunday, December 18, 2016 13:59 - CONCLUSION: Nasogastric tube is just cross the GE junction. There is no free air. Ang Vera MD FACR Head CT 12/17/16 0000 Signed Impressions: Service Date/Time: December 17:01 - CONCLUSION: 1. The study is degraded by streak and motion artifact limiting. 2. Stable area of decreased attenuation noted in the left basal ganglia. This appears to correspond to one of the areas of subacute infarction seen on MRI. 3. No definite acute hemorrhage or mass effect visualized. Mt Dodd MD Neck CTA 12/14/16 0000 Signed Impressions: Service Date/Time: Wednesday, December 14, 2016 04:20 - CONCLUSION: No significant stenoses in the carotids. Incidental note of bilateral pleural effusions and upper lobe emphysema. Aristeo Tellez MD Head CTA 12/14/16 0000 Signed Impressions: Service Date/Time: Wednesday, December 14, 2016 04:20 - CONCLUSION: Negative intracranial CTA. No evidence of vessel truncation. Airsteo Tellez MD Chest CT 12/12/16 0000 Signed Impressions: Service Date/Time: Monday, December 12, 2016 12:13 - CONCLUSION: 1. Small bilateral pleural effusions and subsegmental consolidating airspace disease in the bases. 2. Persistent small pericardial effusion. 3. No other significant abnormality. Roman Cordero MD Pericardiocentesis 12/08/16 0815 Signed Impressions: Service Date/Time: Thursday, December 08, 2016 08:43 - CONCLUSION: Uncomplicated CT-guided pericardial centesis as above. Roman Cordero MD Procedures 12/14femoral arterial line right, right IJ central line 12/08--to interventional radiology CT-guided pericardiocentesis . Assessment and Plan Disease Oriented Problem List: (1) V-tach Comment: Status post V. tach arrest (2) Acute CVA (cerebrovascular accident) Comment: Likely embolic (3) ACS (acute coronary syndrome) (4) STEMI (ST elevation myocardial infarction) (5) COPD (chronic obstructive pulmonary disease) (6) COPD exacerbation (7) Pericardial effusion (8) Atrial fibrillation with RVR (9) Lung consolidation (10) Hypertension (11) Hyponatremia (12) GERD (gastroesophageal reflux disease) (13) Hyperlipidemia (14) Leukocytosis (15) Diabetes Symptom Scale: (1) Dyspnea 0-10 Scale: Unable to quantify (2) Malnutrition 0-10 Scale: Unable to quantify Comment: Albumin 1.7. (3) Pain 0-10 Scale: Unable to quantify (4) Encephalopathy 0-10 Scale: Unable to quantify Pertinent Non-Medical Issues Psychosocial: . 1 son and 1 daughter. Spiritual: Unknown. Legal: Patient is not able to participate in decision-making due to clinical condition. Not clear if he will regain ability. No advanced directive or HCS. According to [place] statutes, health care proxy decision making falls to his spouse. On 12/18/16 wrote a note and verbally stated she DOES NOT wish to serve as healthcare proxy decision maker. Therefore according to [place] statutes health care proxy decision-making falls to the majority of adult children, he has one son and one daughter. Ethical issues impacting care: No known concerns at this time. . Important Contacts * Asiya, daughter: [phone] (co- HCP) * Josse Carrasco, son: [phone] (co- HCP) * Josse Smith's girlfriend: [phone] * Chantal Carrasco [phone] DOES NOT WANT TO SERVE HCP. * Brother Davey Carrasco [phone] . Prognosis This patient was admitted for chest pain, findings of atrial fib RVR, status post multiple ED visits for A. fib, chest pain, status post EPS ablation last month. This admission now with pericardial effusion, sepsis, multiple small areas of infarct per brain MRI, status post V. tach arrest 12/14. Now vented in ICU. High risk for ongoing complications and setbacks though possible patient can survive. Extent of recovery not known at this point, pending clinical course. . Code Status: No Code Plan * Legal decision maker: Patient is not able to participate in decision-making due to clinical condition. Not clear if he will regain ability. No advanced directive or HCS. According to [place] statutes, health care proxy decision making falls to his spouse. On 12/18/16 wrote a note (on chart) and verbally stated via phone that she DOES NOT wish to serve as healthcare proxy decision maker. Therefore according to [place] statutes health care proxy decision-making falls to the majority of adult children, he has one son, Josse and one daughter, Asiya. * I called Mrs. Chantal Carrasco who confirms that she wrote this note stating she does not wish to participate in medical decision-making. She did request a medical update of test results, reviewed MRI and repeat EEG results. Reviewed overall poor prognosis for meaningful recovery. She again tells me she wishes for her children Josse and Asiya to make medical decisions from now on. This conversation was witnessed by nurse, Marie and pulling unit floorhand, Pita. * Asiya and Josse were notified of my conversation with their mother (Chantal Carrasco, ) who confirms she does not wish to participate in medical decision -making. Asiya and Josse have elected NO CODE status. They feel that their father would elect NO CODE in the setting of poor prognosis. They indicate that he would not want to live like this or in a dependent state. Both of them verbalize witnessing continued decline, not clinical improvement throughout the hospitalization. There considering transition to comfort focused care and possible withdrawal of life support in the coming days. Children would like to speak with neurology, Dr. Loaiza as per Dr. Carrasco and my recommendations for further prognostication guarding repeat MRI results. * Exhibits B & C placed on chart, Dr. Ward completed signature as specialty development consultant should the family wish to proceed with transition to comfort/withdrawal of life support over the weekend. * NO CODE. * SYMPTOMS: --Dyspnea-emergently intubated during cardiac arrest 12/14, currently breathing comfortably on mechanical vent, fentanyl off --Malnutrition- OG tube in place, tube feeding begun at low rate. Bowel sounds hypoactive. tolerating TF. Albumin 1.9. Will continue to monitor. --Chest pain-patient presented with chest pain, multiple episodes of chest pain in the past months. Has required ongoing cardiac interventions secondary to ACS, STEMI, appears uncomfortable on Fentanyl drip. Propofol being restarted. Will monitor. -- Encephalopathy- + mult areas small infarct per initial MRI, now repeat MRI with global anoxia. [facility] On fentanyl, no evidence of neuro improvement. * Palliative care will continue to follow during hospital course as condition evolves, to assist patient/decision-maker with understanding of medical conditions, weighing benefits/burdens of treatment options, for clarification of goals of treatment. Additionally will assist with any symptoms of palliative concern. . Attestation To help prompt me to consider important information that might be impacting today's encounter and assessment, information from prior notes written by myself or my colleagues may have been "brought forward" into today's note. My signature on this note, however, is an attestation that I personally performed the exam, history, and/or decision-making noted today, and, unless otherwise indicated, the interactions with patient, family, and staff as well as the review of records all occurred today. I also attest that the listed assessment and stated plan reflect my best clinical judgment today based on the combination of historical information, prior notes, and today's exam/ interactions. When time spent is documented, it refers only to time spent today by the signer, or if indicated, combined time spent today by collaborating physician/nurse practitioner. Beronica Solomon Dec 18, 2016 14:47
--- NOTE | 2016-12-18 15:47 | HHI.PR ---
Review/Management Diagnosis multiple bilateral embolic strokes SZ Plan Prognosis very poor. I discussed this with pt's family Diagnosis/Plan: Daily Summary 12/[address] Steven yest after pt became unrespoionsive later in the night had a seizure spoke to RN this am and just spoke to dr Steven can start keppra, eeg, continue heparin echo not suggestive of vegetations, likely shower embolism from thrombus/a fib prognosis guarded Subjective Subjective Comments No acute events reported Active Medications Current Medications Medications (Trade) Dose Ordered Sig/Michelle Route Start Time Stop Time Status Last Admin (Lipitor) 40 mg HS PO 12/07/16 21:00 12/17/16 21:29 (Robitussin Liq) 200 mg Q4H PRN PO 12/08/16 12:15 Hold 12/09/16 04:38 (Cordarone) 200 mg DAILY PO 12/10/16 09:00 12/18/16 07:59 (Colchicine) 0.6 mg DAILY PO 12/11/16 09:00 12/18/16 08:21 (Imodium) 2 mg Q6H PRN PO 12/10/16 22:00 12/12/16 10:56 (Mucinex Er) 600 mg BID PO 12/11/16 21:00 Hold 12/14/16 22:18 (Phazyme Chew) 125 mg Q8HR PO 12/12/16 10:00 Hold 12/16/16 05:30 (Tylenol) 650 mg Q6H PRN PO 12/12/16 22:45 12/17/16 21:29 (Romazicon Inj) 0.2 mg Q1M PRN IV PUSH 12/13/16 06:30 (Ativan) 1 mg Q6H PRN PO 12/13/16 08:45 12/18/16 13:26 Miscellaneous Information Patient in critical care unit? Ass... Q361D .XX 12/14/16 06:30 12/14/16 06:26 (Chlorhexidine 2% Cloth) 3 pack DAILY@04 TOPICAL 12/15/16 04:00 12/19/16 04:01 12/18/16 03:04 Chlorhexidine Gluconate 3 pack 3 pack UNSCH PRN TOPICAL 12/14/16 06:30 12/19/16 06:24 Potassium Chloride 100 ml @ 50 mls/hr Q2H PRN IV 12/14/16 09:30 (KCl 20 Meq Premix Inj) 100 ml @ 50 mls/hr Q2H PRN IV 12/14/16 09:30 Potassium Bicarb/ Potassium Chloride 50 meq 50 meq UNSCH PRN PO 12/14/16 09:30 Potassium Chloride 100 ml @ 25 mls/hr UNSCH PRN IV 12/14/16 09:30 Potassium Chloride 100 ml @ 50 mls/hr Q2H PRN IV 12/14/16 09:30 (Magnesium Sulfate Inj/NS Inj) 100 ml @ 50 mls/hr UNSCH PRN IV 12/14/16 09:30 Magnesium Oxide 800 mg 800 mg UNSCH PRN PO 12/14/16 09:30 (Magnesium Sulfate Inj/NS Inj) 100 ml @ 50 mls/hr UNSCH PRN IV 12/14/16 09:30 Potassium Phosphate 2000 mg 2,000 mg Q4H PRN PO 12/14/16 09:30 (Sodium Phosphate Inj/NS 250 ml Inj) 250 ml @ 42 mls/hr UNSCH PRN IV 12/14/16 09:30 12/17/16 09:40 Potassium Phosphate 2000 mg 2,000 mg UNSCH PRN PO/TUBE 12/14/16 09:30 Potassium Phosphate 30 mmol/ Sodium Chloride 260 ml @ 42 mls/hr UNSCH PRN IV 12/14/16 09:30 Sodium Chloride 1,000 ml @ 0 mls/hr Q0M IV 12/14/16 10:00 12/16/16 14:09 (Zosyn 4.5 Gm Premix) 100 ml @ 200 mls/hr Q6H IV 12/14/16 10:00 12/18/16 10:00 (D50w (Vial) Inj) 50 ml UNSCH PRN IV 12/14/16 09:45 (Glucagon Inj) 1 mg UNSCH PRN OTHER 12/14/16 09:45 (NovoLIN R SUPPLEMENTAL SCALE) 1 Q4H SQ 12/14/16 10:00 12/18/16 10:17 (Protonix Inj) 40 mg Q24H IV PUSH 12/15/16 10:00 12/18/16 10:01 Hydrocortisone Sodium Succinate 50 mg 50 mg Q6H IV PUSH 12/14/16 15:00 12/18/16 08:00 Pharmacy Profile Note 0 ml @ 0 mls/hr UNSCH OTHER 12/14/16 10:45 Vasopressin 40 units/Dextrose 100 ml @ 4.5 mls/hr [id number] IV 12/14/16 10:38 12/17/16 14:30 (Levophed-Dextrose Drip) 250 ml @ 0 mls/hr TITRATE IV 12/14/16 11:15 12/16/16 05:21 (Brethine Inj) 1 mg UNSCH PRN SQ 12/14/16 11:15 (Aspirin Chew) 324 mg DAILY CHEW 12/15/16 09:00 12/18/16 07:59 Clopidogrel Bisulfate 75 mg 75 mg DAILY PO 12/15/16 09:00 12/18/16 07:59 Amiodarone HCl 450 mg/Dextrose 250 ml @ 0 mls/hr CONTINUOUS IV 12/15/16 04:00 12/16/16 05:21 (Keppra Inj/NS Inj) 105 ml @ 420 mls/hr Q12H IV 12/15/16 10:00 12/18/16 10:01 Lorazepam 1 mg 1 mg Q4H PRN IV PUSH 12/15/16 09:45 Heparin Sodium/ Dextrose 250 ml @ 0 mls/hr TITRATE IV 12/15/16 16:00 12/18/16 08:02 (Vancomycin Inj/ NS 250 ml Inj) 262.5 ml @ 250 mls/hr Q12H IV 12/16/16 13:00 12/18/16 13:15 (Tears Naturale Opth Soln) 1 drop Q4HR EACH EYE 12/16/16 09:45 12/18/16 13:15 Chlorhexidine Gluconate 15 ml 15 ml BID@08,20 MT 12/16/16 20:00 12/18/16 08:03 Fentanyl Citrate 250 ml @ 0 mls/hr TITRATE IV 12/17/16 15:30 12/18/16 10:02 Propofol 100 ml @ 0 mls/hr TITRATE IV 12/17/16 16:00 12/18/16 10:02 Diltiazem HCl 125 mg/Sodium Chloride 125 ml @ 0 mls/hr TITRATE IV 12/17/16 19:30 12/17/16 19:57 (Neosynephrine Inj/D5W 500 ml Inj) 500 ml @ 0 mls/hr TITRATE IV 12/17/16 22:30 (Brethine Inj) 1 mg UNSCH PRN SQ 12/17/16 22:30 Allergies Allergies Coded Allergies monosodium glutamate (Unverified Allergy, Intermediate, Hives, 12/15/16) Exam I&O / VS 12/17/16 12/17/16 12/18/16 14:59 22:59 06:59 Intake Total 1506 ml 1046 ml 956 ml Output Total 500 ml 650 ml 275 ml Balance 1006 ml 396 ml 681 ml IV Total 1049 ml 911 ml 892 ml Tube Feeding 337 ml 35 ml 64 ml Other 120 ml 100 ml Output Urine Total 500 ml 650 ml 275 ml # Bowel Movements 1 Vital Signs Date Time Temp Pulse Resp B/P Pulse Ox O2 Delivery O2 Flow Rate FiO2 12/18/16 15:16 92 100 12/18/16 10:30 93 100 12/18/16 08:26 99 60 12/18/16 08:00 60 12/18/16 08:00 98.4 63 18 108/69 100 119/62 12/18/16 08:00 63 12/18/16 06:00 61 12/18/16 04:00 77 12/18/16 04:00 60 12/18/16 04:00 98.1 77 15 96/63 99 100/57 12/18/16 02:00 72 12/18/16 00:15 98 60 12/18/16 00:00 94 12/18/16 00:00 60 12/18/16 00:00 100.0 94 19 97/63 98 102/58 12/17/16 22:00 118 12/17/16 20:00 127 12/17/16 20:00 100.4 127 15 91/62 92 90/54 12/17/16 20:00 70 12/17/16 19:47 93 70 12/17/16 18:00 126 12/17/16 16:00 45 12/17/16 16:00 105 12/17/16 16:00 99.0 105 22 154/88 92 154/72 12/17/16 15:58 93 50 Exam Comments nonresponsive PERRL EOM intact to occulocephalics. Motor -- no focal deficits, no spontaneous limb movement Objective Radiology Results MRI today shows probable laminar necrosis basal ganglia Micro and Labs Laboratory Tests Test 12/17/16 12/18/16 12/18/16 12/18/16 20:35 01:00 04:40 08:37 Activated Partial 34.8 39.0 Thromboplast Time Vancomycin Level Trough 19.1 Phosphorus Level 3.2 Date/Time Procedure Status Source Growth 12/15/16 06:09 Aerobic Blood Culture - Preliminary Resulted Blood Peripheral NO GROWTH IN 3 DAYS 12/15/16 06:09 Anaerobic Blood Culture - Preliminary Resulted Blood Peripheral NO GROWTH IN 3 DAYS 12/14/16 11:30 Gram Stain - Final Complete Sputum Endotracheal 12/14/16 11:30 Sputum Culture - Final Complete Sputum Endotracheal HEAVY GROWTH NORMAL RESPIRATORY SULTANA 12/14/16 10:40 Streptococcus pneumoniae Antigen (M - Final Complete Urine Catheterized Urine PRESUMPTIVE NEGATIVE FOR STREPTOCOCCU... 12/14/16 10:40 Legionella Antigen - Final Complete Urine Catheterized Urine PRESUMPTIVE NEGATIVE FOR LEGIONELLA P... Arun Loaiza PhD Dec 18, 2016 15:47
--- NOTE | 2016-12-18 15:48 | RADRPT ---
EXAM DATE/TIME: 12/18/2016 13:59 [facility] COMPARISON: No previous studies available for comparison. INDICATIONS : Abdominal distention. MEDICAL HISTORY : Gastroesophageal reflux disease. Diabetes mellitus type II. Carcinoma, prostatic. Atrial fibril lation. SURGICAL HISTORY : Tonsillectomy. ENCOUNTER: Initial ACUITY: 1 day PAIN SCORE: Non-responsive. LOCATION: Bilateral abdomen. FINDINGS: Nasogastric tube is just above the GE junction. No pneumothoraces are present in the left base. The right lung is clear. There is minimal colonic distention in nonspecific fashion. CONCLUSION: Nasogastric tube is just cross the GE junction. There is no free air. Ang Vera MD FACR on December 18, 2016 at 15:45 Board Certified Radiologist. This report was verified electronically.
[2016-12-18 16:30] LABS: APTT (PATIENT) 37.5 SEC (24.3-30.1)
--- NOTE | 2016-12-18 17:08 | HHI.CCPN ---
Subjective Remarks/Hospital Course The patient is a 66-year-old male with past medical history of chronic atrial fibrillation on Eliquis at home with multiple ablations in the past, COPD, diabetes mellitus, hypertension and gastroesophageal reflux disease. He was admitted on December [address] Mcdaniel's service for chest pain associated with shortness of breath and dyspepsia. He had chest x-ray on arrival which showed a right base infiltrate and possibility of pericardial effusion. He underwent CT-guided pericardiocentesis on December 08 with removal of 600 mL of pericardial fluid. CT scan of the chest was obtained on December 12 which showed small bilateral pleural effusion and consolidating airspace disease in the bases, in addition to persistent small pericardial effusion. No other significant abnormalities noted. During his hospital course he had an echocardiogram which showed LV systolic function low normal with EF of 50-55% and moderate pericardial effusion. Overnight the patient had acute neurologic Changes. Stroke alert was called as the patient was found to have left-sided hemiparesis and neurology service was consulted. The patient was seen by Dr. Andres and the patient was transferred from [facility] to the [facility] [place] [facility]. The patient initially was scheduled to undergo TPA, however, that was placed on hold as his neurologic status was improving. In addition he had a recent pericardial drainage. The patient was on Cardizem drip overnight at 15 mg an hour for atrial fibrillation with RVR and he was on 4 liters nasal cannula. However, the patient suddenly became unresponsive with agonal breathing, hypoxic with saturation in the 60s and he was found to be in V-tach arrest. He received one round of epi bicarb and was shocked x1 with 200 joules. The patient was intubated by myself and placed on full mechanical ventilation. ABG post intubation showed a pH of 7.34, CO2 41, pAO2 281, bicarb 21, saturation of 97% on assist control ventilation rate of 20, tidal volume 600, PEEP of and 100% FIO2. His labs from this morning showed an increase of troponin from 0.02 on December 12 to 6.02 this morning. From a neuro standpoint he had a stat CT scan of the brain earlier this morning which did not show any evidence of acute intracranial process. In addition a CTA of the neck showed no significant stenosis in the carotids and CT of the brain was negative as well. When doing the code the patient became hypotensive and was started on Levophed and is currently sedated with fentanyl. Subjective: 12/15 Patient remains intubated and sedated Levophed down 12 mics. He was given Amio bolus and placed on Amio drip last night. MRI brain showed numerous small acute or subacute bilateral cerebral and right cerebellar infarcts, no masses or hemorrhage. Patient had seizure last night and received Ativan. He was placed on Heparin drip. 12/16: Tmax 97.8. The patient remains on norepinephrine infusion at 12mcgs, inability to wean. Leukocytosis beginning to resolve. However noted worsening of left lower lobe consolidation this a.m. upon chest x-ray. Patient continues on amiodarone infusion with A. fib rate controlled. 12/17: No acute issues overnight. Patient has been weaned off vasopressin. Heparin infusion continues. Patient was weaned off of fentanyl for the last 24 hours stat EEG was performed. Fentanyl infusion resumed at low dose, for ventilator synchrony. This afternoon the patient was noted to have abruptly severe hypertension 237/111 with a heart rate of 106. Fentanyl bolus infusion increased, mannitol 25 g IV push given, propofol infusion added. Stat CT brain pending. 12/18: Repeat CT yesterday afternooon, no change from previous CT scan. BP normalized. During the night the patient went into A. fib RVR was given Cardizem.Cardizem was discontinued with resumption of normal sinus rhythm. Patient on Sy-Synephrine infusions. MRI brain performed today showed findings consistent with most likely global anoxia. The patient was noted to have feculent material emanating from NG tube KUB performed resulted in no free air. NG tube to low continuous suction. Objective Vital Signs Date Time Temp Pulse Resp B/P Pulse Ox O2 Delivery O2 Flow Rate FiO2 12/18/16 15:16 92 100 12/18/16 08:00 98.4 63 18 108/69 119/62 12/14/16 20:00 Mechanical Ventilator 12/14/16 08:09 4.00 Intake and Output 12/17/16 12/17/16 12/18/16 08:00 16:00 00:00 Intake Total 2183 ml 1506 ml 1046 ml Output Total 600 ml 500 ml 650 ml Balance 1583 ml 1006 ml 396 ml Result Diagram: 12/17/16 0512 12/17/16 0512 Imaging Last Impressions Chest X-Ray 12/16/16 Signed Impressions: Service Date/Time: Friday, December 16, 2016 04:31 - CONCLUSION: Interval increase in left lower lobe consolidation. Aristeo Tellez MD Neck CTA 12/14/16 Signed Impressions: Service Date/Time: Wednesday, December 14, 2016 04:20 - CONCLUSION: No significant stenoses in the carotids. Incidental note of bilateral pleural effusions and upper lobe emphysema. Aristeo Tellez MD Head CTA 12/14/16 Signed Impressions: Service Date/Time: Wednesday, December 14, 2016 04:20 - CONCLUSION: Negative intracranial CTA. No evidence of vessel truncation. Aristeo Tellez MD Head CT 12/14/16 Signed Impressions: Service Date/Time: Wednesday, December 14, 2016 14:56 - CONCLUSION: 1. There is a new 6 mm area low density in the left basal ganglia which could represent a recent area of ischemia. There is stable encephalomalacia in the right cerebellum. 2. Nonspecific punctate areas of air near the right cerebellum and left occipital region. These are of uncertain etiology but may be related to retrograde venous air. The air in the right cerebellar region is near the sinus. Since this is of uncertain etiology consider followup CT to assess for change. 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 No bleed, mass effect or midline shift. Davey Nicholas MD Chest CT 12/12/16 Signed Impressions: Service Date/Time: Monday, December 12, 2016 12:13 - CONCLUSION: 1. Small bilateral pleural effusions and subsegmental consolidating airspace disease in the bases. 2. Persistent small pericardial effusion. 3. No other significant abnormality. Roman Cordero MD Pericardiocentesis 12/08/16 0815 Signed Impressions: Service Date/Time: Thursday, December 08, 2016 08:43 - CONCLUSION: Uncomplicated CT-guided pericardial centesis as above. Roman Cordero MD Last Impressions Neck CTA 12/14/16 Signed Impressions: Service Date/Time: Wednesday, December 14, 2016 04:20 - CONCLUSION: No significant stenoses in the carotids. Incidental note of bilateral pleural effusions and upper lobe emphysema. Aristeo Tellez MD Head CTA 12/14/16 0000 Signed Impressions: Service Date/Time: Wednesday, December 14, 2016 04:20 - CONCLUSION: Negative intracranial CTA. No evidence of vessel truncation. Aristeo Tellez MD Head CT 12/14/16 0000 Signed Impressions: Service Date/Time: Wednesday, December 14, 2016 14:56 - CONCLUSION: 1. There is a new 6 mm area low density in the left basal ganglia which could represent a recent area of ischemia. There is stable encephalomalacia in the right cerebellum. 2. Nonspecific punctate areas of air near the right cerebellum and left occipital region. These are of uncertain etiology but may be related to retrograde venous air. The air in the right cerebellar region is near the sinus. Since this is of uncertain etiology consider followup CT to assess for change. Davey Hernandez MD Chest X-Ray 12/14/16 0000 Signed Impressions: Service Date/Time: Wednesday, December 14, 2016 09:26 - CONCLUSION: Support apparatus in good position. 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 No bleed, mass effect or midline shift. Davey Nicholas MD Chest CT 12/12/16 0000 Signed Impressions: Service Date/Time: Monday, December 12, 2016 12:13 - CONCLUSION: 1. Small bilateral pleural effusions and subsegmental consolidating airspace disease in the bases. 2. Persistent small pericardial effusion. 3. No other significant abnormality. Roman Cordero MD Pericardiocentesis 12/08/16 0815 Signed Impressions: Service Date/Time: Thursday, December 08, 2016 08:43 - CONCLUSION: Uncomplicated CT-guided pericardial centesis as above. Roman Cordero MD Objective Remarks Infusions: Heparin 1000 units/hour Fentanyl 250 mcgs/hr NS 75cc/hr BP 123/65 Pulse 65 O2 saturation 97% GENERAL: Patient is 66 yo critically ill intubated, and sedated SKIN: Warm and dry. HEAD: Normocephalic. EYES: No scleral icterus. No injection or drainage. NECK: Supple, trachea midline. No JVD or lymphadenopathy. Orally intubated CARDIOVASCULAR: Irregularly irregular rate. without murmurs, gallops, or rubs. RESPIRATORY: Mechanical ventilation Breath sounds equal bilaterally. No accessory muscle use. GASTROINTESTINAL: Abdomen soft, non-tender, nondistended. MUSCULOSKELETAL: No cyanosis, or edema. Neuro: GCS 3T Sedated, intubated-fentanyl infusion A/P Assessment and Plan 1. Status post V-tach arrest. 2. S/P CT-guided pericardiocentesis with removal of 600 mL pericardial fluid on December 08. 3. Atrial fibrillation with RVR 4. ACS with elevated troponins. 5. Acute CVA 6. Gram positive bacteremia 7. Septic shock 8. COPD. 9. Diabetes mellitus. 10. Leukocytosis. 11. History of prostate cancer. Plan Neuro: On Fentanyl drip for sedation and ventilator synchrony, resumed. Monitor neuro status. 12/17 Patient on fentanyl infusion for 24 hours, stat EEG performed. Patient was noted to open on a spontaneously. 12/14: MRI brain: Numerous mostly small acute or subacute bilateral cerebral and right cerebellar infarcts. No bleed, mass effect or midline shift CT brain: 6 mm area low density in the left basal ganglia which could represent a recent area of ischemia. There is stable encephalomalacia in the right cerebellum. . Nonspecific punctate areas of air near the right cerebellum and left occipital region CTA head, CTA neck: negative Check EEG today, place on Keppra 500mg IV Q12, Ativan PRN for seizures Discussed with Dr. Andres and Dr. Beth regarding continuation of Heparin drip given risk of ICH hemorrhagic conversion is high will continue with full anticoagulation for now as it is likely embolic stroke 12/17: Stat repeat CT pending, Mannitol 25 g Pulm: Continue with vent support and maintain sats > 92%. Bronchodilators, ICU vent bundle. CV:Monitor HR and BP maintain MAP > 65 mmHg. On stress dose steroids-50mg Q6, serial lactic acid monitoring s/p pericardiocentesis on 12/08 with 600 mL of pericardial fluid. Repeat echo 12/14: mod pericardial effusion with no pre tamponade physiology Echo 12/07: EF 50-55% YOANDY 12/16: EF 45-50%, low cardiac output, trace TR MR and AR. Small to moderate pericardial effusion Continue with ASA, Plavix, Lipitor, Heparin and Amio drips. Cards is following- Discussed with Dr. Beth. Might need YOANDY to r/o endocarditis 12/16- Levophed, Sy-Synephrine discontinued. 12/17 -vasopressin discontinued 12/17- A. fib RVR during the night Cardizem infusion, subsequently discontinued. Sy-Synephrine infusion reinstituted : Monitor renal function, I&O's and place on electrolyte replacement protocol. NS at 75 mL an hour. GI: On Protonix 40 mg IV daily for GI prophylaxis. Start tube feeds- Glucerna 1.5with goal rate 45ml/hr ID: Continue abx (Vanco, Zosyn) ID is following. Monitor for signs of infections ( Fever, WBC) 12/13 BC: GPC, strep Anginosus Follow up on Blood and sputum cx from 12/14 Strep pneumonia nad Legionella urinary Ag negative 12/14 Leukocytosis resolving WBC 19->15, continue to monitor Heme: Monitor CBC and coags- patient is on Heparin drip. Endo: SSI with Accu-Chek q. 4-hour for glycemic control. GI prophylaxis with Protonix 40 mg IV daily and DVT prophylaxis with SCDs, Heparin drip Palliative care following to assess with goals of care Lines: Right IJ CVP, Right femoral Art line placed 12/14 Patent is critically ill with resp failure, ACS, Atrial fib, septic shock, bacteremia and multiple ischemic infarcts on MRI brain. Dispo: Discussed with family(patient's children at bedside), [employer] at bedside. All questions answered. This patient remains critically ill with one or more organ systems which are or may become a threat to life. I have spent in excess of 30 minutes discontinuously in the care and management of this patient. This time is exclusive of procedures, and includes, but is not limited to, evaluation of the patient, review of the medical record, discussions with family, consultants, nursing staff, or respiratory therapy, and documentation in the medical record. Physician Hina Carrasco,Hina Gonzalez MD Dec 18, 2016 17:08
[2016-12-18] MEDS: PHENYLEPHRINE INJ 160 MG in DEXTROSE 5% IN WATE 500 ML INJ 484 ML IV SCH ×2 (20:54)
[2016-12-18] MEDS: ATORVASTATIN 40 MG TAB PO SCH (20:55)
--- NOTE | 2016-12-18 22:15 | HHI.PR ---
Subjective Remarks On mechanical ventilation Objective Vital Signs Date Time Temp Pulse Resp B/P Pulse Ox O2 Delivery O2 Flow Rate FiO2 12/18/16 20:00 100.5 99 22 93/57 98 12/18/16 20:00 100 12/18/16 20:00 99 12/18/16 19:31 97 100 12/18/16 18:00 97 12/18/16 16:00 98.8 100 26 83/55 92 Arterial Line 12/18/16 16:00 100 12/18/16 16:00 100 12/18/16 15:16 92 100 12/18/16 14:00 106 12/18/16 12:00 98.8 85 18 132/82 94 Arterial Line 12/18/16 12:00 60 12/18/16 12:00 85 12/18/16 10:30 93 100 12/18/16 10:00 65 12/18/16 08:26 99 60 12/18/16 08:00 60 12/18/16 08:00 98.4 63 18 108/69 100 119/62 12/18/16 08:00 63 12/18/16 06:00 61 12/18/16 04:00 77 12/18/16 04:00 60 12/18/16 04:00 98.1 77 15 96/63 99 100/57 12/18/16 02:00 72 12/18/16 00:15 98 60 12/18/16 00:00 94 12/18/16 00:00 60 12/18/16 00:00 100.0 94 19 97/63 98 102/58 I/O 12/17/16 12/17/16 12/17/16 12/18/16 12/18/16 12/18/16 07:00 15:00 23:00 07:00 15:00 23:00 Intake Total 2183 ml 1506 ml 1046 ml 956 ml 1206 ml Output Total 600 ml 500 ml 650 ml 275 ml 1075 ml Balance 1583 ml 1006 ml 396 ml 681 ml 131 ml IV Total 1835 ml 1049 ml 911 ml 892 ml 931 ml Tube Feeding 288 ml 337 ml 35 ml 64 ml 155 ml Other 60 ml 120 ml 100 ml 120 ml Output Urine Total 600 ml 500 ml 650 ml 275 ml 725 ml Gastric Drainage Total 350 ml Tube Feeding Residual Discard 0 ml # Bowel Movements 0 1 1 Result Diagram: 12/17/16 0512/17/16 05 Imaging Sedated, on mechanical ventilation Lungs: ventilated Heart: S1, S2 regular, no gallop Abdomen: soft, no mass Ext: no edema Last Impressions Brain MRI 12/18/16 0900 Signed Impressions: Service Date/Time: Sunday, December 18, 2016 11:07 - CONCLUSION: Diffuse abnormal diffusion signal within sulci and gyri of both hemispheres, the caudate, basal ganglia and cerebellar hemispheres. The findings are concerning for global and anoxia. This is significantly worse than seen on previous study. Bakari Vera MD Chest X-Ray 12/18/16 0600 Signed Impressions: Service Date/Time: Sunday, December 18, 2016 03:24 - CONCLUSION: 1. Stable left basilar consolidation/effusion with minimal atelectatic changes of the right hemidiaphragm. 2. Stable cardiomegaly. Stable position of life support tubes. Josse Cho MD Abdomen X-Ray 12/18/16 0000 Signed Impressions: Service Date/Time: Sunday, December 18, 2016 13:59 - CONCLUSION: Nasogastric tube is just cross the GE junction. There is no free air. Ang Vera MD FACR Head CT 12/17/16 0000 Signed Impressions: Service Date/Time: December 17:01 - CONCLUSION: 1. The study is degraded by streak and motion artifact limiting. 2. Stable area of decreased attenuation noted in the left basal ganglia. This appears to correspond to one of the areas of subacute infarction seen on MRI. 3. No definite acute hemorrhage or mass effect visualized. Mt Dodd MD Neck CTA 12/14/16 0000 Signed Impressions: Service Date/Time: Wednesday, December 14, 2016 04:20 - CONCLUSION: No significant stenoses in the carotids. Incidental note of bilateral pleural effusions and upper lobe emphysema. Aristeo Tellez MD Head CTA 12/14/16 0000 Signed Impressions: Service Date/Time: Wednesday, December 14, 2016 04:20 - CONCLUSION: Negative intracranial CTA. No evidence of vessel truncation. Aristeo Tellez MD Chest CT 12/12/16 0000 Signed Impressions: Service Date/Time: Monday, December 12, 2016 12:13 - CONCLUSION: 1. Small bilateral pleural effusions and subsegmental consolidating airspace disease in the bases. 2. Persistent small pericardial effusion. 3. No other significant abnormality. Roman Cordero MD Pericardiocentesis 12/08/16 0815 Signed Impressions: Service Date/Time: Thursday, December 08, 2016 08:43 - CONCLUSION: Uncomplicated CT-guided pericardial centesis as above. Roman Cordero MD Current Medications Medications (Trade) Dose Ordered Sig/Michelle Route Start Time Stop Time Status Last Admin (Lipitor) 40 mg HS PO 12/07/16 21:00 12/18/16 20:55 (Robitussin Liq) 200 mg Q4H PRN PO 12/08/16 12:15 Hold 12/09/16 04:38 (Cordarone) 200 mg DAILY PO 12/10/16 09:00 12/18/16 07:59 (Colchicine) 0.6 mg DAILY PO 12/11/16 09:00 12/18/16 08:21 (Imodium) 2 mg Q6H PRN PO 12/10/16 22:00 12/12/16 10:56 (Mucinex Er) 600 mg BID PO 12/11/16 21:00 Hold 12/14/16 22:18 (Phazyme Chew) 125 mg Q8HR PO 12/12/16 10:00 Hold 12/16/16 05:30 (Tylenol) 650 mg Q6H PRN PO 12/12/16 22:45 12/17/16 21:29 (Romazicon Inj) 0.2 mg Q1M PRN IV PUSH 12/13/16 06:30 (Ativan) 1 mg Q6H PRN PO 12/13/16 08:45 12/18/16 13:26 Miscellaneous Information Patient in critical care unit? Ass... [id number] .XX 12/14/16 06:30 12/14/16 06:26 (Chlorhexidine 2% Cloth) 3 pack DAILY@04 TOPICAL 12/15/16 04:00 12/19/16 04:01 12/18/16 03:04 Chlorhexidine Gluconate 3 pack 3 pack UNSCH PRN TOPICAL 12/14/16 06:30 12/19/16 06:24 Potassium Chloride 100 ml @ 50 mls/hr Q2H PRN IV 12/14/16 09:30 (KCl 20 Meq Premix Inj) 100 ml @ 50 mls/hr Q2H PRN IV 12/14/16 09:30 Potassium Bicarb/ Potassium Chloride 50 meq 50 meq UNSCH PRN PO 12/14/16 09:30 Potassium Chloride 100 ml @ 25 mls/hr UNSCH PRN IV 12/14/16 09:30 Potassium Chloride 100 ml @ 50 mls/hr Q2H PRN IV 12/14/16 09:30 (Magnesium Sulfate Inj/NS Inj) 100 ml @ 50 mls/hr UNSCH PRN IV 12/14/16 09:30 Magnesium Oxide 800 mg 800 mg UNSCH PRN PO 12/14/16 09:30 (Magnesium Sulfate Inj/NS Inj) 100 ml @ 50 mls/hr UNSCH PRN IV 12/14/16 09:30 Potassium Phosphate 2000 mg 2,000 mg Q4H PRN PO 12/14/16 09:30 (Sodium Phosphate Inj/NS 250 ml Inj) 250 ml @ 42 mls/hr UNSCH PRN IV 12/14/16 09:30 12/17/16 09:40 Potassium Phosphate 2000 mg 2,000 mg UNSCH PRN PO/TUBE 12/14/16 09:30 Potassium Phosphate 30 mmol/ Sodium Chloride 260 ml @ 42 mls/hr UNSCH PRN IV 12/14/16 09:30 Sodium Chloride 1,000 ml @ 0 mls/hr Q0M IV 12/14/16 10:00 12/16/16 14:09 (Zosyn 4.5 Gm Premix) 100 ml @ 200 mls/hr Q6H IV 12/14/16 10:00 12/18/16 20:56 (D50w (Vial) Inj) 50 ml UNSCH PRN IV 12/14/16 09:45 (Glucagon Inj) 1 mg UNSCH PRN OTHER 12/14/16 09:45 (NovoLIN R SUPPLEMENTAL SCALE) 1 Q4H SQ 12/14/16 10:00 12/18/16 10:17 (Protonix Inj) 40 mg Q24H IV PUSH 12/15/16 10:00 12/18/16 10:01 Hydrocortisone Sodium Succinate 50 mg 50 mg Q6H IV PUSH 12/14/16 15:00 12/18/16 20:55 Pharmacy Profile Note 0 ml @ 0 mls/hr UNSCH OTHER 12/14/16 10:45 Vasopressin 40 units/Dextrose 100 ml @ 4.5 mls/hr [id number] IV 12/14/16 10:38 12/17/16 14:30 (Levophed-Dextrose Drip) 250 ml @ 0 mls/hr TITRATE IV 12/14/16 11:15 12/16/16 05:21 (Brethine Inj) 1 mg UNSCH PRN SQ 12/14/16 11:15 (Aspirin Chew) 324 mg DAILY CHEW 12/15/16 09:00 12/18/16 07:59 Clopidogrel Bisulfate 75 mg 75 mg DAILY PO 12/15/16 09:00 12/18/16 07:59 Amiodarone HCl 450 mg/Dextrose 250 ml @ 0 mls/hr CONTINUOUS IV 12/15/16 04:00 12/16/16 05:21 (Keppra Inj/NS Inj) 105 ml @ 420 mls/hr Q12H IV 12/15/16 10:00 12/18/16 20:55 Lorazepam 1 mg 1 mg Q4H PRN IV PUSH 12/15/16 09:45 Heparin Sodium/ Dextrose 250 ml @ 0 mls/hr TITRATE IV 12/15/16 16:00 12/18/16 08:02 (Vancomycin Inj/ NS 250 ml Inj) 262.5 ml @ 250 mls/hr Q12H IV 12/16/16 13:00 12/18/16 13:15 (Tears Naturale Opth Soln) 1 drop Q4HR EACH EYE 12/16/16 09:45 12/18/16 19:25 Chlorhexidine Gluconate 15 ml 15 ml BID@08,20 MT 12/16/16 20:00 12/18/16 19:25 Fentanyl Citrate 250 ml @ 0 mls/hr TITRATE IV 12/17/16 15:30 12/18/16 10:02 Propofol 100 ml @ 0 mls/hr TITRATE IV 12/17/16 16:00 12/18/16 10:02 Diltiazem HCl 125 mg/Sodium Chloride 125 ml @ 0 mls/hr TITRATE IV 12/17/16 19:30 12/17/16 19:57 (Neosynephrine Inj/D5W 500 ml Inj) 500 ml @ 0 mls/hr TITRATE IV 12/17/16 22:30 12/18/16 20:54 (Brethine Inj) 1 mg UNSCH PRN SQ 12/17/16 22:30 Assessment and Plan Problem List: (1) Atrial fibrillation with RVR Status: Chronic Plan: In sinus rhythm HR control On mechanical ventilation Family at bed side Stable. Manage by sizing machine tender Continue with current medical management I will be available on a PRN basis. (2) Chest pain Status: Acute Plan: Sedated , on mechanical ventilation. No new ST changes Problem Qualifiers (1) Chest pain: Qualified Code: R07.9 - Chest pain, unspecified type Maria T Diamond MD Dec 18, 2016 22:15
[2016-12-18 23:16] LABS: APTT (PATIENT) 41.5 SEC (24.3-30.1)
[2016-12-19] VITALS (13 sets, daily range): BP systolic 85–124; BP diastolic 59–82; PULSE 73–120; RESP 12–21; TEMP 99–99.7; O2SAT 79–100
[2016-12-19] MEDS: VANCOMYCIN INJ 1,250 MG in SODIUM CHLOR 0.9% 250 ML INJ 250 ML IV SCH (00:49)
[2016-12-19] MEDS: PHENYLEPHRINE INJ 160 MG in DEXTROSE 5% IN WATE 500 ML INJ 484 ML IV SCH ×4 (00:59→08:32)
[2016-12-19] MEDS: VASOPRESSIN INJ 40 UNITS in DEXTROSE 5% IN WATER 100ML INJ 98 ML IV SCH ×2 (01:48)
[2016-12-19] MEDS: LORazepam 2 MG/ML VIAL IV PUSH PRN (02:12)
[2016-12-19] MEDS: INSULIN NovoLIN REGULAR SUPPLEMENTAL SCALE SQ SCH ×5 (02:24→17:59)
[2016-12-19] MEDS: PIPERACIL-TAZO 4.5 GM PREMIX 100 ML IV SCH ×2 (03:44→11:00)
[2016-12-19] MEDS: CHLORHEXIDINE GLUCONATE 2 % 1 PACK (2 CLOTHS)(taper/protocol) TOPICAL SCH (03:44)
[2016-12-19] MEDS: ARTIFICIAL TEARS OPTH SOLN 15 ML BTL EACH EYE SCH ×5 (03:45→16:00)
[2016-12-19] MEDS: HYDROCORTISONE SOD SUCCINATE 100 MG VIAL IV PUSH SCH ×3 (03:45→15:00)
--- NOTE | 2016-12-19 04:33 | RADRPT ---
EXAM DATE/TIME: 12/19/2016 03:22 [facility] COMPARISON: CHEST SINGLE AP, December 18, 2016, 3:24. INDICATIONS : Shortness of breath, possible pulmonary disease. MEDICAL HISTORY : Diabetes mellitus type II. Carcinoma, prostatic. Gastroesophageal reflux disease. A-fib SURGICAL HISTORY : Tonsillectomy. Cardiac ablation ENCOUNTER: Subsequent ACUITY: 2 weeks PAIN SCORE: Non-responsive. LOCATION: Bilateral chest FINDINGS: Endotracheal tube in satisfactory position. Nasogastric tube enters stomach. Right central line in bojorquez perior vena cava. Bilateral basilar airspace disease is similar to December 18. No pneumothorax. Proba ble small left effusion. CONCLUSION: 1. Bilateral mostly basilar airspace disease, left greater than right. Support apparatus in satisfact ory position. No significant change since December 18. Laurent Pool MD on December 19, 2016 at 4:31 Board Certified Radiologist. This report was verified electronically.
[2016-12-19 05:07] LABS: BLOOD GAS BASE EXCESS -8.5 mmol/L (-2-2); BLOOD GAS CARBOXYHEMOGLOBIN 1.1 % (0-4); BLOOD GAS HCO3 16 mmol/L (22-26); BLOOD GAS METHEMOGLOBIN 1.1 % (0-2); BLOOD GAS O2 HGB SATURATION 98 % (90-100); BLOOD GAS OXYGEN CONTENT 16.3 Vol % (12.0-20.0); BLOOD GAS PCO2 30 mmHg (38-42); BLOOD GAS PO2 272 mmHg (61-120); BLOOD GAS TOTAL HGB 11.4 G/DL (12.0-16.0); TEMP CORR TO 98.6
[2016-12-19 05:08] LABS: CRITICAL VALUE YES; DRAW SITE RT RADIAL; FIO2 100 %; OXYGEN DEVICE VENTILATOR; VENT SETTINGS PRVC20/600/1.0/+8
[2016-12-19 05:09] LABS: NUMBER OF ARTERIAL PUNCTURES 1; STAT NO; ULNAR PULSE PRESENT
[2016-12-19 05:11] LABS: HEMATOCRIT 32.6 % (39.0-51.0); MEAN CELL VOLUME 95.7 FL (80.0-100.0); MEAN CORPUSCULAR HEMOGLOBIN 31.1 PG (27.0-34.0); MEAN CORPUSCULAR HGB CONC 32.5 % (32.0-36.0); PLATELET COUNT 90 TH/MM3 (150-450); RED BLOOD COUNT 3.41 MIL/MM3 (4.50-5.90); RED CELL DISTRIBUTION WIDTH 13.4 % (11.6-17.2)
[2016-12-19 05:22] LABS: APTT (PATIENT) 45.6 SEC (24.3-30.1)
[2016-12-19] MEDS: HEPARIN-D5W 25,000 U/250 ML 250 ML IV SCH (05:30)
[2016-12-19] MEDS: fentaNYL DRIP 250 ML IV SCH (05:32)
[2016-12-19 05:40] LABS: BICARBONATE 18.2 MEQ/L (21.0-32.0); POTASSIUM 4.6 MEQ/L (3.5-5.1)
[2016-12-19 06:06] LABS: CALCIUM-PROTEIN CORRECTED 8.1 MG/DL (8.5-10.1)
[2016-12-19 06:42] LABS: REVIEW FLAG FINAL
[2016-12-19] MEDS: RESP: BUDESONIDE 0.5 MG/2 ML NEB NEB SCH (07:43)
[2016-12-19] MEDS: NOREPINEPHRINE-DEXTROSE DRIP 250 ML IV SCH (08:32)
[2016-12-19] MEDS: COLCHICINE 0.6 MG TAB PO SCH (09:00)
--- NOTE | 2016-12-19 09:25 | HHI.CCPN ---
Subjective Remarks/Hospital Course The patient is a 66-year-old male with past medical history of chronic atrial fibrillation on Eliquis at home with multiple ablations in the past, COPD, diabetes mellitus, hypertension and gastroesophageal reflux disease. He was admitted on December [address] Mcdaniel's service for chest pain associated with shortness of breath and dyspepsia. He had chest x-ray on arrival which showed a right base infiltrate and possibility of pericardial effusion. He underwent CT-guided pericardiocentesis on December 08 with removal of 600 mL of pericardial fluid. CT scan of the chest was obtained on December 12 which showed small bilateral pleural effusion and consolidating airspace disease in the bases, in addition to persistent small pericardial effusion. No other significant abnormalities noted. During his hospital course he had an echocardiogram which showed LV systolic function low normal with EF of 50-55% and moderate pericardial effusion. Overnight the patient had acute neurologic Changes. Stroke alert was called as the patient was found to have left-sided hemiparesis and neurology service was consulted. The patient was seen by Dr. Andres and the patient was transferred from [facility] to the [facility] [place]. The patient initially was scheduled to undergo TPA, however, that was placed on hold as his neurologic status was improving. In addition he had a recent pericardial drainage. The patient was on Cardizem drip overnight at 15 mg an hour for atrial fibrillation with RVR and he was on 4 liters nasal cannula. However, the patient suddenly became unresponsive with agonal breathing, hypoxic with saturation in the 60s and he was found to be in V-tach arrest. He received one round of epi bicarb and was shocked x1 with 200 joules. The patient was intubated by myself and placed on full mechanical ventilation. ABG post intubation showed a pH of 7.34, CO2 41, pAO2 281, bicarb 21, saturation of 97% on assist control ventilation rate of 20, tidal volume 600, PEEP of and 100% FIO2. His labs from this morning showed an increase of troponin from 0.02 on December 12 to 6.02 this morning. From a neuro standpoint he had a stat CT scan of the brain earlier this morning which did not show any evidence of acute intracranial process. In addition a CTA of the neck showed no significant stenosis in the carotids and CT of the brain was negative as well. When doing the code the patient became hypotensive and was started on Levophed and is currently sedated with fentanyl. Subjective: 12/15 Patient remains intubated and sedated Levophed down 12 mics. He was given Amio bolus and placed on Amio drip last night. MRI brain showed numerous small acute or subacute bilateral cerebral and right cerebellar infarcts, no masses or hemorrhage. Patient had seizure last night and received Ativan. He was placed on Heparin drip. 12/16: Tmax 97.8. The patient remains on norepinephrine infusion at 12mcgs, inability to wean. Leukocytosis beginning to resolve. However noted worsening of left lower lobe consolidation this a.m. upon chest x-ray. Patient continues on amiodarone infusion with A. fib rate controlled. 12/17: No acute issues overnight. Patient has been weaned off vasopressin. Heparin infusion continues. Patient was weaned off of fentanyl for the last 24 hours stat EEG was performed. Fentanyl infusion resumed at low dose, for ventilator synchrony. This afternoon the patient was noted to have abruptly severe hypertension 237/111 with a heart rate of 106. Fentanyl bolus infusion increased, mannitol 25 g IV push given, propofol infusion added. Stat CT brain pending. 12/18: Repeat CT yesterday afternoon, no change from previous CT scan. BP normalized. During the night the patient went into A. fib RVR was given Cardizem.Cardizem was discontinued with resumption of normal sinus rhythm. Patient on Sy-Synephrine infusions. MRI brain performed today showed findings consistent with most likely global anoxia. The patient was noted to have feculent material emanating from NG tube KUB performed resulted in no free air. NG tube to low continuous suction. 12/19: Hemodynamic instability during the night, required vasopressor resumption , currently phenylephrine and norepinephrine. Noted severe metabolic acidosis this a.m. , Bicarbonate level 16. Sodium bicarbonate infusion instituted. Discussion with family per palliative care team plans for comfort care measures and ventilator withdrawal today. Objective Vital Signs Date Time Temp Pulse Resp B/P Pulse Ox O2 Delivery O2 Flow Rate FiO2 12/19/16 07:44 99 80 12/19/16 06:00 102 12/19/16 04:00 99.0 20 87/61 Intake and Output 12/18/16 12/18/16 12/19/16 08:00 16:00 00:00 Intake Total 956 ml 1206 ml 670 ml Output Total 275 ml 1075 ml 225 ml Balance 681 ml 131 ml 445 ml Result Diagram: 12/19/16 0450 12/19/16 0450 Other Results Laboratory Tests Test 12/19/16 04:52 Blood Gas Puncture Site RT RADIAL Blood Gas Patient Temperature 98.6 Blood Gas HCO3 16 mmol/L (22-26) Blood Gas Base Excess -8.5 mmol/L (-2-2) Blood Gas Oxygen Saturation 98 % (90-100) Arterial Blood pH 7.35 (7.380-7.420) Arterial Blood Partial 30 mmHg (38-42) Pressure CO2 Arterial Blood Partial 272 mmHg Pressure O2 (61-120) Arterial Blood Oxygen Content 16.3 Vol % (12.0-20.0) Arterial Blood 1.1 % (0-4) Carboxyhemoglobin Arterial Blood Methemoglobin 1.1 % (0-2) Blood Gas Hemoglobin 11.4 G/DL (12.0-16.0) Oxygen Delivery Device VENTILATOR Blood Gas Ventilator Setting PRVC20/600/1.0/+8 Blood Gas Inspired Oxygen 100 % Imaging Last Impressions Chest X-Ray 12/19/16 0600 Signed Impressions: Service Date/Time: Monday, December 19, 2016 03:22 - CONCLUSION: 1. Bilateral mostly basilar airspace disease, left greater than right. Support apparatus in satisfactory position. No significant change since December 18. Laurent Pool MD Brain MRI 12/18/16 0900 Signed Impressions: Service Date/Time: Sunday, December 18, 2016 11:07 - CONCLUSION: Diffuse abnormal diffusion signal within sulci and gyri of both hemispheres, the caudate, basal ganglia and cerebellar hemispheres. The findings are concerning for global and anoxia. This is significantly worse than seen on previous study. Bakari Vera MD Abdomen X-Ray 12/18/16 0000 Signed Impressions: Service Date/Time: Sunday, December 18, 2016 13:59 - CONCLUSION: Nasogastric tube is just cross the GE junction. There is no free air. Ang Vera MD FACR Head CT 12/17/16 0000 Signed Impressions: Service Date/Time: December 17:01 - CONCLUSION: 1. The study is degraded by streak and motion artifact limiting. 2. Stable area of decreased attenuation noted in the left basal ganglia. This appears to correspond to one of the areas of subacute infarction seen on MRI. 3. No definite acute hemorrhage or mass effect visualized. Mt Dodd MD Neck CTA 12/14/16 0000 Signed Impressions: Service Date/Time: Wednesday, December 14, 2016 04:20 - CONCLUSION: No significant stenoses in the carotids. Incidental note of bilateral pleural effusions and upper lobe emphysema. Aristeo Tellez MD Head CTA 12/14/16 Signed Impressions: Service Date/Time: Wednesday, December 14, 2016 04:20 - CONCLUSION: Negative intracranial CTA. No evidence of vessel truncation. Aristeo Tellez MD Chest CT 12/12/16 0000 Signed Impressions: Service Date/Time: Monday, December 12, 2016 12:13 - CONCLUSION: 1. Small bilateral pleural effusions and subsegmental consolidating airspace disease in the bases. 2. Persistent small pericardial effusion. 3. No other significant abnormality. Roman Cordero MD Pericardiocentesis 12/08/16 0815 Signed Impressions: Service Date/Time: Thursday, December 08, 2016 08:43 - CONCLUSION: Uncomplicated CT-guided pericardial centesis as above. Roman Cordero MD Last Impressions Chest X-Ray 12/16/16 Signed Impressions: Service Date/Time: Friday, December 16, 2016 04:31 - CONCLUSION: Interval increase in left lower lobe consolidation. Aristeo Tellez MD Neck CTA 12/14/16 Signed Impressions: Service Date/Time: Wednesday, December 14, 2016 04:20 - CONCLUSION: No significant stenoses in the carotids. Incidental note of bilateral pleural effusions and upper lobe emphysema. Aristeo Tellez MD Head CTA 12/14/16 0000 Signed Impressions: Service Date/Time: Wednesday, December 14, 2016 04:20 - CONCLUSION: Negative intracranial CTA. No evidence of vessel truncation. Aristeo Tellez MD Head CT 12/14/16 0000 Signed Impressions: Service Date/Time: Wednesday, December 14, 2016 14:56 - CONCLUSION: 1. There is a new 6 mm area low density in the left basal ganglia which could represent a recent area of ischemia. There is stable encephalomalacia in the right cerebellum. 2. Nonspecific punctate areas of air near the right cerebellum and left occipital region. These are of uncertain etiology but may be related to retrograde venous air. The air in the right cerebellar region is near the sinus. Since this is of uncertain etiology consider followup CT to assess for change. Davey Hernandez MD Brain MRI 12/14/16 0000 Signed Impressions: Service Date/Time: Wednesday, December 14, 2016 17:58 - CONCLUSION: Numerous mostly small acute or subacute bilateral cerebral and right cerebellar infarcts as described above. No bleed, mass effect or midline shift. Davey Nicholas MD Chest CT 12/12/16 0000 Signed Impressions: Service Date/Time: Monday, December 12, 2016 12:13 - CONCLUSION: 1. Small bilateral pleural effusions and subsegmental consolidating airspace disease in the bases. 2. Persistent small pericardial effusion. 3. No other significant abnormality. Roman Cordero MD Pericardiocentesis 12/08/16 0815 Signed Impressions: Service Date/Time: Thursday, December 08, 2016 08:43 - CONCLUSION: Uncomplicated CT-guided pericardial centesis as above. Roman Cordero MD Last Impressions Neck CTA 12/14/16 0000 Signed Impressions: Service Date/Time: Wednesday, December 14, 2016 04:20 - CONCLUSION: No significant stenoses in the carotids. Incidental note of bilateral pleural effusions and upper lobe emphysema. Aristeo Tellez MD Head CTA 12/14/16 0000 Signed Impressions: Service Date/Time: Wednesday, December 14, 2016 04:20 - CONCLUSION: Negative intracranial CTA. No evidence of vessel truncation. Aristeo Tellez MD Head CT 12/14/16 0000 Signed Impressions: Service Date/Time: Wednesday, December 14, 2016 14:56 - CONCLUSION: 1. There is a new 6 mm area low density in the left basal ganglia which could represent a recent area of ischemia. There is stable encephalomalacia in the right cerebellum. 2. Nonspecific punctate areas of air near the right cerebellum and left occipital region. These are of uncertain etiology but may be related to retrograde venous air. The air in the right cerebellar region is near the sinus. Since this is of uncertain etiology consider followup CT to assess for change. Davey Hernandez MD Chest X-Ray 12/14/16 0000 Signed Impressions: Service Date/Time: Wednesday, December 14, 2016 09:26 - CONCLUSION: Support apparatus in good position. 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 No bleed, mass effect or midline shift. Davey Nicholas MD Chest CT 12/12/16 0000 Signed Impressions: Service Date/Time: Monday, December 12, 2016 12:13 - CONCLUSION: 1. Small bilateral pleural effusions and subsegmental consolidating airspace disease in the bases. 2. Persistent small pericardial effusion. 3. No other significant abnormality. Roman Cordero MD Pericardiocentesis 12/08/16 0815 Signed Impressions: Service Date/Time: Thursday, December 08, 2016 08:43 - CONCLUSION: Uncomplicated CT-guided pericardial centesis as above. Roman Cordero MD Objective Remarks Infusions: Heparin 1300 units/hour Fentanyl 100 mcgs/hr NaHCO3 100cc/hr BP 118/71 Pulse 108 O2 saturation 99% GENERAL: Patient is 66 yo critically ill intubated, and sedated SKIN: Warm and dry. HEAD: Normocephalic. EYES: No scleral icterus. No injection or drainage. NECK: Supple, trachea midline. No JVD or lymphadenopathy. Orally intubated CARDIOVASCULAR: Irregularly irregular rate. without murmurs, gallops, or rubs. RESPIRATORY: Mechanical ventilation. Clear to auscultation bilaterally .Breath sounds equal bilaterally. No accessory muscle use. GASTROINTESTINAL: Abdomen soft, non-tender, mild abdominal distension, hypo- active bowel sounds MUSCULOSKELETAL: No cyanosis, or edema. Neuro: GCS 3T Sedated, intubated-fentanyl infusion . Off sedation spontaneous eye opening, does not track or follow. No motor activity. A/P Assessment and Plan 1. Status post V-tach arrest. 2. S/P CT-guided pericardiocentesis with removal of 600 mL pericardial fluid on December 08. 3. Atrial fibrillation with RVR 4. ACS with elevated troponins. 5. Acute CVA 6. Gram positive bacteremia 7. Septic shock 8. COPD. 9. Diabetes mellitus. 10. Leukocytosis. 11. History of prostate cancer. 12. Severe metabolic acidosis Plan Neuro: On Fentanyl drip for sedation and ventilator synchrony, resumed. Monitor neuro status. 12/17 Patient on fentanyl infusion for 24 hours, stat EEG performed. Patient was noted to open on a spontaneously. 12/14: MRI brain: Numerous mostly small acute or subacute bilateral cerebral and right cerebellar infarcts. No bleed, mass effect or midline shift CT brain: 6 mm area low density in the left basal ganglia which could represent a recent area of ischemia. There is stable encephalomalacia in the right cerebellum. . Nonspecific punctate areas of air near the right cerebellum and left occipital region CTA head, CTA neck: negative Check EEG today, place on Keppra 500mg IV Q12, Ativan PRN for seizures Discussed with Dr. Andres and Dr. Beth regarding continuation of Heparin drip given risk of ICH hemorrhagic conversion is high will continue with full anticoagulation for now as it is likely embolic stroke 12/17: Repeat CT brain- unchanged , Mannitol 25 g Pulm: Continue with vent support and maintain sats > 92%. Bronchodilators, ICU vent bundle. 12/19-ABG 7.35/30/272/16/-8.5 CV:Monitor HR and BP maintain MAP > 65 mmHg. On stress dose steroids-50mg Q6, serial lactic acid monitoring s/p pericardiocentesis on 12/08 with 600 mL of pericardial fluid. Repeat echo 12/14: mod pericardial effusion with no pre tamponade physiology Echo 12/07: EF 50-55% YOANDY 12/16: EF 45-50%, low cardiac output, trace TR MR and AR. Small to moderate pericardial effusion Continue with ASA, Plavix, Lipitor, Heparin and Amio drips. Cards is following- Discussed with Dr. Beth. Might need YOANDY to r/o endocarditis 12/16- Levophed, Sy-Synephrine discontinued. 12/17 -vasopressin discontinued 12/17- A. fib RVR during the night Cardizem infusion, subsequently discontinued. Sy-Synephrine infusion reinstituted : Monitor renal function, I&O's and place on electrolyte replacement protocol. 12/19- and bicarbonate infusion 100 cc an hour GI: On Protonix 40 mg IV daily for GI prophylaxis. Maintain nothing by mouth status, NG tube to LIWS 12/19-KUB noted no free air ID: Continue abx (Vanco, Zosyn) ID is following. Monitor for signs of infections ( Fever, WBC) 12/13 BC: GPC, strep Anginosus Follow up on Blood and sputum cx from 12/14 Strep pneumonia nad Legionella urinary Ag negative 12/14 Leukocytosis resolving WBC 19->15, continue to monitor Heme: Monitor CBC and coags- patient is on Heparin drip. Endo: SSI with Accu-Chek q. 4-hour for glycemic control. GI prophylaxis with Protonix 40 mg IV daily and DVT prophylaxis with SCDs, Heparin drip Palliative care following -tentative plan for comfort care measures and ventilator withdrawal today. Lines: Right IJ CVP, Right femoral Art line placed 12/14 Patent is critically ill with resp failure, ACS, Atrial fib, septic shock, bacteremia and multiple ischemic infarcts on MRI brain. Dispo: Discussed with Dr. Barth, and [employer] at bedside. All questions answered. This patient remains critically ill with one or more organ systems which are or may become a threat to life. I have spent in excess of 30 minutes discontinuously in the care and management of this patient. This time is exclusive of procedures, and includes, but is not limited to, evaluation of the patient, review of the medical record, discussions with family, consultants, nursing staff, or respiratory therapy, and documentation in the medical record. Physician Hina Worley MD Dec 19, 2016 09:25
[2016-12-19] MEDS: SODIUM BICARBONATE 8.4% INJ 150 MEQ in SODIUM CHLOR 0.9% 1000 ML INJ 850 ML IV SCH (09:30)
[2016-12-19] MEDS: levETIRAcetam INJ 500 MG in SODIUM CHLORIDE 0.9% INJ 100 ML IV SCH (09:30)
[2016-12-19] MEDS: ASPIRIN 81 MG CHEW TAB CHEW SCH (09:31)
[2016-12-19] MEDS: CLOPIDOGREL 75 MG TAB PO SCH (09:31)
[2016-12-19] MEDS: PANTOPRAZOLE SODIUM 40 MG VIAL IV PUSH SCH (09:31)
[2016-12-19] MEDS: AMIODARONE 200 MG TAB PO SCH (09:31)
[2016-12-19] MEDS: CHLORHEXIDINE 0.12% (ORAL KIT) 15 ML CUP MT SCH (09:32)
[2016-12-19] MEDS ORDERED: MORPHINE SULFATE 8 MG/ML INJ IV PUSH ONE (11:15)
[2016-12-19] MEDS ORDERED: LORazepam 2 MG/ML VIAL IV ONE ×2 (11:15→11:30)
[2016-12-19] MEDS ORDERED: HYOSCYAMINE 0.5 MG/ML AMP IV ONE (11:15)
[2016-12-19] MEDS ORDERED: MORPHINE SULFATE 4 MG/ML INJ IV ONE (11:30)
[2016-12-19] MEDS ORDERED: MORPHINE SULFATE 8 MG/ML INJ IV PUSH PRN (11:45)
[2016-12-19] MEDS ORDERED: LORazepam 2 MG/ML VIAL IV PRN (11:45)
[2016-12-19] MEDS ORDERED: BISACODYL 10 MG SUPP RECTAL PRN (11:45)
[2016-12-19] MEDS ORDERED: FUROSEMIDE 20 MG/2 ML VIAL IV PRN (11:45)
[2016-12-19] MEDS ORDERED: LORazepam 2 MG/ML VIAL IVS PRN (11:45)
[2016-12-19] MEDS: MORPHINE SULFATE 4 MG/ML INJ IV SCH ×2 (12:37→15:52)
[2016-12-19] MEDS: LORazepam 2 MG/ML VIAL IV SCH ×2 (12:37→15:52)
[2016-12-19] MEDS: MORPHINE SULFATE 4 MG/ML INJ IV PRN ×2 (13:42→18:44)
[2016-12-19] MEDS: LORazepam 2 MG/ML VIAL IV PRN ×2 (13:42→18:45)
[2016-12-19] MEDS ORDERED: PIPERACIL-TAZO 3.375 GM PREMIX 50 ML IV SCH (17:00)
[2016-12-20] VITALS (10 sets, daily range): BP systolic 89–98; BP diastolic 59–65; PULSE 71–97; RESP 12–28; TEMP 97–97.8; O2SAT 22–78
[2016-12-20] MEDS: SODIUM BICARBONATE 8.4% INJ 150 MEQ in SODIUM CHLOR 0.9% 1000 ML INJ 850 ML IV SCH (06:00)
--- NOTE | 2016-12-20 06:36 | HHI.CCPN ---
Subjective Remarks/Hospital Course The patient is a 66-year-old male with past medical history of chronic atrial fibrillation on Eliquis at home with multiple ablations in the past, COPD, diabetes mellitus, hypertension and gastroesophageal reflux disease. He was admitted on December [address] Mcdaniel's service for chest pain associated with shortness of breath and dyspepsia. He had chest x-ray on arrival which showed a right base infiltrate and possibility of pericardial effusion. He underwent CT-guided pericardiocentesis on December 08 with removal of 600 mL of pericardial fluid. CT scan of the chest was obtained on December 12 which showed small bilateral pleural effusion and consolidating airspace disease in the bases, in addition to persistent small pericardial effusion. No other significant abnormalities noted. During his hospital course he had an echocardiogram which showed LV systolic function low normal with EF of 50-55% and moderate pericardial effusion. Overnight the patient had acute neurologic Changes. Stroke alert was called as the patient was found to have left-sided hemiparesis and neurology service was consulted. The patient was seen by Dr. Andres and the patient was transferred from [facility] [place] [facility] The patient initially was scheduled to undergo TPA, however, that was placed on hold as his neurologic status was improving. In addition he had a recent pericardial drainage. The patient was on Cardizem drip overnight at 15 mg an hour for atrial fibrillation with RVR and he was on 4 liters nasal cannula. However, the patient suddenly became unresponsive with agonal breathing, hypoxic with saturation in the 60s and he was found to be in V-tach arrest. He received one round of epi bicarb and was shocked x1 with 200 joules. The patient was intubated by myself and placed on full mechanical ventilation. ABG post intubation showed a pH of 7.34, CO2 41, pAO2 281, bicarb 21, saturation of 97% on assist control ventilation rate of 20, tidal volume 600, PEEP of and 100% FIO2. His labs from this morning showed an increase of troponin from 0.02 on December 12 to 6.02 this morning. From a neuro standpoint he had a stat CT scan of the brain earlier this morning which did not show any evidence of acute intracranial process. In addition a CTA of the neck showed no significant stenosis in the carotids and CT of the brain was negative as well. When doing the code the patient became hypotensive and was started on Levophed and is currently sedated with fentanyl. Subjective: 12/15 Patient remains intubated and sedated Levophed down 12 mics. He was given Amio bolus and placed on Amio drip last night. MRI brain showed numerous small acute or subacute bilateral cerebral and right cerebellar infarcts, no masses or hemorrhage. Patient had seizure last night and received Ativan. He was placed on Heparin drip. 12/16: Tmax 97.8. The patient remains on norepinephrine infusion at 12mcgs, inability to wean. Leukocytosis beginning to resolve. However noted worsening of left lower lobe consolidation this a.m. upon chest x-ray. Patient continues on amiodarone infusion with A. fib rate controlled. 12/17: No acute issues overnight. Patient has been weaned off vasopressin. Heparin infusion continues. Patient was weaned off of fentanyl for the last 24 hours stat EEG was performed. Fentanyl infusion resumed at low dose, for ventilator synchrony. This afternoon the patient was noted to have abruptly severe hypertension 237/111 with a heart rate of 106. Fentanyl bolus infusion increased, mannitol 25 g IV push given, propofol infusion added. Stat CT brain pending. 12/18: Repeat CT yesterday afternoon, no change from previous CT scan. BP normalized. During the night the patient went into A. fib RVR was given Cardizem.Cardizem was discontinued with resumption of normal sinus rhythm. Patient on Sy-Synephrine infusions. MRI brain performed today showed findings consistent with most likely global anoxia. The patient was noted to have feculent material emanating from NG tube KUB performed resulted in no free air. NG tube to low continuous suction. 12/19: Hemodynamic instability during the night, required vasopressor resumption , currently phenylephrine and norepinephrine. Noted severe metabolic acidosis this a.m. , Bicarbonate level 16. Sodium bicarbonate infusion instituted. Concern for possible mesenteric ischemia addressed with family. Discussion with family per palliative care team plans for comfort care measures and ventilator withdrawal today. 12/20: Comfort care measures were instituted yesterday at midday. Family at bedside currently. Tentative plans for transfer to Hospice/ medical floor today. Objective Vital Signs Date Time Temp Pulse Resp B/P Pulse Ox O2 Delivery O2 Flow Rate FiO2 12/19/16 20:00 75 12/19/16 20:00 12 85/62 93 12/19/16 12:33 Room Air 12/19/16 12:00 80 12/19/16 08:00 99.6 Intake and Output 12/19/16 12/19/16 12/20/16 08:00 16:00 00:00 Intake Total 1761 ml 1631 ml Output Total 150 ml 550 ml Balance 1611 ml 1081 ml Result Diagram: 12/19/16 0450 12/19/16 0450 Imaging Last Impressions Chest X-Ray 12/19/16 0600 Signed Impressions: Service Date/Time: Monday, December 19, 2016 03:22 - CONCLUSION: 1. Bilateral mostly basilar airspace disease, left greater than right. Support apparatus in satisfactory position. No significant change since December 18. Laurent Pool MD Brain MRI 12/18/16 0900 Signed Impressions: Service Date/Time: Sunday, December 18, 2016 11:07 - CONCLUSION: Diffuse abnormal diffusion signal within sulci and gyri of both hemispheres, the caudate, basal ganglia and cerebellar hemispheres. The findings are concerning for global and anoxia. This is significantly worse than seen on previous study. Bakari Vera MD Abdomen X-Ray 12/18/16 0000 Signed Impressions: Service Date/Time: Sunday, December 18, 2016 13:59 - CONCLUSION: Nasogastric tube is just cross the GE junction. There is no free air. Ang Vera MD FACR Head CT 12/17/16 0000 Signed Impressions: Service Date/Time: December 17:01 - CONCLUSION: 1. The study is degraded by streak and motion artifact limiting. 2. Stable area of decreased attenuation noted in the left basal ganglia. This appears to correspond to one of the areas of subacute infarction seen on MRI. 3. No definite acute hemorrhage or mass effect visualized. Mt Dodd MD Neck CTA 12/14/16 0000 Signed Impressions: Service Date/Time: Wednesday, December 14, 2016 04:20 - CONCLUSION: No significant stenoses in the carotids. Incidental note of bilateral pleural effusions and upper lobe emphysema. Aristeo Tellez MD Head CTA 12/14/16 0000 Signed Impressions: Service Date/Time: Wednesday, December 14, 2016 04:20 - CONCLUSION: Negative intracranial CTA. No evidence of vessel truncation. Aristeo Tellez MD Chest CT 12/12/16 0000 Signed Impressions: Service Date/Time: Monday, December 12, 2016 12:13 - CONCLUSION: 1. Small bilateral pleural effusions and subsegmental consolidating airspace disease in the bases. 2. Persistent small pericardial effusion. 3. No other significant abnormality. Roman Cordero MD Pericardiocentesis 12/08/16 0815 Signed Impressions: Service Date/Time: Thursday, December 08, 2016 08:43 - CONCLUSION: Uncomplicated CT-guided pericardial centesis as above. Roman Cordero MD Last Impressions Chest X-Ray 12/16/16 Signed Impressions: Service Date/Time: Friday, December 16, 2016 04:31 - CONCLUSION: Interval increase in left lower lobe consolidation. Aristeo Tellez MD Neck CTA 12/14/16 0000 Signed Impressions: Service Date/Time: Wednesday, December 14, 2016 04:20 - CONCLUSION: No significant stenoses in the carotids. Incidental note of bilateral pleural effusions and upper lobe emphysema. Aristeo Tellez MD Head CTA 12/14/16 0000 Signed Impressions: Service Date/Time: Wednesday, December 14, 2016 04:20 - CONCLUSION: Negative intracranial CTA. No evidence of vessel truncation. Aristeo Tellez MD Head CT 12/14/16 0000 Signed Impressions: Service Date/Time: Wednesday, December 14, 2016 14:56 - CONCLUSION: 1. There is a new 6 mm area low density in the left basal ganglia which could represent a recent area of ischemia. There is stable encephalomalacia in the right cerebellum. 2. Nonspecific punctate areas of air near the right cerebellum and left occipital region. These are of uncertain etiology but may be related to retrograde venous air. The air in the right cerebellar region is near the sinus. Since this is of uncertain etiology consider followup CT to assess for change. Davey Hernandez MD Brain MRI 12/14/16 0000 Signed Impressions: Service Date/Time: Wednesday, December 14, 2016 17:58 - CONCLUSION: Numerous mostly small acute or subacute bilateral cerebral and right cerebellar infarcts as described above. No bleed, mass effect or midline shift. Davey Nicholas MD Chest CT 12/12/16 0000 Signed Impressions: Service Date/Time: Monday, December 12, 2016 12:13 - CONCLUSION: 1. Small bilateral pleural effusions and subsegmental consolidating airspace disease in the bases. 2. Persistent small pericardial effusion. 3. No other significant abnormality. Roman Cordero MD Pericardiocentesis 12/08/16 0815 Signed Impressions: Service Date/Time: Thursday, December 08, 2016 08:43 - CONCLUSION: Uncomplicated CT-guided pericardial centesis as above. Roman Cordero MD Last Impressions Neck CTA 12/14/16 Signed Impressions: Service Date/Time: Wednesday, December 14, 2016 04:20 - CONCLUSION: No significant stenoses in the carotids. Incidental note of bilateral pleural effusions and upper lobe emphysema. Aristeo Tellez MD Head CTA 12/14/16 0000 Signed Impressions: Service Date/Time: Wednesday, December 14, 2016 04:20 - CONCLUSION: Negative intracranial CTA. No evidence of vessel truncation. Aristeo Tellez MD Head CT 12/14/16 Signed Impressions: Service Date/Time: Wednesday, December 14, 2016 14:56 - CONCLUSION: 1. There is a new 6 mm area low density in the left basal ganglia which could represent a recent area of ischemia. There is stable encephalomalacia in the right cerebellum. 2. Nonspecific punctate areas of air near the right cerebellum and left occipital region. These are of uncertain etiology but may be related to retrograde venous air. The air in the right cerebellar region is near the sinus. Since this is of uncertain etiology consider followup CT to assess for change. Davey Hernandez MD Chest X-Ray 12/14/16 0000 Signed Impressions: Service Date/Time: Wednesday, December 14, 2016 09:26 - CONCLUSION: Support apparatus in good position. 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 No bleed, mass effect or midline shift. Davey Nicholas MD Chest CT 12/12/16 0000 Signed Impressions: Service Date/Time: Monday, December 12, 2016 12:13 - CONCLUSION: 1. Small bilateral pleural effusions and subsegmental consolidating airspace disease in the bases. 2. Persistent small pericardial effusion. 3. No other significant abnormality. Roman Cordero MD Pericardiocentesis 12/08/16 0815 Signed Impressions: Service Date/Time: Thursday, December 08, 2016 08:43 - CONCLUSION: Uncomplicated CT-guided pericardial centesis as above. Roman Cordero MD Objective Remarks GENERAL: Patient is 66 yo male resting SKIN: Cool HEAD: Normocephalic. EYES: No scleral icterus. No injection or drainage. NECK: Supple CARDIOVASCULAR: Irregularly irregular rate. RESPIRATORY: Occasional respirations, no support GASTROINTESTINAL: Abdomen soft MUSCULOSKELETAL: cyanosis, peripheral edema Neuro: GCS3 A/P Assessment and Plan 1. Status post V-tach arrest. 2. S/P CT-guided pericardiocentesis with removal of 600 mL pericardial fluid on December 08. 3. Atrial fibrillation with RVR 4. ACS with elevated troponins. 5. Acute CVA 6. Gram positive bacteremia 7. Septic shock 8. COPD. 9. Diabetes mellitus. 10. Leukocytosis. 11. History of prostate cancer. 12. Severe metabolic acidosis Plan Comfort care measures and ventilator withdrawal performed 12/18 Lines: Right IJ CVP, Right femoral Art line placed 12/14 Dispo: Level 1 Family at bedside Physician Hina Worley MD Dec 20, 2016 06:36
[2016-12-20] MEDS: MORPHINE SULFATE 4 MG/ML INJ IV SCH ×4 (07:30→20:26)
[2016-12-20] MEDS: ARTIFICIAL TEARS OPTH SOLN 15 ML BTL EACH EYE SCH ×2 (07:31→20:26)
[2016-12-20] MEDS: LORazepam 2 MG/ML VIAL IV SCH ×4 (07:31→20:25)
[2016-12-20] MEDS: CHLORHEXIDINE 0.12% (ORAL KIT) 15 ML CUP MT SCH (07:31)
[2016-12-20] MEDS: LORazepam 2 MG/ML VIAL IV PRN ×3 (09:15→18:05)
[2016-12-20] MEDS: MORPHINE SULFATE 4 MG/ML INJ IV PRN ×4 (09:15→18:05)
[2016-12-20] MEDS: HYOSCYAMINE 0.5 MG/ML AMP IV PRN ×2 (13:13→20:27)
[2016-12-20] MEDS: RESP: BUDESONIDE 0.5 MG/2 ML NEB NEB SCH (20:00)
[2016-12-21] VITALS (14 sets, daily range): BP systolic 98–104; BP diastolic 63–70; PULSE 72–85; RESP 13–22; TEMP 96.5–98; O2SAT 72–96
[2016-12-21] MEDS: LORazepam 2 MG/ML VIAL IV PUSH PRN (00:02)
[2016-12-21] MEDS: MORPHINE SULFATE 4 MG/ML INJ IV SCH ×6 (00:03→23:30)
[2016-12-21] MEDS: ARTIFICIAL TEARS OPTH SOLN 15 ML BTL EACH EYE SCH ×2 (06:18→20:00)
[2016-12-21] MEDS: LORazepam 2 MG/ML VIAL IV SCH ×6 (06:18→23:29)
--- NOTE | 2016-12-21 11:25 | HHI.HCPN ---
Reason for visit a. To assist with evaluation and management of symptoms including: dyspnea. b. To assist medical decision maker(s) with: better understanding of current medical conditions; weighing benefits/burdens of medical treatment options; making medical treatment decisions. . Subjective/Interval History Patient seen and examined in ICU to follow-up on comfort. Patient was extubated over the weekend. Patient with orotracheal secretions and dyspnea. Oxygen saturations in the 80's. No facial grimacing noted. Spoke with sonJosse via phone. He agrees to hospice consult and comfort focused care. He prefers to keep patient at [facility] as opposed to care center setting. Called [facility] to request a bed. Questions answered. . Family/friend interactions See interval note. . Advance Directives Living Will: Never completed Health Care Surrogate: Never completed Advance Directive Specifics Significant change in goals: NO CODE. Comfort focused care, with inpatient hospice support. Hospice consulted. . Objective Vital Signs Date Time Temp Pulse Resp B/P (MAP) Pulse Ox O2 Delivery O2 Flow Rate FiO2 12/21/16 08:00 75 12/21/16 08:00 96.5 75 17 102/68 (79) 80 12/21/16 04:00 72 12/21/16 04:00 97.3 75 22 98/63 (75) 72 12/21/16 02:00 75 12/21/16 00:00 75 12/21/16 00:00 97.6 72 22 101/64 (76) 96 12/20/16 22:00 72 12/20/16 20:00 97.8 75 20 98/63 (75) 77 12/20/16 20:00 97 12/20/16 18:00 72 12/20/16 16:00 74 12/20/16 16:00 74 12 90/59 (69) 72 12/20/16 14:00 78 12/20/16 12:00 71 12/20/16 12:00 71 27 93/61 (72) 78 Intake & Output 12/21/16 12/21/16 07:00 19:00 Output Total 600 ml Balance -600 ml Output Urine Total 600 ml # Bowel Movements 1 Physical Exam CONSTITUTIONAL/GENERAL: This is an adequately nourished patient. SKIN: dusky. skin temperature warmdistal feet cool. CARDIOVASCULAR: Irregular rate and rhythm. RESPIRATORY/CHEST: Symmetric, mildly labored respirations. Orotracheal secretions noted. Scattered course breath sounds. GASTROINTESTINAL: Slightly distended. GENITOURINARY: Without palpable bladder distension. Muro catheter in place. MUSCULOSKELETAL: Extremities without clubbing, cyanosis, or edema. NEUROLOGICAL: Does not stir to my light touch or exam. Does not withdraw to pain. No eye opening to touch. PSYCHIATRIC: Appears to be sleeping. Comfortable during my visit. . Diagnostic Tests Laboratory Laboratory Tests Test 12/18/16 12:50 12/18/16 22:20 12/19/16 04:50 12/19/16 04:52 Activated Partial Thromboplast Time 37.5 SEC (24.3-30.1) 41.5 SEC (24.3-30.1) 45.6 SEC (24.3-30.1) White Blood Count 46.0 TH/MM3 (4.0-11.0) Red Blood Count 3.41 MIL/MM3 (4.50-5.90) Hemoglobin 10.6 GM/DL (13.0-17.0) Hematocrit 32.6 % (39.0-51.0) Mean Corpuscular Volume 95.7 FL (80.0-100.0) Mean Corpuscular Hemoglobin 31.1 PG (27.0-34.0) Mean Corpuscular Hemoglobin Concent 32.5 % (32.0-36.0) Red Cell Distribution Width 13.4 % (11.6-17.2) Platelet Count 90 TH/MM3 (150-450) Mean Platelet Volume 10.6 FL (7.0-11.0) Hematology Comments Blood Urea Nitrogen 63 MG/DL (7-18) Creatinine 2.38 MG/DL (0.60-1.30) Random Glucose 222 MG/DL (74-106) Total Protein 5.0 GM/DL (6.4-8.2) Calcium Level 7.0 MG/DL (8.5-10.1) Phosphorus Level 5.1 MG/DL (2.5-4.9) Magnesium Level 3.0 MG/DL (1.5-2.5) Sodium Level 138 MEQ/L (136-145) Potassium Level 4.6 MEQ/L (3.5-5.1) Chloride Level 103 MEQ/L (98-107) Carbon Dioxide Level 18.2 MEQ/L (21.0-32.0) Anion Gap 17 MEQ/L (5-15) Estimat Glomerular Filtration Rate 28 ML/MIN (>89) Protein Corrected Calcium 8.1 MG/DL (8.5-10.1) Blood Gas Puncture Site RT RADIAL Blood Gas Patient Temperature 98.6 Blood Gas HCO3 16 mmol/L (22-26) Blood Gas Base Excess -8.5 mmol/L (-2-2) Blood Gas Oxygen Saturation 98 % (90-100) Arterial Blood pH 7.35 (7.380-7.420) Arterial Blood Partial Pressure CO2 30 mmHg (38-42) Arterial Blood Partial Pressure O2 272 mmHg (61-120) Arterial Blood Oxygen Content 16.3 Vol % (12.0-20.0) Arterial Blood Carboxyhemoglobin 1.1 % (0-4) Arterial Blood Methemoglobin 1.1 % (0-2) Blood Gas Hemoglobin 11.4 G/DL (12.0-16.0) Oxygen Delivery Device VENTILATOR Blood Gas Ventilator Setting PRVC20/600/1.0/+8 Blood Gas Inspired Oxygen 100 % Result Diagram: 12/19/16 0450 12/19/16 0450 Microbiology Microbiology Date/Time Source Procedure Growth Status 12/15/16 06:09 Blood Peripheral Aerobic Blood Culture - Preliminary Acid Fast Bacilli Resulted 12/15/16 06:09 Blood Peripheral Anaerobic Blood Culture - Final NO GROWTH IN 5 DAYS Resulted 12/08/16 09:00 Fluid Pericardial Fluid Acid Fast Stain - Final NO ACID FAST BACILLI SEEN Resulted 12/08/16 09:00 Fluid Pericardial Fluid Mycobacterial Culture - Preliminary NO GROWTH IN 1 WEEK Resulted 12/14/16 11:30 Sputum Endotracheal Gram Stain - Final Complete 12/14/16 11:30 Sputum Endotracheal Sputum Culture - Final HEAVY GROWTH NORMAL RESPIRATORY SULTANA Complete 12/14/16 10:40 Urine Catheterized Urine Legionella Antigen - Final PRESUMPTIVE NEGATIVE FOR LEGIONELLA P... Complete . Imaging Last Impressions Chest X-Ray 12/19/16 06 Signed Impressions: Service Date/Time: Monday, December 19, 2016 03:22 - CONCLUSION: 1. Bilateral mostly basilar airspace disease, left greater than right. Support apparatus in satisfactory position. No significant change since December 18. Laurent Pool MD Brain MRI 12/18/16 09 Signed Impressions: Service Date/Time: Sunday, December 18, 2016 11:07 - CONCLUSION: Diffuse abnormal diffusion signal within sulci and gyri of both hemispheres, the caudate, basal ganglia and cerebellar hemispheres. The findings are concerning for global and anoxia. This is significantly worse than seen on previous study. Bakari Vera MD Abdomen X-Ray 12/18/16 0000 Signed Impressions: Service Date/Time: Sunday, December 18, 2016 13:59 - CONCLUSION: Nasogastric tube is just cross the GE junction. There is no free air. Ang Vera MD FACR Head CT 12/17/16 0000 Signed Impressions: Service Date/Time: December 17:01 - CONCLUSION: 1. The study is degraded by streak and motion artifact limiting. 2. Stable area of decreased attenuation noted in the left basal ganglia. This appears to correspond to one of the areas of subacute infarction seen on MRI. 3. No definite acute hemorrhage or mass effect visualized. Mt Dodd MD Neck CTA 12/14/16 0000 Signed Impressions: Service Date/Time: Wednesday, December 14, 2016 04:20 - CONCLUSION: No significant stenoses in the carotids. Incidental note of bilateral pleural effusions and upper lobe emphysema. Aristeo Tellez MD Head CTA 12/14/16 0000 Signed Impressions: Service Date/Time: Wednesday, December 14, 2016 04:20 - CONCLUSION: Negative intracranial CTA. No evidence of vessel truncation. Aristeo Tellez MD Chest CT 12/12/16 0000 Signed Impressions: Service Date/Time: Monday, December 12, 2016 12:13 - CONCLUSION: 1. Small bilateral pleural effusions and subsegmental consolidating airspace disease in the bases. 2. Persistent small pericardial effusion. 3. No other significant abnormality. Roman Cordero MD Pericardiocentesis 12/08/16 0815 Signed Impressions: Service Date/Time: Thursday, December 08, 2016 08:43 - CONCLUSION: Uncomplicated CT-guided pericardial centesis as above. Roman Cordero MD Procedures 12/14femoral arterial line right, right IJ central line 12/08--to interventional radiology CT-guided pericardiocentesis . Assessment and Plan Disease Oriented Problem List: (1) V-tach Comment: Status post V. tach arrest (2) Acute CVA (cerebrovascular accident) Comment: Likely embolic (3) ACS (acute coronary syndrome) (4) STEMI (ST elevation myocardial infarction) (5) COPD (chronic obstructive pulmonary disease) (6) Atrial fibrillation with RVR (7) Diabetes Symptom Scale: (1) Dyspnea 0-10 Scale: Unable to quantify (2) Malnutrition 0-10 Scale: Unable to quantify Comment: Albumin 1.7. (3) Pain 0-10 Scale: Unable to quantify (4) Encephalopathy 0-10 Scale: Unable to quantify Pertinent Non-Medical Issues Psychosocial: . 1 son and 1 daughter. Spiritual: Unknown. Legal: Patient is not able to participate in decision-making due to clinical condition. Not clear if he will regain ability. No advanced directive or HCS. According to [place] statutes, health care proxy decision making falls to his spouse. On 12/18/16 wrote a note and verbally stated she DOES NOT wish to serve as healthcare proxy decision maker. Therefore according to [place] statutes health care proxy decision-making falls to the majority of adult children, he has one son and one daughter. Ethical issues impacting care: No known concerns at this time. . Important Contacts * Asiya, daughter: [phone] (co- HCP) * Josse Carrasco, son: [phone] (co- HCP) * Josse Smith's girlfriend: [phone] * Chantal Carrasco [phone] DOES NOT WANT TO SERVE HCP. * Brother Davey Carrasco [phone] . Prognosis This patient was admitted for chest pain, findings of atrial fib RVR, status post multiple ED visits for A. fib, chest pain, status post EPS ablation last month. This admission now with pericardial effusion, sepsis, multiple small areas of infarct per brain MRI, status post V. tach arrest 12/14. Now vented in ICU. High risk for ongoing complications and setbacks though possible patient can survive. Extent of recovery not known at this point, pending clinical course. . Code Status: No Code Plan * Legal decision maker: Patient is not able to participate in decision-making due to clinical condition. Not clear if he will regain ability. No advanced directive or HCS. According to [place] statutes, health care proxy decision making falls to his spouse. On 12/18/16 wrote a note (on chart) and verbally stated via phone that she DOES NOT wish to serve as healthcare proxy decision maker. Therefore according to [place] statutes health care proxy decision-making falls to the majority of adult children, he has one son, Josse and one daughter, Asiya. * Hospice consulted. Order placed for transfer to [facility] when bed available. * NO CODE. * SYMPTOMS: --Dyspnea- on room air. -- Pain- appears comfortable with current meds. -- Encephalopathy- + mult areas small infarct per initial MRI, now repeat MRI with global anoxia. Remains on mech vent. On fentanyl, no evidence of neuro improvement. -- Secretions - PRN Levsin and Lasix available. * Palliative care will continue to follow during hospital course as condition evolves, to assist patient/decision-maker with understanding of medical conditions, weighing benefits/burdens of treatment options, for clarification of goals of treatment. Additionally will assist with any symptoms of palliative concern. . Attestation To help prompt me to consider important information that might be impacting today's encounter and assessment, information from prior notes written by myself or my colleagues may have been "brought forward" into today's note. My signature on this note, however, is an attestation that I personally performed the exam, history, and/or decision-making noted today, and, unless otherwise indicated, the interactions with patient, family, and staff as well as the review of records all occurred today. I also attest that the listed assessment and stated plan reflect my best clinical judgment today based on the combination of historical information, prior notes, and today's exam/ interactions. When time spent is documented, it refers only to time spent today by the signer, or if indicated, combined time spent today by collaborating physician/nurse practitioner. Beronica Solomon Dec 21, 2016 11:25
[2016-12-21] MEDS: HYOSCYAMINE 0.5 MG/ML AMP IV PRN (16:18)
[2016-12-21] MEDS: RESP: BUDESONIDE 0.5 MG/2 ML NEB NEB SCH (20:00)
[2016-12-21] MEDS: MORPHINE SULFATE 4 MG/ML INJ IV PRN (21:44)
[2016-12-21] MEDS: LORazepam 2 MG/ML VIAL IV PRN (21:44)
[2016-12-22] VITALS (20 sets, daily range): BP systolic 90–133; BP diastolic 60–79; PULSE 81–140; RESP 12–22; TEMP 97.2–98.9; O2SAT 79–82
[2016-12-22] MEDS: MORPHINE SULFATE 4 MG/ML INJ IV PRN ×5 (01:29→16:00)
[2016-12-22] MEDS: LORazepam 2 MG/ML VIAL IV PRN ×4 (01:29→13:21)
[2016-12-22] MEDS: LORazepam 2 MG/ML VIAL IV SCH ×5 (03:21→19:53)
[2016-12-22] MEDS: MORPHINE SULFATE 4 MG/ML INJ IV SCH ×5 (03:21→19:53)
[2016-12-22] MEDS: ARTIFICIAL TEARS OPTH SOLN 15 ML BTL EACH EYE SCH ×6 (03:21→20:00)
[2016-12-22] MEDS: HYOSCYAMINE 0.5 MG/ML AMP IV PRN ×2 (05:00→19:53)
[2016-12-22] MEDS: RESP: BUDESONIDE 0.5 MG/2 ML NEB NEB SCH ×2 (08:00→22:32)
--- NOTE | 2016-12-22 11:46 | HHI.HCPN ---
Reason for visit a. To assist with evaluation and management of symptoms including: dyspnea. b. To assist medical decision maker(s) with: better understanding of current medical conditions; weighing benefits/burdens of medical treatment options; making medical treatment decisions. . Subjective/Interval History Patient seen and examined in ICU to follow-up on comfort. Patient was admitted to hospice on 12/21/16. He appears with mildly labored respirations with orotracheal and pulmonary congestion. Heart rate irregular, tachycardic 120-140' s. Nurse medicated during my visit. Spoke with nurse, Taylor and hospice Arielle MCGRATH at bedside. PPS 10, prognosis hours to days. Patient has ATC Lorazepam and Morphine ordered, has had 3 doses of PRN meds today will monitor for effect. Discussed with nurse to call if PRN meds are not effective. . Family/friend interactions Spoke with son and daughter in law at bedside upon their arrival. Medical update provided. Questions answered. Support provided. . Advance Directives Living Will: Never completed Health Care Surrogate: Never completed Advance Directive Specifics Significant change in goals: NO CODE. Comfort measures only on hospice. . Objective Vital Signs Date Time Temp Pulse Resp B/P (MAP) Pulse Ox O2 Delivery O2 Flow Rate FiO2 12/22/16 11:00 133 12/22/16 10:00 136 12/22/16 09:00 140 13 82 12/22/16 09:00 140 12/22/16 08:00 84 12/22/16 08:00 97.8 84 13 100/69 (79) 81 12/22/16 07:00 84 12/22/16 07:00 84 15 79 12/22/16 06:00 85 12/22/16 06:00 85 12 79 12/22/16 05:13 11 12/22/16 05:00 83 13 81 12/22/16 04:00 85 12/22/16 04:00 97.6 85 14 95/68 (77) 79 12/22/16 03:47 13 12/22/16 03:00 81 13 80 12/22/16 02:00 84 12/22/16 02:00 84 14 82 12/22/16 01:00 84 15 80 12/22/16 00:00 85 12/22/16 00:00 97.6 82 15 99/63 (75) 81 12/21/16 23:00 85 15 79 12/21/16 22:00 82 12/21/16 22:00 82 15 80 12/21/16 21:00 85 16 80 12/21/16 20:00 81 12/21/16 20:00 97.4 81 15 104/70 (81) 81 12/21/16 19:00 83 17 81 12/21/16 18:00 84 12/21/16 16:00 80 14 98/64 (75) 81 12/21/16 16:00 80 12/21/16 14:00 77 12/21/16 12:00 76 13 99/64 (76) 82 12/21/16 12:00 76 Intake & Output 12/22/16 12/22/16 07:00 19:00 Output Total 1245 ml Balance -1245 ml Output Urine Total 1245 ml Physical Exam CONSTITUTIONAL/GENERAL: This is an adequately nourished patient. SKIN: dusky. skin temperature warm. CARDIOVASCULAR: Irregular rate and rhythm, tachycardic. RESPIRATORY/CHEST: Symmetric, mildly labored respirations. Orotracheal secretions noted. Scattered course breath sounds. GASTROINTESTINAL: Slightly more distended. GENITOURINARY: Without palpable bladder distension. Muro catheter in place. MUSCULOSKELETAL: Extremities with increasing edema. NEUROLOGICAL: Does not stir to my light touch or exam. Does not withdraw to pain. No eye opening to touch. PSYCHIATRIC: sedated. . Diagnostic Tests Result Diagram: 12/19/160 12/19/16449 Microbiology Microbiology Date/Time Source Procedure Growth Status 12/15/16 06:09 Blood Peripheral Aerobic Blood Culture - Preliminary Acid Fast Bacilli Resulted 12/15/16 06:09 Blood Peripheral Anaerobic Blood Culture - Final NO GROWTH IN 5 DAYS Resulted 12/08/16 09:00 Fluid Pericardial Fluid Acid Fast Stain - Final NO ACID FAST BACILLI SEEN Resulted 12/08/16 09:00 Fluid Pericardial Fluid Mycobacterial Culture - Preliminary NO GROWTH IN 1 WEEK Resulted 12/14/16 11:30 Sputum Endotracheal Gram Stain - Final Complete 12/14/16 11:30 Sputum Endotracheal Sputum Culture - Final HEAVY GROWTH NORMAL RESPIRATORY SULTANA Complete 12/14/16 10:40 Urine Catheterized Urine Legionella Antigen - Final PRESUMPTIVE NEGATIVE FOR LEGIONELLA P... Complete Imaging Last Impressions Chest X-Ray 12/19/16 0600 Signed Impressions: Service Date/Time: Monday, December 19, 2016 03:22 - CONCLUSION: 1. Bilateral mostly basilar airspace disease, left greater than right. Support apparatus in satisfactory position. No significant change since December 18. Laurent Pool MD Brain MRI 12/18/16 0900 Signed Impressions: Service Date/Time: Sunday, December 18, 2016 11:07 - CONCLUSION: Diffuse abnormal diffusion signal within sulci and gyri of both hemispheres, the caudate, basal ganglia and cerebellar hemispheres. The findings are concerning for global and anoxia. This is significantly worse than seen on previous study. Bakari Vera MD Abdomen X-Ray 12/18/16 0000 Signed Impressions: Service Date/Time: Sunday, December 18, 2016 13:59 - CONCLUSION: Nasogastric tube is just cross the GE junction. There is no free air. Ang Vera MD FACR Head CT 12/17/16 0000 Signed Impressions: Service Date/Time: December 17:01 - CONCLUSION: 1. The study is degraded by streak and motion artifact limiting. 2. Stable area of decreased attenuation noted in the left basal ganglia. This appears to correspond to one of the areas of subacute infarction seen on MRI. 3. No definite acute hemorrhage or mass effect visualized. Mt Dodd MD Neck CTA 12/14/16 0000 Signed Impressions: Service Date/Time: Wednesday, December 14, 2016 04:20 - CONCLUSION: No significant stenoses in the carotids. Incidental note of bilateral pleural effusions and upper lobe emphysema. Aristeo Tellez MD Head CTA 12/14/16 0000 Signed Impressions: Service Date/Time: Wednesday, December 14, 2016 04:20 - CONCLUSION: Negative intracranial CTA. No evidence of vessel truncation. Aristeo Tellez MD Chest CT 12/12/16 0000 Signed Impressions: Service Date/Time: Monday, December 12, 2016 12:13 - CONCLUSION: 1. Small bilateral pleural effusions and subsegmental consolidating airspace disease in the bases. 2. Persistent small pericardial effusion. 3. No other significant abnormality. Roman Cordero MD Pericardiocentesis 12/08/16 0815 Signed Impressions: Service Date/Time: Thursday, December 08, 2016 08:43 - CONCLUSION: Uncomplicated CT-guided pericardial centesis as above. Roman Cordero MD Procedures 12/14femoral arterial line right, right IJ central line 12/08--to interventional radiology CT-guided pericardiocentesis . Assessment and Plan Disease Oriented Problem List: (1) V-tach Comment: Status post V. tach arrest (2) Acute CVA (cerebrovascular accident) Comment: Likely embolic (3) ACS (acute coronary syndrome) (4) STEMI (ST elevation myocardial infarction) (5) COPD (chronic obstructive pulmonary disease) (6) Atrial fibrillation with RVR (7) Diabetes Symptom Scale: (1) Dyspnea 0-10 Scale: Unable to quantify (2) Malnutrition 0-10 Scale: Unable to quantify Comment: Albumin 1.7. (3) Pain 0-10 Scale: Unable to quantify (4) Encephalopathy 0-10 Scale: Unable to quantify Pertinent Non-Medical Issues Psychosocial: . 1 son and 1 daughter. Spiritual: Unknown. Legal: Patient is not able to participate in decision-making due to clinical condition. Not clear if he will regain ability. No advanced directive or HCS. According to [place] statutes, health care proxy decision making falls to his spouse. On 12/18/16 wrote a note and verbally stated she DOES NOT wish to serve as healthcare proxy decision maker. Therefore according to [place] statutes health care proxy decision-making falls to the majority of adult children, he has one son and one daughter. Ethical issues impacting care: No known concerns at this time. . Important Contacts * Asiya, daughter: [phone] (co- HCP) * Josse Carrasco, son: [phone] (co- HCP) * Josse Smith's girlfriend: [phone] * Chantal Carrasco [phone] DOES NOT WANT TO SERVE HCP. * Brother Davey Carrasco [phone] . Prognosis This patient was admitted for chest pain, findings of atrial fib RVR, status post multiple ED visits for A. fib, chest pain, status post EPS ablation last month. This admission now with pericardial effusion, sepsis, multiple small areas of infarct per brain MRI, status post V. tach arrest 12/14. Now vented in ICU. High risk for ongoing complications and setbacks though possible patient can survive. Extent of recovery not known at this point, pending clinical course. . Code Status: No Code Plan * Legal decision maker: Patient is not able to participate in decision-making due to clinical condition. Not clear if he will regain ability. No advanced directive or HCS. According to [place] statutes, health care proxy decision making falls to his spouse. On 12/18/16 wrote a note (on chart) and verbally stated via phone that she DOES NOT wish to serve as healthcare proxy decision maker. Therefore according to [place] statutes health care proxy decision-making falls to the majority of adult children, he has one son, Josse and one daughter, Asiya. * Inpatient Hospice, comfort measures only. * NO CODE. * SYMPTOMS: -- Dyspnea-mildly labored respirations on room air, improves with meds. -- Pain- no obvious signs of pain, appears comfortable on current meds. -- Encephalopathy- + mult areas small infarct per initial MRI, now repeat MRI with global anoxia. Remains on mech vent. On fentanyl, no evidence of neuro improvement. - Secretions- PRN Levsin and Lasix available. * Palliative care will continue to follow during hospital course as condition evolves, to assist patient/decision-maker with understanding of medical conditions, weighing benefits/burdens of treatment options, for clarification of goals of treatment. Additionally will assist with any symptoms of palliative concern. . Attestation To help prompt me to consider important information that might be impacting today's encounter and assessment, information from prior notes written by myself or my colleagues may have been "brought forward" into today's note. My signature on this note, however, is an attestation that I personally performed the exam, history, and/or decision-making noted today, and, unless otherwise indicated, the interactions with patient, family, and staff as well as the review of records all occurred today. I also attest that the listed assessment and stated plan reflect my best clinical judgment today based on the combination of historical information, prior notes, and today's exam/ interactions. When time spent is documented, it refers only to time spent today by the signer, or if indicated, combined time spent today by collaborating physician/nurse practitioner. Beronica Solomon Dec 22, 2016 11:46
[2016-12-23] MEDS: LORazepam 2 MG/ML VIAL IV SCH ×7 (00:20→22:09)
[2016-12-23] MEDS: HYOSCYAMINE 0.5 MG/ML AMP IV PRN ×3 (00:20→11:58)
[2016-12-23] MEDS: ARTIFICIAL TEARS OPTH SOLN 15 ML BTL EACH EYE SCH ×6 (00:20→20:00)
[2016-12-23] MEDS: MORPHINE SULFATE 4 MG/ML INJ IV SCH ×7 (00:20→22:10)
[2016-12-23 06:51] LABS: HEMATOCRIT 33.8 % (39.0-51.0); MEAN CELL VOLUME 95.2 FL (80.0-100.0); MEAN CORPUSCULAR HEMOGLOBIN 31.4 PG (27.0-34.0); PLATELET COUNT 136 TH/MM3 (150-450); RED BLOOD COUNT 3.55 MIL/MM3 (4.50-5.90); REVIEW FLAG FINAL; WHITE BLOOD COUNT 6.7 TH/MM3 (4.0-11.0)
[2016-12-23 08:00] VITALS: BP 124/77; PULSE 95; RESP 20; TEMP 95.6; O2SAT 92; O2SAT 95
[2016-12-23] MEDS: RESP: BUDESONIDE 0.5 MG/2 ML NEB NEB SCH ×2 (08:00→20:00)
[2016-12-23 12:00] VITALS: BP 113/73; PULSE 92; RESP 21; TEMP 97.9; O2SAT 81
--- NOTE | 2016-12-23 14:37 | HHI.HCPN ---
Reason for visit a. To assist with evaluation and management of symptoms including: dyspnea. b. To assist medical decision maker(s) with: better understanding of current medical conditions; weighing benefits/burdens of medical treatment options; making medical treatment decisions. . Subjective/Interval History Patient seen to follow up on comfort. Dual visit w Rosa BALTAZAR Has been transferred out of ICU, was admitted to hospice 12/21/16. Is on around the clock morphine 4mg Q 4 hr , ativan 1mg Q4 hr for dyspnea /tachypnea . No additional prns required since yesterday, yesterday w several prns required. Nsg reports comfortable, non responsive today. Has been requiring PRN levsin for secretions/pulmonary congestion, 3 doses today, 2 doses yesterday. Pt seen in room, no visitors present. Nonresponsive. Breathing comfortably. does not stir to exam. BS intermittent. Urine dark, w sediment. Peripheral pulses good, no mottling noted. Following exam, call to sons CATHY Sarah, who is with/contact for son-- provided update on current assessment, medications in place, pt appears comfortable. She shares family has questions RE frequency of vital signs , review of checking vs Q shift, as there would not be escalation of tx based on wishes for comfort. Family is appreciative of update, they will be in later to see pt. . Advance Directives Living Will: Never completed Health Care Surrogate: Never completed Objective Vital Signs Date Time Temp Pulse Resp B/P (MAP) Pulse Ox O2 Delivery O2 Flow Rate FiO2 12/23/16 12:00 97.9 92 21 113/73 (86) 81 12/23/16 08:00 95.6 95 20 124/77 (93) 92 12/22/16 20:00 97.2 86 22 133/79 (97) 80 12/22/16 18:00 86 12/22/16 17:00 86 12 81 12/22/16 17:00 86 12/22/16 16:00 97.3 120 13 90/67 (75) 81 12/22/16 16:00 120 12/22/16 15:00 120 14 81 12/22/16 15:00 120 Intake & Output 12/23/16 12/23/16 07:00 19:00 Output Total 200 ml Balance -200 ml Output Urine Total 200 ml Physical Exam CONSTITUTIONAL/GENERAL: This is an adequately nourished patient. SKIN: dusky. skin temperature warmdistal feet cool. CARDIOVASCULAR: Irregular rate and rhythm. RESPIRATORY/CHEST: Symmetric, unlabored respirations. Scattered course breath sounds. GASTROINTESTINAL: Slightly distended. BS intermittent,infrequent GENITOURINARY: Without palpable bladder distension. Muro catheter in place- dark conc.urine, +sediment. MUSCULOSKELETAL: Extremities without clubbing, cyanosis, or edema. NEUROLOGICAL: Does not stir to my light touch or exam. Does not withdraw to pain. No eye opening to touch. PSYCHIATRIC: Appears to be sleeping. Comfortable during my visit. . Diagnostic Tests Laboratory Laboratory Tests Test 12/23/16 06:27 White Blood Count 6.7 TH/MM3 (4.0-11.0) Red Blood Count 3.55 MIL/MM3 (4.50-5.90) Hemoglobin 11.1 GM/DL (13.0-17.0) Hematocrit 33.8 % (39.0-51.0) Mean Corpuscular Volume 95.2 FL (80.0-100.0) Mean Corpuscular Hemoglobin 31.4 PG (27.0-34.0) Mean Corpuscular Hemoglobin Concent 33.0 % (32.0-36.0) Red Cell Distribution Width 14.0 % (11.6-17.2) Platelet Count 136 TH/MM3 (150-450) Mean Platelet Volume 10.3 FL (7.0-11.0) Result Diagram: 12/23/16 0627 12/19/16 0450 Procedures 12/14femoral arterial line right, right IJ central line 12/08--to interventional radiology CT-guided pericardiocentesis . Assessment and Plan Disease Oriented Problem List: (1) V-tach Comment: Status post V. tach arrest (2) Acute CVA (cerebrovascular accident) Comment: Likely embolic (3) ACS (acute coronary syndrome) (4) STEMI (ST elevation myocardial infarction) (5) COPD (chronic obstructive pulmonary disease) (6) Atrial fibrillation with RVR (7) Diabetes Symptom Scale: (1) Dyspnea 0-10 Scale: Unable to quantify (2) Malnutrition 0-10 Scale: Unable to quantify Comment: Albumin 1.7. (3) Pain 0-10 Scale: Unable to quantify (4) Encephalopathy 0-10 Scale: Unable to quantify Pertinent Non-Medical Issues Psychosocial: . 1 son and 1 daughter. Spiritual: Unknown. Legal: Patient is not able to participate in decision-making due to clinical condition. Not clear if he will regain ability. No advanced directive or HCS. According to [place] statutes, health care proxy decision making falls to his spouse. On 12/18/16 wrote a note and verbally stated she DOES NOT wish to serve as healthcare proxy decision maker. Therefore according to [place] statutes health care proxy decision-making falls to the majority of adult children, he has one son and one daughter. Ethical issues impacting care: No known concerns at this time. . Important Contacts * Asiya, daughter: [phone] (co- HCP) * Josse Carrasco, son: [phone] (co- HCP) * Josse Smith's girlfriend: [phone] * Chantal Carrasco [phone] DOES NOT WANT TO SERVE HCP. * Brother Davey Carrasco [phone] . Prognosis This patient was admitted for chest pain, findings of atrial fib RVR, status post multiple ED visits for A. fib, chest pain, status post EPS ablation last month. This admission now with pericardial effusion, sepsis, multiple small areas of infarct per brain MRI, status post V. tach arrest 12/14. Now vented in ICU. High risk for ongoing complications and setbacks though possible patient can survive. Extent of recovery not known at this point, pending clinical course. . Code Status: No Code Plan * Legal decision maker: Patient is not able to participate in decision-making due to clinical condition. Not clear if he will regain ability. No advanced directive or HCS. According to [place] statutes, health care proxy decision making falls to his spouse. On 12/18/16 wrote a note (on chart) and verbally stated via phone that she DOES NOT wish to serve as healthcare proxy decision maker. Therefore according to [place] statutes health care proxy decision-making falls to the majority of adult children, he has one sonJosse and one daughter, Asiya. * Hospice following. COMFORT treatments only. NO escalation of tx. pt comfortable, scheduled medications appear effective will continue to evaluate/ monitor requirements * NO CODE. * SYMPTOMS: --Dyspnea- on room air. comfortable on current regimen. will cont to evaluate prn requirements, none required today -- Pain- appears comfortable with current meds. -- Encephalopathy- + mult areas small infarct per initial MRI, repeat MRI with global anoxia. transitioned to comfort. Nonresponsive -- Secretions - PRN Levsin and Lasix available. used levsin x3 today , x2 yesterday. * Palliative care will continue to follow during hospital course as condition evolves, to assist patient/decision-maker with understanding of medical conditions, weighing benefits/burdens of treatment options, for clarification of goals of treatment. Additionally will assist with any symptoms of palliative concern. . Attestation To help prompt me to consider important information that might be impacting today's encounter and assessment, information from prior notes written by myself or my colleagues may have been "brought forward" into today's note. My signature on this note, however, is an attestation that I personally performed the exam, history, and/or decision-making noted today, and, unless otherwise indicated, the interactions with patient, family, and staff as well as the review of records all occurred today. I also attest that the listed assessment and stated plan reflect my best clinical judgment today based on the combination of historical information, prior notes, and today's exam/ interactions. When time spent is documented, it refers only to time spent today by the signer, or if indicated, combined time spent today by collaborating physician/nurse practitioner. Radha Bailey Dec 23, 2016 14:37
[2016-12-23 20:00] VITALS: BP 119/81; PULSE 91; RESP 16; TEMP 96.9; O2SAT 84
[2016-12-24] MEDS: LORazepam 2 MG/ML VIAL IV SCH ×7 (01:55→22:55)
[2016-12-24] MEDS: MORPHINE SULFATE 4 MG/ML INJ IV SCH ×7 (01:55→22:54)
[2016-12-24] MEDS: ARTIFICIAL TEARS OPTH SOLN 15 ML BTL EACH EYE SCH ×7 (04:00→22:57)
[2016-12-24] MEDS: HYOSCYAMINE 0.5 MG/ML AMP IV PRN ×3 (08:02→23:04)
[2016-12-24 12:00] VITALS: BP 138/76; PULSE 95; RESP 20; TEMP 99.3; O2SAT 91
--- NOTE | 2016-12-24 14:28 | HHI.HCPN ---
Reason for visit a. To assist with evaluation and management of symptoms including: dyspnea. b. To assist medical decision maker(s) with: better understanding of current medical conditions; weighing benefits/burdens of medical treatment options; making medical treatment decisions. . Subjective/Interval History Patient seen to follow up on comfort. Dual visit w Rosa BALTAZAR Has been transferred out of ICU, following withdrawal of artificial life support , was admitted to hospice 12/21/16. Is on around the clock morphine 4mg Q 4 hr , ativan 1mg Q4 hr for dyspnea / tachypnea , nursing held this am dose, noon dose. D/w nursing, she indicated pt sleeping so held. Review of comfort measures/education regarding management of tachypnea/dyspnea/anxiety following withdrawal of life support. Nsg reports, sleeping, non responsive today. Has been requiring PRN levsin for secretions/ pulmonary congestion. Pt seen in room, no visitors present. Nonresponsive. Mild accessory muscle use w respiration, mildly tachypneic. +loud oropharyngeal rattle. Peripheral pulses good, no mottling noted. . Advance Directives Living Will: Never completed Health Care Surrogate: Never completed Objective Vital Signs Date Time Temp Pulse Resp B/P (MAP) Pulse Ox O2 Delivery O2 Flow Rate FiO2 12/24/16 06:38 16 12/23/16 20:00 96.9 91 16 119/81 (94) 84 Intake & Output 12/24/16 12/24/16 07:00 19:00 Intake Total 0 ml Output Total 950 ml Balance -950 ml 0 ml Intake Oral 0 ml Output Urine Total 950 ml Physical Exam CONSTITUTIONAL/GENERAL: This is an adequately nourished patient. SKIN: dusky. skin temperature warm. CARDIOVASCULAR: Irregular rate and rhythm. heart sounds difficult to auscultate over resp sounds RESPIRATORY/CHEST: Symmetric, mildly labored respirations. mildly tachypneic. Loud oropharyngeal rattle. course rhonchi throughout. GASTROINTESTINAL: Slightly distended. BS intermittent,infrequent GENITOURINARY: Without palpable bladder distension. Muro catheter in place- dark conc.urine, +sediment. MUSCULOSKELETAL: Extremities without clubbing, cyanosis, or edema. NEUROLOGICAL: Does not stir to my light touch or exam. Does not withdraw to pain. No eye opening to touch. PSYCHIATRIC: Appears to be sleeping. Comfortable during my visit. . Diagnostic Tests Laboratory Laboratory Tests Test 12/23/16 06:27 White Blood Count 6.7 TH/MM3 (4.0-11.0) Red Blood Count 3.55 MIL/MM3 (4.50-5.90) Hemoglobin 11.1 GM/DL (13.0-17.0) Hematocrit 33.8 % (39.0-51.0) Mean Corpuscular Volume 95.2 FL (80.0-100.0) Mean Corpuscular Hemoglobin 31.4 PG (27.0-34.0) Mean Corpuscular Hemoglobin Concent 33.0 % (32.0-36.0) Red Cell Distribution Width 14.0 % (11.6-17.2) Platelet Count 136 TH/MM3 (150-450) Mean Platelet Volume 10.3 FL (7.0-11.0) Result Diagram: 12/23/16 0627 Procedures 12/14femoral arterial line right, right IJ central line 12/08--to interventional radiology CT-guided pericardiocentesis . Assessment and Plan Disease Oriented Problem List: (1) V-tach Comment: Status post V. tach arrest (2) Acute CVA (cerebrovascular accident) Comment: Likely embolic (3) ACS (acute coronary syndrome) (4) STEMI (ST elevation myocardial infarction) (5) COPD (chronic obstructive pulmonary disease) (6) Atrial fibrillation with RVR (7) Diabetes Symptom Scale: (1) Dyspnea 0-10 Scale: Unable to quantify (2) Malnutrition 0-10 Scale: Unable to quantify Comment: Albumin 1.7. (3) Pain 0-10 Scale: Unable to quantify (4) Encephalopathy 0-10 Scale: Unable to quantify Pertinent Non-Medical Issues Psychosocial: . 1 son and 1 daughter. Spiritual: Unknown. Legal: Patient is not able to participate in decision-making due to clinical condition. Not clear if he will regain ability. No advanced directive or HCS. According to [place] statutes, health care proxy decision making falls to his spouse. On 12/18/16 wrote a note and verbally stated she DOES NOT wish to serve as healthcare proxy decision maker. Therefore according to [place] statutes health care proxy decision-making falls to the majority of adult children, he has one son and one daughter. Ethical issues impacting care: No known concerns at this time. . Important Contacts * Asiya, daughter: [phone] (co- HCP) * Josse Carrasco, son: [phone] (co- HCP) * Josse Smith's girlfriend: [phone] * Chantal Carrasco [phone] DOES NOT WANT TO SERVE HCP. * Brother Davey Carrasco [phone] . Prognosis This patient was admitted for chest pain, findings of atrial fib RVR, status post multiple ED visits for A. fib, chest pain, status post EPS ablation last month. This admission now with pericardial effusion, sepsis, multiple small areas of infarct per brain MRI, status post V. tach arrest 12/14. Now vented in ICU. High risk for ongoing complications and setbacks though possible patient can survive. Extent of recovery not known at this point, pending clinical course. . Code Status: No Code Plan * Legal decision maker: Patient is not able to participate in decision-making due to clinical condition. Not clear if he will regain ability. No advanced directive or HCS. According to [place] statutes, health care proxy decision making falls to his spouse. On 12/18/16 wrote a note (on chart) and verbally stated via phone that she DOES NOT wish to serve as healthcare proxy decision maker. Therefore according to [place] statutes health care proxy decision-making falls to the majority of adult children, he has one son, Josse and one daughter, Asiya. * Hospice following. COMFORT treatments only. NO escalation of tx. pt comfortable, scheduled medications held today, d/w, education to primary RN regarding symptom management. will continue to evaluate/monitor requirements * NO CODE. * SYMPTOMS: --Dyspnea- on room air. mildly tachypneic. nursing education regarding giving around the clock regimen. will cont to evaluate prn requirements, none required today, nursing education regarding giving around the clock regimen -- Pain- appears comfortable with current meds. nursing education regarding giving around the clock regimen for dyspnea/anxiety -- Encephalopathy- + mult areas small infarct per initial MRI, repeat MRI with global anoxia. transitioned to comfort. Nonresponsive -- Secretions - PRN Levsin and Lasix available. used levsin x1 today , [id number]. * Palliative care will continue to follow during hospital course as condition evolves, to assist patient/decision-maker with understanding of medical conditions, weighing benefits/burdens of treatment options, for clarification of goals of treatment. Additionally will assist with any symptoms of palliative concern. . Attestation To help prompt me to consider important information that might be impacting today's encounter and assessment, information from prior notes written by myself or my colleagues may have been "brought forward" into today's note. My signature on this note, however, is an attestation that I personally performed the exam, history, and/or decision-making noted today, and, unless otherwise indicated, the interactions with patient, family, and staff as well as the review of records all occurred today. I also attest that the listed assessment and stated plan reflect my best clinical judgment today based on the combination of historical information, prior notes, and today's exam/ interactions. When time spent is documented, it refers only to time spent today by the signer, or if indicated, combined time spent today by collaborating physician/nurse practitioner. Radha Bailey Dec 24, 2016 14:28
[2016-12-24] MEDS: RESP: BUDESONIDE 0.5 MG/2 ML NEB NEB SCH (19:34)
[2016-12-24 20:00] VITALS: BP 129/81; PULSE 96; RESP 16; TEMP 99.2; O2SAT 80
[2016-12-25 04:00] VITALS: PULSE 97; O2SAT 80
[2016-12-25] MEDS: HYOSCYAMINE 0.5 MG/ML AMP IV PRN ×2 (05:00→08:51)
[2016-12-25] MEDS: LORazepam 2 MG/ML VIAL IV SCH ×5 (05:01→22:01)
[2016-12-25] MEDS: ARTIFICIAL TEARS OPTH SOLN 15 ML BTL EACH EYE SCH ×3 (05:01→11:44)
[2016-12-25] MEDS: MORPHINE SULFATE 4 MG/ML INJ IV SCH ×5 (05:02→22:02)
[2016-12-25 08:00] VITALS: BP 122/92; PULSE 105; RESP 26; TEMP 100.1; O2SAT 84
[2016-12-25] MEDS: ACETAMINOPHEN 650 MG SUPP RECTAL PRN (08:51)
[2016-12-25] MEDS: LORazepam 2 MG/ML VIAL IV PUSH PRN (11:43)
[2016-12-25 12:00] VITALS: PULSE 102; TEMP 100.1; O2SAT 82
--- NOTE | 2016-12-25 13:06 | HHI.HCPN ---
Reason for visit a. To assist with evaluation and management of symptoms including: dyspnea. b. To assist medical decision maker(s) with: better understanding of current medical conditions; weighing benefits/burdens of medical treatment options; making medical treatment decisions. . Subjective/Interval History Patient seen to follow up on comfort. Dual visit renay BALTAZAR Has been transferred out of ICU, following withdrawal of artificial life support , was admitted to hospice 12/21/16. Is on around the clock morphine 4mg Q 4 hr , ativan 1mg Q4 hr for dyspnea / tachypnea. Review of comfort measures/education regarding management of tachypnea/dyspnea/anxiety following withdrawal of life support. Required 1mg ativan for dyspnea this am per nursing. Has been requiring PRN levsin for secretions/pulmonary congestion. low grade fever 100.1 this am, receiving Tylenol prn Pt seen in room, no visitors present. Nonresponsive. Appears comfortable at time of my exam, breathing comfortably, improved since my assessment yesterday. Course rhonchi throughout. dark concentrated UOP. D.w artist and repertoire manager, primary unit RN. Following exam call to family, update to son Josse. Review hospice tx in place. All questions answered. Review of care center option, he indicates they are not interested in a care center as the hospital is closest for their visitation. . Advance Directives Living Will: Never completed Health Care Surrogate: Never completed Objective Vital Signs Date Time Temp Pulse Resp B/P (MAP) Pulse Ox O2 Delivery O2 Flow Rate FiO2 12/25/16 08:00 100.1 105 26 122/92 (102) 84 12/25/16 05:14 24 12/25/16 04:00 97 80 12/24/16 20:00 99.2 96 16 129/81 (97) 80 Intake & Output 12/25/16 12/25/16 07:00 19:00 Output Total 1400 ml Balance -1400 ml Output Urine Total 1400 ml Physical Exam CONSTITUTIONAL/GENERAL: This is an adequately nourished patient. nonresponsive SKIN: dusky. skin temperature warm. CARDIOVASCULAR: Irregular rate and rhythm. heart sounds difficult to auscultate over resp sounds RESPIRATORY/CHEST: Symmetric, unlabored respirations. course rhonchi throughout. GASTROINTESTINAL: Slightly distended. BS intermittent,infrequent GENITOURINARY: Without palpable bladder distension. Muro catheter in place- dark conc.urine, +sediment. MUSCULOSKELETAL: Extremities without clubbing, cyanosis, or edema. NEUROLOGICAL: Does not stir to my light touch or exam. Does not withdraw to pain. No eye opening to touch. PSYCHIATRIC: Appears to be sleeping. Comfortable during my visit. . Diagnostic Tests Laboratory Laboratory Tests Test 12/23/16 06:27 White Blood Count 6.7 TH/MM3 (4.0-11.0) Red Blood Count 3.55 MIL/MM3 (4.50-5.90) Hemoglobin 11.1 GM/DL (13.0-17.0) Hematocrit 33.8 % (39.0-51.0) Mean Corpuscular Volume 95.2 FL (80.0-100.0) Mean Corpuscular Hemoglobin 31.4 PG (27.0-34.0) Mean Corpuscular Hemoglobin Concent 33.0 % (32.0-36.0) Red Cell Distribution Width 14.0 % (11.6-17.2) Platelet Count 136 TH/MM3 (150-450) Mean Platelet Volume 10.3 FL (7.0-11.0) Result Diagram: 12/23/16 0627 Procedures 12/14femoral arterial line right, right IJ central line 12/08--to interventional radiology CT-guided pericardiocentesis . Assessment and Plan Disease Oriented Problem List: (1) V-tach Comment: Status post V. tach arrest (2) Acute CVA (cerebrovascular accident) Comment: Likely embolic (3) ACS (acute coronary syndrome) (4) STEMI (ST elevation myocardial infarction) (5) COPD (chronic obstructive pulmonary disease) (6) Atrial fibrillation with RVR (7) Diabetes Symptom Scale: (1) Dyspnea 0-10 Scale: Unable to quantify (2) Malnutrition 0-10 Scale: Unable to quantify Comment: Albumin 1.7. (3) Pain 0-10 Scale: Unable to quantify (4) Encephalopathy 0-10 Scale: Unable to quantify Pertinent Non-Medical Issues Psychosocial: . 1 son and 1 daughter. Spiritual: Unknown. Legal: Patient is not able to participate in decision-making due to clinical condition. Not clear if he will regain ability. No advanced directive or HCS. According to [place] statutes, health care proxy decision making falls to his spouse. On 12/18/16 wrote a note and verbally stated she DOES NOT wish to serve as healthcare proxy decision maker. Therefore according to [place] statutes health care proxy decision-making falls to the majority of adult children, he has one son and one daughter. Ethical issues impacting care: No known concerns at this time. . Important Contacts * Asiya, daughter: [phone] (co- HCP) * Josse Carrasco, son: [phone] (co- HCP) * Josse Smith's girlfriend: [phone] * Chantal Carrasco [phone] DOES NOT WANT TO SERVE HCP. * Brother Davey Carrasco [phone] . Prognosis This patient was admitted for chest pain, findings of atrial fib RVR, status post multiple ED visits for A. fib, chest pain, status post EPS ablation last month. This admission now with pericardial effusion, sepsis, multiple small areas of infarct per brain MRI, status post V. tach arrest 12/14. Now vented in ICU. High risk for ongoing complications and setbacks though possible patient can survive. Extent of recovery not known at this point, pending clinical course. . Code Status: No Code Plan * Legal decision maker: Patient is not able to participate in decision-making due to clinical condition. Not clear if he will regain ability. No advanced directive or HCS. According to [place] statutes, health care proxy decision making falls to his spouse. On 12/18/16 wrote a note (on chart) and verbally stated via phone that she DOES NOT wish to serve as healthcare proxy decision maker. Therefore according to [place] statutes health care proxy decision-making falls to the majority of adult children, he has one sonJosse and one daughter, Asiya. * Hospice following. COMFORT treatments only. NO escalation of tx. pt comfortable, scheduled medications being given, appear effective. will continue to evaluate/monitor PRN. requirements. Updated family today, Review of care center option, son indicates they are not interested in a care center as the hospital is closest for their visitation. * NO CODE. * SYMPTOMS: --Dyspnea- on room air. no distress observed today. nursing education regarding giving around the clock regimen. will cont to evaluate prn requirements, required 1 dose 1mg ativan today, nursing education regarding giving around the clock regimen, PRNs for additional sx management. -- Pain- appears comfortable with current meds. nursing education regarding giving around the clock regimen for dyspnea/anxiety -- Encephalopathy- + mult areas small infarct per initial MRI, repeat MRI with global anoxia. transitioned to comfort. Nonresponsive -- Secretions - PRN Levsin and Lasix available. used levsin x2 today , [id number]. -- fever - low grade fever 100. 1 this am, nursing giving Tylenol for comfort per PRN orders. * Palliative care will continue to follow during hospital course as condition evolves, to assist patient/decision-maker with understanding of medical conditions, weighing benefits/burdens of treatment options, for clarification of goals of treatment. Additionally will assist with any symptoms of palliative concern. . Attestation To help prompt me to consider important information that might be impacting today's encounter and assessment, information from prior notes written by myself or my colleagues may have been "brought forward" into today's note. My signature on this note, however, is an attestation that I personally performed the exam, history, and/or decision-making noted today, and, unless otherwise indicated, the interactions with patient, family, and staff as well as the review of records all occurred today. I also attest that the listed assessment and stated plan reflect my best clinical judgment today based on the combination of historical information, prior notes, and today's exam/ interactions. When time spent is documented, it refers only to time spent today by the signer, or if indicated, combined time spent today by collaborating physician/nurse practitioner. Radha Bailey Dec 25, 2016 13:06
[2016-12-25 16:00] VITALS: PULSE 105; RESP 26; TEMP 101.3; O2SAT 78
[2016-12-25] MEDS: RESP: BUDESONIDE 0.5 MG/2 ML NEB NEB SCH (20:00)
[2016-12-26] MEDS: MORPHINE SULFATE 4 MG/ML INJ IV SCH ×6 (01:58→20:25)
[2016-12-26] MEDS: LORazepam 2 MG/ML VIAL IV SCH ×6 (01:59→20:24)
[2016-12-26] MEDS: ARTIFICIAL TEARS OPTH SOLN 15 ML BTL EACH EYE SCH ×5 (02:58→20:24)
[2016-12-26] MEDS: ACETAMINOPHEN 650 MG SUPP RECTAL PRN (07:52)
[2016-12-26] MEDS: MORPHINE SULFATE 4 MG/ML INJ IV PRN ×3 (07:58→13:11)
[2016-12-26 08:00] VITALS: BP 130/76; PULSE 101; RESP 24; TEMP 100.4; O2SAT 77
[2016-12-26] MEDS: RESP: BUDESONIDE 0.5 MG/2 ML NEB NEB SCH (08:00)
[2016-12-26 10:23] VITALS: RESP 21
--- NOTE | 2016-12-26 11:56 | HHI.HCPN ---
Reason for visit a. To assist with evaluation and management of symptoms including: dyspnea, tachypnea. b. To assist medical decision maker(s) with: better understanding of current medical conditions; weighing benefits/burdens of medical treatment options; making medical treatment decisions. . Subjective/Interval History Patient seen to follow up on comfort. Discussed with nurse and hospice nurse. Has been transferred out of ICU, following withdrawal of artificial life support , was admitted to hospice 12/21/16. Is on around the clock morphine 4mg Q4 hr and Lorazepam 1mg Q4 hr for dyspnea / tachypnea. Review of comfort measures/education regarding management of tachypnea/dyspnea/anxiety following withdrawal of life support with nurse. Encouraged use of PRN Morphine and Lorazepam given tachypnea and fever. His respiratory rate is 40-50 during my visit. Meds given with some improvement. Orotracheal secretions appear managed at this time. Low grade fever 100.4 this am, had Tylenol supp. Pt seen in room, no visitors present. Nonresponsive. Tachypneic, appears to be declining. Course rhonchi throughout. dark concentrated UOP. Hospice indicates family is not interested in a care center. . Family/friend interactions No family at bedside. . Advance Directives Living Will: Never completed Health Care Surrogate: Never completed Advance Directive Specifics Significant change in goals: NO CODE. Comfort measures with hospice support, INPATIENT HOSPICE. . Objective Vital Signs Date Time Temp Pulse Resp B/P (MAP) Pulse Ox O2 Delivery O2 Flow Rate FiO2 12/26/16 10:23 21 12/26/16 08:00 100.4 101 24 130/76 (94) 77 12/26/16 03:02 16 12/25/16 16:00 101.3 105 26 78 12/25/16 12:00 100.1 102 82 Intake & Output 12/26/16 12/26/16 07:00 19:00 Output Total 750 ml 450 ml Balance -750 ml -450 ml Output Urine Total 750 ml 450 ml Physical Exam CONSTITUTIONAL/GENERAL: This is an adequately nourished patient. nonresponsive SKIN: dusky. skin temperature warm. CARDIOVASCULAR: Irregular rate and rhythm. heart sounds difficult to auscultate over resp sounds RESPIRATORY/CHEST: labored respirations, tachypneic, rate 40s. Course rhonchi throughout. GASTROINTESTINAL: Slightly distended. BS intermittent,infrequent GENITOURINARY: Without palpable bladder distension. Muro catheter in place- dark conc.urine, +sediment. MUSCULOSKELETAL: Extremities without clubbing, cyanosis, or edema. NEUROLOGICAL: Does not stir to my light touch or exam. Does not withdraw to pain. No eye opening to touch. PSYCHIATRIC: Appears to be sleeping. Comfortable during my visit. . Diagnostic Tests Result Diagram: 12/23/16 0627 Procedures 12/14femoral arterial line right, right IJ central line 12/08--to interventional radiology CT-guided pericardiocentesis . Assessment and Plan Disease Oriented Problem List: (1) V-tach Comment: Status post V. tach arrest (2) Acute CVA (cerebrovascular accident) Comment: Likely embolic (3) ACS (acute coronary syndrome) (4) STEMI (ST elevation myocardial infarction) (5) COPD (chronic obstructive pulmonary disease) (6) Atrial fibrillation with RVR (7) Diabetes Symptom Scale: (1) Dyspnea 0-10 Scale: Unable to quantify (2) Malnutrition 0-10 Scale: Unable to quantify Comment: Albumin 1.7. (3) Pain 0-10 Scale: Unable to quantify (4) Encephalopathy 0-10 Scale: Unable to quantify Pertinent Non-Medical Issues Psychosocial: . 1 son and 1 daughter. Spiritual: Unknown. Legal: Patient is not able to participate in decision-making due to clinical condition. Not clear if he will regain ability. No advanced directive or HCS. According to [place] statutes, health care proxy decision making falls to his spouse. On 12/18/16 wrote a note and verbally stated she DOES NOT wish to serve as healthcare proxy decision maker. Therefore according to [place] statutes health care proxy decision-making falls to the majority of adult children, he has one son and one daughter. Ethical issues impacting care: No known concerns at this time. . Important Contacts * Asiya, daughter: [phone] (co- HCP) * Josse Carrasco, son: [phone] (co- HCP) * Josse Smith's girlfriend: [phone] * Chantal Carrasco [phone] DOES NOT WANT TO SERVE HCP. * Brother Davey Carrasco [phone] . Prognosis This patient was admitted for chest pain, findings of atrial fib RVR, status post multiple ED visits for A. fib, chest pain, status post EPS ablation last month. This admission now with pericardial effusion, sepsis, multiple small areas of infarct per brain MRI, status post V. tach arrest 12/14. Now vented in ICU. High risk for ongoing complications and setbacks though possible patient can survive. Extent of recovery not known at this point, pending clinical course. . Code Status: No Code Plan * Legal decision maker: Patient is not able to participate in decision-making due to clinical condition. Not clear if he will regain ability. No advanced directive or HCS. According to [place] statutes, health care proxy decision making falls to his spouse. On 12/18/16 wrote a note (on chart) and verbally stated via phone that she DOES NOT wish to serve as healthcare proxy decision maker. Therefore according to [place] statutes health care proxy decision-making falls to the majority of adult children, he has one son, Josse and one daughter, Asiya. * INPATIENT Hospice. COMFORT treatments only. NO escalation of tx. pt comfortable, scheduled medications being given, appear effective, encouarged PRN use and to call if no improvement in tachypnea. Will continue to evaluate/ monitor PRN. requirements. Family has declined care center placement. * NO CODE. * SYMPTOMS: --Dyspnea- on room air. Tachypneic today, encouraged nurse to use PRN and call if not effective, until today sparing PRN need. Has had 2 doses this morning. Will make adjustments if needed. Educated nurse to use PRN meds in addition to scheduled meds. -- Pain- appears comfortable with current meds. nursing education regarding giving around the clock regimen for dyspnea/anxiety -- Encephalopathy- + mult areas small infarct per initial MRI, repeat MRI with global anoxia. transitioned to comfort. Nonresponsive -- Secretions - PRN Levsin and Lasix available. sparing need. Will monitor. -- Fever - low grade fever 100.4 this am, nursing giving Tylenol for comfort per PRN orders. * Palliative care will continue to follow during hospital course as condition evolves, to assist patient/decision-maker with understanding of medical conditions, weighing benefits/burdens of treatment options, for clarification of goals of treatment. Additionally will assist with any symptoms of palliative concern. . Attestation To help prompt me to consider important information that might be impacting today's encounter and assessment, information from prior notes written by myself or my colleagues may have been "brought forward" into today's note. My signature on this note, however, is an attestation that I personally performed the exam, history, and/or decision-making noted today, and, unless otherwise indicated, the interactions with patient, family, and staff as well as the review of records all occurred today. I also attest that the listed assessment and stated plan reflect my best clinical judgment today based on the combination of historical information, prior notes, and today's exam/ interactions. When time spent is documented, it refers only to time spent today by the signer, or if indicated, combined time spent today by collaborating physician/nurse practitioner. Beronica Solomon Dec 26, 2016 11:56
[2016-12-26 13:00] VITALS: BP 102/63; PULSE 102; RESP 18; TEMP 100; O2SAT 72
[2016-12-26] MEDS: LORazepam 2 MG/ML VIAL IV PRN (14:51)
[2016-12-26 16:00] VITALS: BP 84/49; PULSE 98; RESP 20; TEMP 98.8; O2SAT 78
[2016-12-26 20:00] VITALS: BP 93/59; PULSE 95; RESP 18; TEMP 97.5; O2SAT 73
[2016-12-26] MEDS: HYOSCYAMINE 0.5 MG/ML AMP IV PRN (20:45)
[2016-12-27] VITALS: BP 92/56; PULSE 101; RESP 16; TEMP 99.6; O2SAT 73
[2016-12-27] MEDS: MORPHINE SULFATE 4 MG/ML INJ IV SCH (01:27)
[2016-12-27] MEDS: LORazepam 2 MG/ML VIAL IV SCH (01:28)
--- NOTE | 2017-02-01 14:08 | HHI.DS ---
Summary Note Date of : Dec 27, 2016 Time Of : 314 Admission Date Dec 07, 2016 at 09:40 Admitting Diagnosis atrial fibrillation with RVR. Chest pain. Diagnosis at Time of : (1) Atrial fibrillation with RVR ICD Code: I48.91 - Unspecified atrial fibrillation (2) Hyponatremia ICD Code: E87.1 - Hypo-osmolality and hyponatremia (3) Pericardial effusion ICD Code: I31.3 - Pericardial effusion (noninflammatory) (4) Lung consolidation ICD Code: J18.1 - Lobar pneumonia, unspecified organism (5) COPD (chronic obstructive pulmonary disease) ICD Code: J44.9 - Chronic obstructive pulmonary disease, unspecified (6) Hypertension ICD Code: I10 - Hypertension (7) Chest pain ICD Code: R07.9 - Chest pain, unspecified Diagnosis: Principal (8) STEMI (ST elevation myocardial infarction) ICD Code: I21.3 - ST elevation (STEMI) myocardial infarction of unspecified site Diagnosis: Principal (9) ACS (acute coronary syndrome) ICD Code: I24.9 - Acute ischemic heart disease, unspecified Diagnosis: Principal (10) Encephalopathy ICD Code: G93.40 - Encephalopathy, unspecified Diagnosis: Principal Procedures Intubation Extubation Brief History Presented with chest pain, suffered cardiac arrest, respiratory failure Intubated, mechanical ventilation but significant encephalopathy Life support withdrawn and transitioned to comfort care Significant Findings In his final days he was unresponsive Imaging Last Impressions Chest X-Ray 12/19/16 0600 Signed Impressions: Service Date/Time: Monday, December 19, 2016 03:22 - CONCLUSION: 1. Bilateral mostly basilar airspace disease, left greater than right. Support apparatus in satisfactory position. No significant change since December 18. Laurent Pool MD Brain MRI 12/18/16 0900 Signed Impressions: Service Date/Time: Sunday, December 18, 2016 11:07 - CONCLUSION: Diffuse abnormal diffusion signal within sulci and gyri of both hemispheres, the caudate, basal ganglia and cerebellar hemispheres. The findings are concerning for global and anoxia. This is significantly worse than seen on previous study. Bakari Vera MD Abdomen X-Ray 12/18/16 0000 Signed Impressions: Service Date/Time: Sunday, December 18, 2016 13:59 - CONCLUSION: Nasogastric tube is just cross the GE junction. There is no free air. Ang Vera MD FACR Head CT 12/17/16 0000 Signed Impressions: Service Date/Time: December 17:01 - CONCLUSION: 1. The study is degraded by streak and motion artifact limiting. 2. Stable area of decreased attenuation noted in the left basal ganglia. This appears to correspond to one of the areas of subacute infarction seen on MRI. 3. No definite acute hemorrhage or mass effect visualized. Mt Dodd MD Neck CTA 12/14/16 0000 Signed Impressions: Service Date/Time: Wednesday, December 14, 2016 04:20 - CONCLUSION: No significant stenoses in the carotids. Incidental note of bilateral pleural effusions and upper lobe emphysema. Aristeo Tellez MD Head CTA 12/14/16 0000 Signed Impressions: Service Date/Time: Wednesday, December 14, 2016 04:20 - CONCLUSION: Negative intracranial CTA. No evidence of vessel truncation. Aristeo Tellez MD Chest CT 12/12/16 0000 Signed Impressions: Service Date/Time: Monday, December 12, 2016 12:13 - CONCLUSION: 1. Small bilateral pleural effusions and subsegmental consolidating airspace disease in the bases. 2. Persistent small pericardial effusion. 3. No other significant abnormality. Roman Cordero MD Pericardiocentesis 12/08/16 0815 Signed Impressions: Service Date/Time: Thursday, December 08, 2016 08:43 - CONCLUSION: Uncomplicated CT-guided pericardial centesis as above. Roman Cordero MD Last Impressions Chest X-Ray 12/16/16 Signed Impressions: Service Date/Time: Friday, December 16, 2016 04:31 - CONCLUSION: Interval increase in left lower lobe consolidation. Aristeo Tellez MD Neck CTA 12/14/16 0000 Signed Impressions: Service Date/Time: Wednesday, December 14, 2016 04:20 - CONCLUSION: No significant stenoses in the carotids. Incidental note of bilateral pleural effusions and upper lobe emphysema. Aristeo Tellez MD Head CTA 12/14/16 0000 Signed Impressions: Service Date/Time: Wednesday, December 14, 2016 04:20 - CONCLUSION: Negative intracranial CTA. No evidence of vessel truncation. Aristeo Tellez MD Head CT 8/14/17 0000 Signed Impressions: Service Date/Time: Wednesday, December 14, 2016 14:56 - CONCLUSION: 1. There is a new 6 mm area low density in the left basal ganglia which could represent a recent area of ischemia. There is stable encephalomalacia in the right cerebellum. 2. Nonspecific punctate areas of air near the right cerebellum and left occipital region. These are of uncertain etiology but may be related to retrograde venous air. The air in the right cerebellar region is near the sinus. Since this is of uncertain etiology consider followup CT to assess for change. 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 No bleed, mass effect or midline shift. Davey Nicholas MD Chest CT 12/12/16 Signed Impressions: Service Date/Time: Monday, December 12, 2016 12:13 - CONCLUSION: 1. Small bilateral pleural effusions and subsegmental consolidating airspace disease in the bases. 2. Persistent small pericardial effusion. 3. No other significant abnormality. Roman Cordero MD Pericardiocentesis 12/08/16 0815 Signed Impressions: Service Date/Time: Thursday, December 08, 2016 08:43 - CONCLUSION: Uncomplicated CT-guided pericardial centesis as above. Roman Cordero MD Last Impressions Neck CTA 12/14/16 Signed Impressions: Service Date/Time: Wednesday, December 14, 2016 04:20 - CONCLUSION: No significant stenoses in the carotids. Incidental note of bilateral pleural effusions and upper lobe emphysema. Aristeo Tellez MD Head CTA 12/14/16 Signed Impressions: Service Date/Time: Wednesday, December 14, 2016 04:20 - CONCLUSION: Negative intracranial CTA. No evidence of vessel truncation. Aristeo Tellez MD Head CT 12/14/16 Signed Impressions: Service Date/Time: Wednesday, December 14, 2016 14:56 - CONCLUSION: 1. There is a new 6 mm area low density in the left basal ganglia which could represent a recent area of ischemia. There is stable encephalomalacia in the right cerebellum. 2. Nonspecific punctate areas of air near the right cerebellum and left occipital region. These are of uncertain etiology but may be related to retrograde venous air. The air in the right cerebellar region is near the sinus. Since this is of uncertain etiology consider followup CT to assess for change. Davey Hernandez MD Chest X-Ray 12/14/16 0000 Signed Impressions: Service Date/Time: Wednesday, December 14, 2016 09:26 - CONCLUSION: Support apparatus in good position. 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 No bleed, mass effect or midline shift. Davey Nicholas MD Chest CT 12/12/16 0000 Signed Impressions: Service Date/Time: Monday, December 12, 2016 12:13 - CONCLUSION: 1. Small bilateral pleural effusions and subsegmental consolidating airspace disease in the bases. 2. Persistent small pericardial effusion. 3. No other significant abnormality. Roman Cordero MD Pericardiocentesis 12/08/16 0815 Signed Impressions: Service Date/Time: Thursday, December 08, 2016 08:43 - CONCLUSION: Uncomplicated CT-guided pericardial centesis as above. Roman Cordero MD Hospital Course Withdrawn from life support, transition to comfort care peacefully Stephanie Lai MD Feb 01, 2017 14:08
== END 2016-12-27 06:00 | disposition expired ==
LOC: NEPE 07:55 → NEDA 09:40 → NEDH 19:53 → N04A 12-08 00:10 → HCIS 12-08 09:46 → HIMW 12-14 06:00 → HOCB 12-22 19:38
PROVIDERS: ADMIT Family Medicine Hospice and Palliative Medicine; ATTEND Family Medicine Hospice and Palliative Medicine
PROC: 0W9D30Z Drainage of Pericardial Cavity with Drainage Device, Percutaneous Approach (ICD-10-PCS; 2016-12-08)
PROC: 04HY32Z Insertion of Monitoring Device into Lower Artery, Percutaneous Approach (ICD-10-PCS; principal; 2016-12-14)
PROC: 5A1955Z Respiratory Ventilation, Greater than 96 Consecutive Hours (ICD-10-PCS; 2016-12-14)
PROC: 4A133B1 Monitoring of Arterial Pressure, Peripheral, Percutaneous Approach (ICD-10-PCS; 2016-12-14)
PROC: 4A133J1 Monitoring of Arterial Pulse, Peripheral, Percutaneous Approach (ICD-10-PCS; 2016-12-14)
PROC: 5A2204Z Restoration of Cardiac Rhythm, Single (ICD-10-PCS; 2016-12-14)
PROC: 0BH17EZ Insertion of Endotracheal Airway into Trachea, Via Natural or Artificial Opening (ICD-10-PCS; 2016-12-14)
PROC: 05HM33Z Insertion of Infusion Device into Right Internal Jugular Vein, Percutaneous Approach (ICD-10-PCS; 2016-12-14)
PROC: B246ZZ4 Ultrasonography of Right and Left Heart, Transesophageal (ICD-10-PCS; 2016-12-15)
DX: I48.0 Paroxysmal atrial fibrillation (principal); J96.91 Respiratory failure, unspecified with hypoxia; I21.19 ST elevation (STEMI) myocardial infarction involving other coronary artery of inferior wall; I63.40 Cerebral infarction due to embolism of unspecified cerebral artery; R65.21 Severe sepsis with septic shock; A40.8 Other streptococcal sepsis; E87.2 Acidosis; E46 Unspecified protein-calorie malnutrition; G93.40 Encephalopathy, unspecified; I31.4 Cardiac tamponade; E87.1 Hypo-osmolality and hyponatremia; I31.3 Pericardial effusion (noninflammatory); G81.94 Hemiplegia, unspecified affecting left nondominant side; J44.1 Chronic obstructive pulmonary disease with (acute) exacerbation; I47.2 Ventricular tachycardia; I10 Essential (primary) hypertension; R07.9 Chest pain, unspecified; E11.9 Type 2 diabetes mellitus without complications; E78.00 Pure hypercholesterolemia, unspecified; K21.9 Gastro-esophageal reflux disease without esophagitis; F41.9 Anxiety disorder, unspecified; N52.9 Male erectile dysfunction, unspecified; E86.0 Dehydration; R91.8 Other nonspecific abnormal finding of lung field; I48.2 Chronic atrial fibrillation; Z87.891 Personal history of nicotine dependence; Z79.01 Long term (current) use of anticoagulants; Z85.46 Personal history of malignant neoplasm of prostate; Z92.3 Personal history of irradiation; I27.2 Other secondary pulmonary hypertension; K59.00 Constipation, unspecified; Z51.5 Encounter for palliative care; R56.9 Unspecified convulsions; G93.89 Other specified disorders of brain; R19.7 Diarrhea, unspecified; I08.3 Combined rheumatic disorders of mitral, aortic and tricuspid valves; Z66 Do not resuscitate
CPT/HCPCS: 31500; 33010; 36556; 36600; 70450; 70496; 70498; 70551; 71010; 71250; 74020; 76937; 77012; 80048; 80053; 80202; 81001; 82435; 82550; 82565; 82805; 82947; 83036; 83605; 83615; 83735; 83880; 83930; 83935; 84100; 84132; 84155; 84157; 84295; 84300; 84315; 84443; 84484; 84520; 85025; 85027; 85384; 85610; 85730; 86850; 86900; 86901; 87015; 87040; 87070; 87116; 87205; 87206; 87449; 87641; 89051; 93005; 93306; 93308; 93312; 93320; 93325; 94002; 94003; 94150; 94640; 94664; 95819; 96361; 96374; 96375; C1729; C1769; C9113; J0171; J0282; J1160; J1644; J1650; J1720; J1940; J1953; J1980; J2060; J2150; J2250; J2270; J2370; J2543; J2920; J2930; J3010; J3370; J3475; J7030; J7040; J7050; J7060; J7070; J7512; J7626; J7644; Q9967